=== PATIENT | female | born 1935 | race Caucasian/White ===

== ENCOUNTER 2016-12-10 06:57 | Day surgery (SDC) | payer MEDICARE ==
[2016-12-08 13:23] VITALS: BMI 39.3
[~2016-12-10 06:57] MED LIST: LACTATED RINGERS 1,000 ML IV SCH
[2016-12-10 07:12] VITALS: TEMP 97.1
[2016-12-10] MEDS ORDERED: LACTATED RINGERS 1,000 ML IV ONE (07:17)
[2016-12-10 07:21] LABS: Glucose,Whole Blood 67 mg/dL (75-99)
[2016-12-10] MEDS ORDERED: DEXTROSE 50%-WATER 50 ML SYRINGE IVP ONE (07:28)
[2016-12-10] MEDS ORDERED: PROPOFOL 10 MG/ML 20 ML VIAL IV ONE (07:32)
[2016-12-10 08:08] VITALS: RESP 16
--- NOTE | 2016-12-10 08:10 | P.PCN ---
Date of Procedure: 12/10/16 Procedure(s) Performed: BRIEF HISTORY: Patient is a 81-year-old pleasant white female, scheduled for an elective colonoscopy as a part of evaluation of prior history of colon polyps. Her last colonoscopy was in 5 years ago. PROCEDURE PERFORMED: Colonoscopy. PREOPERATIVE DIAGNOSIS: History of colon polyps. IV sedation per Anesthesia. PROCEDURE: After informed consent was obtained, the patient, was brought into the endoscopy unit. IV conscious sedation was administered by Anesthesia under continuous monitoring. Initially the Olympus CF-160 flexible video colonoscope was then inserted in the rectum, gradually advanced into the cecum without any difficulty. Careful examination was performed as the scope was gradually being withdrawn. Ileocecal valve and the appendiceal orifice were visualized and appeared normal. Prep was excellent. Mucosa of the cecum, ascending colon, transverse colon, descending colon, sigmoid colon, and rectum appeared normal. Scattered sigmoid diverticulosis seen. Retroflexion was performed in the rectum and small internal hemorrhoids were seen. The patient tolerated the procedure well. IMPRESSION: Normal-appearing colon from rectum to cecum with no evidence of colorectal neoplasia. Scattered sigmoid diverticulosis and small internal hemorrhoids RECOMMENDATIONS: Findings of this examination were discussed with the patient as well as a family. She was advised to be a high-fiber diet and take fiber supplements a regular basis. At her age I would not recommend any further surveillance colonoscopy..
[2016-12-10 08:15] LABS: Glucose,Whole Blood 168 mg/dL (75-99)
[2016-12-10 08:24] VITALS: BP 128/48; PULSE 66
== END 2016-12-10 08:51 | disposition home or self-care (01) ==
LOC: ORWHC2ENDO 06:57
PROVIDERS: ATTEND Internal Medicine Gastroenterology
DX: Z12.11 Encounter for screening for malignant neoplasm of colon (principal); K57.30 Diverticulosis of large intestine without perforation or abscess without bleeding; K64.8 Other hemorrhoids; I25.10 Atherosclerotic heart disease of native coronary artery without angina pectoris; I10 Essential (primary) hypertension; E78.5 Hyperlipidemia, unspecified; G47.33 Obstructive sleep apnea (adult) (pediatric); E11.9 Type 2 diabetes mellitus without complications; K21.9 Gastro-esophageal reflux disease without esophagitis; Z86.010 Personal history of colon polyps; Z79.84 Long term (current) use of oral hypoglycemic drugs; Z79.02 Long term (current) use of antithrombotics/antiplatelets; Z79.899 Other long term (current) drug therapy
CPT/HCPCS: J2704; G0105

== ENCOUNTER → 2017-04-20 | Outpatient (CLI) | payer MEDICARE | END | disposition home or self-care (01) | LOC: LABWHC1 14:38 | PROVIDERS: ATTEND Nurse Practitioner Family | DX: N18.3 Chronic kidney disease, stage 3 (moderate) (principal) | CPT/HCPCS: 36415; 84132 ==

== ENCOUNTER → 2017-05-18 | Outpatient (CLI) | payer MEDICARE ==
--- NOTE | 2017-05-19 09:49 | MM ---
Reason for exam: screening (asymptomatic). Last mammogram was performed 1 year ago. History: Patient is postmenopausal. Physical Findings: A clinical breast exam by your physician is recommended on an annual basis and results should be correlated with mammographic findings. MG Screening Mammo w CAD Bilateral CC and MLO view(s) were taken. Prior study comparison: May 14, 2016, bilateral MG screening mammo w CAD. May 09, 2015, bilateral MG screening mammo w CAD. May 08, 2014, bilateral MG screening mammo w CAD. There are scattered fibroglandular densities. There is chronic nodularity bilaterally. No significant changes when compared with prior studies. ASSESSMENT: Benign, BI-RAD 2 RECOMMENDATION: Routine screening mammogram of both breasts in 1 year.
== END | disposition home or self-care (01) ==
LOC: RADMAMWWP 13:04
PROVIDERS: ATTEND Internal Medicine
DX: Z12.31 Encounter for screening mammogram for malignant neoplasm of breast (principal)

== ENCOUNTER → 2017-07-01 | Outpatient (CLI) | payer MEDICARE ==
[2017-07-01 10:42] LABS: Calcium 9.1 mg/dL (8.4-10.2); Potassium 3.3 mmol/L (3.5-5.1); Total Bilirubin 0.5 mg/dL (0.2-1.3); Total Protein 6.6 g/dL (6.3-8.2)
== END | disposition home or self-care (01) ==
LOC: LABWHC1 09:16
PROVIDERS: ATTEND Internal Medicine Interventional Cardiology
DX: E87.6 Hypokalemia (principal); E78.2 Mixed hyperlipidemia
CPT/HCPCS: 36415; 80053; 80061

== ENCOUNTER → 2017-07-11 | Outpatient (CLI) | payer MEDICARE ==
[2017-07-11 14:54] LABS: Calcium 8.9 mg/dL (8.4-10.2); Magnesium 1.9 mg/dL (1.6-2.3); Phosphorus 3.7 mg/dL (2.5-4.5); Potassium 3.8 mmol/L (3.5-5.1); Total Bilirubin 0.4 mg/dL (0.2-1.3); Total Protein 6.4 g/dL (6.3-8.2); Uric Acid 10.7 mg/dL (3.7-7.4)
[2017-07-11 16:15] LABS: CH 30.2; CHCM 32.1; HCT 31.1 % (34.0-46.0); HDW 2.55; HGB 10.2 gm/dL (11.4-16.0); MCH 31.1 pg (25.0-35.0); MCHC 32.9 g/dL (31.0-37.0); MCV 94.6 fL (80.0-100.0); Mean Platelet Volume 8.4; RBC 3.29 m/uL (3.80-5.40); RDW 14.7 % (11.5-15.5); WBC 11.3 k/uL (3.8-10.6)
[2017-07-11 17:34] LABS: Appearance,Urine Clear (Clear); Bacteria,Urine Rare /hpf; Bilirubin,Urine Negative (Negative); Glucose,Urine (UA) Negative (Negative); Ketones,Urine Negative (Negative); Leukocyte Esterase,Urine Small (Negative); Mucus,Urine Rare /hpf; Nitrite,Urine Negative (Negative); PH, Urine 7.5 (5.0-8.0); Particle Count 1205; Protein,Urine Trace (Negative); RBC,Urine 2 /hpf (0-5); Squamous Epithelial Cell,Urine 2 /hpf (0-4); UA Billing (MACRO vs. MICRO) MICRO; Urobilinogen,Urine <2.0 mg/dL (<2.0); WBC,Urine 11 /hpf (0-5)
[2017-07-11 20:15] LABS: Iron Saturation 11.95 (12.00-45.00)
[2017-07-12 03:06] LABS: Urine Creatinine 74.4 mg/dL
== END | disposition home or self-care (01) ==
LOC: LABWHC1 12:09
PROVIDERS: ATTEND Nurse Practitioner Family
DX: N18.3 Chronic kidney disease, stage 3 (moderate) (principal); D63.1 Anemia in chronic kidney disease; N39.0 Urinary tract infection, site not specified; R80.9 Proteinuria, unspecified; E21.3 Hyperparathyroidism, unspecified; E55.9 Vitamin D deficiency, unspecified; M10.9 Gout, unspecified
CPT/HCPCS: 36415; 80053; 81001; 82043; 82306; 82570; 82728; 83540; 83550; 83735; 83970; 84100; 84550; 85027

== ENCOUNTER → 2017-08-30 | Outpatient (CLI) | payer MEDICARE ==
[2017-08-30 10:21] LABS: Calcium 9.4 mg/dL (8.4-10.2); Potassium 4.2 mmol/L (3.5-5.1); Total Bilirubin 0.4 mg/dL (0.2-1.3); Total Protein 6.4 g/dL (6.3-8.2)
== END | disposition home or self-care (01) ==
LOC: LABWHC1 08:40
PROVIDERS: ATTEND Internal Medicine Interventional Cardiology
DX: E78.2 Mixed hyperlipidemia (principal); E11.9 Type 2 diabetes mellitus without complications
CPT/HCPCS: 36415; 80053; 80061; 83036

== ENCOUNTER 2017-11-16 06:03 | Day surgery (SDC) | payer MEDICARE ==
[2017-11-07 11:56] VITALS: BMI 34.5
[~2017-11-16 06:03] MED LIST changes: +ALPRAZolam 0.25 MG TAB PO PRN; +ALPRAZolam 0.5 MG TAB PO PRN; +ASPIRIN 325 MG TAB PO STA; +ATORVASTATIN 80 MG TAB PO STA; -LACTATED RINGERS 1,000 ML IV SCH; +NITROGLYCERIN SL TABS 0.4 MG TAB SUBLINGUAL PRN; +SODIUM CHLORIDE 0.9% 1,000 ML in EMPTY BAG 1 BAG IV ONE
[2017-11-16 06:27] LABS: Glucose,Whole Blood 177 mg/dL (75-99)
[2017-11-16 06:37] VITALS: TEMP 99.1
[2017-11-16] MEDS ORDERED: fentaNYL (PF) 50 MCG/ML 2 ML AMP ONE ×2 (06:48→10:00)
[2017-11-16] MEDS ORDERED: MIDAZOLAM 2 MG/2 ML VIAL ONE (06:49)
[2017-11-16 06:51] LABS: Anion Gap 11 mmol/L; Blood Urea Nitrogen 22 mg/dL (7-17); Calcium 8.6 mg/dL (8.4-10.2); Carbon Dioxide 22 mmol/L (22-30); Chloride 104 mmol/L (98-107); Glucose 172 mg/dL (74-99); Potassium 4.2 mmol/L (3.5-5.1); Sodium 137 mmol/L (137-145)
[2017-11-16] MEDS: BENZOCAINE SPRAY 1 SPRAY CAN MUCOUS MEM ONE ×5 (07:00→07:44)
[2017-11-16] MEDS ORDERED: SODIUM CHLORIDE 0.9% 1,000 ML IV ONE (07:14)
[2017-11-16] MEDS ORDERED: fentaNYL (PF) 50 MCG/ML 2 ML AMP IVP ONE ×2 (07:20→10:02)
[2017-11-16] MEDS: MIDAZOLAM 2 MG/2 ML VIAL IVP ONE ×2 (07:20→07:21)
--- NOTE | 2017-11-16 08:10 | ECHOT ---
TRANSESOPHAGEAL ECHOCARDIOGRAM INDICATION: Evaluation of aortic valve. PROCEDURE: After explaining the procedure to the patient as well as the risks and complications, blood pressure, heart rate, with sedation was monitored. The throat was sprayed with Cetacaine. She received 2 mg intravenous Versed, 25 mcg intravenous fentanyl. After achieving moderate conscious sedated state, the probe was introduced in the esophagus without difficulty. Images were obtained. Following that, the probe was removed. There was no immediate complication. FINDINGS: Left atrial size is mildly dilated. Left atrial appendage is normal. Left ventricular size and systolic function normal. Concentric left ventricular hypertrophy was noted. The aortic valve is a tricuspid valve calcified with reduced opening. By planimetry, the valve areas ranging between 0.7 and 1.0 centimeter square. The mitral valve revealed annulus calcification. Tricuspid valve appears normal. Descending thoracic aorta revealed moderate atherosclerotic changes. No pericardial effusion was noted. Contrast bubble study revealed no evidence of shunting across the interatrial septum. Doppler, pulse wave and color Doppler obtained and revealed a mild mitral, aortic, and tricuspid regurgitation. The peak gradient across the aortic valve was 71 mmHg with a mean of 50 mmHg. A [id number] shunting through a patent foramen ovale was noted. CONCLUSION: 1. Mildly dilated left atrium with normal appearance of left atrial appendage. 2. Normal left ventricular size and systolic function with concentric left ventricular hypertrophy. 3. Severe aortic stenosis with a mean gradient of 50 mmHg with mild aortic regurgitation. 4. Mitral annulus calcification with mild mitral regurgitation. 5. Mild tricuspid regurgitation. 6. Moderate atherosclerotic changes of the descending thoracic aorta. 7. Patent foramen ovale with [id number] shunting. 8. No pericardial effusion was noted. MMODL / IJN: [id number] /
[2017-11-16 08:47] VITALS: PULSE 98
[2017-11-16 08:54] LABS: Basophils % (A) 0 %; Eosinophils # (A) 0.2 k/uL (0-0.7); Eosinophils % (A) 2 %; HCT 30.5 % (34.0-46.0); HGB 10.2 gm/dL (11.4-16.0); Lymphocytes # (A) 1.5 k/uL (1.0-4.8); Lymphocytes % (A) 15 %; MCH 31.7 pg (25.0-35.0); MCHC 33.4 g/dL (31.0-37.0); MCV 95.1 fL (80.0-100.0); Mean Platelet Volume 8.1; Monocytes # (A) 0.7 k/uL (0-1.0); Monocytes % (A) 7 %; Neutrophils # (A) 7.4 k/uL (1.3-7.7); Neutrophils % (A) 75 %; Platelet Count 227 k/uL (150-450); RBC 3.21 m/uL (3.80-5.40); RDW 14.1 % (11.5-15.5)
[2017-11-16] MEDS ORDERED: IV FLUID CONTINUATION 300 ML IV ONE (09:47)
[2017-11-16 09:59] LABS: Glucose,Whole Blood 184 mg/dL (75-99)
[2017-11-16] MEDS ORDERED: LIDOCAINE 2% INJ 20 MG/ML SQ ONE (10:04)
[2017-11-16 10:26] LABS: O2 Sat Blood Gas 59.4 %
[2017-11-16 10:28] LABS: O2 Sat Blood Gas 85.6 %
[2017-11-16 10:30] LABS: O2 Sat Blood Gas 57.6 %
[2017-11-16] MEDS ORDERED: IODIXANOL 320 MG/ML 100 ML INTRAARTER ONE (10:35)
[2017-11-16] MEDS ORDERED: RX INFO: IV CONTRAST WAS GIVEN 1 EACH MISC MISCELLANE PRN (10:39)
[2017-11-16] MEDS ORDERED: NITROGLYCERIN SL TABS 0.4 MG TAB SUBLINGUAL PRN (10:40)
[2017-11-16] MEDS ORDERED: PROCRIT INJ SCH (10:45)
[2017-11-16] MEDS ORDERED: SODIUM CHLORIDE 0.9% 1,000 ML IV SCH (10:45)
[2017-11-16] MEDS ORDERED: amLODIPine 5 MG TAB PO STA (10:53)
[2017-11-16] MEDS ORDERED: FUROSEMIDE 10 MG/ML 4 ML VIAL ONE (10:53)
[2017-11-16] MEDS ORDERED: FUROSEMIDE 10 MG/ML 2 ML VIAL IV ONE (10:53)
[2017-11-16] MEDS ORDERED: hydrALAZINE HCL 50 MG TAB PO STA (11:27)
--- NOTE | 2017-11-16 11:43 | CC ---
CARDIAC CATHETERIZATION REPORT Mrs. Fajardo is an 82-year-old female known history of hypertension, hyperlipidemia, diabetes mellitus, as well, history of aortic stenosis, who has been complaining of progressive dyspnea and fatigue and she had evidence of progressive aortic stenosis. In view of that, recommendation made regarding cardiac catheterization. The procedures, risks and complications were discussed with the patient who is in full understanding and agreement. PROCEDURE: Patient was brought to [facility] in fasting semi-sedated state after receiving fentanyl and Benadryl and achieving moderate conscious sedated state. Using Xylocaine anesthesia and Seldinger technique, a 6-Turkmen sheath was introduced in the right femoral artery and an 8-Turkmen sheath in the right femoral vein. Right heart catheterization was performed using Harford-Garry catheter, multiple pressure and samples were obtained. Cardiac output by thermodilution was calculated. Following that, selective right and left coronary angiography were performed using 6-Turkmen 4 bend right and left Sharon catheter and multiple views of the coronary artery including hemiaxial views were obtained. Following that, the right Sharon catheter was used to cross the aortic valve and simultaneous pressure was performed. Following that, catheter and sheaths were removed. Hemostasis was obtained with compression of the right groin. There were no immediate complications. Patient was returned to her room in stable condition. FINDINGS: HEMODYNAMICS: Pulmonary saturation 60%, right atrial saturation 8%, femoral artery saturation of 86%. Cardiac output by thermodilution 9.5 L/minute and by KATHRYN 5.6 mL/minute. Pulmonary artery systolic pressure of 60 with a diastolic of 10 and mean of 30 mmHg. Pulmonary capillary wedge pressure: A-wave of 30, V-wave of 25 with a mean of 22 mmHg. Right ventricular systolic pressure of 60 with an end-diastolic pressure of 8 mmHg. Right atrium pressure of A-wave of 12 with a V-wave of 12 and a mean of 12 mmHg. Left ventricular end-diastolic pressure 24 mm Hg. The peak gradient across the aortic valve was close to 60 mmHg. Aortic valve area by HAKKI formula 0.7 cm2. CORONARIES: 1. FLUOROSCOPY: There is calcification involving the coronary arteries as well as the aortic valve. 2. LEFT MAIN: This is a large-sized vessel bifurcating into left circumflex, left anterior descending artery, left main coronary artery has no evidence of high-grade stenosis. 3. LEFT ANTERIOR DESCENDING ARTERY: This is a large-sized vessel reaching toward the apex with a wraparound apex segment giving rise to a large diagonal branch proximally. The mid LAD has a 40% plaque. The rest of the vessel has no high- grade stenosis. 4. RIGHT CORONARY ARTERY: This is a large nondominant vessel giving rise to a large obtuse marginal branch. The left circumflex has a 40% plaque in the proximal segment with intimal disease into the OM branch. 5. RIGHT CORONARY ARTERY: This is a dominant vessel giving rise to a PDA distally. The right coronary artery at the ostium has a plaque of 40%. The rest of the vessel has no high-grade stenosis. CONCLUSION: 1. Calcified coronary arteries. 2. Mild triple-vessel coronary artery disease. 3. Severe aortic stenosis with evidence of pulmonary hypertension. RECOMMENDATION: In view of the findings, I recommend proceeding with evaluation for aortic valve replacement. Those findings and recommendation were discussed with the patient and her family who are in full understanding and agreement. DURATION OF THE PROCEDURE: 30 minutes. MMODL / IJN: [id number] /
[2017-11-16] MEDS ORDERED: ASCORBIC ACID 500 MG TAB PO SCH (12:00)
[2017-11-16] MEDS ORDERED: DOCUSATE 100 MG CAP PO SCH (13:00)
[2017-11-16] MEDS ORDERED: HYDROmorphone 4 MG/ML 1 ML SYRINGE IVP STA (13:01)
[2017-11-16] MEDS ORDERED: hydrALAZINE HCL 50 MG TAB PO SCH (16:00)
[2017-11-16] MEDS ORDERED: glipiZIDE 10 MG TAB PO SCH (17:30)
[2017-11-16 18:24] VITALS: RESP 22
[2017-11-16 18:25] VITALS: BP 140/91
[2017-11-16] MEDS ORDERED: ALLOPURINOL 100 MG TAB PO SCH (21:00)
[2017-11-16] MEDS ORDERED: NON-FORMULARY DRUG (Lovastatin 40 MG) PO SCH (21:00)
[2017-11-17] MEDS ORDERED: CLOPIDOGREL 75 MG TAB PO SCH (09:00)
[2017-11-17] MEDS ORDERED: METOPROLOL SUCCINATE (ER) 50 MG TAB.ER.24H PO SCH (09:00)
[2017-11-17] MEDS ORDERED: MAGNESIUM OXIDE 400 MG TAB PO SCH (09:00)
[2017-11-17] MEDS ORDERED: VITAMIN E ACETATE 200 UNIT PO SCH (09:00)
[2017-11-17] MEDS ORDERED: MULTIVITAMINS, THERA 1 EACH TAB PO SCH (09:00)
== END 2017-11-16 18:20 | disposition home or self-care (01) ==
LOC: CATHCVL 06:03
PROVIDERS: ATTEND Internal Medicine Interventional Cardiology
DX: I08.3 Combined rheumatic disorders of mitral, aortic and tricuspid valves (principal); I70.0 Atherosclerosis of aorta; Q21.1 Atrial septal defect; I25.10 Atherosclerotic heart disease of native coronary artery without angina pectoris; I12.9 Hypertensive chronic kidney disease with stage 1 through stage 4 chronic kidney disease, or unspecified chronic kidney disease; N18.9 Chronic kidney disease, unspecified; E11.22 Type 2 diabetes mellitus with diabetic chronic kidney disease; E78.00 Pure hypercholesterolemia, unspecified; Z82.49 Family history of ischemic heart disease and other diseases of the circulatory system; Z79.84 Long term (current) use of oral hypoglycemic drugs; Z79.02 Long term (current) use of antithrombotics/antiplatelets; Z79.899 Other long term (current) drug therapy; Z88.1 Allergy status to other antibiotic agents
CPT/HCPCS: 93312; 93320; 93325; 93460; 80048; 85018; 82810; 85025; C1769 ×3; C1894 ×2; J2001; J2250; J1940 ×2; Q9967; J3010; J1170

== ENCOUNTER 2017-11-17 14:09 | Inpatient (IN) | payer MEDICARE ==
[2017-11-17] MEDS ORDERED: ACETAMINOPHEN TAB 500 MG TAB PO STA (14:22)
[2017-11-17] MEDS ORDERED: cefTRIAXone IN SWFI 1,000 MG/10 ML SYRINGE IVP STA (14:22)
[2017-11-17] MEDS ORDERED: IPRATROPIUM-ALBUTEROL 3 ML NEB INHALATION STA (14:23)
[2017-11-17] MEDS ORDERED: IBUPROFEN IV 600 MG in SODIUM CHLORIDE 0.9% 250 ML IV STA (14:25)
[2017-11-17 14:45] LABS: Basophils % (A) 0 %; Eosinophils # (A) 0.2 k/uL (0-0.7); Eosinophils % (A) 1 %; HCT 31.6 % (34.0-46.0); HGB 10.3 gm/dL (11.4-16.0); Lymphocytes # (A) 0.8 k/uL (1.0-4.8); Lymphocytes % (A) 7 %; MCH 30.4 pg (25.0-35.0); MCHC 32.6 g/dL (31.0-37.0); MCV 93.4 fL (80.0-100.0); Mean Platelet Volume 7.5; Monocytes # (A) 0.5 k/uL (0-1.0); Monocytes % (A) 4 %; Neutrophils # (A) 10.6 k/uL (1.3-7.7); Neutrophils % (A) 87 %; Platelet Count 281 k/uL (150-450); RBC 3.39 m/uL (3.80-5.40); WBC 12.2 k/uL (3.8-10.6)
--- NOTE | 2017-11-17 14:45 | ED ---
General Adult HPI - General Chief complaint: Shortness of Breath Stated complaint: heart problems Time Seen by Provider: 11/17/17 14:10 Source: patient, family, RN notes reviewed Mode of arrival: wheelchair Limitations: no limitations - History of Present Illness Initial comments: This is an 82-year-old female presents emergency Department complaining that she short of breath and coughing and coughing up quite a bit of sputum. Patient states he symptoms began yesterday and continued to worsen today. Patient states she is not expressing any chest pain or palpitations. But or shortness of breath is getting worse with exertion. Patient denies any lightheadedness or dizziness patient denies any numbness weakness. Patient denies any headache. Patient denies abdominal pain patient denies nausea vomiting or diarrhea. Patient denies any increased leg swelling. Patient denies any calf pain. Patient states she did get a flu shot. - Related Data Home Medications Medication Instructions Recorded Confirmed Lovastatin [Mevacor] 40 mg PO HS 06/23/14 11/17/17 Potassium Chloride [K-Tab ER] 40 meq PO DAILY 06/23/14 11/17/17 Clopidogrel [Plavix] 75 mg PO DAILY 03/18/16 11/17/17 Furosemide [Lasix] 60 mg PO BID 03/18/16 11/17/17 hydrALAZINE HCL [Apresoline] 50 mg PO TID 12/08/16 11/17/17 Docusate [Colace] 100 mg PO DAILY PRN 02/17/17 11/17/17 Magnesium Oxide 400 mg PO DAILY 02/17/17 11/17/17 Allopurinol [Zyloprim] 100 mg PO BID 04/28/17 11/17/17 Metoprolol Succinate [Toprol Xl] 50 mg PO DAILY 11/07/17 11/17/17 Procrit (Unknown Dose) 1 dose INJ DIRECTED 11/07/17 11/17/17 Vitamin E Acetate [Vitamin E] 200 unit PO DAILY 11/07/17 11/17/17 Ferrous Sulfate [Feosol] 325 mg PO DAILY 11/17/17 11/17/17 Fluticasone Nasal Dixon [Flonase 1 spr EA NOSTRIL DAILY 11/17/17 11/17/17 Nasal Dixon] Hydrocortisone Cream 1 applic TOPICAL BID 11/17/17 11/17/17 [Hydrocortisone 2.5% Cream] Sodium Bicarbonate Tab 325 mg PO TID 11/17/17 11/17/17 Triamcinolone 0.025% Cream 1 applic TOPICAL BID PRN 11/17/17 11/17/17 [Kenalog 0.025% Cream] glipiZIDE XL [Glucotrol XL] 10 mg PO AC-BID 11/17/17 11/17/17 Previous Rx's Medication Instructions Recorded Nitroglycerin Sl Tabs [Nitrostat] 0.4 mg SUBLINGUAL Q5M PRN #25 tab 02/12/16 Allergies Allergy/AdvReac Type Severity Reaction Status Date / Time cephalexin monohydrate Allergy Rash/Hives Verified 11/17/17 14:27 [From [facility]] Review of Systems ROS Statement: Those systems with pertinent positive or pertinent negative responses have been documented in the HPI. ROS Other: All systems not noted in ROS Statement are negative. Past Medical History Past Medical History: Coronary Artery Disease (CAD), Diabetes Mellitus, GERD/ Reflux, Hyperlipidemia, Hypertension, Osteoarthritis (OA), Renal Disease Additional Past Medical History / Comment(s): USES A WALKER, LEG SWELLING, MURMUR, SINUS PROBLEMS, BENIGN POLYPS, INCONT OF URINE, PAST HX ANEMIA, "kidney function-3.5" History of Any Multi-Drug Resistant Organisms: None Reported Past Surgical History: Heart Catheterization Additional Past Surgical History / Comment(s): CATARACT SURGERY, COLONOSCOPY Past Anesthesia/Blood Transfusion Reactions: No Reported Reaction Past Psychological History: No Psychological Hx Reported Smoking Status: Former smoker Past Alcohol Use History: None Reported Past Drug Use History: None Reported - Past Family History Mother Family Medical History: CVA/TIA, Diabetes Mellitus Father Family Medical History: Cancer, Coronary Artery Disease (CAD) Brother(s) Family Medical History: CVA/TIA, Diabetes Mellitus Sister(s) Family Medical History: Dementia Son(s) Family Medical History: No Reported History Daughter(s) Family Medical History: No Reported History General Exam - General Exam Comments Initial Comments: GENERAL: Patient is well-developed and well-nourished. Patient is nontoxic and well- hydrated and is in mild distress. ENT: Neck is soft and supple. No significant lymphadenopathy is noted. Oropharynx is clear. Moist mucous membranes. Neck has full range of motion without eliciting any pain. EYES: The sclera were anicteric and conjunctiva were pink and moist. Extraocular movements were intact and pupils were equal round and reactive to light. Eyelids were unremarkable. PULMONARY: Patient has crackles in the left base along with some expiratory wheezing. CARDIOVASCULAR: There is a regular rate and rhythm without any murmurs gallops or rubs. ABDOMEN: Soft and nontender with normal bowel sounds. No palpable organomegaly was noted. There is no palpable pulsatile mass. SKIN: Skin is clear with no lesions or rashes and otherwise unremarkable. NEUROLOGIC: Patient is alert and oriented x3. Cranial nerves II through XII are grossly intact. Motor and sensory are also intact. Normal speech, volume and content. Symmetrical smile. MUSCULOSKELETAL: Normal extremities with adequate strength and full range of motion. No lower extremity swelling or edema. No calf tenderness. LYMPHATICS: No significant lymphadenopathy is noted PSYCHIATRIC: Normal psychiatric evaluation. Normal interpersonal interactions appears functionally intact in deals appropriately with others. No signs of depression. No signs of anxiety. Limitations: no limitations Course Vital Signs 11/17/17 11/17/17 11/17/17 14:10 14:14 14:38 Temperature 100.7 F H Pulse Rate 98 104 H Respiratory 24 20 Rate Blood Pressure 136/83 O2 Sat by Pulse 93 L Oximetry 11/17/17 11/17/17 14:44 15:43 Temperature Pulse Rate 108 H 90 Respiratory 18 Rate Blood Pressure 95/69 O2 Sat by Pulse 98 Oximetry Medical Decision Making - Medical Decision Making EKG shows sinus rhythm at 99 bpm with occasional PACs as well as PVCs. Patient' s MO interval is 170 QRS is 92 QT interval 384 QTC is 492. Patient's EKG shows no significant ST segment elevation or depression Chest x-ray shows a left lower lobe pneumonia consistent with her clinical exam. I spoke with Dr. May he agreed to admit the patient admitted the patient I wrote admitting orders Patient got Rocephin because she believes she was nauseous with Keflex. - Lab Data Result diagrams: 11/17/17 14:30 11/17/17 14:30 Lab Results 11/17/17 11/17/17 11/17/17 Range/Units 14:30 14:30 14:30 WBC 12.2 H (3.8-10.6) k/uL RBC 3.39 L (3.80-5.40) m/uL Hgb 10.3 L (11.4-16.0) gm/dL Hct 31.6 L (34.0-46.0) % MCV 93.4 (80.0-100.0) fL MCH 30.4 (25.0-35.0) pg MCHC 32.6 (31.0-37.0) g/dL RDW 14.0 (11.5-15.5) % Plt Count 281 (150-450) k/uL Neutrophils % 87 % Lymphocytes % 7 % Monocytes % 4 % Eosinophils % 1 % Basophils % 0 % Neutrophils # 10.6 H (1.3-7.7) k/uL Lymphocytes # 0.8 L (1.0-4.8) k/uL Monocytes # 0.5 (0-1.0) k/uL Eosinophils # 0.2 (0-0.7) k/uL Basophils # 0.0 (0-0.2) k/uL PT 11.1 (9.0-12.0) sec INR 1.2 H (<1.2) APTT 24.8 (22.0-30.0) sec Sodium 133 L (137-145) mmol/L Potassium 4.5 (3.5-5.1) mmol/L Chloride 101 (98-107) mmol/L Carbon Dioxide 20 L (22-30) mmol/L Anion Gap 12 mmol/L BUN 23 H (7-17) mg/dL Creatinine 1.20 H (0.52-1.04) mg/dL Est GFR (MDRD) Af Amer 52 (>60 ml/min/1.73 sqM) Est GFR (MDRD) Non-Af 43 (>60 ml/min/1.73 sqM) Glucose 206 H (74-99) mg/dL Plasma Lactic Acid Evgeny (0.7-2.0) mmol/L Calcium 8.6 (8.4-10.2) mg/dL Total Bilirubin 0.9 (0.2-1.3) mg/dL AST 26 (14-36) U/L ALT 11 (9-52) U/L Alkaline Phosphatase 56 (38-126) U/L Total Protein 6.5 (6.3-8.2) g/dL Albumin 3.4 L (3.5-5.0) g/dL Influenza Type A RNA (Not Detectd) Influenza Type B (PCR) (Not Detectd) 11/17/17 11/17/17 Range/Units 14:44 15:20 WBC (3.8-10.6) k/uL RBC (3.80-5.40) m/uL Hgb (11.4-16.0) gm/dL Hct (34.0-46.0) % MCV (80.0-100.0) fL MCH (25.0-35.0) pg MCHC (31.0-37.0) g/dL RDW (11.5-15.5) % Plt Count (150-450) k/uL Neutrophils % % Lymphocytes % % Monocytes % % Eosinophils % % Basophils % % Neutrophils # (1.3-7.7) k/uL Lymphocytes # (1.0-4.8) k/uL Monocytes # (0-1.0) k/uL Eosinophils # (0-0.7) k/uL Basophils # (0-0.2) k/uL PT (9.0-12.0) sec INR (<1.2) APTT (22.0-30.0) sec Sodium (137-145) mmol/L Potassium (3.5-5.1) mmol/L Chloride (98-107) mmol/L Carbon Dioxide (22-30) mmol/L Anion Gap mmol/L BUN (7-17) mg/dL Creatinine (0.52-1.04) mg/dL Est GFR (MDRD) Af Amer (>60 ml/min/1.73 sqM) Est GFR (MDRD) Non-Af (>60 ml/min/1.73 sqM) Glucose (74-99) mg/dL Plasma Lactic Acid Evgeny 1.4 (0.7-2.0) mmol/L Calcium (8.4-10.2) mg/dL Total Bilirubin (0.2-1.3) mg/dL AST (14-36) U/L ALT (9-52) U/L Alkaline Phosphatase (38-126) U/L Total Protein (6.3-8.2) g/dL Albumin (3.5-5.0) g/dL Influenza Type A RNA Not Detected (Not Detectd) Influenza Type B (PCR) Not Detected (Not Detectd) Disposition Clinical Impression: Pneumonia Disposition: ADMITTED IP TO THIS HOSP Referrals: Doug Chambers MD [Primary Care Provider] - 1-2 days Time of Disposition: 15:59
[2017-11-17 14:56] LABS: Albumin 3.4 g/dL (3.5-5.0); Calcium 8.6 mg/dL (8.4-10.2); Potassium 4.5 mmol/L (3.5-5.1); Total Bilirubin 0.9 mg/dL (0.2-1.3); Total Protein 6.5 g/dL (6.3-8.2)
[2017-11-17 14:59] LABS: INR 1.2 (<1.2); Partial Thromboplastin Time 24.8 sec (22.0-30.0); Prothrombin Time 11.1 sec (9.0-12.0)
--- NOTE | 2017-11-17 16:01 | XR ---
EXAMINATION TYPE: XR chest 2V DATE OF EXAM: 11/17/2017 COMPARISON: 02/09/2016 TECHNIQUE: PA and lateral views submitted. HISTORY: Fever FINDINGS: Heart is enlarged and is atherosclerotic changes. Underlying COPD and chronic interstitial lung disea se suspected and there is small bilateral pleural effusions. Diffuse interstitial pattern noted and t here is basilar consolidation. IMPRESSION: 1. COPD with bilateral infiltrate and small effusion. There also is a diffuse interstitial pattern. D ifferential diagnosis would include CHF versus pneumonia. 2. Prominent right hilum may be related to positioning as the patient is slightly rotated and a promi nent pulmonary artery, pulmonary arterial hypertension. Follow-up exam could be obtained for further evaluation.
[2017-11-17] MEDS ORDERED: AZITHROMYCIN 500 MG in SODIUM CHLORIDE 0.9% 250 ML IVPB STA (16:02)
[2017-11-17] MEDS ORDERED: PNEUMONIA PROTOCOL UTILIZED 1 EACH MISC PO PRN (16:02)
[2017-11-17 16:17] LABS: Amorphous Sediment,Urine Occasional /hpf; Appearance,Urine Clear (Clear); Bacteria,Urine Many /hpf; Bilirubin,Urine Negative (Negative); Blood,Urine Negative (Negative); Color,Urine Yellow; Glucose,Urine (UA) Negative (Negative); Hyaline Casts,Urine 1 /lpf (0-2); Ketones,Urine Negative (Negative); Leukocyte Esterase,Urine Trace (Negative); Nitrite,Urine Negative (Negative); PH, Urine 6.5 (5.0-8.0); Protein,Urine 2+ (Negative); RBC,Urine 4 /hpf (0-5); Squamous Epithelial Cell,Urine 3 /hpf (0-4); Urobilinogen,Urine <2.0 mg/dL (<2.0); WBC,Urine 14 /hpf (0-5)
[2017-11-17] MEDS: FUROSEMIDE 20 MG TAB PO SCH (18:16)
[2017-11-17] MEDS ORDERED: DOCUSATE 100 MG CAP PO PRN (18:27)
[2017-11-17] MEDS: SODIUM BICARBONATE TAB 650 MG TAB PO SCH (20:26)
[2017-11-17] MEDS: ALLOPURINOL 100 MG TAB PO SCH (20:26)
[2017-11-17] MEDS: hydrALAZINE HCL 50 MG TAB PO SCH (20:26)
[2017-11-17] MEDS: ATORVASTATIN 10 MG TAB PO SCH (20:26)
[2017-11-17 21:31] LABS: Glucose,Whole Blood 199 mg/dL (75-99)
[2017-11-17] MEDS: INSULIN ASPART 100 UNIT/ML 1 ML 10 ML VIAL SQ SCH (22:45)
[2017-11-18 00:27] LABS: Creatine Kinase MB 1.5 ng/mL (0.0-2.4)
[2017-11-18 00:29] LABS: Troponin I 0.04 ng/mL (0.000-0.034)
[2017-11-18 01:50] LABS: Hemoglobin A1C 7.6 % (4.0-6.0)
[2017-11-18] MEDS ORDERED: DILTIAZEM 5 MG/ML 5 ML VIAL IVP STA (04:44)
[2017-11-18] MEDS: DILTIAZEM 125 MG in SODIUM CHLORIDE 0.9% 100 ML IV SCH (05:06)
[2017-11-18 05:59] LABS: Glucose,Whole Blood 145 mg/dL (75-99)
[2017-11-18] MEDS: INSULIN ASPART 100 UNIT/ML 1 ML 10 ML VIAL SQ SCH ×4 (06:08→20:47)
[2017-11-18] MEDS: glipiZIDE 5 MG TAB PO SCH ×2 (06:08→17:20)
--- NOTE | 2017-11-18 07:37 | XR ---
EXAMINATION TYPE: XR chest 2V DATE OF EXAM: 11/18/2017 COMPARISON: 11/17/2017 INDICATION: Pneumonia TECHNIQUE: Frontal and lateral views of the chest are obtained. FINDINGS: The heart size is mildly enlarged. The pulmonary vasculature is prominent. There is hyperinflation flattening the diaphragms compatible COPD. Right main pulmonary artery is pro minent at 2.5 cm. Minimal effusion at the left costophrenic angle is present.. IMPRESSION: 1. Minimal effusion left costophrenic angle. 2. Cardiomegaly with mild pulmonary vascular prominence. 3. Probable pulmonary hypertension
[2017-11-18] MEDS: POTASSIUM CHLORIDE ER 20 MEQ TAB.ER PO SCH (08:41)
[2017-11-18] MEDS: ALLOPURINOL 100 MG TAB PO SCH ×2 (08:41→20:44)
[2017-11-18] MEDS: MAGNESIUM OXIDE 400 MG TAB PO SCH (08:41)
[2017-11-18] MEDS: SODIUM BICARBONATE TAB 650 MG TAB PO SCH ×3 (08:41→20:44)
[2017-11-18] MEDS: METOPROLOL SUCCINATE (ER) 50 MG TAB.ER.24H PO SCH (08:41)
[2017-11-18] MEDS: FERROUS SULFATE 325 MG TAB PO SCH (08:41)
[2017-11-18] MEDS: hydrALAZINE HCL 50 MG TAB PO SCH ×3 (08:41→20:44)
[2017-11-18] MEDS: VITAMIN E (DL,TOCOPHERYL ACET) 400 UNIT CAP PO SCH (08:41)
[2017-11-18] MEDS: FUROSEMIDE 20 MG TAB PO SCH ×2 (08:41→15:38)
[2017-11-18] MEDS ORDERED: CLOPIDOGREL 75 MG TAB PO SCH (09:00)
[2017-11-18] MEDS ORDERED: HEPARIN SODIUM,PORCINE 5,000 UNIT/ML 1 ML VIAL IV ONE (11:15)
--- NOTE | 2017-11-18 11:24 | P.CRDCN ---
History of Present Illness Consult date: 11/18/17 Requesting physician: Zach May Reason for Consult (text): new onset A. Fib Chief complaint: productive cough with yellow/green sputum History of present illness: This is a pleasant 82-year-old female patient of Dr. Steh. She has history of diabetes, hypertension, dyslipidemia, severe aortic stenosis, recent cardiac catheterization that showed mild triple-vessel CAD and recent BISI that confirmed severe AF for which she was recommended further evaluation for replacement. Presented to the emergency department with complaints of worsening cough with yellow and green sputum as well as worsening shortness of breath. She was also found to have episodes of paroxysmal atrial fibrillation with rapid ventricular response which is new for her. Chest x-ray on admission showed COPD with bilateral infiltrate and small effusion, diffuse interstitial pattern, differential diagnosis would include CHF versus pneumonia. Laboratory values showed hemoglobin of 10.3 which is stable, white count 12.2, BUN of 23 and creatinine of 1.2 and troponin of 0.036 and 0.040. Upon examination, patient is sitting up on the edge of the bed. She denies complaints of chest discomfort or palpitations. She feels her breathing has improved and her cough is improved. She does have stable lower extremity edema and dyspnea on exertion which is also stable. Past Medical History Past Medical History: Coronary Artery Disease (CAD), Diabetes Mellitus, GERD/ Reflux, Hyperlipidemia, Hypertension, Osteoarthritis (OA), Renal Disease Additional Past Medical History / Comment(s): USES A WALKER, LEG SWELLING, MURMUR, SINUS PROBLEMS, BENIGN POLYPS, INCONT OF URINE, PAST HX ANEMIA, "kidney function-3.5", aortic stenosis History of Any Multi-Drug Resistant Organisms: None Reported Past Surgical History: Heart Catheterization Additional Past Surgical History / Comment(s): CATARACT SURGERY, COLONOSCOPY, bisi Past Anesthesia/Blood Transfusion Reactions: No Reported Reaction Smoking Status: Former smoker - Past Family History Mother Family Medical History: CVA/TIA, Diabetes Mellitus Father Family Medical History: Cancer, Coronary Artery Disease (CAD) Brother(s) Family Medical History: CVA/TIA, Diabetes Mellitus Sister(s) Family Medical History: Dementia Son(s) Family Medical History: No Reported History Daughter(s) Family Medical History: No Reported History Medications and Allergies Home Medications Medication Instructions Recorded Confirmed Type Lovastatin [Mevacor] 40 mg PO HS 06/23/14 11/17/17 History Potassium Chloride [K-Tab ER] 40 meq PO DAILY 06/23/14 11/17/17 History Nitroglycerin Sl Tabs [Nitrostat] 0.4 mg SUBLINGUAL Q5M PRN #25 tab 02/12/1605/27 Rx Clopidogrel [Plavix] 75 mg PO DAILY 03/18/16 11/17/17 History Furosemide [Lasix] 60 mg PO BID 03/18/16 11/17/17 History hydrALAZINE HCL [Apresoline] 50 mg PO TID 12/08/16 11/17/17 History Docusate [Colace] 100 mg PO DAILY PRN 02/17/17 11/17/17 History Magnesium Oxide 400 mg PO DAILY 02/17/17 11/17/17 History Allopurinol [Zyloprim] 100 mg PO BID 04/28/17 11/17/17 History Metoprolol Succinate [Toprol Xl] 50 mg PO DAILY 11/07/17 11/17/17 History Procrit (Unknown Dose) 1 dose INJ DIRECTED 11/07/17 11/17/17 History Vitamin E Acetate [Vitamin E] 200 unit PO DAILY 11/07/17 11/17/17 History Ferrous Sulfate [Feosol] 325 mg PO DAILY 11/17/17 11/17/17 History Fluticasone Nasal [place] [Flonase 1 spr EA NOSTRIL DAILY 11/17/17 11/17/17 History Nasal [place]] Hydrocortisone Cream 1 applic TOPICAL BID 11/17/17 11/17/17 History [Hydrocortisone 2.5% Cream] Sodium Bicarbonate Tab 325 mg PO TID 11/17/17 11/17/17 History Triamcinolone 0.025% Cream 1 applic TOPICAL BID PRN 11/17/17 11/17/17 History [Kenalog 0.025% Cream] glipiZIDE XL [Glucotrol XL] 10 mg PO AC-BID 11/17/17 11/17/17 History Allergies Allergy/AdvReac Type Severity Reaction Status Date / Time cephalexin monohydrate Allergy Rash/Hives Verified 11/17/17 14:27 [From Keflex] Physical Exam Vitals: Vital Signs Temp Pulse Pulse Resp BP BP Pulse Ox 11/18/17 07:53 97.6 F 144 H 18 110/56 93 L 11/18/17 04:00 96.8 F L 124 H 19 146/73 95 11/18/17 00:00 97.8 F 83 21 159/70 92 L 11/17/17 20:00 97.0 F L 67 19 134/58 96 11/17/17 17:56 96.8 F L 75 18 150/67 93 L 11/17/17 17:11 98.1 F 84 18 111/82 96 11/17/17 16:19 98.1 F 11/17/17 16:07 91 20 111/68 99 11/17/17 15:43 90 18 95/69 98 11/17/17 14:44 108 H 11/17/17 14:38 104 H 11/17/17 14:14 20 11/17/17 14:10 100.7 F H 98 24 136/83 93 L Intake and Output 11/17/17 11/18/17 11/18/17 22:59 06:59 14:59 Output Total 0 Balance 0 Output: Urine 0 Other: Voiding Method Incontinent Incontinent Incontinent # Voids 1 1 Weight 89.5 kg PHYSICAL EXAMINATION: HEENT: Head is atraumatic, normocephalic. Pupils equal, round. Neck is supple. There is no elevated jugular venous pressure. HEART EXAMINATION: Heart sounds irregularly irregular, S1 and S2 with a systolic ejection murmur. CHEST EXAMINATION: Lungs reveal left lower lobe crackles. No chest wall tenderness is noted on palpation or with deep breathing. ABDOMEN: Soft, nontender. Bowel sounds are heard. No organomegaly noted. EXTREMITIES: 2+ peripheral pulses with evidence of mild peripheral edema and no calf tenderness noted. NEUROLOGIC patient is awake, alert and oriented x3. . Results 11/17/17 14:30 11/17/17 14:30 Cardiac Enzymes 11/17/17 11/17/17 11/17/17 Range/Units 14:30 14:30 23:39 AST 26 (14-36) U/L CK-MB (CK-2) 1.5 (0.0-2.4) ng/mL Troponin I 0.036 H* 0.040 H* (0.000-0.034) ng/mL Coagulation 11/17/17 Range/Units 14:30 PT 11.1 (9.0-12.0) sec APTT 24.8 (22.0-30.0) sec CBC 11/17/17 Range/Units 14:30 WBC 12.2 H (3.8-10.6) k/uL RBC 3.39 L (3.80-5.40) m/uL Hgb 10.3 L (11.4-16.0) gm/dL Hct 31.6 L (34.0-46.0) % Plt Count 281 (150-450) k/uL Comprehensive Metabolic Panel 11/17/17 Range/Units 14:30 Sodium 133 L (137-145) mmol/L Potassium 4.5 (3.5-5.1) mmol/L Chloride 101 (98-107) mmol/L Carbon Dioxide 20 L (22-30) mmol/L BUN 23 H (7-17) mg/dL Creatinine 1.20 H (0.52-1.04) mg/dL Glucose 206 H (74-99) mg/dL Calcium 8.6 (8.4-10.2) mg/dL AST 26 (14-36) U/L ALT 11 (9-52) U/L Alkaline Phosphatase 56 (38-126) U/L Total Protein 6.5 (6.3-8.2) g/dL Albumin 3.4 L (3.5-5.0) g/dL Current Medications Generic Name Dose Route Start Last Admin Trade Name Freq PRN Reason Stop Dose Admin Allopurinol 100 mg 11/17/17 21:00 11/18/17 08:41 Zyloprim PO 100 mg BID OLIVIA Administration Atorvastatin Calcium 10 mg 11/17/17 21:00 11/17/17 20:26 Lipitor PO 10 mg HS OLIVIA Administration Azithromycin 500 mg 11/18/17 16:00 Zithromax PO DAILY@1600 [facility] Ceftriaxone Sodium 1,000 mg 11/18/17 12:00 Rocephin IVP 11/21/17 12:01 Q24H [facility] Docusate Sodium 100 mg 11/17/17 18:27 Colace PO DAILY PRN Constipation Ferrous Sulfate 325 mg 11/18/17 09:00 11/18/17 08:41 Feosol PO 325 mg DAILY OLIVIA Administration Furosemide 60 mg 11/17/17 17:15 11/18/17 08:41 Lasix PO 60 mg BID@0900,1600 [facility] Administration Glipizide 5 mg 11/18/17 07:30 11/18/17 06:08 Glucotrol PO 5 mg AC-BID OLIVIA Administration Heparin Sodium (Porcine) 4,000 unit 11/18/17 11:03 Heparin IV 11/18/17 11:04 ONCE ONE Heparin Sodium (Porcine) 0 unit 11/18/17 11:03 Heparin IV PER PROTOCOL PRN Low PTT Protocol Hydralazine HCl 50 mg 11/17/17 22:00 11/18/17 08:41 Apresoline PO 50 mg TID OLIVIA Administration Diltiazem HCl 125 mg/ Sodium 125 mls @ 5 mls/hr 11/18/17 04:45 11/18/17 05:06 Chloride IV 5 mg/hr .Q24H OLIVIA 5 mls/hr Protocol Administration 5 MG/HR Heparin Sodium/Sodium Chloride 500 mls @ 21.48 mls/hr 11/18/17 11:15 25,000 unit/ Sodium Chloride IV .[id number] [facility] Protocol 12 UNITS/KG/HR Insulin Aspart 0 unit 11/17/17 21:00 11/18/17 06:08 Novolog SQ Not Given ACHS [facility] Protocol Magnesium Oxide 400 mg 11/18/17 09:00 11/18/17 08:41 Mag-Ox PO 400 mg DAILY OLIVIA Administration Metoprolol Succinate 50 mg 11/18/17 09:00 11/18/17 08:41 Toprol Xl PO 50 mg DAILY OLIVIA Administration Miscellaneous Information 1 each 11/17/17 16:02 Pneumonia Protocol Utilized PO ONCE PRN Per Protocol Potassium Chloride 40 meq 11/18/17 09:00 11/18/17 08:41 K-Dur 20 PO 40 meq DAILY OLIVIA Administration Sodium Bicarbonate 325 mg 11/17/17 22:00 11/18/17 08:41 Sodium Bicarbonate Tab PO 325 mg TID OLIVIA Administration Vitamin E 400 unit 11/18/17 09:00 11/18/17 08:41 Vitamin E PO 400 unit DAILY [facility] Administration Warfarin Sodium 5 mg 11/18/17 18:00 Coumadin PO 11/18/17 18:01 ONCE@1800 ONE Intake and Output 11/17/17 11/18/17 11/18/17 22:59 06:59 14:59 Output Total 0 Balance 0 Output: Urine 0 Other: Voiding Method Incontinent Incontinent Incontinent # Voids 1 1 Weight 89.5 kg 11/17/17 14:30 11/17/17 14:30 Assessment and Plan Assessment: #1 possible pneumonia with symptoms of shortness of breath and productive cough with yellow-green sputum. #2 severe aortic stenosis #3 pulmonary hypertension #4 mild triple-vessel CAD #5 new-onset paroxysmal atrial fibrillation Plan: From cardiology's perspective, we will initiate the patient on a heparin drip. We will start Coumadin tonight 5 mg. We will discontinue Plavix as patient has no significant CAD. Further recommendations to follow. FLEXIBLE MACHINING SYSTEM MACHINIST note has been reviewed, I agree with a documented findings and plan of care. Patient was seen and examined.
[2017-11-18] MEDS: HEPARIN SOD,PORK IN 0.45% NACL 25,000 UNIT in 0.45% NACL 1 500ML.BAG IV SCH (11:27)
[2017-11-18] MEDS: cefTRIAXone IN SWFI 1,000 MG/10 ML SYRINGE IVP SCH (11:27)
[2017-11-18 11:41] LABS: Glucose,Whole Blood 290 mg/dL (75-99)
[2017-11-18 11:42] LABS: Basophils % (A) 0 %; Eosinophils # (A) 0.1 k/uL (0-0.7); Eosinophils % (A) 1 %; HCT 33.3 % (34.0-46.0); HGB 10.5 gm/dL (11.4-16.0); Lymphocytes # (A) 1.4 k/uL (1.0-4.8); Lymphocytes % (A) 12 %; MCH 29.9 pg (25.0-35.0); MCHC 31.5 g/dL (31.0-37.0); MCV 94.7 fL (80.0-100.0); Mean Platelet Volume 7.6; Monocytes # (A) 0.5 k/uL (0-1.0); Monocytes % (A) 4 %; Neutrophils # (A) 9.9 k/uL (1.3-7.7); Neutrophils % (A) 82 %; Platelet Count 350 k/uL (150-450); RBC 3.51 m/uL (3.80-5.40); RDW 13.9 % (11.5-15.5)
[2017-11-18 12:48] LABS: INR 1.1 (<1.2); Partial Thromboplastin Time 27.4 sec (22.0-30.0); Prothrombin Time 10.7 sec (9.0-12.0)
--- NOTE | 2017-11-18 14:01 | P.HPIM ---
History of Present Illness H&P Date: 11/18/17 This is an 82-year-old female patient of Dr. Chambers with a previous medical history significant for hypertension and hypertensive cardio vascular disease, diabetes mellitus type 2, hyperlipidemia, bilateral lower extremity edema with stasis dermatitis, obesity with possible obstructive sleep apnea, acute kidney injury, severe aortic valve stenosis. Patient underwent heart catheterization on November [address] Seth showing mild triple-vessel coronary artery disease with severe aortic stenosis and pulmonary hypertension and calcified coronary arteries. There is recommendations for evaluation of aortic valve replacement. BISI revealed mildly dilated left atrium with normal appearance of left atrial appendage, concentric left ventricular hypertrophy, severe aortic stenosis and mild aortic regurgitation, mild annulus calcification with mild mitral regurgitation, mild tricuspid regurgitation, patent foramen ovale with [id number] shunting, no pericardial effusion. Patient developed shortness of breath along with cough that was initially yellow and then yesterday it started coming green as well as wheezing at night. She denies any chest pain, syncope or lightheadedness. No abdominal pain, nausea vomiting or diarrhea. She denies any dysuria. Patient is noted to have an ecchymotic area to the left jewish which she does not know how this happened. came into [facility] emergency center for evaluation. WBC 12.2, hemoglobin 10.3, sodium 133, BUN 23 and creatinine 1.2, blood sugar 206, liver enzymes within normal limits, lactic acid 1.4 and influenza testing negative. Chest x-ray revealed COPD with bilateral infiltrate and small effusion and diffuse interstitial pattern. Differential includes CHF versus pneumonia. Repeat chest x-ray this morning shows minimal effusion on the left costophrenic angle. Cardiomegaly with mild pulmonary vascular prominence, probable pulmonary hypertension and COPD. Patient was started on Rocephin, azithromycin and admitted to the selective care unit. Patient subsequently developed atrial fibrillation with rapid ventricular response and started on heparin drip, Cardizem drip and Coumadin ordered by cardiology. Troponins are 0.036 and 0.040. Blood cultures were obtained in the emergency center and sputum culture is uncollected. Review of Systems All systems: negative Constitutional: Denies chills, Denies fever Eyes: denies blurred vision, denies pain Ears, nose, mouth and throat: Denies headache, Denies sore throat, Denies vertigo Cardiovascular: Reports shortness of breath, Denies chest pain, Denies leg edema , Denies lightheadedness, Denies syncope Respiratory: Reports cough, Reports cough with sputum, Reports dyspnea, Reports wheezing, Denies excessive sputum, Denies hemoptysis, Denies home oxygen Gastrointestinal: Denies abdominal pain, Denies diarrhea, Denies nausea, Denies vomiting Genitourinary: Denies dysuria, Denies hematuria Musculoskeletal: Denies myalgias Integumentary: Denies pruritus, Denies rash Neurological: Denies numbness, Denies weakness Psychiatric: Denies anxiety, Denies depression Endocrine: Denies fatigue, Denies weight change Past Medical History Past Medical History: Coronary Artery Disease (CAD), Diabetes Mellitus, GERD/ Reflux, Hyperlipidemia, Hypertension, Osteoarthritis (OA), Renal Disease Additional Past Medical History / Comment(s): USES A WALKER, LEG SWELLING, MURMUR, SINUS PROBLEMS, BENIGN POLYPS, INCONT OF URINE, PAST HX ANEMIA, "kidney function-3.5", severe aortic stenosis, patent foramen ovale History of Any Multi-Drug Resistant Organisms: None Reported Past Surgical History: Heart Catheterization Additional Past Surgical History / Comment(s): CATARACT SURGERY, COLONOSCOPY, bisi Past Anesthesia/Blood Transfusion Reactions: No Reported Reaction Smoking Status: Former smoker Additional Past Alcohol Use History / Comment(s): Patient smoked one to 2 packs per day for 40 years and quit in 1989. - Past Family History Mother Family Medical History: CVA/TIA, Diabetes Mellitus Father Family Medical History: Cancer, Coronary Artery Disease (CAD) Brother(s) Family Medical History: CVA/TIA, Diabetes Mellitus Sister(s) Family Medical History: Dementia Son(s) Family Medical History: No Reported History Daughter(s) Family Medical History: No Reported History Medications and Allergies Home Medications Medication Instructions Recorded Confirmed Type Lovastatin [Mevacor] 40 mg PO HS 06/23/14 11/17/17 History Potassium Chloride [K-Tab ER] 40 meq PO DAILY 06/23/14 11/17/17 History Nitroglycerin Sl Tabs [Nitrostat] 0.4 mg SUBLINGUAL Q5M PRN #25 tab 02/12/1605/27 Rx Clopidogrel [Plavix] 75 mg PO DAILY 03/18/16 11/17/17 History Furosemide [Lasix] 60 mg PO BID 03/18/16 11/17/17 History hydrALAZINE HCL [Apresoline] 50 mg PO TID 12/08/16 11/17/17 History Docusate [Colace] 100 mg PO DAILY PRN 02/17/17 11/17/17 History Magnesium Oxide 400 mg PO DAILY 02/17/17 11/17/17 History Allopurinol [Zyloprim] 100 mg PO BID 04/28/17 11/17/17 History Metoprolol Succinate [Toprol Xl] 50 mg PO DAILY 11/07/17 11/17/17 History Procrit (Unknown Dose) 1 dose INJ DIRECTED 11/07/17 11/17/17 History Vitamin E Acetate [Vitamin E] 200 unit PO DAILY 11/07/17 11/17/17 History Ferrous Sulfate [Feosol] 325 mg PO DAILY 11/17/17 11/17/17 History Fluticasone Nasal [place] [Flonase 1 spr EA NOSTRIL DAILY 11/17/17 11/17/17 History Nasal [place]] Hydrocortisone Cream 1 applic TOPICAL BID 11/17/17 11/17/17 History [Hydrocortisone 2.5% Cream] Sodium Bicarbonate Tab 325 mg PO TID 11/17/17 11/17/17 History Triamcinolone 0.025% Cream 1 applic TOPICAL BID PRN 11/17/17 11/17/17 History [Kenalog 0.025% Cream] glipiZIDE XL [Glucotrol XL] 10 mg PO AC-BID 11/17/17 11/17/17 History Allergies Allergy/AdvReac Type Severity Reaction Status Date / Time cephalexin monohydrate Allergy Rash/Hives Verified 11/17/17 14:27 [From Keflex] Physical Exam Vitals: Vital Signs Temp Pulse Pulse Resp BP BP Pulse Ox 11/18/17 07:53 97.6 F 144 H 18 110/56 93 L 11/18/17 04:00 96.8 F L 124 H 19 146/73 95 11/18/17 00:00 97.8 F 83 21 159/70 92 L 11/17/17 20:00 97.0 F L 67 19 134/58 96 11/17/17 17:56 96.8 F L 75 18 150/67 93 L 11/17/17 17:11 98.1 F 84 18 111/82 96 11/17/17 16:19 98.1 F 11/17/17 16:07 91 20 111/68 99 11/17/17 15:43 90 18 95/69 98 11/17/17 14:44 108 H 11/17/17 14:38 104 H 11/17/17 14:14 20 11/17/17 14:10 100.7 F H 98 24 136/83 93 L Intake and Output 11/17/17 11/18/17 11/18/17 22:59 06:59 14:59 Output Total 0 Balance 0 Output: Urine 0 Other: Voiding Method Incontinent Incontinent Incontinent # Voids 1 1 Weight 89.5 kg General appearance: mild distress, morbidly obese - EENT Eyes: Reports anicteric sclerae, Reports disc margins sharp, Reports PERRLA, Reports fundus normal, Reports normal apperance, Denies ptosis, Denies scleral icterus ENT: Reports hearing grossly normal, Reports NA/AT, Reports normal oropharynx, Denies thrush, Denies tonsillar exudates, Denies tonsillar swelling Ears: bilateral: normal - Neck Neck: Reports normal ROM, Denies lymphadenopathy, Denies rigidity, Denies stridor, Denies thyromegaly Carotids: bilateral: upstroke delayed Thyroid: bilateral: normal size - Respiratory Respiratory: bilateral: diminished, rales, rhonchi, wheezing, negative: prolonged expiration, prolonged inspiration - Cardiovascular Rhythm: regularly irregular Heart sounds: normal: S1, S2 Abnormal Heart Sounds: Reports systolic murmur (3/60 located in the right upper sternal border radiating to the base of the neck), Reports S3 Gallop, Denies rub , Denies click - Gastrointestinal General gastrointestinal: Reports normal bowel sounds, Reports soft, Denies scaphoid, Denies splenomegaly, Denies tenderness, Denies umbilical hernia, Denies ventral hernia - Integumentary Integumentary: Reports normal, Reports normal turgor, Reports rash (Left forearm macular papular rash almost reticular rash, bilateral lower extremity stasis dermatitis) - Neurologic Neurologic: CNII-XII intact - Musculoskeletal Musculoskeletal: Reports gait normal, Reports generalized weakness, Reports strength equal bilaterally - Psychiatric Psychiatric: Reports A&O x's 3, Reports appropriate affect, Reports intact judgment & insight Results CBC & Chem 7: 11/21/17 05:57 11/21/17 05:57 Labs: Abnormal Lab Results - Last 24 Hours (Table) 11/17/17 11/17/17 11/17/17 Range/Units 14:30 14:30 14:30 WBC 12.2 H (3.8-10.6) k/uL RBC 3.39 L (3.80-5.40) m/uL Hgb 10.3 L (11.4-16.0) gm/dL Hct 31.6 L (34.0-46.0) % Neutrophils # 10.6 H (1.3-7.7) k/uL Lymphocytes # 0.8 L (1.0-4.8) k/uL INR 1.2 H (<1.2) Sodium 133 L (137-145) mmol/L Carbon Dioxide 20 L (22-30) mmol/L BUN 23 H (7-17) mg/dL Creatinine 1.20 H (0.52-1.04) mg/dL Glucose 206 H (74-99) mg/dL POC Glucose (mg/dL) (75-99) mg/dL Hemoglobin A1c (4.0-6.0) % Troponin I (0.000-0.034) ng/mL Albumin 3.4 L (3.5-5.0) g/dL Urine Protein (Negative) Ur Leukocyte Esterase (Negative) Urine WBC (0-5) /hpf Amorphous Sediment (None) /hpf Urine Bacteria (None) /hpf 11/17/17 11/17/17 11/17/17 Range/Units 14:30 14:30 15:06 WBC (3.8-10.6) k/uL RBC (3.80-5.40) m/uL Hgb (11.4-16.0) gm/dL Hct (34.0-46.0) % Neutrophils # (1.3-7.7) k/uL Lymphocytes # (1.0-4.8) k/uL INR (<1.2) Sodium (137-145) mmol/L Carbon Dioxide (22-30) mmol/L BUN (7-17) mg/dL Creatinine (0.52-1.04) mg/dL Glucose (74-99) mg/dL POC Glucose (mg/dL) (75-99) mg/dL Hemoglobin A1c 7.6 H (4.0-6.0) % Troponin I 0.036 H* (0.000-0.034) ng/mL Albumin (3.5-5.0) g/dL Urine Protein 2+ H (Negative) Ur Leukocyte Esterase Trace H (Negative) Urine WBC 14 H (0-5) /hpf Amorphous Sediment Occasional H (None) /hpf Urine Bacteria Many H (None) /hpf 11/17/17 11/17/17 11/18/17 Range/Units 21:30 23:39 05:57 WBC (3.8-10.6) k/uL RBC (3.80-5.40) m/uL Hgb (11.4-16.0) gm/dL Hct (34.0-46.0) % Neutrophils # (1.3-7.7) k/uL Lymphocytes # (1.0-4.8) k/uL INR (<1.2) Sodium (137-145) mmol/L Carbon Dioxide (22-30) mmol/L BUN (7-17) mg/dL Creatinine (0.52-1.04) mg/dL Glucose (74-99) mg/dL POC Glucose (mg/dL) 199 H 145 H (75-99) mg/dL Hemoglobin A1c (4.0-6.0) % Troponin I 0.040 H* (0.000-0.034) ng/mL Albumin (3.5-5.0) g/dL Urine Protein (Negative) Ur Leukocyte Esterase (Negative) Urine WBC (0-5) /hpf Amorphous Sediment (None) /hpf Urine Bacteria (None) /hpf Microbiology - Last 24 Hours (Table) 11/17/17 15:06 Urine Culture - Preliminary Urine,Voided Thrombosis Risk Factor Assmnt - DVT/VTE Prophylaxis DVT/VTE Prophylaxis: Pharmacologic Prophylaxis ordered - Choose All That Apply Any of the Below Risk Factors Present?: Yes Each Factor Represents 1 point: Obesity (BMI >25), Serious lung disease incl. pneumonia (< 1month), Swollen legs (current) Other Risk Factors: Yes Each Risk Factor Represents 3 Points: Age 75 years or older Other congenital or acquired thrombophilia - If yes, enter type in comment: No Thrombosis Risk Factor Assessment Total Risk Factor Score: 6 Thrombosis Risk Factor Assessment Level: High Risk Assessment and Plan Plan: 1. Shortness of breath and cough with green sputum production secondary to possible pneumonia. Patient started on ceftriaxone and azithromycin. 2. New onset paroxysmal atrial fibrillation with episodes of rapid ventricular response. Cardiology consult is appreciated. Patient was started on heparin drip, Cardizem drip and Coumadin. Plavix was discontinued. Monitor PT and INR. 3. Severe aortic stenosis and patent foramen ovale evaluated on November 16 as an outpatient with Dr. Seth. Patient have evaluation for valve replacement. 4. Chronic diastolic heart failure. Continue metoprolol 50 mg daily, Lasix 60 mg twice daily and potassium. Previous echocardiogram showed ejection fraction 50-55% with severe aortic valve stenosis. Repeat echocardiogram has been ordered. 5. Chronic kidney disease stage III. Avoid nephrotoxic agents and hypotension. Continue sodium bicarbonate 325 mg 3 times daily. Patient is continued on Lasix 60 mg twice daily. 6. Mild coronary artery disease status post left heart catheterization on November 16. Continue aspirin, Plavix was discontinued, continue metoprolol and statin. 7. Hyperlipidemia. Continue lovastatin 40 mg orally once every day. 8. Hypertension and hypertensive cardiovascular disease. Continue metoprolol, hydralazine 50 mg 3 times daily the. 9. Chronic stasis dermatitis, stable. 10. Obesity with possible obstructive sleep apnea. Patient will need to go for polysomnogram as an outpatient. 11. DVT prophylaxis. Patient was on heparin drip. 12. GI prophylaxis. Continue pepcid. Patient will be admitted to the hospital for a minimum of 2 night stay. Discharge plan: Most likely return home. PT will be added. Impression and plan of care have been directed as dictated by the signing physician. Rosemarie Suarez nurse practitioner acting as scribe for signing physician.
[2017-11-18] MEDS: AZITHROMYCIN 500 MG TAB PO SCH (15:37)
[2017-11-18] MEDS: ACETAMINOPHEN TAB 500 MG TAB PO PRN (15:38)
[2017-11-18 17:11] LABS: Glucose,Whole Blood 176 mg/dL (75-99)
[2017-11-18] MEDS: HEPARIN SODIUM,PORCINE 5,000 UNIT/ML 1 ML VIAL IV PRN ×2 (17:27→22:25)
[2017-11-18] MEDS ORDERED: WARFARIN 5 MG TAB PO ONE (18:00)
[2017-11-18 20:42] LABS: Glucose,Whole Blood 208 mg/dL (75-99)
[2017-11-18] MEDS: ATORVASTATIN 10 MG TAB PO SCH (20:44)
[2017-11-19] MEDS: DILTIAZEM 125 MG in SODIUM CHLORIDE 0.9% 100 ML IV SCH (00:39)
[2017-11-19 03:33] LABS: Basophils % (A) 1 %; Eosinophils # (A) 0.4 k/uL (0-0.7); Eosinophils % (A) 4 %; HCT 30.7 % (34.0-46.0); HGB 9.8 gm/dL (11.4-16.0); Lymphocytes # (A) 1.8 k/uL (1.0-4.8); Lymphocytes % (A) 21 %; MCH 30.3 pg (25.0-35.0); MCHC 31.9 g/dL (31.0-37.0); Mean Platelet Volume 7.5; Monocytes # (A) 0.4 k/uL (0-1.0); Monocytes % (A) 4 %; Neutrophils # (A) 5.9 k/uL (1.3-7.7); Neutrophils % (A) 68 %; Platelet Count 366 k/uL (150-450); RBC 3.23 m/uL (3.80-5.40); RDW 14.1 % (11.5-15.5); WBC 8.6 k/uL (3.8-10.6)
[2017-11-19 03:52] LABS: Calcium 8.7 mg/dL (8.4-10.2); Potassium 4.2 mmol/L (3.5-5.1)
[2017-11-19 03:56] LABS: INR 1.1 (<1.2); Partial Thromboplastin Time 42.1 sec (22.0-30.0); Prothrombin Time 10.6 sec (9.0-12.0)
[2017-11-19 05:56] LABS: Glucose,Whole Blood 226 mg/dL (75-99)
[2017-11-19] MEDS: INSULIN ASPART 100 UNIT/ML 1 ML 10 ML VIAL SQ SCH ×4 (06:43→21:24)
[2017-11-19] MEDS: glipiZIDE 5 MG TAB PO SCH ×2 (06:43→17:17)
[2017-11-19] MEDS: FERROUS SULFATE 325 MG TAB PO SCH ×2 (08:10→08:16)
[2017-11-19] MEDS: FAMOTIDINE 20 MG TAB PO SCH (08:10)
[2017-11-19] MEDS: ALLOPURINOL 100 MG TAB PO SCH ×2 (08:10→20:23)
[2017-11-19] MEDS: MAGNESIUM OXIDE 400 MG TAB PO SCH (08:11)
[2017-11-19] MEDS: FUROSEMIDE 20 MG TAB PO SCH ×2 (08:11→15:29)
[2017-11-19] MEDS: hydrALAZINE HCL 50 MG TAB PO SCH ×3 (08:11→21:23)
[2017-11-19] MEDS: METOPROLOL SUCCINATE (ER) 50 MG TAB.ER.24H PO SCH (08:12)
[2017-11-19] MEDS: SODIUM BICARBONATE TAB 650 MG TAB PO SCH ×3 (08:12→21:23)
[2017-11-19] MEDS: POTASSIUM CHLORIDE ER 20 MEQ TAB.ER PO SCH (08:12)
[2017-11-19] MEDS: VITAMIN E (DL,TOCOPHERYL ACET) 400 UNIT CAP PO SCH (08:13)
[2017-11-19] MEDS: HEPARIN SOD,PORK IN 0.45% NACL 25,000 UNIT in 0.45% NACL 1 500ML.BAG IV SCH (08:29)
[2017-11-19 11:31] LABS: Glucose,Whole Blood 186 mg/dL (75-99)
[2017-11-19] MEDS: cefTRIAXone IN SWFI 1,000 MG/10 ML SYRINGE IVP SCH (12:02)
--- NOTE | 2017-11-19 14:03 | P.PN ---
Subjective Progress Note Date: 11/19/17 This is a pleasant 82-year-old female patient of Dr. Seth. She has history of diabetes, hypertension, dyslipidemia, severe aortic stenosis, recent cardiac catheterization that showed mild triple-vessel CAD and recent MIKEY that confirmed severe AF for which she was recommended further evaluation for replacement. Presented to the emergency department with complaints of worsening cough with yellow and green sputum as well as worsening shortness of breath. She was also found to have episodes of paroxysmal atrial fibrillation with rapid ventricular response which is new for her. Chest x-ray on admission showed COPD with bilateral infiltrate and small effusion, diffuse interstitial pattern, differential diagnosis would include CHF versus pneumonia. Laboratory values showed hemoglobin of 10.3 which is stable, white count 12.2, BUN of 23 and creatinine of 1.2 and troponin of 0.036 and 0.040. She remains on IV heparin and was started on Coumadin yesterday. INR today is 1.1. Upon examination, patient is sitting up in a chair. She denies complaints of chest discomfort or palpitations. She feels quite a bit better today.. She does have stable lower extremity edema and dyspnea on exertion which is also stable. Objective - Vital Signs Vital signs: Vital Signs Temp 98 F 11/19/17 11:22 Pulse 140 H 11/19/17 11:22 Resp 18 11/19/17 11:22 BP 126/72 11/19/17 11:22 Pulse Ox 95 11/19/17 11:22 Intake & Output 11/18/17 11/19/17 11/19/17 18:59 06:59 18:59 Intake Total 418.468 593.578 434.357 Output Total 300 Balance 418.468 293.578 434.357 Weight 90.9 kg Intake: Intake, IV Titration 118.468 393.578 194.357 Amount Diltiazem 125 mg In 97.75 44.75 Sodium Chloride 0.9% 100 ml @ 5 MG/HR 5 mls/hr IV .Q24H [facility] Rx#:[id number] Heparin Sod,Pork in 0.45% 118.468 295.828 149.607 NaCl 25,000 unit In 0.45 % NaCl 1 500ml.bag @ 11 UNITS/KG/HR 19.69 mls/hr IV .Q24H [facility] Rx#: [id number] Oral 300 200 240 Output: Urine 300 Other: Voiding Method Toilet Toilet Toilet Incontinent Incontinent Incontinent # Voids 1 1 1 # Bowel Movements 1 - Exam PHYSICAL EXAMINATION: HEENT: Head is atraumatic, normocephalic. Pupils equal, round. Neck is supple. There is no elevated jugular venous pressure. HEART EXAMINATION: Heart sounds irregularly irregular, S1 and S2 with a systolic ejection murmur. CHEST EXAMINATION: Lungs revealed improved air exchange. No chest wall tenderness is noted on palpation or with deep breathing. ABDOMEN: Soft, nontender. Bowel sounds are heard. No organomegaly noted. EXTREMITIES: 2+ peripheral pulses with evidence of mild peripheral edema and no calf tenderness noted. NEUROLOGIC patient is awake, alert and oriented x3. - Labs CBC & Chem 7: 11/19/17 03:15 11/19/17 03:15 Labs: Abnormal Lab Results - Last 24 Hours (Table) 11/18/17 11/18/17 11/18/17 Range/Units 16:37 17:09 20:40 RBC (3.80-5.40) m/uL Hgb (11.4-16.0) gm/dL Hct (34.0-46.0) % APTT 37.1 H (22.0-30.0) sec Sodium (137-145) mmol/L Carbon Dioxide (22-30) mmol/L BUN (7-17) mg/dL Creatinine (0.52-1.04) mg/dL Glucose (74-99) mg/dL POC Glucose (mg/dL) 176 H 208 H (75-99) mg/dL 11/18/17 11/19/17 11/19/17 Range/Units 21:07 03:15 03:15 RBC 3.23 L (3.80-5.40) m/uL Hgb 9.8 L (11.4-16.0) gm/dL Hct 30.7 L (34.0-46.0) % APTT 42.9 H (22.0-30.0) sec Sodium 134 L (137-145) mmol/L Carbon Dioxide 20 L (22-30) mmol/L BUN 37 H (7-17) mg/dL Creatinine 1.50 H (0.52-1.04) mg/dL Glucose 267 H (74-99) mg/dL POC Glucose (mg/dL) (75-99) mg/dL 11/19/17 11/19/17 11/19/17 Range/Units 03:15 05:55 09:56 RBC (3.80-5.40) m/uL Hgb (11.4-16.0) gm/dL Hct (34.0-46.0) % APTT 42.1 H 32.2 H (22.0-30.0) sec Sodium (137-145) mmol/L Carbon Dioxide (22-30) mmol/L BUN (7-17) mg/dL Creatinine (0.52-1.04) mg/dL Glucose (74-99) mg/dL POC Glucose (mg/dL) 226 H (75-99) mg/dL 11/19/17 Range/Units 11:29 RBC (3.80-5.40) m/uL Hgb (11.4-16.0) gm/dL Hct (34.0-46.0) % APTT (22.0-30.0) sec Sodium (137-145) mmol/L Carbon Dioxide (22-30) mmol/L BUN (7-17) mg/dL Creatinine (0.52-1.04) mg/dL Glucose (74-99) mg/dL POC Glucose (mg/dL) 186 H (75-99) mg/dL Microbiology - Last 24 Hours (Table) 11/18/17 19:41 Gram Stain - Preliminary Sputum Sputum Culture - Preliminary 11/17/17 15:06 Urine Culture - Preliminary Urine,Voided Group D Enterococcus 11/17/17 15:20 Blood Culture - Preliminary Blood No Growth after 24 hours 11/17/17 14:30 Blood Culture - Preliminary Blood No Growth after 24 hours Assessment and Plan Assessment: #1 possible pneumonia with symptoms of shortness of breath and productive cough with yellow-green sputum. #2 severe aortic stenosis #3 pulmonary hypertension #4 mild triple-vessel CAD #5 new-onset paroxysmal atrial fibrillation Plan: From cardiology's perspective, we will continue IV heparin at this time. We will give Coumadin 5 mg today. Will monitor INR and dose Coumadin accordingly. Further recommendations to follow. CORPORATE LEGAL SECRETARY note has been reviewed, I agree with a documented findings and plan of care. Patient was seen and examined.
[2017-11-19] MEDS ORDERED: METOPROLOL SUCCINATE (ER) 50 MG TAB.ER.24H PO STA (14:15)
[2017-11-19] MEDS: TRIAMCINOLONE 0.1% CREAM 80 GM TUBE TOPICAL PRN (14:50)
--- NOTE | 2017-11-19 14:56 | P.PN ---
Subjective Progress Note Date: 11/19/17 This is an 82-year-old female patient of Dr. Chambers with a previous medical history significant for hypertension and hypertensive cardio vascular disease, diabetes mellitus type 2, hyperlipidemia, bilateral lower extremity edema with stasis dermatitis, obesity with possible obstructive sleep apnea, acute kidney injury, severe aortic valve stenosis. Patient underwent heart catheterization on November [address] Seth showing mild triple-vessel coronary artery disease with severe aortic stenosis and pulmonary hypertension and calcified coronary arteries. There is recommendations for evaluation of aortic valve replacement. MIKEY revealed mildly dilated left atrium with normal appearance of left atrial appendage, concentric left ventricular hypertrophy, severe aortic stenosis and mild aortic regurgitation, mild annulus calcification with mild mitral regurgitation, mild tricuspid regurgitation, patent foramen ovale with [id number]-ciaor shunting, no pericardial effusion. Patient developed shortness of breath along with cough that was initially yellow and then yesterday it started coming green as well as wheezing at night. She denies any chest pain, syncope or lightheadedness. No abdominal pain, nausea vomiting or diarrhea. She denies any dysuria. Patient is noted to have an ecchymotic area to the left samaritan which she does not know how this happened. came into [facility] emergency center for evaluation. WBC 12.2, hemoglobin 10.3, sodium 133, BUN 23 and creatinine 1.2, blood sugar 206, liver enzymes within normal limits, lactic acid 1.4 and influenza testing negative. Chest x-ray revealed COPD with bilateral infiltrate and small effusion and diffuse interstitial pattern. Differential includes CHF versus pneumonia. Repeat chest x-ray this morning shows minimal effusion on the left costophrenic angle. Cardiomegaly with mild pulmonary vascular prominence, probable pulmonary hypertension and COPD. Patient was started on Rocephin, azithromycin and admitted to the selective care unit. Patient subsequently developed atrial fibrillation with rapid ventricular response and started on heparin drip, Cardizem drip and Coumadin ordered by cardiology. Troponins are 0.036 and 0.040. Blood cultures were obtained in the emergency center and sputum culture is uncollected. 11/19: patient is sitting up in chair continues to be dyspneic with telemetry showing Afib with RVR and I asked the nurse to increase cardizem drip to 10 mg/h , will continue with current heparn drip and will follow. Objective - Vital Signs Vital signs: Vital Signs Temp 98.4 F 11/19/17 04:00 Pulse 140 H 11/19/17 04:00 Resp 17 11/19/17 04:00 BP 130/58 11/19/17 04:00 Pulse Ox 91 L 11/19/17 04:00 Intake & Output 11/18/17 11/19/17 11/19/17 18:59 06:59 18:59 Intake Total 418.468 593.578 Output Total 300 Balance 418.468 293.578 Weight 90.9 kg Intake: Intake, IV Titration 118.468 393.578 Amount Diltiazem 125 mg In 97.75 Sodium Chloride 0.9% 100 ml @ 5 MG/HR 5 mls/hr IV .Q24H [facility] Rx#:[id number] Heparin Sod,Pork in 0.45% 118.468 295.828 NaCl 25,000 unit In 0.45 % NaCl 1 500ml.bag @ 11 UNITS/KG/HR 19.69 mls/hr IV .Q24H [facility] Rx#: [id number] Oral 300 200 Output: Urine 300 Other: Voiding Method Toilet Toilet Incontinent Incontinent # Voids 1 1 1 # Bowel Movements 1 - Exam General appearance: mild distress, morbidly obese - EENT Eyes: Reports anicteric sclerae, Reports disc margins sharp, Reports PERRLA, Reports fundus normal, Reports normal apperance, Denies ptosis, Denies scleral icterus ENT: Reports hearing grossly normal, Reports NA/AT, Reports normal oropharynx, Denies thrush, Denies tonsillar exudates, Denies tonsillar swelling Ears: bilateral: normal - Neck Neck: Reports normal ROM, Denies lymphadenopathy, Denies rigidity, Denies stridor, Denies thyromegaly Carotids: bilateral: upstroke delayed Thyroid: bilateral: normal size - Respiratory Respiratory: bilateral: diminished, rales, rhonchi, wheezing, negative: prolonged expiration, prolonged inspiration - Cardiovascular Rhythm: regularly irregular Heart sounds: normal: S1, S2 Abnormal Heart Sounds: Reports systolic murmur (3/60 located in the right upper sternal border radiating to the base of the neck), Reports S3 Gallop, Denies rub , Denies click - Gastrointestinal General gastrointestinal: Reports normal bowel sounds, Reports soft, Denies scaphoid, Denies splenomegaly, Denies tenderness, Denies umbilical hernia, Denies ventral hernia - Integumentary Integumentary: Reports normal, Reports normal turgor, Reports rash (Left forearm macular papular rash almost reticular rash, bilateral lower extremity stasis dermatitis) - Neurologic Neurologic: CNII-XII intact - Musculoskeletal Musculoskeletal: Reports gait normal, Reports generalized weakness, Reports strength equal bilaterally - Psychiatric Psychiatric: Reports A&O x's 3, Reports appropriate affect, Reports intact judgment & insight - Labs CBC & Chem 7: 11/19/17 03:15 11/19/17 03:15 Labs: Abnormal Lab Results - Last 24 Hours (Table) 11/18/17 11/18/17 11/18/17 Range/Units 11:23 11:39 16:37 WBC 12.0 H (3.8-10.6) k/uL RBC 3.51 L (3.80-5.40) m/uL Hgb 10.5 L (11.4-16.0) gm/dL Hct 33.3 L (34.0-46.0) % Neutrophils # 9.9 H (1.3-7.7) k/uL APTT 37.1 H (22.0-30.0) sec Sodium (137-145) mmol/L Carbon Dioxide (22-30) mmol/L BUN (7-17) mg/dL Creatinine (0.52-1.04) mg/dL Glucose (74-99) mg/dL POC Glucose (mg/dL) 290 H (75-99) mg/dL 11/18/17 11/18/17 11/18/17 Range/Units 17:09 20:40 21:07 WBC (3.8-10.6) k/uL RBC (3.80-5.40) m/uL Hgb (11.4-16.0) gm/dL Hct (34.0-46.0) % Neutrophils # (1.3-7.7) k/uL APTT 42.9 H (22.0-30.0) sec Sodium (137-145) mmol/L Carbon Dioxide (22-30) mmol/L BUN (7-17) mg/dL Creatinine (0.52-1.04) mg/dL Glucose (74-99) mg/dL POC Glucose (mg/dL) 176 H 208 H (75-99) mg/dL 11/19/17 11/19/17 11/19/17 Range/Units 03:15 03:15 03:15 WBC (3.8-10.6) k/uL RBC 3.23 L (3.80-5.40) m/uL Hgb 9.8 L (11.4-16.0) gm/dL Hct 30.7 L (34.0-46.0) % Neutrophils # (1.3-7.7) k/uL APTT 42.1 H (22.0-30.0) sec Sodium 134 L (137-145) mmol/L Carbon Dioxide 20 L (22-30) mmol/L BUN 37 H (7-17) mg/dL Creatinine 1.50 H (0.52-1.04) mg/dL Glucose 267 H (74-99) mg/dL POC Glucose (mg/dL) (75-99) mg/dL 11/19/17 Range/Units 05:55 WBC (3.8-10.6) k/uL RBC (3.80-5.40) m/uL Hgb (11.4-16.0) gm/dL Hct (34.0-46.0) % Neutrophils # (1.3-7.7) k/uL APTT (22.0-30.0) sec Sodium (137-145) mmol/L Carbon Dioxide (22-30) mmol/L BUN (7-17) mg/dL Creatinine (0.52-1.04) mg/dL Glucose (74-99) mg/dL POC Glucose (mg/dL) 226 H (75-99) mg/dL Microbiology - Last 24 Hours (Table) 11/18/17 19:41 Gram Stain - Preliminary Sputum Sputum Culture - Preliminary 11/17/17 15:06 Urine Culture - Preliminary Urine,Voided Group D Enterococcus 11/17/17 15:20 Blood Culture - Preliminary Blood No Growth after 24 hours 11/17/17 14:30 Blood Culture - Preliminary Blood No Growth after 24 hours Assessment and Plan Plan: Assessment and Plan Plan: 1. Possible community acquired pneumonia. will continue with O2 support , Rocephin and Zithromax. 2. New onset atrial fibrillation with episodes of rapid ventricular response. Cardiology consult is appreciated. Patient was started on heparin drip, Cardizem drip and Coumadin. Plavix was discontinued. 3. Severe aortic stenosis and patent foramen ovale evaluated on November 16 as an outpatient with Dr. Seth. Patient have evaluation for valve replacement. 4. Chronic diastolic heart failure. Continue metoprolol 50 mg daily, Lasix 60 mg twice daily and potassium. Previous echocardiogram showed ejection fraction 50-55% with severe aortic valve stenosis. Repeat echocardiogram has been ordered. 5. Chronic kidney disease stage III. Avoid nephrotoxic agents and hypotension. Continue sodium bicarbonate 325 mg 3 times daily. Patient is continued on Lasix 60 mg twice daily. 6. Mild coronary artery disease status post left heart catheterization on November 16. Continue aspirin, Plavix was discontinued, continue metoprolol and statin. 7. Hyperlipidemia. Continue lovastatin 40 mg orally once every day. 8. Hypertension and hypertensive cardiovascular disease. Continue metoprolol, hydralazine 50 mg 3 times daily the. 9. Chronic stasis dermatitis, stable. 10. Obesity with possible obstructive sleep apnea. Patient will need to go for polysomnogram as an outpatient. 11. DVT prophylaxis. Patient was on heparin drip. 12. GI prophylaxis. Continue pepcid. 13. Plan for PT/OT and hopefully home with PT.
[2017-11-19] MEDS: AZITHROMYCIN 500 MG TAB PO SCH (15:28)
[2017-11-19 17:03] LABS: Glucose,Whole Blood 249 mg/dL (75-99)
[2017-11-19] MEDS ORDERED: WARFARIN 5 MG TAB PO ONE (18:00)
[2017-11-19] MEDS: ATORVASTATIN 10 MG TAB PO SCH (20:22)
[2017-11-19 20:50] LABS: Glucose,Whole Blood 145 mg/dL (75-99)
[2017-11-20] MEDS: DILTIAZEM 125 MG in SODIUM CHLORIDE 0.9% 100 ML IV SCH ×2 (05:37→13:09)
[2017-11-20 06:05] LABS: Glucose,Whole Blood 193 mg/dL (75-99)
[2017-11-20 06:19] LABS: Basophils # (A) 0.1 k/uL (0-0.2); Basophils % (A) 1 %; Eosinophils # (A) 0.4 k/uL (0-0.7); Eosinophils % (A) 5 %; HCT 30.6 % (34.0-46.0); HGB 9.4 gm/dL (11.4-16.0); Hypochromasia Slight; Lymphocytes # (A) 1.7 k/uL (1.0-4.8); Lymphocytes % (A) 21 %; MCH 29.7 pg (25.0-35.0); MCHC 30.7 g/dL (31.0-37.0); MCV 96.6 fL (80.0-100.0); Mean Platelet Volume 7.6; Monocytes # (A) 0.5 k/uL (0-1.0); Monocytes % (A) 5 %; Neutrophils # (A) 5.6 k/uL (1.3-7.7); Neutrophils % (A) 67 %; Platelet Count 368 k/uL (150-450); RBC 3.17 m/uL (3.80-5.40); RDW 13.9 % (11.5-15.5); WBC 8.3 k/uL (3.8-10.6)
[2017-11-20 06:43] LABS: INR 1.1 (<1.2); Prothrombin Time 10.9 sec (9.0-12.0)
[2017-11-20] MEDS: glipiZIDE 5 MG TAB PO SCH ×2 (06:54→17:00)
[2017-11-20] MEDS: INSULIN ASPART 100 UNIT/ML 1 ML 10 ML VIAL SQ SCH ×4 (06:54→21:19)
[2017-11-20] MEDS: SODIUM BICARBONATE TAB 650 MG TAB PO SCH ×3 (07:34→21:19)
[2017-11-20] MEDS: FERROUS SULFATE 325 MG TAB PO SCH (07:34)
[2017-11-20] MEDS: ALLOPURINOL 100 MG TAB PO SCH ×2 (07:36→20:28)
[2017-11-20] MEDS: hydrALAZINE HCL 50 MG TAB PO SCH ×3 (07:36→21:18)
[2017-11-20] MEDS: FAMOTIDINE 20 MG TAB PO SCH (07:36)
[2017-11-20] MEDS: FUROSEMIDE 20 MG TAB PO SCH ×2 (07:36→15:56)
[2017-11-20] MEDS: MAGNESIUM OXIDE 400 MG TAB PO SCH (07:36)
[2017-11-20] MEDS: POTASSIUM CHLORIDE ER 20 MEQ TAB.ER PO SCH (07:37)
[2017-11-20] MEDS: VITAMIN E (DL,TOCOPHERYL ACET) 400 UNIT CAP PO SCH (07:37)
[2017-11-20] MEDS: METOPROLOL SUCCINATE (ER) 100 MG TAB.ER.24H PO SCH (07:37)
[2017-11-20] MEDS: TRIAMCINOLONE 0.1% CREAM 80 GM TUBE TOPICAL PRN (09:44)
[2017-11-20 10:05] LABS: INR 1.1 (<1.2)
[2017-11-20 10:18] LABS: Partial Thromboplastin Time 57.4 sec (22.0-30.0)
[2017-11-20] MEDS: HEPARIN SOD,PORK IN 0.45% NACL 25,000 UNIT in 0.45% NACL 1 500ML.BAG IV SCH ×2 (11:47→17:15)
[2017-11-20 12:06] LABS: Glucose,Whole Blood 211 mg/dL (75-99)
[2017-11-20] MEDS: cefTRIAXone IN SWFI 1,000 MG/10 ML SYRINGE IVP SCH (12:11)
--- NOTE | 2017-11-20 12:28 | P.PN ---
Subjective Progress Note Date: 11/20/17 This is an 82-year-old female patient of Dr. Chambers with a previous medical history significant for hypertension and hypertensive cardio vascular disease, diabetes mellitus type 2, hyperlipidemia, bilateral lower extremity edema with stasis dermatitis, obesity with possible obstructive sleep apnea, acute kidney injury, severe aortic valve stenosis. Patient underwent heart catheterization on November [address] Seth showing mild triple-vessel coronary artery disease with severe aortic stenosis and pulmonary hypertension and calcified coronary arteries. There is recommendations for evaluation of aortic valve replacement. MIKEY revealed mildly dilated left atrium with normal appearance of left atrial appendage, concentric left ventricular hypertrophy, severe aortic stenosis and mild aortic regurgitation, mild annulus calcification with mild mitral regurgitation, mild tricuspid regurgitation, patent foramen ovale with [id number] shunting, no pericardial effusion. Patient developed shortness of breath along with cough that was initially yellow and then yesterday it started coming green as well as wheezing at night. She denies any chest pain, syncope or lightheadedness. No abdominal pain, nausea vomiting or diarrhea. She denies any dysuria. Patient is noted to have an ecchymotic area to the left spiritism which she does not know how this happened. came into [facility] emergency center for evaluation. WBC 12.2, hemoglobin 10.3, sodium 133, BUN 23 and creatinine 1.2, blood sugar 206, liver enzymes within normal limits, lactic acid 1.4 and influenza testing negative. Chest x-ray revealed COPD with bilateral infiltrate and small effusion and diffuse interstitial pattern. Differential includes CHF versus pneumonia. Repeat chest x-ray this morning shows minimal effusion on the left costophrenic angle. Cardiomegaly with mild pulmonary vascular prominence, probable pulmonary hypertension and COPD. Patient was started on Rocephin, azithromycin and admitted to the selective care unit. Patient subsequently developed atrial fibrillation with rapid ventricular response and started on heparin drip, Cardizem drip and Coumadin ordered by cardiology. Troponins are 0.036 and 0.040. Blood cultures were obtained in the emergency center and sputum culture is uncollected. 11/19: patient is sitting up in chair continues to be dyspneic with telemetry showing Afib with RVR and I asked the nurse to increase cardizem drip to 10 mg/h , will continue with current heparn drip and will follow. 2/11: Patient's pain a lot better today, her heart rate is down to 94, she continues to be on Cardizem, she continues to be on metoprolol 100 mg orally once every day, she is feeling a bit better less coughing less short of breath she continues to have significant edema both lower extremities. Objective - Vital Signs Vital signs: Vital Signs Temp 97.7 F 11/20/17 07:32 Pulse 131 H 11/20/17 07:32 Resp 18 11/20/17 07:32 BP 135/64 11/20/17 07:32 Pulse Ox 94 L 11/20/17 07:32 Intake & Output 11/19/17 11/20/17 11/20/17 18:59 06:59 18:59 Intake Total 1169.592 581.112 Output Total 400 Balance 769.592 581.112 Weight 91.7 kg Intake: Intake, IV Titration 529.592 181.112 Amount Diltiazem 125 mg In 125.00 Sodium Chloride 0.9% 100 ml @ 5 MG/HR 5 mls/hr IV .Q24H [facility] Rx#:[id number] Heparin Sod,Pork in 0.45% 404.592 181.112 NaCl 25,000 unit In 0.45 % NaCl 1 500ml.bag @ 11 UNITS/KG/HR 19.69 mls/hr IV .Q24H [facility] Rx#: [id number] Oral 640 400 Output: Urine 400 Other: Voiding Method Toilet Toilet Incontinent # Voids 2 2 - Exam General appearance: mild distress, morbidly obese - EENT Eyes: Reports anicteric sclerae, Reports disc margins sharp, Reports PERRLA, Reports fundus normal, Reports normal apperance, Denies ptosis, Denies scleral icterus ENT: Reports hearing grossly normal, Reports NA/AT, Reports normal oropharynx, Denies thrush, Denies tonsillar exudates, Denies tonsillar swelling Ears: bilateral: normal - Neck Neck: Reports normal ROM, Denies lymphadenopathy, Denies rigidity, Denies stridor, Denies thyromegaly Carotids: bilateral: upstroke delayed Thyroid: bilateral: normal size - Respiratory Respiratory: bilateral: diminished, rales, rhonchi, wheezing, negative: prolonged expiration, prolonged inspiration - Cardiovascular Rhythm: regularly irregular Heart sounds: normal: S1, S2 Abnormal Heart Sounds: Reports systolic murmur (3/60 located in the right upper sternal border radiating to the base of the neck), Reports S3 Gallop, Denies rub , Denies click - Gastrointestinal General gastrointestinal: Reports normal bowel sounds, Reports soft, Denies scaphoid, Denies splenomegaly, Denies tenderness, Denies umbilical hernia, Denies ventral hernia - Integumentary Integumentary: Reports normal, Reports normal turgor, Reports rash (Left forearm macular papular rash almost reticular rash, bilateral lower extremity stasis dermatitis) - Neurologic Neurologic: CNII-XII intact - Musculoskeletal Musculoskeletal: Reports gait normal, Reports generalized weakness, Reports strength equal bilaterally - Psychiatric Psychiatric: Reports A&O x's 3, Reports appropriate affect, Reports intact judgment & insight - Labs CBC & Chem 7: 11/20/17 05:57 11/19/17 03:15 Labs: Abnormal Lab Results - Last 24 Hours (Table) 11/19/17 11/19/17 11/19/17 Range/Units 09:56 11:29 16:08 RBC (3.80-5.40) m/uL Hgb (11.4-16.0) gm/dL Hct (34.0-46.0) % MCHC (31.0-37.0) g/dL APTT 32.2 H 33.7 H (22.0-30.0) sec POC Glucose (mg/dL) 186 H (75-99) mg/dL 11/19/17 11/19/17 11/19/17 Range/Units 16:59 20:48 22:14 RBC (3.80-5.40) m/uL Hgb (11.4-16.0) gm/dL Hct (34.0-46.0) % MCHC (31.0-37.0) g/dL APTT 64.5 H (22.0-30.0) sec POC Glucose (mg/dL) 249 H 145 H (75-99) mg/dL 11/20/17 11/20/17 Range/Units 05:57 06:02 RBC 3.17 L (3.80-5.40) m/uL Hgb 9.4 L (11.4-16.0) gm/dL Hct 30.6 L (34.0-46.0) % MCHC 30.7 L (31.0-37.0) g/dL APTT (22.0-30.0) sec POC Glucose (mg/dL) 193 H (75-99) mg/dL Microbiology - Last 24 Hours (Table) 11/17/17 15:06 Urine Culture - Final Urine,Voided Enterococcus faecalis 11/17/17 15:20 Blood Culture - Preliminary Blood No Growth after 48 hours 11/17/17 14:30 Blood Culture - Preliminary Blood No Growth after 48 hours Assessment and Plan Plan: Assessment and Plan Plan: 1. Possible community acquired pneumonia. will continue with O2 support , Rocephin and Zithromax. 2. New onset atrial fibrillation with episodes of rapid ventricular response. Cardiology consult is appreciated. Patient was started on heparin drip, Cardizem drip and Coumadin. Continue patient on metoprolol 100 mg orally once every day. Continue Coumadin and monitor INR. 3. Severe aortic stenosis and patent foramen ovale evaluated on November 16 as an outpatient with Dr. Seth. Patient have evaluation for valve replacement. 4. Chronic diastolic heart failure. Continue metoprolol 50 mg daily, Lasix 60 mg twice daily and potassium. Previous echocardiogram showed ejection fraction 50-55% with severe aortic valve stenosis. Repeat echocardiogram has been ordered. 5. Chronic kidney disease stage III. Avoid nephrotoxic agents and hypotension. Continue sodium bicarbonate 325 mg 3 times daily. Patient is continued on Lasix 60 mg twice daily. 6. Mild coronary artery disease status post left heart catheterization on November 16. Continue aspirin, Plavix was discontinued, continue metoprolol and statin. 7. Hyperlipidemia. Continue lovastatin 40 mg orally once every day. 8. Hypertension and hypertensive cardiovascular disease. Continue metoprolol, hydralazine 50 mg 3 times daily the. 9. Chronic stasis dermatitis, stable. 10. Obesity with possible obstructive sleep apnea. Patient will need to go for polysomnogram as an outpatient. 11. DVT prophylaxis. Patient was on heparin drip. 12. GI prophylaxis. Continue pepcid. 13. Plan for PT/OT and hopefully home with PT.
--- NOTE | 2017-11-20 13:01 | P.PN ---
Subjective Progress Note Date: 11/20/17 Mrs. Fajardo is seen and examined today sitting up in the chair. She continues to be in atrial fibrillation with rapid ventricular response. Cardizem drip was increased this morning to 10 mcg. Heart rate has come down from 130s to low 100' s. She is also getting toprol 100 mg daily. Heparin is ongoing with INR today 1.1. She received coumadin 5 mg last night for her first dose. Hemoglobin 9.4 and platelets 368. She continues to complain of mild shortness of breath. Denies chest pain, palpitations, dizziness, nausea or vomiting. Has been working with physical therapy. Objective - Vital Signs Vital signs: Vital Signs Temp 97.2 F L 11/20/17 10:56 Pulse 92 11/20/17 11:37 Resp 18 11/20/17 11:37 BP 124/71 11/20/17 10:56 Pulse Ox 95 11/20/17 10:56 Intake & Output 11/19/17 11/20/17 11/20/17 18:59 06:59 18:59 Intake Total 1169.592 581.112 160 Output Total 400 Balance 769.592 581.112 160 Weight 91.7 kg Intake: Intake, IV Titration 529.592 181.112 Amount Diltiazem 125 mg In 125.00 Sodium Chloride 0.9% 100 ml @ 5 MG/HR 5 mls/hr IV .Q24H [facility] Rx#:[id number] Heparin Sod,Pork in 0.45% 404.592 181.112 NaCl 25,000 unit In 0.45 % NaCl 1 500ml.bag @ 11 UNITS/KG/HR 19.69 mls/hr IV .Q24H [facility] Rx#: [id number] Oral 640 400 160 Output: Urine 400 Other: Voiding Method Toilet Toilet Toilet # Voids 2 2 - Exam Blood pressure 124/71 heart rate 92 afebrile GENERAL: Well-appearing, well-nourished and in no acute distress. NECK: Supple without JVD or thyromegaly. LUNGS: Breath sounds clear to auscultation bilaterally. Respiration equal and unlabored. No wheezes, rales or rhonchi. HEART: Irregular rate and rhythm with systolic ejection murmur, no rubs or gallops. S1 and S2 heard. EXTREMITIES: Normal range of motion, chronic peripheral edema, non-pitting. No clubbing or cyanosis. Peripheral pulses intact. - Labs CBC & Chem 7: 11/20/17 05:57 11/19/17 03:15 Labs: Abnormal Lab Results - Last 24 Hours (Table) 11/19/17 11/19/17 11/19/17 Range/Units 16:08 16:59 20:48 RBC (3.80-5.40) m/uL Hgb (11.4-16.0) gm/dL Hct (34.0-46.0) % MCHC (31.0-37.0) g/dL APTT 33.7 H (22.0-30.0) sec POC Glucose (mg/dL) 249 H 145 H (75-99) mg/dL 11/19/17 11/20/17 11/20/17 Range/Units 22:14 05:57 06:02 RBC 3.17 L (3.80-5.40) m/uL Hgb 9.4 L (11.4-16.0) gm/dL Hct 30.6 L (34.0-46.0) % MCHC 30.7 L (31.0-37.0) g/dL APTT 64.5 H (22.0-30.0) sec POC Glucose (mg/dL) 193 H (75-99) mg/dL 11/20/17 11/20/17 Range/Units 09:35 11:54 RBC (3.80-5.40) m/uL Hgb (11.4-16.0) gm/dL Hct (34.0-46.0) % MCHC (31.0-37.0) g/dL APTT 57.4 H (22.0-30.0) sec POC Glucose (mg/dL) 211 H (75-99) mg/dL Microbiology - Last 24 Hours (Table) 11/17/17 15:06 Urine Culture - Final Urine,Voided Enterococcus faecalis 11/17/17 15:20 Blood Culture - Preliminary Blood No Growth after 48 hours 11/17/17 14:30 Blood Culture - Preliminary Blood No Growth after 48 hours Assessment and Plan Assessment: ASSESSMENT 1. Pneumonia, receiving IV antibiotics per primary medical team. 2. New onset atrial fibrillation with rapid ventricular response 3. Severe aortic stenosis 4. Pulmonary hypertension 5. Mild triple vessel disease PLAN Start oral cardizem 90 mg TID; continue with cardizem infusion until she has received 2 doses of oral cardizem. Should be at 2100 tonight. Continue heparin infusion, give coumadin 2.5 mg tonight and check coagulation panel tomorrow am. Further recommendations to follow. Nurse Practitioner note has been reviewed, I agree with a documented findings and plan of care. Patient was seen and examined.
[2017-11-20] MEDS: DILTIAZEM ORAL 30 MG TAB PO SCH ×2 (15:55→21:18)
[2017-11-20] MEDS: AZITHROMYCIN 500 MG TAB PO SCH (15:56)
[2017-11-20 17:17] LABS: Glucose,Whole Blood 136 mg/dL (75-99)
[2017-11-20] MEDS ORDERED: WARFARIN 2.5 MG TAB PO ONE (18:00)
[2017-11-20] MEDS: ATORVASTATIN 10 MG TAB PO SCH (20:28)
[2017-11-20 20:56] LABS: Glucose,Whole Blood 222 mg/dL (75-99)
[2017-11-21 05:49] LABS: Glucose,Whole Blood 228 mg/dL (75-99)
[2017-11-21 06:37] LABS: Basophils # (A) 0.1 k/uL (0-0.2); Basophils % (A) 1 %; Eosinophils # (A) 0.4 k/uL (0-0.7); Eosinophils % (A) 4 %; HCT 29.4 % (34.0-46.0); Hypochromasia Slight; Lymphocytes # (A) 2.1 k/uL (1.0-4.8); Lymphocytes % (A) 23 %; MCH 29.8 pg (25.0-35.0); MCHC 30.7 g/dL (31.0-37.0); MCV 97.1 fL (80.0-100.0); Mean Platelet Volume 7.6; Monocytes # (A) 0.5 k/uL (0-1.0); Monocytes % (A) 5 %; Neutrophils # (A) 5.9 k/uL (1.3-7.7); Neutrophils % (A) 65 %; Platelet Count 414 k/uL (150-450); RBC 3.03 m/uL (3.80-5.40); RDW 14.1 % (11.5-15.5)
[2017-11-21 06:42] LABS: INR 1.3 (<1.2); Partial Thromboplastin Time 91.6 sec (22.0-30.0); Prothrombin Time 12.2 sec (9.0-12.0)
[2017-11-21] MEDS: HEPARIN SOD,PORK IN 0.45% NACL 25,000 UNIT in 0.45% NACL 1 500ML.BAG IV SCH (07:00)
[2017-11-21] MEDS: INSULIN ASPART 100 UNIT/ML 1 ML 10 ML VIAL SQ SCH ×4 (07:01→21:21)
[2017-11-21] MEDS: glipiZIDE 5 MG TAB PO SCH ×2 (07:01→17:22)
[2017-11-21 07:23] LABS: Albumin 3.1 g/dL (3.5-5.0); Calcium 9.1 mg/dL (8.4-10.2); Magnesium 1.8 mg/dL (1.6-2.3); Potassium 4.4 mmol/L (3.5-5.1); Total Bilirubin 0.3 mg/dL (0.2-1.3); Total Protein 6.1 g/dL (6.3-8.2)
[2017-11-21] MEDS: ALLOPURINOL 100 MG TAB PO SCH ×2 (08:04→21:18)
[2017-11-21] MEDS: DILTIAZEM ORAL 30 MG TAB PO SCH ×3 (08:04→21:19)
[2017-11-21] MEDS: MAGNESIUM OXIDE 400 MG TAB PO SCH (08:04)
[2017-11-21] MEDS: FUROSEMIDE 20 MG TAB PO SCH (08:04)
[2017-11-21] MEDS: hydrALAZINE HCL 50 MG TAB PO SCH ×3 (08:04→21:18)
[2017-11-21] MEDS: VITAMIN E (DL,TOCOPHERYL ACET) 400 UNIT CAP PO SCH (08:04)
[2017-11-21] MEDS: FAMOTIDINE 20 MG TAB PO SCH (08:04)
[2017-11-21] MEDS: POTASSIUM CHLORIDE ER 20 MEQ TAB.ER PO SCH (08:04)
[2017-11-21] MEDS: FERROUS SULFATE 325 MG TAB PO SCH (08:05)
[2017-11-21] MEDS: METOPROLOL SUCCINATE (ER) 100 MG TAB.ER.24H PO SCH (08:05)
[2017-11-21] MEDS: SODIUM BICARBONATE TAB 650 MG TAB PO SCH ×3 (09:49→21:18)
[2017-11-21 11:45] LABS: Glucose,Whole Blood 207 mg/dL (75-99)
--- NOTE | 2017-11-21 12:14 | P.PN ---
Subjective Progress Note Date: 11/21/17 This is an 82-year-old female patient of Dr. Chambers with a previous medical history significant for hypertension and hypertensive cardio vascular disease, diabetes mellitus type 2, hyperlipidemia, bilateral lower extremity edema with stasis dermatitis, obesity with possible obstructive sleep apnea, acute kidney injury, severe aortic valve stenosis. Patient underwent heart catheterization on November [address] Seth showing mild triple-vessel coronary artery disease with severe aortic stenosis and pulmonary hypertension and calcified coronary arteries. There is recommendations for evaluation of aortic valve replacement. MIKEY revealed mildly dilated left atrium with normal appearance of left atrial appendage, concentric left ventricular hypertrophy, severe aortic stenosis and mild aortic regurgitation, mild annulus calcification with mild mitral regurgitation, mild tricuspid regurgitation, patent foramen ovale with [id number] shunting, no pericardial effusion. Patient developed shortness of breath along with cough that was initially yellow and then yesterday it started coming green as well as wheezing at night. She denies any chest pain, syncope or lightheadedness. No abdominal pain, nausea vomiting or diarrhea. She denies any dysuria. Patient is noted to have an ecchymotic area to the left synagogue which she does not know how this happened. came into [facility] emergency center for evaluation. WBC 12.2, hemoglobin 10.3, sodium 133, BUN 23 and creatinine 1.2, blood sugar 206, liver enzymes within normal limits, lactic acid 1.4 and influenza testing negative. Chest x-ray revealed COPD with bilateral infiltrate and small effusion and diffuse interstitial pattern. Differential includes CHF versus pneumonia. Repeat chest x-ray this morning shows minimal effusion on the left costophrenic angle. Cardiomegaly with mild pulmonary vascular prominence, probable pulmonary hypertension and COPD. Patient was started on Rocephin, azithromycin and admitted to the selective care unit. Patient subsequently developed atrial fibrillation with rapid ventricular response and started on heparin drip, Cardizem drip and Coumadin ordered by cardiology. Troponins are 0.036 and 0.040. Blood cultures were obtained in the emergency center and sputum culture is uncollected. 11/19: patient is sitting up in chair continues to be dyspneic with telemetry showing Afib with RVR and I asked the nurse to increase cardizem drip to 10 mg/h , will continue with current heparn drip and will follow. 2/11: Patient's pain a lot better today, her heart rate is down to 94, she continues to be on Cardizem, she continues to be on metoprolol 100 mg orally once every day, she is feeling a bit better less coughing less short of breath she continues to have significant edema both lower extremities. 11/21: INR is 1.3. She is currently on Cardizem 90 mg 3 times daily, metoprolol succinate 100 mg daily heparin drip, Coumadin 2.5 mg was given last evening and 7.5 mg will be ordered for tonight. 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 BUN is 45 and creatinine 1.64. Lasix decreased to 40 mg twice daily. Objective - Vital Signs Vital signs: Vital Signs Temp 97.1 F L 11/21/17 08:00 Pulse 113 H 11/21/17 08:00 Resp 18 11/21/17 08:00 BP 108/80 11/21/17 08:00 Pulse Ox 92 L 11/21/17 08:00 Intake & Output 11/20/17 11/21/17 11/21/17 18:59 06:59 18:59 Intake Total 1014.492 660 Output Total 350 1 Balance 664.492 659 Weight 91 kg Intake: IV 160 Heparin Sod,Pork in 0.45% 160 NaCl 25,000 unit In 0.45 % NaCl 1 500ml.bag @ 11 UNITS/KG/HR 19.69 mls/hr IV .Q24H [facility] Rx#: [id number] Intake, IV Titration 334.492 500 Amount Diltiazem 125 mg In 129.000 Sodium Chloride 0.9% 100 ml @ 5 MG/HR 5 mls/hr IV .Q24H [facility] Rx#:[id number] Heparin Sod,Pork in 0.45% 205.492 500 NaCl 25,000 unit In 0.45 % NaCl 1 500ml.bag @ 11 UNITS/KG/HR 19.69 mls/hr IV .Q24H [facility] Rx#: [id number] Oral 680 Output: Urine 350 Stool 1 Other: Voiding Method Toilet Toilet # Voids 1 2 - Exam General appearance: mild distress, morbidly obese - EENT Eyes: Reports anicteric sclerae, Reports disc margins sharp, Reports PERRLA, Reports fundus normal, Reports normal apperance, Denies ptosis, Denies scleral icterus ENT: Reports hearing grossly normal, Reports NA/AT, Reports normal oropharynx, Denies thrush, Denies tonsillar exudates, Denies tonsillar swelling Ears: bilateral: normal - Neck Neck: Reports normal ROM, Denies lymphadenopathy, Denies rigidity, Denies stridor, Denies thyromegaly Carotids: bilateral: upstroke delayed Thyroid: bilateral: normal size - Respiratory Respiratory: bilateral: diminished, rales, rhonchi, wheezing, negative: prolonged expiration, prolonged inspiration - Cardiovascular Rhythm: regularly irregular Heart sounds: normal: S1, S2 Abnormal Heart Sounds: Reports systolic murmur (3/60 located in the right upper sternal border radiating to the base of the neck), Reports S3 Gallop, Denies rub , Denies click - Gastrointestinal General gastrointestinal: Reports normal bowel sounds, Reports soft, Denies scaphoid, Denies splenomegaly, Denies tenderness, Denies umbilical hernia, Denies ventral hernia - Integumentary Integumentary: Reports normal, Reports normal turgor, Reports rash (Left forearm macular papular rash almost reticular rash, bilateral lower extremity stasis dermatitis) - Neurologic Neurologic: CNII-XII intact - Musculoskeletal Musculoskeletal: Reports gait normal, Reports generalized weakness, Reports strength equal bilaterally - Psychiatric Psychiatric: Reports A&O x's 3, Reports appropriate affect, Reports intact judgment & insight - Labs CBC & Chem 7: 11/21/17 05:57 11/21/17 05:57 Labs: Abnormal Lab Results - Last 24 Hours (Table) 11/20/17 11/20/17 11/20/17 Range/Units 09:35 11:54 16:38 RBC (3.80-5.40) m/uL Hgb (11.4-16.0) gm/dL Hct (34.0-46.0) % MCHC (31.0-37.0) g/dL PT (9.0-12.0) sec INR (<1.2) APTT 57.4 H (22.0-30.0) sec Sodium (137-145) mmol/L Carbon Dioxide (22-30) mmol/L BUN (7-17) mg/dL Creatinine (0.52-1.04) mg/dL Glucose (74-99) mg/dL POC Glucose (mg/dL) 211 H 136 H (75-99) mg/dL Total Protein (6.3-8.2) g/dL Albumin (3.5-5.0) g/dL 11/20/17 11/21/17 11/21/17 Range/Units 20:54 05:48 05:57 RBC 3.03 L (3.80-5.40) m/uL Hgb 9.0 L (11.4-16.0) gm/dL Hct 29.4 L (34.0-46.0) % MCHC 30.7 L (31.0-37.0) g/dL PT (9.0-12.0) sec INR (<1.2) APTT (22.0-30.0) sec Sodium (137-145) mmol/L Carbon Dioxide (22-30) mmol/L BUN (7-17) mg/dL Creatinine (0.52-1.04) mg/dL Glucose (74-99) mg/dL POC Glucose (mg/dL) 222 H 228 H (75-99) mg/dL Total Protein (6.3-8.2) g/dL Albumin (3.5-5.0) g/dL 11/21/17 11/21/17 Range/Units 05:57 05:57 RBC (3.80-5.40) m/uL Hgb (11.4-16.0) gm/dL Hct (34.0-46.0) % MCHC (31.0-37.0) g/dL PT 12.2 H (9.0-12.0) sec INR 1.3 H (<1.2) APTT 91.6 H (22.0-30.0) sec Sodium 135 L (137-145) mmol/L Carbon Dioxide 19 L (22-30) mmol/L BUN 45 H (7-17) mg/dL Creatinine 1.69 H (0.52-1.04) mg/dL Glucose 188 H (74-99) mg/dL POC Glucose (mg/dL) (75-99) mg/dL Total Protein 6.1 L (6.3-8.2) g/dL Albumin 3.1 L (3.5-5.0) g/dL Microbiology - Last 24 Hours (Table) 11/18/17 19:41 Gram Stain - Preliminary Sputum Sputum Culture - Preliminary 11/17/17 15:20 Blood Culture - Preliminary Blood No Growth after 72 hours 11/17/17 14:30 Blood Culture - Preliminary Blood No Growth after 72 hours Assessment and Plan Plan: 1. Shortness of breath and cough with green sputum production secondary to possible pneumonia. Patient started on ceftriaxone and azithromycin. 2. New onset paroxysmal atrial fibrillation with episodes of rapid ventricular response. Cardiology consult is appreciated. Patient was started on heparin drip, Cardizem drip and Coumadin. Plavix was discontinued. Monitor PT and INR. 3. Severe aortic stenosis and patent foramen ovale evaluated on November 16 as an outpatient with Dr. Seth. Patient to have evaluation for valve replacement. 4. Chronic diastolic heart failure. Continue metoprolol 50 mg daily, Lasix 60 mg twice daily and potassium. Previous echocardiogram showed ejection fraction 50-55% with severe aortic valve stenosis. Repeat echocardiogram has been ordered. 5. Acute kidney injury with chronic kidney disease stage III. Avoid nephrotoxic agents and hypotension. Continue sodium bicarbonate 325 mg 3 times daily. Patient is continued on Lasix decreased to 40 mg twice daily. 6. Mild coronary artery disease status post left heart catheterization on November 16. Continue aspirin, Plavix was discontinued, continue metoprolol and statin. 7. Hyperlipidemia. Continue lovastatin 40 mg orally once every day. 8. Hypertension and hypertensive cardiovascular disease. Continue metoprolol, hydralazine 50 mg 3 times daily the. 9. Chronic stasis dermatitis, stable. 10. Obesity with possible obstructive sleep apnea. Patient will need to go for polysomnogram as an outpatient. 11. DVT prophylaxis. Patient was on heparin drip. 12. GI prophylaxis. Continue pepcid. Patient will be admitted to the hospital for a minimum of 2 night stay. Discharge plan: home with [facility] Impression and plan of care have been directed as dictated by the signing physician. Rosemarie Suarez nurse practitioner acting as scribe for signing physician.
[2017-11-21] MEDS: cefTRIAXone IN SWFI 1,000 MG/10 ML SYRINGE IVP SCH (12:34)
--- NOTE | 2017-11-21 15:48 | P.PN ---
Subjective Progress Note Date: 11/21/17 Principal diagnosis: Shortness of breath This is a pleasant 82-year-old female patient of Dr. Seth. She has history of diabetes, hypertension, dyslipidemia, severe aortic stenosis, recent cardiac catheterization that showed mild triple-vessel CAD and recent MIKEY that confirmed severe for which she was recommended further evaluation for replacement. Presented to the emergency department with complaints of worsening cough with yellow and green sputum as well as worsening shortness of breath. She was also found to have episodes of paroxysmal atrial fibrillation with rapid ventricular response which is new for her. Chest x-ray on admission showed COPD with bilateral infiltrate and small effusion, diffuse interstitial pattern, differential diagnosis would include CHF versus pneumonia. Patient was seen and examined this morning, overall she states her breathing is significantly improved. Planning of possible discharge home in the morning. Dr. Bryan did discuss the patient with Dr. Seth, and also explained to the patient that we will make her a follow-up appointment with Dr. Seth in the office post discharge. Objective - Vital Signs Vital signs: Vital Signs Temp 96.7 F L 11/21/17 11:32 Pulse 110 H 11/21/17 11:32 Resp 18 11/21/17 11:32 BP 99/59 11/21/17 11:32 Pulse Ox 94 L 11/21/17 11:32 Intake & Output 11/20/17 11/21/17 11/21/17 18:59 06:59 18:59 Intake Total 1014.492 660 Output Total 350 1 Balance 664.492 659 Weight 91 kg Intake: IV 160 Heparin Sod,Pork in 0.45% 160 NaCl 25,000 unit In 0.45 % NaCl 1 500ml.bag @ 11 UNITS/KG/HR 19.69 mls/hr IV .Q24H [facility] Rx#: [id number] Intake, IV Titration 334.492 500 Amount Diltiazem 125 mg In 129.000 Sodium Chloride 0.9% 100 ml @ 5 MG/HR 5 mls/hr IV .Q24H [facility] Rx#:[id number] Heparin Sod,Pork in 0.45% 205.492 500 NaCl 25,000 unit In 0.45 % NaCl 1 500ml.bag @ 11 UNITS/KG/HR 19.69 mls/hr IV .Q24H [facility] Rx#: [id number] Oral 680 Output: Urine 350 Stool 1 Other: Voiding Method Toilet Toilet # Voids 1 2 2 - Exam PHYSICAL EXAMINATION: HEENT: Head is atraumatic, normocephalic. Pupils equal, round. Neck is supple. There is no elevated jugular venous pressure. HEART EXAMINATION: Heart sounds irregularly irregular, S1 and S2 with a systolic ejection murmur. CHEST EXAMINATION: Lungs revealed improved air exchange. No chest wall tenderness is noted on palpation or with deep breathing. ABDOMEN: Soft, nontender. Bowel sounds are heard. No organomegaly noted. EXTREMITIES: 2+ peripheral pulses with evidence of mild peripheral edema and no calf tenderness noted. NEUROLOGIC patient is awake, alert and oriented x3. - Labs CBC & Chem 7: 11/21/17 05:57 11/21/17 05:57 Labs: Abnormal Lab Results - Last 24 Hours (Table) 11/20/17 11/20/17 11/21/17 Range/Units 16:38 20:54 05:48 RBC (3.80-5.40) m/uL Hgb (11.4-16.0) gm/dL Hct (34.0-46.0) % MCHC (31.0-37.0) g/dL PT (9.0-12.0) sec INR (<1.2) APTT (22.0-30.0) sec Sodium (137-145) mmol/L Carbon Dioxide (22-30) mmol/L BUN (7-17) mg/dL Creatinine (0.52-1.04) mg/dL Glucose (74-99) mg/dL POC Glucose (mg/dL) 136 H 222 H 228 H (75-99) mg/dL Total Protein (6.3-8.2) g/dL Albumin (3.5-5.0) g/dL 11/21/17 11/21/17 11/21/17 Range/Units 05:57 05:57 05:57 RBC 3.03 L (3.80-5.40) m/uL Hgb 9.0 L (11.4-16.0) gm/dL Hct 29.4 L (34.0-46.0) % MCHC 30.7 L (31.0-37.0) g/dL PT 12.2 H (9.0-12.0) sec INR 1.3 H (<1.2) APTT 91.6 H (22.0-30.0) sec Sodium 135 L (137-145) mmol/L Carbon Dioxide 19 L (22-30) mmol/L BUN 45 H (7-17) mg/dL Creatinine 1.69 H (0.52-1.04) mg/dL Glucose 188 H (74-99) mg/dL POC Glucose (mg/dL) (75-99) mg/dL Total Protein 6.1 L (6.3-8.2) g/dL Albumin 3.1 L (3.5-5.0) g/dL 11/21/17 11/21/17 Range/Units 11:33 12:11 RBC (3.80-5.40) m/uL Hgb (11.4-16.0) gm/dL Hct (34.0-46.0) % MCHC (31.0-37.0) g/dL PT (9.0-12.0) sec INR (<1.2) APTT 69.1 H (22.0-30.0) sec Sodium (137-145) mmol/L Carbon Dioxide (22-30) mmol/L BUN (7-17) mg/dL Creatinine (0.52-1.04) mg/dL Glucose (74-99) mg/dL POC Glucose (mg/dL) 207 H (75-99) mg/dL Total Protein (6.3-8.2) g/dL Albumin (3.5-5.0) g/dL Microbiology - Last 24 Hours (Table) 11/18/17 19:41 Gram Stain - Preliminary Sputum Sputum Culture - Preliminary 11/17/17 15:20 Blood Culture - Preliminary Blood No Growth after 72 hours 11/17/17 14:30 Blood Culture - Preliminary Blood No Growth after 72 hours Assessment and Plan Plan: Assessment: #1 possible pneumonia with symptoms of shortness of breath and productive cough with yellow-green sputum. #2 severe aortic stenosis #3 pulmonary hypertension #4 mild triple-vessel CAD #5 new-onset paroxysmal atrial fibrillation From cardiology's perspective, INR today is 1.3. Coumadin has been ordered. We will continue other medications. DNP note has been reviewed, I agree with a documented findings and plan of care. Patient was seen and examined.
[2017-11-21] MEDS: AZITHROMYCIN 500 MG TAB PO SCH (16:01)
[2017-11-21] MEDS: FUROSEMIDE 40 MG TAB PO SCH (16:04)
[2017-11-21 17:05] LABS: Glucose,Whole Blood 213 mg/dL (75-99)
[2017-11-21] MEDS ORDERED: WARFARIN 7.5 MG TAB PO ONE (18:00)
[2017-11-21] MEDS ORDERED: WARFARIN 5 MG TAB PO SCH (18:00)
[2017-11-21 20:52] LABS: Glucose,Whole Blood 195 mg/dL (75-99)
[2017-11-21] MEDS: ATORVASTATIN 10 MG TAB PO SCH (21:19)
[2017-11-22] MEDS: ACETAMINOPHEN TAB 500 MG TAB PO PRN (01:14)
[2017-11-22] MEDS: HEPARIN SOD,PORK IN 0.45% NACL 25,000 UNIT in 0.45% NACL 1 500ML.BAG IV SCH (04:02)
[2017-11-22 06:36] LABS: Glucose,Whole Blood 176 mg/dL (75-99)
[2017-11-22] MEDS: INSULIN ASPART 100 UNIT/ML 1 ML 10 ML VIAL SQ SCH ×4 (06:38→21:15)
[2017-11-22] MEDS: glipiZIDE 5 MG TAB PO SCH ×2 (06:39→16:42)
[2017-11-22 06:52] LABS: INR 1.5 (<1.2); Partial Thromboplastin Time 76.9 sec (22.0-30.0); Prothrombin Time 13.7 sec (9.0-12.0)
[2017-11-22 06:55] LABS: Calcium 9.3 mg/dL (8.4-10.2); Potassium 4.3 mmol/L (3.5-5.1)
[2017-11-22 07:24] LABS: Basophils # (A) 0.1 k/uL (0-0.2); Basophils % (A) 1 %; Eosinophils # (A) 0.3 k/uL (0-0.7); Eosinophils % (A) 4 %; HCT 29.3 % (34.0-46.0); HGB 9.1 gm/dL (11.4-16.0); Lymphocytes # (A) 2.4 k/uL (1.0-4.8); Lymphocytes % (A) 28 %; MCH 29.5 pg (25.0-35.0); MCHC 31.1 g/dL (31.0-37.0); MCV 94.9 fL (80.0-100.0); Mean Platelet Volume 7.5; Monocytes # (A) 0.4 k/uL (0-1.0); Monocytes % (A) 5 %; Neutrophils # (A) 5.3 k/uL (1.3-7.7); Neutrophils % (A) 61 %; Platelet Count 443 k/uL (150-450); RBC 3.09 m/uL (3.80-5.40); RDW 14.4 % (11.5-15.5); WBC 8.7 k/uL (3.8-10.6)
[2017-11-22] MEDS: POTASSIUM CHLORIDE ER 20 MEQ TAB.ER PO SCH (09:38)
[2017-11-22] MEDS: DILTIAZEM ORAL 30 MG TAB PO SCH ×3 (09:38→21:16)
[2017-11-22] MEDS: FUROSEMIDE 40 MG TAB PO SCH (09:38)
[2017-11-22] MEDS: hydrALAZINE HCL 50 MG TAB PO SCH ×3 (09:38→21:16)
[2017-11-22] MEDS: ALLOPURINOL 100 MG TAB PO SCH ×2 (09:38→20:30)
[2017-11-22] MEDS: METOPROLOL SUCCINATE (ER) 100 MG TAB.ER.24H PO SCH (09:39)
[2017-11-22] MEDS: VITAMIN E (DL,TOCOPHERYL ACET) 400 UNIT CAP PO SCH (09:39)
[2017-11-22] MEDS: FAMOTIDINE 20 MG TAB PO SCH (09:39)
[2017-11-22] MEDS: FERROUS SULFATE 325 MG TAB PO SCH (09:39)
[2017-11-22] MEDS: MAGNESIUM OXIDE 400 MG TAB PO SCH (09:39)
[2017-11-22] MEDS: SODIUM BICARBONATE TAB 650 MG TAB PO SCH ×3 (09:39→21:16)
[2017-11-22 11:50] LABS: Glucose,Whole Blood 189 mg/dL (75-99)
--- NOTE | 2017-11-22 12:56 | P.PN ---
Subjective Progress Note Date: 11/22/17 This is an 82-year-old female patient of Dr. Chambers with a previous medical history significant for hypertension and hypertensive cardio vascular disease, diabetes mellitus type 2, hyperlipidemia, bilateral lower extremity edema with stasis dermatitis, obesity with possible obstructive sleep apnea, acute kidney injury, severe aortic valve stenosis. Patient underwent heart catheterization on November [address] Seth showing mild triple-vessel coronary artery disease with severe aortic stenosis and pulmonary hypertension and calcified coronary arteries. There is recommendations for evaluation of aortic valve replacement. MIKEY revealed mildly dilated left atrium with normal appearance of left atrial appendage, concentric left ventricular hypertrophy, severe aortic stenosis and mild aortic regurgitation, mild annulus calcification with mild mitral regurgitation, mild tricuspid regurgitation, patent foramen ovale with [id number] shunting, no pericardial effusion. Patient developed shortness of breath along with cough that was initially yellow and then yesterday it started coming green as well as wheezing at night. She denies any chest pain, syncope or lightheadedness. No abdominal pain, nausea vomiting or diarrhea. She denies any dysuria. Patient is noted to have an ecchymotic area to the left orthodoxy which she does not know how this happened. came into [facility] emergency center for evaluation. WBC 12.2, hemoglobin 10.3, sodium 133, BUN 23 and creatinine 1.2, blood sugar 206, liver enzymes within normal limits, lactic acid 1.4 and influenza testing negative. Chest x-ray revealed COPD with bilateral infiltrate and small effusion and diffuse interstitial pattern. Differential includes CHF versus pneumonia. Repeat chest x-ray this morning shows minimal effusion on the left costophrenic angle. Cardiomegaly with mild pulmonary vascular prominence, probable pulmonary hypertension and COPD. Patient was started on Rocephin, azithromycin and admitted to the selective care unit. Patient subsequently developed atrial fibrillation with rapid ventricular response and started on heparin drip, Cardizem drip and Coumadin ordered by cardiology. Troponins are 0.036 and 0.040. Blood cultures were obtained in the emergency center and sputum culture is uncollected. 11/19: patient is sitting up in chair continues to be dyspneic with telemetry showing Afib with RVR and I asked the nurse to increase cardizem drip to 10 mg/h , will continue with current heparn drip and will follow. 2/11: Patient's pain a lot better today, her heart rate is down to 94, she continues to be on Cardizem, she continues to be on metoprolol 100 mg orally once every day, she is feeling a bit better less coughing less short of breath she continues to have significant edema both lower extremities. 11/21: INR is 1.3. She is currently on Cardizem 90 mg 3 times daily, metoprolol succinate 100 mg daily heparin drip, Coumadin 2.5 mg was given last evening and 7.5 mg will be ordered for tonight. radiation monitor is atrial fibrillation with controlled rate. BUN is 45 and creatinine 1.64. Lasix decreased to 40 mg twice daily. 11/22: INR is 1.5 with the 146 and creatinine 1.75. Lasix will be decreased to once day frequency. Urine culture is finalized with 50-100,000 colonies of Enterococcus faecalis thought to be colonization. Patient is scheduled to receive Coumadin 5 mg tonight. Anticipate possible discharge by tomorrow. Objective - Vital Signs Vital signs: Vital Signs Temp 96.4 F L 11/22/17 08:00 Pulse 118 H 11/22/17 08:00 Resp 16 11/22/17 08:00 BP 98/41 11/22/17 08:00 Pulse Ox 95 11/22/17 08:00 Intake & Output 11/21/17 11/22/17 11/22/17 18:59 06:59 18:59 Intake Total 240 500 101.463 Output Total 400 1 Balance 240 100 100.463 Weight 92.9 kg Intake: Intake, IV Titration 500 101.463 Amount Heparin Sod,Pork in 0.45% 500 101.463 NaCl 25,000 unit In 0.45 % NaCl 1 500ml.bag @ 11 UNITS/KG/HR 19.69 mls/hr IV .Q24H [facility] Rx#: [id number] Oral 240 Output: Urine 400 Stool 1 Other: Voiding Method Toilet Toilet # Voids 2 1 - Exam General appearance: mild distress, morbidly obese - EENT Eyes: Reports anicteric sclerae, Reports disc margins sharp, Reports PERRLA, Reports fundus normal, Reports normal apperance, Denies ptosis, Denies scleral icterus ENT: Reports hearing grossly normal, Reports NA/AT, Reports normal oropharynx, Denies thrush, Denies tonsillar exudates, Denies tonsillar swelling Ears: bilateral: normal - Neck Neck: Reports normal ROM, Denies lymphadenopathy, Denies rigidity, Denies stridor, Denies thyromegaly Carotids: bilateral: upstroke delayed Thyroid: bilateral: normal size - Respiratory Respiratory: bilateral: diminished, rales, rhonchi, wheezing, negative: prolonged expiration, prolonged inspiration - Cardiovascular Rhythm: regularly irregular Heart sounds: normal: S1, S2 Abnormal Heart Sounds: Reports systolic murmur (3/60 located in the right upper sternal border radiating to the base of the neck), Reports S3 Gallop, Denies rub , Denies click - Gastrointestinal General gastrointestinal: Reports normal bowel sounds, Reports soft, Denies scaphoid, Denies splenomegaly, Denies tenderness, Denies umbilical hernia, Denies ventral hernia - Integumentary Integumentary: Reports normal, Reports normal turgor, Reports rash (Left forearm macular papular rash almost reticular rash, bilateral lower extremity stasis dermatitis) - Neurologic Neurologic: CNII-XII intact - Musculoskeletal Musculoskeletal: Reports gait normal, Reports generalized weakness, Reports strength equal bilaterally - Psychiatric Psychiatric: Reports A&O x's 3, Reports appropriate affect, Reports intact judgment & insight - Labs CBC & Chem 7: 11/22/17 05:46 11/22/17 05:46 Labs: Abnormal Lab Results - Last 24 Hours (Table) 11/21/17 11/21/17 11/21/17 Range/Units 11:33 12:11 17:00 RBC (3.80-5.40) m/uL Hgb (11.4-16.0) gm/dL Hct (34.0-46.0) % PT (9.0-12.0) sec INR (<1.2) APTT 69.1 H (22.0-30.0) sec Sodium (137-145) mmol/L Carbon Dioxide (22-30) mmol/L BUN (7-17) mg/dL Creatinine (0.52-1.04) mg/dL Glucose (74-99) mg/dL POC Glucose (mg/dL) 207 H 213 H (75-99) mg/dL 11/21/17 11/22/17 11/22/17 Range/Units 20:50 05:46 05:46 RBC 3.09 L (3.80-5.40) m/uL Hgb 9.1 L (11.4-16.0) gm/dL Hct 29.3 L (34.0-46.0) % PT 13.7 H (9.0-12.0) sec INR 1.5 H (<1.2) APTT 76.9 H (22.0-30.0) sec Sodium (137-145) mmol/L Carbon Dioxide (22-30) mmol/L BUN (7-17) mg/dL Creatinine (0.52-1.04) mg/dL Glucose (74-99) mg/dL POC Glucose (mg/dL) 195 H (75-99) mg/dL 11/22/17 11/22/17 Range/Units 05:46 06:33 RBC (3.80-5.40) m/uL Hgb (11.4-16.0) gm/dL Hct (34.0-46.0) % PT (9.0-12.0) sec INR (<1.2) APTT (22.0-30.0) sec Sodium 135 L (137-145) mmol/L Carbon Dioxide 20 L (22-30) mmol/L BUN 46 H (7-17) mg/dL Creatinine 1.75 H (0.52-1.04) mg/dL Glucose 160 H (74-99) mg/dL POC Glucose (mg/dL) 176 H (75-99) mg/dL Microbiology - Last 24 Hours (Table) 11/17/17 15:20 Blood Culture - Preliminary Blood No Growth after 96 hours 11/17/17 14:30 Blood Culture - Preliminary Blood No Growth after 96 hours 11/18/17 19:41 Gram Stain - Preliminary Sputum Sputum Culture - Preliminary Assessment and Plan Plan: 1. Shortness of breath and cough with green sputum production secondary to possible pneumonia. Patient started on ceftriaxone and azithromycin. 2. New onset paroxysmal atrial fibrillation with episodes of rapid ventricular response. Cardiology consult is appreciated. Patient was started on heparin drip, Cardizem drip and Coumadin. Plavix was discontinued. Monitor PT and INR. 3. Severe aortic stenosis and patent foramen ovale evaluated on November 16 as an outpatient with Dr. Seth. Patient to have evaluation for valve replacement. 4. Chronic diastolic heart failure. Continue metoprolol 50 mg daily, Lasix 60 mg twice daily and potassium. Previous echocardiogram showed ejection fraction 50-55% with severe aortic valve stenosis. Repeat echocardiogram has been ordered. 5. Acute kidney injury with chronic kidney disease stage III. Avoid nephrotoxic agents and hypotension. Continue sodium bicarbonate 325 mg 3 times daily. Patient is continued on Lasix decreased to 40 mg twice daily. 6. Mild coronary artery disease status post left heart catheterization on November 16. Continue aspirin, Plavix was discontinued, continue metoprolol and statin. 7. Hyperlipidemia. Continue lovastatin 40 mg orally once every day. 8. Hypertension and hypertensive cardiovascular disease. Continue metoprolol, hydralazine 50 mg 3 times daily the. 9. Chronic stasis dermatitis, stable. 10. Obesity with possible obstructive sleep apnea. Patient will need to go for polysomnogram as an outpatient. 11. DVT prophylaxis. Patient was on heparin drip. 12. GI prophylaxis. Continue pepcid. Discharge plan: home with [facility] Impression and plan of care have been directed as dictated by the signing physician. Rosemarie Suarez nurse practitioner acting as scribe for signing physician.
[2017-11-22 14:41] VITALS: BMI 36.3
--- NOTE | 2017-11-22 15:07 | P.PN ---
Subjective Progress Note Date: 11/22/17 Principal diagnosis: Shortness of breath This is a pleasant 82-year-old female patient of Dr. Seth. She has history of diabetes, hypertension, dyslipidemia, severe aortic stenosis, recent cardiac catheterization that showed mild triple-vessel CAD and recent MIKEY that confirmed severe for which she was recommended further evaluation for replacement. Presented to the emergency department with complaints of worsening cough with yellow and green sputum as well as worsening shortness of breath. She was also found to have episodes of paroxysmal atrial fibrillation with rapid ventricular response which is new for her. Chest x-ray on admission showed COPD with bilateral infiltrate and small effusion, diffuse interstitial pattern, differential diagnosis would include CHF versus pneumonia. Patient was seen and examined this morning, overall she states her breathing is significantly improved. Planning of possible discharge home in the morning. Dr. Bryan did discuss the patient with Dr. Seth, and also explained to the patient that we will make her a follow-up appointment with Dr. Seth in the office post discharge. 11/22/2017 Patient seen and examined today, denies any shortness of breath, no chest discomfort. INR 1.5 today, creatinine 1.7. Once the patient's INR is therapeutic she will be discharged home. We'll make her a follow-up appointment in the office with Dr. Seth Objective - Vital Signs Vital signs: Vital Signs Temp 98.9 F 11/22/17 11:23 Pulse 122 H 11/22/17 11:23 Resp 19 11/22/17 11:23 BP 111/61 11/22/17 11:23 Pulse Ox 96 11/22/17 11:23 Intake & Output 11/21/17 11/22/17 11/22/17 18:59 06:59 18:59 Intake Total 240 500 221.463 Output Total 400 1 Balance 240 100 220.463 Weight 92.9 kg 92.9 kg Intake: Intake, IV Titration 500 101.463 Amount Heparin Sod,Pork in 0.45% 500 101.463 NaCl 25,000 unit In 0.45 % NaCl 1 500ml.bag @ 11 UNITS/KG/HR 19.69 mls/hr IV .Q24H [facility] Rx#: [id number] Oral 240 120 Output: Urine 400 Stool 1 Other: Voiding Method Toilet Toilet # Voids 2 1 1 - Exam PHYSICAL EXAMINATION: HEENT: Head is atraumatic, normocephalic. Pupils equal, round. Neck is supple. There is no elevated jugular venous pressure. HEART EXAMINATION: Heart sounds irregularly irregular, S1 and S2 with a systolic ejection murmur. CHEST EXAMINATION: Lungs revealed improved air exchange. No chest wall tenderness is noted on palpation or with deep breathing. ABDOMEN: Soft, nontender. Bowel sounds are heard. No organomegaly noted. EXTREMITIES: 2+ peripheral pulses with evidence of mild peripheral edema and no calf tenderness noted. NEUROLOGIC patient is awake, alert and oriented x3. - Labs CBC & Chem 7: 11/22/17 05:46 11/22/17 05:46 Labs: Abnormal Lab Results - Last 24 Hours (Table) 11/21/17 11/21/17 11/22/17 Range/Units 17:00 20:50 05:46 RBC 3.09 L (3.80-5.40) m/uL Hgb 9.1 L (11.4-16.0) gm/dL Hct 29.3 L (34.0-46.0) % PT (9.0-12.0) sec INR (<1.2) APTT (22.0-30.0) sec Sodium (137-145) mmol/L Carbon Dioxide (22-30) mmol/L BUN (7-17) mg/dL Creatinine (0.52-1.04) mg/dL Glucose (74-99) mg/dL POC Glucose (mg/dL) 213 H 195 H (75-99) mg/dL 11/22/17 11/22/17 11/22/17 Range/Units 05:46 05:46 06:33 RBC (3.80-5.40) m/uL Hgb (11.4-16.0) gm/dL Hct (34.0-46.0) % PT 13.7 H (9.0-12.0) sec INR 1.5 H (<1.2) APTT 76.9 H (22.0-30.0) sec Sodium 135 L (137-145) mmol/L Carbon Dioxide 20 L (22-30) mmol/L BUN 46 H (7-17) mg/dL Creatinine 1.75 H (0.52-1.04) mg/dL Glucose 160 H (74-99) mg/dL POC Glucose (mg/dL) 176 H (75-99) mg/dL 11/22/17 11/22/17 Range/Units 11:40 13:00 RBC (3.80-5.40) m/uL Hgb (11.4-16.0) gm/dL Hct (34.0-46.0) % PT (9.0-12.0) sec INR (<1.2) APTT 63.7 H (22.0-30.0) sec Sodium (137-145) mmol/L Carbon Dioxide (22-30) mmol/L BUN (7-17) mg/dL Creatinine (0.52-1.04) mg/dL Glucose (74-99) mg/dL POC Glucose (mg/dL) 189 H (75-99) mg/dL Microbiology - Last 24 Hours (Table) 11/18/17 19:41 Gram Stain - Final Sputum Sputum Culture - Final 11/17/17 15:20 Blood Culture - Preliminary Blood No Growth after 96 hours 11/17/17 14:30 Blood Culture - Preliminary Blood No Growth after 96 hours Assessment and Plan Plan: Assessment: #1 possible pneumonia with symptoms of shortness of breath and productive cough with yellow-green sputum. #2 severe aortic stenosis #3 pulmonary hypertension #4 mild triple-vessel CAD #5 new-onset paroxysmal atrial fibrillation From cardiology's perspective, INR today is 1.5. Coumadin has been ordered. We will continue other medications. Follow-up with Dr. Seth on discharge DNP note has been reviewed, I agree with a documented findings and plan of care. Patient was seen and examined.
[2017-11-22] MEDS: AZITHROMYCIN 500 MG TAB PO SCH (16:39)
[2017-11-22 16:52] LABS: Glucose,Whole Blood 184 mg/dL (75-99)
[2017-11-22] MEDS ORDERED: WARFARIN 5 MG TAB PO SCH (18:00)
[2017-11-22] MEDS: ATORVASTATIN 10 MG TAB PO SCH (20:30)
[2017-11-22 20:40] LABS: Glucose,Whole Blood 193 mg/dL (75-99)
[2017-11-23 05:54] LABS: Glucose,Whole Blood 161 mg/dL (75-99)
[2017-11-23] MEDS: HEPARIN SOD,PORK IN 0.45% NACL 25,000 UNIT in 0.45% NACL 1 500ML.BAG IV SCH (06:22)
[2017-11-23 06:35] LABS: Basophils # (A) 0.1 k/uL (0-0.2); Basophils % (A) 1 %; Eosinophils # (A) 0.4 k/uL (0-0.7); Eosinophils % (A) 5 %; HCT 26.3 % (34.0-46.0); HGB 8.3 gm/dL (11.4-16.0); INR 2.2 (<1.2); Lymphocytes # (A) 1.8 k/uL (1.0-4.8); Lymphocytes % (A) 22 %; MCH 29.5 pg (25.0-35.0); MCHC 31.6 g/dL (31.0-37.0); MCV 93.3 fL (80.0-100.0); Monocytes # (A) 0.4 k/uL (0-1.0); Monocytes % (A) 4 %; Neutrophils # (A) 5.5 k/uL (1.3-7.7); Neutrophils % (A) 67 %; Platelet Count 431 k/uL (150-450); Prothrombin Time 19.8 sec (9.0-12.0); RBC 2.82 m/uL (3.80-5.40); RDW 14.7 % (11.5-15.5); WBC 8.2 k/uL (3.8-10.6)
[2017-11-23] MEDS: INSULIN ASPART 100 UNIT/ML 1 ML 10 ML VIAL SQ SCH ×2 (06:54→11:56)
[2017-11-23] MEDS: glipiZIDE 5 MG TAB PO SCH (07:03)
[2017-11-23 07:08] LABS: Calcium 9.2 mg/dL (8.4-10.2); Potassium 4.1 mmol/L (3.5-5.1)
[2017-11-23] MEDS: POTASSIUM CHLORIDE ER 20 MEQ TAB.ER PO SCH (08:05)
[2017-11-23] MEDS: VITAMIN E (DL,TOCOPHERYL ACET) 400 UNIT CAP PO SCH (08:06)
[2017-11-23] MEDS: FAMOTIDINE 20 MG TAB PO SCH (08:06)
[2017-11-23] MEDS: METOPROLOL SUCCINATE (ER) 100 MG TAB.ER.24H PO SCH (08:06)
[2017-11-23] MEDS: MAGNESIUM OXIDE 400 MG TAB PO SCH (08:06)
[2017-11-23] MEDS: hydrALAZINE HCL 50 MG TAB PO SCH (08:06)
[2017-11-23] MEDS: SODIUM BICARBONATE TAB 650 MG TAB PO SCH (08:06)
[2017-11-23] MEDS: ALLOPURINOL 100 MG TAB PO SCH (08:06)
[2017-11-23] MEDS: FERROUS SULFATE 325 MG TAB PO SCH (08:06)
[2017-11-23] MEDS: DILTIAZEM ORAL 30 MG TAB PO SCH (08:06)
[2017-11-23] MEDS ORDERED: FUROSEMIDE 40 MG TAB PO SCH (09:00)
[2017-11-23 11:31] VITALS: BP 129/61; PULSE 61; RESP 15; TEMP 96.8
[2017-11-23 11:49] LABS: Glucose,Whole Blood 206 mg/dL (75-99)
--- NOTE | 2017-11-23 13:09 | P.DS ---
Providers Date of admission: 11/17/17 16:02 Expected date of discharge: 11/23/17 Attending physician: Zach May Consults: 11/18/17 04:48 Consult Physician Routine Consulting Provider: Marielle Mckinnon Consult Reason/Comments: new onset afib rvr Do you want consulting provider notified?: Yes, Notify in am Primary care physician: Doug Chambers [facility] Course: This is an 82-year-old female patient of Dr. Chambers with a previous medical history significant for hypertension and hypertensive cardio vascular disease, diabetes mellitus type 2, hyperlipidemia, bilateral lower extremity edema with stasis dermatitis, obesity with possible obstructive sleep apnea, acute kidney injury, severe aortic valve stenosis. Patient underwent heart catheterization on November [address] Seth showing mild triple-vessel coronary artery disease with severe aortic stenosis and pulmonary hypertension and calcified coronary arteries. There is recommendations for evaluation of aortic valve replacement. MIKEY revealed mildly dilated left atrium with normal appearance of left atrial appendage, concentric left ventricular hypertrophy, severe aortic stenosis and mild aortic regurgitation, mild annulus calcification with mild mitral regurgitation, mild tricuspid regurgitation, patent foramen ovale with mvsy-[id number]-iveus shunting, no pericardial effusion. Patient developed shortness of breath along with cough that was initially yellow and then yesterday it started coming green as well as wheezing at night. She denies any chest pain, syncope or lightheadedness. No abdominal pain, nausea vomiting or diarrhea. She denies any dysuria. Patient is noted to have an ecchymotic area to the left roman catholic which she does not know how this happened. came into [facility] emergency center for evaluation. WBC 12.2, hemoglobin 10.3, sodium 133, BUN 23 and creatinine 1.2, blood sugar 206, liver enzymes within normal limits, lactic acid 1.4 and influenza testing negative. Chest x-ray revealed COPD with bilateral infiltrate and small effusion and diffuse interstitial pattern. Differential includes CHF versus pneumonia. Repeat chest x-ray this morning shows minimal effusion on the left costophrenic angle. Cardiomegaly with mild pulmonary vascular prominence, probable pulmonary hypertension and COPD. Patient was started on Rocephin, azithromycin and admitted to the selective care unit. Patient subsequently developed atrial fibrillation with rapid ventricular response and started on heparin drip, Cardizem drip and Coumadin ordered by cardiology. Troponins are 0.036 and 0.040. Blood cultures were obtained in the emergency center and sputum culture is uncollected. 11/19: patient is sitting up in chair continues to be dyspneic with telemetry showing Afib with RVR and I asked the nurse to increase cardizem drip to 10 mg/h , will continue with current heparn drip and will follow. 11/20: Patient's pain a lot better today, her heart rate is down to 94, she continues to be on Cardizem, she continues to be on metoprolol 100 mg orally once every day, she is feeling a bit better less coughing less short of breath she continues to have significant edema both lower extremities. 11/21: INR is 1.3. She is currently on Cardizem 90 mg 3 times daily, metoprolol succinate 100 mg daily heparin drip, Coumadin 2.5 mg was given last evening and 7.5 mg will be ordered for tonight. gambling monitor is atrial fibrillation with controlled rate. BUN is 45 and creatinine 1.64. Lasix decreased to 40 mg twice daily. 11/22: INR is 1.5 with the 146 and creatinine 1.75. Lasix will be decreased to once day frequency. Urine culture is finalized with 50-100,000 colonies of Enterococcus faecalis thought to be colonization. Patient is scheduled to receive Coumadin 5 mg tonight. Anticipate possible discharge by tomorrow. 11/23: INR is 2.2, BUN 41 creatinine 1.65. Heparin drip will be discontinued. Lasix will be continued at home at 60mg daily. Patient denies any chest pain, shortness of breath. Patient will be discharged home today in stable condition. Discharge diagnoses: 1. Possible pneumonia. 2. New onset paroxysmal atrial fibrillation with episodes of rapid ventricular response. 3. Severe aortic stenosis and patent foramen ovale evaluated on November 16 as an outpatient with Dr. Seth. 4. Chronic diastolic heart failure. 5. Acute kidney injury with chronic kidney disease stage III. 6. Mild coronary artery disease status post left heart catheterization on November 16. 7. Hyperlipidemia. 8. Hypertension and hypertensive cardiovascular disease. 9. Chronic stasis dermatitis, stable. 10. Obesity with possible obstructive sleep apnea. Patient will need to go for polysomnogram as an outpatient. Discharge plan: home with [facility] Impression and plan of care have been directed as dictated by the signing physician. Rosemarie Suarez nurse practitioner acting as scribe for signing physician. Patient Condition at Discharge: Good Plan - Discharge Summary Discharge Rx Participant: No New Discharge Prescriptions: New Diltiazem HCl [Cardizem] 90 mg PO TID #90 tablet Famotidine [Pepcid] 20 mg PO DAILY #30 tab Metoprolol Succinate (ER) [Toprol XL] 100 mg PO DAILY #30 tab.er.24h Warfarin [Coumadin] 5 mg PO DAILY@1800 #30 tab Continue Lovastatin [Mevacor] 40 mg PO HS Potassium Chloride [K-Tab ER] 40 meq PO DAILY Nitroglycerin Sl Tabs [Nitrostat] 0.4 mg SUBLINGUAL Q5M PRN #25 tab PRN Reason: Chest Pain Clopidogrel [Plavix] 75 mg PO DAILY hydrALAZINE HCL [Apresoline] 50 mg PO TID Magnesium Oxide 400 mg PO DAILY Docusate [Colace] 100 mg PO DAILY PRN PRN Reason: Constipation Allopurinol [Zyloprim] 100 mg PO BID Vitamin E Acetate [Vitamin E] 200 unit PO DAILY Procrit (Unknown Dose) 1 dose INJ DIRECTED Ferrous Sulfate [Iron (65 MG Elemental)] 325 mg PO DAILY glipiZIDE XL [Glucotrol XL] 10 mg PO AC-BID Triamcinolone 0.025% Cream [Kenalog 0.025% Cream] 1 applic TOPICAL BID PRN PRN Reason: Rash Fluticasone Nasal [place] [Flonase Nasal [place]] 1 spr EA NOSTRIL DAILY Sodium Bicarbonate Tab 325 mg PO TID Hydrocortisone Cream [Hydrocortisone 2.5% Cream] 1 applic TOPICAL BID Changed Furosemide [Lasix] 60 mg PO DAILY #0 Discontinued Metoprolol Succinate [Toprol Xl] 50 mg PO DAILY Discharge Medication List Lovastatin [Mevacor] 40 mg PO HS 06/23/14 [History] Potassium Chloride [K-Tab ER] 40 meq PO DAILY 06/23/14 [History] Nitroglycerin Sl Tabs [Nitrostat] 0.4 mg SUBLINGUAL Q5M PRN #25 tab 02/12/16 [Rx ] Clopidogrel [Plavix] 75 mg PO DAILY 03/18/16 [History] hydrALAZINE HCL [Apresoline] 50 mg PO TID 12/08/16 [History] Docusate [Colace] 100 mg PO DAILY PRN 02/17/17 [History] Magnesium Oxide 400 mg PO DAILY 02/17/17 [History] Allopurinol [Zyloprim] 100 mg PO BID 04/28/17 [History] Procrit (Unknown Dose) 1 dose INJ DIRECTED 11/07/17 [History] Vitamin E Acetate [Vitamin E] 200 unit PO DAILY 11/07/17 [History] Ferrous Sulfate [Iron (65 MG Elemental)] 325 mg PO DAILY 11/17/17 [History] Fluticasone Nasal [place] [Flonase Nasal [place]] 1 spr EA NOSTRIL DAILY 11/17/17 [ History] Hydrocortisone Cream [Hydrocortisone 2.5% Cream] 1 applic TOPICAL BID 11/17/17 [ History] Sodium Bicarbonate Tab 325 mg PO TID 11/17/17 [History] Triamcinolone 0.025% Cream [Kenalog 0.025% Cream] 1 applic TOPICAL BID PRN 11/17 [History] glipiZIDE XL [Glucotrol XL] 10 mg PO AC-BID 11/17/17 [History] Diltiazem HCl [Cardizem] 90 mg PO TID #90 tablet 11/23/17 [Rx] Famotidine [Pepcid] 20 mg PO DAILY #30 tab 11/23/17 [Rx] Furosemide [Lasix] 60 mg PO DAILY #0 11/23/17 [Rx] Metoprolol Succinate (ER) [Toprol XL] 100 mg PO DAILY #30 tab.er.24h 11/23/17 [ Rx] Warfarin [Coumadin] 5 mg PO DAILY@1800 #30 tab 11/23/17 [Rx] Follow up Appointment(s)/Referral(s): Alecia Seth MD [STAFF PHYSICIAN] - 1 Week (spoke to hospital receptionist, office will call with appointment time. ) [facility], [NON-STAFF] - Doug Chambers MD [Primary Care Provider] - 11/24/17 2:00 pm Patient Instructions/Handouts: *Surgery [facility] - After Heart Catheterization - Photo Mask Pattern Generator Instructions, A-fib (Atrial Fibrillation) (DC), Left Heart Catheterization (DC), Aortic Stenosis (DC), Pneumonia (DC), Safe Use of Anticoagulants (DC) Discharge Disposition: HOME WITH HOME HEALTH SERVICES
--- NOTE | 2017-11-23 16:09 | P.PN ---
Subjective Progress Note Date: 11/23/17 Principal diagnosis: Shortness of breath This is a pleasant 82-year-old female patient of Dr. Seth. She has history of diabetes, hypertension, dyslipidemia, severe aortic stenosis, recent cardiac catheterization that showed mild triple-vessel CAD and recent MIKEY that confirmed severe for which she was recommended further evaluation for replacement. Presented to the emergency department with complaints of worsening cough with yellow and green sputum as well as worsening shortness of breath. She was also found to have episodes of paroxysmal atrial fibrillation with rapid ventricular response which is new for her. Chest x-ray on admission showed COPD with bilateral infiltrate and small effusion, diffuse interstitial pattern, differential diagnosis would include CHF versus pneumonia. Patient was seen and examined this morning, overall she states her breathing is significantly improved. Planning of possible discharge home in the morning. Dr. Bryan did discuss the patient with Dr. Seth, and also explained to the patient that we will make her a follow-up appointment with Dr. Seth in the office post discharge. 11/22/2017 Patient seen and examined today, denies any shortness of breath, no chest discomfort. INR 1.5 today, creatinine 1.7. Once the patient's INR is therapeutic she will be discharged home. We'll make her a follow-up appointment in the office with Dr. Seth. 11/23/2017 Patient seen and examined, doing well overall. Discharged home today. INR 2.2 , hemoglobin 8.3, creatinine 1.6. Objective - Vital Signs Vital signs: Vital Signs Temp 96.8 F L 11/23/17 11:30 Pulse 61 11/23/17 11:30 Resp 15 11/23/17 11:30 BP 129/61 11/23/17 11:30 Pulse Ox 93 L 11/23/17 11:30 Intake & Output 11/22/17 11/23/17 11/23/17 18:59 06:59 18:59 Intake Total 117.880 5075.537 980 Output Total 1 1 Balance 196.936 5898.537 979 Weight 92.9 kg 92.1 kg Intake: Intake, IV Titration 101.463 398.537 Amount Heparin Sod,Pork in 0.45% 101.463 398.537 NaCl 25,000 unit In 0.45 % NaCl 1 500ml.bag @ 11 UNITS/KG/HR 19.69 mls/hr IV .Q24H [facility] Rx#: [id number] Oral 360 700 980 Output: Stool 1 1 Other: Voiding Method Toilet Toilet Toilet # Voids 2 1 # Bowel Movements 1 1 - Exam PHYSICAL EXAMINATION: HEENT: Head is atraumatic, normocephalic. Pupils equal, round. Neck is supple. There is no elevated jugular venous pressure. HEART EXAMINATION: Heart sounds irregularly irregular, S1 and S2 with a systolic ejection murmur. CHEST EXAMINATION: Lungs revealed improved air exchange. No chest wall tenderness is noted on palpation or with deep breathing. ABDOMEN: Soft, nontender. Bowel sounds are heard. No organomegaly noted. EXTREMITIES: 2+ peripheral pulses with evidence of mild peripheral edema and no calf tenderness noted. NEUROLOGIC patient is awake, alert and oriented x3. - Labs CBC & Chem 7: 11/23/17 06:16 11/23/17 06:16 Labs: Abnormal Lab Results - Last 24 Hours (Table) 11/22/17 11/22/17 11/23/17 Range/Units 16:41 20:39 05:50 RBC (3.80-5.40) m/uL Hgb (11.4-16.0) gm/dL Hct (34.0-46.0) % PT (9.0-12.0) sec INR (<1.2) APTT (22.0-30.0) sec Sodium (137-145) mmol/L BUN (7-17) mg/dL Creatinine (0.52-1.04) mg/dL Glucose (74-99) mg/dL POC Glucose (mg/dL) 184 H 193 H 161 H (75-99) mg/dL 11/23/17 11/23/17 11/23/17 Range/Units 06:16 06:16 06:16 RBC 2.82 L (3.80-5.40) m/uL Hgb 8.3 L (11.4-16.0) gm/dL Hct 26.3 L (34.0-46.0) % PT 19.8 H (9.0-12.0) sec INR 2.2 H (<1.2) APTT (22.0-30.0) sec Sodium 135 L (137-145) mmol/L BUN 41 H (7-17) mg/dL Creatinine 1.65 H (0.52-1.04) mg/dL Glucose 153 H (74-99) mg/dL POC Glucose (mg/dL) (75-99) mg/dL 11/23/17 11/23/17 Range/Units 06:16 11:48 RBC (3.80-5.40) m/uL Hgb (11.4-16.0) gm/dL Hct (34.0-46.0) % PT (9.0-12.0) sec INR (<1.2) APTT 57.1 H (22.0-30.0) sec Sodium (137-145) mmol/L BUN (7-17) mg/dL Creatinine (0.52-1.04) mg/dL Glucose (74-99) mg/dL POC Glucose (mg/dL) 206 H (75-99) mg/dL Microbiology - Last 24 Hours (Table) 11/17/17 15:20 Blood Culture - Preliminary Blood No Growth after 120 hours 11/17/17 14:30 Blood Culture - Preliminary Blood No Growth after 120 hours Assessment and Plan Plan: Assessment: #1 possible pneumonia with symptoms of shortness of breath and productive cough with yellow-green sputum. #2 severe aortic stenosis #3 pulmonary hypertension #4 mild triple-vessel CAD #5 new-onset paroxysmal atrial fibrillation From cardiology's perspective, INR today is 2.2. Coumadin has been ordered. We will continue other medications. Follow-up with Dr. Seth on discharge DNP note has been reviewed, I agree with a documented findings and plan of care. Patient was seen and examined.
== END 2017-11-23 13:55 | disposition home health service (06) | DRG 194 ==
LOC: EC 14:09 → 6SEL 16:02
PROVIDERS: ADMIT Internal Medicine Geriatric Medicine; ATTEND Internal Medicine Geriatric Medicine
DX: J18.9 Pneumonia, unspecified organism (principal); Q21.1 Atrial septal defect; N17.9 Acute kidney failure, unspecified; E11.22 Type 2 diabetes mellitus with diabetic chronic kidney disease; I08.3 Combined rheumatic disorders of mitral, aortic and tricuspid valves; I27.20 Pulmonary hypertension, unspecified; I50.32 Chronic diastolic (congestive) heart failure; I13.0 Hypertensive heart and chronic kidney disease with heart failure and stage 1 through stage 4 chronic kidney disease, or unspecified chronic kidney disease; E66.01 Morbid (severe) obesity due to excess calories; J44.0 Chronic obstructive pulmonary disease with (acute) lower respiratory infection; I48.0 Paroxysmal atrial fibrillation; K21.9 Gastro-esophageal reflux disease without esophagitis; I49.3 Ventricular premature depolarization; N18.3 Chronic kidney disease, stage 3 (moderate); D64.9 Anemia, unspecified; I25.10 Atherosclerotic heart disease of native coronary artery without angina pectoris; E78.5 Hyperlipidemia, unspecified; I87.2 Venous insufficiency (chronic) (peripheral); G47.33 Obstructive sleep apnea (adult) (pediatric); M19.91 Primary osteoarthritis, unspecified site; Z68.36 Body mass index [BMI] 36.0-36.9, adult; Z79.02 Long term (current) use of antithrombotics/antiplatelets; Z79.84 Long term (current) use of oral hypoglycemic drugs; Z79.51 Long term (current) use of inhaled steroids; Z79.899 Other long term (current) drug therapy; Z87.891 Personal history of nicotine dependence; Z98.49 Cataract extraction status, unspecified eye; Z88.1 Allergy status to other antibiotic agents
CPT/HCPCS: 36415; 71046; 80048; 80053; 81001; 82550; 82553; 82810; 83036; 83605; 83735; 84484; 85018; 85025; 85610; 85730; 87040; 87070; 87077; 87086; 87186; 87205; 87502; 93005; 93312; 93320; 93325; 93460; 94640; 96365; 96367; 96375; 99285

== ENCOUNTER → 2017-11-28 | Outpatient (CLI) | payer MEDICARE ==
[2017-11-28 08:32] LABS: HCT 28.4 % (34.0-46.0); HGB 8.9 gm/dL (11.4-16.0); Hypochromasia Slight; MCHC 31.4 g/dL (31.0-37.0); MCV 95.7 fL (80.0-100.0); Mean Platelet Volume 7.1; Platelet Count 377 k/uL (150-450); RBC 2.96 m/uL (3.80-5.40); RDW 15.8 % (11.5-15.5); WBC 7.5 k/uL (3.8-10.6)
--- NOTE | 2017-11-28 08:37 | XR ---
EXAMINATION TYPE: XR chest 2V DATE OF EXAM: 11/28/2017 COMPARISON: Prior chest x-ray November 18, 2017 and older chest x-rays. HISTORY: Left lower lobe pneumonia progress study. TECHNIQUE: Frontal and lateral views of the chest are obtained. FINDINGS: There is chronic parenchymal change bilaterally with persistent patchy left basilar opacity . There is persistent small left pleural effusion. There is no new focal air space opacity, pleural e ffusion, or pneumothorax seen. The cardiac silhouette size remains enlarged. The osseous structure s are intact. IMPRESSION: Chronic parenchymal change and cardiomegaly with persistent patchy left basilar atelecta sis and/or infiltrate and small left pleural effusion. No new infiltrate is seen.
[2017-11-28 08:43] LABS: Albumin 3.3 g/dL (3.5-5.0); Calcium 9.2 mg/dL (8.4-10.2); Potassium 4.4 mmol/L (3.5-5.1); Total Bilirubin 0.3 mg/dL (0.2-1.3); Total Protein 6.2 g/dL (6.3-8.2)
[2017-11-28 19:48] LABS: Iron Saturation 14.18 (12.00-45.00)
== END | disposition home or self-care (01) ==
LOC: LABWHC1 07:46
PROVIDERS: ATTEND Internal Medicine
DX: J90 Pleural effusion, not elsewhere classified (principal); J98.11 Atelectasis; I51.7 Cardiomegaly; R91.8 Other nonspecific abnormal finding of lung field; D64.9 Anemia, unspecified
CPT/HCPCS: 36415; 71046; 80053; 82607; 82728; 83540; 83550; 85027

== ENCOUNTER → 2017-12-26 | Outpatient (CLI) | payer MEDICARE ==
[2017-12-26 12:00] LABS: HCT 29.2 % (34.0-46.0); HGB 9.6 gm/dL (11.4-16.0); MCH 30.5 pg (25.0-35.0); MCHC 32.8 g/dL (31.0-37.0); MCV 93.2 fL (80.0-100.0); Mean Platelet Volume 8.1; Platelet Count 258 k/uL (150-450); RBC 3.14 m/uL (3.80-5.40); WBC 6.1 k/uL (3.8-10.6)
[2017-12-26 12:13] LABS: Albumin 3.7 g/dL (3.5-5.0); Calcium 9.2 mg/dL (8.4-10.2); Potassium 4.2 mmol/L (3.5-5.1); Total Bilirubin 0.3 mg/dL (0.2-1.3); Total Protein 6.6 g/dL (6.3-8.2)
== END | disposition home or self-care (01) ==
LOC: LABWHC1 11:28
PROVIDERS: ATTEND Nurse Practitioner Family
DX: N18.3 Chronic kidney disease, stage 3 (moderate) (principal); D63.1 Anemia in chronic kidney disease
CPT/HCPCS: 36415; 80053; 85027

== ENCOUNTER → 2018-01-18 | Outpatient (CLI) | payer MEDICARE ==
[2018-01-18 10:44] LABS: Albumin 3.4 g/dL (3.5-5.0); Calcium 9.1 mg/dL (8.4-10.2); Potassium 3.9 mmol/L (3.5-5.1); Total Bilirubin 0.3 mg/dL (0.2-1.3); Total Protein 6.1 g/dL (6.3-8.2)
== END | disposition home or self-care (01) ==
LOC: LABWHC1 09:14
PROVIDERS: ATTEND Internal Medicine Interventional Cardiology
DX: E78.2 Mixed hyperlipidemia (principal)
CPT/HCPCS: 36415; 80053; 80061

== ENCOUNTER 2018-01-29 13:24 | Inpatient (IN) | payer MEDICARE ==
--- NOTE | 2018-01-29 13:48 | ED ---
General Adult HPI - General Chief complaint: Recheck/Abnormal Lab/Rx Stated complaint: Infected incision Time Seen by Provider: 01/29/18 13:47 Source: patient Mode of arrival: wheelchair Limitations: no limitations - History of Present Illness Initial comments: Jeanna is an 82-year-old female who presents to the emergency department for an evaluation of a nonhealing wound. Patient reports she underwent a procedure on January 02 at an outside hospital, patient is uncertain of the name of the procedure but based on her description I believe that she had a tavern. She reports that she had a heart procedure to repair her aorta and that the procedure was done through access in her right femoral artery. Patient reports that since the procedure she has had difficulty with healing of the wound. She reports that the wound has had dry white skin over it and clear drainage. She reports that she saw her vascular surgeon last week and was advised to follow-up again next week. She reports that she is not on any antibiotics at this time. She reports that over the past couple of days she has noticed increase drainage from her wound, today she noticed that the drainage appeared green and have a very foul odor which prompted her to come to the emergency department for further evaluation. Patient denies any fevers, chills, night sweats, chest pain, shortness of breath or any change in bowel or bladder habits. Patient does report that the smell makes her feel somewhat nauseated but aside from that she's been eating and drinking well, taking her usual home medications and tending to her activities of daily living. - Related Data Home Medications Medication Instructions Recorded Confirmed Lovastatin [Mevacor] 40 mg PO HS 06/23/14 01/29/18 Potassium Chloride [K-Tab ER] 10 meq PO 5XD 06/23/14 01/29/18 hydrALAZINE HCL [Apresoline] 50 mg PO TID 12/08/16 01/29/18 Magnesium Oxide 400 mg PO DAILY 02/17/17 01/29/18 Allopurinol [Zyloprim] 200 mg PO DAILY 04/28/17 01/29/18 Vitamin E Acetate [Vitamin E] 200 unit PO DAILY 11/07/17 01/29/18 Sodium Bicarbonate Tab 325 mg PO DAILY 11/17/17 01/29/18 Triamcinolone 0.025% Cream 1 applic TOPICAL TID 11/17/17 01/29/18 [Kenalog 0.025% Cream] glipiZIDE XL [Glucotrol XL] 10 mg PO AC-BID 11/17/17 01/29/18 Apixaban [Eliquis] 2.5 mg PO BID 01/29/18 01/29/18 Ascorbic Acid [Vitamin C] 500 mg PO DAILY 01/29/18 01/29/18 Aspirin EC [Ecotrin Low Dose] 81 mg PO DAILY 01/29/18 01/29/18 Docusate Sodium 250mg 250 mg PO DAILY 01/29/18 01/29/18 Furosemide [Lasix] 60 mg PO BID 01/29/18 01/29/18 Multivitamins, Thera [Multivitamin 1 tab PO DAILY 01/29/18 01/29/18 (formulary)] Previous Rx's Medication Instructions Recorded Diltiazem HCl [Cardizem] 90 mg PO TID #90 tablet 11/23/17 Famotidine [Pepcid] 20 mg PO DAILY #30 tab 11/23/17 Metoprolol Succinate (ER) [Toprol 100 mg PO DAILY #30 tab.er.24h 11/23/17 XL] Allergies Allergy/AdvReac Type Severity Reaction Status Date / Time cephalexin monohydrate Allergy Rash/Hives Verified 01/29/18 18:34 [From Keflex] rofecoxib [From Vioxx] Allergy Unknown Verified 01/29/18 18:34 Review of Systems ROS Statement: Those systems with pertinent positive or pertinent negative responses have been documented in the HPI. ROS Other: All systems not noted in ROS Statement are negative. Constitutional: Denies: fever, chills Respiratory: Denies: cough, dyspnea Cardiovascular: Denies: chest pain, palpitations Endocrine: Denies: fatigue Gastrointestinal: Reports: nausea. Denies: abdominal pain, vomiting Genitourinary: Denies: dysuria Musculoskeletal: Denies: back pain Skin: Reports: other (Nonhealing wound in right groin) Neurological: Denies: weakness Psychiatric: Denies: anxiety, depression Hematological/Lymphatic: Denies: easy bleeding, easy bruising Past Medical History Past Medical History: Coronary Artery Disease (CAD), Diabetes Mellitus, GERD/ Reflux, Hyperlipidemia, Hypertension, Osteoarthritis (OA), Renal Disease Additional Past Medical History / Comment(s): USES A WALKER, LEG SWELLING, MURMUR, SINUS PROBLEMS, BENIGN POLYPS, INCONT OF URINE, PAST HX ANEMIA, "kidney function-3.5", severe aortic stenosis, patent foramen ovale History of Any Multi-Drug Resistant Organisms: None Reported Past Surgical History: Heart Catheterization, Heart Catheterization With Stent Additional Past Surgical History / Comment(s): CATARACT SURGERY, COLONOSCOPY, bisi Past Anesthesia/Blood Transfusion Reactions: No Reported Reaction Past Psychological History: No Psychological Hx Reported Smoking Status: Former smoker Past Alcohol Use History: None Reported Past Drug Use History: None Reported - Past Family History Mother Family Medical History: CVA/TIA, Diabetes Mellitus Father Family Medical History: Cancer, Coronary Artery Disease (CAD) Brother(s) Family Medical History: CVA/TIA, Diabetes Mellitus Sister(s) Family Medical History: Dementia Son(s) Family Medical History: No Reported History Daughter(s) Family Medical History: No Reported History General Exam Limitations: no limitations General appearance: alert, in no apparent distress Head exam: Present: atraumatic, normocephalic Eye exam: Present: PERRL ENT exam: Present: normal exam Neck exam: Present: normal inspection Respiratory exam: Present: normal lung sounds bilaterally. Absent: respiratory distress Cardiovascular Exam: Present: regular rate, normal rhythm, systolic murmur GI/Abdominal exam: Present: soft. Absent: distended Rectal exam: Present: deferred External exam: Present: other (Diapered, incontinent of urine) Extremities exam: Present: pedal edema, other (Skin changes consistent with chronic venous stasis,) Neurological exam: Present: alert, oriented X3 Psychiatric exam: Present: normal affect, normal mood Skin exam: Present: other (Nonhealing wound in the right groin measuring approximately 10 cm in length, maximum width is approximately 4 cm, there is minimal surrounding erythema, purulent malodorous discharge from the wound) Course Vital Signs 01/29/18 01/29/18 01/29/18 13:31 14:33 15:06 Temperature 97.7 F 99.0 F 99.3 F Pulse Rate 62 69 69 Respiratory 18 18 18 Rate Blood Pressure 178/92 174/73 O2 Sat by Pulse 98 93 L 98 Oximetry 01/29/18 17:41 Temperature 98.8 F Pulse Rate 71 Respiratory 16 Rate Blood Pressure 157/74 O2 Sat by Pulse 98 Oximetry EKG Findings - EKG Comments: EKG Findings:: EKG at 2:57 PM - Rate 69, rhythm sinus, normal axis, prolonged HI interval, no acute ST elevations or depressions. Medical Decision Making - Medical Decision Making The patient was seen and evaluated, history was obtained from the patient and her at bedside Patient underwent a transvascular artifact procedure on January 02 or at an outside facility, patient has had subsequent nonhealing of the vascular access site in her right groin and presents today with malodorous purulent discharge No SIRS criteria Sepsis workup ordered Labs with worsening anemia, chronic kidney disease CT changed to without contrast due to kidney function CT with wound and possible fluid collection seroma vs hematoma vs abscess US with no pseudoaneurysm Labs and imaging were discussed with the patient and , expressed understanding and agreement with plan for admission here for wound care. Patient care was discussed with admitting physician Dr. Carolina, who accepts the admission and agrees with plan for IV antibiotics, wound care consult. He will evaluate the patient tomorrow and make a determination if the patient needs to be transferred to surgical facility or if her wound can be managed here. Orders were placed - Lab Data Result diagrams: 01/29/18 14:13 01/29/18 14:13 Lab Results 01/29/18 01/29/18 01/29/18 Range/Units 14:13 14:13 14:13 WBC 9.4 (3.8-10.6) k/uL RBC 2.66 L (3.80-5.40) m/uL Hgb 7.8 L D (11.4-16.0) gm/dL Hct 24.0 L (34.0-46.0) % MCV 90.5 (80.0-100.0) fL MCH 29.2 (25.0-35.0) pg MCHC 32.3 (31.0-37.0) g/dL RDW 15.5 (11.5-15.5) % Plt Count 282 (150-450) k/uL Neutrophils % 78 % Lymphocytes % 11 % Monocytes % 5 % Eosinophils % 4 % Basophils % 0 % Neutrophils # 7.3 (1.3-7.7) k/uL Lymphocytes # 1.0 (1.0-4.8) k/uL Monocytes # 0.5 (0-1.0) k/uL Eosinophils # 0.4 (0-0.7) k/uL Basophils # 0.0 (0-0.2) k/uL PT (9.0-12.0) sec INR (<1.2) APTT (22.0-30.0) sec Sodium 138 (137-145) mmol/L Potassium 4.1 (3.5-5.1) mmol/L Chloride 99 (98-107) mmol/L Carbon Dioxide 24 (22-30) mmol/L Anion Gap 15 mmol/L BUN 40 H (7-17) mg/dL Creatinine 1.30 H (0.52-1.04) mg/dL Est GFR (CKD-EPI)AfAm 44 (>60 ml/min/1.73 sqM) Est GFR (CKD-EPI)NonAf 38 (>60 ml/min/1.73 sqM) Glucose 152 H (74-99) mg/dL POC Glucose (mg/dL) (75-99) mg/dL POC Glu Pharmacovigilance Safety Expert ID Plasma Lactic Acid Evgeny 0.9 (0.7-2.0) mmol/L Calcium 8.7 (8.4-10.2) mg/dL Total Bilirubin 0.3 (0.2-1.3) mg/dL AST 13 L (14-36) U/L ALT 13 (9-52) U/L Alkaline Phosphatase 50 (38-126) U/L Total Protein 5.8 L (6.3-8.2) g/dL Albumin 3.3 L (3.5-5.0) g/dL Urine Color Urine Appearance (Clear) Urine pH (5.0-8.0) Ur Specific [place] (1.001-1.035) Urine Protein (Negative) Urine Glucose (UA) (Negative) Urine Ketones (Negative) Urine Blood (Negative) Urine Nitrite (Negative) Urine Bilirubin (Negative) Urine Urobilinogen (<2.0) mg/dL Ur Leukocyte Esterase (Negative) 01/29/18 01/29/18 01/29/18 Range/Units 14:13 16:00 18:10 WBC (3.8-10.6) k/uL RBC (3.80-5.40) m/uL Hgb (11.4-16.0) gm/dL Hct (34.0-46.0) % MCV (80.0-100.0) fL MCH (25.0-35.0) pg MCHC (31.0-37.0) g/dL RDW (11.5-15.5) % Plt Count (150-450) k/uL Neutrophils % % Lymphocytes % % Monocytes % % Eosinophils % % Basophils % % Neutrophils # (1.3-7.7) k/uL Lymphocytes # (1.0-4.8) k/uL Monocytes # (0-1.0) k/uL Eosinophils # (0-0.7) k/uL Basophils # (0-0.2) k/uL PT 10.5 (9.0-12.0) sec INR 1.1 (<1.2) APTT 25.3 (22.0-30.0) sec Sodium (137-145) mmol/L Potassium (3.5-5.1) mmol/L Chloride (98-107) mmol/L Carbon Dioxide (22-30) mmol/L Anion Gap mmol/L BUN (7-17) mg/dL Creatinine (0.52-1.04) mg/dL Est GFR (CKD-EPI)AfAm (>60 ml/min/1.73 sqM) Est GFR (CKD-EPI)NonAf (>60 ml/min/1.73 sqM) Glucose (74-99) mg/dL POC Glucose (mg/dL) 122 H (75-99) mg/dL POC Glu Pharmacovigilance Safety Expert ID Yasir Morton Plasma Lactic Acid Evgeny (0.7-2.0) mmol/L Calcium (8.4-10.2) mg/dL Total Bilirubin (0.2-1.3) mg/dL AST (14-36) U/L ALT (9-52) U/L Alkaline Phosphatase (38-126) U/L Total Protein (6.3-8.2) g/dL Albumin (3.5-5.0) g/dL Urine Color Yellow Urine Appearance Clear (Clear) Urine pH 6.0 (5.0-8.0) Ur Specific [place] 1.013 (1.001-1.035) Urine Protein Trace H (Negative) Urine Glucose (UA) Negative (Negative) Urine Ketones Negative (Negative) Urine Blood Negative (Negative) Urine Nitrite Negative (Negative) Urine Bilirubin Negative (Negative) Urine Urobilinogen <2.0 (<2.0) mg/dL Ur Leukocyte Esterase Negative (Negative) Disposition Clinical Impression: Wound infection after surgery Disposition: ADMITTED IP TO THIS HOSP Condition: Good Is patient prescribed a controlled substance at d/c from ED?: No Referrals: Doug Chambers MD [Primary Care Provider] - 1-2 days Decision Time: 18:35
[2018-01-29] MEDS ORDERED: VANCOMYCIN IV PER PHARMACY 1 EACH MISC MISCELLANE PRN (14:00)
[2018-01-29] MEDS ORDERED: LEVOFLOXACIN 750MG-D5W PMX 750 MG in DEXTROSE/WATER 1 150ML.BAG IVPB STA (14:00)
[2018-01-29] MEDS ORDERED: RX INFO: IV CONTRAST WAS GIVEN 1 EACH MISC MISCELLANE PRN (14:03)
[2018-01-29] MEDS ORDERED: VANCOMYCIN 1,750 MG in SODIUM CHLORIDE 0.9% 250 ML IVPB STA (14:23)
[2018-01-29 14:25] LABS: Basophils % (A) 0 %; Eosinophils # (A) 0.4 k/uL (0-0.7); Eosinophils % (A) 4 %; Lymphocytes % (A) 11 %; MCH 29.2 pg (25.0-35.0); MCHC 32.3 g/dL (31.0-37.0); MCV 90.5 fL (80.0-100.0); Mean Platelet Volume 8.4; Monocytes # (A) 0.5 k/uL (0-1.0); Monocytes % (A) 5 %; Neutrophils # (A) 7.3 k/uL (1.3-7.7); Neutrophils % (A) 78 %; Platelet Count 282 k/uL (150-450); RBC 2.66 m/uL (3.80-5.40); RDW 15.5 % (11.5-15.5); WBC 9.4 k/uL (3.8-10.6)
[2018-01-29 14:34] LABS: INR 1.1 (<1.2); Partial Thromboplastin Time 25.3 sec (22.0-30.0); Prothrombin Time 10.5 sec (9.0-12.0)
[2018-01-29 14:35] LABS: HGB 7.8 gm/dL (11.4-16.0)
[2018-01-29 14:44] LABS: Albumin 3.3 g/dL (3.5-5.0); Calcium 8.7 mg/dL (8.4-10.2); Potassium 4.1 mmol/L (3.5-5.1); Total Bilirubin 0.3 mg/dL (0.2-1.3); Total Protein 5.8 g/dL (6.3-8.2)
[2018-01-29 16:34] LABS: Appearance,Urine Clear (Clear); Bilirubin,Urine Negative (Negative); Blood,Urine Negative (Negative); Color,Urine Yellow; Glucose,Urine (UA) Negative (Negative); Ketones,Urine Negative (Negative); Leukocyte Esterase,Urine Negative (Negative); Nitrite,Urine Negative (Negative); Protein,Urine Trace (Negative); Specific Gravity,Urine 1.013 (1.001-1.035); Urobilinogen,Urine <2.0 mg/dL (<2.0)
--- NOTE | 2018-01-29 17:11 | CT ---
EXAMINATION TYPE: CT pelvis wo con DATE OF EXAM: 01/29/2018 COMPARISON: 01/21/2010 HISTORY: Pain to right lower side incision site is some cardiac catheter. CT DLP: 716 mGycm Examination of the solid and hollow viscera is limited given the lack of contrast. FINDINGS: At right inguinal cardiac catheter site there is a hypoattenuating collection measuring 6.2 x 5.0 cm may reflect hematoma or seroma. Infected collection is not excluded. KIDNEYS: Lines portions of the kidneys are unremarkable. BOWEL: Appendix has a normal appearance. No evidence of bowel obstruction. No inflammatory process. Lymph nodes: No evidence for adenopathy greater than 1 cm. Abdominal aorta: Atheromatous changes seen. No evidence for aneurysm. Genital organs: Atrophic changes of the uterus. Other: Fat-containing umbilical hernia. IMPRESSION: At right inguinal cardiac catheter site there is a hypoattenuating collection measuring 6.2 x 5.0 cm may reflect hematoma or seroma. Infected collection is not excluded.
--- NOTE | 2018-01-29 17:27 | US ---
EXAMINATION TYPE: US lower ext pseudo artery RT DATE OF EXAM: 01/29/2018 COMPARISON: CT CLINICAL HISTORY: Right groin, eval for pseudoaneurysm. Right groin open wound, heart cath approx 4 w eeks ago, right groin approach EXAM PERFORMED: Grayscale and color Doppler duplex imaging performed of the groin, post cardiac tereso ter to assess for pseudoaneurysm. SIDE PERFORMED: Right Color and Waveform Doppler performed to assess for the presence of pseudoaneurysm; Is there evidence of AV shunting: No Within right groin there is a cystic area= 3.5 x 1.7 x 3.1 cm just adjacent to right [employer]IRS[employer]ING [employer] INSPECTOR, possibly same area as seen on CT, unable to determine if truly pseudoaneurysm due to pt moving leg during exam , possible artifact/motion color Extremely limited/difficult exam due to heavily calcified HAIRS[employer]ING II INSPECTOR, pt moving leg, unable to straighten right leg, and open, oozing wound to right groin IMPRESSION: Limited examination as noted above. Pseudoaneurysm is felt to be unlikely however follow-up study is advised. Hypoechoic collection adjacent to the common femoral artery may reflect hematoma or seroma.
[2018-01-29 18:12] LABS: Glucose,Whole Blood 122 mg/dL (75-99)
[2018-01-29] MEDS ORDERED: NALOXONE 0.4 MG/ML 1 ML VIAL IV PRN (18:49)
[2018-01-29] MEDS: LACTATED RINGERS 1,000 ML IV SCH (19:19)
[2018-01-29 21:20] LABS: Glucose,Whole Blood 150 mg/dL (75-99)
[2018-01-29] MEDS: hydrALAZINE HCL 50 MG TAB PO SCH (21:36)
[2018-01-29] MEDS: FUROSEMIDE 20 MG TAB PO SCH (21:36)
[2018-01-29] MEDS: ATORVASTATIN 10 MG TAB PO SCH (21:36)
[2018-01-29] MEDS: APIXABAN 2.5 MG TABLET PO SCH (21:36)
[2018-01-29] MEDS: DILTIAZEM ORAL 30 MG TAB PO SCH (21:37)
[2018-01-30 07:12] LABS: Glucose,Whole Blood 103 mg/dL (75-99)
[2018-01-30] MEDS ORDERED: MEROPENEM 1 GM in SODIUM CHLORIDE 0.9% 100 ML IVPB SCH (08:00)
[2018-01-30] MEDS: FAMOTIDINE 20 MG TAB PO SCH (08:15)
[2018-01-30] MEDS: hydrALAZINE HCL 50 MG TAB PO SCH ×3 (08:15→21:06)
[2018-01-30] MEDS: APIXABAN 2.5 MG TABLET PO SCH ×2 (08:16→21:05)
[2018-01-30] MEDS: ASPIRIN 81 MG PO SCH (08:16)
[2018-01-30] MEDS: glipiZIDE 10 MG TAB PO SCH ×2 (08:16→15:49)
[2018-01-30] MEDS: FUROSEMIDE 20 MG TAB PO SCH ×2 (08:16→21:06)
[2018-01-30] MEDS: ALLOPURINOL 100 MG TAB PO SCH (08:16)
[2018-01-30] MEDS: DOCUSATE 100 MG CAP PO SCH (08:16)
[2018-01-30] MEDS: MAGNESIUM OXIDE 400 MG TAB PO SCH (08:17)
[2018-01-30] MEDS: METOPROLOL SUCCINATE (ER) 100 MG TAB.ER.24H PO SCH (08:17)
[2018-01-30] MEDS: DILTIAZEM ORAL 30 MG TAB PO SCH ×3 (08:17→21:06)
[2018-01-30 11:27] LABS: Glucose,Whole Blood 89 mg/dL (75-99)
[2018-01-30] MEDS ORDERED: CEFEPIME 2 GM in SODIUM CHLORIDE 0.9% 50 ML IVPB SCH (11:30)
--- NOTE | 2018-01-30 13:04 | US ---
EXAMINATION TYPE: US venous doppler duplex LE RT DATE OF EXAM: 01/30/2018 12:42 PM COMPARISON: US CLINICAL HISTORY: r/o DVT . SIDE PERFORMED: Right TECHNIQUE: The lower extremity deep venous system is examined utilizing real time linear array sonog jeyson with graded compression, doppler sonography and color-flow sonography. VESSELS IMAGED: External Iliac Vein (EIV) Common Femoral Vein Deep Femoral Vein Greater Saphenous Vein * Femoral Vein Popliteal Vein Small Saphenous Vein * Proximal Calf Veins (* superficial vessels) Patient of large body habitus with very large legs. Right Leg: Appears negative for DVT proximally Limited evaluation. Patient has large bandage in groin. Unable to view distal femoral vein through px calf veins in compression view due to patients body habitus. Only able to view popliteal v with curv ed probe. IMPRESSION: Limited exam due to patient body habitus. No proximal deep venous thrombosis is seen.
[2018-01-30] MEDS ORDERED: VANCOMYCIN 1,500 MG in SODIUM CHLORIDE 0.9% 250 ML IVPB SCH (15:00)
--- NOTE | 2018-01-30 16:21 | P.HPIM ---
History of Present Illness H&P Date: 01/30/18 82 years old female with past medical history of hypertension and hypertensive cardiovascular disease, type 2 diabetes, hyperlipidemia, history of stasis dermatitis with bilateral lower extremity edema history of obesity with obstructive sleep apnea, history of coronary artery disease with recent heart catheterization showing mild triple-vessel coronary artery disease but severe aortic stenosis, pulmonary hypertension and calcified coronary arteries for which patient underwent TAVR on January 03 at [facility]. Patient had a follow- up in 2 weeks but has not seen his physician there yet. Patient comes in with increased greenish drainage from the cardiac catheter site for the past 1 week. Patient has visiting nurses who were concerned about the healing of the wound therefore patient came to the hospital to get admitted. Vitals are stable with afebrile temp, pulse rate 71, blood pressure 146/57. CBC suggest a hemoglobin of 7.8, WBC 9.4, creatinine 1.3, BUNs 40, patient undent Doppler lower extremity arterial which suggested a fluid collection which is followed by a pelvic CT was suggested as 6.2 into 5 cm collection of fluid which could represent a seroma or hematoma at the site of right inguinal cardiac catheter. Patient was initiated on IV antibiotics including vancomycin and Levaquin which was switched to meropenem and vancomycin. Wound culture and blood cultures sent. ESR and CRP sent Review of Systems Constitutional: Denies anorexia, Denies chills, Denies chronic pain, Denies fatigue, Denies fever, Denies lethargy, Denies night sweats, Denies poor appetite Eyes: denies blurred vision, denies diplopia, denies discharge, denies irritation, denies pain Ears, nose, mouth and throat: Denies headache, Denies nasal congestion, Denies odynophagia, Denies post-nasal drip Cardiovascular: Denies chest pain, Denies decreased exercise tolerance, Denies dyspnea on exertion, Denies high blood pressure, Denies irregular heart beat, Denies leg edema, Denies lightheadedness, Denies orthopnea, Denies palpitations , Denies shortness of breath Respiratory: Denies congestion, Denies cough, Denies cough with sputum, Denies dyspnea, Denies hemoptysis, Denies wheezing Gastrointestinal: Denies abdominal pain, Denies belching, Denies bloating, Denies change in bowel habits, Denies jaundice, Denies nausea, Denies vomiting Genitourinary: Denies dysuria, Denies nocturia, Denies urgency, Denies urinary frequency Musculoskeletal: Denies limitation of motion, Denies low back pain, Denies muscle weakness Past Medical History Past Medical History: Coronary Artery Disease (CAD), Diabetes Mellitus, GERD/ Reflux, Hyperlipidemia, Hypertension, Osteoarthritis (OA), Renal Disease Additional Past Medical History / Comment(s): USES A WALKER, LEG SWELLING, MURMUR, SINUS PROBLEMS, BENIGN POLYPS, INCONT OF URINE, PAST HX ANEMIA, "kidney function-3.5", severe aortic stenosis, patent foramen ovale History of Any Multi-Drug Resistant Organisms: None Reported Past Surgical History: Heart Catheterization, Heart Catheterization With Stent Additional Past Surgical History / Comment(s): CATARACT SURGERY, COLONOSCOPY, bisi Past Anesthesia/Blood Transfusion Reactions: No Reported Reaction Date of Last Stent Placement:: January 03, 2018 Past Psychological History: No Psychological Hx Reported Smoking Status: Former smoker Past Alcohol Use History: None Reported Additional Past Alcohol Use History / Comment(s): Patient smoked one to 2 packs per day for 40 years and quit in 1989. Past Drug Use History: None Reported - Past Family History Mother Family Medical History: CVA/TIA, Diabetes Mellitus Father Family Medical History: Cancer, Coronary Artery Disease (CAD) Brother(s) Family Medical History: CVA/TIA, Diabetes Mellitus Sister(s) Family Medical History: Dementia Son(s) Family Medical History: No Reported History Daughter(s) Family Medical History: No Reported History Medications and Allergies Home Medications Medication Instructions Recorded Confirmed Type Lovastatin [Mevacor] 40 mg PO HS 06/23/14 01/29/18 History Potassium Chloride [K-Tab ER] 10 meq PO 5XD 06/23/14 01/29/18 History hydrALAZINE HCL [Apresoline] 50 mg PO TID 12/08/16 01/29/18 History Magnesium Oxide 400 mg PO DAILY 02/17/17 01/29/18 History Allopurinol [Zyloprim] 200 mg PO DAILY 04/28/17 01/29/18 History Vitamin E Acetate [Vitamin E] 200 unit PO DAILY 11/07/17 01/29/18 History Sodium Bicarbonate Tab 325 mg PO DAILY 11/17/17 01/29/18 History Triamcinolone 0.025% Cream 1 applic TOPICAL TID 11/17/17 01/29/18 History [Kenalog 0.025% Cream] glipiZIDE XL [Glucotrol XL] 10 mg PO AC-BID 11/17/17 01/29/18 History Diltiazem HCl [Cardizem] 90 mg PO TID #90 tablet 11/23/17 01/29/18 Rx Famotidine [Pepcid] 20 mg PO DAILY #30 tab 11/23/17 01/29/18 Rx Metoprolol Succinate (ER) [Toprol 100 mg PO DAILY #30 tab.er.24h 11/23/17 Rx XL] Apixaban [Eliquis] 2.5 mg PO BID 01/29/18 01/29/18 History Ascorbic Acid [Vitamin C] 500 mg PO DAILY 01/29/18 01/29/18 History Aspirin EC [Ecotrin Low Dose] 81 mg PO DAILY 01/29/18 01/29/18 History Docusate Sodium 250mg 250 mg PO DAILY 01/29/18 01/29/18 History Furosemide [Lasix] 60 mg PO BID 01/29/18 01/29/18 History Multivitamins, Thera [Multivitamin 1 tab PO DAILY 01/29/18 01/29/18 History (formulary)] Allergies Allergy/AdvReac Type Severity Reaction Status Date / Time cephalexin monohydrate Allergy Rash/Hives Verified 01/29/18 18:34 [From Keflex] rofecoxib [From Vioxx] Allergy Unknown Verified 01/29/18 18:34 Physical Exam Vitals: Vital Signs Temp Pulse Pulse Resp BP BP Pulse Ox 01/30/18 07:06 98.9 F 77 16 133/71 95 01/30/18 01:36 98.8 F 85 17 160/67 93 L 01/29/18 23:05 20 01/29/18 20:29 98.3 F 72 18 181/67 95 01/29/18 20:10 98.7 F 80 18 148/87 98 01/29/18 19:31 98.4 F 01/29/18 19:00 54 L 18 01/29/18 17:41 98.8 F 71 16 157/74 98 01/29/18 15:06 99.3 F 69 18 98 01/29/18 14:33 99.0 F 69 18 174/73 93 L 01/29/18 13:31 97.7 F 62 18 178/92 98 Intake and Output 01/29/18 01/30/18 01/30/18 22:59 06:59 14:59 Intake Total 1200 250 Balance 1200 250 Intake: Amount of Fluid Infused ( 1200 ml) Oral 250 Other: Voiding Method Toilet Toilet Diaper # Voids 1 2 - Constitutional General appearance: average body habitus, no acute distress - EENT Eyes: EOMI, PERRLA, dentition normal - Neck Carotids: bilateral: upstroke normal Thyroid: bilateral: normal size - Respiratory Respiratory: bilateral: CTA, negative: diminished, dullness, rales - Cardiovascular Rhythm: regular Heart sounds: normal: S1, S2 Abnormal Heart Sounds: no systolic murmur, no diastolic murmur leg Peripheral Edema: right: 3+ - Gastrointestinal General gastrointestinal: no distended, soft, no tenderness - Musculoskeletal The right cardiac catheter site has serous to purulent discharge with gaping of the wound. Granulation tissue seen at the base. Patient has active discharge coming out of the wound. No redness or Not warm to touch. Musculoskeletal: strength equal bilaterally - Psychiatric Psychiatric: A&O x's 3, appropriate affect Results CBC & Chem 7: 01/29/18 14:13 01/29/18 14:13 Labs: Abnormal Lab Results - Last 24 Hours (Table) 01/29/18 01/29/18 01/29/18 Range/Units 14:13 14:13 16:00 RBC 2.66 L (3.80-5.40) m/uL Hgb 7.8 L D (11.4-16.0) gm/dL Hct 24.0 L (34.0-46.0) % BUN 40 H (7-17) mg/dL Creatinine 1.30 H (0.52-1.04) mg/dL Glucose 152 H (74-99) mg/dL POC Glucose (mg/dL) (75-99) mg/dL AST 13 L (14-36) U/L Total Protein 5.8 L (6.3-8.2) g/dL Albumin 3.3 L (3.5-5.0) g/dL Urine Protein Trace H (Negative) 04/01/29/18 01/30/18 Range/Units 18:10 21:17 06:59 RBC (3.80-5.40) m/uL Hgb (11.4-16.0) gm/dL Hct (34.0-46.0) % BUN (7-17) mg/dL Creatinine (0.52-1.04) mg/dL Glucose (74-99) mg/dL POC Glucose (mg/dL) 122 H 150 H 103 H (75-99) mg/dL AST (14-36) U/L Total Protein (6.3-8.2) g/dL Albumin (3.5-5.0) g/dL Urine Protein (Negative) Microbiology - Last 24 Hours (Table) 01/29/18 14:14 Gram Stain - Preliminary Groin Wound Culture - Preliminary 01/29/18 16:00 Urine Culture - Preliminary Urine,Catheterized Thrombosis Risk Factor Assmnt - Choose All That Apply Any of the Below Risk Factors Present?: Yes Each Factor Represents 1 point: Swollen legs (current) Other Risk Factors: Yes Each Risk Factor Represents 3 Points: Age 75 years or older Thrombosis Risk Factor Assessment Total Risk Factor Score: 4 Thrombosis Risk Factor Assessment Level: Moderate Risk Assessment and Plan Plan: 1. Active right cath site drainage with underlying 6.25 cm seroma/Hematoma though concerning for abscess. Infectious disease consulted. Continue vancomycin and meropenem. Wound culture and blood cultures sent. Patient had cardiac catheter for TAVR at [facility]. Continue wound care with wet-to-dry dressing. Surgery consult for drainage. 2. Paroxysmal atrial fibrillation with episodes of rapid ventricular response. Restart patient's home medication including metoprolol, Cardizem and Eliquis 2.5 mg twice a day 3. Severe aortic stenosis and patent foramen ovale status post TAVR on January 03. Follows Dr. Nick as outpatient 4. Chronic diastolic heart failure. Continue metoprolol 50 mg daily, Lasix 60 mg twice daily and potassium. Previous echocardiogram showed ejection fraction 50-55% with severe aortic valve stenosis. 5. Chronic kidney disease stage III. Avoid nephrotoxic agents and hypotension. Continue sodium bicarbonate 325 mg 3 times daily. Patient is continued on Lasix 60 mg twice daily. 6. Mild coronary artery disease status post left heart catheterization on November 16. Continue aspirin, continue metoprolol and statin. 7. Hyperlipidemia. Continue lovastatin 40 mg orally once every day. 8. Hypertension and hypertensive cardiovascular disease. Continue metoprolol, hydralazine 50 mg 3 times daily the. 9. Chronic stasis dermatitis, stable. 10. Obesity with possible obstructive sleep apnea. Patient will need to go for polysomnogram as an outpatient. 11. DVT prophylaxis. Eliquis 2.5 mg twice a day 12. GI prophylaxis. Continue pepcid. Patient will be admitted to the hospital for a minimum of 2 night stay. Discharge plan: Most likely return home. PT consult
[2018-01-30 17:25] LABS: Glucose,Whole Blood 91 mg/dL (75-99)
[2018-01-30] MEDS: MEROPENEM 1 GM in SODIUM CHLORIDE 0.9% 100 ML IVPB SCH (19:47)
[2018-01-30 20:39] LABS: Glucose,Whole Blood 96 mg/dL (75-99)
[2018-01-30] MEDS: ATORVASTATIN 10 MG TAB PO SCH (21:05)
[2018-01-30] MEDS: LACTATED RINGERS 1,000 ML IV SCH (21:31)
--- NOTE | 2018-01-31 00:08 | P.CONS ---
History of Present Illness - Reason for Consult Consult date: 01/30/18 - Chief Complaint Pain and drainage right groin - History of Present Illness 82-year-old female who has a history of multiple medical troubles that includes obesity, coronary artery disease, diabetes mellitus type 2, peripheral vascular disease was having difficulties with aortic valve disease. She underwent evaluation and at [facility] underwent a TAVR procedure. The procedure has been successful she's been a relatively well over the last 4 weeks. However she is now developed evidence in her right groin access site of a significant infection with purulent drainage and some necrotic fat. Because of the infection at that site the patient was brought in the hospital is without evidence of fever and she is also feeling relatively weak. Positive blood cultures have now been called in the infectious diseases consultation was requested. This pleasant woman feels quite poorly was able to sit up in the chair. She had fevers and chills and this seems to be improving. Appetite is poor. She however just relates that she feels very weak. Review of Systems 82-year-old woman who has obesity seems to be comfortable at this time with current medications. HEENT:Denies headache or acute visual change. Denies sinus or mouth discomforts. Denies neck stiffness or pain. Denies significant oral cavity pain. Denies difficulty on swallowing. Lungs: Denies significant shortness of breath, cough, sputum production, or hemoptysis. Cardiovascular: Denies significant shortness of breath, chest pain, chest wall pain, orthopnea, dyspnea on exertion, syncope Gastrointestinal:Denies nausea, vomiting, diarrhea, constipation, hematemesis, melena, hematochezia. No no significant change of bowel habit noticed. Musculoskeletal: denies significant new myalgias or arthralgias. No new joint swelling. Denies new back pain. Skin: As per the HPI ulceration to the right groin Neuro: Denies headache or visual change. Denies any new onset weakness or difficulty with ambulation. Denies falls or seizures. Psychiatric:Denies anxiety or depression. Endocrine: Significant fatigue chronic weight gain Past Medical History Past Medical History: Coronary Artery Disease (CAD), Diabetes Mellitus, GERD/ Reflux, Hyperlipidemia, Hypertension, Osteoarthritis (OA), Renal Disease Additional Past Medical History / Comment(s): USES A WALKER, LEG SWELLING, MURMUR, SINUS PROBLEMS, BENIGN POLYPS, INCONT OF URINE, PAST HX ANEMIA, "kidney function-3.5", severe aortic stenosis, patent foramen ovale History of Any Multi-Drug Resistant Organisms: None Reported Past Surgical History: Heart Catheterization, Heart Catheterization With Stent Additional Past Surgical History / Comment(s): CATARACT SURGERY, COLONOSCOPY, bisi Past Anesthesia/Blood Transfusion Reactions: No Reported Reaction Date of Last Stent Placement:: January 03, 2018 Past Psychological History: No Psychological Hx Reported Additional Psychological History / Comment(s): lives with her and the family home. Stopped smoking 20 years ago. No international travel. The experience. No animal exposures Smoking Status: Former smoker Past Alcohol Use History: None Reported Additional Past Alcohol Use History / Comment(s): Patient smoked one to 2 packs per day for 40 years and quit in 1989. Past Drug Use History: None Reported - Past Family History Mother Family Medical History: CVA/TIA, Diabetes Mellitus Father Family Medical History: Cancer, Coronary Artery Disease (CAD) Brother(s) Family Medical History: CVA/TIA, Diabetes Mellitus Sister(s) Family Medical History: Dementia Son(s) Family Medical History: No Reported History Daughter(s) Family Medical History: No Reported History Medications and Allergies Home Medications and Allergies Comment(s): Current Medications Allopurinol (Zyloprim) 200 mg PO DAILY [facility] Last Admin: 01/30/18 08:16 Dose: 200 mg Apixaban (Eliquis) 2.5 mg PO BID [facility] Last Admin: 01/30/18 21:05 Dose: 2.5 mg Aspirin (Aspirin) 81 mg PO DAILY [facility] Last Admin: 01/30/18 08:16 Dose: 81 mg Atorvastatin Calcium (Lipitor) 10 mg PO HS [facility] Last Admin: 01/30/18 21:05 Dose: 10 mg Diltiazem HCl (Cardizem Oral) 90 mg PO TID [facility] Last Admin: 01/30/18 21:06 Dose: 90 mg Docusate Sodium (Colace) 200 mg PO DAILY [facility] Last Admin: 01/30/18 08:16 Dose: 200 mg Famotidine (Pepcid) 20 mg PO DAILY [facility] Last Admin: 01/30/18 08:15 Dose: 20 mg Furosemide (Lasix) 60 mg PO BID [facility] Last Admin: 01/30/18 21:06 Dose: Not Given Glipizide (Glucotrol) 10 mg PO AC-BID [facility] Last Admin: 01/30/18 15:49 Dose: 10 mg Hydralazine HCl (Apresoline) 50 mg PO TID [facility] Last Admin: 01/30/18 21:06 Dose: 50 mg Vancomycin HCl 1,500 mg/ (Sodium Chloride) 250 mls @ 125 mls/hr IVPB Q36H [facility] Last Admin: 01/30/18 16:43 Dose: 125 mls/hr Lactated Ringer's (Lactated Ringers) 1,000 mls @ 20 mls/hr IV .Q24H [facility] Last Admin: 01/30/18 21:31 Dose: Not Given Meropenem 1 gm/ Sodium (Chloride) 100 mls @ 100 mls/hr IVPB Q12H [facility] Last Admin: 01/30/18 19:47 Dose: 100 mls/hr Magnesium Oxide (Mag-Ox) 400 mg PO DAILY@1200 [facility] Last Admin: 01/30/18 08:17 Dose: 400 mg Metoprolol Succinate (Toprol Xl) 100 mg PO DAILY [facility] Last Admin: 01/30/18 08:17 Dose: 100 mg Miscellaneous Information (Rx Info: Iv Contrast Was Given) 1 each MISCELLANE DAILY PRN PRN Reason: Per Protocol Stop: 01/31/18 14:03 Naloxone HCl (Narcan) 0.2 mg IV Q2M PRN PRN Reason: Opioid Reversal Home Medications Medication Instructions Recorded Confirmed Type Lovastatin [Mevacor] 40 mg PO HS 06/23/14 01/29/18 History Potassium Chloride [K-Tab ER] 10 meq PO 5XD 06/23/14 01/29/18 History hydrALAZINE HCL [Apresoline] 50 mg PO TID 12/08/16 01/29/18 History Magnesium Oxide 400 mg PO DAILY 02/17/17 01/29/18 History Allopurinol [Zyloprim] 200 mg PO DAILY 04/28/17 01/29/18 History Vitamin E Acetate [Vitamin E] 200 unit PO DAILY 11/07/17 01/29/18 History Sodium Bicarbonate Tab 325 mg PO DAILY 11/17/17 01/29/18 History Triamcinolone 0.025% Cream 1 applic TOPICAL TID 11/17/17 01/29/18 History [Kenalog 0.025% Cream] glipiZIDE XL [Glucotrol XL] 10 mg PO AC-BID 11/17/17 01/29/18 History Diltiazem HCl [Cardizem] 90 mg PO TID #90 tablet 11/23/17 01/29/18 Rx Famotidine [Pepcid] 20 mg PO DAILY #30 tab 11/23/17 01/29/18 Rx Metoprolol Succinate (ER) [Toprol 100 mg PO DAILY #30 tab.er.24h 11/23/17 Rx XL] Apixaban [Eliquis] 2.5 mg PO BID 01/29/18 01/29/18 History Ascorbic Acid [Vitamin C] 500 mg PO DAILY 01/29/18 01/29/18 History Aspirin EC [Ecotrin Low Dose] 81 mg PO DAILY 01/29/18 01/29/18 History Docusate Sodium 250mg 250 mg PO DAILY 01/29/18 01/29/18 History Furosemide [Lasix] 60 mg PO BID 01/29/18 01/29/18 History Multivitamins, Thera [Multivitamin 1 tab PO DAILY 01/29/18 01/29/18 History (formulary)] Allergies Allergy/AdvReac Type Severity Reaction Status Date / Time cephalexin monohydrate Allergy Rash/Hives Verified 01/29/18 18:34 [From Keflex] rofecoxib [From Vioxx] Allergy Unknown Verified 01/29/18 18:34 Physical Exam Vitals: Vital Signs Temp Pulse Resp BP Pulse Ox 01/30/18 20:00 98.2 F 68 18 137/81 95 01/30/18 14:26 98.9 F 71 16 146/55 95 01/30/18 07:06 98.9 F 77 16 133/71 95 01/30/18 01:36 98.8 F 85 17 160/67 93 L Intake and Output 01/30/18 01/30/18 01/31/18 14:59 22:59 06:59 Intake Total 660 170 Balance 660 170 Intake: IV 160 70 Lactated Ringers 1,000 ml 160 70 @ 20 mls/hr IV .Q24H [facility] Rx#:[id number] Intake, IV Titration 100 Amount Meropenem 1 gm In Sodium 100 Chloride 0.9% 100 ml @ 100 mls/hr IVPB Q12H [facility] Rx#:[id number] Oral 500 Other: Voiding Method Toilet Toilet Diaper # Voids 1 82-year-old female who has significant obesity, sitting up in the chair and seems to be modestly comfortable HEENT: Anicteric conjunctiva are pink and moist nasal mucosa grossly intact without significant lesions, there is no thrush. Neck: The neck is supple without significant lymphadenopathy or thyromegaly. Lungs: Symmetrical air entry with evidence of expiratory wheezes but no anna bronchial sounds no dullness or egophony Heart: Irregular with an audible S1 and S2 soft S4 no distinct murmur is noted no significant click or rub Abdomen: Obese Positive bowel sounds soft and nontender without palpable masses or organomegaly. There was no guarding or rebound. Extremities: The upper extremities have excellent pulses they are symmetric, no significant petechiae or telangiectasia. No splinter hemorrhages were noted. The left lower extremity has no acute abnormalities except for the chronic venous stasis. The right lower extremity also has the evidence of the chronic venous stasis with a right groin there is evidence of the extensive ulceration from the access site for the TAVR. There is fat necrosis and slough, there is evidence of some review drainage that is malodorous. There is surrounding erythema that is slightly tender Neuro: Awake alert oriented to person place and time. There are no acute new gross focal sensory motor deficits. Results CBC & Chem 7: 01/29/18 14:13 01/29/18 14:13 Labs: Abnormal Lab Results - Last 24 Hours (Table) 01/30/18 01/30/18 01/30/18 Range/Units 06:59 11:31 11:31 ESR 106 H (0-20) mm/hr POC Glucose (mg/dL) 103 H (75-99) mg/dL C-Reactive Protein 81.3 H (<10.0) mg/L Microbiology - Last 24 Hours (Table) 01/29/18 14:13 Blood Culture Gram Stain - Preliminary Blood 01/29/18 16:00 Urine Culture - Final Urine,Catheterized 01/29/18 14:14 Gram Stain - Preliminary Groin Wound Culture - Preliminary Gram Neg Bacilli 01/29/18 14:13 Blood Culture - Final Blood Laboratory Results WBC 9.4 k/uL (3.8-10.6) 01/29/18 14:13 RBC 2.66 m/uL (3.80-5.40) L 01/29/18 14:13 Hgb 7.8 gm/dL (11.4-16.0) L D 01/29/18 14:13 Hct 24.0 % (34.0-46.0) L 01/29/18 14:13 MCV 90.5 fL (80.0-100.0) 01/29/18 14:13 MCH 29.2 pg (25.0-35.0) 01/29/18 14:13 MCHC 32.3 g/dL (31.0-37.0) 01/29/18 14:13 RDW 15.5 % (11.5-15.5) 01/29/18 14:13 Plt Count 282 k/uL (150-450) 01/29/18 14:13 Neutrophils % 78 % 01/29/18 14:13 Lymphocytes % 11 % 01/29/18 14:13 Monocytes % 5 % 01/29/18 14:13 Eosinophils % 4 % 01/29/18 14:13 Basophils % 0 % 01/29/18 14:13 Neutrophils # 7.3 k/uL (1.3-7.7) 01/29/18 14:13 Lymphocytes # 1.0 k/uL (1.0-4.8) 01/29/18 14:13 Monocytes # 0.5 k/uL (0-1.0) 01/29/18 14:13 Eosinophils # 0.4 k/uL (0-0.7) 01/29/18 14:13 Basophils # 0.0 k/uL (0-0.2) 01/29/18 14:13 ESR 106 mm/hr (0-20) H 01/30/18 11:31 PT 10.5 sec (9.0-12.0) 01/29/18 14:13 INR 1.1 (<1.2) 01/29/18 14:13 APTT 25.3 sec (22.0-30.0) 01/29/18 14:13 Sodium 138 mmol/L (137-145) 01/29/18 14:13 Potassium 4.1 mmol/L (3.5-5.1) 01/29/18 14:13 Chloride 99 mmol/L (98-107) 01/29/18 14:13 Carbon Dioxide 24 mmol/L (22-30) 01/29/18 14:13 Anion Gap 15 mmol/L 01/29/18 14:13 BUN 40 mg/dL (7-17) H 01/29/18 14:13 Creatinine 1.30 mg/dL (0.52-1.04) H 01/29/18 14:13 Est GFR (CKD-EPI)AfAm 44 (>60 ml/min/1.73 sqM) 01/29/18 14:13 Est GFR (CKD-EPI)NonAf 38 (>60 ml/min/1.73 sqM) 01/29/18 14:13 Glucose 152 mg/dL (74-99) H 01/29/18 14:13 POC Glucose (mg/dL) 96 mg/dL (75-99) 01/30/18 20:33 POC Glu Rn Cardiovascular Icu Adonis Katenie 01/30/18 20:33 Plasma Lactic Acid Evgeny 0.9 mmol/L (0.7-2.0) 01/29/18 14:13 Calcium 8.7 mg/dL (8.4-10.2) 01/29/18 14:13 Total Bilirubin 0.3 mg/dL (0.2-1.3) 01/29/18 14:13 AST 13 U/L (14-36) L 01/29/18 14:13 ALT 13 U/L (9-52) 01/29/18 14:13 Alkaline Phosphatase 50 U/L (38-126) 01/29/18 14:13 C-Reactive Protein 81.3 mg/L (<10.0) H 01/30/18 11:31 Total Protein 5.8 g/dL (6.3-8.2) L 01/29/18 14:13 Albumin 3.3 g/dL (3.5-5.0) L 01/29/18 14:13 Urine Color Yellow 01/29/18 16:00 Urine Appearance Clear (Clear) 01/29/18 16:00 Urine pH 6.0 (5.0-8.0) 01/29/18 16:00 Ur Specific [place] 1.013 (1.001-1.035) 01/29/18 16:00 Urine Protein Trace (Negative) H 01/29/18 16:00 Urine Glucose (UA) Negative (Negative) 01/29/18 16:00 Urine Ketones Negative (Negative) 01/29/18 16:00 Urine Blood Negative (Negative) 01/29/18 16:00 Urine Nitrite Negative (Negative) 01/29/18 16:00 Urine Bilirubin Negative (Negative) 01/29/18 16:00 Urine Urobilinogen <2.0 mg/dL (<2.0) 01/29/18 16:00 Ur Leukocyte Esterase Negative (Negative) 01/29/18 16:00 Microbiology 01/29/18 14:13 Blood Blood Culture Gram Stain - Preliminary 01/29/18 16:00 Urine,Catheterized Urine Culture - Final 01/29/18 14:14 Groin Gram Stain - Preliminary 01/29/18 14:14 Groin Wound Culture - Preliminary Gram Neg Bacilli 01/29/18 14:13 Blood Blood Culture - Final Comments: Computed tomography scan reveals evidence of fluid collection of the right groin but no pseudoaneurysm was seen Assessment and Plan (1) Wound infection after surgery Narrative/Plan: 82-year-old female presents to the emergency center not feeling well with fever and the significant drainage that has developed to the right groin area from the site of the TAVR access. It is not a computed tomography scan has been performed without evidence of pseudoaneurysm but evidence of some abscess. Does appear to have some spontaneous drainage. Site appears to need surgical direction and the patient has been evaluated by Dr. Harmon in the past and have asked for his team to come back for another evaluation and hopefully debridement of the site. At the time of the consult antibiotic therapy was altered given that she had been at a tertiary center to meropenem and Vanco pending further culture results. There is concerned to a gram-negative at the site for which meropenem should provide coverage. Medical he dressing will be applied for now until she' s been seen by surgery. The patient's is present and asks multiple excellent questions and they are answered however cannot state absolutely that she will receive her care at our facility. If interventions are required beyond our scope may need to go back to [facility], for which the would like to avoid if possible. Follow up blood cultures have been requested Current Visit: Yes Status: Acute Code(s): T81.4XXA - INFECTION FOLLOWING A PROCEDURE, INITIAL ENCOUNTER SNOMED Code(s): 73877894 (2) S/P TAVR (transcatheter aortic valve replacement) Current Visit: Yes Status: Acute Code(s): Z95.2 - PRESENCE OF PROSTHETIC HEART VALVE SNOMED Code(s): 9277677570437 (3) Gram-negative bacteremia Current Visit: Yes Status: Acute Code(s): R78.81 - BACTEREMIA SNOMED Code( s): 159339014554
[2018-01-31 07:04] LABS: Glucose,Whole Blood 125 mg/dL (75-99)
[2018-01-31 07:34] LABS: Basophils % (A) 0 %; Eosinophils # (A) 0.4 k/uL (0-0.7); Eosinophils % (A) 6 %; HCT 22.7 % (34.0-46.0); HGB 7.1 gm/dL (11.4-16.0); Hypochromasia Slight; Lymphocytes % (A) 13 %; MCH 28.5 pg (25.0-35.0); MCHC 31.3 g/dL (31.0-37.0); MCV 91.2 fL (80.0-100.0); Mean Platelet Volume 7.8; Monocytes # (A) 0.4 k/uL (0-1.0); Monocytes % (A) 5 %; Neutrophils % (A) 75 %; Platelet Count 260 k/uL (150-450); RBC 2.48 m/uL (3.80-5.40); RDW 15.4 % (11.5-15.5); WBC 8.1 k/uL (3.8-10.6)
[2018-01-31 08:18] LABS: Calcium 8.4 mg/dL (8.4-10.2); Potassium 3.6 mmol/L (3.5-5.1)
[2018-01-31] MEDS: DILTIAZEM ORAL 30 MG TAB PO SCH ×2 (09:51→15:13)
[2018-01-31] MEDS: MEROPENEM 1 GM in SODIUM CHLORIDE 0.9% 100 ML IVPB SCH (09:51)
[2018-01-31] MEDS: ASPIRIN 81 MG PO SCH (09:52)
[2018-01-31] MEDS: FAMOTIDINE 20 MG TAB PO SCH (09:52)
[2018-01-31] MEDS: ALLOPURINOL 100 MG TAB PO SCH (09:52)
[2018-01-31] MEDS: hydrALAZINE HCL 50 MG TAB PO SCH ×2 (09:52→15:14)
[2018-01-31] MEDS: FUROSEMIDE 20 MG TAB PO SCH (09:52)
[2018-01-31] MEDS: glipiZIDE 10 MG TAB PO SCH ×2 (09:52→15:14)
[2018-01-31] MEDS: MAGNESIUM OXIDE 400 MG TAB PO SCH (09:52)
[2018-01-31] MEDS: APIXABAN 2.5 MG TABLET PO SCH (09:52)
[2018-01-31] MEDS: METOPROLOL SUCCINATE (ER) 100 MG TAB.ER.24H PO SCH (09:53)
--- NOTE | 2018-01-31 11:02 | P.GSCN ---
History of Present Illness Consult date: 01/31/18 Reason for Consult: Recent TAVR by Dr. Otero at [facility] on 02/03/2018, postoperative right groin wound infection Requesting physician: Zach Acevedo History of present illness: This is an 82-year-old female patient well known to our service as Dr. Otero performed a transcatheter aortic valve replacement on January 03, 2018 at [facility]. Apparently at the end of surgery she was had a lot of bleeding from her right femoral artery, and she was diagnosed with a femoral artery dissection. Dr. Rodriguez from vascular surgery performed a right iliofemoral bypass graft using an 8 mm [place]-Tomer graft as well as extensive femoral artery endarterectomy. Over the several weeks that she's been home she has developed an abscess at the right groin site with purulent drainage. She denies any fever and does state that she had followed up with her surgeon already. She presented to the emergency room and was admitted for evaluation and workup. She has been seen by infectious disease who placed her on meropenem and vancomycin for coverage. Wound cultures from the right groin are pending, preliminary results demonstrate gram-negative bacilli. Blood culture results are pending, preliminary results demonstrate coag-negative staph. This lady does have a history of obesity, coronary artery disease, fibrillation, chronic kidney disease, chronic anemia, type 2 diabetes mellitus, severe aortic stenosis , kidney disease, and previous tobacco dependence. Cardiothoracic surgery was consulted for treatment recommendations as this patient is known to us. Review of Systems 14 point review systems was completed and was negative except as noted. - Constitutional Reports fatigue, Reports weakness - Integumentary Reports as per HPI, Reports wounds Past Medical History Past Medical History: Coronary Artery Disease (CAD), Diabetes Mellitus, GERD/ Reflux, Hyperlipidemia, Hypertension, Osteoarthritis (OA), Renal Disease Additional Past Medical History / Comment(s): USES A WALKER, LEG SWELLING, MURMUR, SINUS PROBLEMS, BENIGN POLYPS, INCONT OF URINE, PAST HX ANEMIA, "kidney function-3.5", severe aortic stenosis, patent foramen ovale History of Any Multi-Drug Resistant Organisms: None Reported Past Surgical History: Heart Catheterization, Heart Catheterization With Stent Additional Past Surgical History / Comment(s): CATARACT SURGERY, COLONOSCOPY, bisi, TAVR 01/03/2018 Past Anesthesia/Blood Transfusion Reactions: No Reported Reaction Date of Last Stent Placement:: January 03, 2018 Past Psychological History: No Psychological Hx Reported Smoking Status: Former smoker Past Alcohol Use History: None Reported Additional Past Alcohol Use History / Comment(s): Patient smoked one to 2 packs per day for 40 years and quit in 1989. Past Drug Use History: None Reported - Past Family History Mother Family Medical History: CVA/TIA, Diabetes Mellitus Father Family Medical History: Cancer, Coronary Artery Disease (CAD) Brother(s) Family Medical History: CVA/TIA, Diabetes Mellitus Sister(s) Family Medical History: Dementia Son(s) Family Medical History: No Reported History Daughter(s) Family Medical History: No Reported History Medications and Allergies Home Medications Medication Instructions Recorded Confirmed Type Lovastatin [Mevacor] 40 mg PO HS 06/23/14 01/29/18 History Potassium Chloride [K-Tab ER] 10 meq PO 5XD 06/23/14 01/29/18 History hydrALAZINE HCL [Apresoline] 50 mg PO TID 12/08/16 01/29/18 History Magnesium Oxide 400 mg PO DAILY 02/17/17 01/29/18 History Allopurinol [Zyloprim] 200 mg PO DAILY 04/28/17 01/29/18 History Vitamin E Acetate [Vitamin E] 200 unit PO DAILY 11/07/17 01/29/18 History Sodium Bicarbonate Tab 325 mg PO DAILY 11/17/17 01/29/18 History Triamcinolone 0.025% Cream 1 applic TOPICAL TID 11/17/17 01/29/18 History [Kenalog 0.025% Cream] glipiZIDE XL [Glucotrol XL] 10 mg PO AC-BID 11/17/17 01/29/18 History Diltiazem HCl [Cardizem] 90 mg PO TID #90 tablet 11/23/17 01/29/18 Rx Famotidine [Pepcid] 20 mg PO DAILY #30 tab 11/23/17 01/29/18 Rx Metoprolol Succinate (ER) [Toprol 100 mg PO DAILY #30 tab.er.24h 11/23/17 Rx XL] Apixaban [Eliquis] 2.5 mg PO BID 01/29/18 01/29/18 History Ascorbic Acid [Vitamin C] 500 mg PO DAILY 01/29/18 01/29/18 History Aspirin EC [Ecotrin Low Dose] 81 mg PO DAILY 01/29/18 01/29/18 History Docusate Sodium 250mg 250 mg PO DAILY 01/29/18 01/29/18 History Furosemide [Lasix] 60 mg PO BID 01/29/18 01/29/18 History Multivitamins, Thera [Multivitamin 1 tab PO DAILY 01/29/18 01/29/18 History (formulary)] Allergies Allergy/AdvReac Type Severity Reaction Status Date / Time cephalexin monohydrate Allergy Rash/Hives Verified 01/29/18 18:34 [From Keflex] rofecoxib [From Vioxx] Allergy Unknown Verified 01/29/18 18:34 Surgical - Exam Vital Signs Temp Pulse Resp BP Pulse Ox 97.7 F 62 18 178/92 98 01/29/18 13:31 01/29/18 13:31 01/29/18 13:31 01/29/18 13:31 01/29/18 13:31 - General well developed, well nourished, no distress, chronically ill, obese - Eyes PERRL, normal ocular movement - ENT no hearing loss - Neck no masses, no bruits, trachea midline - Respiratory Lungs sounds diminished bilaterally. Respirations even, nonlabored. Currently on room air with oxygen saturation 93%. - Cardiovascular S1, S2 present. Irregular rate and rhythm. Palpable peripheral pulses bilaterally. Bilateral lower extremity edema present. No calf pain or tenderness noted. SCDs present. - Abdomen Abdomen: soft, non tender, bowel sounds - Genitourinary Deferred - Rectum Deferred - Integumentary Skin is warm and dry. Right groin site with open incision, there is slough present with a foul odor, covered with ABD dressing with local wound care. - Neurologic normal coordination, normal sensation - Musculoskeletal Walks with a walker. - Psychiatric oriented to time, oriented to person, oriented to place, speech is normal Results - Labs 01/31/18 06:45 01/31/18 06:45 Abnormal Lab Results - Last 24 Hours (Table) 01/30/18 01/30/18 01/31/18 Range/Units 11:31 11:31 06:45 RBC (3.80-5.40) m/uL Hgb (11.4-16.0) gm/dL Hct (34.0-46.0) % ESR 106 H (0-20) mm/hr Sodium 135 L (137-145) mmol/L BUN 41 H (7-17) mg/dL Creatinine 1.36 H (0.52-1.04) mg/dL Glucose 101 H (74-99) mg/dL POC Glucose (mg/dL) (75-99) mg/dL C-Reactive Protein 81.3 H (<10.0) mg/L 01/31/18 01/31/18 Range/Units 06:45 06:57 RBC 2.48 L (3.80-5.40) m/uL Hgb 7.1 L (11.4-16.0) gm/dL Hct 22.7 L (34.0-46.0) % ESR (0-20) mm/hr Sodium (137-145) mmol/L BUN (7-17) mg/dL Creatinine (0.52-1.04) mg/dL Glucose (74-99) mg/dL POC Glucose (mg/dL) 125 H (75-99) mg/dL C-Reactive Protein (<10.0) mg/L Microbiology - Last 24 Hours (Table) 01/29/18 14:13 Blood Culture Gram Stain - Preliminary Blood Blood Culture - Preliminary Coagulase Negative Staph 01/29/18 16:00 Urine Culture - Final Urine,Catheterized 01/29/18 14:14 Gram Stain - Preliminary Groin Wound Culture - Preliminary Gram Neg Bacilli 01/29/18 14:13 Blood Culture - Final Blood Diabetes panel 01/31/18 Range/Units 06:45 Sodium 135 L (137-145) mmol/L Potassium 3.6 (3.5-5.1) mmol/L Chloride 99 (98-107) mmol/L Carbon Dioxide 25 (22-30) mmol/L BUN 41 H (7-17) mg/dL Creatinine 1.36 H (0.52-1.04) mg/dL Glucose 101 H (74-99) mg/dL Calcium 8.4 (8.4-10.2) mg/dL Calcium panel 01/31/18 Range/Units 06:45 Calcium 8.4 (8.4-10.2) mg/dL Pituitary panel 01/31/18 Range/Units 06:45 Sodium 135 L (137-145) mmol/L Potassium 3.6 (3.5-5.1) mmol/L Chloride 99 (98-107) mmol/L Carbon Dioxide 25 (22-30) mmol/L BUN 41 H (7-17) mg/dL Creatinine 1.36 H (0.52-1.04) mg/dL Glucose 101 H (74-99) mg/dL Calcium 8.4 (8.4-10.2) mg/dL Adrenal panel 01/31/18 Range/Units 06:45 Sodium 135 L (137-145) mmol/L Potassium 3.6 (3.5-5.1) mmol/L Chloride 99 (98-107) mmol/L Carbon Dioxide 25 (22-30) mmol/L BUN 41 H (7-17) mg/dL Creatinine 1.36 H (0.52-1.04) mg/dL Glucose 101 H (74-99) mg/dL Calcium 8.4 (8.4-10.2) mg/dL - Imaging Additional studies: Lower extremity Dopplers, pelvic CT results reviewed. Assessment and Plan (1) History of hypertension Current Visit: Yes Status: Chronic Code(s): Z86.79 - PERSONAL HISTORY OF OTHER DISEASES OF THE CIRCULATORY SYSTEM SNOMED Code(s): 295120584 (2) History of hyperlipidemia Current Visit: Yes Status: Chronic Code(s): Z86.39 - PERSONAL HISTORY OF ENDO, NUTRITIONAL AND METABOLIC DISEASE SNOMED Code(s): 659877510 (3) Obesity (BMI 30.0-34.9) Current Visit: Yes Status: Chronic Code(s): E66.9 - OBESITY, UNSPECIFIED SNOMED Code(s): 054651125 (4) Tobacco dependence in remission Current Visit: No Status: Resolved Code(s): F17.201 - NICOTINE DEPENDENCE, UNSPECIFIED, IN REMISSION SNOMED Code(s): 685890720 (5) Gram-negative bacteremia Current Visit: Yes Status: Acute Code(s): R78.81 - BACTEREMIA SNOMED Code( s): 254949416271 (6) S/P TAVR (transcatheter aortic valve replacement) Current Visit: Yes Status: Acute Code(s): Z95.2 - PRESENCE OF PROSTHETIC HEART VALVE SNOMED Code(s): 3812647632398 (7) Wound infection after surgery Current Visit: Yes Status: Acute Code(s): T81.4XXA - INFECTION FOLLOWING A PROCEDURE, INITIAL ENCOUNTER SNOMED Code(s): 96127802 (8) Acute renal injury Current Visit: Yes Status: Acute Code(s): N17.9 - ACUTE KIDNEY FAILURE, UNSPECIFIED SNOMED Code(s): 10854625 (9) Anemia Current Visit: Yes Status: Acute Code(s): D64.9 - ANEMIA, UNSPECIFIED SNOMED Code(s): 477981559 (10) Diabetes Current Visit: Yes Status: Chronic Code(s): E11.9 - TYPE 2 DIABETES MELLITUS WITHOUT COMPLICATIONS SNOMED Code(s): 92998504 (11) History of atrial fibrillation Current Visit: Yes Status: Chronic Code(s): Z86.79 - PERSONAL HISTORY OF OTHER DISEASES OF THE CIRCULATORY SYSTEM SNOMED Code(s): 042723165 Plan: The patient was seen and examined at the bedside with Dr. Sears. Chart/ diagnostics were reviewed. Continue IV antibiotics per Dr. Acevedo recommendation. Medical management per primary care service. Dr. Sanchez was consulted for vascular recommendations regarding right groin. He felt she is a complex case and that she would be better served with a transfer back to [place] where Dr. Rodriguez, who knows her, can continue working with her. The patient and family would prefer she stay here in [place]. More recommendations to follow regarding wound treatment. Thank you Dr. Acevedo for this consult. We will follow with you. Time with Patient: Greater than 30
[2018-01-31 11:26] LABS: Glucose,Whole Blood 161 mg/dL (75-99)
--- NOTE | 2018-01-31 14:13 | P.GSCN ---
History of Present Illness Consult date: 01/31/18 History of present illness: This 82-year-old female with extensive past medical and surgical history who presents with a history of a TAVR followed by iliofemoral bypass performed at outside hospital in December. The patient now presented with a chief complaint of wound infection in her right groin. She states that there is a large amount of slough and drainage. She denies any fevers. There was a large fluid collection seen on CT in the right groin. Past Medical History Past Medical History: Coronary Artery Disease (CAD), Diabetes Mellitus, GERD/ Reflux, Hyperlipidemia, Hypertension, Osteoarthritis (OA), Renal Disease Additional Past Medical History / Comment(s): USES A WALKER, LEG SWELLING, MURMUR, SINUS PROBLEMS, BENIGN POLYPS, INCONT OF URINE, PAST HX ANEMIA, "kidney function-3.5", severe aortic stenosis, patent foramen ovale History of Any Multi-Drug Resistant Organisms: None Reported Past Surgical History: Heart Catheterization, Heart Catheterization With Stent Additional Past Surgical History / Comment(s): CATARACT SURGERY, COLONOSCOPY, bisi, TAVR 01/03/2018 Past Anesthesia/Blood Transfusion Reactions: No Reported Reaction Date of Last Stent Placement:: January 03, 2018 Past Psychological History: No Psychological Hx Reported Smoking Status: Former smoker Past Alcohol Use History: None Reported Additional Past Alcohol Use History / Comment(s): Patient smoked one to 2 packs per day for 40 years and quit in 1989. Past Drug Use History: None Reported - Past Family History Mother Family Medical History: CVA/TIA, Diabetes Mellitus Father Family Medical History: Cancer, Coronary Artery Disease (CAD) Brother(s) Family Medical History: CVA/TIA, Diabetes Mellitus Sister(s) Family Medical History: Dementia Son(s) Family Medical History: No Reported History Daughter(s) Family Medical History: No Reported History Medications and Allergies Home Medications Medication Instructions Recorded Confirmed Type Lovastatin [Mevacor] 40 mg PO HS 06/23/14 01/29/18 History Potassium Chloride [K-Tab ER] 10 meq PO 5XD 06/23/14 01/29/18 History hydrALAZINE HCL [Apresoline] 50 mg PO TID 12/08/16 01/29/18 History Magnesium Oxide 400 mg PO DAILY 02/17/17 01/29/18 History Allopurinol [Zyloprim] 200 mg PO DAILY 04/28/17 01/29/18 History Vitamin E Acetate [Vitamin E] 200 unit PO DAILY 11/07/17 01/29/18 History Sodium Bicarbonate Tab 325 mg PO DAILY 11/17/17 01/29/18 History Triamcinolone 0.025% Cream 1 applic TOPICAL TID 11/17/17 01/29/18 History [Kenalog 0.025% Cream] glipiZIDE XL [Glucotrol XL] 10 mg PO AC-BID 11/17/17 01/29/18 History Diltiazem HCl [Cardizem] 90 mg PO TID #90 tablet 11/23/17 01/29/18 Rx Famotidine [Pepcid] 20 mg PO DAILY #30 tab 11/23/17 01/29/18 Rx Metoprolol Succinate (ER) [Toprol 100 mg PO DAILY #30 tab.er.24h 11/23/17 Rx XL] Apixaban [Eliquis] 2.5 mg PO BID 01/29/18 01/29/18 History Ascorbic Acid [Vitamin C] 500 mg PO DAILY 01/29/18 01/29/18 History Aspirin EC [Ecotrin Low Dose] 81 mg PO DAILY 01/29/18 01/29/18 History Docusate Sodium 250mg 250 mg PO DAILY 01/29/18 01/29/18 History Furosemide [Lasix] 60 mg PO BID 01/29/18 01/29/18 History Multivitamins, Thera [Multivitamin 1 tab PO DAILY 01/29/18 01/29/18 History (formulary)] Allergies Allergy/AdvReac Type Severity Reaction Status Date / Time cephalexin monohydrate Allergy Rash/Hives Verified 01/29/18 18:34 [From Keflex] rofecoxib [From Vioxx] Allergy Unknown Verified 01/29/18 18:34 Surgical - Exam Osteopathic Statement: *. No significant issues noted on an osteopathic structural exam other than those noted in the History and Physical/Consult. Vital Signs Temp Pulse Resp BP Pulse Ox 97.7 F 62 18 178/92 98 01/29/18 13:31 01/29/18 13:31 01/29/18 13:31 01/29/18 13:31 01/29/18 13:31 - General well developed, well nourished - Eyes PERRL - Respiratory normal expansion - Abdomen Right groin wound with purulent drainage and slough. No palpable pulsatile mass appreciated Abdomen: soft, non tender - Psychiatric oriented to time, oriented to person, oriented to place Results - Labs 01/31/18 06:45 01/31/18 06:45 Abnormal Lab Results - Last 24 Hours (Table) 01/31/18 01/31/18 01/31/18 Range/Units 06:45 06:45 06:57 RBC 2.48 L (3.80-5.40) m/uL Hgb 7.1 L (11.4-16.0) gm/dL Hct 22.7 L (34.0-46.0) % Sodium 135 L (137-145) mmol/L BUN 41 H (7-17) mg/dL Creatinine 1.36 H (0.52-1.04) mg/dL Glucose 101 H (74-99) mg/dL POC Glucose (mg/dL) 125 H (75-99) mg/dL 01/31/18 Range/Units 11:24 RBC (3.80-5.40) m/uL Hgb (11.4-16.0) gm/dL Hct (34.0-46.0) % Sodium (137-145) mmol/L BUN (7-17) mg/dL Creatinine (0.52-1.04) mg/dL Glucose (74-99) mg/dL POC Glucose (mg/dL) 161 H (75-99) mg/dL Microbiology - Last 24 Hours (Table) 01/29/18 14:13 Blood Culture Gram Stain - Preliminary Blood Blood Culture - Preliminary Coagulase Negative Staph 01/29/18 16:00 Urine Culture - Final Urine,Catheterized 01/29/18 14:14 Gram Stain - Preliminary Groin Wound Culture - Preliminary Gram Neg Bacilli 01/29/18 14:13 Blood Culture - Final Blood Diabetes panel 01/31/18 Range/Units 06:45 Sodium 135 L (137-145) mmol/L Potassium 3.6 (3.5-5.1) mmol/L Chloride 99 (98-107) mmol/L Carbon Dioxide 25 (22-30) mmol/L BUN 41 H (7-17) mg/dL Creatinine 1.36 H (0.52-1.04) mg/dL Glucose 101 H (74-99) mg/dL Calcium 8.4 (8.4-10.2) mg/dL Calcium panel 01/31/18 Range/Units 06:45 Calcium 8.4 (8.4-10.2) mg/dL Pituitary panel 01/31/18 Range/Units 06:45 Sodium 135 L (137-145) mmol/L Potassium 3.6 (3.5-5.1) mmol/L Chloride 99 (98-107) mmol/L Carbon Dioxide 25 (22-30) mmol/L BUN 41 H (7-17) mg/dL Creatinine 1.36 H (0.52-1.04) mg/dL Glucose 101 H (74-99) mg/dL Calcium 8.4 (8.4-10.2) mg/dL Adrenal panel 01/31/18 Range/Units 06:45 Sodium 135 L (137-145) mmol/L Potassium 3.6 (3.5-5.1) mmol/L Chloride 99 (98-107) mmol/L Carbon Dioxide 25 (22-30) mmol/L BUN 41 H (7-17) mg/dL Creatinine 1.36 H (0.52-1.04) mg/dL Glucose 101 H (74-99) mg/dL Calcium 8.4 (8.4-10.2) mg/dL Assessment and Plan Assessment: Right groin wound infection and fluid collection near iliofemoral bypass Plan: Given the complex nature the patient's medical and surgical history I will defer to vascular and cardiothoracic surgery recommendations. Per their recommendations patient may be best served with transfer back to vascular surgeon who performed the bypass, I am agreeable to this plan. Patient is already on antibiotics per ID.
[2018-01-31 14:36] VITALS: BP 120/44; PULSE 69; RESP 16; TEMP 98.7
[2018-01-31] MEDS: DOCUSATE 100 MG CAP PO SCH (15:13)
--- NOTE | 2018-01-31 16:04 | P.DS ---
Providers Date of admission: 01/29/18 18:35 Expected date of discharge: 01/31/18 Attending physician: Erin Carolina Consults: 01/29/18 18:49 Consult Physician Stat Consulting Provider: Zach Acevedo Consult Reason/Comments: wound Do you want consulting provider notified?: Yes, Notify in am 01/30/18 21:39 Consult Physician Routine Consulting Provider: Ignacio Roach Consult Reason/Comments: Wound dehiscence, underlying fluid concerning for abscess Do you want consulting provider notified?: Yes 01/30/18 23:46 Consult Physician Routine Consulting Provider: Nicko Harmon Consult Reason/Comments: infection of right groin TAVR Do you want consulting provider notified?: Yes, Notify in am 01/31/18 08:53 Consult Physician Urgent Consulting Provider: Perez Leggett Consult Reason/Comments: right femoral artery infection, recent TAVR, ? wound vac need Do you want consulting provider notified?: Yes Primary care physician: [facility] Course: 82 years old female with past medical history of hypertension and hypertensive cardiovascular disease, type 2 diabetes, hyperlipidemia, history of stasis dermatitis with bilateral lower extremity edema history of obesity with obstructive sleep apnea, history of coronary artery disease with recent heart catheterization showing mild triple-vessel coronary artery disease but severe aortic stenosis, pulmonary hypertension and calcified coronary arteries for which patient underwent TAVR on January [address] [facility]. Patient had a follow- up in 2 weeks but has not seen his physician there yet. Patient comes in with increased greenish drainage from the cardiac catheter site for the past 1 week. Patient has visiting nurses who were concerned about the healing of the wound therefore patient came to the hospital to get admitted. Vitals are stable with afebrile temp, pulse rate 71, blood pressure 146/57. CBC suggest a hemoglobin of 7.8, WBC 9.4, creatinine 1.3, BUNs 40, patient undent Doppler lower extremity arterial which suggested a fluid collection which is followed by a pelvic CT was suggested as 6.2 into 5 cm collection of fluid which could represent a seroma or hematoma at the site of right inguinal cardiac catheter. Patient was initiated on IV antibiotics including vancomycin and Levaquin which was switched to meropenem and vancomycin. Wound culture and blood cultures sent. ESR and CRP sent 01/31: Patient underwent transcatheter aortic valve replacement on January 03, 2018 at [facility] and had a femoral artery dissection that was treated by Dr. Rodriguez from vascular surgery status post right iliofemoral bypass graft using an 8 mm [place]-Tomer graft as well as extensive femoral artery endarterectomy. Patient has been evaluated by Dr. Acevedo from infectious disease and Dr. Sears from cardiothoracic surgery and Dr. Roach from general surgery with consensus the patient should be transferred. Dr. Rodriguez was contacted and would except the patient but not as a direct admit. Subsequently Dr. Veras was contacted [facility] and he will except the patient as a direct admission to the [facility] Patient will be transferred to [facility] once all arrangements are completed. Noted hemoglobin is 7.1 from 7.8. We will not plan for any transfusion at this point but may be required at the other facility. Her BUN is 41 and creatinine 1.36 which appears to be stable for her. Discharge diagnoses: 1. Right groin wound infection and possible abscess near iliofemoral bypass. 2. Paroxysmal atrial fibrillation with episodes of rapid ventricular response. 3. Severe aortic stenosis and patent foramen ovale status post TAVR on January 03. 4. Chronic diastolic heart failure. 5. Chronic kidney disease stage III. 6. Mild coronary artery disease status post left heart catheterization on November 16. 7. Hyperlipidemia. 8. Hypertension and hypertensive cardiovascular disease. 9. Chronic stasis dermatitis, stable. 10. Obesity with possible obstructive sleep apnea. Patient will need to go for polysomnogram as an outpatient. 11. Anemia of chronic renal disease with possible component of acute blood loss anemia. Discharge plan: Patient transferred to [facility] under the care of Dr. Veras Impression and plan of care have been directed as dictated by the signing physician. Rosemarie Suarez nurse practitioner acting as scribe for signing physician. Patient Condition at Discharge: Good Plan - Discharge Summary Discharge Rx Participant: Yes New Discharge Prescriptions: No Action Lovastatin [Mevacor] 40 mg PO HS Potassium Chloride [K-Tab ER] 10 meq PO 5XD hydrALAZINE HCL [Apresoline] 50 mg PO TID Magnesium Oxide 400 mg PO DAILY Allopurinol [Zyloprim] 200 mg PO DAILY Vitamin E Acetate [Vitamin E] 200 unit PO DAILY glipiZIDE XL [Glucotrol XL] 10 mg PO AC-BID Triamcinolone 0.025% Cream [Kenalog 0.025% Cream] 1 applic TOPICAL TID Sodium Bicarbonate Tab 325 mg PO DAILY Diltiazem HCl [Cardizem] 90 mg PO TID #90 tablet Famotidine [Pepcid] 20 mg PO DAILY #30 tab Metoprolol Succinate (ER) [Toprol XL] 100 mg PO DAILY #30 tab.er.24h Apixaban [Eliquis] 2.5 mg PO BID Ascorbic Acid [Vitamin C] 500 mg PO DAILY Aspirin EC [Ecotrin Low Dose] 81 mg PO DAILY Docusate Sodium 250mg 250 mg PO DAILY Multivitamins, Thera [Multivitamin (formulary)] 1 tab PO DAILY Furosemide [Lasix] 60 mg PO BID Discharge Medication List Lovastatin [Mevacor] 40 mg PO HS 06/23/14 [History] Potassium Chloride [K-Tab ER] 10 meq PO 5XD 06/23/14 [History] hydrALAZINE HCL [Apresoline] 50 mg PO TID 12/08/16 [History] Magnesium Oxide 400 mg PO DAILY 02/17/17 [History] Allopurinol [Zyloprim] 200 mg PO DAILY 04/28/17 [History] Vitamin E Acetate [Vitamin E] 200 unit PO DAILY 11/07/17 [History] Sodium Bicarbonate Tab 325 mg PO DAILY 11/17/17 [History] Triamcinolone 0.025% Cream [Kenalog 0.025% Cream] 1 applic TOPICAL TID 11/17/17 [History] glipiZIDE XL [Glucotrol XL] 10 mg PO AC-BID 11/17/17 [History] Diltiazem HCl [Cardizem] 90 mg PO TID #90 tablet 11/23/17 [Rx] Famotidine [Pepcid] 20 mg PO DAILY #30 tab 11/23/17 [Rx] Metoprolol Succinate (ER) [Toprol XL] 100 mg PO DAILY #30 tab.er.24h 11/23/17 [ Rx] Apixaban [Eliquis] 2.5 mg PO BID 01/29/18 [History] Ascorbic Acid [Vitamin C] 500 mg PO DAILY 01/29/18 [History] Aspirin EC [Ecotrin Low Dose] 81 mg PO DAILY 01/29/18 [History] Docusate Sodium 250mg 250 mg PO DAILY 01/29/18 [History] Furosemide [Lasix] 60 mg PO BID 01/29/18 [History] Multivitamins, Thera [Multivitamin (formulary)] 1 tab PO DAILY 01/29/18 [History ] Follow up Appointment(s)/Referral(s): [facility], [NON-STAFF] - Doug Chambers MD [Primary Care Provider] - 1-2 days
[2018-01-31 16:48] LABS: Glucose,Whole Blood 177 mg/dL (75-99)
--- NOTE | 2018-01-31 22:59 | P.PN ---
Subjective Progress Note Date: 01/31/18 Principal diagnosis: Right groin abscess 82-year-old female who has a history of multiple medical troubles that includes obesity, coronary artery disease, diabetes mellitus type 2, peripheral vascular disease was having difficulties with aortic valve disease. She underwent evaluation and at [facility] underwent a TAVR procedure. The procedure has been successful she's been a relatively well over the last 4 weeks. However she is now developed evidence in her right groin access site of a significant infection with purulent drainage and some necrotic fat. Because of the infection at that site the patient was brought in the hospital is without evidence of fever and she is also feeling relatively weak. Positive blood cultures have now been called in the infectious diseases consultation was requested. This pleasant woman feels quite poorly was able to sit up in the chair. She had fevers and chills and this seems to be improving. Appetite is poor. She however just relates that she feels very weak. 01/31/2018 the patient continues to feel somewhat poorly. Continues to have drainage from the right groin area. The patient's current illnesses been discussed with cardiovascular surgery. The patient had a complex closure that was required at the time of her TVAR which did require vascular intervention and patch grafting. Objective - Vital Signs Vital signs: Vital Signs Temp 98.7 F 01/31/18 14:35 Pulse 69 01/31/18 14:35 Resp 16 01/31/18 14:35 BP 120/44 01/31/18 14:35 Pulse Ox 95 01/31/18 14:35 Intake & Output 01/31/18 01/31/18 02/01/18 06:59 18:59 06:59 Intake Total 170 620 Balance 170 620 Weight 89.7 kg Intake: IV 70 160 Lactated Ringers 1,000 ml 70 160 @ 20 mls/hr IV .Q24H OLIVIA Rx#:[id number] Intake, IV Titration 100 Amount Meropenem 1 gm In Sodium 100 Chloride 0.9% 100 ml @ 100 mls/hr IVPB Q12H OLIVIA Rx#:[id number] Oral 460 Other: Voiding Method Toilet Toilet Diaper Diaper # Voids 1 2 - Exam 82-year-old female who has significant obesity, sitting up in the chair and seems to be modestly comfortable HEENT: Anicteric conjunctiva are pink and moist nasal mucosa grossly intact without significant lesions, there is no thrush. Neck: The neck is supple without significant lymphadenopathy or thyromegaly. Lungs: Symmetrical air entry with evidence of expiratory wheezes but no anna bronchial sounds no dullness or egophony Heart: Irregular with an audible S1 and S2 soft S4 no distinct murmur is noted no significant click or rub Abdomen: Obese Positive bowel sounds soft and nontender without palpable masses or organomegaly. There was no guarding or rebound. Extremities: The upper extremities have excellent pulses they are symmetric, no significant petechiae or telangiectasia. No splinter hemorrhages were noted. The left lower extremity has no acute abnormalities except for the chronic venous stasis. The right lower extremity also has the evidence of the chronic venous stasis with a right groin there is evidence of the extensive ulceration from the access site for the TAVR. There is significant fat necrosis and slough, there is evidence of some murky drainage that is malodorous. There is surrounding erythema that is slightly tender Neuro: Awake alert oriented to person place and time. There are no acute new gross focal sensory motor deficits. - Labs CBC & Chem 7: 01/31/18 06:45 01/31/18 06:45 Labs: Abnormal Lab Results - Last 24 Hours (Table) 01/31/18 01/31/18 01/31/18 Range/Units 06:45 06:45 06:57 RBC 2.48 L (3.80-5.40) m/uL Hgb 7.1 L (11.4-16.0) gm/dL Hct 22.7 L (34.0-46.0) % Sodium 135 L (137-145) mmol/L BUN 41 H (7-17) mg/dL Creatinine 1.36 H (0.52-1.04) mg/dL Glucose 101 H (74-99) mg/dL POC Glucose (mg/dL) 125 H (75-99) mg/dL 01/31/18 01/31/18 Range/Units 11:24 16:46 RBC (3.80-5.40) m/uL Hgb (11.4-16.0) gm/dL Hct (34.0-46.0) % Sodium (137-145) mmol/L BUN (7-17) mg/dL Creatinine (0.52-1.04) mg/dL Glucose (74-99) mg/dL POC Glucose (mg/dL) 161 H 177 H (75-99) mg/dL Microbiology - Last 24 Hours (Table) 01/29/18 14:13 Blood Culture Gram Stain - Final Blood Blood Culture - Final Coagulase Negative Staph 01/29/18 14:14 Gram Stain - Preliminary Groin Wound Culture - Preliminary Proteus mirabilis 01/29/18 16:00 Urine Culture - Final Urine,Catheterized Microbiology 01/29/18 14:13 Blood Blood Culture Gram Stain - Final 01/29/18 14:13 Blood Blood Culture - Final Coagulase Negative Staph 01/29/18 14:14 Groin Gram Stain - Preliminary 01/29/18 14:14 Groin Wound Culture - Preliminary Proteus mirabilis 01/29/18 16:00 Urine,Catheterized Urine Culture - Final Laboratory Results WBC 8.1 k/uL (3.8-10.6) 01/31/18 06:45 RBC 2.48 m/uL (3.80-5.40) L 01/31/18 06:45 Hgb 7.1 gm/dL (11.4-16.0) L 01/31/18 06:45 Hct 22.7 % (34.0-46.0) L 01/31/18 06:45 MCV 91.2 fL (80.0-100.0) 01/31/18 06:45 MCH 28.5 pg (25.0-35.0) 01/31/18 06:45 MCHC 31.3 g/dL (31.0-37.0) 01/31/18 06:45 RDW 15.4 % (11.5-15.5) 01/31/18 06:45 Plt Count 260 k/uL (150-450) 01/31/18 06:45 Neutrophils % 75 % 01/31/18 06:45 Lymphocytes % 13 % 01/31/18 06:45 Monocytes % 5 % 01/31/18 06:45 Eosinophils % 6 % 01/31/18 06:45 Basophils % 0 % 01/31/18 06:45 Neutrophils # 6.0 k/uL (1.3-7.7) 01/31/18 06:45 Lymphocytes # 1.0 k/uL (1.0-4.8) 01/31/18 06:45 Monocytes # 0.4 k/uL (0-1.0) 01/31/18 06:45 Eosinophils # 0.4 k/uL (0-0.7) 01/31/18 06:45 Basophils # 0.0 k/uL (0-0.2) 01/31/18 06:45 Hypochromasia Slight 01/31/18 06:45 ESR 106 mm/hr (0-20) H 01/30/18 11:31 PT 10.5 sec (9.0-12.0) 01/29/18 14:13 INR 1.1 (<1.2) 01/29/18 14:13 APTT 25.3 sec (22.0-30.0) 01/29/18 14:13 Sodium 135 mmol/L (137-145) L 01/31/18 06:45 Potassium 3.6 mmol/L (3.5-5.1) 01/31/18 06:45 Chloride 99 mmol/L (98-107) 01/31/18 06:45 Carbon Dioxide 25 mmol/L (22-30) 01/31/18 06:45 Anion Gap 11 mmol/L 01/31/18 06:45 BUN 41 mg/dL (7-17) H 01/31/18 06:45 Creatinine 1.36 mg/dL (0.52-1.04) H 01/31/18 06:45 Est GFR (CKD-EPI)AfAm 42 (>60 ml/min/1.73 sqM) 01/31/18 06:45 Est GFR (CKD-EPI)NonAf 36 (>60 ml/min/1.73 sqM) 01/31/18 06:45 Glucose 101 mg/dL (74-99) H 01/31/18 06:45 POC Glucose (mg/dL) 177 mg/dL (75-99) H 01/31/18 16:46 POC Glu Manager Country ID 01/31/18 16:46 Plasma Lactic Acid Evgeny 0.9 mmol/L (0.7-2.0) 01/29/18 14:13 Calcium 8.4 mg/dL (8.4-10.2) 01/31/18 06:45 Total Bilirubin 0.3 mg/dL (0.2-1.3) 01/29/18 14:13 AST 13 U/L (14-36) L 01/29/18 14:13 ALT 13 U/L (9-52) 01/29/18 14:13 Alkaline Phosphatase 50 U/L (38-126) 01/29/18 14:13 C-Reactive Protein 81.3 mg/L (<10.0) H 01/30/18 11:31 Total Protein 5.8 g/dL (6.3-8.2) L 01/29/18 14:13 Albumin 3.3 g/dL (3.5-5.0) L 01/29/18 14:13 Urine Color Yellow 01/29/18 16:00 Urine Appearance Clear (Clear) 01/29/18 16:00 Urine pH 6.0 (5.0-8.0) 01/29/18 16:00 Ur Specific [place] 1.013 (1.001-1.035) 01/29/18 16:00 Urine Protein Trace (Negative) H 01/29/18 16:00 Urine Glucose (UA) Negative (Negative) 01/29/18 16:00 Urine Ketones Negative (Negative) 01/29/18 16:00 Urine Blood Negative (Negative) 01/29/18 16:00 Urine Nitrite Negative (Negative) 01/29/18 16:00 Urine Bilirubin Negative (Negative) 01/29/18 16:00 Urine Urobilinogen <2.0 mg/dL (<2.0) 01/29/18 16:00 Ur Leukocyte Esterase Negative (Negative) 01/29/18 16:00 Assessment and Plan (1) Wound infection after surgery Narrative/Plan: 82-year-old female presents to the emergency center not feeling well with fever and the significant drainage that has developed to the right groin area from the site of the TAVR access. It is not a computed tomography scan has been performed without evidence of pseudoaneurysm but evidence of some abscess. Does appear to have some spontaneous drainage. Site appears to need surgical direction and the patient has been evaluated by Dr. Harmon in the past and have asked for his team to come back for another evaluation and hopefully debridement of the site. At the time of the consult antibiotic therapy was altered given that she had been at a tertiary center to meropenem and Vanco pending further culture results. There is concerned to a gram-negative at the site for which meropenem should provide coverage. Medical he dressing will be applied for now until she' s been seen by surgery. The patient's is present and asks multiple excellent questions and they are answered however cannot state absolutely that she will receive her care at our facility. If interventions are required beyond our scope may need to go back to [facility], for which the would like to avoid if possible. Follow up blood cultures have been requested 01/31/2018 patient is stable however has a very complex wound and infection related to her right groin. Given the very complex closure in difficulties that occurred at the time of the TVAR, both cardiothoracic and vascular surgery have stated that the patient should be cared for by her surgeon at [facility]. The case was also discussed with the patient's . We have clarified that the femoral artery is right where the current infection is asked, and there is a patch on the artery. Without appropriate care the artery could erode and she could have a significant bleeding event. The cardiothoracic surgeon at [facility] 's help with the arrangements for the patient to be transferred to [facility] for evaluation and debridement by the vascular surgeon who performed the procedure. Fortunately this time the blood culture does appear to be a coagulase-negative staph which is very important first because she does have a aortic valve repair and secondly there could be endovascular infection at the right femoral site. The presence of the coag negative staph will most likely indicating contamination and follow cultures are in process and negative so far. She does have gram-negative bacilli at the right groin wound site for which meropenem is being utilized until further culture data is available. We'll continue vancomycin for now until all cultures are finalized. She would likely transfer in the next short period of time to [place]. Status: Acute Code(s): T81.4XXA - INFECTION FOLLOWING A PROCEDURE, INITIAL ENCOUNTER SNOMED Code(s): 88263053 (2) S/P TAVR (transcatheter aortic valve replacement) Status: Acute Code(s): Z95.2 - PRESENCE OF PROSTHETIC HEART VALVE SNOMED Code(s): 2401201796297 (3) Gram-negative bacteremia Status: Acute Code(s): R78.81 - BACTEREMIA SNOMED Code(s): 252289636997
== END 2018-01-31 18:30 | disposition other institution (70) | DRG 863 ==
LOC: EC 13:24 → 3SUR 18:35
PROVIDERS: ADMIT Internal Medicine; ATTEND Internal Medicine
DX: T81.4XXA Infection following a procedure, initial encounter (principal); I13.0 Hypertensive heart and chronic kidney disease with heart failure and stage 1 through stage 4 chronic kidney disease, or unspecified chronic kidney disease; I50.32 Chronic diastolic (congestive) heart failure; N17.9 Acute kidney failure, unspecified; R78.81 Bacteremia; L02.214 Cutaneous abscess of groin; I25.10 Atherosclerotic heart disease of native coronary artery without angina pectoris; K21.9 Gastro-esophageal reflux disease without esophagitis; E78.5 Hyperlipidemia, unspecified; M19.90 Unspecified osteoarthritis, unspecified site; E11.22 Type 2 diabetes mellitus with diabetic chronic kidney disease; N18.3 Chronic kidney disease, stage 3 (moderate); G47.33 Obstructive sleep apnea (adult) (pediatric); Y84.0 Cardiac catheterization as the cause of abnormal reaction of the patient, or of later complication, without mention of misadventure at the time of the procedure; Y71.3 Surgical instruments, materials and cardiovascular devices (including sutures) associated with adverse incidents; Y92.234 Operating room of hospital as the place of occurrence of the external cause; I48.0 Paroxysmal atrial fibrillation; D63.1 Anemia in chronic kidney disease; I87.2 Venous insufficiency (chronic) (peripheral); E66.9 Obesity, unspecified; B96.89 Other specified bacterial agents as the cause of diseases classified elsewhere; I27.20 Pulmonary hypertension, unspecified; F17.201 Nicotine dependence, unspecified, in remission; Z95.5 Presence of coronary angioplasty implant and graft; Z82.49 Family history of ischemic heart disease and other diseases of the circulatory system; Z83.3 Family history of diabetes mellitus; Z79.84 Long term (current) use of oral hypoglycemic drugs; Z79.82 Long term (current) use of aspirin; Z79.01 Long term (current) use of anticoagulants; Z79.899 Other long term (current) drug therapy; Z98.890 Other specified postprocedural states; Z88.1 Allergy status to other antibiotic agents; Z88.8 Allergy status to other drugs, medicaments and biological substances; Z68.34 Body mass index [BMI] 34.0-34.9, adult; Z95.828 Presence of other vascular implants and grafts
CPT/HCPCS: 36415; 72192; 80048; 80053; 81003; 83605; 85025; 85610; 85652; 85730; 86140; 87040; 87070; 87077; 87086; 87186; 87205; 93005; 93975; 96365; 96366; 96368; 99285

== ENCOUNTER → 2018-05-01 | Outpatient (CLI) | payer MEDICARE ==
[2018-05-01 13:29] LABS: Anisocytosis Slight; HCT 30.7 % (34.0-46.0); HGB 9.9 gm/dL (11.4-16.0); MCH 28.8 pg (25.0-35.0); MCHC 32.2 g/dL (31.0-37.0); MCV 89.3 fL (80.0-100.0); Mean Platelet Volume 7.5; Platelet Count 252 k/uL (150-450); RBC 3.43 m/uL (3.80-5.40); RDW 16.4 % (11.5-15.5)
[2018-05-01 13:35] LABS: Appearance,Urine Cloudy (Clear); Bilirubin,Urine Negative (Negative); Blood,Urine Negative (Negative); Color,Urine Yellow; Glucose,Urine (UA) Negative (Negative); Ketones,Urine Negative (Negative); Leukocyte Esterase,Urine Trace (Negative); Mucus,Urine Rare /hpf; Nitrite,Urine Negative (Negative); Protein,Urine 1+ (Negative); Specific Gravity,Urine 1.012 (1.001-1.035); Squamous Epithelial Cell,Urine 3 /hpf (0-4); Urobilinogen,Urine <2.0 mg/dL (<2.0); WBC,Urine 2 /hpf (0-5)
[2018-05-01 13:52] LABS: Albumin 3.9 g/dL (3.5-5.0); Calcium 9.1 mg/dL (8.4-10.2); Phosphorus 4.4 mg/dL (2.5-4.5); Potassium 4.2 mmol/L (3.5-5.1); Total Bilirubin 0.3 mg/dL (0.2-1.3); Total Protein 6.6 g/dL (6.3-8.2); Uric Acid 5.5 mg/dL (3.7-7.4)
[2018-05-01 19:48] LABS: Iron Saturation 23.7 (12.00-45.00)
[2018-05-01 19:56] LABS: Parathyroid Hormone Intact 49.8 pg/mL (14.0-72.0)
[2018-05-01 19:57] LABS: Vitamin D 25 Hydroxy 24.5 ng/mL (30.0-100.0)
== END | disposition home or self-care (01) ==
LOC: LABWHC1 12:24
PROVIDERS: ATTEND Nurse Practitioner Family
DX: N18.3 Chronic kidney disease, stage 3 (moderate) (principal); D63.1 Anemia in chronic kidney disease; N39.0 Urinary tract infection, site not specified; D50.9 Iron deficiency anemia, unspecified; N25.81 Secondary hyperparathyroidism of renal origin; E55.9 Vitamin D deficiency, unspecified; M10.9 Gout, unspecified
CPT/HCPCS: 36415; 80053; 81001; 82043; 82306; 82570; 82728; 83540; 83550; 83735; 83970; 84100; 84550; 85027

== ENCOUNTER → 2018-05-29 | Outpatient (CLI) | payer MEDICARE ==
--- NOTE | 2018-05-30 13:58 | MM ---
Reason for exam: screening (asymptomatic). Last mammogram was performed 1 year ago. History: Patient is postmenopausal. Physical Findings: A clinical breast exam by your physician is recommended on an annual basis and results should be correlated with mammographic findings. MG Screening Mammo w CAD Bilateral CC and MLO view(s) were taken. XCCL view(s) were taken of the right breast. Prior study comparison: May 18, 2017, bilateral MG screening mammo w CAD. May 14, 2016, bilateral MG screening mammo w CAD. There are scattered fibroglandular densities. No significant changes when compared with prior studies. ASSESSMENT: Benign, BI-RAD 2 RECOMMENDATION: Routine screening mammogram of both breasts in 1 year.
== END | disposition home or self-care (01) ==
LOC: RADMAMWWP 11:04
PROVIDERS: ATTEND Internal Medicine
DX: Z12.31 Encounter for screening mammogram for malignant neoplasm of breast (principal)
CPT/HCPCS: 77067

== ENCOUNTER → 2018-07-27 | Outpatient (CLI) | payer MEDICARE ==
[2018-07-27 11:35] LABS: Albumin 3.7 g/dL (3.5-5.0); Calcium 9.2 mg/dL (8.4-10.2); Potassium 4.5 mmol/L (3.5-5.1); Total Bilirubin 0.4 mg/dL (0.2-1.3); Total Protein 6.8 g/dL (6.3-8.2)
== END | disposition home or self-care (01) ==
LOC: LABWHC1 10:31
PROVIDERS: ATTEND Internal Medicine Interventional Cardiology
DX: E78.2 Mixed hyperlipidemia (principal)
CPT/HCPCS: 36415; 80053; 80061

== ENCOUNTER → 2019-05-08 | Outpatient (CLI) | payer MEDICARE ==
[2019-05-08 17:34] LABS: African American GFR (CKD) 33.9 (60.0-200.0); Albumin 3.9 g/dL (3.80-4.90); Albumin/Globulin Ratio 1.95 (1.60-3.17); BUN/Creat Ratio 23.13 Ratio (12.00-20.00); Calcium 8.9 mg/dL (8.7-10.3); LDL Cholesterol,Calculated 72.4 mg/dL (0.0-131.0); Total Bilirubin 0.2 mg/dL (0.2-1.2); Total Protein 5.9 g/dL (6.2-8.2); VLDL Calculation 33.6 mg/dL (5.00-40.00)
== END | disposition home or self-care (01) ==
LOC: LABWHC1 10:05
PROVIDERS: ATTEND Internal Medicine Interventional Cardiology
DX: E78.2 Mixed hyperlipidemia (principal)
CPT/HCPCS: 36415; 80053; 80061

== ENCOUNTER → 2019-11-23 | Outpatient (CLI) | payer MEDICARE ==
[2019-11-23 17:23] LABS: African American GFR (CKD) 43.3 (60.0-200.0); Albumin 3.9 g/dL (3.80-4.90); Albumin/Globulin Ratio 1.95 (1.60-3.17); Anion Gap 8.1 mmol/L (4.00-12.00); BUN/Creat Ratio 20.77 Ratio (12.00-20.00); Calcium 8.9 mg/dL (8.7-10.3); Carbon Dioxide 25.9 mmol/L (21.6-31.8); Chol/HDL Ratio 3.24; LDL Cholesterol,Calculated 65.4 mg/dL (0.0-131.0); Non-African American GFR(CKD) 37.4 (60.0-200.0); Potassium 4.6 mmol/L (3.5-5.5); Total Bilirubin 0.3 mg/dL (0.2-1.2); Total Protein 5.9 g/dL (6.2-8.2); VLDL Calculation 26.6 mg/dL (5.00-40.00)
== END | disposition home or self-care (01) ==
LOC: LABWHC1 10:08
PROVIDERS: ATTEND Internal Medicine Interventional Cardiology
DX: E78.2 Mixed hyperlipidemia (principal)
CPT/HCPCS: 36415; 80053; 80061

== ENCOUNTER → 2020-03-06 | Outpatient (CLI) | payer MEDICARE ==
[2020-03-06 13:16] LABS: HGB 10.3 gm/dL (11.4-16.0); MCHC 32.1 g/dL (31.0-37.0); MCV 99.6 fL (80.0-100.0); Platelet Count 246 k/uL (150-450); RBC 3.21 m/uL (3.80-5.40); RDW 13.4 % (11.5-15.5); WBC 7.2 k/uL (3.8-10.6)
[2020-03-06 13:36] LABS: Appearance,Urine Turbid (Clear); Bacteria,Urine Many /hpf; Bilirubin,Urine Negative (Negative); Blood,Urine Negative (Negative); Color,Urine Yellow; Glucose,Urine (UA) Negative (Negative); Ketones,Urine Negative (Negative); Leukocyte Esterase,Urine Large (Negative); Nitrite,Urine Negative (Negative); Protein,Urine 1+ (Negative); RBC,Urine 2 /hpf (0-5); Specific Gravity,Urine 1.015 (1.001-1.035); Squamous Epithelial Cell,Urine 4 /hpf (0-4); Urobilinogen,Urine <2.0 mg/dL (<2.0); WBC,Urine >182 /hpf (0-5)
[2020-03-06 20:12] LABS: % Iron Saturation 28.88 (12.00-45.00); African American GFR (CKD) 25.7 (60.0-200.0); Albumin 3.9 g/dL (3.80-4.90); Albumin/Globulin Ratio 1.63 (1.60-3.17); Anion Gap 6.2 mmol/L (4.00-12.00); BUN/Creat Ratio 21.5 Ratio (12.00-20.00); Carbon Dioxide 28.8 mmol/L (21.6-31.8); Globulin 2.4 g/dL (1.6-3.3); Magnesium 2.3 mg/dL (1.5-2.4); Non-African American GFR(CKD) 22.2 (60.0-200.0); Phosphorus 4.9 mg/dL (2.4-5.1); Potassium 4.2 mmol/L (3.5-5.5); Total Bilirubin 0.3 mg/dL (0.3-1.2); Total Protein 6.3 g/dL (6.2-8.2)
[2020-03-06 21:47] LABS: Urine Creatinine 69.8 mg/dL
== END | disposition home or self-care (01) ==
LOC: LABWHC1 11:42
PROVIDERS: ATTEND Nurse Practitioner Family
DX: N18.3 Chronic kidney disease, stage 3 (moderate) (principal); D64.9 Anemia, unspecified; N39.0 Urinary tract infection, site not specified; E55.9 Vitamin D deficiency, unspecified; E21.3 Hyperparathyroidism, unspecified
CPT/HCPCS: 36415; 80053; 81001; 82043; 82306; 82570; 82728; 83540; 83550; 83735; 83970; 84100; 85027

== ENCOUNTER → 2020-05-26 | Outpatient (CLI) | payer MEDICARE ==
[2020-05-26 16:19] LABS: African American GFR (CKD) 39.6 (60.0-200.0); Albumin 3.9 g/dL (3.80-4.90); Albumin/Globulin Ratio 1.77 (1.60-3.17); Anion Gap 9.3 mmol/L (4.00-12.00); BUN/Creat Ratio 17.14 Ratio (12.00-20.00); Carbon Dioxide 25.7 mmol/L (21.6-31.8); Chol/HDL Ratio 2.41; Globulin 2.2 g/dL (1.6-3.3); LDL Cholesterol,Calculated 72.6 mg/dL (0.0-131.0); Non-African American GFR(CKD) 34.2 (60.0-200.0); Potassium 4.1 mmol/L (3.5-5.5); Total Bilirubin 0.5 mg/dL (0.2-1.2); Total Protein 6.1 g/dL (6.2-8.2); VLDL Calculation 13.4 mg/dL (5.00-40.00)
== END | disposition home or self-care (01) ==
LOC: LABWHC1 09:31
PROVIDERS: ATTEND Internal Medicine Interventional Cardiology
DX: E78.2 Mixed hyperlipidemia (principal)
CPT/HCPCS: 36415; 80053; 80061

== ENCOUNTER → 2020-06-05 | Outpatient (CLI) | payer MEDICARE ==
[2020-06-05 15:46] LABS: HCT 32.2 % (34.0-46.0); HGB 10.4 gm/dL (11.4-16.0); MCHC 32.2 g/dL (31.0-37.0); MCV 96.3 fL (80.0-100.0); Mean Platelet Volume 8.1; Platelet Count 287 k/uL (150-450); RBC 3.34 m/uL (3.80-5.40); RDW 13.9 % (11.5-15.5); WBC 8.9 k/uL (3.8-10.6)
[2020-06-05 15:48] LABS: Appearance,Urine Clear (Clear); Bilirubin,Urine Negative (Negative); Blood,Urine Negative (Negative); Color,Urine Yellow; Glucose,Urine (UA) Negative (Negative); Ketones,Urine Negative (Negative); Leukocyte Esterase,Urine Negative (Negative); Nitrite,Urine Negative (Negative); PH, Urine 7.5 (5.0-8.0); Protein,Urine Negative (Negative); Specific Gravity,Urine 1.008 (1.001-1.035); Urobilinogen,Urine <2.0 mg/dL (<2.0)
[2020-06-05 23:26] LABS: Urine Creatinine 36.4 mg/dL
[2020-06-06 01:26] LABS: % Iron Saturation 21.4 (12.00-45.00); African American GFR (CKD) 33.7 (60.0-200.0); Albumin 3.9 g/dL (3.80-4.90); Albumin/Globulin Ratio 1.63 (1.60-3.17); Anion Gap 11.1 mmol/L (4.00-12.00); BUN/Creat Ratio 21.88 Ratio (12.00-20.00); Calcium 8.9 mg/dL (8.7-10.3); Carbon Dioxide 21.9 mmol/L (21.6-31.8); Globulin 2.4 g/dL (1.6-3.3); Magnesium 2.1 mg/dL (1.5-2.4); Non-African American GFR(CKD) 29.1 (60.0-200.0); Phosphorus 4.6 mg/dL (2.4-5.1); Potassium 4.9 mmol/L (3.5-5.5); Total Bilirubin 0.3 mg/dL (0.2-1.2); Total Protein 6.3 g/dL (6.2-8.2); Uric Acid 6.5 mg/dL (2.9-7.7)
[2020-06-06 01:33] LABS: Ferritin 124.7 ng/mL (10.0-291.0)
[2020-06-06 03:29] LABS: Hepatitis A Antibody IgM Non-Reactive (Non-Reactive); Hepatitis B Core IgM Non-Reactive (Non-Reactive); Hepatitis B Surface Antigen Non-Reactive (Non-Reactive); Hepatitis C IgG Antibody Non-Reactive (Non-Reactive)
[2020-06-06 07:28] LABS: DNA Double-Stranded NEGATIVE (NEGATIVE)
[2020-06-06 08:01] LABS: Free Kappa Lt Chain Qnt, Serum 6.01 mg/dL (0.33-1.94)
[2020-06-06 08:53] LABS: Complement C3 99.7 mg/dL (80.0-207.0)
[2020-06-06 11:00] LABS: ANA Pattern Nucleolar
[2020-06-06 14:35] LABS: C-ANCA <1:20 Titer (<1:20)
== END | disposition home or self-care (01) ==
LOC: LABWHC1 14:43
PROVIDERS: ATTEND Internal Medicine
DX: M10.9 Gout, unspecified (principal); E55.9 Vitamin D deficiency, unspecified; N18.3 Chronic kidney disease, stage 3 (moderate)
CPT/HCPCS: 36415; 80053; 80074; 81003; 82043; 82306; 82570; 82728; 83516; 83540; 83550; 83735; 83883; 83970; 84100; 84166; 84550; 85027; 86038; 86039; 86160; 86162; 86225; 86255; 86334

== ENCOUNTER 2020-07-21 19:55 | Inpatient (IN) | payer MEDICARE ==
[2020-07-21] MEDS ORDERED: MORPHINE SULFATE 4 MG/ML SYRINGE IV STA (20:33)
[2020-07-21] MEDS ORDERED: SODIUM CHLORIDE 0.9% 1,000 ML IV STA (20:34)
--- NOTE | 2020-07-21 20:37 | ED ---
General Adult HPI - General Chief complaint: Extremity Injury, Lower Stated complaint: Fall Time Seen by Provider: 07/21/20 19:59 Source: patient, family, EMS Mode of arrival: EMS Limitations: no limitations - History of Present Illness Initial comments: Dictation was produced using [employer] dictation software. please excuse any grammatical, word or spelling errors. This patient was cared for during a federal and state declared state of emergency secondary to Covid 19 Chief Complaint: 84-year-old feel presents with right hip pain History of Present Illness: An 84-year-old female she presents with right hip pain. At dinner patient fell out of her chair. She landed on her right hip. After the fall she noticed intense pain to her right hip. She denies any numbness 22 her right lower extremity. Lites at this time. She reports she did not strike her head or lose any consciousness. She takes apixaban. The ROS documented in this emergency department record has been reviewed and confirmed by me. Those systems with pertinent positive or negative responses have been documented in the HPI. All other systems are other negative and/or noncontributory. PHYSICAL EXAM: General Impression: Alert and oriented x3, not in acute distress HEENT: Normocephalic atraumatic, extra-ocular movements intact, pupils equal and reactive to light bilaterally, mucous membranes moist. Cardiovascular: Heart regular rate and rhythm Chest: Able to complete full sentences, no retractions, no tachypnea Abdomen: abdomen soft, non-tender, non-distended, no organomegaly Musculoskeletal: Pulses present and equal in all extremities, no peripheral edema Right lower leg: Shortened and externally rotated right lower extremity Motor: no focal deficits noted Neurological: CN II-XII grossly intact, no focal motor or sensory deficits noted Skin: Intact with no visualized rashes Psych: Normal affect and mood ED course: 84-year-old female presents with right hip pain after fall. Vital signs upon arrival are within acceptable limits. Laboratory evaluation obtained. Hemoglobin 9.7. This appears to be patient's baseline. Coag panel on metabolic panel is unremarkable. Brain CT is unremarkable hip x-ray shows acute intertrochanteric fracture of the right femur. Chest x-ray is nonacute. Case discussed with the branch was taking phone calls for on-call orthopedic surgeon Dr. Betts. The branch is excepting a patient to be admitted to their orthopedic surgery service with consultations to medicine and cardiology. - Related Data Home Medications Medication Instructions Recorded Confirmed Lovastatin [Mevacor] 20 mg PO HS 06/23/14 05/12/20 Potassium Chloride [K-Tab ER] 10 meq PO BID 06/23/14 05/12/20 hydrALAZINE HCL [Apresoline] 75 mg PO TID 12/08/16 05/12/20 Magnesium Oxide 400 mg PO DAILY 02/17/17 05/12/20 allopurinoL [Zyloprim] 200 mg PO DAILY 04/28/17 05/12/20 Vitamin E Acetate [Vitamin E] 200 unit PO DAILY 11/07/17 05/12/20 Sodium Bicarbonate Tab 325 mg PO DAILY 11/17/17 05/12/20 glipiZIDE XL [Glucotrol XL] 10 mg PO AC-BID 11/17/17 05/12/20 Apixaban [Eliquis] 2.5 mg PO BID 01/29/18 05/12/20 Ascorbic Acid [Vitamin C] 500 mg PO DAILY 01/29/18 05/12/20 Furosemide [Lasix] 120 mg PO DIRECTED PRN 01/29/18 05/12/20 Multivitamins, Thera [Multivitamin 1 tab PO DAILY 01/29/18 05/12/20 (formulary)] Cholecalciferol (Vitamin D3) 50,000 unit PO Q30D 09/12/18 05/12/20 [Vitamin D3] Ergocalciferol (Vitamin D2) 50,000 unit PO WEEKLY 10/12/18 05/12/20 [Vitamin D2] Diltiazem HCl [Cardizem] 90 mg PO BID 02/07/19 05/12/20 Clindamycin [Cleocin] 150 mg PO Q6HR 08/01/19 05/12/20 Previous Rx's Medication Instructions Recorded Famotidine [Pepcid] 20 mg PO DAILY #30 tab 11/23/17 Metoprolol Succinate (ER) [Toprol 100 mg PO DAILY #30 tab.er.24h 11/23/17 XL] Allergies Allergy/AdvReac Type Severity Reaction Status Date / Time cephalexin monohydrate Allergy Rash/Hives Verified 07/21/20 20:06 [From Keflex] rofecoxib [From Vioxx] Allergy Unknown Verified 07/21/20 20:06 doxycycline [From Vibramycin] AdvReac Nausea & Verified 07/21/20 20:06 Vomiting Review of Systems ROS Statement: Those systems with pertinent positive or pertinent negative responses have been documented in the HPI. ROS Other: All systems not noted in ROS Statement are negative. Past Medical History Past Medical History: Coronary Artery Disease (CAD), Cancer, Diabetes Mellitus, GERD/Reflux, Hyperlipidemia, Hypertension, Osteoarthritis (OA), Renal Disease Additional Past Medical History / Comment(s): USES A WALKER, LEG SWELLING, MURMUR, SINUS PROBLEMS, BENIGN POLYPS, INCONT OF URINE, PAST HX ANEMIA, "kidney function-3.5", severe aortic stenosis, patent foramen ovale. SKIN CANCER History of Any Multi-Drug Resistant Organisms: None Reported Past Surgical History: Heart Catheterization, Heart Catheterization With Stent Additional Past Surgical History / Comment(s): CATARACT SURGERY, COLONOSCOPY, bisi, TAVR 01/03/2018. "STENT IN [facility]". Past Anesthesia/Blood Transfusion Reactions: No Reported Reaction Date of Last Stent Placement:: January 03, 2018 Past Psychological History: No Psychological Hx Reported Smoking Status: Former smoker Past Alcohol Use History: None Reported Past Drug Use History: None Reported - Past Family History Mother Family Medical History: CVA/TIA, Diabetes Mellitus Father Family Medical History: Cancer, Coronary Artery Disease (CAD) Brother(s) Family Medical History: CVA/TIA, Diabetes Mellitus Sister(s) Family Medical History: Dementia Son(s) Family Medical History: No Reported History Daughter(s) Family Medical History: No Reported History General Exam Limitations: no limitations Course Vital Signs 07/21/20 07/21/20 19:59 21:06 Temperature 98 F Pulse Rate 72 70 Respiratory 20 20 Rate Blood Pressure 183/60 164/53 O2 Sat by Pulse 97 97 Oximetry Medical Decision Making - Lab Data Result diagrams: 07/21/20 20:38 07/21/20 20:38 Lab Results 07/21/20 07/21/20 07/21/20 Range/Units 20:38 20:38 20:38 WBC 8.5 (3.8-10.6) k/uL RBC 3.06 L (3.80-5.40) m/uL Hgb 9.7 L (11.4-16.0) gm/dL Hct 29.5 L (34.0-46.0) % MCV 96.5 (80.0-100.0) fL MCH 31.6 (25.0-35.0) pg MCHC 32.7 (31.0-37.0) g/dL RDW 14.0 (11.5-15.5) % Plt Count 211 (150-450) k/uL Neutrophils % 78 % Lymphocytes % 11 % Monocytes % 6 % Eosinophils % 3 % Basophils % 1 % Neutrophils # 6.6 (1.3-7.7) k/uL Lymphocytes # 0.9 L (1.0-4.8) k/uL Monocytes # 0.5 (0-1.0) k/uL Eosinophils # 0.3 (0-0.7) k/uL Basophils # 0.0 (0-0.2) k/uL PT 9.7 (9.0-12.0) sec INR 0.9 (<1.2) APTT 23.8 (22.0-30.0) sec Sodium 136 L (137-145) mmol/L Potassium 4.5 (3.5-5.1) mmol/L Chloride 108 H (98-107) mmol/L Carbon Dioxide 22 (22-30) mmol/L Anion Gap 6 mmol/L BUN 37 H (7-17) mg/dL Creatinine 1.29 H (0.52-1.04) mg/dL Est GFR (CKD-EPI)AfAm 44 (>60 ml/min/1.73 sqM) Est GFR (CKD-EPI)NonAf 38 (>60 ml/min/1.73 sqM) Glucose 93 (74-99) mg/dL Calcium 8.5 (8.4-10.2) mg/dL Disposition Clinical Impression: Hip fracture Disposition: ADMITTED IP TO THIS [facility] Condition: Fair Referrals: Orion Bose MD [Primary Care Provider] - 1-2 days Decision Time: 21:56
[2020-07-21 20:49] LABS: Basophils % (A) 1 %; Eosinophils # (A) 0.3 k/uL (0-0.7); Eosinophils % (A) 3 %; HCT 29.5 % (34.0-46.0); HGB 9.7 gm/dL (11.4-16.0); Lymphocytes # (A) 0.9 k/uL (1.0-4.8); Lymphocytes % (A) 11 %; MCH 31.6 pg (25.0-35.0); MCHC 32.7 g/dL (31.0-37.0); MCV 96.5 fL (80.0-100.0); Mean Platelet Volume 7.7; Monocytes # (A) 0.5 k/uL (0-1.0); Monocytes % (A) 6 %; Neutrophils # (A) 6.6 k/uL (1.3-7.7); Neutrophils % (A) 78 %; Platelet Count 211 k/uL (150-450); RBC 3.06 m/uL (3.80-5.40); WBC 8.5 k/uL (3.8-10.6)
[2020-07-21 20:59] LABS: INR 0.9 (<1.2); Partial Thromboplastin Time 23.8 sec (22.0-30.0); Prothrombin Time 9.7 sec (9.0-12.0)
--- NOTE | 2020-07-21 21:09 | XR ---
EXAMINATION TYPE: XR Hip RT and AP Pelvis DATE OF EXAM: 07/21/2020 COMPARISON: NONE HISTORY: Right hip pain TECHNIQUE: 3 views FINDINGS: The pelvic ring is intact. There is moderate osteoarthritis in both hip joints. There is an acute intertrochanteric fracture right femur. There is no significant displacement. Sacroiliac joint s are intact. There is vascular calcification. IMPRESSION: Acute intertrochanteric fracture of the right femur. Moderate osteoarthritis in the hip j oints.
--- NOTE | 2020-07-21 21:12 | XR ---
EXAMINATION TYPE: XR chest 1V DATE OF EXAM: 07/21/2020 COMPARISON: 12/26/2017 HISTORY: Preop TECHNIQUE: Single view FINDINGS: Heart is enlarged. There is coarse pulmonary interstitial density throughout the lungs. The re is slight blunting of the costophrenic angles. IMPRESSION: Pulmonary interstitial density consistent with pulmonary fibrosis. Cardiomegaly. Mild hea rt failure not entirely excluded. Lung markings increased compared to old exam.
[2020-07-21 21:20] LABS: Calcium 8.5 mg/dL (8.4-10.2); Potassium 4.5 mmol/L (3.5-5.1)
--- NOTE | 2020-07-21 21:53 | CT ---
EXAMINATION TYPE: CT brain wo con DATE OF EXAM: 07/21/2020 COMPARISON: None HISTORY: pt fall CT DLP: 1095.4 mGycm Automated exposure control for dose reduction was used. There is cerebral cortical atrophy. There is no mass effect nor midline shift. There is no sign of in tracranial hemorrhage. Calvarium is intact. There is mild hypodensity around the frontal and occipita l horns of the lateral ventricles. IMPRESSION: Mild cerebral atrophy. Minimal chronic small vessel ischemia. No acute intracranial abnormality.
[2020-07-21] MEDS ORDERED: MORPHINE SULFATE 4 MG/ML SYRINGE IV PRN (21:56)
[2020-07-21] MEDS ORDERED: ONDANSETRON 4 MG/2 ML VIAL IVP PRN (21:56)
[2020-07-21] MEDS ORDERED: NALOXONE 0.4 MG/ML 1 ML VIAL IV PRN (21:56)
[2020-07-21] MEDS: HYDROcodone/APAP 5-325MG 1 EACH TAB PO PRN (22:01)
[2020-07-22] MEDS: ACETAMINOPHEN TAB 325 MG TAB PO PRN (00:14)
[2020-07-22] MEDS: SODIUM CHLORIDE 0.9% 1,000 ML IV SCH ×3 (04:56→23:09)
[2020-07-22 07:03] LABS: Glucose,Whole Blood 168 mg/dL (75-99)
--- NOTE | 2020-07-22 08:03 | P.CONS ---
History of Present Illness - Chief Complaint Right hip fracture - History of Present Illness This is an 84-year-old white female essentially fell out of her chair and landed on her right hip with significant fracture. The patient is now admitted for arthroplasty. Consultation for medical management. Review of Systems Eyes: denies blurred vision, denies pain Ears, nose, mouth and throat: Denies headache, Denies sore throat Cardiovascular: Denies chest pain, Denies shortness of breath Respiratory: Denies cough Gastrointestinal: Denies abdominal pain, Denies diarrhea, Denies nausea, Denies vomiting Musculoskeletal: Reports as per HPI Musculoskeletal: right: hip pain, hip stiffness, hip swelling Integumentary: Denies pruritus, Denies rash Neurological: Denies numbness, Denies weakness Endocrine: Denies fatigue, Denies weight change Past Medical History Past Medical History: Coronary Artery Disease (CAD), Cancer, Diabetes Mellitus, GERD/Reflux, Hyperlipidemia, Hypertension, Osteoarthritis (OA), Renal Disease Additional Past Medical History / Comment(s): USES A WALKER, LEG SWELLING, MURMUR, SINUS PROBLEMS, BENIGN POLYPS, INCONT OF URINE, PAST HX ANEMIA, "kidney function-3.5", severe aortic stenosis, patent foramen ovale. SKIN CANCER History of Any Multi-Drug Resistant Organisms: None Reported Past Surgical History: Heart Catheterization, Heart Catheterization With Stent Additional Past Surgical History / Comment(s): CATARACT SURGERY, COLONOSCOPY, bisi, TAVR 01/03/2018. "STENT IN [facility]". Past Anesthesia/Blood Transfusion Reactions: No Reported Reaction Date of Last Stent Placement:: January 03, 2018 Past Psychological History: No Psychological Hx Reported Additional Psychological History / Comment(s): lives with her and the family home. Stopped smoking 20 years ago. No international travel. The experience. No animal exposures Smoking Status: Former smoker Past Alcohol Use History: None Reported Additional Past Alcohol Use History / Comment(s): Patient smoked one to 2 packs per day for 40 years and quit in 1989. Past Drug Use History: None Reported - Past Family History Mother Family Medical History: CVA/TIA, Diabetes Mellitus Father Family Medical History: Cancer, Coronary Artery Disease (CAD) Brother(s) Family Medical History: CVA/TIA, Diabetes Mellitus Sister(s) Family Medical History: Dementia Son(s) Family Medical History: No Reported History Daughter(s) Family Medical History: No Reported History Medications and Allergies Home Medications Medication Instructions Recorded Confirmed Type Lovastatin [Mevacor] 20 mg PO DAILY 06/23/14 07/21/20 History Potassium Chloride [K-Tab ER] 10 meq PO DAILY 06/23/14 07/21/20 History hydrALAZINE HCL [Apresoline] 75 mg PO TID 12/08/16 07/21/20 History Magnesium Oxide 400 mg PO DAILY 02/17/17 07/21/20 History allopurinoL [Zyloprim] 150 mg PO DAILY 04/28/17 07/21/20 History Vitamin E Acetate [Vitamin E] 200 unit PO DAILY 11/07/17 07/21/20 History glipiZIDE XL [Glucotrol XL] 10 mg PO AC-BID 11/17/17 07/21/20 History Famotidine [Pepcid] 20 mg PO DAILY #30 tab 11/23/17 07/21/20 Rx Metoprolol Succinate (ER) [Toprol 100 mg PO DAILY #30 tab.er.24h 11/23/17 07/21/20 Rx XL] Apixaban [Eliquis] 2.5 mg PO BID 01/29/18 07/21/20 History Ascorbic Acid [Vitamin C] 500 mg PO DAILY 01/29/18 07/21/20 History Furosemide [Lasix] 80 - 120 mg PO DIRECTED PRN 01/29/18 07/21/20 History Multivitamins, Thera [Multivitamin 1 tab PO DAILY 01/29/18 07/21/20 History (formulary)] Diltiazem HCl [Cardizem] 90 mg PO BID 02/07/19 07/21/20 History Cholecalciferol [Vitamin D3] 800 unit PO DAILY 07/21/20 07/21/20 History Docusate [Colace] 200 mg PO DAILY 07/21/20 07/21/20 History lisinopriL [Zestril] 2.5 mg PO HS 07/21/20 07/21/20 History Allergies Allergy/AdvReac Type Severity Reaction Status Date / Time cephalexin monohydrate Allergy Rash/Hives Verified 07/21/20 22:54 [From Keflex] rofecoxib [From Vioxx] Allergy Unknown Verified 07/21/20 22:54 doxycycline [From Vibramycin] AdvReac Nausea & Verified 07/21/20 22:54 Vomiting Physical Exam Vitals: Vital Signs Temp Pulse Pulse Resp BP BP Pulse Ox 07/22/20 04:48 98 F 77 20 166/59 93 L 07/22/20 01:00 98.6 F 78 18 173/50 97 07/22/20 00:00 74 18 172/78 97 07/21/20 23:00 81 20 166/54 97 07/21/20 22:00 74 18 164/53 97 07/21/20 21:06 70 20 164/53 97 07/21/20 19:59 98 F 72 20 183/60 97 Intake and Output 07/21/20 07/22/20 07/22/20 22:59 06:59 14:59 Intake Total 0 Balance 0 Intake: Oral 0 Other: # Voids 1 # Bowel Movements 1 Weight 87.453 kg 87.453 kg - Constitutional General appearance: no acute distress - EENT Eyes: EOMI - Neck Neck: lymphadenopathy - Respiratory Respiratory: bilateral: CTA - Cardiovascular Rhythm: regular Heart sounds: normal: S1, S2 Abnormal Heart Sounds: no S3 Gallop - Gastrointestinal General gastrointestinal: soft, no tenderness - Integumentary Integumentary: no cellulitis - Neurologic Neurologic: CNII-XII intact Results CBC & Chem 7: 07/21/20 20:38 07/21/20 20:38 Labs: Abnormal Lab Results - Last 24 Hours (Table) 07/21/20 07/21/20 07/22/20 Range/Units 20:38 20:38 07:01 RBC 3.06 L (3.80-5.40) m/uL Hgb 9.7 L (11.4-16.0) gm/dL Hct 29.5 L (34.0-46.0) % Lymphocytes # 0.9 L (1.0-4.8) k/uL Sodium 136 L (137-145) mmol/L Chloride 108 H (98-107) mmol/L BUN 37 H (7-17) mg/dL Creatinine 1.29 H (0.52-1.04) mg/dL POC Glucose (mg/dL) 168 H (75-99) mg/dL Assessment and Plan (1) Hip fracture Current Visit: Yes Status: Acute Code(s): S72.009A - FRACTURE OF UNSP PART OF NECK OF UNSP FEMUR, INIT SNOMED Code(s): 017448733 (2) Atrial fibrillation with RVR Current Visit: No Status: Acute Code(s): I48.91 - UNSPECIFIED ATRIAL FIBRILLATION SNOMED Code(s): 076870387654430 (3) History of atrial fibrillation Current Visit: No Status: Chronic Code(s): Z86.79 - PERSONAL HISTORY OF OTHER DISEASES OF THE CIRCULATORY SYSTEM SNOMED Code(s): 251416159 (4) History of hyperlipidemia Current Visit: No Status: Chronic Code(s): Z86.39 - PERSONAL HISTORY OF ENDO, NUTRITIONAL AND METABOLIC DISEASE SNOMED Code(s): 903944288 (5) History of hypertension Current Visit: No Status: Chronic Code(s): Z86.79 - PERSONAL HISTORY OF OTHER DISEASES OF THE CIRCULATORY SYSTEM SNOMED Code(s): 967624800 Plan: Await surgical repair. Check CBC and CMP in a.m. Anticoagulation postoperatively per protocol. Reconcile home medications. See orders otherwise. Time with Patient: Greater than 30
[2020-07-22] MEDS: allopurinoL 100 MG TAB PO SCH (08:50)
[2020-07-22] MEDS: ATORVASTATIN 10 MG TAB PO SCH (08:50)
[2020-07-22] MEDS: CHOLECALCIFEROL 400 UNIT TAB PO SCH (08:50)
[2020-07-22] MEDS: MULTIVITAMINS, THERA 1 EACH TAB PO SCH (08:50)
[2020-07-22] MEDS: POTASSIUM CHLORIDE ER 10 MEQ TAB.ER.PRT PO SCH (08:50)
[2020-07-22] MEDS: VITAMIN E (DL,TOCOPHERYL ACET) 400 UNIT CAP PO SCH (08:51)
[2020-07-22] MEDS: ASCORBIC ACID 500 MG TAB PO SCH (08:51)
[2020-07-22] MEDS: hydrALAZINE HCL 25 MG TAB PO SCH ×3 (08:51→20:34)
[2020-07-22] MEDS: METOPROLOL SUCCINATE (ER) 100 MG TAB.ER.24H PO SCH (08:51)
[2020-07-22] MEDS: FAMOTIDINE 20 MG TAB PO SCH (08:51)
[2020-07-22] MEDS: MAGNESIUM OXIDE 400 MG TAB PO SCH (08:51)
[2020-07-22] MEDS: DILTIAZEM ORAL 30 MG TAB PO SCH ×2 (08:52→20:34)
--- NOTE | 2020-07-22 08:54 | CT ---
EXAMINATION TYPE: CT pelvis wo con DATE OF EXAM: 07/22/2020 COMPARISON: 01/29/2018 HISTORY: Fx CT DLP: 1121.5 mGycm Automated exposure control for dose reduction was used. FINDINGS: There is a comminuted fracture within the distal intertrochanteric region of the right hip. Reconstru cted images in the coronal and sagittal plane are reviewed. The major fracture line appears to extend from the superior portion of the lesser trochanter into the lateral diaphysis of the proximal femora l shaft. There is loss of the right hip joint space. Multiple acetabular and femoral head subchondral cysts ar e evident. Note is made of slightly less degenerative change within the left hip. No additional fract ures are identified. Degenerative changes are in the lower lumbar spine. IMPRESSION: COMMINUTED FRACTURE INTERTROCHANTERIC REGION RIGHT HIP. PLEASE SEE ABOVE DISCUSSION FOR FRACTURE DESC RIPTION
[2020-07-22] MEDS: DOCUSATE 100 MG CAP PO SCH (08:55)
[2020-07-22] MEDS: HYDROcodone/APAP 5-325MG 1 EACH TAB PO PRN ×3 (08:56→20:34)
--- NOTE | 2020-07-22 09:01 | XR ---
EXAMINATION TYPE: XR femur RT DATE OF EXAM: 07/22/2020 CLINICAL HISTORY: pain TECHNIQUE: Two views of the right femur are obtained. COMPARISON: None. FINDINGS: Subtrochanteric fracture is identified. Displacement of approximately 1.5 cm. The hip and knee joints appear within normal limits. The overlying soft tissue appears unremarkable. IMPRESSION: Subtrochanteric fracture
--- NOTE | 2020-07-22 09:39 | P.HPOR ---
History of Present Illness H&P Date: 07/22/20 Chief Complaint: R hip pain This is an 84-year-old female who presented to the emergency department with acute right hip pain. The patient sustained a fall out of her chair at home during dinner. She noticed intense pain after she fell directly onto her right hip on the hard floor. She is unable to ambulate after this. The patient does have a significant history of stents as well as COPD. She is currently on eliquis. She states no numbness or tingling in her legs. She states she did not hit her head when she fell and did not lose consciousness. She states she i s able to wiggle her toes but her hip is intensely painful at this time. She denies fevers chills shortness of breath or chest pain at this time. Review of Systems 14 points review of systems completed and as stated in HPI or otherwise negative. Past Medical History Past Medical History: Coronary Artery Disease (CAD), Cancer, Diabetes Mellitus, GERD/Reflux, Hyperlipidemia, Hypertension, Osteoarthritis (OA), Renal Disease Additional Past Medical History / Comment(s): USES A WALKER, LEG SWELLING, MURMUR, SINUS PROBLEMS, BENIGN POLYPS, INCONT OF URINE, PAST HX ANEMIA, "kidney function-3.5", severe aortic stenosis, patent foramen ovale. SKIN CANCER History of Any Multi-Drug Resistant Organisms: None Reported Past Surgical History: Heart Catheterization, Heart Catheterization With Stent Additional Past Surgical History / Comment(s): CATARACT SURGERY, COLONOSCOPY, bisi, TAVR 01/03/2018. "STENT IN [facility]". Past Anesthesia/Blood Transfusion Reactions: No Reported Reaction Date of Last Stent Placement:: January 03, 2018 Past Psychological History: No Psychological Hx Reported Additional Psychological History / Comment(s): lives with her and the family home. Stopped smoking 20 years ago. No international travel. The experience. No animal exposures Smoking Status: Former smoker Past Alcohol Use History: None Reported Additional Past Alcohol Use History / Comment(s): Patient smoked one to 2 packs per day for 40 years and quit in 1989. Past Drug Use History: None Reported - Past Family History Mother Family Medical History: CVA/TIA, Diabetes Mellitus Father Family Medical History: Cancer, Coronary Artery Disease (CAD) Brother(s) Family Medical History: CVA/TIA, Diabetes Mellitus Sister(s) Family Medical History: Dementia Son(s) Family Medical History: No Reported History Daughter(s) Family Medical History: No Reported History Medications and Allergies Home Medications Medication Instructions Recorded Confirmed Type Lovastatin [Mevacor] 20 mg PO DAILY 06/23/14 07/21/20 History Potassium Chloride [K-Tab ER] 10 meq PO DAILY 06/23/14 07/21/20 History hydrALAZINE HCL [Apresoline] 75 mg PO TID 12/08/16 07/21/20 History Magnesium Oxide 400 mg PO DAILY 02/17/17 07/21/20 History allopurinoL [Zyloprim] 150 mg PO DAILY 04/28/17 07/21/20 History Vitamin E Acetate [Vitamin E] 200 unit PO DAILY 11/07/17 07/21/20 History glipiZIDE XL [Glucotrol XL] 10 mg PO AC-BID 11/17/17 07/21/20 History Famotidine [Pepcid] 20 mg PO DAILY #30 tab 11/23/17 07/21/20 Rx Metoprolol Succinate (ER) [Toprol 100 mg PO DAILY #30 tab.er.24h 11/23/17 07/21/20 Rx XL] Apixaban [Eliquis] 2.5 mg PO BID 01/29/18 07/21/20 History Ascorbic Acid [Vitamin C] 500 mg PO DAILY 01/29/18 07/21/20 History Furosemide [Lasix] 80 - 120 mg PO DIRECTED PRN 01/29/18 07/21/20 History Multivitamins, Thera [Multivitamin 1 tab PO DAILY 01/29/18 07/21/20 History (formulary)] Diltiazem HCl [Cardizem] 90 mg PO BID 02/07/19 07/21/20 History Cholecalciferol [Vitamin D3] 800 unit PO DAILY 07/21/20 07/21/20 History Docusate [Colace] 200 mg PO DAILY 07/21/20 07/21/20 History lisinopriL [Zestril] 2.5 mg PO HS 07/21/20 07/21/20 History Allergies Allergy/AdvReac Type Severity Reaction Status Date / Time cephalexin monohydrate Allergy Rash/Hives Verified 07/21/20 22:54 [From Keflex] rofecoxib [From Vioxx] Allergy Unknown Verified 07/21/20 22:54 doxycycline [From Vibramycin] AdvReac Nausea & Verified 07/21/20 22:54 Vomiting Physical Examination Osteopathic Statement: *. No significant issues noted on an osteopathic structural exam other than those noted in the History and Physical/Consult. Gen.: The patient alert and oriented 3 appears well-nourished well-hydrated and is in no acute distress. She does require oxygen at the bedside at this time. Obese body habitus Vital signs are as stated in chart and reviewed Right lower extremity exam: Extremities examination examination patient is holding her leg in an extra rotated and flexed position which is a position of comfort for her. There is intense pain with any log roll or palpation. There are no open wounds over the right hip. Her pelvis is stable on palpatory exam. She has intact light touch and pinprick sensation in L2 S1 nerve distribution of bilateral lower extremity's. She is 5 of 5 strength in dorsiflexion and plantarflexion EHL and FHL bilateral lower extremities. She is limited knee range of motion on the right secondary to pain in her hip. She has full range of motion on the left 5 x 5 strength. She has good strength in her upper extremities with full range of motion of all major joints of her upper extremities. She is palpable dorsalis pedis was posterior tibial pulses bilaterally Her compartments are soft and compressible at this time. Results AP pelvis as well as AP and lateral right hip are obtained and reviewed and demonstrate a acute intertrochanteric fracture of the right hip. This is a reverse oblique type fracture with proximal displacement as well as translation. CT of the pelvis demonstrates this fracture as well which is displaced along with subchondral cysts in the femoral head but no femoral neck fracture can be noted. There are no other pelvic fractures noted. Pelvis is congruent. Femoral acetabular joints are congruent. - Labs Labs: Abnormal Lab Results - Last 24 Hours (Table) 07/21/20 07/21/20 07/22/20 Range/Units 20:38 20:38 07:01 RBC 3.06 L (3.80-5.40) m/uL Hgb 9.7 L (11.4-16.0) gm/dL Hct 29.5 L (34.0-46.0) % Lymphocytes # 0.9 L (1.0-4.8) k/uL Sodium 136 L (137-145) mmol/L Chloride 108 H (98-107) mmol/L BUN 37 H (7-17) mg/dL Creatinine 1.29 H (0.52-1.04) mg/dL POC Glucose (mg/dL) 168 H (75-99) mg/dL H & H 07/21/20 Range/Units 20:38 Hgb 9.7 L (11.4-16.0) gm/dL Hct 29.5 L (34.0-46.0) % Coagulation 07/21/20 Range/Units 20:38 INR 0.9 (<1.2) Result Diagrams: 07/21/20 20:38 07/21/20 20:38 Assessment and Plan Assessment: 1. Acute closed right hip intertrochanteric fracture, reverse oblique, comminuted 2. Complex medical patient Plan: 1. Appreciate medical consultation and management 2. Stop anticoagulation 3. SCDs, JEROME hose 4. Trend labs 5. Add Flexeril 10 mg 3 times a day when necessary spasm 6. Will have a Discussion with family about surgical options. I discussed with the patient about her surgical options in that in order for her to walk again and she will need to have his hip fixed. We will plan on surgical fixation with intramedullary alexandra of the right hip tomorrow 07/23/2020. This would give us time off eliquis as well as time for medical optimization. 7. SOFIYA @ [place]
[2020-07-22 11:08] LABS: Hemoglobin A1C 5.9 % (4.0-6.0)
[2020-07-22 11:30] LABS: Glucose,Whole Blood 172 mg/dL (75-99)
--- NOTE | 2020-07-22 12:05 | P.CRDCN ---
History of Present Illness Consult date: 07/22/20 Chief complaint: Fall, right hip fracture History of present illness: This is a pleasant 84-year-old female who follows regularly with Dr. Seth in the office. She has a known history of paroxysmal atrial fibrillation and is on Eliquis at home for anticoagulation, history of hyperlipidemia, peripheral vascular disease, PAD with prior iliofemoral bypass in December 2017, severe aortic stenosis for which the patient underwent T aVR in December 2017, she also underwent a recent cardiac catheterization which showed mild coronary artery disease, in 2017 and her most recent echo was performed in the office in October 2019 which revealed an ejection fraction of 55%, moderate TR, mild MR and prosthetic aortic valve. Patient presents to the hospital on this occasion after experiencing a fall at home. According to the patient she was sitting on a kitchen chair and slid off the cushion on the chair onto the floor. She presented to the emergency room with moderate to severe pain in her right hip. Her hip and pelvic x-ray on presentation here showed acute inter trochanteric fracture of the right femur, brain CT showed mild cerebral atrophy, CT of the pelvis showed a right hip fracture femur x-ray showed some trochanteric fracture on the right chest x-ray showed pulmonary fibrosis with questionable mild congestive heart failure. Blood pressure 186/66 with a heart rate in the 70s, 95% on room air. White blood cell count 8.5, hemoglobin 9.7, platelet count 211. Sodium 136, potassium 4.5, BUN 37 and creatinine 1.2. At the time of my examination the patient was resting comfortably in bed, complaining of mild pain in the right hip area. Currently the plan is to proceed with surgery tomorrow after the orthopedic surgeon speak with the patient's son. Past Medical History Past Medical History: Coronary Artery Disease (CAD), Cancer, Diabetes Mellitus, GERD/Reflux, Hyperlipidemia, Hypertension, Osteoarthritis (OA), Renal Disease Additional Past Medical History / Comment(s): USES A WALKER, LEG SWELLING, MURMUR, SINUS PROBLEMS, BENIGN POLYPS, INCONT OF URINE, PAST HX ANEMIA, "kidney function-3.5", severe aortic stenosis, patent foramen ovale. SKIN CANCER History of Any Multi-Drug Resistant Organisms: None Reported Past Surgical History: Heart Catheterization, Heart Catheterization With Stent Additional Past Surgical History / Comment(s): CATARACT SURGERY, COLONOSCOPY, bisi, TAVR 01/03/2018. "STENT IN [facility]". Past Anesthesia/Blood Transfusion Reactions: No Reported Reaction Date of Last Stent Placement:: January 03, 2018 Past Psychological History: No Psychological Hx Reported Additional Psychological History / Comment(s): lives with her and the family home. Stopped smoking 20 years ago. No international travel. The experience. No animal exposures Smoking Status: Former smoker Past Alcohol Use History: None Reported Additional Past Alcohol Use History / Comment(s): Patient smoked one to 2 packs per day for 40 years and quit in 1989. Past Drug Use History: None Reported - Past Family History Mother Family Medical History: CVA/TIA, Diabetes Mellitus Father Family Medical History: Cancer, Coronary Artery Disease (CAD) Brother(s) Family Medical History: CVA/TIA, Diabetes Mellitus Sister(s) Family Medical History: Dementia Son(s) Family Medical History: No Reported History Daughter(s) Family Medical History: No Reported History Medications and Allergies Home Medications Medication Instructions Recorded Confirmed Type Lovastatin [Mevacor] 20 mg PO DAILY 06/23/14 07/21/20 History Potassium Chloride [K-Tab ER] 10 meq PO DAILY 06/23/14 07/21/20 History hydrALAZINE HCL [Apresoline] 75 mg PO TID 12/08/16 07/21/20 History Magnesium Oxide 400 mg PO DAILY 02/17/17 07/21/20 History allopurinoL [Zyloprim] 150 mg PO DAILY 04/28/17 07/21/20 History Vitamin E Acetate [Vitamin E] 200 unit PO DAILY 11/07/17 07/21/20 History glipiZIDE XL [Glucotrol XL] 10 mg PO AC-BID 11/17/17 07/21/20 History Famotidine [Pepcid] 20 mg PO DAILY #30 tab 11/23/17 07/21/20 Rx Metoprolol Succinate (ER) [Toprol 100 mg PO DAILY #30 tab.er.24h 11/23/17 07/21/20 Rx XL] Apixaban [Eliquis] 2.5 mg PO BID 01/29/18 07/21/20 History Ascorbic Acid [Vitamin C] 500 mg PO DAILY 01/29/18 07/21/20 History Furosemide [Lasix] 80 - 120 mg PO DIRECTED PRN 01/29/18 07/21/20 History Multivitamins, Thera [Multivitamin 1 tab PO DAILY 01/29/18 07/21/20 History (formulary)] Diltiazem HCl [Cardizem] 90 mg PO BID 02/07/19 07/21/20 History Cholecalciferol [Vitamin D3] 800 unit PO DAILY 07/21/20 07/21/20 History Docusate [Colace] 200 mg PO DAILY 07/21/20 07/21/20 History lisinopriL [Zestril] 2.5 mg PO HS 07/21/20 07/21/20 History Allergies Allergy/AdvReac Type Severity Reaction Status Date / Time cephalexin monohydrate Allergy Rash/Hives Verified 07/22/20 10:35 [From Keflex] rofecoxib [From Vioxx] Allergy Unknown Verified 07/22/20 10:35 doxycycline [From Vibramycin] AdvReac Nausea & Verified 07/22/20 10:35 Vomiting Physical Exam Vitals: Vital Signs Temp Pulse Pulse Resp BP BP Pulse Ox 07/22/20 07:00 98.1 F 77 187/61 95 07/22/20 04:48 98 F 77 20 166/59 93 L 07/22/20 01:00 98.6 F 78 18 173/50 97 07/22/20 00:00 74 18 172/78 97 07/21/20 23:00 81 20 166/54 97 07/21/20 22:00 74 18 164/53 97 07/21/20 21:06 70 20 164/53 97 07/21/20 19:59 98 F 72 20 183/60 97 Intake and Output 07/21/20 07/22/20 07/22/20 22:59 06:59 14:59 Intake Total 0 Balance 0 Intake: Oral 0 Other: # Voids 1 # Bowel Movements 1 Weight 87.453 kg 87.453 kg PHYSICAL EXAMINATION: GENERAL: She 4-year-old female in no acute distress at the time of my examination HEENT: Head is atraumatic, normocephalic. Pupils equal, round. Sclera anicteric. Conjunctiva are clear. Mucous membranes of the mouth are moist. Neck is supple. There is no elevated jugular venous pressure. No carotid bruit is heard. HEART EXAMINATION: S1 and S2 1 systolic murmur is heard CHEST EXAMINATION: Lungs are clear to auscultation and precussion. No chest wall tenderness is noted on palpation or with deep breathing. ABDOMEN: Soft, nontender. Bowel sounds are heard. No organomegaly noted. EXTREMITIES: 2+ peripheral pulses with no evidence of peripheral edema and no calf tenderness noted. NEUROLOGIC patient is awake, alert and oriented 3 . Results 07/21/20 20:38 07/21/20 20:38 Coagulation 07/21/20 Range/Units 20:38 PT 9.7 (9.0-12.0) sec APTT 23.8 (22.0-30.0) sec CBC 07/21/20 Range/Units 20:38 WBC 8.5 (3.8-10.6) k/uL RBC 3.06 L (3.80-5.40) m/uL Hgb 9.7 L (11.4-16.0) gm/dL Hct 29.5 L (34.0-46.0) % Plt Count 211 (150-450) k/uL Comprehensive Metabolic Panel 07/21/20 Range/Units 20:38 Sodium 136 L (137-145) mmol/L Potassium 4.5 (3.5-5.1) mmol/L Chloride 108 H (98-107) mmol/L Carbon Dioxide 22 (22-30) mmol/L BUN 37 H (7-17) mg/dL Creatinine 1.29 H (0.52-1.04) mg/dL Glucose 93 (74-99) mg/dL Calcium 8.5 (8.4-10.2) mg/dL Current Medications Generic Name Dose Route Start Last Admin Trade Name Freq PRN Reason Stop Dose Admin Acetaminophen 650 mg 07/21/20 21:56 07/22/20 00:14 Acetaminophen Tab 325 Mg Tab PO 650 mg Q6HR PRN Administration Mild Pain or Fever > 100.5 Hydrocodone Bitart/Acetaminophen 1 each 07/21/20 21:56 07/22/20 08:56 Hydrocodone/Apap 5-325mg 1 Each Tab PO 1 each Q4HR PRN Administration Moderate Pain Allopurinol 150 mg 07/22/20 09:00 07/22/20 08:50 Allopurinol 100 Mg Tab PO 150 mg DAILY OLIVIA Administration Ascorbic Acid 500 mg 07/22/20 09:00 07/22/20 08:51 Ascorbic Acid 500 Mg Tab PO 500 mg DAILY OLIVIA Administration Atorvastatin Calcium 10 mg 07/22/20 09:00 07/22/20 08:50 Atorvastatin 10 Mg Tab PO 10 mg DAILY OLIVIA Administration Cholecalciferol 800 unit 07/22/20 09:00 07/22/20 08:50 Cholecalciferol 400 Unit Tab PO 800 unit DAILY OLIVIA Administration Diltiazem HCl 90 mg 07/22/20 09:00 07/22/20 08:52 Diltiazem Oral 30 Mg Tab PO 90 mg BID OLIVIA Administration Docusate Sodium 200 mg 07/22/20 09:00 07/22/20 08:55 Docusate 100 Mg Cap PO 200 mg DAILY OLIVIA Administration Famotidine 20 mg 07/22/20 09:00 07/22/20 08:51 Famotidine 20 Mg Tab PO 20 mg DAILY OLIVIA Administration Hydralazine HCl 75 mg 07/22/20 09:00 07/22/20 08:51 Hydralazine Hcl 25 Mg Tab PO 75 mg TID OLIVIA Administration Sodium Chloride 1,000 mls @ 20 mls/hr 07/21/20 20:34 07/21/20 20:46 Saline 0.9% IV 07/22/20 20:33 20 mls/hr .Q24H STA Administration Sodium Chloride 1,000 mls @ 80 mls/hr 07/21/20 22:00 07/22/20 04:56 Saline 0.9% IV Not Given .[id number] OLIVIA Lisinopril 2.5 mg 07/22/20 21:00 Lisinopril 2.5 Mg Tab PO HS OLIVIA Magnesium Oxide 400 mg 07/22/20 09:00 07/22/20 08:51 Magnesium Oxide 400 Mg Tab PO 400 mg DAILY OLIVIA Administration Metoprolol Succinate 100 mg 07/22/20 09:00 07/22/20 08:51 Metoprolol Succinate (Er) 100 Mg Tab.Er.24h PO 100 mg DAILY OLIVIA Administration Morphine Sulfate 4 mg 07/21/20 21:56 Morphine Sulfate 4 Mg/Ml Syringe IV Q4HR PRN Severe Pain Multivitamins 1 each 07/22/20 09:00 07/22/20 08:50 Multivitamins, Thera 1 Each Tab PO 1 each DAILY OLIVIA Administration Naloxone HCl 0.2 mg 10/12/20 21:56 Naloxone 0.4 Mg/Ml 1 Ml Vial IV Q2M PRN Opioid Reversal Ondansetron HCl 4 mg 07/21/20 21:56 Ondansetron 4 Mg/2 Ml Vial IVP Q8HR PRN Nausea And Vomiting Potassium Chloride 10 meq 07/22/20 09:00 07/22/20 08:50 Potassium Chloride Er 10 Meq Tab.Er.Prt PO 10 meq DAILY OLIVIA Administration Vitamin E 400 unit 07/22/20 09:00 07/22/20 08:51 Vitamin E (Dl,Tocopheryl Acet) 400 Unit Cap PO 400 unit DAILY OLIVIA Administration Intake and Output 07/21/20 07/22/20 07/22/20 22:59 06:59 14:59 Intake Total 0 Balance 0 Intake: Oral 0 Other: # Voids 1 # Bowel Movements 1 Weight 87.453 kg 87.453 kg 07/21/20 20:38 07/21/20 20:38 EKG Interpretations (text) No EKG performed Assessment and Plan Plan: Assessment and plan #1 fall with evidence of acute right femur fracture #2 severe aortic stenosis, status post T aVR in December 2017 #3 mild coronary artery disease by cardiac catheterization performed in 2018 which did not reveal any significantly obstructive coronary artery disease #4 paroxysmal atrial fibrillation, currently in normal sinus rhythm #5 PAD with prior iliofemoral bypass #6 prior history of smoking #7 hyperlipidemia #8 hypertension #9 diabetes Plan We will obtain an echocardiogram with Doppler study. Patient has had no recent symptoms of chest discomfort or shortness of breath. She is considered at moderate risk for surgery, but she is cleared from our perspective to proceed. Eliquis is currently on hold, we will need to resume postoperatively. We will obtain an EKG. We will continue to follow along with you. DNP note has been reviewed, I agree with a documented findings and plan of care. Patient was seen and examined.
[2020-07-22 16:43] LABS: Glucose,Whole Blood 141 mg/dL (75-99)
[2020-07-22] MEDS: INSULIN ASPART (NovoLOG) 100 UNIT/ML VIAL SQ SCH ×2 (17:44→21:28)
[2020-07-22 21:04] LABS: Glucose,Whole Blood 188 mg/dL (75-99)
[2020-07-23] MEDS: HYDROcodone/APAP 5-325MG 1 EACH TAB PO PRN (02:39)
[2020-07-23 06:35] LABS: HCT 26.4 % (34.0-46.0); HGB 8.6 gm/dL (11.4-16.0); Hypochromasia Slight; MCH 32.2 pg (25.0-35.0); MCHC 32.4 g/dL (31.0-37.0); MCV 99.3 fL (80.0-100.0); Mean Platelet Volume 8.1; Platelet Count 187 k/uL (150-450); RBC 2.66 m/uL (3.80-5.40); RDW 13.8 % (11.5-15.5); WBC 9.8 k/uL (3.8-10.6)
[2020-07-23] MEDS: ATORVASTATIN 10 MG TAB PO SCH (07:07)
[2020-07-23] MEDS: MAGNESIUM OXIDE 400 MG TAB PO SCH (07:07)
[2020-07-23] MEDS: CHOLECALCIFEROL 400 UNIT TAB PO SCH (07:07)
[2020-07-23] MEDS: FAMOTIDINE 20 MG TAB PO SCH (07:07)
[2020-07-23] MEDS: DOCUSATE 100 MG CAP PO SCH (07:07)
[2020-07-23] MEDS: DILTIAZEM ORAL 30 MG TAB PO SCH ×2 (07:07→20:28)
[2020-07-23] MEDS: ASCORBIC ACID 500 MG TAB PO SCH (07:07)
[2020-07-23] MEDS: VITAMIN E (DL,TOCOPHERYL ACET) 400 UNIT CAP PO SCH (07:08)
[2020-07-23] MEDS: POTASSIUM CHLORIDE ER 10 MEQ TAB.ER.PRT PO SCH (07:08)
[2020-07-23] MEDS: MULTIVITAMINS, THERA 1 EACH TAB PO SCH (07:08)
[2020-07-23 07:13] LABS: Glucose,Whole Blood 185 mg/dL (75-99)
--- NOTE | 2020-07-23 08:01 | P.PN ---
Subjective Progress Note Date: 07/23/20 Principal diagnosis: postop day #1 for hip fracture. The patient is postop day #1 for hip fracture. The patient is doing well and states minimal pain. However, ambulatory element will be instituted today. Objective - Vital Signs Vital signs: Vital Signs Temp 98.1 F 07/23/20 07:00 Pulse 68 07/23/20 07:00 Resp 20 07/23/20 01:00 BP 139/79 07/23/20 07:00 Pulse Ox 92 L 07/23/20 07:00 Intake & Output 07/22/20 07/23/20 07/23/20 18:59 06:59 18:59 Intake Total 840 200 Balance 840 200 Intake: Intake, IV Titration 640 Amount Sodium Chloride 0.9% 1, 640 000 ml @ 80 mls/hr IV . [id number] OLIVIA Rx#:[id number] Oral 200 200 Other: # Voids 2 2 - Constitutional General appearance: Present: average body habitus - EENT Eyes: Absent: abnormal pupil - Respiratory Respiratory: bilateral: CTA - Cardiovascular Rhythm: regular Heart sounds: normal: S1, S2 Abnormal Heart Sounds: Absent: S3 Gallop - Gastrointestinal General gastrointestinal: Present: soft. Absent: tenderness - Integumentary Integumentary: Absent: cellulitis - Labs CBC & Chem 7: 07/23/20 05:48 07/21/20 20:38 Labs: Abnormal Lab Results - Last 24 Hours (Table) 07/22/20 07/22/20 07/22/20 Range/Units 11:28 16:42 20:54 RBC (3.80-5.40) m/uL Hgb (11.4-16.0) gm/dL Hct (34.0-46.0) % POC Glucose (mg/dL) 172 H 141 H 188 H (75-99) mg/dL 07/23/20 07/23/20 Range/Units 05:48 07:11 RBC 2.66 L (3.80-5.40) m/uL Hgb 8.6 L (11.4-16.0) gm/dL Hct 26.4 L (34.0-46.0) % POC Glucose (mg/dL) 185 H (75-99) mg/dL Assessment and Plan (1) Hip fracture Current Visit: Yes Status: Acute Code(s): S72.009A - FRACTURE OF UNSP PART OF NECK OF UNSP FEMUR, INIT SNOMED Code(s): 300086521 (2) Atrial fibrillation with RVR Current Visit: No Status: Acute Code(s): I48.91 - UNSPECIFIED ATRIAL FIBRILLATION SNOMED Code(s): 098834768567856 (3) History of atrial fibrillation Current Visit: No Status: Chronic Code(s): Z86.79 - PERSONAL HISTORY OF OTHER DISEASES OF THE CIRCULATORY SYSTEM SNOMED Code(s): 689585247 (4) History of hyperlipidemia Current Visit: No Status: Chronic Code(s): Z86.39 - PERSONAL HISTORY OF ENDO, NUTRITIONAL AND METABOLIC DISEASE SNOMED Code(s): 084555114 (5) History of hypertension Current Visit: No Status: Chronic Code(s): Z86.79 - PERSONAL HISTORY OF OTHER DISEASES OF THE CIRCULATORY SYSTEM SNOMED Code(s): 650407726 Plan: Await surgical repair. Check CBC and CMP in a.m. Anticoagulation postoperatively per protocol. Reconcile home medications. See orders otherwise.
[2020-07-23] MEDS: METOPROLOL SUCCINATE (ER) 100 MG TAB.ER.24H PO SCH (08:12)
[2020-07-23] MEDS: hydrALAZINE HCL 25 MG TAB PO SCH ×3 (08:12→19:37)
[2020-07-23] MEDS: INSULIN ASPART (NovoLOG) 100 UNIT/ML VIAL SQ SCH ×4 (08:12→23:58)
[2020-07-23] MEDS: allopurinoL 100 MG TAB PO SCH (08:12)
--- NOTE | 2020-07-23 08:34 | P.PN ---
Subjective Progress Note Date: 07/23/20 Principal diagnosis: R hip closed, subtrochanteric fracture Pt s/e this AM. She is awake and alert, slightly confused as to where she is at but easily reorients. States her sons were in yesterday. Denies any change in pain. Denies numbness/tingling/sob/cp/v/n at this time. Objective - Vital Signs Vital signs: Vital Signs Temp 98.1 F 07/23/20 07:00 Pulse 68 07/23/20 07:00 Resp 20 07/23/20 01:00 BP 139/79 07/23/20 07:00 Pulse Ox 92 L 07/23/20 07:00 Intake & Output 07/22/20 07/23/20 07/23/20 18:59 06:59 18:59 Intake Total 840 200 Balance 840 200 Intake: Intake, IV Titration 640 Amount Sodium Chloride 0.9% 1, 640 000 ml @ 80 mls/hr IV . [id number] OLIVIA Rx#:[id number] Oral 200 200 Other: # Voids 2 2 - Exam Exam is stable at this time. - Neurologic Neurologic: Present: CNII-XII intact - Psychiatric Psychiatric: Present: appropriate affect, intact judgment & insight - Labs CBC & Chem 7: 07/23/20 05:48 07/21/20 20:38 Labs: Abnormal Lab Results - Last 24 Hours (Table) 07/22/20 07/22/20 07/22/20 Range/Units 11:28 16:42 20:54 RBC (3.80-5.40) m/uL Hgb (11.4-16.0) gm/dL Hct (34.0-46.0) % POC Glucose (mg/dL) 172 H 141 H 188 H (75-99) mg/dL 07/23/20 07/23/20 Range/Units 05:48 07:11 RBC 2.66 L (3.80-5.40) m/uL Hgb 8.6 L (11.4-16.0) gm/dL Hct 26.4 L (34.0-46.0) % POC Glucose (mg/dL) 185 H (75-99) mg/dL Assessment and Plan Assessment: 1. Acute closed right hip intertrochanteric fracture, reverse oblique, comminu bridgette 2. Complex medical patient Plan: 1. Appreciate medical consultation and management 2. NPO confirmed 3. Spoke with son this AM, he will be in pre op with pt to talk more 4. Plan on IMN today around 1 pm. Erika Fajardo is a 84 yo female presenting for evaluation of sudden onset RLE pain, inability to ambulate after glf. It was my pleasure to have seen and examined Erika Fajardo i. In our visit today we have had a chance to go over subjective complaints, physical examination findings and treatments including the natural course histo ry without intervention and various interventional options. Her imaging demonstrates Closed, communited IT fracture of the R hip On physical exam, Erika Fajardo demonstrates pain with motion of R hip, NV intact LE . I explained to the patient that this fracture needs stabilization. Based on the patients imaging, physical exam, and the rapid progression and disabling nature of her symptoms, at this time I recommend surgery in the form or a: ORIF of R hip with IM nail fixation. I discussed the risk and benefits of this procedure at length with Erika Fajardo and her son Tray Fajardo. Questions were invited and answered, and the patient wishes to proceed as outlined below. Currently, I am recommendin. Right open reduction and intramedullary nail fixation of comminuted subtrochanteric fracture 2. Review of surgical risks and benefits as well as an educational packet on the proposed surgical procedure. Risks: All surgical procedures come with inherent risks, including those related to positioning, anesthesia, intraoperative findings, and postoperative complications. It is important to understand that surgery does not come with any guarantee of a successful outcome as complications and adverse events are always possible. The patient was given a handout in office today discussing the surgical procedure and risks associated with the intervention, both of which were discussed with the patient. These risks include but are not limited to the following: - Experiencing same, different or even worse symptoms compared to before surgery. - Requiring further surgery or other forms of treatment presently or at some time in the future . - On an extreme but fortunately relatively rare basis severe complication such as blindness, stroke, heart attack, temporary and/or permanent nerve injury, paralysis, coma, or may occur, sometimes without known e xplanation. - Surgical complications may include but are not limited to risk of infection, fluid accumulation in the surgical dissection site, including a seroma or hematoma, that requires additional surgery, wound drainage, bleeding, new numbness or weakness, vision changes/loss, spinal fluid leakage, non-healing and/or infected incision, headaches, difficulty or inability to swallow, hoars eness, hemopneumothorax, pneumothorax, injury to nerves, spinal cord, blood vessels, lymphatics or other vital organs (i.e., bowel injury, injury to the great vessels); heterotopic bone formation; complications related to the hardware such as screws, rods, including misplaced hardware, device failure, hardware fracture/breakage, or hardware loosening; retained surgical instrumentations or devices and the need for further surgery. - Medical risks of the planned surgery include but are not limited to generalized Infections to the whole body or local areas outside of the surgical site (sepsis), heart attack, bleeding, anaphylaxis, meningitis, seizure, epilepsy, hearing loss, burn eaton, laceration of the head or other areas of the body, bruising, hypersensitivity of the skin, bladder over distension; allergic reaction; shoulder injury related to positioning; fat, blood and air clots to other areas of the body like heart, lungs, brain; failure of internal organs such as lungs, kidneys, liver and excessive bleeding. If blood transfusions are necessary, note that transfusions may cause intolerance reactions such as anaphylaxis or other complex reactions. Despite best efforts, the results of surgery might not heal in terms of bone, soft tissues such as skin, fascia, ligaments, and joints. [facility] is an educational center that serves as a training facility for neurosurgical and orthopedic spine residents and fellows. Residents are physicians who are completing their surgical intensive training following medical school. They assist in the operating room with direct supervision of the attending surgeons. [place] are surgeons who have completed their training and eligible for board certification. They have opted for an elective year of more specialized training in their field. They assist in the operating room under the supervision of the attending surgeons. Physician assistants are medically trained surgical providers who function in the outpatient, inpatient, and operating room setting under the direct supervision of the attending kristie long [facility] has multiple operating rooms with single and overlapping rooms running daily. They currently function under the required guidelines as produced by the Senate Finance Committee with regards to the overlapping rooms and will continue to comply with changes to this policy as they occur. The requirements include and are complied with as follows: (1) the critical portions of the overlapping rooms will not occur at the same time, (2) the attending physician will be physically present during the critical portions of the procedure and immediately available during the entire case, and (3) a back-up attending is designated should the primary attending not be immediately dahlia ilable. The patient has had a chance to review all the listed information, has been given print outs detailing this information, and has had all his/her questions answered to their satisfaction. It was my pleasure to have seen and examined Jeanna Fajardo. In our visit today we have had a chance to go over my understanding of our patient's current condition, the natural course history without intervention and various interventional options. Questions were invited and answered, and the patient and her son wish to proceed as outlined above. I have seen and examined the patient for 25 minutes and we have spent more than 50% of the time in repeat and detailed counseling about the patient's condition, its natural course history with out and as much as can be predicted with surgery and re-review of various surgical treatment options. In conclusion, Erika Fajardo and her son Tray Fajardo requested we proceed with the above suggested surgery and are willing to accept risks and limitations of the suggested surgery as nature of the disease process and our best attempts at treatment for the condition. Thank you again for allowing us to be part of your patient's care. Please don't hesitate to contact me if you have any further questions. Signed and authenticated by: Gilberto Amezcua [facility] [address] [facility], [place] [address] [place] [id number]
--- NOTE | 2020-07-23 09:19 | P.PN ---
Subjective Progress Note Date: 07/23/20 This is a pleasant 84-year-old female who follows regularly with Dr. Seth in the office. She has a known history of paroxysmal atrial fibrillation and is on Eliquis at home for anticoagulation, history of hyperlipidemia, peripheral vascular disease, PAD with prior iliofemoral bypass in December 2017, severe aortic stenosis for which the patient underwent T aVR in December 2017, she also underwent a recent cardiac catheterization which showed mild coronary artery disease, in 2017 and her most recent echo was performed in the office in October 2019 which revealed an ejection fraction of 55%, moderate TR, mild MR and prosthetic aortic valve. Patient presents to the hospital on this occasion after experiencing a fall at home. According to the patient she was sitting on a kitchen chair and slid off the cushion on the chair onto the floor. She presented to the emergency room with moderate to severe pain in her right hip. Her hip and pelvic x-ray on presentation here showed acute inter trochanteric fracture of the right femur, brain CT showed mild cerebral atrophy, CT of the pelvis showed a right hip fracture femur x-ray showed some trochanteric fracture on the right chest x-ray showed pulmonary fibrosis with questionable mild congestive heart failure. Blood pressure 186/66 with a heart rate in the 70s, 95% on room air. White blood cell count 8.5, hemoglobin 9.7, platelet count 211. Sodium 136, potassium 4.5, BUN 37 and creatinine 1.2. At the time of my examination the patient was resting comfortably in bed, complaining of mild pain in the right hip area. Currently the plan is to proceed with surgery tomorrow after the orthopedic surgeon speak with the patient's son. 07/23/2020 Patient seen and examined this morning, resting comfortably in bed. Scheduled for surgery this afternoon. Blood pressure 140/78 with a heart rate in the 60s, 92% on 2 L of oxygen. White blood cell count 9.8, hemoglobin 8.6, platelet count 187. Echocardiogram with Doppler study remains pending. Objective - Vital Signs Vital signs: Vital Signs Temp 98.1 F 07/23/20 07:00 Pulse 68 07/23/20 07:00 Resp 20 07/23/20 01:00 BP 139/79 07/23/20 07:00 Pulse Ox 92 L 07/23/20 07:00 Intake & Output 1007/23/20 07/23/20 18:59 06:59 18:59 Intake Total 840 200 Balance 840 200 Intake: Intake, IV Titration 640 Amount Sodium Chloride 0.9% 1, 640 000 ml @ 80 mls/hr IV . [id number] OLIVIA Rx#:[id number] Oral 200 200 Other: # Voids 2 2 - Exam PHYSICAL EXAMINATION: GENERAL: 84-year-old female in no acute distress at the time of my examination HEENT: Head is atraumatic, normocephalic. Pupils equal, round. Sclera anicteric. Conjunctiva are clear. Mucous membranes of the mouth are moist. Neck is supple. There is no elevated jugular venous pressure. No carotid bruit is heard. HEART EXAMINATION: S1 and S2 1 systolic murmur is heard CHEST EXAMINATION: Lungs are clear to auscultation and precussion. No chest wall tenderness is noted on palpation or with deep breathing. ABDOMEN: Soft, nontender. Bowel sounds are heard. No organomegaly noted. EXTREMITIES: 2+ peripheral pulses with no evidence of peripheral edema and no calf tenderness noted. NEUROLOGIC patient is awake, alert and oriented 3 - Labs CBC & Chem 7: 07/23/20 05:48 07/21/20 20:38 Labs: Abnormal Lab Results - Last 24 Hours (Table) 07/22/20 07/22/20 07/22/20 Range/Units 11:28 16:42 20:54 RBC (3.80-5.40) m/uL Hgb (11.4-16.0) gm/dL Hct (34.0-46.0) % POC Glucose (mg/dL) 172 H 141 H 188 H (75-99) mg/dL 07/23/20 07/23/20 Range/Units 05:48 07:11 RBC 2.66 L (3.80-5.40) m/uL Hgb 8.6 L (11.4-16.0) gm/dL Hct 26.4 L (34.0-46.0) % POC Glucose (mg/dL) 185 H (75-99) mg/dL Assessment and Plan Plan: Assessment and plan #1 fall with evidence of acute right femur fracture #2 severe aortic stenosis, status post T aVR in December 2017 #3 mild coronary artery disease by cardiac catheterization performed in 2018 which did not reveal any significantly obstructive coronary artery disease #4 paroxysmal atrial fibrillation, currently in normal sinus rhythm #5 PAD with prior iliofemoral bypass #6 prior history of smoking #7 hyperlipidemia #8 hypertension #9 diabetes Plan We will review the echocardiogram with Doppler study. Patient scheduled for surgery today. We will continue to follow. DNP note has been reviewed, I agree with a documented findings and plan of care. Patient was seen and examined.
[2020-07-23 09:53] LABS: African American GFR (CKD) 47.7 (60.0-200.0); Albumin 3.3 g/dL (3.80-4.90); Albumin/Globulin Ratio 1.5 (1.60-3.17); Anion Gap 9.1 mmol/L (4.00-12.00); BUN/Creat Ratio 28.33 Ratio (12.00-20.00); Calcium 8.3 mg/dL (8.7-10.3); Carbon Dioxide 19.9 mmol/L (21.6-31.8); Globulin 2.2 g/dL (1.6-3.3); Magnesium 2.1 mg/dL (1.5-2.4); Non-African American GFR(CKD) 41.2 (60.0-200.0); Total Bilirubin 0.5 mg/dL (0.2-1.2); Total Protein 5.5 g/dL (6.2-8.2)
[2020-07-23] MEDS ORDERED: CYCLOBENZAPRINE 5 MG TAB PO STA (11:06)
[2020-07-23 11:27] LABS: Glucose,Whole Blood 142 mg/dL (75-99)
[2020-07-23] MEDS ORDERED: IV FLUID CONTINUATION 1,000 ML IV ONE (12:09)
[2020-07-23] MEDS ORDERED: LACTATED RINGERS 1,000 ML IV ONE ×2 (12:30→17:45)
--- NOTE | 2020-07-23 12:36 | P.PN ---
Progress Note - Text Progress Note Date: 07/23/20 Pt seen and evaluated again in pre op with Radha her daughter. Here sons are not available at this time. We discussed in detail the risks of the procedure as well as anesthesia and the very real risk in her mother of having heart or lung problems with surgery due to her complex medical and cardiac history. They state that they would rather attempt at getting her back to be able to transfer than just be bed bound as she was moderately ambulatory before this fall. We discussed the patients code status and how she needs to be a full code in order to proceed with surgery and that after surgery we can change her back to whatever code status they would like. They are OK with this and agree to make her full code for procedure and would like to change her back to no code after the procedure. They understand the risks involved with this and what it entails. We will transfuse the patient due to her low Hgb currently pre op. She will get abx. The site was marked and consent was signed. She is ready to proceed. Anesthesia is evaluating the patient at this time as well.
[2020-07-23] MEDS ORDERED: CLINDAMYCIN 900 MG in DEXTROSE 5% IN WATER 50 ML IVPB STA ×2 (13:01)
[2020-07-23] MEDS ORDERED: NEOSTIGMINE 1 MG/ML 10 ML VIAL ONE (13:09)
[2020-07-23] MEDS ORDERED: ROCURONIUM 10 MG/ML (10 ML VIAL) IV ONE (13:09)
[2020-07-23] MEDS ORDERED: PROPOFOL 10 MG/ML 20 ML VIAL IV ONE (13:09)
[2020-07-23] MEDS ORDERED: GLYCOPYRROLATE 0.2 MG/ML 2 ML VIAL ONE (13:09)
[2020-07-23] MEDS ORDERED: fentaNYL (PF) 50 MCG/ML 2 ML AMP ONE (13:09)
[2020-07-23] MEDS ORDERED: SUCCINYLCHOLINE CHLORIDE 100 MG/5 ML SYR IV ONE (13:09)
[2020-07-23] MEDS ORDERED: ePHEDrine SULFATE/0.9% NACL/PF 50 MG/5 ML SYRINGE IV ONE (13:09)
[2020-07-23] MEDS ORDERED: LIDOCAINE 1% INJ 10MG/ML (20 ML MDV) ONE (13:09)
--- NOTE | 2020-07-23 15:45 | P.OP ---
Date of Procedure: 07/23/20 Preoperative Diagnosis: R hip subtrochanteric fracture, closed, displaced, comminuted Postoperative Diagnosis: Same Procedure(s) Performed: Closed reduction and IMN of Right hip Implants: Jamil Gamma nail [id number] 105 mm lag screw Two distal locking screws Anesthesia: GETA Surgeon: Gilberto Betts Estimated Blood Loss (ml): 100 IV fluids (ml): 400 Urine output (ml): 200 Pathology: none sent Condition: stable Disposition: PACU Indications for Procedure: This is an 84-year-old female who presented to the emergency department with acute right hip pain. The patient sustained a fall out of her chair at home during dinner. She noticed intense pain after she fell directly onto her right hip on the hard floor. She is unable to ambulate after this. The patient does have a significant history of stents as well as COPD. She is currently on eliquis. She states no numbness or tingling in her legs. She states she did not hit her head when she fell and did not lose consciousness. She states she i s able to wiggle her toes but her hip is intensely painful at this time. She denies fevers chills shortness of breath or chest pain at this time. Operative Findings: Comminuted displaced subtrochanteric fracture of the R proxmial femur Osteoporosis with poor bone quality. Description of Procedure: ewa was seen and examined in the preoperative area. All preoperative protocols were followed. The patient was accompanied by her daughter Radha. I discussed the procedure at length with them and they are both in agreement and willing to undergo the procedure. The patient was given a weight-based dose of Clindamycin 900 IVPB 30 minutes prior to incision. Informed consent was reviewed and obtained and signed. The site was marked. The patient was transfer the operative suite by department of anesthesia. She was drifted off to sleep by department of anesthesia and GETA was performed. Once adequate anesthesia been obtain the patient was atraumatically and carefully transferred to the [place] table. The post was placed. She was secured in place with a safety strap. Her Right lower extremity placed in a ski boot and placed in the [place] well leg mittal. Her right Left was placed in a well- leg mittal. Her Right arm was crossed across her chest and well-padded. Her left arm was laid out flat and well-padded. SCD was placed on nonoperative lower extremity. Once in good position and when adequate anesthesia been obtained the patient was reduced under fluoroscopic guidance. The right hip was visualized and a good reduced position. The right leg was then prepped and draped in normal sterile fashion. Fluoroscopic guidance was used to make an incision approximately 2 cm proximal to the tip of the greater trochanter. This incision was taken down to the tip the greater trochanter and palpated. Guidewire was then placed using AP and lateral fluoroscopy to ensure that starting point. Once this was in good position opening reamer was placed over guidewire. Guidewire was then removed and the ball tip guidewire was placed. AP lateral fluoroscopy confirmed good placement of the ball-tipped guidewire at the superior portion of the patient's patellar region. Once this is in good position and sequential reaming of the femur started with a 9 reamer sequentially reaming by 0.5 mm each time until 12.5 mm reamer was passed. Good shatter was heard with 112.5 reamer and so a 11 mm nail was selected. This nail was measured to be 340 mm long. The nail was then passed over the guidewire atraumatically. And using fluoroscopic guidance was impacted into good position. Once in good position for leg screw placement guidewire for the lag screw was used to julieth out incision. Incision was made on the lateral aspect patient's thigh for the jig to place the leg screw. This was secured in place. Guidewire was then placed into the inferior portion of the femoral neck to ensure tip to apex distance of less than 10. Once this was in good position it was measured and 105 mm lag screw was selected. This like screw was then placed over the guidewire and using fluoroscopic guidance. Once in good position the locking nut was tightened on the proximal portion of the nail to ensure the leg screw was locked into position the guidewire was then removed and jig was removed for placement. This was confirmed to be in good position under AP and lateral fluoroscopy. Attention was then drawn to the distal portion of the nail with a distal static hole was selected perfect circles were obtained incision was made carried down to bone and a drill was placed in this area. Once drilled and confirmed to be in the nail on AP and lateral fluoroscopy the locking screw was placed. A second locking screw was placed in similar fashion within the proximal portion of the dynamic hole to ensure static locking. aP and lateral fluoroscopy confirmed good placement of lag screws and locking screws. Reduction of the fracture. All wounds were then irrigated with copious amounts of normal sterile saline. Proximal incision fascia was closed with 0 Vicryl in a simple fashion. Subcu was then closed of all areas with 0 Vicryl 2- 0 Vicryl and skin kezia. Then dressed sterilely with that Xeroform 4 x 4's and Tegaderms. Patient tolerated the procedure very well. She was awakened by department incision transient postoperative care unit in stable condition.
[2020-07-23 16:41] LABS: Glucose,Whole Blood 257 mg/dL (75-99)
--- NOTE | 2020-07-23 16:44 | XR ---
EXAMINATION TYPE: XR Hip Complete RT, FL guidance operating room DATE OF EXAM: 07/23/2020 CLINICAL HISTORY: Intramedullary alexandra insertion of right femur TECHNIQUE: Fluoroscopy. COMPARISON: Right femur radiograph 07/22/2020 FINDINGS: Fluoroscopic guidance was provided during procedure for performing physician. A total of 4.21 minutes of fluoroscopic time was utilized during the procedure and 4 spot images was acquired. P edmond see operative report for additional details. IMPRESSION: As Above.
[2020-07-23] MEDS ORDERED: propofoL 100 ML IV ONE (17:19)
[2020-07-23 17:30] LABS: ABG Base Excess -9.1 mmol/L; ABG HCO3 19 mmol/L (21-25); ABG Oxygen Saturation 93.9 % (94-97); ABG PCO2 51 mmHg (35-45); ABG PO2 78 mmHg (83-108); ABG TCO2 21 mmol/L (19-24)
[2020-07-23 17:31] LABS: ABG PH 7.18 (7.35-7.45); Allen Test Performed? no
[2020-07-23] MEDS ORDERED: FUROSEMIDE 10 MG/ML 4 ML VIAL IV STA (17:35)
[2020-07-23] MEDS ORDERED: SODIUM BICARB 8.4% 50 ML SYR (1 MEQ/ML) IV STA (17:36)
[2020-07-23] MEDS: SODIUM CHLORIDE 0.9% 1,000 ML IV SCH ×2 (17:46→23:33)
--- NOTE | 2020-07-23 17:48 | XR ---
EXAMINATION TYPE: XR chest 1V confirm line [facility] DATE OF EXAM: 07/23/2020 COMPARISON: 07/21/2020 HISTORY: Check line placement TECHNIQUE: FINDINGS: Heart is enlarged. There is pulmonary vascular congestion. There is pulmonary patchy edema. Nasogastric tube is in the stomach. The endotracheal tube is 2 cm from the tiffanie. There is right ju gular catheter with the tip in the right atrium. There is aortic valve stent. Thoracic aorta is ather omatous. There are chest leads. IMPRESSION: There is pulmonary edema that is the same or worse than recent exam. Findings consistent with congestive heart failure.
--- NOTE | 2020-07-23 17:58 | P.CNPUL ---
History of Present Illness Consult date: 07/23/20 Reason for consult: other Chief complaint: Acute hypercapnic respiratory failure History of present illness: 84-year-old white female patient that came into the hospital on 07/21/2020 following a fall out of her chair landing on her right hip and sustaining a right hip fracture. X-ray of the right hip and AP pelvis showed acute intertrochanteric fracture of the right femur. Moderate osteoarthritis in the hip joints. Brain CT showed mild cerebral atrophy, with minimal chronic small vessel ischemia no acute intracranial abnormality. Chest x-ray on admission showed pulmonary interstitial density consistent with pulmonary fibrosis, mild heart failure could not be excluded. Past medical history is significant for coronary artery disease, diabetes type II, hypertension, hyperlipidemia, osteoarthritis, history of Her on 01/03/2018, previous cardiac stent placements, patient is a former smoker. In preop. Patient was seen by cardiology and cleared for surgery. She has had no recent history of chest discomfort or shortness of breath. On 07/23/2020 patient underwent closed reduction and IMN of the right hip by Dr. Betts. Following surgery patient was extubated in the recovery, however she remains very obtunded, she was placed on BiPAP support, and we were urgently consulted for ICU placement. In view of her ongoing decreased level of consciousness, we recommended the reintubation and placement in the intensive care unit. Patient is seen in intensive care unit, she is on assist-control mode of ventilation with a rate of 16, tidal volume 450, FiO2 is 80% and PEEP of 5, blood gas was obtained showing pO2 of 78, pCO2 51, and pH of 7.18. Amp bicarb was given. Patient had a right IJ triple lumen catheter placed, and right radial art line placed. She was given a liter bolus. She is in sinus mechanism, she did have an episode of transient hypotension for which fluid bolus was given, however as she started to wake up she is actually becoming hypertensive and she will be placed on sedation. Chest x-ray was obtained showing interstitial prominence and possibility of mild heart failure. We'll give the patient a dose of Lasix as well. No fever. Review of Systems All systems: negative Constitutional: Denies chills, Denies fever Eyes: denies blurred vision, denies pain Ears, nose, mouth and throat: Denies headache, Denies sore throat Cardiovascular: Denies chest pain, Denies shortness of breath Respiratory: Denies cough Gastrointestinal: Denies abdominal pain, Denies diarrhea, Denies nausea, Denies vomiting Genitourinary: Denies dysuria, Denies hematuria Musculoskeletal: Reports frequent falls, Denies myalgias Integumentary: Denies pruritus, Denies rash Neurological: Reports change in mentation, Denies numbness, Denies weakness Psychiatric: Denies anxiety, Denies depression Endocrine: Denies fatigue, Denies weight change Past Medical History Past Medical History: Coronary Artery Disease (CAD), Cancer, Diabetes Mellitus, GERD/Reflux, Hyperlipidemia, Hypertension, Osteoarthritis (OA), Renal Disease Additional Past Medical History / Comment(s): USES A WALKER, LEG SWELLING, MURMUR, SINUS PROBLEMS, BENIGN POLYPS, INCONT OF URINE, PAST HX ANEMIA, "kidney function-3.5", severe aortic stenosis, patent foramen ovale. SKIN CANCER History of Any Multi-Drug Resistant Organisms: None Reported Past Surgical History: Heart Catheterization, Heart Catheterization With Stent Additional Past Surgical History / Comment(s): CATARACT SURGERY, COLONOSCOPY, bisi, TAVR 01/03/2018. "STENT IN [facility]". Past Anesthesia/Blood Transfusion Reactions: No Reported Reaction Date of Last Stent Placement:: January 03, 2018 Past Psychological History: No Psychological Hx Reported Additional Psychological History / Comment(s): lives with her and the family home. Stopped smoking 20 years ago. No international travel. The experience. No animal exposures Smoking Status: Former smoker Past Alcohol Use History: None Reported Additional Past Alcohol Use History / Comment(s): Patient smoked one to 2 packs per day for 40 years and quit in 1989. Past Drug Use History: None Reported - Past Family History Mother Family Medical History: CVA/TIA, Diabetes Mellitus Father Family Medical History: Cancer, Coronary Artery Disease (CAD) Brother(s) Family Medical History: CVA/TIA, Diabetes Mellitus Sister(s) Family Medical History: Dementia Son(s) Family Medical History: No Reported History Daughter(s) Family Medical History: No Reported History Medications and Allergies Home Medications Medication Instructions Recorded Confirmed Type Lovastatin [Mevacor] 20 mg PO DAILY 06/23/14 07/21/20 History Potassium Chloride [K-Tab ER] 10 meq PO DAILY 06/23/14 07/21/20 History hydrALAZINE HCL [Apresoline] 75 mg PO TID 12/08/16 07/21/20 History Magnesium Oxide 400 mg PO DAILY 02/17/17 07/21/20 History allopurinoL [Zyloprim] 150 mg PO DAILY 04/28/17 07/21/20 History Vitamin E Acetate [Vitamin E] 200 unit PO DAILY 11/07/17 07/21/20 History glipiZIDE XL [Glucotrol XL] 10 mg PO AC-BID 11/17/17 07/21/20 History Famotidine [Pepcid] 20 mg PO DAILY #30 tab 11/23/17 07/21/20 Rx Metoprolol Succinate (ER) [Toprol 100 mg PO DAILY #30 tab.er.24h 11/23/17 07/21/20 Rx XL] Apixaban [Eliquis] 2.5 mg PO BID 01/29/18 07/21/20 History Ascorbic Acid [Vitamin C] 500 mg PO DAILY 01/29/18 07/21/20 History Furosemide [Lasix] 80 - 120 mg PO DIRECTED PRN 01/29/18 07/21/20 History Multivitamins, Thera [Multivitamin 1 tab PO DAILY 01/29/18 07/21/20 History (formulary)] Diltiazem HCl [Cardizem] 90 mg PO BID 02/07/19 07/21/20 History Cholecalciferol [Vitamin D3] 800 unit PO DAILY 07/21/20 07/21/20 History Docusate [Colace] 200 mg PO DAILY 07/21/20 07/21/20 History lisinopriL [Zestril] 2.5 mg PO HS 07/21/20 07/21/20 History Allergies Allergy/AdvReac Type Severity Reaction Status Date / Time cephalexin monohydrate Allergy Rash/Hives Verified 07/22/20 10:35 [From Keflex] rofecoxib [From Vioxx] Allergy Unknown Verified 07/22/20 10:35 doxycycline [From Vibramycin] AdvReac Nausea & Verified 07/22/20 10:35 Vomiting Physical Exam Vitals: Vital Signs Temp Pulse Pulse Pulse Resp BP BP 07/23/20 13:03 99.3 F 71 16 168/72 07/23/20 12:33 99.3 F 71 16 165/62 07/23/20 12:23 99.1 F 73 73 16 117/53 117/53 07/23/20 07:00 98.1 F 68 139/79 07/23/20 01:00 98.2 F 66 20 141/49 07/22/20 19:50 98.5 F 68 20 143/46 Pulse Ox 07/23/20 13:03 93 L 07/23/20 12:33 93 L 07/23/20 12:23 93 L 07/23/20 07:00 92 L 07/23/20 01:00 95 07/22/20 19:50 92 L Intake and Output 07/23/20 07/23/20 07/23/20 06:59 14:59 22:59 Intake Total 0 1410 Output Total 200 300 Balance 0 1210 -300 Intake: IV 1100 Oral 0 Blood Product 310 Rc As-1 Unit 310 [id number] Output: Urine 300 Estimated Blood Loss 200 Other: Voiding Method Diaper Incontinent # Voids 2 GENERAL EXAM: Sedated, intubated, 84-year-old elderly female on assist-control mode of ventilation, comfortable in no apparent distress. HEAD: Normocephalic/atraumatic. EYES: Normal reaction of pupils, equal size. Conjunctiva pink, sclera white. NOSE: Clear with pink turbinates. THROAT: No erythema or exudates. NECK: No masses, no JVD, no thyroid enlargement, no adenopathy. CHEST: No chest wall deformity. Symmetrical expansion. LUNGS: Equal air entry with no crackles, wheeze, rhonchi or dullness. CVS: Regular rate and rhythm, normal S1 and S2, no gallops, no murmurs, no rubs ABDOMEN: Soft, nontender. No hepatosplenomegaly, normal bowel sounds, no guarding or rigidity. EXTREMITIES: No clubbing, no edema, no cyanosis, 2+ pulses and upper and lower extremities. MUSCULOSKELETAL: Muscle strength and tone normal. Right hip lateral incision and incision on right leg closer to the right patella covered with surgical dressings, clean dry and intact SPINE: No scoliosis or deformity SKIN: No rashes CENTRAL NERVOUS SYSTEM: Sedated, intubated. No focal deficits, tone is normal in all 4 extremities. Results - Laboratory Findings CBC and BMP: 07/23/20 05:48 07/23/20 05:48 ABG ABG pH 7.18 (7.35-7.45) L* 07/23/20 17:25 ABG pCO2 51 mmHg (35-45) H 07/23/20 17:25 ABG pO2 78 mmHg (83-108) L 07/23/20 17:25 ABG O2 Saturation 93.9 % (94-97) L 07/23/20 17:25 PT/INR, D-dimer PT 9.7 sec (9.0-12.0) 07/21/20 20:38 INR 0.9 (<1.2) 07/21/20 20:38 Abnormal lab findings: Abnormal Labs 07/21/20 07/21/20 07/22/20 20:38 20:38 07:01 RBC 3.06 L Hgb 9.7 L Hct 29.5 L Lymphocytes # 0.9 L ABG pH ABG pCO2 ABG pO2 ABG HCO3 ABG O2 Saturation Sodium 136 L Chloride 108 H Carbon Dioxide BUN 37 H Creatinine 1.29 H Est GFR (CKD-EPI)AfAm Est GFR (CKD-EPI)NonAf BUN/Creatinine Ratio Glucose POC Glucose (mg/dL) 168 H Calcium Total Protein Albumin Albumin/Globulin Ratio Crossmatch 07/22/20 07/22/20 07/22/20 11:28 16:42 20:54 RBC Hgb Hct Lymphocytes # ABG pH ABG pCO2 ABG pO2 ABG HCO3 ABG O2 Saturation Sodium Chloride Carbon Dioxide BUN Creatinine Est GFR (CKD-EPI)AfAm Est GFR (CKD-EPI)NonAf BUN/Creatinine Ratio Glucose POC Glucose (mg/dL) 172 H 141 H 188 H Calcium Total Protein Albumin Albumin/Globulin Ratio Crossmatch 07/23/20 07/23/20 07/23/20 05:48 05:48 07:11 RBC 2.66 L Hgb 8.6 L Hct 26.4 L Lymphocytes # ABG pH ABG pCO2 ABG pO2 ABG HCO3 ABG O2 Saturation Sodium Chloride Carbon Dioxide 19.9 L BUN 34.0 H Creatinine Est GFR (CKD-EPI)AfAm 47.7 L Est GFR (CKD-EPI)NonAf 41.2 L BUN/Creatinine Ratio 28.33 H Glucose 173 H POC Glucose (mg/dL) 185 H Calcium 8.3 L Total Protein 5.5 L Albumin 3.30 L Albumin/Globulin Ratio 1.50 L Crossmatch 07/23/20 07/23/20 07/23/20 07:41 11:25 16:40 RBC Hgb Hct Lymphocytes # ABG pH ABG pCO2 ABG pO2 ABG HCO3 ABG O2 Saturation Sodium Chloride Carbon Dioxide BUN Creatinine Est GFR (CKD-EPI)AfAm Est GFR (CKD-EPI)NonAf BUN/Creatinine Ratio Glucose POC Glucose (mg/dL) 142 H 257 H Calcium Total Protein Albumin Albumin/Globulin Ratio Crossmatch See Detail 07/23/20 17:25 RBC Hgb Hct Lymphocytes # ABG pH 7.18 L* ABG pCO2 51 H ABG pO2 78 L ABG HCO3 19 L ABG O2 Saturation 93.9 L Sodium Chloride Carbon Dioxide BUN Creatinine Est GFR (CKD-EPI)AfAm Est GFR (CKD-EPI)NonAf BUN/Creatinine Ratio Glucose POC Glucose (mg/dL) Calcium Total Protein Albumin Albumin/Globulin Ratio Crossmatch - Diagnostic Findings Chest x-ray: report reviewed, image reviewed Assessment and Plan Plan: Assessment: #1. Acute hypercapnic respiratory failure related to acute exacerbation of CHF, chest x-ray showing findings consistent with pulmonary edema, and hypoventilation related to operative sedation. Patient was reintubated in the PACU and transferred to the ICU #2. Acute metabolic acidosis, don't have a current set of labs, not determined anion gap or non-anion gap #3. Right hip subtrochanteric fracture, closed, displaced, comminuted, status post closed reduction and IM and of the right hip, postoperative day 0 #4. History of TAVR in 2017 her history of severe aortic stenosis #5. History of coronary artery disease with previous stenting #6. History of hypertension #7. Paroxysmal atrial fibrillation currently in sinus mechanism #8. Diabetes mellitus type 2 #9. Osteoarthritis #10. Macular degeneration #11. History of chronic kidney disease, specifically #12. 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 Patient was fluid resuscitated, blood pressure was stabilized, patient will be started on Diprivan, she will be continued on assist control mode of ventilation, blood gas was reviewed and will give amp of sodium bicarbonate and 40 mg of Lasix. We will send her proBNP level, we will send a current set of labs. Cardiology is following, ech ocardiogram is pending. Daily chest x-ray, daily labs, GI and DVT prophylaxis. We'll continue to follow I performed a history & physical examination of the patient and discussed their management with my nurse practitioner, Emiliana Coelho. I reviewed the nurse practitioner's note and agree with the documented findings and plan of care. Lung sounds are positive for diminished breath sounds. The findings and the impression was discussed with the patient. I attest to the documentation by the nurse practitioner. Time with Patient: Greater than 30
[2020-07-23] MEDS ORDERED: LACTATED RINGERS 1,000 ML IV SCH (18:13)
[2020-07-23] MEDS ORDERED: HYDROmorphone 0.5 MG/0.5 ML SYRINGE IVP PRN (18:13)
[2020-07-23] MEDS ORDERED: LIDOCAINE 1% (10MG/ML) FOR IV START INTRADERMA PRN (18:13)
[2020-07-23] MEDS ORDERED: ONDANSETRON 4 MG/2 ML VIAL IVP ONE (18:13)
[2020-07-23] MEDS ORDERED: DEXAMETHASONE SOD PHOSPHATE 10 MG/ML 1 ML VIAL IV ONE (18:13)
[2020-07-23 18:45] LABS: Basophils % (A) 0 %; Eosinophils % (A) 0 %; HCT 24.9 % (34.0-46.0); HGB 8.3 gm/dL (11.4-16.0); Hypochromasia Slight; Lymphocytes # (A) 0.3 k/uL (1.0-4.8); Lymphocytes % (A) 2 %; MCH 32.4 pg (25.0-35.0); MCHC 33.2 g/dL (31.0-37.0); MCV 97.5 fL (80.0-100.0); Monocytes # (A) 0.5 k/uL (0-1.0); Monocytes % (A) 4 %; Neutrophils # (A) 11.8 k/uL (1.3-7.7); Neutrophils % (A) 93 %; Platelet Count 160 k/uL (150-450); RBC 2.56 m/uL (3.80-5.40); RDW 14.3 % (11.5-15.5); WBC 12.6 k/uL (3.8-10.6)
[2020-07-23 18:49] LABS: Calcium 7.7 mg/dL (8.4-10.2); Potassium 5.3 mmol/L (3.5-5.1)
[2020-07-23 19:37] LABS: ABG Base Excess -4.7 mmol/L; ABG HCO3 21 mmol/L (21-25); ABG Oxygen Saturation 99.5 % (94-97); ABG PCO2 37 mmHg (35-45); ABG PH 7.36 (7.35-7.45); ABG PO2 124 mmHg (83-108); ABG TCO2 22 mmol/L (19-24)
[2020-07-23] MEDS ORDERED: DOBUTamine DRIP 500 MG in DEXTROSE/WATER 1 250ML.BAG IV SCH (19:45)
[2020-07-23] MEDS: CHLORHEXIDINE GLUCONATE 15 ML CUP MUCOUS MEM SCH (19:55)
[2020-07-23] MEDS ORDERED: SODIUM CHLORIDE 0.9% 500 ML 500 ML IV ONE (20:35)
[2020-07-23 23:42] LABS: Glucose,Whole Blood 117 mg/dL (75-99)
[2020-07-23 23:50] LABS: Glucose,Whole Blood 118 mg/dL (75-99)
[2020-07-24 04:48] LABS: Albumin 2.1 g/dL (3.5-5.0); Calcium 7.4 mg/dL (8.4-10.2); Potassium 4.5 mmol/L (3.5-5.1); Total Bilirubin 0.3 mg/dL (0.2-1.3); Total Protein 4.2 g/dL (6.3-8.2)
--- NOTE | 2020-07-24 04:54 | PCN ---
PROCEDURE NOTE OPERATIVE REPORT: Placement of the right radial arterial line. PREOPERATIVE DIAGNOSIS: Hypoxic respiratory failure and hypotension. POSTOPERATIVE DIAGNOSIS: Hypoxic respiratory failure and hypotension. ANESTHESIA USED: None deployed. PROCEDURE: The patient was placed in the supine position, the right wrist was prepared in a sterile fashion and drapes were applied. The right radial artery was palpated, cannulated easily and a guidewire was placed. A Cook catheter was inserted over the guidewire, and the guidewire was removed. Good blood flow and good waveform noted, no evidence of any immediate complications. The line was secured using 3.0 silk sutures. MMODL / IJN: [id number] /
--- NOTE | 2020-07-24 04:54 | PCN ---
PROCEDURE NOTE OPERATIVE REPORT: Placement of a right IJ triple-lumen catheter. PREOPERATIVE DIAGNOSIS: Postoperative hypoxic respiratory failure, unable to wean post surgery. Patient needed IV access for hemodynamic monitoring and for fluids. POSTOPERATIVE DIAGNOSIS: Postoperative hypoxic respiratory failure, unable to wean post surgery. Patient needed IV access for hemodynamic monitoring and for fluids. ANESTHESIA USED: 2 mL of 1% lidocaine. PROCEDURE: The patient was placed in a Trendelenburg position, the area of the right cervical region was prepared in a sterile fashion and drapes were applied. At the site of the posterior belly of the sternocleidomastoid, 2 cm behind it, the area was locally anesthetized. Then, the right IJ vein was easily cannulated using the posterior approach, and a guidewire was placed. The area was dilated around the guidewire with the dilator. Then a triple-lumen catheter was inserted over the guidewire and the guidewire was removed. Good blood flow in the 3 different ports noted. The line was secured using 3.0 silk sutures. Chest x-ray showed no evidence of any complications, and adequate placement of the triple-lumen catheter. MMODL / IJN: [id number] /
[2020-07-24 04:57] LABS: Basophils % (A) 0 %; Eosinophils # (A) 0.1 k/uL (0-0.7); Eosinophils % (A) 2 %; HCT 21.4 % (34.0-46.0); Lymphocytes # (A) 0.8 k/uL (1.0-4.8); Lymphocytes % (A) 13 %; MCH 31.3 pg (25.0-35.0); MCHC 32.6 g/dL (31.0-37.0); Mean Platelet Volume 8.6; Monocytes # (A) 0.4 k/uL (0-1.0); Monocytes % (A) 7 %; Neutrophils # (A) 4.7 k/uL (1.3-7.7); Neutrophils % (A) 76 %; Platelet Count 126 k/uL (150-450); RBC 2.23 m/uL (3.80-5.40); RDW 14.5 % (11.5-15.5); WBC 6.1 k/uL (3.8-10.6)
[2020-07-24 05:51] LABS: Glucose,Whole Blood 95 mg/dL (75-99)
[2020-07-24] MEDS: INSULIN ASPART (NovoLOG) 100 UNIT/ML VIAL SQ SCH ×4 (05:52→21:21)
[2020-07-24] MEDS ORDERED: FUROSEMIDE 10 MG/ML 4 ML VIAL IV STA (06:22)
[2020-07-24] MEDS: NOREPINEPHRINE 4 MG in SODIUM CHLORIDE 0.9% 250 ML IV SCH (06:48)
[2020-07-24 07:13] LABS: ABG Base Excess -3.8 mmol/L; ABG HCO3 21 mmol/L (21-25); ABG Oxygen Saturation 99.9 % (94-97); ABG PCO2 36 mmHg (35-45); ABG PH 7.38 (7.35-7.45); ABG PO2 159 mmHg (83-108); ABG TCO2 23 mmol/L (19-24)
[2020-07-24 07:15] LABS: Allen Test Performed? no
[2020-07-24] MEDS: POTASSIUM CHLORIDE ER 10 MEQ TAB.ER.PRT PO SCH (08:25)
[2020-07-24] MEDS: CHLORHEXIDINE GLUCONATE 15 ML CUP MUCOUS MEM SCH (08:25)
[2020-07-24] MEDS: ATORVASTATIN 10 MG TAB PO SCH (08:25)
[2020-07-24] MEDS: MULTIVITAMINS, THERA 1 EACH TAB PO SCH (08:25)
[2020-07-24] MEDS: MAGNESIUM OXIDE 400 MG TAB PO SCH (08:25)
[2020-07-24] MEDS: FAMOTIDINE 20 MG TAB PO SCH (08:25)
[2020-07-24] MEDS: ASCORBIC ACID 500 MG TAB PO SCH (08:26)
[2020-07-24] MEDS: DOCUSATE 100 MG CAP PO SCH (08:26)
[2020-07-24] MEDS: allopurinoL 100 MG TAB PO SCH (08:26)
[2020-07-24] MEDS: CHOLECALCIFEROL 400 UNIT TAB PO SCH (08:29)
[2020-07-24] MEDS: VITAMIN E (DL,TOCOPHERYL ACET) 400 UNIT CAP PO SCH (08:29)
--- NOTE | 2020-07-24 08:29 | P.PN ---
Subjective Principal diagnosis: Patient with change in status The patient is postop day #2 for hip fracture. Transferred due to post op changes. Now on pressors but seems stable. We will hold antihypertensives Objective - Vital Signs Vital signs: Vital Signs Temp 97.6 F 07/24/20 08:00 Pulse 64 07/24/20 08:00 Resp 20 07/24/20 08:00 BP 139/48 07/24/20 08:00 Pulse Ox 100 07/24/20 08:00 Intake & Output 07/23/20 07/24/20 07/24/20 18:59 06:59 18:59 Intake Total 2698.657 1565.968 95.155 Output Total 630 342 30 Balance 2068.657 1223.968 65.155 Weight 92.5 kg Intake: IV 2380 1400 80 LR 280 100 Lactated Ringers 1,000 ml 1000 @ 999 mls/hr IV .Q1H1M [facility] Rx#:[id number] Sodium Chloride 0.9% 1, 800 80 000 ml @ 80 mls/hr IV . [id number] [facility] Rx#:[id number] Sodium Chloride 0.9% 500 500 ml 500 ml @ 999 mls/hr IV .Q31M [facility] Rx#:[id number] Intake, IV Titration 8.657 165.968 15.155 Amount Norepinephrine 4 mg In 15.155 Sodium Chloride 0.9% 250 ml @ 0.05 MCG/KG/MIN 17. 621 mls/hr IV .[id number] [facility] Rx#:[id number] propofoL 1,000 mg In 8.657 165.968 Empty Bag 1 bag @ Titrate IV .Q0M [facility] Rx#: [id number] Blood Product 310 Rc As-1 Unit 310 [id number] Output: Urine 430 342 30 Estimated Blood Loss 200 Other: Voiding Method Indwelling Catheter Indwelling Catheter ABP, PAP, CO, CI - Last Documented Arterial Blood Pressure 141/32 - Constitutional General appearance: Present: thin - EENT Eyes: Absent: abnormal pupil - Neck Neck: Absent: lymphadenopathy - Respiratory Respiratory: bilateral: CTA - Cardiovascular Rhythm: regular Heart sounds: normal: S1, S2 Abnormal Heart Sounds: Absent: S3 Gallop - Gastrointestinal General gastrointestinal: Present: soft. Absent: tenderness - Neurologic Neurologic: Absent: CNII-XII intact - Psychiatric Psychiatric: Absent: A&O x's 3 - Labs CBC & Chem 7: 07/24/20 04:05 07/24/20 04:05 Labs: Abnormal Lab Results - Last 24 Hours (Table) 07/23/20 07/23/20 07/23/20 Range/Units 05:48 07:41 11:25 WBC (3.8-10.6) k/uL RBC (3.80-5.40) m/uL Hgb (11.4-16.0) gm/dL Hct (34.0-46.0) % Plt Count (150-450) k/uL Neutrophils # (1.3-7.7) k/uL Lymphocytes # (1.0-4.8) k/uL ABG pH (7.35-7.45) ABG pCO2 (35-45) mmHg ABG pO2 (83-108) mmHg ABG HCO3 (21-25) mmol/L ABG O2 Saturation (94-97) % Sodium (137-145) mmol/L Potassium (3.5-5.1) mmol/L Chloride (98-107) mmol/L Carbon Dioxide 19.9 L (21.6-31.8) mmol/L BUN 34.0 H (9.0-27.0) mg/dL Creatinine (0.52-1.04) mg/dL Est GFR (CKD-EPI)AfAm 47.7 L (60.0-200.0) Est GFR (CKD-EPI)NonAf 41.2 L (60.0-200.0) BUN/Creatinine Ratio 28.33 H (12.00-20.00) Ratio Glucose 173 H (70-110) mg/dL POC Glucose (mg/dL) 142 H (75-99) mg/dL Calcium 8.3 L (8.7-10.3) mg/dL Alkaline Phosphatase (38-126) U/L Total Protein 5.5 L (6.2-8.2) g/dL Albumin 3.30 L (3.80-4.90) g/dL Albumin/Globulin Ratio 1.50 L (1.60-3.17) g/dL Crossmatch See Detail 07/23/20 07/23/20 07/23/20 Range/Units 11:30 11:30 16:40 WBC 12.6 H (3.8-10.6) k/uL RBC 2.56 L (3.80-5.40) m/uL Hgb 8.3 L (11.4-16.0) gm/dL Hct 24.9 L (34.0-46.0) % Plt Count (150-450) k/uL Neutrophils # 11.8 H (1.3-7.7) k/uL Lymphocytes # 0.3 L (1.0-4.8) k/uL ABG pH (7.35-7.45) ABG pCO2 (35-45) mmHg ABG pO2 (83-108) mmHg ABG HCO3 (21-25) mmol/L ABG O2 Saturation (94-97) % Sodium 134 L (137-145) mmol/L Potassium 5.3 H (3.5-5.1) mmol/L Chloride 110 H (98-107) mmol/L Carbon Dioxide 19 L (21.6-31.8) mmol/L BUN 34 H (9.0-27.0) mg/dL Creatinine 1.28 H (0.52-1.04) mg/dL Est GFR (CKD-EPI)AfAm (60.0-200.0) Est GFR (CKD-EPI)NonAf (60.0-200.0) BUN/Creatinine Ratio (12.00-20.00) Ratio Glucose 198 H (70-110) mg/dL POC Glucose (mg/dL) 257 H (75-99) mg/dL Calcium 7.7 L (8.7-10.3) mg/dL Alkaline Phosphatase (38-126) U/L Total Protein (6.2-8.2) g/dL Albumin (3.80-4.90) g/dL Albumin/Globulin Ratio (1.60-3.17) g/dL Crossmatch 07/23/20 07/23/20 07/23/20 Range/Units 17:25 19:32 23:41 WBC (3.8-10.6) k/uL RBC (3.80-5.40) m/uL Hgb (11.4-16.0) gm/dL Hct (34.0-46.0) % Plt Count (150-450) k/uL Neutrophils # (1.3-7.7) k/uL Lymphocytes # (1.0-4.8) k/uL ABG pH 7.18 L* (7.35-7.45) ABG pCO2 51 H (35-45) mmHg ABG pO2 78 L 124 H (83-108) mmHg ABG HCO3 19 L (21-25) mmol/L ABG O2 Saturation 93.9 L 99.5 H (94-97) % Sodium (137-145) mmol/L Potassium (3.5-5.1) mmol/L Chloride (98-107) mmol/L Carbon Dioxide (21.6-31.8) mmol/L BUN (9.0-27.0) mg/dL Creatinine (0.52-1.04) mg/dL Est GFR (CKD-EPI)AfAm (60.0-200.0) Est GFR (CKD-EPI)NonAf (60.0-200.0) BUN/Creatinine Ratio (12.00-20.00) Ratio Glucose (70-110) mg/dL POC Glucose (mg/dL) 117 H (75-99) mg/dL Calcium (8.7-10.3) mg/dL Alkaline Phosphatase (38-126) U/L Total Protein (6.2-8.2) g/dL Albumin (3.80-4.90) g/dL Albumin/Globulin Ratio (1.60-3.17) g/dL Crossmatch 07/23/20 07/24/20 07/24/20 Range/Units 23:49 04:05 04:05 WBC (3.8-10.6) k/uL RBC 2.23 L (3.80-5.40) m/uL Hgb 7.0 L (11.4-16.0) gm/dL Hct 21.4 L (34.0-46.0) % Plt Count 126 L (150-450) k/uL Neutrophils # (1.3-7.7) k/uL Lymphocytes # 0.8 L (1.0-4.8) k/uL ABG pH (7.35-7.45) ABG pCO2 (35-45) mmHg ABG pO2 (83-108) mmHg ABG HCO3 (21-25) mmol/L ABG O2 Saturation (94-97) % Sodium 135 L (137-145) mmol/L Potassium (3.5-5.1) mmol/L Chloride 110 H (98-107) mmol/L Carbon Dioxide 21 L (21.6-31.8) mmol/L BUN 36 H (9.0-27.0) mg/dL Creatinine 1.39 H (0.52-1.04) mg/dL Est GFR (CKD-EPI)AfAm (60.0-200.0) Est GFR (CKD-EPI)NonAf (60.0-200.0) BUN/Creatinine Ratio (12.00-20.00) Ratio Glucose (70-110) mg/dL POC Glucose (mg/dL) 118 H (75-99) mg/dL Calcium 7.4 L (8.7-10.3) mg/dL Alkaline Phosphatase 34 L (38-126) U/L Total Protein 4.2 L (6.2-8.2) g/dL Albumin 2.1 L (3.80-4.90) g/dL Albumin/Globulin Ratio (1.60-3.17) g/dL Crossmatch 07/24/20 Range/Units 07:08 WBC (3.8-10.6) k/uL RBC (3.80-5.40) m/uL Hgb (11.4-16.0) gm/dL Hct (34.0-46.0) % Plt Count (150-450) k/uL Neutrophils # (1.3-7.7) k/uL Lymphocytes # (1.0-4.8) k/uL ABG pH (7.35-7.45) ABG pCO2 (35-45) mmHg ABG pO2 159 H (83-108) mmHg ABG HCO3 (21-25) mmol/L ABG O2 Saturation 99.9 H (94-97) % Sodium (137-145) mmol/L Potassium (3.5-5.1) mmol/L Chloride (98-107) mmol/L Carbon Dioxide (21.6-31.8) mmol/L BUN (9.0-27.0) mg/dL Creatinine (0.52-1.04) mg/dL Est GFR (CKD-EPI)AfAm (60.0-200.0) Est GFR (CKD-EPI)NonAf (60.0-200.0) BUN/Creatinine Ratio (12.00-20.00) Ratio Glucose (70-110) mg/dL POC Glucose (mg/dL) (75-99) mg/dL Calcium (8.7-10.3) mg/dL Alkaline Phosphatase (38-126) U/L Total Protein (6.2-8.2) g/dL Albumin (3.80-4.90) g/dL Albumin/Globulin Ratio (1.60-3.17) g/dL Crossmatch Assessment and Plan (1) Hip fracture Current Visit: Yes Status: Acute Code(s): S72.009A - FRACTURE OF UNSP PART OF NECK OF UNSP FEMUR, INIT SNOMED Code(s): 289308159 (2) Atrial fibrillation with RVR Current Visit: No Status: Acute Code(s): I48.91 - UNSPECIFIED ATRIAL FIBRILLATION SNOMED Code(s): 385770378585447 (3) History of atrial fibrillation Current Visit: No Status: Chronic Code(s): Z86.79 - PERSONAL HISTORY OF OTHER DISEASES OF THE CIRCULATORY SYSTEM SNOMED Code(s): 572634733 (4) History of hyperlipidemia Current Visit: No Status: Chronic Code(s): Z86.39 - PERSONAL HISTORY OF ENDO, NUTRITIONAL AND METABOLIC DISEASE SNOMED Code(s): 100995933 (5) History of hypertension Current Visit: No Status: Chronic Code(s): Z86.79 - PERSONAL HISTORY OF OT HER DISEASES OF THE CIRCULATORY SYSTEM SNOMED Code(s): 988347498 Plan: Continue support. Check CBC and cMP in aM See orders. Appreciate critical care team Hold antihypertensives.
--- NOTE | 2020-07-24 08:48 | P.PN ---
Subjective Progress Note Date: 07/24/20 Principal diagnosis: status post IM nail right subtrochanteric femur fracture patient was examined at bedside in the ICU. Patient was reintubated in the PACU yesterday after failing BiPAP treatment. she is being followed by internal medicine, cardiology, pulmonology and orthopedics. After discussion with the nurse today in the ICU, we will likely try to wean off. She was reactive tubercle stimulus today at bedside. It was noted her hemoglobin did drop 7 on today's CBC drawing. Objective - Vital Signs Vital signs: Vital Signs Temp 97.6 F 07/24/20 08:00 Pulse 64 07/24/20 08:00 Resp 20 07/24/20 08:00 BP 139/48 07/24/20 08:00 Pulse Ox 100 07/24/20 08:00 Intake & Output 07/23/20 07/24/20 07/24/20 18:59 06:59 18:59 Intake Total 2698.657 1565.968 175.449 Output Total 630 342 340 Balance 2068.657 1223.968 -164.551 Weight 92.5 kg Intake: IV 2380 1400 160 LR 280 100 Lactated Ringers 1,000 ml 1000 @ 999 mls/hr IV .Q1H1M [facility] Rx#:[id number] Sodium Chloride 0.9% 1, 800 160 000 ml @ 80 mls/hr IV . [id number] [facility] Rx#:[id number] Sodium Chloride 0.9% 500 500 ml 500 ml @ 999 mls/hr IV .Q31M [facility] Rx#:[id number] Intake, IV Titration 8.657 165.968 15.449 Amount Norepinephrine 4 mg In 15.449 Sodium Chloride 0.9% 250 ml @ 0.05 MCG/KG/MIN 17. 621 mls/hr IV .[id number] [facility] Rx#:[id number] propofoL 1,000 mg In 8.657 165.968 Empty Bag 1 bag @ Titrate IV .Q0M [facility] Rx#: [id number] Blood Product 310 Rc As-1 Unit 310 [id number] Output: Urine 430 342 340 Estimated Blood Loss 200 Other: Voiding Method Indwelling Catheter Indwelling Catheter ABP, PAP, CO, CI - Last Documented Arterial Blood Pressure 141/32 - Exam right lower extremity: Postop bandages are in good position and condition, no obvious drainage. Soft tissue swelling present throughout the lower extremity, compartments are soft and compressible. Calf is soft with palpation. Patient is able to wiggle the toes. Dorsalis pedis pulses 2+. - Labs CBC & Chem 7: 07/24/20 04:05 07/24/20 04:05 Labs: Abnormal Lab Results - Last 24 Hours (Table) 07/23/20 07/23/20 07/23/20 Range/Units 05:48 07:41 11:25 WBC (3.8-10.6) k/uL RBC (3.80-5.40) m/uL Hgb (11.4-16.0) gm/dL Hct (34.0-46.0) % Plt Count (150-450) k/uL Neutrophils # (1.3-7.7) k/uL Lymphocytes # (1.0-4.8) k/uL ABG pH (7.35-7.45) ABG pCO2 (35-45) mmHg ABG pO2 (83-108) mmHg ABG HCO3 (21-25) mmol/L ABG O2 Saturation (94-97) % Sodium (137-145) mmol/L Potassium (3.5-5.1) mmol/L Chloride (98-107) mmol/L Carbon Dioxide 19.9 L (21.6-31.8) mmol/L BUN 34.0 H (9.0-27.0) mg/dL Creatinine (0.52-1.04) mg/dL Est GFR (CKD-EPI)AfAm 47.7 L (60.0-200.0) Est GFR (CKD-EPI)NonAf 41.2 L (60.0-200.0) BUN/Creatinine Ratio 28.33 H (12.00-20.00) Ratio Glucose 173 H (70-110) mg/dL POC Glucose (mg/dL) 142 H (75-99) mg/dL Calcium 8.3 L (8.7-10.3) mg/dL Alkaline Phosphatase (38-126) U/L Total Protein 5.5 L (6.2-8.2) g/dL Albumin 3.30 L (3.80-4.90) g/dL Albumin/Globulin Ratio 1.50 L (1.60-3.17) g/dL Crossmatch See Detail 07/23/20 07/23/20 07/23/20 Range/Units 11:30 11:30 16:40 WBC 12.6 H (3.8-10.6) k/uL RBC 2.56 L (3.80-5.40) m/uL Hgb 8.3 L (11.4-16.0) gm/dL Hct 24.9 L (34.0-46.0) % Plt Count (150-450) k/uL Neutrophils # 11.8 H (1.3-7.7) k/uL Lymphocytes # 0.3 L (1.0-4.8) k/uL ABG pH (7.35-7.45) ABG pCO2 (35-45) mmHg ABG pO2 (83-108) mmHg ABG HCO3 (21-25) mmol/L ABG O2 Saturation (94-97) % Sodium 134 L (137-145) mmol/L Potassium 5.3 H (3.5-5.1) mmol/L Chloride 110 H (98-107) mmol/L Carbon Dioxide 19 L (21.6-31.8) mmol/L BUN 34 H (9.0-27.0) mg/dL Creatinine 1.28 H (0.52-1.04) mg/dL Est GFR (CKD-EPI)AfAm (60.0-200.0) Est GFR (CKD-EPI)NonAf (60.0-200.0) BUN/Creatinine Ratio (12.00-20.00) Ratio Glucose 198 H (70-110) mg/dL POC Glucose (mg/dL) 257 H (75-99) mg/dL Calcium 7.7 L (8.7-10.3) mg/dL Alkaline Phosphatase (38-126) U/L Total Protein (6.2-8.2) g/dL Albumin (3.80-4.90) g/dL Albumin/Globulin Ratio (1.60-3.17) g/dL Crossmatch 07/23/20 07/23/20 07/23/20 Range/Units 17:25 19:32 23:41 WBC (3.8-10.6) k/uL RBC (3.80-5.40) m/uL Hgb (11.4-16.0) gm/dL Hct (34.0-46.0) % Plt Count (150-450) k/uL Neutrophils # (1.3-7.7) k/uL Lymphocytes # (1.0-4.8) k/uL ABG pH 7.18 L* (7.35-7.45) ABG pCO2 51 H (35-45) mmHg ABG pO2 78 L 124 H (83-108) mmHg ABG HCO3 19 L (21-25) mmol/L ABG O2 Saturation 93.9 L 99.5 H (94-97) % Sodium (137-145) mmol/L Potassium (3.5-5.1) mmol/L Chloride (98-107) mmol/L Carbon Dioxide (21.6-31.8) mmol/L BUN (9.0-27.0) mg/dL Creatinine (0.52-1.04) mg/dL Est GFR (CKD-EPI)AfAm (60.0-200.0) Est GFR (CKD-EPI)NonAf (60.0-200.0) BUN/Creatinine Ratio (12.00-20.00) Ratio Glucose (70-110) mg/dL POC Glucose (mg/dL) 117 H (75-99) mg/dL Calcium (8.7-10.3) mg/dL Alkaline Phosphatase (38-126) U/L Total Protein (6.2-8.2) g/dL Albumin (3.80-4.90) g/dL Albumin/Globulin Ratio (1.60-3.17) g/dL Crossmatch 07/23/20 07/24/20 07/24/20 Range/Units 23:49 04:05 04:05 WBC (3.8-10.6) k/uL RBC 2.23 L (3.80-5.40) m/uL Hgb 7.0 L (11.4-16.0) gm/dL Hct 21.4 L (34.0-46.0) % Plt Count 126 L (150-450) k/uL Neutrophils # (1.3-7.7) k/uL Lymphocytes # 0.8 L (1.0-4.8) k/uL ABG pH (7.35-7.45) ABG pCO2 (35-45) mmHg ABG pO2 (83-108) mmHg ABG HCO3 (21-25) mmol/L ABG O2 Saturation (94-97) % Sodium 135 L (137-145) mmol/L Potassium (3.5-5.1) mmol/L Chloride 110 H (98-107) mmol/L Carbon Dioxide 21 L (21.6-31.8) mmol/L BUN 36 H (9.0-27.0) mg/dL Creatinine 1.39 H (0.52-1.04) mg/dL Est GFR (CKD-EPI)AfAm (60.0-200.0) Est GFR (CKD-EPI)NonAf (60.0-200.0) BUN/Creatinine Ratio (12.00-20.00) Ratio Glucose (70-110) mg/dL POC Glucose (mg/dL) 118 H (75-99) mg/dL Calcium 7.4 L (8.7-10.3) mg/dL Alkaline Phosphatase 34 L (38-126) U/L Total Protein 4.2 L (6.2-8.2) g/dL Albumin 2.1 L (3.80-4.90) g/dL Albumin/Globulin Ratio (1.60-3.17) g/dL Crossmatch 07/24/20 Range/Units 07:08 WBC (3.8-10.6) k/uL RBC (3.80-5.40) m/uL Hgb (11.4-16.0) gm/dL Hct (34.0-46.0) % Plt Count (150-450) k/uL Neutrophils # (1.3-7.7) k/uL Lymphocytes # (1.0-4.8) k/uL ABG pH (7.35-7.45) ABG pCO2 (35-45) mmHg ABG pO2 159 H (83-108) mmHg ABG HCO3 (21-25) mmol/L ABG O2 Saturation 99.9 H (94-97) % Sodium (137-145) mmol/L Potassium (3.5-5.1) mmol/L Chloride (98-107) mmol/L Carbon Dioxide (21.6-31.8) mmol/L BUN (9.0-27.0) mg/dL Creatinine (0.52-1.04) mg/dL Est GFR (CKD-EPI)AfAm (60.0-200.0) Est GFR (CKD-EPI)NonAf (60.0-200.0) BUN/Creatinine Ratio (12.00-20.00) Ratio Glucose (70-110) mg/dL POC Glucose (mg/dL) (75-99) mg/dL Calcium (8.7-10.3) mg/dL Alkaline Phosphatase (38-126) U/L Total Protein (6.2-8.2) g/dL Albumin (3.80-4.90) g/dL Albumin/Globulin Ratio (1.60-3.17) g/dL Crossmatch Assessment and Plan Assessment: status post IM nail right subtrochanteric fracture Plan: pain control, continue with current medication DVT prophylaxis, appreciate other medical specialties of when to restart Eliquis One unit of packed RBCs has been ordered Dressing change tomorrow weightbearing status: Toe-touch with walker We'll continue to follow patient during inpatient stay Time with Patient: Less than 30
[2020-07-24] MEDS ORDERED: DEXMEDETOMIDINE/0.9% NACL(PMX) 400 MCG in EMPTY BAG 1 BAG IV SCH (09:15)
--- NOTE | 2020-07-24 09:40 | P.PN ---
Progress Note - Text Progress Note Date: 07/24/20 I reviewed the notes of Lamar godfrey and I agree with them. Patient was seen and examined this morning at bedside in the ICU with nursing available. Patient is responsive however is highly sedated at this time and requiring minimal pressor support. She is intubated as well. She failed BiPAP after surgery and for airway protection and she was reintubated. This was discussed with the family preoperatively and they were okay with this as a prolonged recovery. She is moving all 4 extremities very well. Her incision and dressing are clean dry and intact. She has 5 out of 5 strength in dorsi flexion and plantar flexion and EHL FHL when prompted to move these. Her exam is however difficult due to the sedation at this time. She has palpable distal pulses DP and PT bilaterally her compartments are soft and compressible. Vital signs are stable at this time. I spoke with her son Tray this morning and explained the situation to him and he was very appreciative of the care at the hospital. He states that he will be by later to visit his mom. I discussed with him that the ICU team will attempt to wean her to extubate today. We will also wean her off of pressors as well as sedation to help with this. She will need blood today and so we will transfuse 1 unit of packed red cells today to help with her pressure as well as her low hemoglobin. He was comfortable with this and appreciated over the care. We will continue to follow her during her stay very closely.
--- NOTE | 2020-07-24 10:24 | CDI ---
Documentation Clarification Form Date: 07/24/2020 10:11:06 AM From: Marla Sandoval RN, CCDS Admit Date: 07/21/2020 09:57:00 PM Patient Name: Jeanna Fajardo Visit Number: [id number] ATTENTION: The Clinical Documentation Specialists (CDI) and [facility] Coding Staff appreciate your assistance in clarifying documentation. Please respond to the clarification below the line at the bottom and electronically sign. The CDI & [facility] Coding staff will review the response and follow-up if needed. Please note: Queries are made part of the Legal Health Record. If you have any questions, please contact the author of this message via ITS. Dr. Orion Bose Please render your opinion on the clinical significance of the patients declining hemoglobin/hematocrit levels. History/Risk Factors: Anemia, "kidney function 3.5", renal disease, aortic stenosis, HTN, CAD, DM Clinical indicators: 07/24 OA Progress Note: "It was noted her hemoglobin did drop 7 on today's CBC drawing. She will need blood today and so we will transfuse 1 unit of packed cells today to help with her pressure as well as her low hemoglobin" 07/21-07/24 Hgb: 9.7/8.6/8.3/7 Hct: 29.5/26.4/24.9/21.4 Treatment: 07/24 1 U PRBC's 07/23 LR 1 L IVF Bolus In order to capture the severity of condition, please clarify if the labs/clinical indicators signify: Acute on chronic blood loss anemia Chronic blood loss anemia Iron deficiency anemia Drug induced anemia Nutritional anemia Anemia of chronic kidney disease Unable to determine Other, please specify anemia is most likely related to chronic disease and acute blood loss related to orthopedic surgery (Last Form Revision: December 2019) MTDD
--- NOTE | 2020-07-24 10:29 | ECHOF ---
Referral Reason:afib MEASUREMENTS -------- HEIGHT: 160.0 cm WEIGHT: 92.1 kg BP: 154/38 RVIDd: 3.3 cm (< 3.3) IVSd: 1.4 cm (0.6 - 1.1) LVIDd: 3.8 cm (3.9 - 5.3) LVPWd: 1.5 cm (0.6 - 1.1) IVSs: 2.4 cm LVIDs: 1.9 cm LVPWs: 2.2 cm Ao Diam: 2.9 cm (2.0 - 3.7) AV Cusp: 1.4 cm (1.5 - 2.6) LA Diam: 2.8 cm (2.7 - 3.8) MV EXCURSION: 12.842 mm (> 18.000) MV EF SLOPE: 22 mm/s (70 - 150) EPSS: 1.1 cm MV E Elan: 1.10 m/s MV DecT: 442 ms MV A Elan: 1.46 m/s MV E/A Ratio: 0.76 RAP: 5.00 mmHg RVSP: 62.39 mmHg FINDINGS -------- Sinus rhythm. This was a technically difficult study with suboptimal views. The left ventricular size is normal. There is moderate concentric left ventricular hypertrophy. O verall left ventricular systolic function is normal with, an EF between 55 - 60 %. The right ventricle is mildly enlarged. The left atrial size is normal. The right atrial size is normal. Lumason used There is no evidence of aortic regurgitation. TAVR Moderate mitral annular calcification present. Mild mitral regurgitation is present. The peak an d mean MV gradients are 15.10mmHg 4.40mmHg as measured by doppler. Moderate mitral stenosis. The tricuspid valve appears structurally normal. Moderate tricuspid regurgitation present. There is moderate pulmonary hypertension. The right ventricular systolic pressure, as measured by Doppler , is 62.39mmHg. There is no pulmonic regurgitation present. The aortic root size is normal. IVC Not well visulized. There is no pericardial effusion. CONCLUSIONS -------- 1. This was a technically difficult study with suboptimal views. 2. The left ventricular size is normal. 3. There is moderate concentric left ventricular hypertrophy. 4. Overall left ventricular systolic function is normal with, an EF between 55 - 60 %. 5. The right ventricle is mildly enlarged. 6. TAVR 7. Moderate mitral annular calcification present. 8. Mild mitral regurgitation is present. 9. The peak and mean MV gradients are 15.10mmHg 4.40mmHg as measured by doppler. 10. Moderate mitral stenosis. 11. Moderate tricuspid regurgitation present. 12. There is moderate pulmonary hypertension. 13. There is no pericardial effusion. YARD ATTENDANT: Ashley Camilo RDCS
--- NOTE | 2020-07-24 10:54 | CDI ---
Documentation Clarification Form Date: 07/24/2020 10:33:06 AM From: Marla Sandoval RN, CCDS Admit Date: 07/21/2020 09:57:00 PM Patient Name: Jeanna Fajardo Visit Number: [id number] ATTENTION: The Clinical Documentation Specialists (CDI) and [facility] Coding Staff appreciate your assistance in clarifying documentation. Please respond to the clarification below the line at the bottom and electronically sign. The CDI & [facility] Coding staff will review the response and follow-up if needed. Please note: Queries are made part of the Legal Health Record. If you have any questions, please contact the author of this message via ITS. Dr. Seth CHF is documented in the Cardiology and Pulmonary Consults and progress notes and requires further specificity. History/Risk Factors: Paroxysmal atrial fib, DM2, CAD, HTN, CKD, Stents, TAVR, acute hypercapnic respiratory failure Clinical Indicators: 07/22 Cardiology Consult and 07/23 Progress note:"chest x-ray showed pulmonary fibrosis with questionable mild congestive heart failure." 07/23 Pulmonary Consult: "History of present illness: Chest x-ray on admission showed pulmonary interstitial density consistent with pulmonary fibrosis, mild heart failure could not be excluded. Chest x-ray was obtained showing interstitial prominence and possibility of mild heart failure. Acute hypercapnic respiratory failure related to acute exacerbation of CHF, chest x-ray showing findings consistent with pulmonary edema, and hypoventilation related to operative sedation." 07/23 1645 VS/Pulse OX: Temp 97.9, HR 71, RR 16, B/P 83/43, Spo2 94% on 80% MV 07/23 BNP: 12,400 07/24 Echocardiogram Results: 55-60% Moderate concentric LVH. Moderate mitral stenosis, Moderate tricuspid Regurg, TAVR 07/23 Chest X Ray:" There is pulmonary edema that is the same or worse than recent exam. Findings consistent with congestive heart failure." Treatment: Lasix 40 mg IVP Q 12 hrs 07/23-07/24 Dobutamine Gtt @ 2.5 mcg/kg/hr 07/22-07/23 Toprol 100 mg PO QD 07/23 0.9%NS 500 IVF bolus In your professional opinion, can you please clarify the acuity and type of CHF if known? Diastolic Heart Failure: Acute Acute on Chronic Systolic & Diastolic Heart Failure: Acute Acute on Chronic Heart Failure Unable to Determine XXX Other, please specify (Last Revision: January 2018) MTDD
--- NOTE | 2020-07-24 11:06 | CDI ---
Documentation Clarification Form Date: 07/24/2020 10:55:18 AM From: Marla Sandoval RN, CCDS Admit Date: 07/21/2020 09:57:00 PM Patient Name: Jeanna Fajardo Visit Number: [id number] ATTENTION: The Clinical Documentation Specialists (CDI) and [facility] Coding Staff appreciate your assistance in clarifying documentation. Please respond to the clarification below the line at the bottom and electronically sign. The CDI & [facility] Coding staff will review the response and follow-up if needed. Please note: Queries are made part of the Legal Health Record. If you have any questions, please contact the author of this message via ITS. Dr. Orion Bose CKD is documented in the H&P and Consults and requires further specificity. History/Risk Factors: 07/07 Patients Historical BUN/CR/GFR 38/1.4/34 HX: Anemia, HTN, TAVR, DM2, CAD, Renal Disease Clinical Indicators: 07/22 H&P and Consults: PMH: ""kidney function-3.5" 07/23 Pulmonary Consult: "History of chronic kidney disease, specifically " 07/21-07/24 Labs: BUN: 37/34/36 Creatinine: 1.29/1.28/1.39 GFR: 38/35 BUN/CR. ratio 28.33 Treatment: 07/23-07/24 Dobutamine Gtt @ 2.5 mcg/kg/min 07/23 & 07/24 Lasix 40 mg IVP x 1 dose 07/24 Lasix 40 mg IVP q 12 hrs Apresoline 75 mg PO TID 07/22-07/23 Toprol XL 100 mg PO Daily Levophed GTT titrate for B/P 07/23 0.9%NS IVF bolus 500 cc In order to capture the severity of condition, please clarify the stage of the CKD, if known: CKD Stage 1 (GFR > 90) CKD Stage 2 (GFR 60-89) CKD Stage 3 (GFR 30-59), this is the correct diagnosis CKD Stage 4 (GFR 15-29) Other, please specify Unable to determine (Last Revision: November 2019) MTDD
--- NOTE | 2020-07-24 11:14 | P.PN ---
Subjective this is a pleasant 84-year-old female past medical history significant for paroxysmal atrial fibrillation on Eliquis, dyslipidemia, peripheral vascular disease with prior iliofemoral bypass December 2017, aortic stenosis status post TAVR December 2017, mild nonobstructive coronary artery disease and chronic kidney disease. She follows in the office with Dr. Seth. Echocardiogram reviewed, LV function preserved with ejection fraction 55-60%, no evidence of aortic regurgitation, history of TAVR, mild mitral regurgitation, moderate mitral stenosis with a mean gradient of 4 mmHg, moderate tricuspid regurgitation and moderate pulmonary hypertension with an RVSP of 62 mmHg. Yesterday she underwent close reduction and IM nailing of the right hip. Initially post-operatively she was extubated however was re-intubated secondary to agonal breathing in PACU. Prior to going into the OR she received 1 unit of PRBC's. Intra-operatively she had 400 cc of fluids. Chest xray post-op revealed pulmonary edema and congestion worse than previous exam on admission. She was given IV lasix last night and again this morning. She also was hypotensive prompting orders for dobutamine and levophed infusions. Currently she is seen and examined sitting up in bed maintained on mechanical ventilation. Her eyes are closed but she is frequently leaning forward and lifting her arms despite being on sedation. Blood pressures 120/40 now. There was an attempted levophed wean this morning but she did not tolerate. Dobutamine was discontinued per face painter this morning. Pulmonary plans to attempt extubation this afternoon if she tolerates per the nurse. GENERAL: Maintained on mechanical ventilation. NECK: Supple without JVD or thyromegaly. LUNGS: Bibasilar rales, no wheezes or rhonchi. HEART: Regular rate and rhythm with systolic ejection murmur at the base, no rubs or gallops. S1 and S2 heard. EXTREMITIES: Normal range of motion, no edema. No clubbing or cyanosis. Peripheral pulses intact. ASSESSMENT Fall Right femur fracture status post surgical repair, postoperative day #1 Acute hypercapnic respiratory failure Acute diastolic heart failure Paroxysmal atrial fibrillation on eliquis, currently maintaining sinus mechanism Valvular heart disease status post TAVR Peripheral vascular disease status post iliofemoral bypass Hypertension Dyslipidemia Diabetes mellitus Nonobstructive coronary artery disease PLAN Initiate IV Lasix 40 mg twice a day. Obtain EKG now. Check troponin levels. Follow renal function and electrolytes in the morning. Document accurate intake and output along with daily weights. Further recommendations to follow based on clinical course. Nurse Practitioner note has been reviewed, I agree with a documented findings and plan of care. Patient was seen and examined. Objective - Vital Signs Vital signs: Vital Signs Temp 97.6 F 07/24/20 08:00 Pulse 60 07/24/20 10:30 Resp 20 07/24/20 10:30 BP 107/60 07/24/20 10:30 Pulse Ox 99 07/24/20 10:30 Intake & Output 07/23/20 07/24/20 07/24/20 18:59 06:59 18:59 Intake Total 2698.657 1565.968 396.443 Output Total 630 342 530 Balance 2068.657 1223.968 -133.557 Weight 92.5 kg Intake: IV 2380 1400 200 LR 280 100 Lactated Ringers 1,000 ml 1000 @ 999 mls/hr IV .Q1H1M [facility] Rx#:[id number] Sodium Chloride 0.9% 1, 800 200 000 ml @ 20 mls/hr IV . Q24H [facility] Rx#:[id number] Sodium Chloride 0.9% 500 500 ml 500 ml @ 999 mls/hr IV .Q31M [facility] Rx#:[id number] Intake, IV Titration 8.657 165.968 196.443 Amount DOBUTamine DRIP 500 mg In 83.518 Dextrose/Water 1 250ml. bag @ 2.5 MCG/KG/MIN 6. 559 mls/hr IV .Q24H [facility] Rx#:[id number] Norepinephrine 4 mg In 25.552 Sodium Chloride 0.9% 250 ml @ 0.05 MCG/KG/MIN 17. 621 mls/hr IV .[id number] [facility] Rx#:[id number] propofoL 1,000 mg In 8.657 165.968 87.373 Empty Bag 1 bag @ Titrate IV .Q0M [facility] Rx#: [id number] Blood Product 310 Rc As-1 Unit 310 [id number] Output: Urine 430 342 530 Estimated Blood Loss 200 Other: Voiding Method Indwelling Catheter Indwelling Catheter ABP, PAP, CO, CI - Last Documented Arterial Blood Pressure 116/35 - Labs CBC & Chem 7: 07/24/20 04:05 07/24/20 04:05 Labs: Abnormal Lab Results - Last 24 Hours (Table) 07/23/20 07/23/20 07/23/20 Range/Units 07:41 11:25 11:30 WBC 12.6 H (3.8-10.6) k/uL RBC 2.56 L (3.80-5.40) m/uL Hgb 8.3 L (11.4-16.0) gm/dL Hct 24.9 L (34.0-46.0) % Plt Count (150-450) k/uL Neutrophils # 11.8 H (1.3-7.7) k/uL Lymphocytes # 0.3 L (1.0-4.8) k/uL ABG pH (7.35-7.45) ABG pCO2 (35-45) mmHg ABG pO2 (83-108) mmHg ABG HCO3 (21-25) mmol/L ABG O2 Saturation (94-97) % Sodium (137-145) mmol/L Potassium (3.5-5.1) mmol/L Chloride (98-107) mmol/L Carbon Dioxide (22-30) mmol/L BUN (7-17) mg/dL Creatinine (0.52-1.04) mg/dL Glucose (74-99) mg/dL POC Glucose (mg/dL) 142 H (75-99) mg/dL Calcium (8.4-10.2) mg/dL Alkaline Phosphatase (38-126) U/L Total Protein (6.3-8.2) g/dL Albumin (3.5-5.0) g/dL Crossmatch See Detail 07/23/20 07/23/20 07/23/20 Range/Units 11:30 16:40 17:25 WBC (3.8-10.6) k/uL RBC (3.80-5.40) m/uL Hgb (11.4-16.0) gm/dL Hct (34.0-46.0) % Plt Count (150-450) k/uL Neutrophils # (1.3-7.7) k/uL Lymphocytes # (1.0-4.8) k/uL ABG pH 7.18 L* (7.35-7.45) ABG pCO2 51 H (35-45) mmHg ABG pO2 78 L (83-108) mmHg ABG HCO3 19 L (21-25) mmol/L ABG O2 Saturation 93.9 L (94-97) % Sodium 134 L (137-145) mmol/L Potassium 5.3 H (3.5-5.1) mmol/L Chloride 110 H (98-107) mmol/L Carbon Dioxide 19 L (22-30) mmol/L BUN 34 H (7-17) mg/dL Creatinine 1.28 H (0.52-1.04) mg/dL Glucose 198 H (74-99) mg/dL POC Glucose (mg/dL) 257 H (75-99) mg/dL Calcium 7.7 L (8.4-10.2) mg/dL Alkaline Phosphatase (38-126) U/L Total Protein (6.3-8.2) g/dL Albumin (3.5-5.0) g/dL Crossmatch 07/23/20 07/23/20 07/23/20 Range/Units 19:32 23:41 23:49 WBC (3.8-10.6) k/uL RBC (3.80-5.40) m/uL Hgb (11.4-16.0) gm/dL Hct (34.0-46.0) % Plt Count (150-450) k/uL Neutrophils # (1.3-7.7) k/uL Lymphocytes # (1.0-4.8) k/uL ABG pH (7.35-7.45) ABG pCO2 (35-45) mmHg ABG pO2 124 H (83-108) mmHg ABG HCO3 (21-25) mmol/L ABG O2 Saturation 99.5 H (94-97) % Sodium (137-145) mmol/L Potassium (3.5-5.1) mmol/L Chloride (98-107) mmol/L Carbon Dioxide (22-30) mmol/L BUN (7-17) mg/dL Creatinine (0.52-1.04) mg/dL Glucose (74-99) mg/dL POC Glucose (mg/dL) 117 H 118 H (75-99) mg/dL Calcium (8.4-10.2) mg/dL Alkaline Phosphatase (38-126) U/L Total Protein (6.3-8.2) g/dL Albumin (3.5-5.0) g/dL Crossmatch 07/24/20 07/24/20 07/24/20 Range/Units 04:05 04:05 07:08 WBC (3.8-10.6) k/uL RBC 2.23 L (3.80-5.40) m/uL Hgb 7.0 L (11.4-16.0) gm/dL Hct 21.4 L (34.0-46.0) % Plt Count 126 L (150-450) k/uL Neutrophils # (1.3-7.7) k/uL Lymphocytes # 0.8 L (1.0-4.8) k/uL ABG pH (7.35-7.45) ABG pCO2 (35-45) mmHg ABG pO2 159 H (83-108) mmHg ABG HCO3 (21-25) mmol/L ABG O2 Saturation 99.9 H (94-97) % Sodium 135 L (137-145) mmol/L Potassium (3.5-5.1) mmol/L Chloride 110 H (98-107) mmol/L Carbon Dioxide 21 L (22-30) mmol/L BUN 36 H (7-17) mg/dL Creatinine 1.39 H (0.52-1.04) mg/dL Glucose (74-99) mg/dL POC Glucose (mg/dL) (75-99) mg/dL Calcium 7.4 L (8.4-10.2) mg/dL Alkaline Phosphatase 34 L (38-126) U/L Total Protein 4.2 L (6.3-8.2) g/dL Albumin 2.1 L (3.5-5.0) g/dL Crossmatch
[2020-07-24 12:11] LABS: Glucose,Whole Blood 114 mg/dL (75-99)
--- NOTE | 2020-07-24 12:18 | XR ---
EXAMINATION TYPE: XR chest 1V portable DATE OF EXAM: 07/24/2020 COMPARISON: 07/23/2020 INDICATION: Tube placement TECHNIQUE: Single frontal view of the chest is obtained. FINDINGS: The heart size is mildly prominent. The pulmonary vasculature is mildly prominent, improved from comparison. Mild infiltrate is at the lung bases. There is silhouetting left diaphragm. Right costophrenic angle is obscured. Endotracheal tube tip is above the tiffanie. Nasogastric tube transverses the thorax. Right central elfego ous catheter tip is deep within the right atrium. IMPRESSION: 1. Small bilateral effusions with bibasilar infiltrates. Correlate for atelectasis or atypical pulmon ren edema. Findings are improving from comparison.
[2020-07-24 13:43] LABS: ABG Base Excess -4.2 mmol/L; ABG HCO3 21 mmol/L (21-25); ABG Oxygen Saturation 99.5 % (94-97); ABG PCO2 37 mmHg (35-45); ABG PH 7.36 (7.35-7.45); ABG PO2 124 mmHg (83-108); ABG TCO2 22 mmol/L (19-24)
[2020-07-24 13:46] LABS: Allen Test Performed? no
--- NOTE | 2020-07-24 14:07 | P.PN ---
Subjective Progress Note Date: 07/24/20 Principal diagnosis: Postoperative hypercapnic respiratory failure, unexpected. Requiring reintubation post hip surgery. 84-year-old white female patient that came into the hospital on 07/21/2020 following a fall out of her chair landing on her right hip and sustaining a right hip fracture. X-ray of the right hip and AP pelvis showed acute intertrochanteric fracture of the right femur. Moderate osteoarthritis in the hip joints. Brain CT showed mild cerebral atrophy, with minimal chronic small vessel ischemia no acute intracranial abnormality. Chest x-ray on admission s howed pulmonary interstitial density consistent with pulmonary fibrosis, mild heart failure could not be excluded. Past medical history is significant for coronary artery disease, diabetes type II, hypertension, hyperlipidemia, osteoarthritis, history of Her on 01/03/2018, previous cardiac stent placements, patient is a former smoker. In preop. Patient was seen by cardiology and cleared for surgery. She has had no recent history of chest discomfort or shortness of breath. On 07/23/2020 patient underwent closed reduction and IMN of the right hip by Dr. Betts. Following surgery patient was extubated in the recovery, however she remains very obtunded, she was placed on BiPAP support, and we were urgently consulted for ICU placement. In view of her ongoing decreased level of consciousness, we recommended the reintubation and placement in the intensive care unit. Patient is seen in intensive care unit, she is on assist-control mode of ventilation with a rate of 16, tidal volume 450, FiO2 is 80% and PEEP of 5, blood gas was obtained showing pO2 of 78, pCO2 51, and pH of 7.18. Amp bicarb was given. Patient had a right IJ triple lumen catheter placed, and right radial art line placed. She was given a liter bolus. She is in sinus mechanism, she did have an episode of transient hypotension for which fluid bolus was given, however as she started to wake up she is actually becoming hypertensive and she will be placed on sedation. Chest x-ray was obtained showing interstitial prominence and possibility of mild heart failure. We'll give the patient a dose of Lasix as well. No fever. Patient was reevaluated today on 07/24/20, patient remains on mechanical ventilation, her ventilator settings are assist control rate of 2010 volume is 450 FiO2 50% PEEP of 5. ABG showed a pO2 of 159 pCO2 of 36 pH of 7.3. Hemoglobin is 7.0, and she is to receive 1 unit of packed RBCs today. Urine output remains marginal. Blood pressure is marginal. Patient was on Dobutrex o vernight, today I have recommended stopping the the V. tach, and I recommended norepinephrine. Patient was given Lasix last night, and this morning she received 40 mg IV push times one. Considering that ABG I cut down her FiO2 down to 40%, and I discontinued Dobutrex and kept her on norepinephrine for low blood pressure titrating to a mean of 60. Patient is also on propofol at 35 mcg/kg/m, however I plan to gradually transition the patient to Precedex, hoping to extubate the patient sometime today. Once the patient is awake and appropriate, she will be given a trial of pressure support of 8 and CPAP, and if tolerated will proceed to extubating the patient. Patient is to also be seen by cardiology for her multiple cardiac issues including severe aortic stenosis. And chronic atrial fibrillation presently she is in sinus rhythm Objective - Vital Signs Vital signs: Vital Signs Temp 97.5 F L 07/24/20 12:30 Pulse 63 07/24/20 13:30 Resp 10 L 07/24/20 13:30 BP 116/45 07/24/20 13:30 Pulse Ox 98 07/24/20 13:30 Intake & Output 07/23/20 07/24/20 07/24/20 18:59 06:59 18:59 Intake Total 2698.657 1565.968 523.095 Output Total 630 342 895 Balance 2068.657 1223.968 -371.905 Weight 92.5 kg Intake: IV 2380 1400 260 LR 280 100 Lactated Ringers 1,000 ml 1000 @ 999 mls/hr IV .Q1H1M [facility] Rx#:[id number] Sodium Chloride 0.9% 1, 800 260 000 ml @ 20 mls/hr IV . Q24H [facility] Rx#:[id number] Sodium Chloride 0.9% 500 500 ml 500 ml @ 999 mls/hr IV .Q31M [facility] Rx#:[id number] Intake, IV Titration 8.657 165.968 263.095 Amount DOBUTamine DRIP 500 mg In 83.518 Dextrose/Water 1 250ml. bag @ 2.5 MCG/KG/MIN 6. 559 mls/hr IV .Q24H [facility] Rx#:[id number] Dexmedetomidine/0.9% NaCl 12.372 (Pmx) 400 mcg In Empty Bag 1 bag @ Titrate IV . Q0M [facility] Rx#:[id number] Norepinephrine 4 mg In 53.747 Sodium Chloride 0.9% 250 ml @ 0.05 MCG/KG/MIN 17. 621 mls/hr IV .[id number] [facility] Rx#:[id number] propofoL 1,000 mg In 8.657 165.968 113.458 Empty Bag 1 bag @ Titrate IV .Q0M [facility] Rx#: [id number] Blood Product 310 0 Rc As-1 Unit 310 [id number] Rc As-1 Unit 0 [id number] Output: Urine 430 342 895 Estimated Blood Loss 200 Other: Voiding Method Indwelling Catheter Indwelling Catheter Indwelling Catheter ABP, PAP, CO, CI - Last Documented Arterial Blood Pressure 107/32 - Exam GENERAL EXAM: Sedated, intubated, 84-year-old elderly female on assist-control mode of ventilation, comfortable in no apparent distress. HEENT: Head is atraumatic, normocephalic, PERRLA, EOMI, no icterus, no neck masses, endotracheal tube and orogastric tube are intact. Right IJ central line is noted. CHEST: No chest wall deformity. Symmetrical expansion. LUNGS: Equal air entry with no crackles, wheeze, rhonchi or dullness. CVS: Regular rate and rhythm, normal S1 and S2, no gallops, 2/6 systolic murmur thought the precordium. ABDOMEN: Soft, nontender. No hepatosplenomegaly, normal bowel sounds, no guarding or rigidity. EXTREMITIES: No clubbing, trace of bipedal edema, no cyanosis, 2+ pulses and upper and lower extremities. MUSCULOSKELETAL: No deformities noted SKIN: No rashes CENTRAL NERVOUS SYSTEM: Sedated, intubated. Patient was noted to be extremely restless and agitated on lower dose of propofol, hence she would be switched to Precedex, and possibly weaning today. - Labs CBC & Chem 7: 07/24/20 04:05 07/24/20 04:05 Labs: Abnormal Lab Results - Last 24 Hours (Table) 07/23/20 07/23/20 07/23/20 Range/Units 07:41 11:30 11:30 WBC 12.6 H (3.8-10.6) k/uL RBC 2.56 L (3.80-5.40) m/uL Hgb 8.3 L (11.4-16.0) gm/dL Hct 24.9 L (34.0-46.0) % Plt Count (150-450) k/uL Neutrophils # 11.8 H (1.3-7.7) k/uL Lymphocytes # 0.3 L (1.0-4.8) k/uL ABG pH (7.35-7.45) ABG pCO2 (35-45) mmHg ABG pO2 (83-108) mmHg ABG HCO3 (21-25) mmol/L ABG O2 Saturation (94-97) % Sodium 134 L (137-145) mmol/L Potassium 5.3 H (3.5-5.1) mmol/L Chloride 110 H (98-107) mmol/L Carbon Dioxide 19 L (22-30) mmol/L BUN 34 H (7-17) mg/dL Creatinine 1.28 H (0.52-1.04) mg/dL Glucose 198 H (74-99) mg/dL POC Glucose (mg/dL) (75-99) mg/dL Calcium 7.7 L (8.4-10.2) mg/dL Alkaline Phosphatase (38-126) U/L Total Protein (6.3-8.2) g/dL Albumin (3.5-5.0) g/dL Crossmatch See Detail 07/23/20 07/23/20 07/23/20 Range/Units 16:40 17:25 19:32 WBC (3.8-10.6) k/uL RBC (3.80-5.40) m/uL Hgb (11.4-16.0) gm/dL Hct (34.0-46.0) % Plt Count (150-450) k/uL Neutrophils # (1.3-7.7) k/uL Lymphocytes # (1.0-4.8) k/uL ABG pH 7.18 L* (7.35-7.45) ABG pCO2 51 H (35-45) mmHg ABG pO2 78 L 124 H (83-108) mmHg ABG HCO3 19 L (21-25) mmol/L ABG O2 Saturation 93.9 L 99.5 H (94-97) % Sodium (137-145) mmol/L Potassium (3.5-5.1) mmol/L Chloride (98-107) mmol/L Carbon Dioxide (22-30) mmol/L BUN (7-17) mg/dL Creatinine (0.52-1.04) mg/dL Glucose (74-99) mg/dL POC Glucose (mg/dL) 257 H (75-99) mg/dL Calcium (8.4-10.2) mg/dL Alkaline Phosphatase (38-126) U/L Total Protein (6.3-8.2) g/dL Albumin (3.5-5.0) g/dL Crossmatch 07/23/20 07/23/20 07/24/20 Range/Units 23:41 23:49 04:05 WBC (3.8-10.6) k/uL RBC (3.80-5.40) m/uL Hgb (11.4-16.0) gm/dL Hct (34.0-46.0) % Plt Count (150-450) k/uL Neutrophils # (1.3-7.7) k/uL Lymphocytes # (1.0-4.8) k/uL ABG pH (7.35-7.45) ABG pCO2 (35-45) mmHg ABG pO2 (83-108) mmHg ABG HCO3 (21-25) mmol/L ABG O2 Saturation (94-97) % Sodium 135 L (137-145) mmol/L Potassium (3.5-5.1) mmol/L Chloride 110 H (98-107) mmol/L Carbon Dioxide 21 L (22-30) mmol/L BUN 36 H (7-17) mg/dL Creatinine 1.39 H (0.52-1.04) mg/dL Glucose (74-99) mg/dL POC Glucose (mg/dL) 117 H 118 H (75-99) mg/dL Calcium 7.4 L (8.4-10.2) mg/dL Alkaline Phosphatase 34 L (38-126) U/L Total Protein 4.2 L (6.3-8.2) g/dL Albumin 2.1 L (3.5-5.0) g/dL Crossmatch 07/24/20 07/24/20 07/24/20 Range/Units 04:05 07:08 12:09 WBC (3.8-10.6) k/uL RBC 2.23 L (3.80-5.40) m/uL Hgb 7.0 L (11.4-16.0) gm/dL Hct 21.4 L (34.0-46.0) % Plt Count 126 L (150-450) k/uL Neutrophils # (1.3-7.7) k/uL Lymphocytes # 0.8 L (1.0-4.8) k/uL ABG pH (7.35-7.45) ABG pCO2 (35-45) mmHg ABG pO2 159 H (83-108) mmHg ABG HCO3 (21-25) mmol/L ABG O2 Saturation 99.9 H (94-97) % Sodium (137-145) mmol/L Potassium (3.5-5.1) mmol/L Chloride (98-107) mmol/L Carbon Dioxide (22-30) mmol/L BUN (7-17) mg/dL Creatinine (0.52-1.04) mg/dL Glucose (74-99) mg/dL POC Glucose (mg/dL) 114 H (75-99) mg/dL Calcium (8.4-10.2) mg/dL Alkaline Phosphatase (38-126) U/L Total Protein (6.3-8.2) g/dL Albumin (3.5-5.0) g/dL Crossmatch 07/24/20 Range/Units 13:38 WBC (3.8-10.6) k/uL RBC (3.80-5.40) m/uL Hgb (11.4-16.0) gm/dL Hct (34.0-46.0) % Plt Count (150-450) k/uL Neutrophils # (1.3-7.7) k/uL Lymphocytes # (1.0-4.8) k/uL ABG pH (7.35-7.45) ABG pCO2 (35-45) mmHg ABG pO2 124 H (83-108) mmHg ABG HCO3 (21-25) mmol/L ABG O2 Saturation 99.5 H (94-97) % Sodium (137-145) mmol/L Potassium (3.5-5.1) mmol/L Chloride (98-107) mmol/L Carbon Dioxide (22-30) mmol/L BUN (7-17) mg/dL Creatinine (0.52-1.04) mg/dL Glucose (74-99) mg/dL POC Glucose (mg/dL) (75-99) mg/dL Calcium (8.4-10.2) mg/dL Alkaline Phosphatase (38-126) U/L Total Protein (6.3-8.2) g/dL Albumin (3.5-5.0) g/dL Crossmatch Assessment and Plan Assessment: Unexpected Postoperative hypercapnic respiratory failure related to acute exacerbation of systolic CHF, chest x-ray showing findings consistent with pulmonary edema, acute systolic congestive heart failure. and hypoventilation related to operative sedation. Patient was reintubated in the PACU and transferred to the ICU. Patient was extubated in the recovery room, but had to be reintubated for the above specific issues. Status post. 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 Continue hemodynamic support. Titrate the norepinephrine to a mean of above 65. Transition propofol to Precedex, possibly consider weaning trials and extubation today. Continue pain control Resume home meds and cardiac meds. Cardiology to see her on consultation. We'll continue to follow. Critical care time is 35 Time with Patient: Greater than 30
--- NOTE | 2020-07-24 15:27 | P.PN ---
Progress Note - Text Progress Note Date: 07/24/20 Pt was s/e at bedside again. She was recently extubated and doing well with NC O2. Sats in the 90s to 95. She is still sleepy but follows all commands, speaks appropriately and is in minimal pain. Son was able to come in and was at bedside with her and I was able to speak with him about his mothers progress. She is looking better, but we will continue to illicit the help of the resident assistant cna as well as medicine doctors for her care. As far has her hip is concerned, it is stable at this time. Dressing CDI and compartments are soft and compressible. He was happy to see her and appreciated the update. We will follow closely. Appreciate ICU and medical management. Notes reviewed.
[2020-07-24 17:25] LABS: Glucose,Whole Blood 120 mg/dL (75-99)
[2020-07-24] MEDS: ACETAMINOPHEN TAB 325 MG TAB PO PRN (17:50)
[2020-07-24 18:10] LABS: HCT 26.1 % (34.0-46.0); HGB 8.2 gm/dL (11.4-16.0); MCH 30.1 pg (25.0-35.0); MCHC 31.5 g/dL (31.0-37.0); MCV 95.7 fL (80.0-100.0); Mean Platelet Volume 9.5; Platelet Count 130 k/uL (150-450); RBC 2.73 m/uL (3.80-5.40)
[2020-07-24] MEDS: DILTIAZEM ORAL 30 MG TAB PO SCH (18:53)
[2020-07-24] MEDS: SODIUM CHLORIDE 0.9% 1,000 ML IV SCH (19:57)
[2020-07-24 20:08] LABS: Glucose,Whole Blood 124 mg/dL (75-99)
[2020-07-24] MEDS: METOPROLOL SUCCINATE (ER) 100 MG TAB.ER.24H PO SCH (20:19)
[2020-07-24] MEDS: FUROSEMIDE 10 MG/ML 4 ML VIAL IV SCH (21:23)
[2020-07-25 05:03] LABS: Basophils % (A) 0 %; Eosinophils # (A) 0.3 k/uL (0-0.7); Eosinophils % (A) 4 %; HCT 25.1 % (34.0-46.0); Lymphocytes % (A) 11 %; MCH 30.3 pg (25.0-35.0); MCHC 31.7 g/dL (31.0-37.0); MCV 95.7 fL (80.0-100.0); Mean Platelet Volume 10.2; Monocytes # (A) 0.5 k/uL (0-1.0); Monocytes % (A) 6 %; Neutrophils # (A) 6.6 k/uL (1.3-7.7); Neutrophils % (A) 78 %; Platelet Count 148 k/uL (150-450); RBC 2.63 m/uL (3.80-5.40); RDW 15.2 % (11.5-15.5); WBC 8.5 k/uL (3.8-10.6)
[2020-07-25 05:11] LABS: Albumin 2.5 g/dL (3.5-5.0); Calcium 7.8 mg/dL (8.4-10.2); Potassium 4.7 mmol/L (3.5-5.1); Total Bilirubin 0.7 mg/dL (0.2-1.3); Total Protein 4.9 g/dL (6.3-8.2)
[2020-07-25 06:47] LABS: Glucose,Whole Blood 147 mg/dL (75-99)
--- NOTE | 2020-07-25 07:42 | XR ---
EXAMINATION TYPE: XR chest 1V portable DATE OF EXAM: 07/25/2020 COMPARISON: 07/24/2020 INDICATION: Tube placement TECHNIQUE: Single frontal view of the chest is obtained. FINDINGS: The heart size is enlarged. The pulmonary vasculature is normal. Minimal infiltrate is at the right base. This is improved from prior study. Mild left lower lobe infi ltrate with small left pleural effusion appears stable. Right central venous catheter remains present with tip in the deep right atrium. Endotracheal tube and nasogastric tube is been removed. IMPRESSION: 1. Improving bilateral lung base infiltrates. A small left pleural effusion remains present
[2020-07-25] MEDS: ATORVASTATIN 10 MG TAB PO SCH (08:21)
[2020-07-25] MEDS: FUROSEMIDE 10 MG/ML 4 ML VIAL IV SCH (08:21)
[2020-07-25] MEDS: allopurinoL 100 MG TAB PO SCH (08:21)
[2020-07-25] MEDS: METOPROLOL SUCCINATE (ER) 100 MG TAB.ER.24H PO SCH (08:22)
[2020-07-25] MEDS: ASCORBIC ACID 500 MG TAB PO SCH (08:22)
[2020-07-25] MEDS: MULTIVITAMINS, THERA 1 EACH TAB PO SCH (08:22)
[2020-07-25] MEDS: DOCUSATE 100 MG CAP PO SCH (08:22)
[2020-07-25] MEDS: FAMOTIDINE 20 MG TAB PO SCH (08:22)
[2020-07-25] MEDS: MAGNESIUM OXIDE 400 MG TAB PO SCH (08:22)
[2020-07-25] MEDS: CHOLECALCIFEROL 400 UNIT TAB PO SCH (08:22)
[2020-07-25] MEDS: POTASSIUM CHLORIDE ER 10 MEQ TAB.ER.PRT PO SCH (08:22)
[2020-07-25] MEDS: VITAMIN E (DL,TOCOPHERYL ACET) 400 UNIT CAP PO SCH (08:23)
[2020-07-25] MEDS: DILTIAZEM ORAL 30 MG TAB PO SCH ×2 (08:23→21:30)
[2020-07-25] MEDS: INSULIN ASPART (NovoLOG) 100 UNIT/ML VIAL SQ SCH ×4 (08:23→21:30)
[2020-07-25] MEDS: NOREPINEPHRINE 4 MG in SODIUM CHLORIDE 0.9% 250 ML IV SCH ×2 (08:23→11:57)
--- NOTE | 2020-07-25 09:09 | P.PN ---
Subjective Progress Note Date: 07/25/20 Principal diagnosis: R hip closed, subtrochanteric fracture Pt s/e this AM. Nursing at bedside. Stated she sundown last night was pulling at lines. Pt is pleasently demented this AM, eating a Popsicle able to answer all questions. Minimal pain. Vitals are holding. Denies any f/s/sob/cp at this time. Objective - Vital Signs Vital signs: Vital Signs Temp 98.2 F 07/25/20 08:00 Pulse 115 H 07/25/20 08:00 Resp 18 07/25/20 08:00 BP 96/55 07/25/20 08:00 Pulse Ox 96 07/25/20 08:00 Intake & Output 07/24/20 07/25/20 07/25/20 18:59 06:59 18:59 Intake Total 1103.095 827.572 141.262 Output Total 1560 845 160 Balance -456.905 -17.428 -18.738 Intake: IV 380 286 78 Pressure bags (0.9 NaCl-) 66 18 Sodium Chloride 0.9% 1, 380 220 60 000 ml @ 20 mls/hr IV . Q24H [facility] Rx#:[id number] Intake, IV Titration 263.095 91.572 63.262 Amount DOBUTamine DRIP 500 mg In 83.518 Dextrose/Water 1 250ml. bag @ 2.5 MCG/KG/MIN 6. 559 mls/hr IV .Q24H [facility] Rx#:[id number] Dexmedetomidine/0.9% NaCl 12.372 (Pmx) 400 mcg In Empty Bag 1 bag @ Titrate IV . Q0M [facility] Rx#:[id number] Norepinephrine 4 mg In 53.747 91.572 63.262 Sodium Chloride 0.9% 250 ml @ 0.05 MCG/KG/MIN 17. 621 mls/hr IV .[id number] [facility] Rx#:[id number] propofoL 1,000 mg In 113.458 Empty Bag 1 bag @ Titrate IV .Q0M [facility] Rx#: [id number] Oral 150 450 Blood Product 310 Rc As-1 Unit 310 [id number] Output: Urine 1560 845 160 Other: Voiding Method Indwelling Catheter Indwelling Catheter Indwelling Catheter ABP, PAP, CO, CI - Last Documented Arterial Blood Pressure 103/41 - Exam Dressings CDI Swelling about the thigh Compartments soft and compressive Mild to moderate pain with palpation 2/4 dp/pt pulses 5/5/ df/pf/ehl/fhl b/l SILT L2-S1 - Neurologic Neurologic: Present: CNII-XII intact - Psychiatric Psychiatric: Present: appropriate affect - Labs CBC & Chem 7: 07/25/20 04:52 07/25/20 04:52 Labs: Abnormal Lab Results - Last 24 Hours (Table) 07/23/20 07/24/20 07/24/20 Range/Units 07:41 12:09 13:38 RBC (3.80-5.40) m/uL Hgb (11.4-16.0) gm/dL Hct (34.0-46.0) % Plt Count (150-450) k/uL ABG pO2 124 H (83-108) mmHg ABG O2 Saturation 99.5 H (94-97) % Sodium (137-145) mmol/L Chloride (98-107) mmol/L Carbon Dioxide (22-30) mmol/L BUN (7-17) mg/dL Creatinine (0.52-1.04) mg/dL Glucose (74-99) mg/dL POC Glucose (mg/dL) 114 H (75-99) mg/dL Calcium (8.4-10.2) mg/dL AST (14-36) U/L Troponin I (0.000-0.034) ng/mL Total Protein (6.3-8.2) g/dL Albumin (3.5-5.0) g/dL Crossmatch See Detail 07/24/20 07/24/20 07/24/20 Range/Units 17:24 17:50 20:07 RBC 2.73 L (3.80-5.40) m/uL Hgb 8.2 L (11.4-16.0) gm/dL Hct 26.1 L (34.0-46.0) % Plt Count 130 L (150-450) k/uL ABG pO2 (83-108) mmHg ABG O2 Saturation (94-97) % Sodium (137-145) mmol/L Chloride (98-107) mmol/L Carbon Dioxide (22-30) mmol/L BUN (7-17) mg/dL Creatinine (0.52-1.04) mg/dL Glucose (74-99) mg/dL POC Glucose (mg/dL) 120 H 124 H (75-99) mg/dL Calcium (8.4-10.2) mg/dL AST (14-36) U/L Troponin I (0.000-0.034) ng/mL Total Protein (6.3-8.2) g/dL Albumin (3.5-5.0) g/dL Crossmatch 07/24/20 07/25/20 07/25/20 Range/Units 21:22 00:20 04:52 RBC 2.63 L (3.80-5.40) m/uL Hgb 8.0 L (11.4-16.0) gm/dL Hct 25.1 L (34.0-46.0) % Plt Count 148 L (150-450) k/uL ABG pO2 (83-108) mmHg ABG O2 Saturation (94-97) % Sodium (137-145) mmol/L Chloride (98-107) mmol/L Carbon Dioxide (22-30) mmol/L BUN (7-17) mg/dL Creatinine (0.52-1.04) mg/dL Glucose (74-99) mg/dL POC Glucose (mg/dL) (75-99) mg/dL Calcium (8.4-10.2) mg/dL AST (14-36) U/L Troponin I 0.193 H* 0.237 H* (0.000-0.034) ng/mL Total Protein (6.3-8.2) g/dL Albumin (3.5-5.0) g/dL Crossmatch 07/25/20 07/25/20 07/25/20 Range/Units 04:52 04:52 06:45 RBC (3.80-5.40) m/uL Hgb (11.4-16.0) gm/dL Hct (34.0-46.0) % Plt Count (150-450) k/uL ABG pO2 (83-108) mmHg ABG O2 Saturation (94-97) % Sodium 134 L (137-145) mmol/L Chloride 109 H (98-107) mmol/L Carbon Dioxide 19 L (22-30) mmol/L BUN 39 H (7-17) mg/dL Creatinine 1.52 H (0.52-1.04) mg/dL Glucose 133 H (74-99) mg/dL POC Glucose (mg/dL) 147 H (75-99) mg/dL Calcium 7.8 L (8.4-10.2) mg/dL AST 44 H (14-36) U/L Troponin I 0.329 H* (0.000-0.034) ng/mL Total Protein 4.9 L (6.3-8.2) g/dL Albumin 2.5 L (3.5-5.0) g/dL Crossmatch Assessment and Plan Assessment: POD 2 Closed reduction with IMN of L subtrochanteric fracture, prolonged recovery with ARF, improved. 1. Acute closed right hip intertrochanteric fracture, reverse oblique, comminuted 2. Complex medical patient Plan: 1. Appreciate ICU and medical management 2. Trend labs Transfuse PRN to maintain pressures 3. OK to restart Eliquis when cardio and med deem appropriate 4. Pain control adequate at this time 5. GI ppx 6. TEDs, SCDs 7. Protected weight bearing to LLE with assistance 8. Will likely need rehab vs ECF 9. Will follow closely
[2020-07-25] MEDS: ENOXAPARIN 30 MG/0.3 ML SYRINGE SQ SCH (09:44)
--- NOTE | 2020-07-25 10:04 | P.PN ---
Subjective this is a pleasant 84-year-old female past medical history significant for paroxysmal atrial fibrillation on Eliquis, dyslipidemia, peripheral vascular disease with prior iliofemoral bypass December 2017, aortic stenosis status post TAVR December 2017, mild nonobstructive coronary artery disease and chronic kidney disease. She follows in the office with Dr. Seth. Echocardiogram reviewed, LV function preserved with ejection fraction 55-60%, no evidence of aortic regurgitation, history of TAVR, mild mitral regurgitation, moderate mitral stenosis with a mean gradient of 4 mmHg, moderate tricuspid regurgitation and moderate pulmonary hypertension with an RVSP of 62 mmHg. she is postoperative day #2 closed reduction with IM nailing. She was successfully extubated and is maintaining oxygen saturation on nasal cannula. The nurse is concerned about some confusion this morning the patient is alert and communicating appropriately at this time. Heart rates continue to be elevated around 122. EKG and telemetry tracings reviewed. She appears to be in multifocal atrial tachycardia at times with intermittent sinus mechanism. Blood pressure per the arterial line 127/44. Currently maintained on atorvastatin 10 mg daily, diltiazem 90 mg by mouth twice a day, Lasix 40 mg IV daily and Toprol 100 mg daily. Oral medications were resumed last night. Chest x-ray this morning reveals improving bilateral lung infiltrates. She had 2400 mL of urine output in the previous 24 hours and is maintaining a negative fluid balance. Laboratory data reviewed, WBC 8.5, hemoglobin 8, platelets 148, sodium 134, potassium 4.7, creatinine 1.52, troponin 0.193, 0.237 and 0.329. GENERAL: Maintained on mechanical ventilation. NECK: Supple without JVD or thyromegaly. LUNGS: Bibasilar rales, no wheezes or rhonchi. HEART: Regular rate and rhythm with systolic ejection murmur at the base, no rubs or gallops. S1 and S2 heard. EXTREMITIES: Normal range of motion, no edema. No clubbing or cyanosis. Peripheral pulses intact. ASSESSMENT Fall Right femur fracture status post surgical repair, postoperative day #2 Acute hypercapnic respiratory failure Acute diastolic heart failure Troponin elevation secondary to oxygen supply demand mismatch, type II myocardial infarction Paroxysmal atrial fibrillation on eliquis, currently maintaining sinus mechanism Valvular heart disease status post TAVR Peripheral vascular disease status post iliofemoral bypass Hypertension Dyslipidemia Diabetes mellitus Nonobstructive coronary artery disease, per catheterization December 2017 PLAN Recommend changing Lasix to oral. Continue Cardizem and Toprol for rate control. We will continue to follow and make recommendations accordingly. Nurse Practitioner note has been reviewed, I agree with a documented findings and plan of care. Patient was seen and examined. Objective - Vital Signs Vital signs: Vital Signs Temp 98.2 F 07/25/20 08:00 Pulse 122 H 07/25/20 09:00 Resp 10 L 07/25/20 09:00 BP 95/70 07/25/20 09:00 Pulse Ox 93 L 07/25/20 09:00 Intake & Output 07/24/20 07/25/20 07/25/20 18:59 06:59 18:59 Intake Total 1103.095 827.572 141.262 Output Total 1560 845 160 Balance -456.905 -17.428 -18.738 Intake: IV 380 286 78 Pressure bags (0.9 NaCl-) 66 18 Sodium Chloride 0.9% 1, 380 220 60 000 ml @ 20 mls/hr IV . Q24H [facility] Rx#:[id number] Intake, IV Titration 263.095 91.572 63.262 Amount DOBUTamine DRIP 500 mg In 83.518 Dextrose/Water 1 250ml. bag @ 2.5 MCG/KG/MIN 6. 559 mls/hr IV .Q24H [facility] Rx#:[id number] Dexmedetomidine/0.9% NaCl 12.372 (Pmx) 400 mcg In Empty Bag 1 bag @ Titrate IV . Q0M [facility] Rx#:[id number] Norepinephrine 4 mg In 53.747 91.572 63.262 Sodium Chloride 0.9% 250 ml @ 0.05 MCG/KG/MIN 17. 621 mls/hr IV .[id number] [facility] Rx#:[id number] propofoL 1,000 mg In 113.458 Empty Bag 1 bag @ Titrate IV .Q0M [facility] Rx#: [id number] Oral 150 450 Blood Product 310 Rc As-1 Unit 310 [id number] Output: Urine 1560 845 160 Other: Voiding Method Indwelling Catheter Indwelling Catheter Indwelling Catheter ABP, PAP, CO, CI - Last Documented Arterial Blood Pressure 127/44 - Labs CBC & Chem 7: 07/25/20 04:52 07/25/20 04:52 Labs: Abnormal Lab Results - Last 24 Hours (Table) 07/23/20 07/24/20 07/24/20 Range/Units 07:41 12:09 13:38 RBC (3.80-5.40) m/uL Hgb (11.4-16.0) gm/dL Hct (34.0-46.0) % Plt Count (150-450) k/uL ABG pO2 124 H (83-108) mmHg ABG O2 Saturation 99.5 H (94-97) % Sodium (137-145) mmol/L Chloride (98-107) mmol/L Carbon Dioxide (22-30) mmol/L BUN (7-17) mg/dL Creatinine (0.52-1.04) mg/dL Glucose (74-99) mg/dL POC Glucose (mg/dL) 114 H (75-99) mg/dL Calcium (8.4-10.2) mg/dL AST (14-36) U/L Troponin I (0.000-0.034) ng/mL Total Protein (6.3-8.2) g/dL Albumin (3.5-5.0) g/dL Crossmatch See Detail 07/24/20 07/24/20 07/24/20 Range/Units 17:24 17:50 20:07 RBC 2.73 L (3.80-5.40) m/uL Hgb 8.2 L (11.4-16.0) gm/dL Hct 26.1 L (34.0-46.0) % Plt Count 130 L (150-450) k/uL ABG pO2 (83-108) mmHg ABG O2 Saturation (94-97) % Sodium (137-145) mmol/L Chloride (98-107) mmol/L Carbon Dioxide (22-30) mmol/L BUN (7-17) mg/dL Creatinine (0.52-1.04) mg/dL Glucose (74-99) mg/dL POC Glucose (mg/dL) 120 H 124 H (75-99) mg/dL Calcium (8.4-10.2) mg/dL AST (14-36) U/L Troponin I (0.000-0.034) ng/mL Total Protein (6.3-8.2) g/dL Albumin (3.5-5.0) g/dL Crossmatch 07/24/20 07/25/20 07/25/20 Range/Units 21:22 00:20 04:52 RBC 2.63 L (3.80-5.40) m/uL Hgb 8.0 L (11.4-16.0) gm/dL Hct 25.1 L (34.0-46.0) % Plt Count 148 L (150-450) k/uL ABG pO2 (83-108) mmHg ABG O2 Saturation (94-97) % Sodium (137-145) mmol/L Chloride (98-107) mmol/L Carbon Dioxide (22-30) mmol/L BUN (7-17) mg/dL Creatinine (0.52-1.04) mg/dL Glucose (74-99) mg/dL POC Glucose (mg/dL) (75-99) mg/dL Calcium (8.4-10.2) mg/dL AST (14-36) U/L Troponin I 0.193 H* 0.237 H* (0.000-0.034) ng/mL Total Protein (6.3-8.2) g/dL Albumin (3.5-5.0) g/dL Crossmatch 07/25/20 07/25/20 07/25/20 Range/Units 04:52 04:52 06:45 RBC (3.80-5.40) m/uL Hgb (11.4-16.0) gm/dL Hct (34.0-46.0) % Plt Count (150-450) k/uL ABG pO2 (83-108) mmHg ABG O2 Saturation (94-97) % Sodium 134 L (137-145) mmol/L Chloride 109 H (98-107) mmol/L Carbon Dioxide 19 L (22-30) mmol/L BUN 39 H (7-17) mg/dL Creatinine 1.52 H (0.52-1.04) mg/dL Glucose 133 H (74-99) mg/dL POC Glucose (mg/dL) 147 H (75-99) mg/dL Calcium 7.8 L (8.4-10.2) mg/dL AST 44 H (14-36) U/L Troponin I 0.329 H* (0.000-0.034) ng/mL Total Protein 4.9 L (6.3-8.2) g/dL Albumin 2.5 L (3.5-5.0) g/dL Crossmatch
[2020-07-25 11:52] LABS: Glucose,Whole Blood 201 mg/dL (75-99)
--- NOTE | 2020-07-25 12:57 | P.PN ---
Subjective Progress Note Date: 07/25/20 Principal diagnosis: Postoperative hypercapnic respiratory failure, unexpected. Requiring reintubation post hip surgery. 84-year-old white female patient that came into the hospital on 07/21/2020 following a fall out of her chair landing on her right hip and sustaining a right hip fracture. X-ray of the right hip and AP pelvis showed acute intertrochanteric fracture of the right femur. Moderate osteoarthritis in the hip joints. Brain CT showed mild cerebral atrophy, with minimal chronic small vessel ischemia no acute intracranial abnormality. Chest x-ray on admission s howed pulmonary interstitial density consistent with pulmonary fibrosis, mild heart failure could not be excluded. Past medical history is significant for coronary artery disease, diabetes type II, hypertension, hyperlipidemia, osteoarthritis, history of Her on 01/03/2018, previous cardiac stent placements, patient is a former smoker. In preop. Patient was seen by cardiology and cleared for surgery. She has had no recent history of chest discomfort or shortness of breath. On 07/23/2020 patient underwent closed reduction and IMN of the right hip by Dr. Betts. Following surgery patient was extubated in the recovery, however she remains very obtunded, she was placed on BiPAP support, and we were urgently consulted for ICU placement. In view of her ongoing decreased level of consciousness, we recommended the reintubation and placement in the intensive care unit. Patient is seen in intensive care unit, she is on assist-control mode of ventilation with a rate of 16, tidal volume 450, FiO2 is 80% and PEEP of 5, blood gas was obtained showing pO2 of 78, pCO2 51, and pH of 7.18. Amp bicarb was given. Patient had a right IJ triple lumen catheter placed, and right radial art line placed. She was given a liter bolus. She is in sinus mechanism, she did have an episode of transient hypotension for which fluid bolus was given, however as she started to wake up she is actually becoming hypertensive and she will be placed on sedation. Chest x-ray was obtained showing interstitial prominence and possibility of mild heart failure. We'll give the patient a dose of Lasix as well. No fever. Patient was reevaluated today on 07/24/20, patient remains on mechanical ventilation, her ventilator settings are assist control rate of 2010 volume is 450 FiO2 50% PEEP of 5. ABG showed a pO2 of 159 pCO2 of 36 pH of 7.3. Hemoglobin is 7.0, and she is to receive 1 unit of packed RBCs today. Urine output remains marginal. Blood pressure is marginal. Patient was on Dobutrex o vernight, today I have recommended stopping the the V. tach, and I recommended norepinephrine. Patient was given Lasix last night, and this morning she received 40 mg IV push times one. Considering that ABG I cut down her FiO2 down to 40%, and I discontinued Dobutrex and kept her on norepinephrine for low blood pressure titrating to a mean of 60. Patient is also on propofol at 35 mcg/kg/m, however I plan to gradually transition the patient to Precedex, hoping to extubate the patient sometime today. Once the patient is awake and appropriate, she will be given a trial of pressure support of 8 and CPAP, and if tolerated will proceed to extubating the patient. Patient is to also be seen by cardiology for her multiple cardiac issues including severe aortic stenosis. And chronic atrial fibrillation presently she is in sinus rhythm Reevaluated today on 07/25/20, patient was extubated yesterday, and she tolerated the extubation quite well over the last 24 hours. Remains in the ICU. Blood pressure seems to be stable, off levo fed since 7 AM this morning. She is in atrial fibrillation with a rate of 112. She is on 3 L nasal cannula with O2 saturation of 96%. She had intermittent episodes of confusion last night. And she was placed on Lasix 40 mg twice a day, she had a -474 that fluid balance in the last 24 hours. Chest x-ray continues to show mild interstitial edema, creatinine is up to 1.5. And on physical examination has crackles at the bases, and mild bipedal edema. Considering her renal functioning is slightly worse, we'll keep the diuretics and will cut down the Lasix to once daily instead of twice a day. And the patient will be given Lovenox 30 mg subcu daily for DVT prophylaxis. Not to mention the patient is in atrial fibrillation, however cardiology is a bit reluctant to restart Eliquis at this point. Objective - Vital Signs Vital signs: Vital Signs Temp 98.2 F 07/25/20 12:00 Pulse 101 H 07/25/20 12:00 Resp 22 07/25/20 12:00 BP 117/64 07/25/20 11:30 Pulse Ox 95 07/25/20 12:00 Intake & Output 07/24/20 07/25/20 07/25/20 18:59 06:59 18:59 Intake Total 1103.095 827.572 219.262 Output Total 1560 845 580 Balance -456.905 -17.428 -360.738 Intake: IV 380 286 156 Pressure bags (0.9 NaCl-) 66 36 Sodium Chloride 0.9% 1, 380 220 120 000 ml @ 20 mls/hr IV . Q24H [facility] Rx#:[id number] Intake, IV Titration 263.095 91.572 63.262 Amount DOBUTamine DRIP 500 mg In 83.518 Dextrose/Water 1 250ml. bag @ 2.5 MCG/KG/MIN 6. 559 mls/hr IV .Q24H [facility] Rx#:[id number] Dexmedetomidine/0.9% NaCl 12.372 (Pmx) 400 mcg In Empty Bag 1 bag @ Titrate IV . Q0M [facility] Rx#:[id number] Norepinephrine 4 mg In 53.747 91.572 63.262 Sodium Chloride 0.9% 250 ml @ 0.05 MCG/KG/MIN 17. 621 mls/hr IV .[id number] [facility] Rx#:[id number] propofoL 1,000 mg In 113.458 Empty Bag 1 bag @ Titrate IV .Q0M [facility] Rx#: [id number] Oral 150 450 Blood Product 310 Rc As-1 Unit 310 [id number] Output: Urine 1560 845 580 Other: Voiding Method Indwelling Catheter Indwelling Catheter Indwelling Catheter ABP, PAP, CO, CI - Last Documented Arterial Blood Pressure 143/39 - Exam GENERAL EXAM: Sedated, intubated, 84-year-old elderly female on 3 liters nasal cannula, in no distress. HEENT: Head is atraumatic, normocephalic, PERRLA, EOMI, no icterus, no neck ma sses, CHEST: No chest wall deformity. Symmetrical expansion. LUNGS: Equal air entry very minimal fine crackles at the bases. CVS: Irregular irregular rhythm, normal S1 and S2, no gallops, 2/6 systolic murmur thought the precordium. ABDOMEN: Soft, nontender. No hepatosplenomegaly, normal bowel sounds, no guarding or rigidity. EXTREMITIES: No clubbing, 1+ bipedal edema, no cyanosis, 2+ pulses and upper and lower extremities. MUSCULOSKELETAL: No deformities noted SKIN: No rashes CENTRAL NERVOUS SYSTEM: Awake, follows instructions, intermittently confused. - Labs CBC & Chem 7: 07/25/20 04:52 07/25/20 04:52 Labs: Abnormal Lab Results - Last 24 Hours (Table) 07/23/20 07/24/20 07/24/20 Range/Units 07:41 13:38 17:24 RBC (3.80-5.40) m/uL Hgb (11.4-16.0) gm/dL Hct (34.0-46.0) % Plt Count (150-450) k/uL ABG pO2 124 H (83-108) mmHg ABG O2 Saturation 99.5 H (94-97) % Sodium (137-145) mmol/L Chloride (98-107) mmol/L Carbon Dioxide (22-30) mmol/L BUN (7-17) mg/dL Creatinine (0.52-1.04) mg/dL Glucose (74-99) mg/dL POC Glucose (mg/dL) 120 H (75-99) mg/dL Calcium (8.4-10.2) mg/dL AST (14-36) U/L Troponin I (0.000-0.034) ng/mL Total Protein (6.3-8.2) g/dL Albumin (3.5-5.0) g/dL Crossmatch See Detail 07/24/20 07/24/20 07/24/20 Range/Units 17:50 20:07 21:22 RBC 2.73 L (3.80-5.40) m/uL Hgb 8.2 L (11.4-16.0) gm/dL Hct 26.1 L (34.0-46.0) % Plt Count 130 L (150-450) k/uL ABG pO2 (83-108) mmHg ABG O2 Saturation (94-97) % Sodium (137-145) mmol/L Chloride (98-107) mmol/L Carbon Dioxide (22-30) mmol/L BUN (7-17) mg/dL Creatinine (0.52-1.04) mg/dL Glucose (74-99) mg/dL POC Glucose (mg/dL) 124 H (75-99) mg/dL Calcium (8.4-10.2) mg/dL AST (14-36) U/L Troponin I 0.193 H* (0.000-0.034) ng/mL Total Protein (6.3-8.2) g/dL Albumin (3.5-5.0) g/dL Crossmatch 07/25/20 07/25/20 07/25/20 Range/Units 00:20 04:52 04:52 RBC 2.63 L (3.80-5.40) m/uL Hgb 8.0 L (11.4-16.0) gm/dL Hct 25.1 L (34.0-46.0) % Plt Count 148 L (150-450) k/uL ABG pO2 (83-108) mmHg ABG O2 Saturation (94-97) % Sodium 134 L (137-145) mmol/L Chloride 109 H (98-107) mmol/L Carbon Dioxide 19 L (22-30) mmol/L BUN 39 H (7-17) mg/dL Creatinine 1.52 H (0.52-1.04) mg/dL Glucose 133 H (74-99) mg/dL POC Glucose (mg/dL) (75-99) mg/dL Calcium 7.8 L (8.4-10.2) mg/dL AST 44 H (14-36) U/L Troponin I 0.237 H* (0.000-0.034) ng/mL Total Protein 4.9 L (6.3-8.2) g/dL Albumin 2.5 L (3.5-5.0) g/dL Crossmatch 07/25/20 07/25/20 07/25/20 Range/Units 04:52 06:45 11:51 RBC (3.80-5.40) m/uL Hgb (11.4-16.0) gm/dL Hct (34.0-46.0) % Plt Count (150-450) k/uL ABG pO2 (83-108) mmHg ABG O2 Saturation (94-97) % Sodium (137-145) mmol/L Chloride (98-107) mmol/L Carbon Dioxide (22-30) mmol/L BUN (7-17) mg/dL Creatinine (0.52-1.04) mg/dL Glucose (74-99) mg/dL POC Glucose (mg/dL) 147 H 201 H (75-99) mg/dL Calcium (8.4-10.2) mg/dL AST (14-36) U/L Troponin I 0.329 H* (0.000-0.034) ng/mL Total Protein (6.3-8.2) g/dL Albumin (3.5-5.0) g/dL Crossmatch Assessment and Plan Assessment: Unexpected Postoperative hypercapnic respiratory failure related to acute exacerbation of systolic CHF, chest x-ray showing findings consistent with pulmonary edema, acute systolic congestive heart failure. and hypoventilation related to operative sedation. Patient was reintubated in the PACU and transferred to the ICU. Patient was extubated in the recovery room, but had to be reintubated for the above specific issues. Status post. Right hip subtrochanteric fracture, closed, displaced, comminuted, status post closed reduction and IM and of the right hip, postoperative day #2. Successful extubation on 07/24/20. 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 Titrate oxygen as accordingly. Keep SaO2 above 90%. Continue to monitor hemodynamically, presently off norepinephrine. Pain control. Incentive spirometry. Lovenox was started at 30 mg subcu daily. Continue gentle diuresis. We'll continue to follow and monitor the patient in the ICU for the next 24 hours. Time with Patient: Less than 30
[2020-07-25 17:35] LABS: Glucose,Whole Blood 165 mg/dL (75-99)
[2020-07-25] MEDS: SODIUM CHLORIDE 0.9% 1,000 ML IV SCH (17:38)
[2020-07-25] MEDS: FUROSEMIDE 40 MG TAB PO SCH (17:39)
--- NOTE | 2020-07-25 20:18 | P.PN ---
Subjective Principal diagnosis: Patient with change in status The patient is postop day #3 for hip fracture. Transferred due to post op changes. The patient is now off pressors and extubated. She is lucid but still now starting to be tachycardic. Objective - Vital Signs Vital signs: Vital Signs Temp 98.2 F 07/25/20 16:00 Pulse 104 H 07/25/20 19:00 Resp 23 07/25/20 19:00 BP 130/113 07/25/20 18:00 Pulse Ox 92 L 07/25/20 19:00 Intake & Output 07/25/20 07/25/20 07/26/20 06:59 18:59 06:59 Intake Total 827.572 375.262 26 Output Total 845 1030 120 Balance -17.428 -654.738 -94 Intake: IV 286 312 26 Pressure bags (0.9 NaCl-) 66 72 6 Sodium Chloride 0.9% 1, 220 240 20 000 ml @ 20 mls/hr IV . Q24H [facility] Rx#:[id number] Intake, IV Titration 91.572 63.262 Amount Norepinephrine 4 mg In 91.572 63.262 Sodium Chloride 0.9% 250 ml @ 0.05 MCG/KG/MIN 17. 621 mls/hr IV .[id number] [facility] Rx#:[id number] Oral 450 Output: Urine 845 1030 120 Other: Voiding Method Indwelling Catheter Indwelling Catheter ABP, PAP, CO, CI - Last Documented Arterial Blood Pressure 110/46 - Constitutional General appearance: Present: thin - EENT Eyes: Absent: abnormal pupil - Respiratory Respiratory: bilateral: CTA - Cardiovascular Heart rate: 110 Rhythm: regular Heart sounds: normal: S1, S2 Abnormal Heart Sounds: Absent: systolic murmur - Gastrointestinal General gastrointestinal: Present: soft. Absent: tenderness - Neurologic Neurologic: Present: CNII-XII intact - Psychiatric Psychiatric: Present: appropriate affect - Labs CBC & Chem 7: 07/25/20 04:52 07/25/20 04:52 Labs: Abnormal Lab Results - Last 24 Hours (Table) 07/24/20 07/25/20 07/25/20 Range/Units 21:22 00:20 04:52 RBC 2.63 L (3.80-5.40) m/uL Hgb 8.0 L (11.4-16.0) gm/dL Hct 25.1 L (34.0-46.0) % Plt Count 148 L (150-450) k/uL Sodium (137-145) mmol/L Chloride (98-107) mmol/L Carbon Dioxide (22-30) mmol/L BUN (7-17) mg/dL Creatinine (0.52-1.04) mg/dL Glucose (74-99) mg/dL POC Glucose (mg/dL) (75-99) mg/dL Calcium (8.4-10.2) mg/dL AST (14-36) U/L Troponin I 0.193 H* 0.237 H* (0.000-0.034) ng/mL Total Protein (6.3-8.2) g/dL Albumin (3.5-5.0) g/dL 07/25/20 07/25/20 07/25/20 Range/Units 04:52 04:52 06:45 RBC (3.80-5.40) m/uL Hgb (11.4-16.0) gm/dL Hct (34.0-46.0) % Plt Count (150-450) k/uL Sodium 134 L (137-145) mmol/L Chloride 109 H (98-107) mmol/L Carbon Dioxide 19 L (22-30) mmol/L BUN 39 H (7-17) mg/dL Creatinine 1.52 H (0.52-1.04) mg/dL Glucose 133 H (74-99) mg/dL POC Glucose (mg/dL) 147 H (75-99) mg/dL Calcium 7.8 L (8.4-10.2) mg/dL AST 44 H (14-36) U/L Troponin I 0.329 H* (0.000-0.034) ng/mL Total Protein 4.9 L (6.3-8.2) g/dL Albumin 2.5 L (3.5-5.0) g/dL 07/25/20 07/25/20 Range/Units 11:51 17:34 RBC (3.80-5.40) m/uL Hgb (11.4-16.0) gm/dL Hct (34.0-46.0) % Plt Count (150-450) k/uL Sodium (137-145) mmol/L Chloride (98-107) mmol/L Carbon Dioxide (22-30) mmol/L BUN (7-17) mg/dL Creatinine (0.52-1.04) mg/dL Glucose (74-99) mg/dL POC Glucose (mg/dL) 201 H 165 H (75-99) mg/dL Calcium (8.4-10.2) mg/dL AST (14-36) U/L Troponin I (0.000-0.034) ng/mL Total Protein (6.3-8.2) g/dL Albumin (3.5-5.0) g/dL Assessment and Plan (1) Hip fracture Current Visit: Yes Status: Acute Code(s): S72.009A - FRACTURE OF UNSP PART OF NECK OF UNSP FEMUR, INIT SNOMED Code(s): 320605425 (2) Atrial fibrillation with RVR Current Visit: No Status: Acute Code(s): I48.91 - UNSPECIFIED ATRIAL FIBRILLATION SNOMED Code(s): 568644413738081 (3) History of atrial fibrillation Current Visit: No Status: Chronic Code(s): Z86.79 - PERSONAL HISTORY OF OTHER DISEASES OF THE CIRCULATORY SYSTEM SNOMED Code(s): 291164770 (4) History of hyperlipidemia Current Visit: No Status: Chronic Code(s): Z86.39 - PERSONAL HISTORY OF ENDO, NUTRITIONAL AND METABOLIC DISEASE SNOMED Code(s): 614674802 (5) History of hypertension Current Visit: No Status: Chronic Code(s): Z86.79 - PERSONAL HISTORY OF OTHER DISEASES OF THE CIRCULATORY SYSTEM SNOMED Code(s): 923232583 Plan: Improvement from a respiratory perspective. 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 Check CBC and CMP in AM Dr. Hager's group will be covering for the weekend.
[2020-07-25 20:22] LABS: Glucose,Whole Blood 192 mg/dL (75-99)
[2020-07-25 21:28] LABS: Glucose,Whole Blood 233 mg/dL (75-99)
[2020-07-26] MEDS: NOREPINEPHRINE 4 MG in SODIUM CHLORIDE 0.9% 250 ML IV SCH (03:25)
[2020-07-26 06:20] LABS: Basophils % (A) 0 %; Eosinophils # (A) 0.2 k/uL (0-0.7); Eosinophils % (A) 3 %; HCT 23.4 % (34.0-46.0); HGB 7.4 gm/dL (11.4-16.0); Lymphocytes # (A) 1.2 k/uL (1.0-4.8); Lymphocytes % (A) 16 %; MCH 30.6 pg (25.0-35.0); MCHC 31.7 g/dL (31.0-37.0); MCV 96.7 fL (80.0-100.0); Mean Platelet Volume 8.2; Monocytes # (A) 0.4 k/uL (0-1.0); Monocytes % (A) 6 %; Neutrophils # (A) 5.7 k/uL (1.3-7.7); Neutrophils % (A) 74 %; Platelet Count 173 k/uL (150-450); RBC 2.42 m/uL (3.80-5.40); RDW 15.3 % (11.5-15.5); WBC 7.7 k/uL (3.8-10.6)
[2020-07-26 06:28] LABS: Calcium 7.8 mg/dL (8.4-10.2); Potassium 4.4 mmol/L (3.5-5.1)
--- NOTE | 2020-07-26 07:06 | XR ---
EXAMINATION TYPE: XR chest 1V portable DATE OF EXAM: 07/26/2020 COMPARISON: 07/25/2020 HISTORY: Shortness of breath FINDINGS: There are bilateral pleural effusions with cardiomegaly and bibasilar infiltrate. There is a diffuse interstitial pattern. Right-sided central line noted. Atherosclerotic change aorta. Postsurgical clovis nge involving the aortic valve. Hypertrophic and degenerative change of the spine. IMPRESSION: 1. Stable diffuse pleural-parenchymal changes most typical of CHF. Underlying interstitial pneumonia not excluded.
[2020-07-26 07:13] LABS: Glucose,Whole Blood 162 mg/dL (75-99)
[2020-07-26] MEDS: INSULIN ASPART (NovoLOG) 100 UNIT/ML VIAL SQ SCH ×4 (07:17→20:26)
[2020-07-26] MEDS ORDERED: FUROSEMIDE 10 MG/ML 4 ML VIAL IV SCH (09:00)
[2020-07-26] MEDS: METOPROLOL SUCCINATE (ER) 100 MG TAB.ER.24H PO SCH (09:10)
[2020-07-26] MEDS: ENOXAPARIN 30 MG/0.3 ML SYRINGE SQ SCH (09:10)
[2020-07-26] MEDS: POTASSIUM CHLORIDE ER 10 MEQ TAB.ER.PRT PO SCH (09:10)
[2020-07-26] MEDS: allopurinoL 100 MG TAB PO SCH (09:10)
[2020-07-26] MEDS: MAGNESIUM OXIDE 400 MG TAB PO SCH (09:10)
[2020-07-26] MEDS: ATORVASTATIN 10 MG TAB PO SCH (09:10)
[2020-07-26] MEDS: DOCUSATE 100 MG CAP PO SCH (09:10)
[2020-07-26] MEDS: CHOLECALCIFEROL 400 UNIT TAB PO SCH (09:10)
[2020-07-26] MEDS: DILTIAZEM ORAL 30 MG TAB PO SCH ×2 (09:11→20:25)
[2020-07-26] MEDS: FUROSEMIDE 40 MG TAB PO SCH ×2 (09:11→17:09)
[2020-07-26] MEDS: MULTIVITAMINS, THERA 1 EACH TAB PO SCH (09:11)
[2020-07-26] MEDS: VITAMIN E (DL,TOCOPHERYL ACET) 400 UNIT CAP PO SCH (09:11)
[2020-07-26] MEDS: FAMOTIDINE 20 MG TAB PO SCH (09:11)
[2020-07-26] MEDS: ASCORBIC ACID 500 MG TAB PO SCH (09:11)
--- NOTE | 2020-07-26 10:49 | P.PN ---
Subjective Progress Note Date: 07/26/20 Principal diagnosis: R hip closed, subtrochanteric fracture Pt s/e this AM. Nursing at bedside. Pt is pleasent this AM, eating breakfast able to answer all questions. Minimal pain. Vitals are holding. Denies any f/s/sob/cp at this time. Objective - Vital Signs Vital signs: Vital Signs Temp 97.7 F 07/26/20 08:00 Pulse 129 H 07/26/20 10:00 Resp 16 07/26/20 10:00 BP 102/68 07/26/20 07:00 Pulse Ox 92 L 07/26/20 10:00 Intake & Output 07/25/20 07/26/20 07/26/20 18:59 06:59 18:59 Intake Total 375.262 338 78 Output Total 1030 574 100 Balance -654.738 -236 -22 Weight 91.8 kg Intake: IV 312 338 78 Pressure bags (0.9 NaCl-) 72 78 18 Sodium Chloride 0.9% 1, 240 260 60 000 ml @ 20 mls/hr IV . Q24H OLIVIA Rx#:[id number] Intake, IV Titration 63.262 Amount Norepinephrine 4 mg In 63.262 Sodium Chloride 0.9% 250 ml @ 0.05 MCG/KG/MIN 17. 621 mls/hr IV .[id number] OLIVIA Rx#:[id number] Output: Urine 1030 574 100 Other: Voiding Method Indwelling Catheter Indwelling Catheter ABP, PAP, CO, CI - Last Documented Arterial Blood Pressure 139/55 - Exam Dressings CDI Swelling about the thigh and calf Compartments soft and compressive Mild to moderate pain with palpation 2/4 dp/pt pulses 5/5/ df/pf/ehl/fhl b/l SILT L2-S1 - Labs CBC & Chem 7: 07/26/20 05:37 07/26/20 05:37 Labs: Abnormal Lab Results - Last 24 Hours (Table) 07/25/20 07/25/20 07/25/20 Range/Units 11:51 17:34 20:20 RBC (3.80-5.40) m/uL Hgb (11.4-16.0) gm/dL Hct (34.0-46.0) % Sodium (137-145) mmol/L Carbon Dioxide (22-30) mmol/L BUN (7-17) mg/dL Creatinine (0.52-1.04) mg/dL Glucose (74-99) mg/dL POC Glucose (mg/dL) 201 H 165 H 192 H (75-99) mg/dL Calcium (8.4-10.2) mg/dL 07/25/20 07/26/20 07/26/20 Range/Units 21:27 05:37 05:37 RBC 2.42 L (3.80-5.40) m/uL Hgb 7.4 L (11.4-16.0) gm/dL Hct 23.4 L (34.0-46.0) % Sodium 134 L (137-145) mmol/L Carbon Dioxide 21 L (22-30) mmol/L BUN 47 H (7-17) mg/dL Creatinine 1.60 H (0.52-1.04) mg/dL Glucose 148 H (74-99) mg/dL POC Glucose (mg/dL) 233 H (75-99) mg/dL Calcium 7.8 L (8.4-10.2) mg/dL 07/26/20 Range/Units 07:11 RBC (3.80-5.40) m/uL Hgb (11.4-16.0) gm/dL Hct (34.0-46.0) % Sodium (137-145) mmol/L Carbon Dioxide (22-30) mmol/L BUN (7-17) mg/dL Creatinine (0.52-1.04) mg/dL Glucose (74-99) mg/dL POC Glucose (mg/dL) 162 H (75-99) mg/dL Calcium (8.4-10.2) mg/dL Assessment and Plan Assessment: POD 3 Closed reduction with IMN of L subtrochanteric fracture, prolonged recovery with ARF, improved. 1. Acute closed right hip intertrochanteric fracture, reverse oblique, comminuted 2. Complex medical patient Plan: 1. Appreciate ICU and medical management, notes reviewed. 2. Trend labs Transfuse PRN to maintain pressures 3. agree with Lovenox 4. Pain control adequate at this time 5. GI ppx 6. TEDs, SCDs 7. Protected weight bearing to LLE with assistance 8. Will likely need rehab vs ECF 9. Will follow closely
[2020-07-26 11:51] LABS: Glucose,Whole Blood 169 mg/dL (75-99)
[2020-07-26] MEDS: SODIUM CHLORIDE 0.9% 1,000 ML IV SCH (12:07)
--- NOTE | 2020-07-26 13:13 | P.PN ---
Subjective Progress Note Date: 07/26/20 Principal diagnosis: Postoperative hypercapnic respiratory failure, unexpected. Requiring reintubation post hip surgery. 84-year-old white female patient that came into the hospital on 07/21/2020 following a fall out of her chair landing on her right hip and sustaining a right hip fracture. X-ray of the right hip and AP pelvis showed acute intertrochanteric fracture of the right femur. Moderate osteoarthritis in the hip joints. Brain CT showed mild cerebral atrophy, with minimal chronic small vessel ischemia no acute intracranial abnormality. Chest x-ray on admission s howed pulmonary interstitial density consistent with pulmonary fibrosis, mild heart failure could not be excluded. Past medical history is significant for coronary artery disease, diabetes type II, hypertension, hyperlipidemia, osteoarthritis, history of Her on 01/03/2018, previous cardiac stent placements, patient is a former smoker. In preop. Patient was seen by cardiology and cleared for surgery. She has had no recent history of chest discomfort or shortness of breath. On 07/23/2020 patient underwent closed reduction and IMN of the right hip by Dr. Betts. Following surgery patient was extubated in the recovery, however she remains very obtunded, she was placed on BiPAP support, and we were urgently consulted for ICU placement. In view of her ongoing decreased level of consciousness, we recommended the reintubation and placement in the intensive care unit. Patient is seen in intensive care unit, she is on assist-control mode of ventilation with a rate of 16, tidal volume 450, FiO2 is 80% and PEEP of 5, blood gas was obtained showing pO2 of 78, pCO2 51, and pH of 7.18. Amp bicarb was given. Patient had a right IJ triple lumen catheter placed, and right radial art line placed. She was given a liter bolus. She is in sinus mechanism, she did have an episode of transient hypotension for which fluid bolus was given, however as she started to wake up she is actually becoming hypertensive and she will be placed on sedation. Chest x-ray was obtained showing interstitial prominence and possibility of mild heart failure. We'll give the patient a dose of Lasix as well. No fever. Patient was reevaluated today on 07/24/20, patient remains on mechanical ventilation, her ventilator settings are assist control rate of 2010 volume is 450 FiO2 50% PEEP of 5. ABG showed a pO2 of 159 pCO2 of 36 pH of 7.3. Hemoglobin is 7.0, and she is to receive 1 unit of packed RBCs today. Urine output remains marginal. Blood pressure is marginal. Patient was on Dobutrex o vernight, today I have recommended stopping the the V. tach, and I recommended norepinephrine. Patient was given Lasix last night, and this morning she received 40 mg IV push times one. Considering that ABG I cut down her FiO2 down to 40%, and I discontinued Dobutrex and kept her on norepinephrine for low blood pressure titrating to a mean of 60. Patient is also on propofol at 35 mcg/kg/m, however I plan to gradually transition the patient to Precedex, hoping to extubate the patient sometime today. Once the patient is awake and appropriate, she will be given a trial of pressure support of 8 and CPAP, and if tolerated will proceed to extubating the patient. Patient is to also be seen by cardiology for her multiple cardiac issues including severe aortic stenosis. And chronic atrial fibrillation presently she is in sinus rhythm Reevaluated today on 07/25/20, patient was extubated yesterday, and she tolerated the extubation quite well over the last 24 hours. Remains in the ICU. Blood pressure seems to be stable, off levo fed since 7 AM this morning. She is in atrial fibrillation with a rate of 112. She is on 3 L nasal cannula with O2 saturation of 96%. She had intermittent episodes of confusion last night. And she was placed on Lasix 40 mg twice a day, she had a -474 that fluid balance in the last 24 hours. Chest x-ray continues to show mild interstitial edema, creatinine is up to 1.5. And on physical examination has crackles at the bases, and mild bipedal edema. Considering her renal functioning is slightly worse, we'll keep the diuretics and will cut down the Lasix to once daily instead of twice a day. And the patient will be given Lovenox 30 mg subcu daily for DVT prophylaxis. Not to mention the patient is in atrial fibrillation, however cardiology is a bit reluctant to restart Eliquis at this point. Patient was reevaluated today on 07/26/20, tolerated extubation for the last 48 hours, however she remains in the ICU, presently on 2 L nasal cannula, relatively asymptomatic. She is in atrial fibrillation with controlled rate. She has been off norepinephrine for the last 24 hours. She did receive 2 units of packed RBCs for low hemoglobin, hemoglobin today is 7.4, and this is mostly secondary to surgical blood loss unless proven otherwise. Chest x-ray today continues to show mild interstitial edema, and suspect some underlying interstitial lung disease/pulmonary fibrosis. Again the patient is hemodynamically stable, and I plan to consider transferring the patient out of the ICU in the next 24 hours. Objective - Vital Signs Vital signs: Vital Signs Temp 98.4 F 07/26/20 12:00 Pulse 85 07/26/20 12:00 Resp 19 07/26/20 12:00 BP 133/72 07/26/20 12:00 Pulse Ox 94 L 07/26/20 12:00 Intake & Output 07/25/20 07/26/20 07/26/20 18:59 06:59 18:59 Intake Total 375.262 338 130 Output Total 1030 574 260 Balance -654.738 -236 -130 Weight 91.8 kg Intake: IV 312 338 130 Pressure bags (0.9 NaCl-) 72 78 30 Sodium Chloride 0.9% 1, 240 260 100 000 ml @ 20 mls/hr IV . Q24H [facility] Rx#:[id number] Intake, IV Titration 63.262 Amount Norepinephrine 4 mg In 63.262 Sodium Chloride 0.9% 250 ml @ 0.05 MCG/KG/MIN 17. 621 mls/hr IV .[id number] [facility] Rx#:[id number] Output: Urine 1030 574 260 Other: Voiding Method Indwelling Catheter Indwelling Catheter ABP, PAP, CO, CI - Last Documented Arterial Blood Pressure 139/55 - Exam GENERAL EXAM: Sedated, intubated, 84-year-old elderly female on 2 liters nasal cannula, in no distress. HEENT: Head is atraumatic, normocephalic, PERRLA, EOMI, no icterus, no neck masses, CHEST: No chest wall deformity. Symmetrical expansion. LUNGS: Equal air entry , continues to have minimal crackles at the bases. CVS: Irregular irregular rhythm, normal S1 and S2, no gallops, 2/6 systolic murmur thought the precordium. ABDOMEN: Soft, nontender. No hepatosplenomegaly, normal bowel sounds, no guard ing or rigidity. EXTREMITIES: No clubbing, 1+ bipedal edema, no cyanosis, 2+ pulses and upper and lower extremities. MUSCULOSKELETAL: No deformities noted SKIN: No rashes CENTRAL NERVOUS SYSTEM: Awake, follows instructions, intermittently confused. - Labs CBC & Chem 7: 07/26/20 05:37 07/26/20 05:37 Labs: Abnormal Lab Results - Last 24 Hours (Table) 07/25/20 07/25/20 07/25/20 Range/Units 17:34 20:20 21:27 RBC (3.80-5.40) m/uL Hgb (11.4-16.0) gm/dL Hct (34.0-46.0) % Sodium (137-145) mmol/L Carbon Dioxide (22-30) mmol/L BUN (7-17) mg/dL Creatinine (0.52-1.04) mg/dL Glucose (74-99) mg/dL POC Glucose (mg/dL) 165 H 192 H 233 H (75-99) mg/dL Calcium (8.4-10.2) mg/dL Crossmatch 07/26/20 07/26/20 07/26/20 Range/Units 05:37 05:37 07:11 RBC 2.42 L (3.80-5.40) m/uL Hgb 7.4 L (11.4-16.0) gm/dL Hct 23.4 L (34.0-46.0) % Sodium 134 L (137-145) mmol/L Carbon Dioxide 21 L (22-30) mmol/L BUN 47 H (7-17) mg/dL Creatinine 1.60 H (0.52-1.04) mg/dL Glucose 148 H (74-99) mg/dL POC Glucose (mg/dL) 162 H (75-99) mg/dL Calcium 7.8 L (8.4-10.2) mg/dL Crossmatch 07/26/20 07/26/20 Range/Units 11:33 11:50 RBC (3.80-5.40) m/uL Hgb (11.4-16.0) gm/dL Hct (34.0-46.0) % Sodium (137-145) mmol/L Carbon Dioxide (22-30) mmol/L BUN (7-17) mg/dL Creatinine (0.52-1.04) mg/dL Glucose (74-99) mg/dL POC Glucose (mg/dL) 169 H (75-99) mg/dL Calcium (8.4-10.2) mg/dL Crossmatch See Detail Assessment and Plan Assessment: Unexpected Postoperative hypercapnic respiratory failure related to acute exacerbation of systolic CHF, chest x-ray showing findings consistent with pulmonary edema, acute systolic congestive heart failure. and hypoventilation related to operative sedation. Patient was reintubated in the PACU and transferred to the ICU. Patient was extubated in the recovery room, but had to be reintubated for the above specific issues. Status post. Right hip subtrochanteric fracture, closed, displaced, comminuted, status post closed reduction and IM and of the right hip, postoperative day #3 Successful extubation on 07/24/20. 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 Recommendation: Continue to monitor the patient in the ICU. Continue oxygen at 2 L/m. Patient is now off norepinephrine for the last 24 hours. Continue Pain control. Continue Incentive spirometry. Continue Lovenox was started at 30 mg subcu daily. Continue gentle diuresis. We'll try to establish a peripheral IV access, discontinue central access, and patient will eventually require transfer to ECF or rehab facility. Time with Patient: Less than 30
--- NOTE | 2020-07-26 15:15 | P.PN ---
Subjective Progress Note Date: 07/26/20 This 84-year-old female is status post hip surgery Patient was extubated yesterday. Patient seemed to be doing well. Denies any chest pain or shortness of breath. Patient is in atrial fibrillation with controlled and corresponds. She is off Levophed. Patient received blood transfusion for low hemoglob inrelated to surgical loss. Chest x-ray showed mild interstitial edema. Patient is being constricted for transfer to select care unit. Overall patient seemed to be clinically stable Objective - Vital Signs Vital signs: Vital Signs Temp 98.0 F 07/26/20 13:30 Pulse 72 07/26/20 13:30 Resp 16 07/26/20 13:30 BP 120/66 07/26/20 13:30 Pulse Ox 92 L 07/26/20 13:30 Intake & Output 07/25/20 07/26/20 07/26/20 18:59 06:59 18:59 Intake Total 375.262 338 130 Output Total 1030 574 260 Balance -654.738 -236 -130 Weight 91.8 kg Intake: IV 312 338 130 Pressure bags (0.9 NaCl-) 72 78 30 Sodium Chloride 0.9% 1, 240 260 100 000 ml @ 20 mls/hr IV . Q24H [facility] Rx#:[id number] Intake, IV Titration 63.262 Amount Norepinephrine 4 mg In 63.262 Sodium Chloride 0.9% 250 ml @ 0.05 MCG/KG/MIN 17. 621 mls/hr IV .[id number] [facility] Rx#:[id number] Blood Product 0 Rc As-1 Unit 0 [id number] Output: Urine 1030 574 260 Other: Voiding Method Indwelling Catheter Indwelling Catheter Indwelling Catheter ABP, PAP, CO, CI - Last Documented Arterial Blood Pressure 139/55 - Exam GENERAL EXAM: Patient is alert and oriented and doesn't appear to be in any acute distress HEENT: Normocephalic. Normal reaction of pupils, equal size, normal range of extraocular motion. No erythema or exudates in the throat. NECK: No masses, no nuchal rigidity. CHEST: No chest wall deformity. LUNGS: [Equal air entry with no crackles or wheeze.] HEART: [S1 and S2 normal with no audible mumurs or gallops. Irregular rhythm ABDOMEN: No hepatosplenomegaly, normal bowel sounds, no guarding or rigidity. SKIN: No rashes CENTRAL NERVOUS SYSTEM: No focal deficits. EXTREMITIES: [No cyanosis, clubbing or edema. - Labs CBC & Chem 7: 07/26/20 05:37 07/26/20 05:37 Labs: Abnormal Lab Results - Last 24 Hours (Table) 07/23/20 07/25/20 07/25/20 Range/Units 07:41 17:34 20:20 RBC (3.80-5.40) m/uL Hgb (11.4-16.0) gm/dL Hct (34.0-46.0) % Sodium (137-145) mmol/L Carbon Dioxide (22-30) mmol/L BUN (7-17) mg/dL Creatinine (0.52-1.04) mg/dL Glucose (74-99) mg/dL POC Glucose (mg/dL) 165 H 192 H (75-99) mg/dL Calcium (8.4-10.2) mg/dL Crossmatch See Detail 07/25/20 07/26/20 07/26/20 Range/Units 21:27 05:37 05:37 RBC 2.42 L (3.80-5.40) m/uL Hgb 7.4 L (11.4-16.0) gm/dL Hct 23.4 L (34.0-46.0) % Sodium 134 L (137-145) mmol/L Carbon Dioxide 21 L (22-30) mmol/L BUN 47 H (7-17) mg/dL Creatinine 1.60 H (0.52-1.04) mg/dL Glucose 148 H (74-99) mg/dL POC Glucose (mg/dL) 233 H (75-99) mg/dL Calcium 7.8 L (8.4-10.2) mg/dL Crossmatch 07/26/20 07/26/20 07/26/20 Range/Units 07:11 11:33 11:50 RBC (3.80-5.40) m/uL Hgb (11.4-16.0) gm/dL Hct (34.0-46.0) % Sodium (137-145) mmol/L Carbon Dioxide (22-30) mmol/L BUN (7-17) mg/dL Creatinine (0.52-1.04) mg/dL Glucose (74-99) mg/dL POC Glucose (mg/dL) 162 H 169 H (75-99) mg/dL Calcium (8.4-10.2) mg/dL Crossmatch See Detail Assessment and Plan (1) Hip fracture Current Visit: Yes Status: Acute Code(s): S72.009A - FRACTURE OF UNSP PART OF NECK OF UNSP FEMUR, INIT SNOMED Code(s): 505345860 (2) Anemia Current Visit: No Status: Acute Code(s): D64.9 - ANEMIA, UNSPECIFIED SNOMED Code(s): 272767511 (3) Atrial fibrillation with RVR Current Visit: No Status: Acute Code(s): I48.91 - UNSPECIFIED ATRIAL FIBRILLATION SNOMED Code(s): 679970794980009 (4) S/P TAVR (transcatheter aortic valve replacement) Current Visit: No Status: Acute Code(s): Z95.2 - PRESENCE OF PROSTHETIC HEART VALVE SNOMED Code(s): 4932892042977 Plan: Continue metoprolol and diltiazem along with diuretics. Increase activity. Transferred to telemetry unit
[2020-07-26 16:47] LABS: Glucose,Whole Blood 165 mg/dL (75-99)
[2020-07-26 18:15] LABS: Basophils % (A) 0 %; Eosinophils # (A) 0.2 k/uL (0-0.7); Eosinophils % (A) 3 %; HCT 28.9 % (34.0-46.0); Lymphocytes % (A) 13 %; MCH 30.1 pg (25.0-35.0); MCHC 31.1 g/dL (31.0-37.0); MCV 96.7 fL (80.0-100.0); Mean Platelet Volume 8.5; Monocytes # (A) 0.4 k/uL (0-1.0); Monocytes % (A) 5 %; Neutrophils # (A) 6.2 k/uL (1.3-7.7); Neutrophils % (A) 78 %; Platelet Count 171 k/uL (150-450); RBC 2.98 m/uL (3.80-5.40); WBC 7.9 k/uL (3.8-10.6)
[2020-07-26 19:02] LABS: Appearance,Urine Clear (Clear); Bilirubin,Urine Negative (Negative); Blood,Urine Negative (Negative); Calcium Oxalate Crystals,Urine Rare /hpf; Color,Urine Yellow; Glucose,Urine (UA) Negative (Negative); Hyaline Casts,Urine 8 /lpf (0-2); Ketones,Urine Negative (Negative); Leukocyte Esterase,Urine Large (Negative); Mucus,Urine Rare /hpf; Nitrite,Urine Positive (Negative); Protein,Urine Negative (Negative); RBC,Urine 3 /hpf (0-5); Specific Gravity,Urine 1.011 (1.001-1.035); Squamous Epithelial Cell,Urine 1 /hpf (0-4); Urobilinogen,Urine <2.0 mg/dL (<2.0); WBC,Urine 20 /hpf (0-5)
[2020-07-26 20:22] LABS: Glucose,Whole Blood 221 mg/dL (75-99)
[2020-07-26] MEDS: LEVOFLOXACIN 250MG-D5W PMX 250 MG in DEXTROSE/WATER 1 50ML.BAG IVPB SCH (21:05)
[2020-07-26] MEDS: ACETAMINOPHEN TAB 325 MG TAB PO PRN (22:25)
--- NOTE | 2020-07-26 22:34 | P.PN ---
Subjective On-call hospitalist covering for Dr. Bose over the weekend. Dr. Bose will resume the care of the patient on 07/28 This is a pleasant 84 years old female who was admitted with a fall and right hip fracture, she underwent surgical reduction of her hip fracture, post operatively she had to be intubated and [facility], eventually patient got extubated however her hospital course was complicated with A. fib and RVR, cardiology consult obtained and patient started on Cardizem, currently oral and rate is controlled currently. She is currently off levophed for more than 24 hours She remains little bit confused, although she is lying comfortable in bed. Also patient had anemia and received 2 units of blood transfusion. Another unit of blood transfusion is given yesterday Urine analysis today is suspicious for infection and she was started on Levaquin. Patient currently remain in the ICU for 24 hours and possible transfer to select unit in the next 24 hours Review of systems CONSTITUTIONAL: No fever, no malaise, no fatigue. HEENT: No recent visual problems or hearing problems. Denied any sore throat. CARDIOVASCULAR: No orthopnea, PND, no palpitations, no syncope. PULMONARY: No shortness of breath, no cough, no hemoptysis. GASTROINTESTINAL: No diarrhea, no nausea, no vomiting, no abdominal pain. Normoactive bowel sounds. NEUROLOGICAL: No headaches, no weakness, no numbness. HEMATOLOGICAL: Denies any bleeding or petechiae. Active Medications Generic Name Dose Route Start Last Admin Trade Name Freq PRN Reason Stop Dose Admin Acetaminophen 650 mg 07/21/20 21:56 07/26/20 22:25 Acetaminophen Tab 325 Mg Tab PO 650 mg Q6HR PRN Administration Mild Pain or Fever > 100.5 Allopurinol 150 mg 07/22/20 09:00 07/26/20 09:10 Allopurinol 100 Mg Tab PO 150 mg DAILY OLIVIA Administration Ascorbic Acid 500 mg 07/22/20 09:00 07/26/20 09:11 Ascorbic Acid 500 Mg Tab PO 500 mg DAILY OLIVIA Administration Atorvastatin Calcium 10 mg 07/22/20 09:00 07/26/20 09:10 Atorvastatin 10 Mg Tab PO 10 mg DAILY OLIVIA Administration Cholecalciferol 800 unit 07/22/20 09:00 07/26/20 09:10 Cholecalciferol 400 Unit Tab PO 800 unit DAILY OLIVIA Administration Diltiazem HCl 90 mg 10/15/20 19:00 07/26/20 20:25 Diltiazem Oral 30 Mg Tab PO 90 mg BID OLIVIA Administration Docusate Sodium 200 mg 07/22/20 09:00 07/26/20 09:10 Docusate 100 Mg Cap PO 200 mg DAILY OLIVIA Administration Enoxaparin Sodium 30 mg 07/25/20 09:15 07/26/20 09:10 Enoxaparin 30 Mg/0.3 Ml Syringe SQ 30 mg DAILY OLIVIA Administration Famotidine 20 mg 07/22/20 09:00 07/26/20 09:11 Famotidine 20 Mg Tab PO 20 mg DAILY OLIVIA Administration Furosemide 40 mg 07/25/20 16:00 07/26/20 17:09 Furosemide 40 Mg Tab PO 40 mg BID@0900,1600 OLIVIA Administration Sodium Chloride 1,000 mls @ 20 mls/hr 07/21/20 22:00 07/26/20 12:07 Saline 0.9% IV 20 mls/hr .Q24H OLIVIA Administration Levofloxacin/Dextrose 250 mg/ 50 mls @ 50 mls/hr 07/26/20 21:00 07/26/20 21:05 IV Solution IVPB 50 mls/hr Q24H OLIVIA Administration Insulin Aspart 0 unit 07/24/20 21:00 07/26/20 20:26 Insulin Aspart (Novolog) 100 Unit/Ml Vial SQ 4 unit ACHS OLIVIA Administration Protocol Lidocaine HCl 0.1 ml 07/23/20 18:13 Lidocaine 1% (10mg/Ml) For Iv Start INTRADERMA PER PROTOCOL PRN IV Start Magnesium Oxide 400 mg 07/22/20 09:00 07/26/20 09:10 Magnesium Oxide 400 Mg Tab PO 400 mg DAILY OLIVIA Administration Metoprolol Succinate 100 mg 07/24/20 18:45 07/26/20 09:10 Metoprolol Succinate (Er) 100 Mg Tab.Er.24h PO 100 mg DAILY OLIVIA Administration Multivitamins 1 each 07/22/20 09:00 07/26/20 09:11 Multivitamins, Thera 1 Each Tab PO 1 each DAILY OLIVIA Administration Naloxone HCl 0.2 mg 07/21/20 21:56 Naloxone 0.4 Mg/Ml 1 Ml Vial IV Q2M PRN Opioid Reversal Ondansetron HCl 4 mg 07/21/20 21:56 Ondansetron 4 Mg/2 Ml Vial IVP Q8HR PRN Nausea And Vomiting Potassium Chloride 10 meq 07/22/20 09:00 07/26/20 09:10 Potassium Chloride Er 10 Meq Tab.Er.Prt PO 10 meq DAILY OLIVIA Administration Vitamin E 400 unit 07/22/20 09:00 07/26/20 09:11 Vitamin E (Dl,Tocopheryl Acet) 400 Unit Cap PO 400 unit DAILY OLIVIA Administration Objective - Vital Signs Vital signs: Vital Signs Temp 97.7 F 07/26/20 16:00 Pulse 100 07/26/20 16:00 Resp 17 07/26/20 16:00 BP 138/75 07/26/20 16:00 Pulse Ox 94 L 07/26/20 16:00 Intake & Output 07/25/20 07/26/20 07/26/20 18:59 06:59 18:59 Intake Total 375.262 338 130 Output Total 1030 574 260 Balance -654.738 -236 -130 Weight 91.8 kg Intake: IV 312 338 130 Pressure bags (0.9 NaCl-) 72 78 30 Sodium Chloride 0.9% 1, 240 260 100 000 ml @ 20 mls/hr IV . Q24H OLIVIA Rx#:[id number] Intake, IV Titration 63.262 Amount Norepinephrine 4 mg In 63.262 Sodium Chloride 0.9% 250 ml @ 0.05 MCG/KG/MIN 17. 621 mls/hr IV .[id number] OLIVIA Rx#:[id number] Blood Product 0 Rc As-1 Unit 0 [id number] Output: Urine 1030 574 260 Other: Voiding Method Indwelling Catheter Indwelling Catheter Indwelling Catheter ABP, PAP, CO, CI - Last Documented Arterial Blood Pressure 139/55 - Exam -GENERAL: The patient is alert and oriented x1-2, not in any acute distress. Obese HEENT: Pupils are round and equally reacting to light. EOMI. No scleral icterus. No conjunctival pallor. Normocephalic, atraumatic. No pharyngeal erythema. No thyromegaly. CARDIOVASCULAR: S1 and S2 present. No murmurs, rubs, or gallops. PULMONARY: Chest is clear to auscultation, no wheezing or crackles. ABDOMEN: Soft, nontender, nondistended, normoactive bowel sounds. No palpable organomegaly. MUSCULOSKELETAL: No joint swelling or deformity. EXTREMITIES: No cyanosis, clubbing, or pedal edema. NEUROLOGICAL: Gross neurological examination did not reveal any focal deficits. SKIN: No rashes. no petechiae. - Labs CBC & Chem 7: 07/26/20 17:49 07/26/20 05:37 Labs: Abnormal Lab Results - Last 24 Hours (Table) 07/23/20 07/25/20 07/25/20 Range/Units 07:41 17:34 20:20 RBC (3.80-5.40) m/uL Hgb (11.4-16.0) gm/dL Hct (34.0-46.0) % Sodium (137-145) mmol/L Carbon Dioxide (22-30) mmol/L BUN (7-17) mg/dL Creatinine (0.52-1.04) mg/dL Glucose (74-99) mg/dL POC Glucose (mg/dL) 165 H 192 H (75-99) mg/dL Calcium (8.4-10.2) mg/dL Crossmatch See Detail 07/25/20 07/26/20 07/26/20 Range/Units 21:27 05:37 05:37 RBC 2.42 L (3.80-5.40) m/uL Hgb 7.4 L (11.4-16.0) gm/dL Hct 23.4 L (34.0-46.0) % Sodium 134 L (137-145) mmol/L Carbon Dioxide 21 L (22-30) mmol/L BUN 47 H (7-17) mg/dL Creatinine 1.60 H (0.52-1.04) mg/dL Glucose 148 H (74-99) mg/dL POC Glucose (mg/dL) 233 H (75-99) mg/dL Calcium 7.8 L (8.4-10.2) mg/dL Crossmatch 07/26/20 07/26/20 07/26/20 Range/Units 07:11 11:33 11:50 RBC (3.80-5.40) m/uL Hgb (11.4-16.0) gm/dL Hct (34.0-46.0) % Sodium (137-145) mmol/L Carbon Dioxide (22-30) mmol/L BUN (7-17) mg/dL Creatinine (0.52-1.04) mg/dL Glucose (74-99) mg/dL POC Glucose (mg/dL) 162 H 169 H (75-99) mg/dL Calcium (8.4-10.2) mg/dL Crossmatch See Detail Assessment and Plan Assessment: Acute urinary tract infection Metabolic encephalopathy secondary to above Status post fall and right hip fracture status post surgical reproduction A. fib with RVR, currently rate controlled severe aortic stenosis Hypertension Hyperlipidemia Osteoarthritis 2 diabetes mellitus History of coronary artery disease, status post stent placement Plan: This is a pleasant 84 years old female who presents with fall, hip fracture status post for surgical reduction, A. fib and RVR, respiratory failure and UTI. Continue with oral Lasix,: Start patient on Levaquin and follow-up urine culture. Continue with Cardizem. Cardiology are reluctant to start the patient on anticoagulation currently. Patient is followed closely by pulmonary/critical care team, publisher assistant and orthopedic surgeon Labs and medication were reviewed.. Continue same treatment. Continue with symptomatic treatment. Resume home medication. Monitor lytes and vitals. DVT and GI prophylaxis. Further recommendationsas per clinical course of the patient DVT prophylaxis: Subcutaneous Lovenox GI Prophylaxis: Pepcid PT/OT: Recommended subacute rehab, we are going to consult psychiatric social worker Prognosis is guarded
[2020-07-27 04:37] LABS: HCT 27.1 % (34.0-46.0); HGB 8.8 gm/dL (11.4-16.0); MCH 31.1 pg (25.0-35.0); MCHC 32.3 g/dL (31.0-37.0); MCV 96.3 fL (80.0-100.0); Mean Platelet Volume 8.1; Platelet Count 171 k/uL (150-450); RBC 2.82 m/uL (3.80-5.40); RDW 14.6 % (11.5-15.5); WBC 7.3 k/uL (3.8-10.6)
[2020-07-27 04:44] LABS: Calcium 7.8 mg/dL (8.4-10.2); Potassium 4.3 mmol/L (3.5-5.1)
[2020-07-27] MEDS: ACETAMINOPHEN TAB 325 MG TAB PO PRN ×2 (06:27→19:50)
[2020-07-27] MEDS: DILTIAZEM ORAL 30 MG TAB PO SCH ×2 (06:28→19:50)
[2020-07-27 07:20] LABS: Glucose,Whole Blood 167 mg/dL (75-99)
--- NOTE | 2020-07-27 07:27 | XR ---
EXAMINATION TYPE: XR chest 1V portable DATE OF EXAM: 07/27/2020 Comparison: 07/26/2020 Clinical History: 84-year-old female Tube placement Findings: Right IJ CVC tip in the lower right atrium. Endovascular aortic valve replacement. Heart mildly enlar ged. Diffuse interstitial opacity shows slight improvement from prior. Basilar opacities are also imp roving though blunted costophrenic angles remain. Impression: 1. Right IJ CVC tip remains in the low right atrium. 2. Improving CHF now with pulmonary vascular congestion remaining. 3. Trace effusions with adjacent atelectasis and/or consolidation remain, also improving.
[2020-07-27] MEDS: INSULIN ASPART (NovoLOG) 100 UNIT/ML VIAL SQ SCH ×4 (07:28→20:40)
--- NOTE | 2020-07-27 08:20 | P.PN ---
Subjective Progress Note Date: 07/27/20 Principal diagnosis: status post IM nail right subtrochanteric femur fracture patient was examined at bedside in the ICU. She typically is overflow due to no beds being available in the stepdown unit. She is being followed by internal medicine, cardiology, pulmonology and orthopedics. Her hemoglobin has stabilized since latest blood transfusion. They're attempting to get patient out of bed today. She currently denies any headaches, lightheadedness, chest pain, shortness of breath, nausea vomiting, fever or chills. Objective - Vital Signs Vital signs: Vital Signs Temp 98.4 F 07/27/20 04:00 Pulse 120 H 07/27/20 05:00 Resp 21 07/27/20 05:00 BP 107/90 07/27/20 05:00 Pulse Ox 93 L 07/27/20 05:00 Intake & Output 07/26/20 07/27/20 07/27/20 18:59 06:59 18:59 Intake Total 520 640 Output Total 610 970 Balance -90 -330 Intake: IV 210 290 Levofloxacin 250Mg-D5w 50 Pmx 250 mg In Dextrose/ Water 1 50ml.bag @ 50 mls /hr IVPB Q24H OLIVIA Rx#: [id number] Pressure bags (0.9 NaCl-) 30 Sodium Chloride 0.9% 1, 180 240 000 ml @ 20 mls/hr IV . Q24H OLIVIA Rx#:[id number] Oral 350 Blood Product 310 Rc As-1 Unit 310 [id number] Output: Urine 610 970 Other: Voiding Method Indwelling Catheter Indwelling Catheter ABP, PAP, CO, CI - Last Documented Arterial Blood Pressure 139/55 - Exam right lower extremity: Postop bandages are in good position and condition, no obvious drainage. Soft tissue swelling present throughout the lower extremity, compartments are soft and compressible. Calf is soft with palpation. Patient is able to wiggle the toes. Dorsalis pedis pulses 2+. - Labs CBC & Chem 7: 07/27/20 04:21 07/27/20 04:21 Labs: Abnormal Lab Results - Last 24 Hours (Table) 07/23/20 07/26/20 07/26/20 Range/Units 07:41 11:33 11:50 RBC (3.80-5.40) m/uL Hgb (11.4-16.0) gm/dL Hct (34.0-46.0) % Sodium (137-145) mmol/L Carbon Dioxide (22-30) mmol/L BUN (7-17) mg/dL Creatinine (0.52-1.04) mg/dL Glucose (74-99) mg/dL POC Glucose (mg/dL) 169 H (75-99) mg/dL Calcium (8.4-10.2) mg/dL Urine Nitrite (Negative) Ur Leukocyte Esterase (Negative) Urine WBC (0-5) /hpf Calcium Oxalate Crystal (None) /hpf Hyaline Casts (0-2) /lpf Urine Mucus (None) /hpf Crossmatch See Detail See Detail 07/26/20 07/26/20 07/26/20 Range/Units 16:46 17:49 18:46 RBC 2.98 L (3.80-5.40) m/uL Hgb 9.0 L D (11.4-16.0) gm/dL Hct 28.9 L (34.0-46.0) % Sodium (137-145) mmol/L Carbon Dioxide (22-30) mmol/L BUN (7-17) mg/dL Creatinine (0.52-1.04) mg/dL Glucose (74-99) mg/dL POC Glucose (mg/dL) 165 H (75-99) mg/dL Calcium (8.4-10.2) mg/dL Urine Nitrite Positive H (Negative) Ur Leukocyte Esterase Large H (Negative) Urine WBC 20 H (0-5) /hpf Calcium Oxalate Crystal Rare H (None) /hpf Hyaline Casts 8 H (0-2) /lpf Urine Mucus Rare H (None) /hpf Crossmatch 07/26/20 07/27/20 07/27/20 Range/Units 20:21 04:21 04:21 RBC 2.82 L (3.80-5.40) m/uL Hgb 8.8 L (11.4-16.0) gm/dL Hct 27.1 L (34.0-46.0) % Sodium 135 L (137-145) mmol/L Carbon Dioxide 21 L (22-30) mmol/L BUN 48 H (7-17) mg/dL Creatinine 1.50 H (0.52-1.04) mg/dL Glucose 153 H (74-99) mg/dL POC Glucose (mg/dL) 221 H (75-99) mg/dL Calcium 7.8 L (8.4-10.2) mg/dL Urine Nitrite (Negative) Ur Leukocyte Esterase (Negative) Urine WBC (0-5) /hpf Calcium Oxalate Crystal (None) /hpf Hyaline Casts (0-2) /lpf Urine Mucus (None) /hpf Crossmatch 07/27/20 Range/Units 07:19 RBC (3.80-5.40) m/uL Hgb (11.4-16.0) gm/dL Hct (34.0-46.0) % Sodium (137-145) mmol/L Carbon Dioxide (22-30) mmol/L BUN (7-17) mg/dL Creatinine (0.52-1.04) mg/dL Glucose (74-99) mg/dL POC Glucose (mg/dL) 167 H (75-99) mg/dL Calcium (8.4-10.2) mg/dL Urine Nitrite (Negative) Ur Leukocyte Esterase (Negative) Urine WBC (0-5) /hpf Calcium Oxalate Crystal (None) /hpf Hyaline Casts (0-2) /lpf Urine Mucus (None) /hpf Crossmatch Microbiology - Last 24 Hours (Table) 07/26/20 18:46 Urine Culture - Preliminary Urine,Catheterized Assessment and Plan Assessment: status post IM nail right subtrochanteric fracture Plan: Pain control, continue with current medication DVT prophylaxis, appreciate medical recommendations Daily dressing changes Continue to work with physical therapy weightbearing status: Toe-touch with walker An orthopedic standpoint, patient is stable for discharge to rehab. Primary admission will be switched to internal medicine. We'll be available on consult, please don't hesitate to contact us with any questions. Time with Patient: Less than 30
[2020-07-27] MEDS: allopurinoL 100 MG TAB PO SCH (10:35)
[2020-07-27] MEDS: ENOXAPARIN 30 MG/0.3 ML SYRINGE SQ SCH (10:35)
[2020-07-27] MEDS: MULTIVITAMINS, THERA 1 EACH TAB PO SCH (10:36)
[2020-07-27] MEDS: DOCUSATE 100 MG CAP PO SCH (10:36)
[2020-07-27] MEDS: METOPROLOL SUCCINATE (ER) 100 MG TAB.ER.24H PO SCH (10:36)
[2020-07-27] MEDS: VITAMIN E (DL,TOCOPHERYL ACET) 400 UNIT CAP PO SCH (10:36)
[2020-07-27] MEDS: POTASSIUM CHLORIDE ER 10 MEQ TAB.ER.PRT PO SCH (10:36)
[2020-07-27] MEDS: MAGNESIUM OXIDE 400 MG TAB PO SCH (10:37)
[2020-07-27] MEDS: CHOLECALCIFEROL 400 UNIT TAB PO SCH (10:37)
[2020-07-27] MEDS: ATORVASTATIN 10 MG TAB PO SCH (10:37)
[2020-07-27] MEDS: ASCORBIC ACID 500 MG TAB PO SCH (10:38)
[2020-07-27] MEDS: FUROSEMIDE 40 MG TAB PO SCH ×2 (10:38→17:02)
[2020-07-27] MEDS: FAMOTIDINE 20 MG TAB PO SCH (10:38)
--- NOTE | 2020-07-27 11:27 | P.PN ---
Subjective Progress Note Date: 07/27/20 Principal diagnosis: Postoperative hypercapnic respiratory failure, unexpected. Requiring reintubation post hip surgery. 84-year-old white female patient that came into the hospital on 07/21/2020 following a fall out of her chair landing on her right hip and sustaining a right hip fracture. X-ray of the right hip and AP pelvis showed acute intertrochanteric fracture of the right femur. Moderate osteoarthritis in the hip joints. Brain CT showed mild cerebral atrophy, with minimal chronic small vessel ischemia no acute intracranial abnormality. Chest x-ray on admission s howed pulmonary interstitial density consistent with pulmonary fibrosis, mild heart failure could not be excluded. Past medical history is significant for coronary artery disease, diabetes type II, hypertension, hyperlipidemia, osteoarthritis, history of Her on 01/03/2018, previous cardiac stent placements, patient is a former smoker. In preop. Patient was seen by cardiology and cleared for surgery. She has had no recent history of chest discomfort or shortness of breath. On 07/23/2020 patient underwent closed reduction and IMN of the right hip by Dr. Betts. Following surgery patient was extubated in the recovery, however she remains very obtunded, she was placed on BiPAP support, and we were urgently consulted for ICU placement. In view of her ongoing decreased level of consciousness, we recommended the reintubation and placement in the intensive care unit. Patient is seen in intensive care unit, she is on assist-control mode of ventilation with a rate of 16, tidal volume 450, FiO2 is 80% and PEEP of 5, blood gas was obtained showing pO2 of 78, pCO2 51, and pH of 7.18. Amp bicarb was given. Patient had a right IJ triple lumen catheter placed, and right radial art line placed. She was given a liter bolus. She is in sinus mechanism, she did have an episode of transient hypotension for which fluid bolus was given, however as she started to wake up she is actually becoming hypertensive and she will be placed on sedation. Chest x-ray was obtained showing interstitial prominence and possibility of mild heart failure. We'll give the patient a dose of Lasix as well. No fever. Patient was reevaluated today on 07/24/20, patient remains on mechanical ventilation, her ventilator settings are assist control rate of 2010 volume is 450 FiO2 50% PEEP of 5. ABG showed a pO2 of 159 pCO2 of 36 pH of 7.3. Hemoglobin is 7.0, and she is to receive 1 unit of packed RBCs today. Urine output remains marginal. Blood pressure is marginal. Patient was on Dobutrex o vernight, today I have recommended stopping the the V. tach, and I recommended norepinephrine. Patient was given Lasix last night, and this morning she received 40 mg IV push times one. Considering that ABG I cut down her FiO2 down to 40%, and I discontinued Dobutrex and kept her on norepinephrine for low blood pressure titrating to a mean of 60. Patient is also on propofol at 35 mcg/kg/m, however I plan to gradually transition the patient to Precedex, hoping to extubate the patient sometime today. Once the patient is awake and appropriate, she will be given a trial of pressure support of 8 and CPAP, and if tolerated will proceed to extubating the patient. Patient is to also be seen by cardiology for her multiple cardiac issues including severe aortic stenosis. And chronic atrial fibrillation presently she is in sinus rhythm Reevaluated today on 07/25/20, patient was extubated yesterday, and she tolerated the extubation quite well over the last 24 hours. Remains in the ICU. Blood pressure seems to be stable, off levo fed since 7 AM this morning. She is in atrial fibrillation with a rate of 112. She is on 3 L nasal cannula with O2 saturation of 96%. She had intermittent episodes of confusion last night. And she was placed on Lasix 40 mg twice a day, she had a -474 that fluid balance in the last 24 hours. Chest x-ray continues to show mild interstitial edema, creatinine is up to 1.5. And on physical examination has crackles at the bases, and mild bipedal edema. Considering her renal functioning is slightly worse, we'll keep the diuretics and will cut down the Lasix to once daily instead of twice a day. And the patient will be given Lovenox 30 mg subcu daily for DVT prophylaxis. Not to mention the patient is in atrial fibrillation, however cardiology is a bit reluctant to restart Eliquis at this point. Patient was reevaluated today on 07/26/20, tolerated extubation for the last 48 hours, however she remains in the ICU, presently on 2 L nasal cannula, relatively asymptomatic. She is in atrial fibrillation with controlled rate. She has been off norepinephrine for the last 24 hours. She did receive 2 units of packed RBCs for low hemoglobin, hemoglobin today is 7.4, and this is mostly secondary to surgical blood loss unless proven otherwise. Chest x-ray today continues to show mild interstitial edema, and suspect some underlying interstitial lung disease/pulmonary fibrosis. Again the patient is hemodynamically stable, and I plan to consider transferring the patient out of the ICU in the next 24 hours. Reevaluated today on 07/27/20, patient remains in the ICU, off pressors, off inotropes, chest x-ray continues to show mild interstitial edema, patient remains on Lasix at 40 mg by mouth twice a day, she seems to be in no distress, she is comfortable, on few liters nasal cannula. Remains in atrial fibrillation, however her rate controlled. CBC is relatively normal, hemoglobin is 8.8. Electrolytes are normal BUN is 48 creatinine is 1.50. Patient is more oriented and mentation has significantly improved over the last couple of days. Objective - Vital Signs Vital signs: Vital Signs Temp 98.4 F 07/27/20 04:00 Pulse 120 H 07/27/20 05:00 Resp 21 07/27/20 05:00 BP 107/90 07/27/20 05:00 Pulse Ox 93 L 07/27/20 05:00 Intake & Output 07/26/20 07/27/20 07/27/20 18:59 06:59 18:59 Intake Total 520 640 Output Total 610 970 Balance -90 -330 Intake: IV 210 290 Levofloxacin 250Mg-D5w 50 Pmx 250 mg In Dextrose/ Water 1 50ml.bag @ 50 mls /hr IVPB Q24H [facility] Rx#: [id number] Pressure bags (0.9 NaCl-) 30 Sodium Chloride 0.9% 1, 180 240 000 ml @ 20 mls/hr IV . Q24H OLIVIA Rx#:[id number] Oral 350 Blood Product 310 Rc As-1 Unit 310 [id number] Output: Urine 610 970 Other: Voiding Method Indwelling Catheter Indwelling Catheter ABP, PAP, CO, CI - Last Documented Arterial Blood Pressure 139/55 - Exam GENERAL EXAM: Sedated, intubated, 84-year-old elderly female on 2 liters nasal cannula, in no distress. HEENT: Head is atraumatic, normocephalic, PERRLA, EOMI, no icterus, no neck masses, right IJ central line is noted, however we plan to remove it today. CHEST: No chest wall deformity. Symmetrical expansion. LUNGS: Equal air entry , minimal crackles at the bases. No rhonchi no wheezes. CVS: Irregular irregular rhythm, normal S1 and S2, no gallops, 2/6 systolic murmur thought the precordium. ABDOMEN: Soft, nontender. No hepatosplenomegaly, normal bowel sounds, no guarding or rigidity. EXTREMITIES: No clubbing, 1+ bipedal edema, no cyanosis, 2+ pulses and upper and lower extremities. MUSCULOSKELETAL: No deformities noted SKIN: No rashes CENTRAL NERVOUS SYSTEM: Awake, follows instructions, mental status significantly improved - Labs CBC & Chem 7: 07/27/20 04:21 07/27/20 04:21 Labs: Abnormal Lab Results - Last 24 Hours (Table) 07/23/20 07/26/20 07/26/20 Range/Units 07:41 11:33 11:50 RBC (3.80-5.40) m/uL Hgb (11.4-16.0) gm/dL Hct (34.0-46.0) % Sodium (137-145) mmol/L Carbon Dioxide (22-30) mmol/L BUN (7-17) mg/dL Creatinine (0.52-1.04) mg/dL Glucose (74-99) mg/dL POC Glucose (mg/dL) 169 H (75-99) mg/dL Calcium (8.4-10.2) mg/dL Urine Nitrite (Negative) Ur Leukocyte Esterase (Negative) Urine WBC (0-5) /hpf Calcium Oxalate Crystal (None) /hpf Hyaline Casts (0-2) /lpf Urine Mucus (None) /hpf Crossmatch See Detail See Detail 07/26/20 07/26/20 07/26/20 Range/Units 16:46 17:49 18:46 RBC 2.98 L (3.80-5.40) m/uL Hgb 9.0 L D (11.4-16.0) gm/dL Hct 28.9 L (34.0-46.0) % Sodium (137-145) mmol/L Carbon Dioxide (22-30) mmol/L BUN (7-17) mg/dL Creatinine (0.52-1.04) mg/dL Glucose (74-99) mg/dL POC Glucose (mg/dL) 165 H (75-99) mg/dL Calcium (8.4-10.2) mg/dL Urine Nitrite Positive H (Negative) Ur Leukocyte Esterase Large H (Negative) Urine WBC 20 H (0-5) /hpf Calcium Oxalate Crystal Rare H (None) /hpf Hyaline Casts 8 H (0-2) /lpf Urine Mucus Rare H (None) /hpf Crossmatch 07/26/20 07/27/20 07/27/20 Range/Units 20:21 04:21 04:21 RBC 2.82 L (3.80-5.40) m/uL Hgb 8.8 L (11.4-16.0) gm/dL Hct 27.1 L (34.0-46.0) % Sodium 135 L (137-145) mmol/L Carbon Dioxide 21 L (22-30) mmol/L BUN 48 H (7-17) mg/dL Creatinine 1.50 H (0.52-1.04) mg/dL Glucose 153 H (74-99) mg/dL POC Glucose (mg/dL) 221 H (75-99) mg/dL Calcium 7.8 L (8.4-10.2) mg/dL Urine Nitrite (Negative) Ur Leukocyte Esterase (Negative) Urine WBC (0-5) /hpf Calcium Oxalate Crystal (None) /hpf Hyaline Casts (0-2) /lpf Urine Mucus (None) /hpf Crossmatch 07/27/20 Range/Units 07:19 RBC (3.80-5.40) m/uL Hgb (11.4-16.0) gm/dL Hct (34.0-46.0) % Sodium (137-145) mmol/L Carbon Dioxide (22-30) mmol/L BUN (7-17) mg/dL Creatinine (0.52-1.04) mg/dL Glucose (74-99) mg/dL POC Glucose (mg/dL) 167 H (75-99) mg/dL Calcium (8.4-10.2) mg/dL Urine Nitrite (Negative) Ur Leukocyte Esterase (Negative) Urine WBC (0-5) /hpf Calcium Oxalate Crystal (None) /hpf Hyaline Casts (0-2) /lpf Urine Mucus (None) /hpf Crossmatch Microbiology - Last 24 Hours (Table) 07/26/20 18:46 Urine Culture - Preliminary Urine,Catheterized Assessment and Plan Assessment: Unexpected Postoperative hypercapnic respiratory failure related to acute exacerbation of systolic CHF, chest x-ray showing findings consistent with pulmonary edema, acute systolic congestive heart failure. and hypoventilation related to operative sedation. Patient was reintubated in the PACU and transferred to the ICU. Patient was extubated in the recovery room, but had to be reintubated for the above specific issues. Status post. Right hip subtrochanteric fracture, closed, displaced, comminuted, status post closed reduction and IM and of the right hip, postoperative day #4 Successful extubation on 07/24/20. 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 Recommendation: Discontinue right IJ central line. Transfer patient to a monitor bed on selective today. Continue oxygen at 2 L/m. Continue Lasix. Consider transitioning the patient to Eliquis and discontinue Lovenox. Continue Pain control. Continue Incentive spirometry. Continue gentle diuresis. We'll continue to follow Time with Patient: Less than 30
[2020-07-27 11:58] LABS: Glucose,Whole Blood 202 mg/dL (75-99)
[2020-07-27] MEDS: SODIUM CHLORIDE 0.9% 1,000 ML IV SCH (12:09)
--- NOTE | 2020-07-27 12:40 | P.PN ---
Subjective Progress Note Date: 07/27/20 This 84-year-old female is status post hip surgery Patient was extubated yesterday. Patient seemed to be doing well. Denies any chest pain or shortness of breath. Patient is in atrial fibrillation with controlled and corresponds. She is off Levophed. Patient received blood transfusion for low hemoglob inrelated to surgical loss. Chest x-ray showed mild interstitial edema. Patient is being constricted for transfer to select care unit. Overall patient seemed to be clinically stable 07/27/2020: This patient remains extubated. Sitting up in the chair and seemed to be reasonably comfortable. Denies any chest pain or shortness of breath, chest x-ray showed mild congestion. Patient is on diuretics. Patient's heart rate is controlled. She is in atrial fibrillation. Overall patient seemed to be progressing. Continue current medical therapy. Possible transfer to telemetry unit. Increase activity as tolerated Objective - Vital Signs Vital signs: Vital Signs Temp 97.6 F 07/27/20 12:00 Pulse 97 07/27/20 12:00 Resp 21 07/27/20 12:00 BP 136/71 07/27/20 12:00 Pulse Ox 92 L 07/27/20 12:00 Intake & Output 07/26/20 07/27/20 07/27/20 18:59 06:59 18:59 Intake Total 520 640 160 Output Total 610 970 210 Balance -90 -330 -50 Intake: IV 210 290 160 Levofloxacin 250Mg-D5w 50 Pmx 250 mg In Dextrose/ Water 1 50ml.bag @ 50 mls /hr IVPB Q24H [facility] Rx#: [id number] Pressure bags (0.9 NaCl-) 30 Sodium Chloride 0.9% 1, 180 240 160 000 ml @ 20 mls/hr IV . Q24H [facility] Rx#:[id number] Oral 350 Blood Product 310 Rc As-1 Unit 310 [id number] Output: Urine 610 970 210 Other: Voiding Method Indwelling Catheter Indwelling Catheter ABP, PAP, CO, CI - Last Documented Arterial Blood Pressure 139/55 - Exam GENERAL EXAM: Patient is alert and oriented and doesn't appear to be in any acute distress HEENT: Normocephalic. Normal reaction of pupils, equal size, normal range of extraocular motion. No erythema or exudates in the throat. NECK: No masses, no nuchal rigidity. CHEST: No chest wall deformity. LUNGS: [Equal air entry with no crackles or wheeze.] HEART: [S1 and S2 normal with no audible mumurs or gallops. Irregular rhythm ABDOMEN: No hepatosplenomegaly, normal bowel sounds, no guarding or rigidity. SKIN: No rashes CENTRAL NERVOUS SYSTEM: No focal deficits. EXTREMITIES: [No cyanosis, clubbing or edema. - Labs CBC & Chem 7: 07/27/20 04:21 07/27/20 04:21 Labs: Abnormal Lab Results - Last 24 Hours (Table) 07/23/20 07/26/20 07/26/20 Range/Units 07:41 11:33 16:46 RBC (3.80-5.40) m/uL Hgb (11.4-16.0) gm/dL Hct (34.0-46.0) % Sodium (137-145) mmol/L Carbon Dioxide (22-30) mmol/L BUN (7-17) mg/dL Creatinine (0.52-1.04) mg/dL Glucose (74-99) mg/dL POC Glucose (mg/dL) 165 H (75-99) mg/dL Calcium (8.4-10.2) mg/dL Urine Nitrite (Negative) Ur Leukocyte Esterase (Negative) Urine WBC (0-5) /hpf Calcium Oxalate Crystal (None) /hpf Hyaline Casts (0-2) /lpf Urine Mucus (None) /hpf Crossmatch See Detail See Detail 07/26/20 07/26/20 07/26/20 Range/Units 17:49 18:46 20:21 RBC 2.98 L (3.80-5.40) m/uL Hgb 9.0 L D (11.4-16.0) gm/dL Hct 28.9 L (34.0-46.0) % Sodium (137-145) mmol/L Carbon Dioxide (22-30) mmol/L BUN (7-17) mg/dL Creatinine (0.52-1.04) mg/dL Glucose (74-99) mg/dL POC Glucose (mg/dL) 221 H (75-99) mg/dL Calcium (8.4-10.2) mg/dL Urine Nitrite Positive H (Negative) Ur Leukocyte Esterase Large H (Negative) Urine WBC 20 H (0-5) /hpf Calcium Oxalate Crystal Rare H (None) /hpf Hyaline Casts 8 H (0-2) /lpf Urine Mucus Rare H (None) /hpf Crossmatch 07/27/20 07/27/20 07/27/20 Range/Units 04:21 04:21 07:19 RBC 2.82 L (3.80-5.40) m/uL Hgb 8.8 L (11.4-16.0) gm/dL Hct 27.1 L (34.0-46.0) % Sodium 135 L (137-145) mmol/L Carbon Dioxide 21 L (22-30) mmol/L BUN 48 H (7-17) mg/dL Creatinine 1.50 H (0.52-1.04) mg/dL Glucose 153 H (74-99) mg/dL POC Glucose (mg/dL) 167 H (75-99) mg/dL Calcium 7.8 L (8.4-10.2) mg/dL Urine Nitrite (Negative) Ur Leukocyte Esterase (Negative) Urine WBC (0-5) /hpf Calcium Oxalate Crystal (None) /hpf Hyaline Casts (0-2) /lpf Urine Mucus (None) /hpf Crossmatch 07/27/20 Range/Units 11:56 RBC (3.80-5.40) m/uL Hgb (11.4-16.0) gm/dL Hct (34.0-46.0) % Sodium (137-145) mmol/L Carbon Dioxide (22-30) mmol/L BUN (7-17) mg/dL Creatinine (0.52-1.04) mg/dL Glucose (74-99) mg/dL POC Glucose (mg/dL) 202 H (75-99) mg/dL Calcium (8.4-10.2) mg/dL Urine Nitrite (Negative) Ur Leukocyte Esterase (Negative) Urine WBC (0-5) /hpf Calcium Oxalate Crystal (None) /hpf Hyaline Casts (0-2) /lpf Urine Mucus (None) /hpf Crossmatch Microbiology - Last 24 Hours (Table) 07/26/20 18:46 Urine Culture - Preliminary Urine,Catheterized Assessment and Plan (1) Hip fracture Current Visit: Yes Status: Acute Code(s): S72.009A - FRACTURE OF UNSP PART OF NECK OF UNSP FEMUR, INIT SNOMED Code(s): 311124225 (2) Anemia Current Visit: No Status: Acute Code(s): D64.9 - ANEMIA, UNSPECIFIED SNOMED Code(s): 162367772 (3) Atrial fibrillation with RVR Current Visit: No Status: Acute Code(s): I48.91 - UNSPECIFIED ATRIAL FIBRILLATION SNOMED Code(s): 760264800829859 (4) S/P TAVR (transcatheter aortic valve replacement) Current Visit: No Status: Acute Code(s): Z95.2 - PRESENCE OF PROSTHETIC HEART VALVE SNOMED Code(s): 0797455919490 Plan: Remained stable. Still on diuretics for CHF. Heart rate is reasonably controlled. Increase activity. Transferred to telemetry
[2020-07-27 17:31] LABS: Glucose,Whole Blood 165 mg/dL (75-99)
--- NOTE | 2020-07-27 17:45 | P.PN ---
Subjective On-call hospitalist covering for Dr. Bose over the weekend. Dr. Bose will resume the care of the patient on 07/28 This is a pleasant 84 years old female who was admitted with a fall and right hip fracture, she underwent surgical reduction of her hip fracture, post operatively she had to be intubated and [facility], eventually patient got extubated however her hospital course was complicated with A. fib and RVR, cardiology consult obtained and patient started on Cardizem, currently oral and rate is controlled currently. She is currently off levophed for more than 24 hours She remains little bit confused, although she is lying comfortable in bed. Also patient had anemia and received 2 units of blood transfusion. Another unit of blood transfusion is given yesterday Urine analysis today is suspicious for infection and she was started on Levaquin. Patient currently remain in the ICU for 24 hours and possible transfer to select unit in the next 24 hours 07/27/2020 Patient is seen and examined today in the ICU, she is fully awake and oriented to time place but not to person. She is oriented to the surrounding scar. She denies specific complaints with no chest pain or dyspnea or GI symptoms. Braun catheter is in place with clear urine. I think her mentation is improved slightly today. Patient found to have UTI and started on Levaquin renal dose. Urine culture is requested and result is pending. EKG to monitor QTC show no QTC prolongation with rate and rhythm as A. fib at 112 and QTC 477. Patient in the morning also noticed to have A. fib and RVR on 120 she cut her metoprolol dose the morning and now her heart rate is 91. labs look stable and creatinine is stable at 1.5. Sugar is controlled Patient is to move out of the ICU today Discussed with the staff. Also cardiology team were at bedside and they're aware of her A. fib and RVR this morning Review of systems CONSTITUTIONAL: No fever, no malaise, no fatigue. HEENT: No recent visual problems or hearing problems. Denied any sore throat. CARDIOVASCULAR: No orthopnea, PND, no palpitations, no syncope. PULMONARY: No shortness of breath, no cough, no hemoptysis. GASTROINTESTINAL: No diarrhea, no nausea, no vomiting, no abdominal pain. Normoactive bowel sounds. NEUROLOGICAL: No headaches, no weakness, no numbness. HEMATOLOGICAL: Denies any bleeding or petechiae. Active Medications Generic Name Dose Route Start Last Admin Trade Name Freq PRN Reason Stop Dose Admin Acetaminophen 650 mg 07/21/20 21:56 07/27/20 06:27 Acetaminophen Tab 325 Mg Tab PO 650 mg Q6HR PRN Administration Mild Pain or Fever > 100.5 Allopurinol 150 mg 07/22/20 09:00 07/27/20 10:35 Allopurinol 100 Mg Tab PO 150 mg DAILY [facility] Administration Ascorbic Acid 500 mg 07/22/20 09:00 07/27/20 10:38 Ascorbic Acid 500 Mg Tab PO 500 mg DAILY [facility] Administration Atorvastatin Calcium 10 mg 07/22/20 09:00 07/27/20 10:37 Atorvastatin 10 Mg Tab PO 10 mg DAILY [facility] Administration Cholecalciferol 800 unit 07/22/20 09:00 07/27/20 10:37 Cholecalciferol 400 Unit Tab PO 800 unit DAILY [facility] Administration Diltiazem HCl 90 mg 07/24/20 19:00 07/27/20 06:28 Diltiazem Oral 30 Mg Tab PO 90 mg BID [facility] Administration Docusate Sodium 200 mg 07/22/20 09:00 07/27/20 10:36 Docusate 100 Mg Cap PO 200 mg DAILY [facility] Administration Enoxaparin Sodium 30 mg 07/25/20 09:15 07/27/20 10:35 Enoxaparin 30 Mg/0.3 Ml Syringe SQ 30 mg DAILY [facility] Administration Famotidine 20 mg 07/22/20 09:00 07/27/20 10:38 Famotidine 20 Mg Tab PO 20 mg DAILY [facility] Administration Furosemide 40 mg 07/25/20 16:00 07/27/20 17:02 Furosemide 40 Mg Tab PO 40 mg BID@0900,1600 [facility] Administration Sodium Chloride 1,000 mls @ 20 mls/hr 07/21/20 22:00 07/27/20 12:09 Saline 0.9% IV 20 mls/hr .Q24H [facility] Administration Levofloxacin/Dextrose 250 mg/ 50 mls @ 50 mls/hr 07/26/20 21:00 07/26/20 21:05 IV Solution IVPB 50 mls/hr Q24H [facility] Administration Insulin Aspart 0 unit 07/24/20 21:00 07/27/20 17:19 Insulin Aspart (Novolog) 100 Unit/Ml Vial SQ 2 unit ACHS [facility] Administration Protocol Lidocaine HCl 0.1 ml 07/23/20 18:13 Lidocaine 1% (10mg/Ml) For Iv Start INTRADERMA PER PROTOCOL PRN IV Start Magnesium Oxide 400 mg 07/22/20 09:00 07/27/20 10:37 Magnesium Oxide 400 Mg Tab PO 400 mg DAILY [facility] Administration Metoprolol Succinate 100 mg 07/24/20 18:45 07/27/20 10:36 Metoprolol Succinate (Er) 100 Mg Tab.Er.24h PO 100 mg DAILY [facility] Administration Multivitamins 1 each 07/22/20 09:00 07/27/20 10:36 Multivitamins, Thera 1 Each Tab PO 1 each DAILY [facility] Administration Naloxone HCl 0.2 mg 07/21/20 21:56 Naloxone 0.4 Mg/Ml 1 Ml Vial IV Q2M PRN Opioid Reversal Ondansetron HCl 4 mg 07/21/20 21:56 Ondansetron 4 Mg/2 Ml Vial IVP Q8HR PRN Nausea And Vomiting Potassium Chloride 10 meq 07/22/20 09:00 07/27/20 10:36 Potassium Chloride Er 10 Meq Tab.Er.Prt PO 10 meq DAILY [facility] Administration Vitamin E 400 unit 07/22/20 09:00 07/27/20 10:36 Vitamin E (Dl,Tocopheryl Acet) 400 Unit Cap PO 400 unit DAILY [facility] Administration Objective - Vital Signs Vital signs: Vital Signs Temp 97.6 F 07/27/20 12:00 Pulse 79 07/27/20 16:22 Resp 16 07/27/20 16:22 BP 111/85 07/27/20 16:22 Pulse Ox 95 07/27/20 16:22 Intake & Output 07/26/20 07/27/20 07/27/20 18:59 06:59 18:59 Intake Total 520 640 160 Output Total 610 970 210 Balance -90 -330 -50 Intake: IV 210 290 160 Levofloxacin 250Mg-D5w 50 Pmx 250 mg In Dextrose/ Water 1 50ml.bag @ 50 mls /hr IVPB Q24H [facility] Rx#: [id number] Pressure bags (0.9 NaCl-) 30 Sodium Chloride 0.9% 1, 180 240 160 000 ml @ 20 mls/hr IV . Q24H [facility] Rx#:[id number] Oral 350 Blood Product 310 Rc As-1 Unit 310 [id number] Output: Urine 610 970 210 Other: Voiding Method Indwelling Catheter Indwelling Catheter Indwelling Catheter ABP, PAP, CO, CI - Last Documented Arterial Blood Pressure 139/55 - Exam -GENERAL: The patient is alert and oriented x2, not in any acute distress. Obese HEENT: Pupils are round and equally reacting to light. EOMI. No scleral icterus. No conjunctival pallor. Normocephalic, atraumatic. No pharyngeal erythema. No thyromegaly. CARDIOVASCULAR: S1 and S2 present. No murmurs, rubs, or gallops. PULMONARY: Chest is clear to auscultation, no wheezing or crackles. -ABDOMEN: Soft, nontender, nondistended, normoactive bowel sounds. No palpable organomegaly. Braun catheter is in place MUSCULOSKELETAL: No joint swelling or deformity. EXTREMITIES: No cyanosis, clubbing, or pedal edema. NEUROLOGICAL: Gross neurological examination did not reveal any focal deficits. SKIN: No rashes. no petechiae. - Labs CBC & Chem 7: 07/27/20 04:21 07/27/20 04:21 Labs: Abnormal Lab Results - Last 24 Hours (Table) 07/26/20 07/26/20 07/26/20 Range/Units 11:33 17:49 18:46 RBC 2.98 L (3.80-5.40) m/uL Hgb 9.0 L D (11.4-16.0) gm/dL Hct 28.9 L (34.0-46.0) % Sodium (137-145) mmol/L Carbon Dioxide (22-30) mmol/L BUN (7-17) mg/dL Creatinine (0.52-1.04) mg/dL Glucose (74-99) mg/dL POC Glucose (mg/dL) (75-99) mg/dL Calcium (8.4-10.2) mg/dL Urine Nitrite Positive H (Negative) Ur Leukocyte Esterase Large H (Negative) Urine WBC 20 H (0-5) /hpf Calcium Oxalate Crystal Rare H (None) /hpf Hyaline Casts 8 H (0-2) /lpf Urine Mucus Rare H (None) /hpf Crossmatch See Detail 07/26/20 07/27/20 07/27/20 Range/Units 20:21 04:21 04:21 RBC 2.82 L (3.80-5.40) m/uL Hgb 8.8 L (11.4-16.0) gm/dL Hct 27.1 L (34.0-46.0) % Sodium 135 L (137-145) mmol/L Carbon Dioxide 21 L (22-30) mmol/L BUN 48 H (7-17) mg/dL Creatinine 1.50 H (0.52-1.04) mg/dL Glucose 153 H (74-99) mg/dL POC Glucose (mg/dL) 221 H (75-99) mg/dL Calcium 7.8 L (8.4-10.2) mg/dL Urine Nitrite (Negative) Ur Leukocyte Esterase (Negative) Urine WBC (0-5) /hpf Calcium Oxalate Crystal (None) /hpf Hyaline Casts (0-2) /lpf Urine Mucus (None) /hpf Crossmatch 07/27/20 07/27/20 Range/Units 07:19 11:56 RBC (3.80-5.40) m/uL Hgb (11.4-16.0) gm/dL Hct (34.0-46.0) % Sodium (137-145) mmol/L Carbon Dioxide (22-30) mmol/L BUN (7-17) mg/dL Creatinine (0.52-1.04) mg/dL Glucose (74-99) mg/dL POC Glucose (mg/dL) 167 H 202 H (75-99) mg/dL Calcium (8.4-10.2) mg/dL Urine Nitrite (Negative) Ur Leukocyte Esterase (Negative) Urine WBC (0-5) /hpf Calcium Oxalate Crystal (None) /hpf Hyaline Casts (0-2) /lpf Urine Mucus (None) /hpf Crossmatch Microbiology - Last 24 Hours (Table) 07/26/20 18:46 Urine Culture - Preliminary Urine,Catheterized Assessment and Plan Assessment: Acute urinary tract infection Metabolic encephalopathy secondary to above Status post fall and right hip fracture status post surgical reproduction A. fib with RVR, currently rate controlled severe aortic stenosis Hypertension Hyperlipidemia Osteoarthritis 2 diabetes mellitus History of coronary artery disease, status post stent placement Plan: This is a pleasant 84 years old female who presents with fall, hip fracture status post for surgical reduction, A. fib and RVR, respiratory failure and UTI. Continue with oral Lasix,: Start patient on Levaquin and follow-up urine culture. Continue with Cardizem. Cardiology are reluctant to start the patient on anticoagulation currently. Patient is followed closely by pulmonary/critical care team, bioinformatician and orthopedic surgeon Labs and medication were reviewed.. Continue same treatment. Continue with symptomatic treatment. Resume home medication. Monitor lytes and vitals. DVT and GI prophylaxis. Further recommendationsas per clinical course of the patien t DVT prophylaxis: Subcutaneous Lovenox GI Prophylaxis: Pepcid PT/OT: Recommended subacute rehab, we are going to consult social media assistant Prognosis is guarded
[2020-07-27] MEDS: LEVOFLOXACIN 250MG-D5W PMX 250 MG in DEXTROSE/WATER 1 50ML.BAG IVPB SCH (20:40)
[2020-07-27 20:49] LABS: Glucose,Whole Blood 281 mg/dL (75-99)
[2020-07-28 06:21] LABS: Glucose,Whole Blood 148 mg/dL (75-99)
[2020-07-28] MEDS: INSULIN ASPART (NovoLOG) 100 UNIT/ML VIAL SQ SCH ×4 (06:23→22:39)
--- NOTE | 2020-07-28 08:25 | P.PN ---
Subjective Principal diagnosis: Patient with change in status The patient is postop day #6 for hip fracture. The patient is now on a general medical floor still tachycardic. Appropriate rate control medications have been restarted. No sniffing chest pain or shortness of breath. The patient is asking to be sent home. Feeding difficulties. Objective - Vital Signs Vital signs: Vital Signs Temp 97.6 F 07/28/20 02:40 Pulse 108 H 07/28/20 02:40 Resp 19 07/28/20 02:40 BP 130/72 07/28/20 02:40 Pulse Ox 96 07/28/20 02:40 Intake & Output 07/27/20 07/28/20 07/28/20 18:59 06:59 18:59 Intake Total 160 100 Output Total 1110 1300 Balance -950 -1200 Weight 92.5 kg Intake: IV 160 Sodium Chloride 0.9% 1, 160 000 ml @ 20 mls/hr IV . Q24H [facility] Rx#:[id number] Intake, IV Titration 100 Amount Levofloxacin 250Mg-D5w 100 Pmx 250 mg In Dextrose/ Water 1 50ml.bag @ 50 mls /hr IVPB Q24H [facility] Rx#: [id number] Output: Urine 1110 1300 Other: Voiding Method Indwelling Catheter Indwelling Catheter # Voids 1 # Bowel Movements 1 ABP, PAP, CO, CI - Last Documented Arterial Blood Pressure 139/55 - Constitutional General appearance: Present: thin - EENT Eyes: Absent: abnormal pupil - Respiratory Respiratory: bilateral: CTA - Cardiovascular Rhythm: regular Heart sounds: normal: S1, S2 Abnormal Heart Sounds: Absent: S3 Gallop - Gastrointestinal General gastrointestinal: Present: soft. Absent: tenderness - Integumentary Integumentary: Absent: cellulitis - Musculoskeletal Musculoskeletal: Present: gait normal - Labs CBC & Chem 7: 07/27/20 04:21 07/27/20 04:21 Labs: Abnormal Lab Results - Last 24 Hours (Table) 07/27/20 07/27/20 07/27/20 Range/Units 11:56 17:19 20:20 POC Glucose (mg/dL) 202 H 165 H 281 H (75-99) mg/dL 07/28/20 Range/Units 06:03 POC Glucose (mg/dL) 148 H (75-99) mg/dL Microbiology - Last 24 Hours (Table) 07/26/20 18:46 Urine Culture - Preliminary Urine,Catheterized Gram Neg Bacilli Assessment and Plan (1) Hip fracture Current Visit: Yes Status: Acute Code(s): S72.009A - FRACTURE OF UNSP PART OF NECK OF UNSP FEMUR, INIT SNOMED Code(s): 612806639 (2) Atrial fibrillation with RVR Current Visit: No Status: Acute Code(s): I48.91 - UNSPECIFIED ATRIAL FIBRILLATION SNOMED Code(s): 323306236702408 (3) History of atrial fibrillation Current Visit: No Status: Chronic Code(s): Z86.79 - PERSONAL HISTORY OF OTHER DISEASES OF THE CIRCULATORY SYSTEM SNOMED Code(s): 637866803 (4) History of hyperlipidemia Current Visit: No Status: Chronic Code(s): Z86.39 - PERSONAL HISTORY OF END O, NUTRITIONAL AND METABOLIC DISEASE SNOMED Code(s): 530602695 (5) History of hypertension Current Visit: No Status: Chronic Code(s): Z86.79 - PERSONAL HISTORY OF OTHER DISEASES OF THE CIRCULATORY SYSTEM SNOMED Code(s): 805341513 Plan: Improvement from a respiratory perspective. Still tachycardic. Appreciate cardiology input. Hopefully can discharge in next 24-48 hours. Increase ambulation per orthopedics.
[2020-07-28] MEDS: DILTIAZEM ORAL 30 MG TAB PO SCH (08:47)
[2020-07-28] MEDS: FAMOTIDINE 20 MG TAB PO SCH (08:47)
[2020-07-28] MEDS: ASCORBIC ACID 500 MG TAB PO SCH (08:47)
[2020-07-28] MEDS: DOCUSATE 100 MG CAP PO SCH (08:48)
[2020-07-28] MEDS: allopurinoL 100 MG TAB PO SCH (08:48)
[2020-07-28] MEDS: ATORVASTATIN 10 MG TAB PO SCH (08:48)
[2020-07-28] MEDS: FUROSEMIDE 40 MG TAB PO SCH ×2 (08:48→18:00)
[2020-07-28] MEDS: POTASSIUM CHLORIDE ER 10 MEQ TAB.ER.PRT PO SCH (08:48)
[2020-07-28] MEDS: METOPROLOL SUCCINATE (ER) 100 MG TAB.ER.24H PO SCH (08:48)
[2020-07-28] MEDS: CHOLECALCIFEROL 400 UNIT TAB PO SCH (08:49)
[2020-07-28] MEDS: VITAMIN E (DL,TOCOPHERYL ACET) 400 UNIT CAP PO SCH (08:49)
[2020-07-28] MEDS: MAGNESIUM OXIDE 400 MG TAB PO SCH (08:49)
[2020-07-28] MEDS: MULTIVITAMINS, THERA 1 EACH TAB PO SCH (08:49)
[2020-07-28] MEDS: ENOXAPARIN 30 MG/0.3 ML SYRINGE SQ SCH (08:49)
[2020-07-28] MEDS ORDERED: DILTIAZEM ORAL 30 MG TAB PO STA (09:05)
[2020-07-28 09:42] LABS: Potassium 4.1 mmol/L (3.5-5.1)
[2020-07-28] MEDS: APIXABAN 2.5 MG TABLET PO SCH ×2 (11:43→20:01)
[2020-07-28] MEDS: ACETAMINOPHEN TAB 325 MG TAB PO PRN (11:43)
[2020-07-28] MEDS ORDERED: DEXTROSE 5% IN WATER 100 ML with AMIODARONE 150 MG IV ONE (11:45)
[2020-07-28 11:56] LABS: Glucose,Whole Blood 194 mg/dL (75-99)
--- NOTE | 2020-07-28 13:13 | P.PN ---
Subjective Progress Note Date: 07/28/20 Principal diagnosis: status post IM nail right subtrochanteric femur fracture Patient was evaluated today in the selective care unit. She is resting comfortably in bed, she has family present at bedside. She she did have increasing pain today of the right leg after getting up with therapy. currently denies any headaches, lightheadedness, chest pain, shortness of breath, nausea vomiting, fever or chills. Objective - Vital Signs Vital signs: Vital Signs Temp 97.6 F 07/28/20 02:40 Pulse 120 H 07/28/20 12:00 Resp 16 07/28/20 12:00 BP 116/72 07/28/20 12:00 Pulse Ox 95 07/28/20 12:00 Intake & Output 07/27/20 07/28/20 07/28/20 18:59 06:59 18:59 Intake Total 160 100 240 Output Total 1110 1300 350 Balance -950 -1200 -110 Weight 92.5 kg Intake: IV 160 Sodium Chloride 0.9% 1, 160 000 ml @ 20 mls/hr IV . Q24H [facility] Rx#:[id number] Intake, IV Titration 100 Amount Levofloxacin 250Mg-D5w 100 Pmx 250 mg In Dextrose/ Water 1 50ml.bag @ 50 mls /hr IVPB Q24H [facility] Rx#: [id number] Oral 240 Output: Urine 1110 1300 350 Other: Voiding Method Indwelling Catheter Indwelling Catheter Indwelling Catheter # Voids 1 # Bowel Movements 1 ABP, PAP, CO, CI - Last Documented Arterial Blood Pressure 139/55 - Exam right lower extremity: Postop bandages are in good position and condition, no obvious drainage. Soft tissue swelling present throughout the lower extremity, compartments are soft and compressible. Calf is soft with palpation. Patient is able to wiggle the toes. Dorsalis pedis pulses 2+. - Labs CBC & Chem 7: 07/27/20 04:21 07/28/20 09:10 Labs: Abnormal Lab Results - Last 24 Hours (Table) 07/27/20 07/27/20 07/28/20 Range/Units 17:19 20:20 06:03 Sodium (137-145) mmol/L Carbon Dioxide (22-30) mmol/L BUN (7-17) mg/dL Creatinine (0.52-1.04) mg/dL Glucose (74-99) mg/dL POC Glucose (mg/dL) 165 H 281 H 148 H (75-99) mg/dL Calcium (8.4-10.2) mg/dL 07/28/20 07/28/20 Range/Units 09:10 11:49 Sodium 135 L (137-145) mmol/L Carbon Dioxide 20 L (22-30) mmol/L BUN 54 H (7-17) mg/dL Creatinine 1.51 H (0.52-1.04) mg/dL Glucose 180 H (74-99) mg/dL POC Glucose (mg/dL) 194 H (75-99) mg/dL Calcium 8.0 L (8.4-10.2) mg/dL Microbiology - Last 24 Hours (Table) 07/26/20 18:46 Urine Culture - Preliminary Urine,Catheterized Gram Neg Bacilli Assessment and Plan Assessment: status post IM nail right subtrochanteric fracture Plan: Pain control, will add tramadol 50 mg DVT prophylaxis, has resumed Eliquis Daily dressing changes Continue to work with physical therapy weightbearing status: Toe-touch with walker An orthopedic standpoint, patient is stable for discharge to rehab. Primary admission will be switched to internal medicine. We'll be available on consult, please don't hesitate to contact us with any questions. Time with Patient: Less than 30
[2020-07-28 13:39] VITALS: BMI 36.1
--- NOTE | 2020-07-28 13:44 | P.PN ---
Subjective this is a pleasant 84-year-old female past medical history significant for paroxysmal atrial fibrillation on Eliquis, dyslipidemia, peripheral vascular disease with prior iliofemoral bypass December 2017, aortic stenosis status post TAVR December 2017, mild nonobstructive coronary artery disease and chronic kidney disease. She follows in the office with Dr. Seth. She is seen and examined sitting up in bed in no acute distress. She is in atrial fibrillation with variable rates currently between 120-130. Blood pressure 114/67. She denies shortness of breath, chest pain, dizziness or palpitations. Currently maintained on atorvastatin 10 mg daily, diltiazem 90 mg twice a day, Lasix 40 mg by mouth twice a day, Toprol 100 mg daily. Laboratory data reviewed, sodium 135, potassium 4.1, creatinine 1.51. Hemoglobin yesterday was 8.8. Eliquis has still not been resumed. GENERAL: Maintained on mechanical ventilation. NECK: Supple without JVD or thyromegaly. LUNGS: Clear to auscultation. No wheezes, rales or rhonchi. HEART: Irregular rate and rhythm with systolic ejection murmur at the base, no rubs or gallops. S1 and S2 heard. EXTREMITIES: Normal range of motion, no edema. No clubbing or cyanosis. Peripheral pulses intact. ASSESSMENT Fall Right femur fracture status post surgical repair, postoperative day #2 Acute hypercapnic respiratory failure Acute diastolic heart failure Troponin elevation secondary to oxygen supply demand mismatch, type II myocardial infarction Paroxysmal atrial fibrillation on eliquis, currently maintaining sinus mechanism Valvular heart disease status post TAVR Peripheral vascular disease status post iliofemoral bypass Hypertension Dyslipidemia Diabetes mellitus Nonobstructive coronary artery disease, per catheterization December 2017 PLAN Resume Eliquis. Discussed with PA for orthopedics. Increase Cardizem to 120 mg twice a day. Initiate amiodarone bolus and infusion. Further recommendations to follow based upon clinical course. Nurse Practitioner note has been reviewed, I agree with a documented findings and plan of care. Patient was seen and examined. Objective - Vital Signs Vital signs: Vital Signs Temp 97.6 F 07/28/20 02:40 Pulse 127 H 07/28/20 08:00 Resp 16 07/28/20 08:00 BP 114/67 07/28/20 08:00 Pulse Ox 94 L 07/28/20 08:00 Intake & Output 10/07/28/20 07/28/20 18:59 06:59 18:59 Intake Total 160 100 240 Output Total 1110 1300 Balance -950 -1200 240 Weight 92.5 kg Intake: IV 160 Sodium Chloride 0.9% 1, 160 000 ml @ 20 mls/hr IV . Q24H [facility] Rx#:[id number] Intake, IV Titration 100 Amount Levofloxacin 250Mg-D5w 100 Pmx 250 mg In Dextrose/ Water 1 50ml.bag @ 50 mls /hr IVPB Q24H [facility] Rx#: [id number] Oral 240 Output: Urine 1110 1300 Other: Voiding Method Indwelling Catheter Indwelling Catheter # Voids 1 # Bowel Movements 1 ABP, PAP, CO, CI - Last Documented Arterial Blood Pressure 139/55 - Labs CBC & Chem 7: 07/27/20 04:21 07/28/20 09:10 Labs: Abnormal Lab Results - Last 24 Hours (Table) 07/27/20 07/27/20 07/27/20 Range/Units 11:56 17:19 20:20 Sodium (137-145) mmol/L Carbon Dioxide (22-30) mmol/L BUN (7-17) mg/dL Creatinine (0.52-1.04) mg/dL Glucose (74-99) mg/dL POC Glucose (mg/dL) 202 H 165 H 281 H (75-99) mg/dL Calcium (8.4-10.2) mg/dL 07/28/20 07/28/20 Range/Units 06:03 09:10 Sodium 135 L (137-145) mmol/L Carbon Dioxide 20 L (22-30) mmol/L BUN 54 H (7-17) mg/dL Creatinine 1.51 H (0.52-1.04) mg/dL Glucose 180 H (74-99) mg/dL POC Glucose (mg/dL) 148 H (75-99) mg/dL Calcium 8.0 L (8.4-10.2) mg/dL Microbiology - Last 24 Hours (Table) 07/26/20 18:46 Urine Culture - Preliminary Urine,Catheterized Gram Neg Bacilli
--- NOTE | 2020-07-28 15:55 | P.PN ---
Subjective Progress Note Date: 07/28/20 Principal diagnosis: Postoperative hypercapnic respiratory failure, unexpected, requiring reintubation post hip surgery 84-year-old white female patient that came into the hospital on 07/21/2020 following a fall out of her chair landing on her right hip and sustaining a right hip fracture. X-ray of the right hip and AP pelvis showed acute intertrochanteric fracture of the right femur. Moderate osteoarthritis in the hip joints. Brain CT showed mild cerebral atrophy, with minimal chronic small vessel ischemia no acute intracranial abnormality. Chest x-ray on admission sh owed pulmonary interstitial density consistent with pulmonary fibrosis, mild heart failure could not be excluded. Past medical history is significant for coronary artery disease, diabetes type II, hypertension, hyperlipidemia, osteoarthritis, history of Her on 01/03/2018, previous cardiac stent placements, patient is a former smoker. In preop. Patient was seen by cardiology and cleared for surgery. She has had no recent history of chest discomfort or shortness of breath. On 07/23/2020 patient underwent closed reduction and IMN of the right hip by Dr. Betts. Following surgery patient was extubated in the recovery, however she remains very obtunded, she was placed on BiPAP support, and we were urgently consulted for ICU placement. In view of her ongoing decreased level of consciousness, we recommended the reintubation and placement in the intensive care unit. Patient is seen in intensive care unit, she is on assist-control mode of ventilation with a rate of 16, tidal volume 450, FiO2 is 80% and PEEP of 5, blood gas was obtained showing pO2 of 78, pCO2 51, and pH of 7.18. Amp bicarb was given. Patient had a right IJ triple lumen catheter placed, and right radial art line placed. She was given a liter bolus. She is in sinus mechanism, she did have an episode of transient hypotension for which fluid bolus was given, however as she started to wake up she is actually becoming hypertensive and she will be placed on sedation. Chest x-ray was obtained showing interstitial prominence and possibility of mild heart failure. We'll give the patient a dose of Lasix as well. No fever. Patient was reevaluated today on 07/24/20, patient remains on mechanical ventilation, her ventilator settings are assist control rate of 2010 volume is 450 FiO2 50% PEEP of 5. ABG showed a pO2 of 159 pCO2 of 36 pH of 7.3. Hemoglobin is 7.0, and she is to receive 1 unit of packed RBCs today. Urine output remains marginal. Blood pressure is marginal. Patient was on Dobutrex overnight, today I have recommended stopping the the V. tach, and I recommended norepinephrine. Patient was given Lasix last night, and this morning she received 40 mg IV push times one. Considering that ABG I cut down her FiO2 down to 40%, and I discontinued Dobutrex and kept her on norepinephrine for low blood pressure titrating to a mean of 60. Patient is also on propofol at 35 mcg/kg/m, however I plan to gradually transition the patient to Precedex, hoping to extubate the patient sometime today. Once the patient is awake and appropriate, she will be given a trial of pressure support of 8 and CPAP, and if tolerated will proceed to extubating the patient. Patient is to also be seen by c ardiology for her multiple cardiac issues including severe aortic stenosis. And chronic atrial fibrillation presently she is in sinus rhythm Reevaluated today on 07/25/20, patient was extubated yesterday, and she tolerated the extubation quite well over the last 24 hours. Remains in the ICU. Blood pressure seems to be stable, off levo fed since 7 AM this morning. She is in atrial fibrillation with a rate of 112. She is on 3 L nasal cannula with O2 saturation of 96%. She had intermittent episodes of confusion last night. And she was placed on Lasix 40 mg twice a day, she had a -474 that fluid balance in the last 24 hours. Chest x-ray continues to show mild interstitial edema, creatinine is up to 1.5. And on physical examination has crackles at the bases, and mild bipedal edema. Considering her renal functioning is slightly worse, we'll keep the diuretics and will cut down the Lasix to once daily instead of twice a day. And the patient will be given Lovenox 30 mg subcu daily for DVT prophylaxis. Not to mention the patient is in atrial fibrillation, however cardiology is a bit reluctant to restart Eliquis at this point. Patient was reevaluated today on 07/26/20, tolerated extubation for the last 48 hours, however she remains in the ICU, presently on 2 L nasal cannula, relatively asymptomatic. She is in atrial fibrillation with controlled rate. She has been off norepinephrine for the last 24 hours. She did receive 2 units of packed RBCs for low hemoglobin, hemoglobin today is 7.4, and this is mostly secondary to surgical blood loss unless proven otherwise. Chest x-ray today continues to show mild interstitial edema, and suspect some underlying interstitial lung disease/pulmonary fibrosis. Again the patient is hemodynamically stable, and I plan to consider transferring the patient out of the ICU in the next 24 hours. Reevaluated today on 07/27/20, patient remains in the ICU, off pressors, off inotropes, chest x-ray continues to show mild interstitial edema, patient remains on Lasix at 40 mg by mouth twice a day, she seems to be in no distress, she is comfortable, on few liters nasal cannula. Remains in atrial fibrillation, however her rate controlled. CBC is relatively normal, hemoglobin is 8.8. Electrolytes are normal BUN is 48 creatinine is 1.50. Patient is more oriented and mentation has significantly improved over the last couple of days. On 07/28/2020 patient seen in follow-up on selective care unit, she is awake and alert, resting comfortably in bed, she is on 2 L of oxygen a pulse ox of 95%, denies any worsening dyspnea, denies any chest pain, her last chest x-ray from yesterday shows improving CHF with pulmonary vascular congestion remaining, trace pleural effusion with adjacent atelectasis, improving. Patient is on oral Lasix, she is on empiric antibiotics, she is in atrial fibrillation, she is on oral anticoagulation, and oral Cardizem for rate control, cardiology is following. This had no acute events overnight. Today's lab 7 reviewed showing no leukocytosis, electrolytes are relatively unremarkable, BUN is 54 and creatinine is 1.51. Urine culture showed gram-negative bacilli, fungal cultures pending, patient is on Levaquin for empiric antibiotic coverage. Objective - Vital Signs Vital signs: Vital Signs Temp 97.6 F 07/28/20 02:40 Pulse 120 H 07/28/20 12:00 Resp 16 07/28/20 12:00 BP 116/72 07/28/20 12:00 Pulse Ox 95 07/28/20 12:00 Intake & Output 07/27/20 07/28/20 07/28/20 18:59 06:59 18:59 Intake Total 160 100 480 Output Total 1110 1300 350 Balance -950 -1200 130 Weight 92.5 kg 92.5 kg Intake: IV 160 Sodium Chloride 0.9% 1, 160 000 ml @ 20 mls/hr IV . Q24H [facility] Rx#:[id number] Intake, IV Titration 100 Amount Levofloxacin 250Mg-D5w 100 Pmx 250 mg In Dextrose/ Water 1 50ml.bag @ 50 mls /hr IVPB Q24H [facility] Rx#: [id number] Oral 480 Output: Urine 1110 1300 350 Other: Voiding Method Indwelling Catheter Indwelling Catheter Indwelling Catheter # Voids 1 # Bowel Movements 1 ABP, PAP, CO, CI - Last Documented Arterial Blood Pressure 139/55 - Exam GENERAL EXAM: Alert, very pleasant, 84-year-old white female, on 2 L of oxygen 95% comfortable in no apparent distress. HEAD: Normocephalic/atraumatic. EYES: Normal reaction of pupils, equal size. Conjunctiva pink, sclera white. NOSE: Clear with pink turbinates. THROAT: No erythema or exudates. NECK: No masses, no JVD, no thyroid enlargement, no adenopathy. CHEST: No chest wall deformity. Symmetrical expansion. LUNGS: Equal air entry with no crackles, wheeze, rhonchi or dullness. CVS: Irregular rate and rhythm, normal S1 and S2, no gallops, no murmurs, no rubs ABDOMEN: Soft, nontender. No hepatosplenomegaly, normal bowel sounds, no guarding or rigidity. EXTREMITIES: No clubbing, 1+ pitting edema, no cyanosis, 2+ pulses and upper and lower extremities. MUSCULOSKELETAL: Muscle strength and tone normal. SPINE: No scoliosis or deformity SKIN: No rashes CENTRAL NERVOUS SYSTEM: Alert and oriented -3. No focal deficits, tone is normal in all 4 extremities. PSYCHIATRIC: Alert and oriented -3. Appropriate affect. Intact judgment and insight. - Labs CBC & Chem 7: 07/27/20 04:21 07/28/20 09:10 Labs: Abnormal Lab Results - Last 24 Hours (Table) 07/27/20 07/27/20 07/28/20 Range/Units 17:19 20:20 06:03 Sodium (137-145) mmol/L Carbon Dioxide (22-30) mmol/L BUN (7-17) mg/dL Creatinine (0.52-1.04) mg/dL Glucose (74-99) mg/dL POC Glucose (mg/dL) 165 H 281 H 148 H (75-99) mg/dL Calcium (8.4-10.2) mg/dL 07/28/20 07/28/20 Range/Units 09:10 11:49 Sodium 135 L (137-145) mmol/L Carbon Dioxide 20 L (22-30) mmol/L BUN 54 H (7-17) mg/dL Creatinine 1.51 H (0.52-1.04) mg/dL Glucose 180 H (74-99) mg/dL POC Glucose (mg/dL) 194 H (75-99) mg/dL Calcium 8.0 L (8.4-10.2) mg/dL Microbiology - Last 24 Hours (Table) 07/26/20 18:46 Urine Culture - Preliminary Urine,Catheterized Gram Neg Bacilli Assessment and Plan Plan: Assessment: #1. Acute hypercapnic respiratory failure related to acute exacerbation of CHF, chest x-ray showing findings consistent with pulmonary edema, and hypoventilation related to operative sedation. Patient was reintubated in the PACU and transferred to the ICU. Patient was successfully weaned and extubated from the mechanical ventilator, tolerating extubation quite well so far, remains on diuretics, chest x-ray shows improving CHF #2. Acute metabolic acidosis, non-anion gap #3. Right hip subtrochanteric fracture, closed, displaced, comminuted, status post closed reduction and IM and of the right hip, postoperative day 5 #4. History of TAVR in 2017 her history of severe aortic stenosis #5. History of coronary artery disease with previous stenting #6. History of hypertension #7. Paroxysmal atrial fibrillation currently in sinus mechanism #8. Diabetes mellitus type 2 #9. Osteoarthritis #10. Macular degeneration #11. History of chronic kidney disease, specifically #12. 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 I reviewed the nurse practitioner's note and agree with the documented findings and plan of care. Lung sounds are positive for diminished breath sounds. The findings and the impression was discussed with the patient. I attest to the documentation by the nurse practitioner. Time with Patient: Less than 30
[2020-07-28 17:06] LABS: Glucose,Whole Blood 229 mg/dL (75-99)
[2020-07-28] MEDS: AMIODARONE 300 MG in DEXTROSE 5% IN WATER 250 ML IV SCH ×4 (17:52→22:39)
[2020-07-28] MEDS: traMADol 50 MG TAB PO SCH ×2 (18:00→20:02)
[2020-07-28] MEDS: DILTIAZEM ORAL 60 MG TAB PO SCH (20:00)
[2020-07-28] MEDS: LEVOFLOXACIN 250 MG TAB PO SCH (20:01)
[2020-07-28] MEDS: SODIUM CHLORIDE 0.9% 1,000 ML IV SCH ×2 (20:01→22:40)
[2020-07-28 20:58] LABS: Glucose,Whole Blood >600 mg/dL (75-99)
[2020-07-28 20:59] LABS: Glucose,Whole Blood 596 mg/dL (75-99)
[2020-07-28 21:03] LABS: Glucose,Whole Blood 184 mg/dL (75-99)
[2020-07-29 06:24] LABS: Glucose,Whole Blood 191 mg/dL (75-99)
[2020-07-29] MEDS: INSULIN ASPART (NovoLOG) 100 UNIT/ML VIAL SQ SCH ×4 (06:35→20:23)
--- NOTE | 2020-07-29 08:04 | P.PN ---
Subjective Principal diagnosis: Still with tachycardia This is a continuing progress note an 84-year-old white female who is postop day #7 for hip fracture/arthroplasty but has had somewhat of a kvng course postoperatively. She continues to have tachycardia which developed postoperatively. The patient is lucid and feels much better. Heart rate was sleeping seems to be nominal but when she wakes up hovers around 110 BPM. Objective - Vital Signs Vital signs: Vital Signs Temp 97.6 F 07/29/20 03:08 Pulse 65 07/29/20 03:08 Resp 16 07/29/20 03:08 BP 113/60 07/29/20 03:08 Pulse Ox 94 L 07/29/20 03:08 Intake & Output 07/28/20 07/29/20 07/29/20 18:59 06:59 18:59 Intake Total 720 150 Output Total 700 800 Balance 20 -650 Weight 92.5 kg 81.5 kg Intake: Intake, IV Titration 150 Amount Amiodarone 300 mg In 150 Dextrose 5% in Water 250 ml @ 0.5 MG/MIN 25 mls/hr IV .Q10H [facility] Rx#: [id number] Oral 720 Output: Urine 700 800 Other: Voiding Method Indwelling Catheter Indwelling Catheter ABP, PAP, CO, CI - Last Documented Arterial Blood Pressure 139/55 - Constitutional General appearance: Present: average body habitus - EENT Eyes: Absent: abnormal pupil - Cardiovascular Heart rate: 110 Rhythm: irregularly irregular Heart sounds: normal: S1, S2 Abnormal Heart Sounds: Absent: S3 Gallop - Gastrointestinal General gastrointestinal: Present: soft. Absent: tenderness - Neurologic Neurologic: Absent: CNII-XII intact - Psychiatric Psychiatric: Present: appropriate affect - Labs CBC & Chem 7: 07/27/20 04:21 07/28/20 09:10 Labs: Abnormal Lab Results - Last 24 Hours (Table) 07/28/20 07/28/20 07/28/20 Range/Units 09:10 11:49 16:44 Sodium 135 L (137-145) mmol/L Carbon Dioxide 20 L (22-30) mmol/L BUN 54 H (7-17) mg/dL Creatinine 1.51 H (0.52-1.04) mg/dL Glucose 180 H (74-99) mg/dL POC Glucose (mg/dL) 194 H 229 H (75-99) mg/dL Calcium 8.0 L (8.4-10.2) mg/dL 07/28/20 07/28/20 07/28/20 Range/Units 20:56 20:57 21:01 Sodium (137-145) mmol/L Carbon Dioxide (22-30) mmol/L BUN (7-17) mg/dL Creatinine (0.52-1.04) mg/dL Glucose (74-99) mg/dL POC Glucose (mg/dL) >600 H 596 H 184 H (75-99) mg/dL Calcium (8.4-10.2) mg/dL 07/29/20 Range/Units 06:22 Sodium (137-145) mmol/L Carbon Dioxide (22-30) mmol/L BUN (7-17) mg/dL Creatinine (0.52-1.04) mg/dL Glucose (74-99) mg/dL POC Glucose (mg/dL) 191 H (75-99) mg/dL Calcium (8.4-10.2) mg/dL Microbiology - Last 24 Hours (Table) 07/26/20 18:46 Urine Culture - Final Urine,Catheterized Proteus mirabilis Assessment and Plan (1) Hip fracture Current Visit: Yes Status: Acute Code(s): S72.009A - FRACTURE OF UNSP PART OF NECK OF UNSP FEMUR, INIT SNOMED Code(s): 464670508 (2) Atrial fibrillation with RVR Current Visit: No Status: Acute Code(s): I48.91 - UNSPECIFIED ATRIAL FIBRILLATION SNOMED Code(s): 739020344900601 (3) History of atrial fibrillation Current Visit: No Status: Chronic Code(s): Z86.79 - PERSONAL HISTORY OF OTHER DISEASES OF THE CIRCULATORY SYSTEM SNOMED Code(s): 258690865 (4) History of hyperlipidemia Current Visit: No Status: Chronic Code(s): Z86.39 - PERSONAL HISTORY OF ENDO, NUTRITIONAL AND METABOLIC DISEASE SNOMED Code(s): 745973864 (5) History of hypertension Current Visit: No Status: Chronic Code(s): Z86.79 - PERSONAL HISTORY OF OTHER DISEASES OF THE CIRCULATORY SYSTEM SNOMED Code(s): 077431507 Plan: Improvement from a respiratory perspective. Still tachycardic. Appreciate cardiology input. Continue amiodarone and Cardizem. Increase ambulation per orthopedics. She seems more stable from a hemodynamic standpoint Check CBC and CMP in a.m.
[2020-07-29] MEDS: APIXABAN 2.5 MG TABLET PO SCH ×2 (08:45→20:22)
[2020-07-29] MEDS: MAGNESIUM OXIDE 400 MG TAB PO SCH (08:45)
[2020-07-29] MEDS: traMADol 50 MG TAB PO SCH ×4 (08:45→22:46)
[2020-07-29] MEDS: METOPROLOL SUCCINATE (ER) 100 MG TAB.ER.24H PO SCH (08:46)
[2020-07-29] MEDS: MULTIVITAMINS, THERA 1 EACH TAB PO SCH (08:46)
[2020-07-29] MEDS: POTASSIUM CHLORIDE ER 10 MEQ TAB.ER.PRT PO SCH (08:46)
[2020-07-29] MEDS: ATORVASTATIN 10 MG TAB PO SCH (08:46)
[2020-07-29] MEDS: DOCUSATE 100 MG CAP PO SCH (08:47)
[2020-07-29] MEDS: ASCORBIC ACID 500 MG TAB PO SCH (08:47)
[2020-07-29] MEDS: allopurinoL 100 MG TAB PO SCH (08:47)
[2020-07-29] MEDS: FUROSEMIDE 40 MG TAB PO SCH ×2 (08:47→17:11)
[2020-07-29] MEDS: FAMOTIDINE 20 MG TAB PO SCH (08:47)
[2020-07-29] MEDS: DILTIAZEM ORAL 60 MG TAB PO SCH ×3 (08:47→22:45)
[2020-07-29] MEDS: METOPROLOL TARTRATE 25 MG TAB PO SCH ×2 (11:02→20:22)
[2020-07-29 12:07] LABS: Glucose,Whole Blood 178 mg/dL (75-99)
--- NOTE | 2020-07-29 12:28 | P.PN ---
Subjective this is a pleasant 84-year-old female past medical history significant for paroxysmal atrial fibrillation on Eliquis, dyslipidemia, peripheral vascular disease with prior iliofemoral bypass December 2017, aortic stenosis status post TAVR December 2017, mild nonobstructive coronary artery disease and chronic kidney disease. She follows in the office with Dr. Seth. She is seen and examined sitting up in bed in no acute distress. She is in atrial fibrillation with variable rates despite amiodarone bolus given yesterday. She denies feeling palpitations. Breathing is stable and she has no chest pain. Blood pressure 125/65 heart rate 116. GENERAL: Maintained on mechanical ventilation. NECK: Supple without JVD or thyromegaly. LUNGS: Clear to auscultation. No wheezes, rales or rhonchi. HEART: Irregular rate and rhythm with systolic ejection murmur at the base, no rubs or gallops. S1 and S2 heard. EXTREMITIES: Normal range of motion, no edema. No clubbing or cyanosis. Peripheral pulses intact. ASSESSMENT Fall Right femur fracture status post surgical repair, postoperative day #2 Acute hypercapnic respiratory failure Acute diastolic heart failure Troponin elevation secondary to oxygen supply demand mismatch, type II myocardi al infarction Paroxysmal atrial fibrillation on eliquis, currently maintaining sinus mechanism Valvular heart disease status post TAVR Peripheral vascular disease status post iliofemoral bypass Hypertension Dyslipidemia Diabetes mellitus Nonobstructive coronary artery disease, per catheterization December 2017 PLAN Increase cardizem to 120 mg TID and change lopressor to 75 mg TID for better rate control. Further recommendations to follow based on clinical course. Nurse Practitioner note has been reviewed, I agree with a documented findings and plan of care. Patient was seen and examined. Objective - Vital Signs Vital signs: Vital Signs Temp 96.9 F L 07/29/20 11:55 Pulse 103 H 07/29/20 11:55 Resp 20 07/29/20 11:55 BP 125/65 07/29/20 11:55 Pulse Ox 95 07/29/20 11:55 Intake & Output 07/28/20 07/29/20 07/29/20 18:59 06:59 18:59 Intake Total 720 150 236 Output Total 700 800 Balance 20 -650 236 Weight 92.5 kg 81.5 kg Intake: Intake, IV Titration 150 Amount Amiodarone 300 mg In 150 Dextrose 5% in Water 250 ml @ 0.5 MG/MIN 25 mls/hr IV .Q10H [facility] Rx#: [id number] Oral 720 236 Output: Urine 700 800 Other: Voiding Method Indwelling Catheter Indwelling Catheter Indwelling Catheter ABP, PAP, CO, CI - Last Documented Arterial Blood Pressure 139/55 - Labs CBC & Chem 7: 07/27/20 04:21 07/28/20 09:10 Labs: Abnormal Lab Results - Last 24 Hours (Table) 07/28/20 07/28/20 07/28/20 Range/Units 16:44 20:56 20:57 POC Glucose (mg/dL) 229 H >600 H 596 H (75-99) mg/dL 07/28/20 07/29/20 07/29/20 Range/Units 21:01 06:22 12:03 POC Glucose (mg/dL) 184 H 191 H 178 H (75-99) mg/dL Microbiology - Last 24 Hours (Table) 07/26/20 18:46 Urine Culture - Final Urine,Catheterized Proteus mirabilis
[2020-07-29] MEDS: VITAMIN E (DL,TOCOPHERYL ACET) 400 UNIT CAP PO SCH (12:35)
[2020-07-29] MEDS: CHOLECALCIFEROL 400 UNIT TAB PO SCH (12:35)
--- NOTE | 2020-07-29 15:51 | PN ---
PROGRESS NOTE PULMONARY/CRITICAL CARE PROGRESS NOTE: DATE OF SERVICE: 07/29/2020 This is a patient who was again seen. The patient was seen in her room, which was room 374. She seems to be doing relatively well. She is on oxygen at 2 L. Saturations are in the mid to high 90s. She denies any chest pain or shortness of breath. Overall, chest x-ray seems to be showing improvement of underlying pulmonary edema/CHF. Anyway, the patient is doing much better. Currently she is in atrial fibrillation. She is on oral anticoagulation and oral Cardizem for rate and rhythm control. She has no major complaints today. All in all, doing very well. PHYSICAL EXAMINATION: VITAL SIGNS: Current vital signs include temperature 96.9, heart rate 100, respiratory rate 20, blood pressure 125/65, mean 85, two-liter saturation 95%. GENERAL APPEARANCE: Appears in no acute distress. HEENT: Examination is grossly unremarkable. NECK: Supple. Full range of motion. No adenopathy. Neck veins are flat. CARDIOVASCULAR: Examination reveals regular rhythm and rate. Heart rate about 100 beats per minute. S1, S2 normal. LUNGS: Lungs reveal some mild bibasilar crackles. No wheezes. A few scattered rhonchi. ABDOMEN: Soft. Bowel sounds are heard. EXTREMITIES: Intact. No cyanosis, clubbing or edema. SKIN: Without rash. NEUROLOGIC: Neurologic examination is brief but nonfocal. LABS: Reviewed. Glucose 178. Microbiology showing Proteus mirabilis in the urine from 07/26/2020. No recent chest x-ray to report. The last chest x-ray was done on 07/27/2020. MEDICATIONS: Medications are reviewed. Currently she is on Levaquin for her Proteus UTI. ASSESSMENT: 1. Acute hypercapnic respiratory failure secondary to congestive heart failure exacerbation, requiring reintubation and subsequent successful extubation from mechanical ventilator. 2. Acute metabolic acidosis, non-anion gap, resolved. 3. Right hip fracture, postoperative day number 6, status post closed reduction. 4. History of transcatheter aortic valve replacement in 2017 secondary to severe aortic stenosis. 5. Coronary artery disease with previous stenting. 6. History of hypertension. 7. Paroxysmal atrial fibrillation. 8. Diabetes mellitus. 9. Osteoarthritis. 10.Macular degeneration. 11.History of chronic kidney disease. 12.History of previous heavy tobacco use. PLAN: Currently the patient is doing well. She is in sinus rhythm. Rate is about 100 beats per minute. Her respiratory status is stable. On 2 liters she is 95% to 96%. She has no major complaints. Chest x-ray is improved. Will continue to follow. Prognosis is guarded. MMODL / IJN: [id number] /
[2020-07-29 17:20] LABS: Glucose,Whole Blood 186 mg/dL (75-99)
[2020-07-29 20:14] LABS: Glucose,Whole Blood 139 mg/dL (75-99)
[2020-07-29] MEDS: LEVOFLOXACIN 250 MG TAB PO SCH (20:22)
[2020-07-30 06:13] LABS: Glucose,Whole Blood 137 mg/dL (75-99)
[2020-07-30] MEDS: INSULIN ASPART (NovoLOG) 100 UNIT/ML VIAL SQ SCH ×2 (06:20→12:40)
[2020-07-30 07:41] LABS: HCT 28.4 % (34.0-46.0); HGB 9.1 gm/dL (11.4-16.0); Hypochromasia Slight; MCH 31.7 pg (25.0-35.0); MCV 99.2 fL (80.0-100.0); Macrocytosis Slight; Mean Platelet Volume 8.4; Platelet Count 232 k/uL (150-450); RBC 2.86 m/uL (3.80-5.40); RDW 15.9 % (11.5-15.5); WBC 7.5 k/uL (3.8-10.6)
[2020-07-30 08:07] LABS: Albumin 2.7 g/dL (3.5-5.0); Calcium 8.2 mg/dL (8.4-10.2); Total Protein 5.2 g/dL (6.3-8.2)
--- NOTE | 2020-07-30 08:22 | P.PN ---
Progress Note - Text Progress Note Date: 07/30/20 Patient seen and examined this morning with nursing on medicine at bedside. The patient seems to be doing very well her pain is controlled she was up to chair yesterday with likely max assist however she did well with this. She states pain with movement of her hip however it is tolerable. She denies fevers chills shortness breath or chest pain. Vital signs stable Alert and oriented 3 appears well-nourished well-hydrated and is no acute distress 5/5 dorsiflexion plantar flexion EHL and FHL bilateral lower extremities 5/5 strength in all major muscle groups of upper extremities bilaterally. Incisions are clean dry and intact Compartments are soft and compressible Distal pulses are palpable Sensation is intact to light touch in the L2 to S1 nerve distribution Assessment 84-year-old female status post right hip fracture with intramedullary nail fixation Plan Medical management Follow-up in office in 2 weeks
[2020-07-30] MEDS: CHOLECALCIFEROL 400 UNIT TAB PO SCH (08:57)
[2020-07-30] MEDS: VITAMIN E (DL,TOCOPHERYL ACET) 400 UNIT CAP PO SCH (08:57)
[2020-07-30] MEDS: allopurinoL 100 MG TAB PO SCH (08:58)
[2020-07-30] MEDS: ATORVASTATIN 10 MG TAB PO SCH (08:59)
[2020-07-30] MEDS: traMADol 50 MG TAB PO SCH ×2 (08:59→12:40)
[2020-07-30] MEDS: APIXABAN 2.5 MG TABLET PO SCH (08:59)
[2020-07-30] MEDS: MULTIVITAMINS, THERA 1 EACH TAB PO SCH (08:59)
[2020-07-30] MEDS: ASCORBIC ACID 500 MG TAB PO SCH (08:59)
[2020-07-30] MEDS: FAMOTIDINE 20 MG TAB PO SCH (08:59)
[2020-07-30] MEDS ORDERED: DILTIAZEM ORAL 30 MG TAB PO SCH (09:00)
[2020-07-30] MEDS: MAGNESIUM OXIDE 400 MG TAB PO SCH (09:00)
[2020-07-30] MEDS: POTASSIUM CHLORIDE ER 10 MEQ TAB.ER.PRT PO SCH (09:00)
[2020-07-30] MEDS: DOCUSATE 100 MG CAP PO SCH (09:00)
[2020-07-30] MEDS: METOPROLOL TARTRATE 25 MG TAB PO SCH (09:00)
[2020-07-30] MEDS: FUROSEMIDE 40 MG TAB PO SCH (09:00)
[2020-07-30 09:56] VITALS: RESP 20
--- NOTE | 2020-07-30 11:11 | P.PN ---
Subjective this is a pleasant 84-year-old female past medical history significant for paroxysmal atrial fibrillation on Eliquis, dyslipidemia, peripheral vascular disease with prior iliofemoral bypass December 2017, aortic stenosis status post TAVR December 2017, mild nonobstructive coronary artery disease and chronic kidney disease. She follows in the office with Dr. Seth. She is seen and examined sitting up in bed in no acute distress. She is in atrial fibrillation with controlled ventricular rates. Blood pressure 124/79. She denies symptoms of chest pain, shortness of breath, dizziness or palpitations. GENERAL: Maintained on mechanical ventilation. NECK: Supple without JVD or thyromegaly. LUNGS: Clear to auscultation. No wheezes, rales or rhonchi. HEART: Irregular rate and rhythm with systolic ejection murmur at the base, no rubs or gallops. S1 and S2 heard. EXTREMITIES: Normal range of motion, no edema. No clubbing or cyanosis. Peripheral pulses intact. ASSESSMENT Fall Right femur fracture status post surgical repair, postoperative day #2 Acute hypercapnic respiratory failure Acute diastolic heart failure Troponin elevation secondary to oxygen supply demand mismatch, type II myocardial infarction Paroxysmal atrial fibrillation on eliquis, currently maintaining sinus mechanism Valvular heart disease status post TAVR Peripheral vascular disease status post iliofemoral bypass Hypertension Dyslipidemia Diabetes mellitus Nonobstructive coronary artery disease, per catheterization December 2017 PLAN Decrease Cardizem to 90 mg 3 times a day continue Lopressor 75 mg twice a day. She is stable for discharge to [facility] from a cardiac perspective. Close follow-up with Dr. Seth in the outpatient setting. Nurse Practitioner note has been reviewed, I agree with a documented findings and plan of care. Patient was seen and examined. Objective - Vital Signs Vital signs: Vital Signs Temp 97.9 F 07/30/20 08:00 Pulse 104 H 07/30/20 08:00 Resp 20 07/30/20 08:00 BP 124/79 07/30/20 08:00 Pulse Ox 96 07/30/20 08:00 Intake & Output 07/29/20 07/30/20 07/30/20 18:59 06:59 18:59 Intake Total 416 Output Total 1000 400 Balance -584 -400 Weight 81 kg Intake: Oral 416 Output: Urine 1000 400 Other: Voiding Method Indwelling Catheter Indwelling Catheter Indwelling Catheter # Voids 0 ABP, PAP, CO, CI - Last Documented Arterial Blood Pressure 139/55 - Labs CBC & Chem 7: 07/30/20 07:16 07/30/20 07:16 Labs: Abnormal Lab Results - Last 24 Hours (Table) 07/29/20 07/29/20 07/29/20 Range/Units 12:03 16:59 20:13 RBC (3.80-5.40) m/uL Hgb (11.4-16.0) gm/dL Hct (34.0-46.0) % RDW (11.5-15.5) % Sodium (137-145) mmol/L BUN (7-17) mg/dL Creatinine (0.52-1.04) mg/dL Glucose (74-99) mg/dL POC Glucose (mg/dL) 178 H 186 H 139 H (75-99) mg/dL Calcium (8.4-10.2) mg/dL Total Protein (6.3-8.2) g/dL Albumin (3.5-5.0) g/dL 07/30/20 07/30/20 07/30/20 Range/Units 06:12 07:16 07:16 RBC 2.86 L (3.80-5.40) m/uL Hgb 9.1 L (11.4-16.0) gm/dL Hct 28.4 L (34.0-46.0) % RDW 15.9 H (11.5-15.5) % Sodium 132 L (137-145) mmol/L BUN 60 H (7-17) mg/dL Creatinine 1.73 H (0.52-1.04) mg/dL Glucose 106 H (74-99) mg/dL POC Glucose (mg/dL) 137 H (75-99) mg/dL Calcium 8.2 L (8.4-10.2) mg/dL Total Protein 5.2 L (6.3-8.2) g/dL Albumin 2.7 L (3.5-5.0) g/dL
[2020-07-30 11:48] VITALS: BP 124/70; PULSE 107; TEMP 97.8
[2020-07-30 12:00] LABS: Glucose,Whole Blood 171 mg/dL (75-99)
[2020-07-30] MEDS: SODIUM CHLORIDE 0.9% 1,000 ML IV SCH (13:17)
--- NOTE | 2020-07-30 14:18 | P.PN ---
Subjective Progress Note Date: 07/30/20 Principal diagnosis: Postoperative hypercapnic respiratory failure, unexpected, requiring reintubation post hip surgery 84-year-old white female patient that came into the hospital on 07/21/2020 following a fall out of her chair landing on her right hip and sustaining a right hip fracture. X-ray of the right hip and AP pelvis showed acute intertrochanteric fracture of the right femur. Moderate osteoarthritis in the hip joints. Brain CT showed mild cerebral atrophy, with minimal chronic small vessel ischemia no acute intracranial abnormality. Chest x-ray on admission sh owed pulmonary interstitial density consistent with pulmonary fibrosis, mild heart failure could not be excluded. Past medical history is significant for coronary artery disease, diabetes type II, hypertension, hyperlipidemia, osteoarthritis, history of Her on 01/03/2018, previous cardiac stent placements, patient is a former smoker. In preop. Patient was seen by cardiology and cleared for surgery. She has had no recent history of chest discomfort or shortness of breath. On 07/23/2020 patient underwent closed reduction and IMN of the right hip by Dr. Betts. Following surgery patient was extubated in the recovery, however she remains very obtunded, she was placed on BiPAP support, and we were urgently consulted for ICU placement. In view of her ongoing decreased level of consciousness, we recommended the reintubation and placement in the intensive care unit. Patient is seen in intensive care unit, she is on assist-control mode of ventilation with a rate of 16, tidal volume 450, FiO2 is 80% and PEEP of 5, blood gas was obtained showing pO2 of 78, pCO2 51, and pH of 7.18. Amp bicarb was given. Patient had a right IJ triple lumen catheter placed, and right radial art line placed. She was given a liter bolus. She is in sinus mechanism, she did have an episode of transient hypotension for which fluid bolus was given, however as she started to wake up she is actually becoming hypertensive and she will be placed on sedation. Chest x-ray was obtained showing interstitial prominence and possibility of mild heart failure. We'll give the patient a dose of Lasix as well. No fever. Patient was reevaluated today on 07/24/20, patient remains on mechanical ventilation, her ventilator settings are assist control rate of 2010 volume is 450 FiO2 50% PEEP of 5. ABG showed a pO2 of 159 pCO2 of 36 pH of 7.3. Hemoglobin is 7.0, and she is to receive 1 unit of packed RBCs today. Urine output remains marginal. Blood pressure is marginal. Patient was on Dobutrex overnight, today I have recommended stopping the the V. tach, and I recommended norepinephrine. Patient was given Lasix last night, and this morning she received 40 mg IV push times one. Considering that ABG I cut down her FiO2 down to 40%, and I discontinued Dobutrex and kept her on norepinephrine for low blood pressure titrating to a mean of 60. Patient is also on propofol at 35 mcg/kg/m, however I plan to gradually transition the patient to Precedex, hoping to extubate the patient sometime today. Once the patient is awake and appropriate, she will be given a trial of pressure support of 8 and CPAP, and if tolerated will proceed to extubating the patient. Patient is to also be seen by c ardiology for her multiple cardiac issues including severe aortic stenosis. And chronic atrial fibrillation presently she is in sinus rhythm Reevaluated today on 07/25/20, patient was extubated yesterday, and she tolerated the extubation quite well over the last 24 hours. Remains in the ICU. Blood pressure seems to be stable, off levo fed since 7 AM this morning. She is in atrial fibrillation with a rate of 112. She is on 3 L nasal cannula with O2 saturation of 96%. She had intermittent episodes of confusion last night. And she was placed on Lasix 40 mg twice a day, she had a -474 that fluid balance in the last 24 hours. Chest x-ray continues to show mild interstitial edema, creatinine is up to 1.5. And on physical examination has crackles at the bases, and mild bipedal edema. Considering her renal functioning is slightly worse, we'll keep the diuretics and will cut down the Lasix to once daily instead of twice a day. And the patient will be given Lovenox 30 mg subcu daily for DVT prophylaxis. Not to mention the patient is in atrial fibrillation, however cardiology is a bit reluctant to restart Eliquis at this point. Patient was reevaluated today on 07/26/20, tolerated extubation for the last 48 hours, however she remains in the ICU, presently on 2 L nasal cannula, relatively asymptomatic. She is in atrial fibrillation with controlled rate. She has been off norepinephrine for the last 24 hours. She did receive 2 units of packed RBCs for low hemoglobin, hemoglobin today is 7.4, and this is mostly secondary to surgical blood loss unless proven otherwise. Chest x-ray today continues to show mild interstitial edema, and suspect some underlying interstitial lung disease/pulmonary fibrosis. Again the patient is hemodynamically stable, and I plan to consider transferring the patient out of the ICU in the next 24 hours. Reevaluated today on 07/27/20, patient remains in the ICU, off pressors, off inotropes, chest x-ray continues to show mild interstitial edema, patient remains on Lasix at 40 mg by mouth twice a day, she seems to be in no distress, she is comfortable, on few liters nasal cannula. Remains in atrial fibrillation, however her rate controlled. CBC is relatively normal, hemoglobin is 8.8. Electrolytes are normal BUN is 48 creatinine is 1.50. Patient is more oriented and mentation has significantly improved over the last couple of days. On 07/28/2020 patient seen in follow-up on selective care unit, she is awake and alert, resting comfortably in bed, she is on 2 L of oxygen a pulse ox of 95%, denies any worsening dyspnea, denies any chest pain, her last chest x-ray from yesterday shows improving CHF with pulmonary vascular congestion remaining, trace pleural effusion with adjacent atelectasis, improving. Patient is on oral Lasix, she is on empiric antibiotics, she is in atrial fibrillation, she is on oral anticoagulation, and oral Cardizem for rate control, cardiology is following. This had no acute events overnight. Today's lab 7 reviewed showing no leukocytosis, electrolytes are relatively unremarkable, BUN is 54 and creatinine is 1.51. Urine culture showed gram-negative bacilli, fungal cultures pending, patient is on Levaquin for empiric antibiotic coverage. On 07/30/2020 patient seen in follow-up on selective care unit, she is sitting up in the chair, in no acute distress, she had 2 L of oxygen per pulse ox 96%, she is afebrile, hemodynamically stable, breathing comfortably. She remains on oral diuretics, she is on Eliquis for anticoagulation, oral Cardizem for rate control, she continues on Levaquin for evidence of Proteus mirabilis in her urine. Her vitals have been stable. She has had no acute issues overnight, she's been afebrile. Patient is working with therapy. Denies any pain or disco mfort. Objective - Vital Signs Vital signs: Vital Signs Temp 97.8 F 07/30/20 11:47 Pulse 107 H 07/30/20 11:47 Resp 20 07/30/20 11:47 BP 124/70 07/30/20 11:47 Pulse Ox 96 07/30/20 11:47 Intake & Output 07/29/20 07/30/20 07/30/20 18:59 06:59 18:59 Intake Total 416 Output Total 1000 400 Balance -584 -400 Weight 81 kg Intake: Oral 416 Output: Urine 1000 400 Other: Voiding Method Indwelling Catheter Indwelling Catheter Indwelling Catheter # Voids 0 ABP, PAP, CO, CI - Last Documented Arterial Blood Pressure 139/55 - Exam GENERAL EXAM: Alert, very pleasant, 84-year-old white female, on 2 L of oxygen 95% comfortable in no apparent distress. HEAD: Normocephalic/atraumatic. EYES: Normal reaction of pupils, equal size. Conjunctiva pink, sclera white. NOSE: Clear with pink turbinates. THROAT: No erythema or exudates. NECK: No masses, no JVD, no thyroid enlargement, no adenopathy. CHEST: No chest wall deformity. Symmetrical expansion. LUNGS: Equal air entry with no crackles, wheeze, rhonchi or dullness. CVS: Irregular rate and rhythm, normal S1 and S2, no gallops, no murmurs, no rubs ABDOMEN: Soft, nontender. No hepatosplenomegaly, normal bowel sounds, no guarding or rigidity. EXTREMITIES: No clubbing, 1+ pitting edema, no cyanosis, 2+ pulses and upper and lower extremities. MUSCULOSKELETAL: Muscle strength and tone normal. SPINE: No scoliosis or deformity SKIN: No rashes CENTRAL NERVOUS SYSTEM: Alert and oriented -3. No focal deficits, tone is normal in all 4 extremities. PSYCHIATRIC: Alert and oriented -3. Appropriate affect. Intact judgment and insight. - Labs CBC & Chem 7: 07/30/20 07:16 07/30/20 07:16 Labs: Abnormal Lab Results - Last 24 Hours (Table) 07/29/20 07/29/20 07/30/20 Range/Units 16:59 20:13 06:12 RBC (3.80-5.40) m/uL Hgb (11.4-16.0) gm/dL Hct (34.0-46.0) % RDW (11.5-15.5) % Sodium (137-145) mmol/L BUN (7-17) mg/dL Creatinine (0.52-1.04) mg/dL Glucose (74-99) mg/dL POC Glucose (mg/dL) 186 H 139 H 137 H (75-99) mg/dL Calcium (8.4-10.2) mg/dL Total Protein (6.3-8.2) g/dL Albumin (3.5-5.0) g/dL 07/30/20 07/30/20 07/30/20 Range/Units 07:16 07:16 11:59 RBC 2.86 L (3.80-5.40) m/uL Hgb 9.1 L (11.4-16.0) gm/dL Hct 28.4 L (34.0-46.0) % RDW 15.9 H (11.5-15.5) % Sodium 132 L (137-145) mmol/L BUN 60 H (7-17) mg/dL Creatinine 1.73 H (0.52-1.04) mg/dL Glucose 106 H (74-99) mg/dL POC Glucose (mg/dL) 171 H (75-99) mg/dL Calcium 8.2 L (8.4-10.2) mg/dL Total Protein 5.2 L (6.3-8.2) g/dL Albumin 2.7 L (3.5-5.0) g/dL Assessment and Plan Plan: Assessment: #1. Acute hypercapnic respiratory failure related to acute exacerbation of CHF, chest x-ray showing findings consistent with pulmonary edema, and hypoventilation related to operative sedation. Patient was reintubated in the PACU and transferred to the ICU. Patient was successfully weaned and extubated from the mechanical ventilator, tolerating extubation quite well so far, remains on diuretics, chest x-ray shows improving CHF #2. Acute metabolic acidosis, non-anion gap, improved #3. Right hip subtrochanteric fracture, closed, displaced, comminuted, status post closed reduction and IM and of the right hip, postoperative day 6 #4. History of TAVR in 2017 her history of severe aortic stenosis #5. History of coronary artery disease with previous stenting #6. History of hypertension #7. Paroxysmal atrial fibrillation currently in sinus mechanism #8. Diabetes mellitus type 2 #9. Osteoarthritis #10. Macular degeneration #11. History of chronic kidney disease, specifically #12. 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 She is on anticoagulation, her atrial fibrillation is controlled, values following, no acute events overnight, she is tolerating therapy sessions, she denies any pain, discharge is pending for discharge to [facility] today I performed a history & physical examination of the patient and discussed their management with my nurse practitioner, Emiliana Coelho. I reviewed the nurse practitioner's note and agree with the documented findings and plan of care. Lung sounds are positive for diminished breath sounds. The findings and the impression was discussed with the patient. I attest to the documentation by the nurse practitioner. Time with Patient: Less than 30
--- NOTE | 2020-07-30 15:55 | P.DS ---
Providers Date of admission: 07/21/20 21:57 Attending physician: Orion Bose Consults: 07/21/20 21:42 Consult Physician Routine Consulting Provider: Orion Bose Consult Reason/Comments: medicine consult Do you want consulting provider notified?: Yes Consult Physician Routine Consulting Provider: Alecia Seth Consult Reason/Comments: preoperative planning Do you want consulting provider notified?: Yes 07/23/20 17:06 Consult Physician Stat Consulting Provider: Caitlin Radford Consult Reason/Comments: intubated from OR Do you want consulting provider notified?: Already Contacted Primary care physician: Orion Bose - Discharge Diagnosis(es) (1) Hip fracture Current Visit: Yes Status: Acute (2) Atrial fibrillation with RVR Current Visit: No Status: Acute (3) History of atrial fibrillation Current Visit: No Status: Chronic (4) History of hyperlipidemia Current Visit: No Status: Chronic (5) History of hypertension Current Visit: No Status: Chronic Hospital Course: This is discharge summary an 84-year-old white female essentially had a traumatic fall resulting in hip fracture. She was essentially admitted for hip arthroplasty. The patient had a kvng postop course. Was at dinner when she became hypotensive due to side effects from anesthesia and ended up being intubated for 24-36 hrs. The patient did well after recovering. Her home medications were restarted but she had developed atrial fibrillation. The patient was then placed on appropriate amiodarone. The patient was then transitioned to beta and calcium channel patrica and was stabilized for heart rate. She is tolerating diet. Orthopedic has signed off and she will be transferred to [facility] for appropriate rehabilitation. Patient Condition at Discharge: Fair Plan - Discharge Summary Discharge Rx Participant: Yes New Discharge Prescriptions: New RX: Diltiazem Oral [Cardizem*] 90 mg PO TID #90 tab RX: Furosemide [Lasix] 40 mg PO BID@0900,1600 tab RX: Levofloxacin [Levaquin] 250 mg PO HS tab RX: Metoprolol Tartrate [Lopressor] 75 mg PO BID #60 tab RX: INSULIN ASPART (NovoLOG) [NovoLOG (formulary)] 0 unit SQ ACHS vial RX: traMADol HCl [Ultram] 50 mg PO QID #120 tab Continue RX: Lovastatin [Mevacor] 20 mg PO DAILY RX: Potassium Chloride [K-Tab ER] 10 meq PO DAILY RX: hydrALAZINE HCL [Apresoline] 75 mg PO TID RX: Magnesium Oxide 400 mg PO DAILY RX: allopurinoL [Zyloprim] 150 mg PO DAILY RX: Vitamin E Acetate [Vitamin E] 200 unit PO DAILY RX: glipiZIDE XL [Glucotrol XL] 10 mg PO AC-BID RX: Famotidine [Pepcid] 20 mg PO DAILY #30 tab RX: Apixaban [Eliquis] 2.5 mg PO BID RX: Ascorbic Acid [Vitamin C] 500 mg PO DAILY RX: Multivitamins, Thera [Multivitamin (formulary)] 1 tab PO DAILY RX: Cholecalciferol [Vitamin D3] 800 unit PO DAILY RX: lisinopriL [Zestril] 2.5 mg PO HS RX: Docusate [Colace] 200 mg PO DAILY Discontinued RX: Metoprolol Succinate (ER) [Toprol XL] 100 mg PO DAILY #30 tab.er.24h RX: Furosemide [Lasix] 80 - 120 mg PO DIRECTED PRN PRN Reason: WATER RETENTION. Diltiazem HCl [Cardizem] 90 mg PO BID Discharge Medication List RX: Lovastatin [Mevacor] 20 mg PO DAILY 06/23/14 [History] RX: Potassium Chloride [K-Tab ER] 10 meq PO DAILY 06/23/14 [History] RX: hydrALAZINE HCL [Apresoline] 75 mg PO TID 12/08/16 [History] RX: Magnesium Oxide 400 mg PO DAILY 02/17/17 [History] RX: allopurinoL [Zyloprim] 150 mg PO DAILY 04/28/17 [History] RX: Vitamin E Acetate [Vitamin E] 200 unit PO DAILY 11/07/17 [History] RX: glipiZIDE XL [Glucotrol XL] 10 mg PO AC-BID 11/17/17 [History] RX: Famotidine [Pepcid] 20 mg PO DAILY #30 tab 11/23/17 [Rx] RX: Apixaban [Eliquis] 2.5 mg PO BID 01/29/18 [History] RX: Ascorbic Acid [Vitamin C] 500 mg PO DAILY 01/29/18 [History] RX: Multivitamins, Thera [Multivitamin (formulary)] 1 tab PO DAILY 01/29/18 [History] RX: Cholecalciferol [Vitamin D3] 800 unit PO DAILY 07/21/20 [History] RX: Docusate [Colace] 200 mg PO DAILY 07/21/20 [History] RX: lisinopriL [Zestril] 2.5 mg PO HS 07/21/20 [History] RX: Diltiazem Oral [Cardizem*] 90 mg PO TID #90 tab 07/30/20 [Rx] RX: Furosemide [Lasix] 40 mg PO BID@0900,1600 tab 07/30/20 [Rx] RX: INSULIN ASPART (NovoLOG) [NovoLOG (formulary)] 0 unit SQ ACHS vial 07/30/20 [Rx] RX: Levofloxacin [Levaquin] 250 mg PO HS tab 07/30/20 [Rx] RX: Metoprolol Tartrate [Lopressor] 75 mg PO BID #60 tab 07/30/20 [Rx] RX: traMADol HCl [Ultram] 50 mg PO QID #120 tab 07/30/20 [Rx] Follow up Appointment(s)/Referral(s): Alecia Seth MD [STAFF PHYSICIAN] - 2 Weeks Gilberto Betts DO [Doctor of Osteopathic Medicine] - 2 Weeks Orion Bose MD [Primary Care Provider] - 1 Week Activity/Diet/Wound Care/Special Instructions: Orthopedic discharge instructions: 1. Daily dressing changes, keep kezia clean and dry while showering. Okay to remove kezia on 08/08/2020 2. Toe-touch weightbearing with walker 3. Elevate the legs often 4. Plan for follow-up at [facility] in 2-[address] Betts Discharge Disposition: TRANSFER TO SNF/ECF
--- NOTE | 2020-07-31 12:07 | CDI ---
Documentation Clarification Form Date: 07/31/20 From: Yolanda Miller Phone: If you have a question about this query, please contact Mary Juárez, Manager Supply Chain Planning at [phone] between 8am and 5pm. Admit Date: 07/21/20 Discharge Date:07/30/20 Patient Name: Jeanna Fajardo Visit Number: [id number] ATTENTION: The Clinical Documentation Specialists (CDI) and [facility] Coding Staff appreciate your assistance in clarifying documentation. Please respond to the clarification below the line at the bottom and electronically sign. The CDI & [facility] Coding staff will review the response and follow-up if needed. Please note: Queries are made part of the Legal Health Record. If you have any questions, please contact the author of this message via ITS. Dear Dr. Bose Patient has been diagnosed with a fracture of the right hip subtrochanteric. History/Risk Factors: Fall from chair, osteoporosis with poor bone quality documented in the OP note, OA hips Clinical Indications: Pain of right hip, poor bone quality X-Ray Results: Right hip 07/21 - Acute intertrochanteric fracture of the right femur. Moderate osteoarthritis in the hip joints. Treatment: Closed reduction and intramedullary nailing of the right hip fracture In your professional opinion, please specify the following: Etiology of fracture: Traumatic-yes Pathological (specify cause): Osteoporosis-this is correct dx Other(please specify): Other (please specify): Unable to determine MTDD
--- NOTE | 2020-07-31 12:31 | CDI ---
Documentation Clarification Form Date: 07/31/20 From: Yolanda Miller Phone: If you have a question about this query, please contact Mary Juárez, Technical Marketing Consultant at [phone] between 8am and 5pm. Admit Date: 07/21/20 Discharge Date:07/30/20 Patient Name: Jeanna Fajardo Visit Number: [id number] ATTENTION: The Clinical Documentation Specialists (CDI) and [facility] Coding Staff appreciate your assistance in clarifying documentation. Please respond to the clarification below the line at the bottom and electronically sign. The CDI & [facility] Coding staff will review the response and follow-up if needed. Please note: Queries are made part of the Legal Health Record. If you have any questions, please contact the author of this message via ITS. Dear Dr. Bose An episode of transient hypotension is documented in the Pulmonology consult note and progress notes. History/Risk Factors: Right hip fracture with closed reduction and IM nailing, acute diastolic CHF after surgery, acute hypercapnic respiratory failure postoperatively, BOBBY, UTI, IA type 2. Clinical Indicators: Decreased blood pressure Patients B/P: 07/21/20 - systolic 164 - 183, diastolic 50 - 78; 07/22/20 - systolic 117 - 173, diastolic 46 - 61; 07/23/20 - 83/43 once, systolic 110 - 168, diastolic 43 - 79; 07/29/20 - 93/61 once then systolic 107 - 159, diastolic 61 - 79 Labs: Hgb/Hct 07/23/20 - 8.6/26.4, 8.3/24.9; 07/24/20 - 7.0/21.4, 8.2/26.1 07/23/20 - creatinine 1.28, BUN 24 Treatment: Transfusion PRBC 07/23, NS Bolus 1/2 liter, IV Norepinephrine 254 mls @ 17.621 mls/hr In your professional opinion, can you please specify the etiology of the hypotension if known? Iatrogenic Hypotension Neurogenic Orthostatic Hypotension Idiopathic Hypotension Drug Induced Hypotension Postoperative Hypotension-this is the correct dx Other Condition, please specify Unable to determine MTDD
--- NOTE | 2020-08-04 12:15 | CDI ---
Documentation Clarification Form Date: 08/04/20 From: Yloanda Miller Phone: If you have a question about this query, please contact Mary Juárez, Kettle Hand at [phone] between 8am and 5pm. Admit Date: 07/21/20 Discharge Date:07/30/20 Patient Name: Jeanna Fajardo Visit Number: [id number] ATTENTION: The Clinical Documentation Specialists (CDI) and [facility] Coding Staff appreciate your assistance in clarifying documentation. Please respond to the clarification below the line at the bottom and electronically sign. The CDI & [facility] Coding staff will review the response and follow-up if needed. Please note: Queries are made part of the Legal Health Record. If you have any questions, please contact the author of this message via ITS. Dear Dr. Bose Thank you for signing the previous query. Please document a response before signing this query. Patient has been diagnosed with a fracture of the right hip subtrochanteric. History/Risk Factors: Fall from chair, osteoporosis with poor bone quality documented in the OP note, OA hips Clinical Indications: Pain of right hip, poor bone quality X-Ray Results: Right hip 07/21 - Acute intertrochanteric fracture of the right femur. Moderate osteoarthritis in the hip joints. Treatment: Closed reduction and intramedullary nailing of the right hip fracture In your professional opinion, please specify the following: Etiology of fracture: Traumatic Pathological (specify cause): Osteoporosis-This is the correct dx Other (please specify): Other (please specify): Unable to determine MTDD
--- NOTE | 2020-08-04 12:17 | CDI ---
Documentation Clarification Form Date: 08/04/20 From: Yolanda Miller Phone: If you have a question about this query, please contact Mary Juárez, Water Restoration Technician at [phone] between 8am and 5pm. Admit Date: 07/21/20 Discharge Date:07/30/20 Patient Name: Jeanna Fajardo Visit Number: [id number] ATTENTION: The Clinical Documentation Specialists (CDI) and [facility] Coding Staff appreciate your assistance in clarifying documentation. Please respond to the clarification below the line at the bottom and electronically sign. The CDI & [facility] Coding staff will review the response and follow-up if needed. Please note: Queries are made part of the Legal Health Record. If you have any questions, please contact the author of this message via ITS. Dear Dr. Bose Thank you for signing the previous query. Please document a response before signing this query. An episode of transient hypotension is documented in the Pulmonology consult note and progress notes. History/Risk Factors: Right hip fracture with closed reduction and IM nailing, acute diastolic CHF after surgery, acute hypercapnic respiratory failure postoperatively, BOBBY, UTI, DC type 2. Clinical Indicators: Decreased blood pressure Patients B/P: 07/21/20 - systolic 164 - 183, diastolic 50 - 78; 07/22/20 - systolic 117 - 173, diastolic 46 - 61; 07/23/20 - 83/43 once, systolic 110 - 168, diastolic 43 - 79; 07/29/20 - 93/61 once then systolic 107 - 159, diastolic 61 - 79 Labs: Hgb/Hct 07/23/20 - 8.6/26.4, 8.3/24.9; 07/24/20 - 7.0/21.4, 8.2/26.1 07/23/20 - creatinine 1.28, BUN 24 Treatment: Transfusion PRBC 07/23, NS Bolus 1/2 liter, IV Norepinephrine 254 mls @ 17.621 mls/hr In your professional opinion, can you please specify the etiology of the hypotension if known? Iatrogenic Hypotension Neurogenic Orthostatic Hypotension Idiopathic Hypotension Drug Induced Hypotension Postoperative Hypotension-This is the correct diagnosis Other Condition, please specify Unable to determine MTDD
== END 2020-07-30 16:33 | DRG 480 ==
LOC: SUPCPDRO 19:55 → EC 19:55 → 4SSUR 21:57 → 2SICU 07-23 16:38 → 3SCARD 07-27 13:27
PROVIDERS: ADMIT Family Medicine; ATTEND Family Medicine
PROC: 5A1935Z Respiratory Ventilation, Less than 24 Consecutive Hours (ICD-10-PCS; 2020-07-23)
PROC: 0BH17EZ Insertion of Endotracheal Airway into Trachea, Via Natural or Artificial Opening (ICD-10-PCS; 2020-07-23)
PROC: 5A09357 Assistance with Respiratory Ventilation, Less than 24 Consecutive Hours, Continuous Positive Airway Pressure (ICD-10-PCS; 2020-07-23)
PROC: 03HY32Z Insertion of Monitoring Device into Upper Artery, Percutaneous Approach (ICD-10-PCS; 2020-07-23)
PROC: 02H633Z Insertion of Infusion Device into Right Atrium, Percutaneous Approach (ICD-10-PCS; 2020-07-23)
PROC: 30233N1 Transfusion of Nonautologous Red Blood Cells into Peripheral Vein, Percutaneous Approach (ICD-10-PCS; 2020-07-23)
PROC: 0QS636Z Reposition Right Upper Femur with Intramedullary Internal Fixation Device, Percutaneous Approach (ICD-10-PCS; principal; 2020-07-23 12:45)
PROC: 3E033XZ Introduction of Vasopressor into Peripheral Vein, Percutaneous Approach (ICD-10-PCS; 2020-07-24)
DX: M80.851A Other osteoporosis with current pathological fracture, right femur, initial encounter for fracture (principal); G93.41 Metabolic encephalopathy; I21.A1 Myocardial infarction type 2; I50.31 Acute diastolic (congestive) heart failure; D62 Acute posthemorrhagic anemia; E87.2 Acidosis; I13.0 Hypertensive heart and chronic kidney disease with heart failure and stage 1 through stage 4 chronic kidney disease, or unspecified chronic kidney disease; N17.9 Acute kidney failure, unspecified; N39.0 Urinary tract infection, site not specified; Q21.1 Atrial septal defect; I95.81 Postprocedural hypotension; E11.22 Type 2 diabetes mellitus with diabetic chronic kidney disease; D63.1 Anemia in chronic kidney disease; E11.51 Type 2 diabetes mellitus with diabetic peripheral angiopathy without gangrene; F03.90 Unspecified dementia, unspecified severity, without behavioral disturbance, psychotic disturbance, mood disturbance, and anxiety; J84.10 Pulmonary fibrosis, unspecified; N18.30 Chronic kidney disease, stage 3 unspecified; E78.5 Hyperlipidemia, unspecified; H35.30 Unspecified macular degeneration; I25.10 Atherosclerotic heart disease of native coronary artery without angina pectoris; I48.0 Paroxysmal atrial fibrillation; J44.9 Chronic obstructive pulmonary disease, unspecified; R63.3 Feeding difficulties; K21.9 Gastro-esophageal reflux disease without esophagitis; M16.0 Bilateral primary osteoarthritis of hip; I08.3 Combined rheumatic disorders of mitral, aortic and tricuspid valves; R32 Unspecified urinary incontinence; E66.9 Obesity, unspecified; Z68.31 Body mass index [BMI] 31.0-31.9, adult; Z79.01 Long term (current) use of anticoagulants; Z79.84 Long term (current) use of oral hypoglycemic drugs; Z79.899 Other long term (current) drug therapy; Z85.828 Personal history of other malignant neoplasm of skin; Z95.2 Presence of prosthetic heart valve; Z95.5 Presence of coronary angioplasty implant and graft; Z87.891 Personal history of nicotine dependence; Z88.1 Allergy status to other antibiotic agents; Z88.8 Allergy status to other drugs, medicaments and biological substances; Z98.49 Cataract extraction status, unspecified eye; Z98.890 Other specified postprocedural states; Z87.19 Personal history of other diseases of the digestive system; Z82.49 Family history of ischemic heart disease and other diseases of the circulatory system; Z83.3 Family history of diabetes mellitus; Z80.9 Family history of malignant neoplasm, unspecified; Z82.0 Family history of epilepsy and other diseases of the nervous system; Z82.3 Family history of stroke; W07.XXXA Fall from chair, initial encounter; Y92.009 Unspecified place in unspecified non-institutional (private) residence as the place of occurrence of the external cause
CPT/HCPCS: 36415; 70450; 71045; 72192; 73502; 80048; 80053; 81001; 82805; 83036; 83735; 83880; 84484; 85025; 85027; 85610; 85730; 86850; 86900; 86901; 86920; 87077; 87086; 87186; 93005; 93306; 94002; 94003; 94660; 96374; 99285

== ENCOUNTER 2020-09-06 00:37 | Inpatient (IN) | payer MEDICARE ==
[2020-09-06] MEDS ORDERED: SODIUM CHLORIDE 0.9% 500 ML 500 ML IV ONE ×2 (01:18→02:34)
[2020-09-06 01:30] LABS: Appearance,Urine Turbid (Clear); Bacteria,Urine Moderate /hpf; Bilirubin,Urine Negative (Negative); Blood,Urine Negative (Negative); Color,Urine Yellow; Glucose,Urine (UA) Negative (Negative); Ketones,Urine Negative (Negative); Leukocyte Esterase,Urine Large (Negative); Nitrite,Urine Negative (Negative); Protein,Urine 2+ (Negative); RBC,Urine 72 /hpf (0-5); Squamous Epithelial Cell,Urine 3 /hpf (0-4); Urobilinogen,Urine <2.0 mg/dL (<2.0); WBC,Urine >182 /hpf (0-5)
[2020-09-06 01:33] LABS: Specific Gravity,Urine 1.015 (1.001-1.035)
--- NOTE | 2020-09-06 01:47 | ED ---
General Adult HPI - General Chief complaint: Urogenital Stated complaint: Painful urination Time Seen by Provider: 09/06/20 00:51 Source: patient, EMS Mode of arrival: EMS Limitations: physical limitation - History of Present Illness Initial comments: 84-year-old female patient presents to the emergency department today for evaluation of increased confusion and decreased appetite. Upon arrival the patient is reporting painful urination. Patient had hip fracture about 6 weeks ago, completed therapy at [facility], and recently moved back to her apartment. Patient states that she has had increasing confusion throughout the day and pushed her alert button when it got to be too much. Daughter states that she has not been eating and drinking as much. Patient denies any urinary urgency or frequency. She does wear a brief and is incontinent. Does report rash over her torri-area. Denies any recent fall or head injury. Patient denies any recent rash, fever, chills, cough, shortness of breath, chest pain, abdominal pain, nausea, vomiting, diarrhea, constipation, back pain, numbness, tingling, headache, visual changes, or any other complaints. - Related Data Home Medications Medication Instructions Recorded Confirmed Lovastatin [Mevacor] 20 mg PO DAILY 06/23/14 07/21/20 Potassium Chloride [K-Tab ER] 10 meq PO DAILY 06/23/14 07/21/20 hydrALAZINE HCL [Apresoline] 75 mg PO TID 12/08/16 07/21/20 Magnesium Oxide 400 mg PO DAILY 02/17/17 07/21/20 allopurinoL [Zyloprim] 150 mg PO DAILY 04/28/17 07/21/20 Vitamin E Acetate [Vitamin E] 200 unit PO DAILY 11/07/17 07/21/20 glipiZIDE XL [Glucotrol XL] 10 mg PO AC-BID 11/17/17 07/21/20 Apixaban [Eliquis] 2.5 mg PO BID 01/29/18 07/21/20 Ascorbic Acid [Vitamin C] 500 mg PO DAILY 01/29/18 07/21/20 Multivitamins, Thera [Multivitamin 1 tab PO DAILY 01/29/18 07/21/20 (formulary)] Cholecalciferol [Vitamin D3] 800 unit PO DAILY 07/21/20 07/21/20 Docusate [Colace] 200 mg PO DAILY 07/21/20 07/21/20 lisinopriL [Zestril] 2.5 mg PO HS 07/21/20 07/21/20 Previous Rx's Medication Instructions Recorded Famotidine [Pepcid] 20 mg PO DAILY #30 tab 11/23/17 Diltiazem Oral [Cardizem*] 90 mg PO TID #90 tab 07/30/20 Furosemide [Lasix] 40 mg PO BID@0900,1600 tab 07/30/20 INSULIN ASPART (NovoLOG) [NovoLOG 0 unit SQ ACHS vial 07/30/20 (formulary)] Levofloxacin [Levaquin] 250 mg PO HS tab 07/30/20 Metoprolol Tartrate [Lopressor] 75 mg PO BID #60 tab 07/30/20 traMADol HCl [Ultram] 50 mg PO QID #120 tab 07/30/20 Allergies Allergy/AdvReac Type Severity Reaction Status Date / Time cephalexin monohydrate Allergy Rash/Hives Verified 09/06/20 00:54 [From Keflex] rofecoxib [From Vioxx] Allergy Unknown Verified 09/06/20 00:54 doxycycline [From Vibramycin] AdvReac Nausea & Verified 09/06/20 00:54 Vomiting Review of Systems ROS Statement: Those systems with pertinent positive or pertinent negative responses have been documented in the HPI. ROS Other: All systems not noted in ROS Statement are negative. Past Medical History Past Medical History: Coronary Artery Disease (CAD), Cancer, Diabetes Mellitus, GERD/Reflux, Hyperlipidemia, Hypertension, Osteoarthritis (OA), Renal Disease Additional Past Medical History / Comment(s): USES A WALKER, LEG SWELLING, MURMUR, SINUS PROBLEMS, BENIGN POLYPS, INCONT OF URINE, PAST HX ANEMIA, "kidney function-3.5", severe aortic stenosis, patent foramen ovale. SKIN CANCER History of Any Multi-Drug Resistant Organisms: None Reported Past Surgical History: Heart Catheterization, Heart Catheterization With Stent Additional Past Surgical History / Comment(s): CATARACT SURGERY, COLONOSCOPY, bisi, TAVR 01/03/2018. "STENT IN [facility]". Past Anesthesia/Blood Transfusion Reactions: No Reported Reaction Date of Last Stent Placement:: January 03, 2018 Past Psychological History: No Psychological Hx Reported Smoking Status: Former smoker Past Alcohol Use History: None Reported Past Drug Use History: None Reported - Past Family History Mother Family Medical History: CVA/TIA, Diabetes Mellitus Father Family Medical History: Cancer, Coronary Artery Disease (CAD) Brother(s) Family Medical History: CVA/TIA, Diabetes Mellitus Sister(s) Family Medical History: Dementia Son(s) Family Medical History: No Reported History Daughter(s) Family Medical History: No Reported History General Exam Limitations: physical limitation General appearance: alert, in no apparent distress, other (Physical well- developed, well-nourished elderly female patient in no acute distress. Vital signs upon presentation are temperature 97.0F, pulse 82, respiration 16, blood pressure 135/58, pulse ox 96% on room air.) Eye exam: Present: normal appearance, PERRL, EOMI. Absent: scleral icterus, conjunctival injection, periorbital swelling ENT exam: Present: normal exam, normal oropharynx Respiratory exam: Present: normal lung sounds bilaterally. Absent: respiratory distress, wheezes, rales, rhonchi, stridor Cardiovascular Exam: Present: regular rate, normal rhythm, normal heart sounds. Absent: systolic murmur, diastolic murmur, rubs, gallop, clicks GI/Abdominal exam: Present: soft, normal bowel sounds. Absent: distended, tenderness, guarding, rebound, rigid Neurological exam: Present: alert, oriented X3, CN II-XII intact Psychiatric exam: Present: normal affect, normal mood Skin exam: Present: warm, dry, intact, normal color. Absent: rash Course Vital Signs 09/06/20 09/06/20 00:39 03:00 Temperature 97.0 F L Pulse Rate 82 70 Respiratory 16 16 Rate Blood Pressure 135/58 131/48 O2 Sat by Pulse 96 99 Oximetry EKG Findings - EKG Comments: EKG Findings:: EKG obtained at 02 49 shows first-degree AV block with a ventricular rate of 60, QRS duration 132, QT 478, QTC 478. No evidence of ST elevation or depression. Read is somewhat limited by artifact. Medical Decision Making - Medical Decision Making 84-year-old female patient presented to the emergency department today for evaluation of increased confusion. She is also reporting urinary symptoms upon arrival. Labs reviewed and did reveal hemoglobin 9.7 which is chronic for her. Sodium is 124 with a correction to 125 for hyperglycemia. Potassium 6.4, chloride 90, BUN 108, creatinine 2.93, glucose is 192, urinalysis shows turbid appearance with 2+ protein, large leukocyte esterase, 72 red blood cells, greater than 182 white blood cells, many white blood cell clumps, and moderate bacteria. We did give IV fluids. We gave her hyperkalemia cocktail including insulin, calcium chloride, and 50% dextrose. Patient was started on 75 per hour normal saline. We also started Zosyn for urinary tract infection as she is ALLERGIC to cephalosporins and had a history of Proteus mirabillus in her urine in July. I did discuss findings, results, plan with the patient and her family, they are agreeable. - Lab Data Result diagrams: 09/06/20 01:41 09/06/20 01:41 Lab Results 09/06/20 09/06/20 09/06/20 Range/Units 01:08 01:41 01:41 WBC 10.6 (3.8-10.6) k/uL RBC 3.24 L (3.80-5.40) m/uL Hgb 9.7 L (11.4-16.0) gm/dL Hct 30.1 L (34.0-46.0) % MCV 92.9 D (80.0-100.0) fL MCH 29.8 (25.0-35.0) pg MCHC 32.1 (31.0-37.0) g/dL RDW 16.4 H (11.5-15.5) % Plt Count 487 H D (150-450) k/uL MPV 7.6 Neutrophils % 81 % Lymphocytes % 10 % Monocytes % 4 % Eosinophils % 4 % Basophils % 1 % Neutrophils # 8.6 H (1.3-7.7) k/uL Lymphocytes # 1.0 (1.0-4.8) k/uL Monocytes # 0.4 (0-1.0) k/uL Eosinophils # 0.4 (0-0.7) k/uL Basophils # 0.1 (0-0.2) k/uL Anisocytosis Slight Sodium 124 L (137-145) mmol/L Potassium 6.4 H* (3.5-5.1) mmol/L Chloride 90 L (98-107) mmol/L Carbon Dioxide 27 (22-30) mmol/L Anion Gap 7 mmol/L BUN 108 H* (7-17) mg/dL Creatinine 2.93 H (0.52-1.04) mg/dL Est GFR (CKD-EPI)AfAm 16 (>60 ml/min/1.73 sqM) Est GFR (CKD-EPI)NonAf 14 (>60 ml/min/1.73 sqM) Glucose 192 H (74-99) mg/dL Plasma Lactic Acid Evgeny (0.7-2.0) mmol/L Calcium 9.3 (8.4-10.2) mg/dL Total Bilirubin 0.4 (0.2-1.3) mg/dL AST 28 (14-36) U/L ALT 11 (4-34) U/L Alkaline Phosphatase 78 (38-126) U/L Total Protein 6.6 (6.3-8.2) g/dL Albumin 3.5 (3.5-5.0) g/dL Urine Color Yellow Urine Appearance Turbid H (Clear) Urine pH 6.0 (5.0-8.0) Ur Specific [place] 1.015 (1.001-1.035) Urine Protein 2+ H (Negative) Urine Glucose (UA) Negative (Negative) Urine Ketones Negative (Negative) Urine Blood Negative (Negative) Urine Nitrite Negative (Negative) Urine Bilirubin Negative (Negative) Urine Urobilinogen <2.0 (<2.0) mg/dL Ur Leukocyte Esterase Large H (Negative) Urine RBC 72 H (0-5) /hpf Urine WBC >182 H (0-5) /hpf Urine WBC Clumps Many H (None) /hpf Ur Squamous Epith Cells 3 (0-4) /hpf Urine Bacteria Moderate H (None) /hpf 09/06/20 Range/Units 01:41 WBC (3.8-10.6) k/uL RBC (3.80-5.40) m/uL Hgb (11.4-16.0) gm/dL Hct (34.0-46.0) % MCV (80.0-100.0) fL MCH (25.0-35.0) pg MCHC (31.0-37.0) g/dL RDW (11.5-15.5) % Plt Count (150-450) k/uL MPV Neutrophils % % Lymphocytes % % Monocytes % % Eosinophils % % Basophils % % Neutrophils # (1.3-7.7) k/uL Lymphocytes # (1.0-4.8) k/uL Monocytes # (0-1.0) k/uL Eosinophils # (0-0.7) k/uL Basophils # (0-0.2) k/uL Anisocytosis Sodium (137-145) mmol/L Potassium (3.5-5.1) mmol/L Chloride (98-107) mmol/L Carbon Dioxide (22-30) mmol/L Anion Gap mmol/L BUN (7-17) mg/dL Creatinine (0.52-1.04) mg/dL Est GFR (CKD-EPI)AfAm (>60 ml/min/1.73 sqM) Est GFR (CKD-EPI)NonAf (>60 ml/min/1.73 sqM) Glucose (74-99) mg/dL Plasma Lactic Acid Evgeny 1.0 (0.7-2.0) mmol/L Calcium (8.4-10.2) mg/dL Total Bilirubin (0.2-1.3) mg/dL AST (14-36) U/L ALT (4-34) U/L Alkaline Phosphatase (38-126) U/L Total Protein (6.3-8.2) g/dL Albumin (3.5-5.0) g/dL Urine Color Urine Appearance (Clear) Urine pH (5.0-8.0) Ur Specific [place] (1.001-1.035) Urine Protein (Negative) Urine Glucose (UA) (Negative) Urine Ketones (Negative) Urine Blood (Negative) Urine Nitrite (Negative) Urine Bilirubin (Negative) Urine Urobilinogen (<2.0) mg/dL Ur Leukocyte Esterase (Negative) Urine RBC (0-5) /hpf Urine WBC (0-5) /hpf Urine WBC Clumps (None) /hpf Ur Squamous Epith Cells (0-4) /hpf Urine Bacteria (None) /hpf Disposition Clinical Impression: Urinary tract infection, Acute on chronic renal failure, Hyperkalemia Disposition: ADMITTED IP TO THIS [facility] Condition: Serious Referrals: Orion Bose MD [Primary Care Provider] - 1-2 days Decision to Admit Reason: Admit from EC Decision Date: 09/06/20 Decision Time: 03:03
[2020-09-06 01:55] LABS: Anisocytosis Slight; Basophils # (A) 0.1 k/uL (0-0.2); Basophils % (A) 1 %; Eosinophils # (A) 0.4 k/uL (0-0.7); Eosinophils % (A) 4 %; HCT 30.1 % (34.0-46.0); HGB 9.7 gm/dL (11.4-16.0); Lymphocytes % (A) 10 %; MCH 29.8 pg (25.0-35.0); MCHC 32.1 g/dL (31.0-37.0); Mean Platelet Volume 7.6; Monocytes # (A) 0.4 k/uL (0-1.0); Monocytes % (A) 4 %; Neutrophils # (A) 8.6 k/uL (1.3-7.7); Neutrophils % (A) 81 %; RBC 3.24 m/uL (3.80-5.40); RDW 16.4 % (11.5-15.5); WBC 10.6 k/uL (3.8-10.6)
[2020-09-06 02:10] LABS: Albumin 3.5 g/dL (3.5-5.0); Calcium 9.3 mg/dL (8.4-10.2); Total Bilirubin 0.4 mg/dL (0.2-1.3); Total Protein 6.6 g/dL (6.3-8.2)
[2020-09-06 02:15] LABS: MCV 92.9 fL (80.0-100.0); Platelet Count 487 k/uL (150-450)
--- NOTE | 2020-09-06 02:24 | XR ---
EXAM: XR Chest, 2 Views CLINICAL HISTORY: ITS.REASON XR Reason: confusion; weakness TECHNIQUE: Frontal and lateral views of the chest. COMPARISON: July 27, 2020 FINDINGS: Lungs: There are prominent interstitial markings throughout both lungs, slightly increased compared to previous. Pleural space: Slight blunting of both costophrenic angles.. No pneumothorax. Heart: The cardiac silhouette is mildly enlarged. Mediastinum: Unremarkable. Bones/joints: Mild osteophytosis of the lower thoracic spine. Vasculature: The aortic arch is calcified but nondilated. Tubes, lines and devices: Status post TAVR. Upper abdomen: No pneumoperitoneum under the diaphragm. IMPRESSION: Previous TAVR. Mild cardiomegaly with slightly more prominent vascular and interstitial markings and previous, possibly mild CHF.
[2020-09-06 02:32] LABS: Potassium 6.4 mmol/L (3.5-5.1)
[2020-09-06] MEDS ORDERED: DEXTROSE 50% SYRINGE 50 ML IVP STA (02:34)
[2020-09-06] MEDS ORDERED: INSULIN REGULAR 100 UNIT/ML VIAL IV STA (02:34)
[2020-09-06] MEDS ORDERED: SODIUM BICARB 8.4% 50 ML SYR (1 MEQ/ML) IV STA (02:35)
[2020-09-06] MEDS ORDERED: CALCIUM GLUCONATE 1 GM in SODIUM CHLORIDE 0.9% 100 ML IVPB ONE (02:45)
[2020-09-06] MEDS: SODIUM CHLORIDE 0.9% 1,000 ML IV SCH ×2 (02:56→16:55)
[2020-09-06] MEDS ORDERED: ACETAMINOPHEN TAB 325 MG TAB PO PRN (03:00)
[2020-09-06] MEDS ORDERED: NALOXONE 0.4 MG/ML 1 ML VIAL IV PRN (03:00)
[2020-09-06] MEDS ORDERED: ONDANSETRON 4 MG/2 ML VIAL IVP PRN (03:00)
[2020-09-06] MEDS ORDERED: PIPERACILLIN-TAZOBACTAM 3.375 GM in SODIUM CHLORIDE 0.9% 100 ML IVPB STA (03:05)
[2020-09-06 06:37] LABS: Anisocytosis Slight; Basophils # (A) 0.1 k/uL (0-0.2); Basophils % (A) 1 %; Eosinophils # (A) 0.4 k/uL (0-0.7); Eosinophils % (A) 4 %; HCT 26.2 % (34.0-46.0); HGB 8.7 gm/dL (11.4-16.0); Lymphocytes # (A) 1.1 k/uL (1.0-4.8); Lymphocytes % (A) 12 %; MCH 30.3 pg (25.0-35.0); MCHC 33.1 g/dL (31.0-37.0); MCV 91.8 fL (80.0-100.0); Mean Platelet Volume 7.5; Monocytes # (A) 0.4 k/uL (0-1.0); Monocytes % (A) 4 %; Neutrophils # (A) 7.2 k/uL (1.3-7.7); Neutrophils % (A) 78 %; Platelet Count 380 k/uL (150-450); RBC 2.86 m/uL (3.80-5.40); WBC 9.2 k/uL (3.8-10.6)
[2020-09-06 06:58] LABS: Potassium 5.1 mmol/L (3.5-5.1)
[2020-09-06 08:19] LABS: Glucose,Whole Blood 146 mg/dL (75-99)
--- NOTE | 2020-09-06 10:39 | P.CNOR ---
History of Present Illness - [facility] Consult date: 09/06/20 Consult reason: fracture History of present illness: 84 yo female with R reverse oblique IT frature s/p fixation 6 weeks prior. Doing well with hip. States she has been up on it and walking with assist, however she is slightly confused and has dementia and is a poor historian. She finished her time at rehab and apparently was able to go home but returned with sx of a UTI. Incisions have healed and are CDI. No other issues orthopedically. Denies pain in hip. Denies radiating pain. No f/c/sob/cp. No numbness./tingling. Review of Systems 14 points review of systems completed and as stated in HPI, all other systems reviewed are negative. Past Medical History Past Medical History: Coronary Artery Disease (CAD), Cancer, Diabetes Mellitus, GERD/Reflux, Hyperlipidemia, Hypertension, Osteoarthritis (OA), Renal Disease Additional Past Medical History / Comment(s): USES A WALKER, LEG SWELLING, MURMUR, SINUS PROBLEMS, BENIGN POLYPS, INCONT OF URINE, PAST HX ANEMIA, "kidney function-3.5", severe aortic stenosis, patent foramen ovale. SKIN CANCER History of Any Multi-Drug Resistant Organisms: None Reported Past Surgical History: Heart Catheterization, Heart Catheterization With Stent Additional Past Surgical History / Comment(s): CATARACT SURGERY, COLONOSCOPY, bisi, TAVR 01/03/2018. "STENT IN [facility]". Past Anesthesia/Blood Transfusion Reactions: No Reported Reaction Date of Last Stent Placement:: January 03, 2018 Past Psychological History: No Psychological Hx Reported Smoking Status: Former smoker Past Alcohol Use History: None Reported Past Drug Use History: None Reported - Past Family History Mother Family Medical History: CVA/TIA, Diabetes Mellitus Father Family Medical History: Cancer, Coronary Artery Disease (CAD) Brother(s) Family Medical History: CVA/TIA, Diabetes Mellitus Sister(s) Family Medical History: Dementia Son(s) Family Medical History: No Reported History Daughter(s) Family Medical History: No Reported History Medications and Allergies Home Medications Medication Instructions Recorded Confirmed Type Lovastatin [Mevacor] 20 mg PO DAILY 06/23/14 07/21/20 History Potassium Chloride [K-Tab ER] 10 meq PO DAILY 06/23/14 07/21/20 History hydrALAZINE HCL [Apresoline] 75 mg PO TID 12/08/16 07/21/20 History Magnesium Oxide 400 mg PO DAILY 02/17/17 07/21/20 History allopurinoL [Zyloprim] 150 mg PO DAILY 04/28/17 07/21/20 History Vitamin E Acetate [Vitamin E] 200 unit PO DAILY 11/07/17 07/21/20 History glipiZIDE XL [Glucotrol XL] 10 mg PO AC-BID 11/17/17 07/21/20 History Famotidine [Pepcid] 20 mg PO DAILY #30 tab 11/23/17 07/21/20 Rx Apixaban [Eliquis] 2.5 mg PO BID 01/29/18 07/21/20 History Ascorbic Acid [Vitamin C] 500 mg PO DAILY 01/29/18 07/21/20 History Multivitamins, Thera [Multivitamin 1 tab PO DAILY 01/29/18 07/21/20 History (formulary)] Cholecalciferol [Vitamin D3] 800 unit PO DAILY 07/21/20 07/21/20 History Docusate [Colace] 200 mg PO DAILY 07/21/20 07/21/20 History lisinopriL [Zestril] 2.5 mg PO HS 07/21/20 07/21/20 History Diltiazem Oral [Cardizem*] 90 mg PO TID #90 tab 07/30/20 Rx Furosemide [Lasix] 40 mg PO BID@0900,1600 tab 07/30/20 Rx INSULIN ASPART (NovoLOG) [NovoLOG 0 unit SQ ACHS vial 07/30/20 Rx (formulary)] Levofloxacin [Levaquin] 250 mg PO HS tab 07/30/20 Rx Metoprolol Tartrate [Lopressor] 75 mg PO BID #60 tab 07/30/20 Rx traMADol HCl [Ultram] 50 mg PO QID #120 tab 07/30/20 Rx Allergies Allergy/AdvReac Type Severity Reaction Status Date / Time cephalexin monohydrate Allergy Rash/Hives Verified 09/06/20 00:54 [From Keflex] rofecoxib [From Vioxx] Allergy Unknown Verified 09/06/20 00:54 doxycycline [From Vibramycin] AdvReac Nausea & Verified 09/06/20 00:54 Vomiting Physical Examination Osteopathic Statement: *. No significant issues noted on an osteopathic struc tural exam other than those noted in the History and Physical/Consult. GEN: AOX2-3, mild confusion NAD VSS Inspection: [wound inspection shows no erythema or ecchymosis or edema well- healed incisions on the lateral aspect of her right leg. No pain with logroll.] Palpation: [no tennis palpation of the lateral aspect of the thigh or leg.] Motor: [5]/5 shoulder abd/EF/EE/WF/intrinsics [5]/5 DF/PF/EHL/FHL/HF/KE/KF patient is generally weak secondary to her advanced age and current state Reflexes: 2/4 DTR all upper and LE Sensation intact to light touch in C5-T1 as well as L2-S1 distribution Incision: [Clean dry and intact] 2 out of 4 DP and PT pulses bilaterally Compartments soft and compressible Results - Labs Labs: Abnormal Lab Results - Last 24 Hours (Table) 09/06/20 09/06/20 09/06/20 Range/Units 01:08 01:41 01:41 RBC 3.24 L (3.80-5.40) m/uL Hgb 9.7 L (11.4-16.0) gm/dL Hct 30.1 L (34.0-46.0) % RDW 16.4 H (11.5-15.5) % Plt Count 487 H D (150-450) k/uL Neutrophils # 8.6 H (1.3-7.7) k/uL Sodium 124 L (137-145) mmol/L Potassium 6.4 H* (3.5-5.1) mmol/L Chloride 90 L (98-107) mmol/L BUN 108 H* (7-17) mg/dL Creatinine 2.93 H (0.52-1.04) mg/dL Glucose 192 H (74-99) mg/dL POC Glucose (mg/dL) (75-99) mg/dL Urine Appearance Turbid H (Clear) Urine Protein 2+ H (Negative) Ur Leukocyte Esterase Large H (Negative) Urine RBC 72 H (0-5) /hpf Urine WBC >182 H (0-5) /hpf Urine WBC Clumps Many H (None) /hpf Urine Bacteria Moderate H (None) /hpf 09/06/20 09/06/2020 Range/Units 06:09 06:09 08:17 RBC 2.86 L (3.80-5.40) m/uL Hgb 8.7 L (11.4-16.0) gm/dL Hct 26.2 L (34.0-46.0) % RDW 16.0 H (11.5-15.5) % Plt Count (150-450) k/uL Neutrophils # (1.3-7.7) k/uL Sodium 130 L (137-145) mmol/L Potassium (3.5-5.1) mmol/L Chloride 96 L (98-107) mmol/L BUN 95 H (7-17) mg/dL Creatinine 2.73 H (0.52-1.04) mg/dL Glucose 46 L* (74-99) mg/dL POC Glucose (mg/dL) 146 H (75-99) mg/dL Urine Appearance (Clear) Urine Protein (Negative) Ur Leukocyte Esterase (Negative) Urine RBC (0-5) /hpf Urine WBC (0-5) /hpf Urine WBC Clumps (None) /hpf Urine Bacteria (None) /hpf Microbiology - Last 24 Hours (Table) 09/06/20 01:08 Urine Culture - Preliminary Urine,Catheterized H & H 09/06/20 09/06/20 Range/Units 01:41 06:09 Hgb 9.7 L 8.7 L (11.4-16.0) gm/dL Hct 30.1 L 26.2 L (34.0-46.0) % Result Diagrams: 09/06/20 06:09 09/06/20 06:09 Assessment and Plan Assessment: 84-year-old female 6 weeks status post right hip closed reduction and intramedullary nail fixation doing well. UTI Plan: -appreciate consult -Medical management -Weightbearing as tolerated right lower extremity with assist -Pain control as needed -X-rays right hip and pelvis to assess fracture and hardware -No immediate orthopedic surgical plans
--- NOTE | 2020-09-06 13:59 | XR ---
EXAMINATION TYPE: XR Hip RT and AP Pelvis DATE OF EXAM: 09/06/2020 COMPARISON: Prior pelvic and right hip x-ray July 21, 2020 HISTORY: Recent surgery with pain. TECHNIQUE: A single AP view of the pelvis is obtained. Two views of the right hip are obtained. FINDINGS: Osseous structures are demineralized. Demineralization along with large body habitus makes evaluation suboptimal. Sacroiliac joints show persistent narrowing and sclerosis bilaterally. Persist ent narrowing of pubic symphysis. Advanced axial joint space loss left hip with moderate to advanced acetabular spurring. Vascular calcification in the bilateral pelvic region extending to bilateral irasema in regions is redemonstrated. Two views right hip show partial visualization of intramedullary alexandra and large femoral neck fixating screws through comminuted intertrochanteric fracture right femur. There is advanced axial joint space loss and moderate acetabular spurring with subchondral cystic change redemonstrated. Alignment is ma intained after reduction and fixation. IMPRESSION: As above. No new or acute findings identified.
--- NOTE | 2020-09-06 13:59 | P.HPIM ---
History of Present Illness This is a pleasant 84 years old female with multiple medical problems as below. She is a patient of Dr. Bose. She was recently this hospital for hip fracture, and A. fib with RVR. At that time she had postop hypotension and res piratory failure he needed intubation for one-day. She was evaluated by labor relations or personnel negotiator and orthopedic and sent to [facility] for rehab She presents because of increasing confusion and loss of appetite. She was recently discharged from her rehab at [facility] back to home where slowly and gradually started to get worse and deteriorates. Patient is currently more awake, she complains from mild suprapubic tenderness with no significant dysuria Vitas looks stable Urine analysis is turbid and suspicious for infection. WBC is 9.2K, hemoglobin 8.7, platelets is 380 K. Lowe sodium 124, improved to 1:30, hypertensive 6.4, came back to normal 5.1. Creatinine 2.9 came back to 2.7, baseline is 1.4-1.6 Liver enzymes not elevated. Chest x-ray possible mild CHF. EKG showing normal sinus rhythm at [address]-T changes and QTC 478. In the emergency room patient was started on Zosyn Review of Systems CONSTITUTIONAL: No fever, no malaise, no fatigue. HEENT: No recent visual problems or hearing problems. Denied any sore throat. CARDIOVASCULAR: No orthopnea, PND, no palpitations, no syncope. PULMONARY: No shortness of breath, no cough, no hemoptysis. GASTROINTESTINAL: No diarrhea, no nausea, no vomiting, no abdominal pain. Normoactive bowel sounds. NEUROLOGICAL: No headaches, no weakness, no numbness. HEMATOLOGICAL: Denies any bleeding or petechiae. GENITOURINARY: Denies any burning micturition, frequency, or urgency. MUSCULOSKELETAL/RHEUMATOLOGICAL: Denies any joint pain, swelling, or any muscle pain. ENDOCRINE: Denies any polyuria or polydipsia. Past Medical History Past Medical History: Coronary Artery Disease (CAD), Cancer, Diabetes Mellitus, GERD/Reflux, Hyperlipidemia, Hypertension, Osteoarthritis (OA), Renal Disease Additional Past Medical History / Comment(s): USES A WALKER, LEG SWELLING, MURMUR, SINUS PROBLEMS, BENIGN POLYPS, INCONT OF URINE, PAST HX ANEMIA, "kidney function-3.5", severe aortic stenosis, patent foramen ovale. SKIN CANCER History of Any Multi-Drug Resistant Organisms: None Reported Past Surgical History: Heart Catheterization, Heart Catheterization With Stent Additional Past Surgical History / Comment(s): CATARACT SURGERY, COLONOSCOPY, bisi, TAVR 01/03/2018. "STENT IN [facility]". Past Anesthesia/Blood Transfusion Reactions: No Reported Reaction Date of Last Stent Placement:: January 03, 2018 Past Psychological History: No Psychological Hx Reported Smoking Status: Former smoker Past Alcohol Use History: None Reported Past Drug Use History: None Reported - Past Family History Mother Family Medical History: CVA/TIA, Diabetes Mellitus Father Family Medical History: Cancer, Coronary Artery Disease (CAD) Brother(s) Family Medical History: CVA/TIA, Diabetes Mellitus Sister(s) Family Medical History: Dementia Son(s) Family Medical History: No Reported History Daughter(s) Family Medical History: No Reported History Medications and Allergies Home Medications Medication Instructions Recorded Confirmed Type Potassium Chloride [K-Tab ER] 10 meq PO DAILY 06/23/14 09/06/20 History hydrALAZINE HCL [Apresoline] 50 mg PO TID 12/08/16 09/06/20 History Magnesium Oxide 400 mg PO DAILY 02/17/17 09/06/20 History glipiZIDE XL [Glucotrol XL] 10 mg PO AC-BID 11/17/17 09/06/20 History Famotidine [Pepcid] 20 mg PO DAILY #30 tab 11/23/17 09/06/20 Rx Apixaban [Eliquis] 2.5 mg PO BID 01/29/18 09/06/20 History Ascorbic Acid [Vitamin C] 500 mg PO DAILY 01/29/18 09/06/20 History Cholecalciferol [Vitamin D3] 800 unit PO DAILY 07/21/20 09/06/20 History Docusate [Colace] 200 mg PO DAILY 07/21/20 09/06/20 History lisinopriL [Zestril] 2.5 mg PO HS 07/21/20 09/06/20 History Furosemide [Lasix] 40 mg PO BID@0900,1600 tab 07/30/20 09/06/20 Rx Metoprolol Tartrate [Lopressor] 75 mg PO BID #60 tab 07/30/20 09/06/20 Rx traMADol HCl [Ultram] 50 mg PO QID #120 tab 07/30/20 09/06/20 Rx Acetaminophen [Tylenol] 650 mg PO Q4H PRN 09/06/20 09/06/20 History Aspirin 81 mg PO DAILY@0900 09/06/20 09/06/20 History Diltiazem HCl [Cardizem] 90 mg PO BID 09/06/20 09/06/20 History Lovastatin [Altoprev] 20 mg PO HS 09/06/20 09/06/20 History Multivitamins, Thera [Multivitamin 1 tab PO DAILY 09/06/20 09/06/20 History (formulary)] Polyethylene Glycol 3350 [Miralax] 17 gm PO DAILY 09/06/20 09/06/20 History Vitamin E 400 unit PO DAILY 09/06/20 09/06/20 History allopurinoL [Zyloprim] 150 mg PO DAILY 09/06/20 09/06/20 History hydrALAZINE HCL 25 mg PO TID 09/06/20 09/06/20 History Allergies Allergy/AdvReac Type Severity Reaction Status Date / Time cephalexin monohydrate Allergy Rash/Hives Verified 09/06/20 00:54 [From Keflex] rofecoxib [From Vioxx] Allergy Unknown Verified 09/06/20 00:54 doxycycline [From Vibramycin] AdvReac Nausea & Verified 09/06/20 00:54 Vomiting Physical Exam Vitals: Vital Signs Temp Pulse Resp BP Pulse Ox 09/06/20 11:30 97.1 F L 67 18 135/95 100 09/06/20 04:53 98 F 09/06/20 04:52 70 18 160/56 97 09/06/20 03:00 70 16 131/48 99 09/06/20 00:39 97.0 F L 82 16 135/58 96 Intake and Output 09/05/20 09/06/20 09/06/20 22:59 06:59 14:59 Other: Voiding Method Toilet Weight 77.111 kg GENERAL: The patient is alert and oriented x3, not in any acute distress. Well developed, well nourished. HEENT: Pupils are round and equally reacting to light. EOMI. No scleral icterus. No conjunctival pallor. Normocephalic, atraumatic. No pharyngeal erythema. No thyromegaly. CARDIOVASCULAR: S1 and S2 present. No murmurs, rubs, or gallops. PULMONARY: Chest is clear to auscultation, no wheezing or crackles. -ABDOMEN: Soft, mild suprapubic tenderness, nondistended, normoactive bowel sounds. No palpable organomegaly. MUSCULOSKELETAL: No joint swelling or deformity. EXTREMITIES: No cyanosis, clubbing, or pedal edema. NEUROLOGICAL: Gross neurological examination did not reveal any focal deficits. SKIN: No rashes. No petechiae Results CBC & Chem 7: 09/06/20 06:09 09/06/20 06:09 Labs: Abnormal Lab Results - Last 24 Hours (Table) 09/06/20 09/06/20 09/06/20 Range/Units 01:08 01:41 01:41 RBC 3.24 L (3.80-5.40) m/uL Hgb 9.7 L (11.4-16.0) gm/dL Hct 30.1 L (34.0-46.0) % RDW 16.4 H (11.5-15.5) % Plt Count 487 H D (150-450) k/uL Neutrophils # 8.6 H (1.3-7.7) k/uL Sodium 124 L (137-145) mmol/L Potassium 6.4 H* (3.5-5.1) mmol/L Chloride 90 L (98-107) mmol/L BUN 108 H* (7-17) mg/dL Creatinine 2.93 H (0.52-1.04) mg/dL Glucose 192 H (74-99) mg/dL POC Glucose (mg/dL) (75-99) mg/dL Urine Appearance Turbid H (Clear) Urine Protein 2+ H (Negative) Ur Leukocyte Esterase Large H (Negative) Urine RBC 72 H (0-5) /hpf Urine WBC >182 H (0-5) /hpf Urine WBC Clumps Many H (None) /hpf Urine Bacteria Moderate H (None) /hpf 09/06/20 09/06/20 09/06/20 Range/Units 06:09 06:09 08:17 RBC 2.86 L (3.80-5.40) m/uL Hgb 8.7 L (11.4-16.0) gm/dL Hct 26.2 L (34.0-46.0) % RDW 16.0 H (11.5-15.5) % Plt Count (150-450) k/uL Neutrophils # (1.3-7.7) k/uL Sodium 130 L (137-145) mmol/L Potassium (3.5-5.1) mmol/L Chloride 96 L (98-107) mmol/L BUN 95 H (7-17) mg/dL Creatinine 2.73 H (0.52-1.04) mg/dL Glucose 46 L* (74-99) mg/dL POC Glucose (mg/dL) 146 H (75-99) mg/dL Urine Appearance (Clear) Urine Protein (Negative) Ur Leukocyte Esterase (Negative) Urine RBC (0-5) /hpf Urine WBC (0-5) /hpf Urine WBC Clumps (None) /hpf Urine Bacteria (None) /hpf Microbiology - Last 24 Hours (Table) 09/06/20 01:08 Urine Culture - Preliminary Urine,Catheterized Assessment and Plan Assessment: recurrent Acute urinary tract infection acute kidney injury, mostly prerenal secondary to dehydration Metabolic encephalopathy secondary to above Status post fall and right hip fracture status post surgical reproduction A. fib with RVR, currently rate controlled Chronic kidney disease stage III severe aortic stenosis Hypertension Hyperlipidemia Osteoarthritis 2 diabetes mellitus History of coronary artery disease, status post stent placement Plan: This is a pleasant 84 years old male who presents with UTI and AK I. continue with gentle hydration, continue with Zosyn. Consult infectious disease Labs and medication were reviewed.. Continue same treatment. Continue with symptomatic treatment. Resume home medication. Monitor lytes and vitals. DVT and GI prophylaxis. Further recommendations depends on the clinical course of the patient DVT prophylaxis: Subcutaneous heparin GI Prophylaxis: Pepcid PT/OT: Pending Prognosis is guarded Dr. Bose will resume the care of the patient on Tuesday
[2020-09-06] MEDS ORDERED: hydrALAZINE HCL 50 MG TAB PO SCH (16:00)
[2020-09-06] MEDS: PIPERACILLIN-TAZOBACTAM 3.375 GM in SODIUM CHLORIDE 0.9% 100 ML IVPB SCH (16:54)
[2020-09-06] MEDS: hydrALAZINE HCL 25 MG TAB PO SCH ×2 (16:54→22:38)
--- NOTE | 2020-09-06 17:27 | P.NPCON ---
History of Present Illness - Reason for Consult Consult date: 09/06/20 acute renal failure, hyperkalemia - Chief Complaint Unwell - History of Present Illness Coming to the hospital from home as she was not feeling well at home. She has underlying CK D stage III baseline creatinine 1.4-1.7 MG per DL. Recently hospitalized for hip fracture status post surgery discharged to a rehab place and from there she went home. On admission serum sodium of 124 with a potassium of 6.4. She was treated medically sodium improved to 1:30 and a potassium of 5.1. She takes lisinopril/Lasix/potassium supplements at home. Currently sleepy not a good historian. No recent NSAID use or contrast studies. Review of Systems Constitutional: Reports as per HPI Past Medical History Past Medical History: Coronary Artery Disease (CAD), Cancer, Diabetes Mellitus, GERD/Reflux, Hyperlipidemia, Hypertension, Osteoarthritis (OA), Renal Disease Additional Past Medical History / Comment(s): USES A WALKER, LEG SWELLING, MURMUR, SINUS PROBLEMS, BENIGN POLYPS, INCONT OF URINE, PAST HX ANEMIA, "kidney function-3.5", severe aortic stenosis, patent foramen ovale. SKIN CANCER History of Any Multi-Drug Resistant Organisms: None Reported Past Surgical History: Heart Catheterization, Heart Catheterization With Stent Additional Past Surgical History / Comment(s): CATARACT SURGERY, COLONOSCOPY, bisi, TAVR 01/03/2018. "STENT IN [facility]". Past Anesthesia/Blood Transfusion Reactions: No Reported Reaction Date of Last Stent Placement:: January 03, 2018 Past Psychological History: No Psychological Hx Reported Smoking Status: Former smoker Past Alcohol Use History: None Reported Past Drug Use History: None Reported - Past Family History Mother Family Medical History: CVA/TIA, Diabetes Mellitus Father Family Medical History: Cancer, Coronary Artery Disease (CAD) Brother(s) Family Medical History: CVA/TIA, Diabetes Mellitus Sister(s) Family Medical History: Dementia Son(s) Family Medical History: No Reported History Daughter(s) Family Medical History: No Reported History Medications and Allergies Home Medications Medication Instructions Recorded Confirmed Type Potassium Chloride [K-Tab ER] 10 meq PO DAILY 06/23/14 09/06/20 History hydrALAZINE HCL [Apresoline] 50 mg PO TID 12/08/16 09/06/20 History Magnesium Oxide 400 mg PO DAILY 02/17/17 09/06/20 History glipiZIDE XL [Glucotrol XL] 10 mg PO AC-BID 11/17/17 09/06/20 History Famotidine [Pepcid] 20 mg PO DAILY #30 tab 11/23/17 09/06/20 Rx Apixaban [Eliquis] 2.5 mg PO BID 01/29/18 09/06/20 History Ascorbic Acid [Vitamin C] 500 mg PO DAILY 01/29/18 09/06/20 History Cholecalciferol [Vitamin D3] 800 unit PO DAILY 07/21/20 09/06/20 History Docusate [Colace] 200 mg PO DAILY 07/21/20 09/06/20 History lisinopriL [Zestril] 2.5 mg PO HS 07/21/20 09/06/20 History Furosemide [Lasix] 40 mg PO BID@0900,1600 tab 07/30/20 09/06/20 Rx Metoprolol Tartrate [Lopressor] 75 mg PO BID #60 tab 07/30/20 09/06/20 Rx traMADol HCl [Ultram] 50 mg PO QID #120 tab 07/30/20 09/06/20 Rx Acetaminophen [Tylenol] 650 mg PO Q4H PRN 09/06/20 09/06/20 History Aspirin 81 mg PO DAILY@0900 09/06/20 09/06/20 History Diltiazem HCl [Cardizem] 90 mg PO BID 09/06/20 09/06/20 History Lovastatin [Altoprev] 20 mg PO HS 09/06/20 09/06/20 History Multivitamins, Thera [Multivitamin 1 tab PO DAILY 09/06/20 09/06/20 History (formulary)] Polyethylene Glycol 3350 [Miralax] 17 gm PO DAILY 09/06/20 09/06/20 History Vitamin E 400 unit PO DAILY 09/06/20 09/06/20 History allopurinoL [Zyloprim] 150 mg PO DAILY 09/06/20 09/06/20 History hydrALAZINE HCL 25 mg PO TID 09/06/20 09/06/20 History Allergies Allergy/AdvReac Type Severity Reaction Status Date / Time cephalexin monohydrate Allergy Rash/Hives Verified 09/06/20 00:54 [From Keflex] rofecoxib [From Vioxx] Allergy Unknown Verified 09/06/20 00:54 doxycycline [From Vibramycin] AdvReac Nausea & Verified 09/06/20 00:54 Vomiting Physical Exam Vitals: Vital Signs Temp Pulse Resp BP Pulse Ox 09/06/20 16:50 97.1 F L 79 18 144/60 100 09/06/20 15:36 68 18 160/56 97 09/06/20 11:30 97.1 F L 67 18 135/95 100 09/06/20 04:53 98 F 09/06/20 04:52 70 18 160/56 97 09/06/20 03:00 70 16 131/48 99 09/06/20 00:39 97.0 F L 82 16 135/58 96 Intake and Output 09/06/20 09/06/20 09/06/20 06:59 14:59 22:59 Other: Voiding Method Toilet Weight 77.111 kg No acute distress S1-S2 heard Lungs clear Abdomen soft No edema Results - Lab Results Most recent lab results Calcium 9.0 mg/dL (8.4-10.2) 09/06/20 06:09 09/06/20 06:09 09/06/20 06:09 Assessment and Plan Assessment: #1 acute kidney injury suspect prerenal process with decreased by mouth intake. #2 hyperkalemia secondary to acute kidney injury/recent upper/potassium supplements. #3 chronic kidney disease stage III with a baseline creatinine of 1.4-1.7 MG per DL #4 complicated UTI #5 metabolic alkalosis Plan: #1 agree with holding potassium supplements/lisinopril/Lasix for now. #2 continue with normal saline at 75 ML's an hour. #3 check bladder scan, to rule out urinary retention. Renal ultrasound for size #4 strict ins and outs #5 avoid nephrotoxic agents and hypotensive episodes #6 labs in the morning
--- NOTE | 2020-09-06 18:32 | US ---
EXAMINATION TYPE: US kidneys/renal and bladder DATE OF EXAM: 09/06/2020 COMPARISON: 01/23/2016 CLINICAL HISTORY: hydronephrosis. EXAM MEASUREMENTS: Right Kidney: 8.8 x 4.2 x 4.4 cm Left Kidney: 9.1 x 5.4 x 5.4 cm Pre Void Residual Volume assessed for EC staff: 199.1 mL Right Kidney: lateral cortical cyst seen = 1.0 x 0.89 x 0.6cm; parapelvic cyst noted = 1.3 x 1.1 x 1. 1cm Left Kidney: prominent renal pelvis is noted; prominent Column of Vaibhav is noted mid pole. Bladder: wnl Bilateral Jets seen: yes Normal Post Void Residual: not assessed on EC patient IMPRESSION: No evidence of solid renal mass or obstruction. Mild renal cortical thinning. No adverse change lou red to old exam. Estimated bladder volume is 200 mL.
[2020-09-06] MEDS: APIXABAN 2.5 MG TABLET PO SCH (21:26)
[2020-09-06] MEDS: METOPROLOL TARTRATE 25 MG TAB PO SCH (22:39)
[2020-09-06] MEDS: DILTIAZEM ORAL 30 MG TAB PO SCH (22:39)
[2020-09-07] MEDS: PIPERACILLIN-TAZOBACTAM 3.375 GM in SODIUM CHLORIDE 0.9% 100 ML IVPB SCH ×2 (05:45→17:17)
[2020-09-07] MEDS: SODIUM CHLORIDE 0.9% 1,000 ML IV SCH ×2 (06:02→20:24)
--- NOTE | 2020-09-07 06:14 | CONS ---
CONSULTATION DATE OF SERVICE: 09/06/2020 REASON FOR CONSULTATION: Urinary tract infection. HISTORY OF PRESENT ILLNESS: The patient is an 84-year-old female who recently did have surgery on hip and subsequently the patient was completing therapy at [facility] and the patient went back to her apartment. The patient has been brought into the ER around midnight after apparently the patient was complaining of increasing confusion that was getting worse throughout the day. The patient pushed the alert button. Patient apparently did not have a good appetite and has not been eating or drinking. Has been complaining of burning of urination and abdominal discomfort and nausea but no vomiting. The patient denies having any chest pain, shortness of breath or cough and no diarrhea. On arrival to the ER, the patient was afebrile. The patient did have a normal white count with no lymphopenia. Did have elevated BUN and creatinine. The patient did have a positive UA with large leukocyte esterase and more than 1-2 WBCs. The patient did have a chest x- ray with mild cardiomegaly with slightly more prominent marking. The patient has been diagnosed with urinary tract infection. Patient started on Zosyn and admitted to the hospital. Infectious Disease was consulted for further management of antibiotic therapy. REVIEW OF SYSTEMS: Positive points have been mentioned in HPI. Rest of systems are negative. PAST MEDICAL HISTORY: Coronary artery disease, diabetes mellitus, gastroesophageal reflux disease, hypertension, hyperlipidemia, osteoarthritis. PAST SURGICAL HISTORY: PTCA with stent, cataract surgery, colonoscopy. SOCIAL HISTORY: Remote history of smoking. No drinking or drug use. FAMILY HISTORY: Mother with history of diabetes. Father with history of coronary artery disease and cancer. ALLERGIES: CEPHALEXIN, DOXYCYCLINE. MEDICATIONS: the patient is currently on Tylenol, Zyloprim, , vitamin C, Colace, Hydralazine, Lopressor, Narcan, Zosyn. PHYSICAL EXAMINATION: VITAL SIGNS: Her blood pressure is 116/42, pulse 70, temperature 97.6, she is 100% on 2 L nasal cannula. GENERAL DESCRIPTION. She is an elderly female lying in bed in no distress. No tachypnea or accessory muscles of respiration use. HEENT: Examination shows pallor, no scleral icterus. Oral mucous membranes are dry. No pharyngeal erythema or thrush. NECK: Trachea is central, no thyromegaly. LUNGS: Unlabored breathing, decreased breath sounds at bases. No wheeze or crackles. HEART: S1, S2. Regular rate and rhythm. ABDOMEN: Soft, no tenderness. No guarding or rigidity. EXTREMITIES: No edema of the feet SKIN: No rash or mass palpable. NEUROLOGICAL: Patient is awake, alert, oriented times two. Mood and affect normal. LABS: Hemoglobin 8.7, white count 9.2, BUN of 108, creatinine 2.93. Urine is positive. DIAGNOSTIC IMPRESSION: 1. Patient admitted to the hospital with generalized weakness which is multifactorial, possible dehydration. This patient is also complaining of urinary burning and concern for a symptomatic urinary tract infection, likely from gram-negative pathogen in this patient with recent hospital stays and subsequently assisted. Will need to cover for the resistant gram-negative with likely pathogen. 2. Patient's CEFAZOLIN ALLERGY will limit the number of antibiotics safe to use. PLAN: 1. Will keep the patient on Zosyn started by the ER physician. 2. IV fluids. 3. We will follow on clinical condition and culture to further adjust medication if needed. Thank you for this consultation. Will follow this patient along with you. MMODL / IJN: [id number] /
--- NOTE | 2020-09-07 07:44 | P.PN ---
Progress Note - Text Progress Note Date: 09/07/20 Images reviewed. No interval changes to pelvis or R hip. Hardware in place and stable. Pt OK for WBAT with assist. Follow up in office at regularly scheduled appt.
[2020-09-07 10:12] LABS: African American GFR (CKD) 31.3 (60.0-200.0); Anion Gap 6.7 mmol/L (4.00-12.00); BUN/Creat Ratio 43.53 Ratio (12.00-20.00); Calcium 8.7 mg/dL (8.7-10.3); Carbon Dioxide 26.3 mmol/L (21.6-31.8); Magnesium 2.7 mg/dL (1.5-2.4); Potassium 4.1 mmol/L (3.5-5.5)
[2020-09-07] MEDS: ASCORBIC ACID 500 MG TAB PO SCH (10:54)
[2020-09-07] MEDS: METOPROLOL TARTRATE 25 MG TAB PO SCH ×2 (10:54→21:49)
[2020-09-07] MEDS: hydrALAZINE HCL 25 MG TAB PO SCH ×3 (10:54→21:49)
[2020-09-07] MEDS: allopurinoL 100 MG TAB PO SCH (10:55)
[2020-09-07] MEDS: ASPIRIN 81 MG PO SCH (10:55)
[2020-09-07] MEDS: DOCUSATE 100 MG CAP PO SCH (10:55)
[2020-09-07] MEDS: FAMOTIDINE 20 MG TAB PO SCH (10:55)
[2020-09-07] MEDS: APIXABAN 2.5 MG TABLET PO SCH ×2 (10:55→21:49)
[2020-09-07 11:12] LABS: Glucose,Whole Blood 40 mg/dL (75-99)
[2020-09-07 11:41] LABS: Glucose,Whole Blood 88 mg/dL (75-99)
[2020-09-07] MEDS: CHOLECALCIFEROL 400 UNIT TAB PO SCH (13:11)
[2020-09-07] MEDS: DILTIAZEM ORAL 30 MG TAB PO SCH ×2 (13:13→22:09)
[2020-09-07 16:25] LABS: Glucose,Whole Blood 35 mg/dL (75-99)
[2020-09-07] MEDS ORDERED: DEXTROSE 50% SYRINGE 50 ML IVP STA (16:25)
[2020-09-07] MEDS ORDERED: DEXTROSE 50% SYRINGE 50 ML IVP ONE (16:28)
--- NOTE | 2020-09-07 16:28 | P.PN ---
Subjective Progress Note Date: 09/07/20 Follow-up for acute kidney injury. Objective - Vital Signs Vital signs: Vital Signs Temp 98.3 F 09/07/20 12:00 Pulse 81 09/07/20 13:14 Resp 16 09/07/20 13:14 BP 124/56 09/07/20 12:00 Pulse Ox 96 09/07/20 12:00 Intake & Output 09/06/20 09/07/20 09/07/20 18:59 06:59 18:59 Output Total 42 Balance -42 Output: Post Void Residual 42 Other: Voiding Method Toilet # Voids 3 2 0 - Exam Exam limited secondary to covid-19 pandemic and to limit PPE - Labs CBC & Chem 7: 09/06/20 06:09 09/07/20 06:02 Labs: Abnormal Lab Results - Last 24 Hours (Table) 09/07/20 09/07/20 Range/Units 06:02 11:11 BUN 74.0 H (9.0-27.0) mg/dL Creatinine 1.7 H (0.6-1.5) mg/dL Est GFR (CKD-EPI)AfAm 31.3 L (60.0-200.0) Est GFR (CKD-EPI)NonAf 27.0 L (60.0-200.0) BUN/Creatinine Ratio 43.53 H (12.00-20.00) Ratio Glucose 28 L* (70-110) mg/dL POC Glucose (mg/dL) 40 L (75-99) mg/dL Magnesium 2.7 H (1.5-2.4) mg/dL Microbiology - Last 24 Hours (Table) 09/06/20 01:08 Urine Culture - Preliminary Urine,Catheterized Group D Enterococcus Assessment and Plan Assessment: #1 acute kidney injury suspect prerenal process with decreased by mouth intake. #2 hyperkalemia secondary to acute kidney injury/recent upper/potassium supplements. #3 chronic kidney disease stage III with a baseline creatinine of 1.4-1.7 MG per DL #4 complicated UTI #5 metabolic alkalosis #6 hypoglycemic episodes Plan: #1 agree with holding potassium supplements/lisinopril/Lasix for now. Creatinine close to baseline. #2 continue with normal saline at 75 ML's an hour. #3 strict ins and outs #4 avoid nephrotoxic agents and hypotensive episodes #5 Antibiotics per infectious disease
[2020-09-07 16:52] LABS: Glucose,Whole Blood 178 mg/dL (75-99)
[2020-09-07 17:34] LABS: Glucose,Whole Blood 166 mg/dL (75-99)
[2020-09-07] MEDS: DEXTROSE 10% IN WATER 1,000 ML with SODIUM CHLORIDE 2.5MEQ/ML VIAL 153.8 MEQ IV SCH (20:26)
[2020-09-07 20:43] LABS: Glucose,Whole Blood 57 mg/dL (75-99)
[2020-09-07 20:57] LABS: Glucose,Whole Blood 49 mg/dL (75-99)
[2020-09-07 21:20] LABS: Glucose,Whole Blood 123 mg/dL (75-99)
--- NOTE | 2020-09-07 22:15 | P.PN ---
Subjective This is a pleasant 84 years old female with multiple medical problems as below. She is a patient of Dr. Bose. She was recently this hospital for hip fracture, and A. fib with RVR. At that time she had postop hypotension and respiratory failure he needed intubation for one-day. She was evaluated by food and beverage checker and orthopedic and sent to [facility] for rehab She presents because of increasing confusion and loss of appetite. She was recently discharged from her rehab at [facility] back to home where slowly and gradually started to get worse and deteriorates. Patient is currently more awake, she complains from mild suprapubic tenderness with no significant dysuria Vitas looks stable Urine analysis is turbid and suspicious for infection. WBC is 9.2K, hemoglobin 8.7, platelets is 380 K. Lowe sodium 124, improved to 1:30, hypertensive 6.4, came back to normal 5.1. Creatinine 2.9 came back to 2.7, baseline is 1.4-1.6 Liver enzymes not elevated. Chest x-ray possible mild CHF. EKG showing normal sinus rhythm at [address]-T changes and QTC 478. In the emergency room patient was started on Zosyn 09/08/2020 Patient today was easily arousable but confused and go back to sleep, her glucose was running low a 28 in the morning, patient was placed on D5W and distal was running low so it was changed to D10W at 30 mL per hour with injections of D50%, her sugar is better now. We will keep a close monitoring for her hypoglycemic episodes. Most likely these hypoglycemic episodes are due to sepsis secondary to urinary tract infection, urine culture is growing group D enterococci, final sensitivities pending. I will consult infectious disease for further recommendation about the antibiotic. Patient is currently on Zosyn. Orthopedic team on the case Review of Systems: n/a Active Medications Generic Name Dose Route Start Last Admin Trade Name Freq PRN Reason Stop Dose Admin Acetaminophen 650 mg 09/06/20 03:00 Acetaminophen Tab 325 Mg Tab PO Q6HR PRN Mild Pain or Fever > 100.5 Allopurinol 100 mg 09/07/20 09:00 09/07/20 10:55 Allopurinol 100 Mg Tab PO 100 mg DAILY OLIVIA Administration Apixaban 2.5 mg 09/06/20 21:00 09/07/20 21:49 Apixaban 2.5 Mg Tablet PO 2.5 mg BID [facility] Administration Ascorbic Acid 500 mg 09/07/20 09:00 09/07/20 10:54 Ascorbic Acid 500 Mg Tab PO 500 mg DAILY [facility] Administration Aspirin 81 mg 09/07/20 09:00 09/07/20 10:55 Aspirin 81 Mg PO 81 mg DAILY@0900 OLIVIA Administration Cholecalciferol 800 unit 09/07/20 09:00 09/07/20 13:11 Cholecalciferol 400 Unit Tab PO Not Given DAILY [facility] Diltiazem HCl 90 mg 09/06/20 21:00 09/07/20 13:13 Diltiazem Oral 30 Mg Tab PO Not Given BID [facility] Docusate Sodium 200 mg 09/07/20 09:00 09/07/20 10:55 Docusate 100 Mg Cap PO 200 mg DAILY [facility] Administration Famotidine 20 mg 09/07/20 09:00 09/07/20 10:55 Famotidine 20 Mg Tab PO 20 mg DAILY [facility] Administration Hydralazine HCl 75 mg 09/06/20 16:00 09/07/20 21:49 Hydralazine Hcl 25 Mg Tab PO 75 mg TID [facility] Administration Sodium Chloride 1,000 mls @ 75 mls/hr 09/06/20 02:45 09/07/20 20:24 Saline 0.9% IV Not Given .[id number] [facility] Piperacillin Sod/Tazobactam 100 mls @ 25 mls/hr 09/06/20 17:00 09/07/20 17:17 Sod 3.375 gm/ Sodium Chloride IVPB 25 mls/hr Q12H [facility] Administration Sodium Chloride 153.8 meq/ 1,061.52 mls @ 30 mls/hr 09/07/20 19:00 09/07/20 20:26 Dextrose/Water IV 30 mls/hr .Q24H [facility] Administration Metoprolol Tartrate 75 mg 09/06/20 21:00 09/07/20 21:49 Metoprolol Tartrate 25 Mg Tab PO 75 mg BID [facility] Administration Naloxone HCl 0.2 mg 09/06/20 03:00 Naloxone 0.4 Mg/Ml 1 Ml Vial IV Q2M PRN Opioid Reversal Ondansetron HCl 4 mg 09/06/20 03:00 Ondansetron 4 Mg/2 Ml Vial IVP Q8HR PRN Nausea And Vomiting Objective - Vital Signs Vital signs: Vital Signs Temp 98.3 F 09/07/20 12:00 Pulse 81 09/07/20 13:14 Resp 16 09/07/20 13:14 BP 124/56 09/07/20 12:00 Pulse Ox 96 09/07/20 12:00 Intake & Output 09/06/20 09/07/20 09/07/20 18:59 06:59 18:59 Intake Total 120 Output Total 42 Balance 78 Intake: Oral 120 Output: Post Void Residual 42 Other: Voiding Method Toilet # Voids 3 2 3 - Exam -GENERAL: The patient is confused and drowsy secondary to hypoglycemia HEENT: Pupils are round and equally reacting to light. EOMI. No scleral icterus. No conjunctival pallor. Normocephalic, atraumatic. No pharyngeal erythema. No thyromegaly. CARDIOVASCULAR: S1 and S2 present. No murmurs, rubs, or gallops. PULMONARY: Chest is clear to auscultation, no wheezing or crackles. ABDOMEN: Soft, nontender, nondistended, normoactive bowel sounds. No palpable organomegaly. MUSCULOSKELETAL: No joint swelling or deformity. EXTREMITIES: No cyanosis, clubbing, or pedal edema. NEUROLOGICAL: Gross neurological examination did not reveal any focal deficits. SKIN: No rashes. no petechiae. - Labs CBC & Chem 7: 09/06/20 06:09 09/07/20 06:02 Labs: Abnormal Lab Results - Last 24 Hours (Table) 09/07/20 09/07/20 09/07/20 Range/Units 06:02 11:11 16:23 BUN 74.0 H (9.0-27.0) mg/dL Creatinine 1.7 H (0.6-1.5) mg/dL Est GFR (CKD-EPI)AfAm 31.3 L (60.0-200.0) Est GFR (CKD-EPI)NonAf 27.0 L (60.0-200.0) BUN/Creatinine Ratio 43.53 H (12.00-20.00) Ratio Glucose 28 L* (70-110) mg/dL POC Glucose (mg/dL) 40 L 35 L (75-99) mg/dL Magnesium 2.7 H (1.5-2.4) mg/dL 09/07/20 09/07/20 Range/Units 16:49 17:28 BUN (9.0-27.0) mg/dL Creatinine (0.6-1.5) mg/dL Est GFR (CKD-EPI)AfAm (60.0-200.0) Est GFR (CKD-EPI)NonAf (60.0-200.0) BUN/Creatinine Ratio (12.00-20.00) Ratio Glucose (70-110) mg/dL POC Glucose (mg/dL) 178 H 166 H (75-99) mg/dL Magnesium (1.5-2.4) mg/dL Microbiology - Last 24 Hours (Table) 09/06/20 01:08 Urine Culture - Preliminary Urine,Catheterized Group D Enterococcus Assessment and Plan Assessment: recurrent Acute urinary tract infection , secondary to group D enterococci acute kidney injury, mostly prerenal secondary to dehydration , improved Hypoglycemia, continue with with glucose replacement and close monitoring Metabolic encephalopathy secondary to above Status post fall and right hip fracture status post surgical reproduction A. fib with RVR, currently rate controlled Chronic kidney disease stage III severe aortic stenosis Hypertension Hyperlipidemia Osteoarthritis 2 diabetes mellitus History of coronary artery disease, status post stent placement Plan: This is a pleasant 84 years old male who presents with UTI and AK I. continue with gentle hydration, continue with Zosyn. Consult infectious disease Labs and medication were reviewed.. Continue same treatment. Continue with symptomatic treatment. Resume home medication. Monitor lytes and vitals. DVT and GI prophylaxis. Further recommendations depends on the clinical course of the patient DVT prophylaxis: Subcutaneous heparin GI Prophylaxis: Pepcid PT/OT: Pending Prognosis is guarded Dr. Bose will resume the care of the patient on Tuesday
[2020-09-08] MEDS: AMPICILLIN-SULBACTAM 3 GM in SODIUM CHLORIDE 0.9% 100 ML IVPB SCH ×3 (00:10→21:08)
[2020-09-08 02:16] LABS: Glucose,Whole Blood 40 mg/dL (75-99)
[2020-09-08 02:16] LABS: Glucose,Whole Blood 46 mg/dL (75-99)
[2020-09-08 02:31] LABS: Glucose,Whole Blood 67 mg/dL (75-99)
[2020-09-08 02:46] LABS: Glucose,Whole Blood 110 mg/dL (75-99)
--- NOTE | 2020-09-08 05:53 | PN ---
PROGRESS NOTE DATE OF SERVICE: 09/07/2020 REASON FOR FOLLOWUP: 1. Urinary tract infection. 2. Right heel stage II pressure ulcer. INTERVAL HISTORY: Patient is currently afebrile. The patient denies having any chest pain. No shortness of breath or cough. Overall slightly weak. No vomiting or diarrhea has been reported. PHYSICAL EXAMINATION: Blood pressure 158/63 with a pulse of 87, temperature 97.9, she is 100% on room air. General description is an elderly female lying in bed in no distress. Respiratory system: Unlabored breathing, decreased breath sounds in the base, with no wheeze. Heart S1, S2. Regular rate and rhythm. Abdomen is soft, no tenderness. LABS: Urine culture is showing group D Enterococcus. DIAGNOSTIC IMPRESSION AND PLAN: 1. Patient with group D Enterococcus urinary tract infection. This patient's antibiotic will be switched over to Unasyn as no gram negative has been seen. 2. Patient with a right heel wound. Local care with a protective dressing and heel protector. Continue supportive care. MMODL / IJN: [id number] /
[2020-09-08 07:03] LABS: Glucose,Whole Blood 43 mg/dL (75-99)
[2020-09-08 07:35] LABS: Glucose,Whole Blood 82 mg/dL (75-99)
[2020-09-08] MEDS: FAMOTIDINE 20 MG TAB PO SCH (08:07)
[2020-09-08] MEDS: METOPROLOL TARTRATE 25 MG TAB PO SCH ×2 (08:07→21:06)
[2020-09-08] MEDS: hydrALAZINE HCL 25 MG TAB PO SCH ×3 (08:08→21:06)
[2020-09-08] MEDS: DOCUSATE 100 MG CAP PO SCH (08:08)
[2020-09-08] MEDS: ASPIRIN 81 MG PO SCH (08:08)
[2020-09-08] MEDS: ASCORBIC ACID 500 MG TAB PO SCH (08:08)
[2020-09-08] MEDS: APIXABAN 2.5 MG TABLET PO SCH ×2 (08:08→21:06)
[2020-09-08] MEDS: allopurinoL 100 MG TAB PO SCH (08:09)
[2020-09-08] MEDS: DILTIAZEM ORAL 30 MG TAB PO SCH ×2 (08:09→21:06)
[2020-09-08] MEDS: CHOLECALCIFEROL 400 UNIT TAB PO SCH (10:08)
--- NOTE | 2020-09-08 11:30 | P.PN ---
Subjective Patient is seen in follow-up for acute kidney injury on chronic kidney disease. Renal function improving since admission. Creatinine 1.7 as of yesterday. Normal saline has been discontinued. She is now on D10 due to low blood sugar this morning. Denies chest pain or shortness of breath. Oral intake fair. Vital signs are stable. General: The patient appeared well nourished and normally developed. HEENT: Head exam is unremarkable. Neck is without jugular venous distension. LUNGS: Breath sounds decreased. HEART: Rate and Rhythm are regular. ABDOMEN: Soft, nontender. EXTREMITITES: No edema. Objective - Vital Signs Vital signs: Vital Signs Temp 98.7 F 09/08/20 08:00 Pulse 78 09/08/20 08:00 Resp 17 09/08/20 08:00 BP 173/66 09/08/20 08:00 Pulse Ox 96 09/08/20 08:00 Intake & Output 09/07/20 09/08/20 09/08/20 18:59 06:59 18:59 Intake Total 120 650 Output Total 42 Balance 78 650 Weight 63.5 kg Intake: Oral 120 650 Output: Post Void Residual 42 Other: Voiding Method Toilet Toilet Toilet # Voids 3 2 # Bowel Movements 1 - Labs CBC & Chem 7: 09/06/20 06:09 09/07/20 06:02 Labs: Abnormal Lab Results - Last 24 Hours (Table) 09/07/20 09/07/20 09/07/20 Range/Units 06:02 16:23 16:49 Glucose 28 L* (70-110) mg/dL POC Glucose (mg/dL) 35 L 178 H (75-99) mg/dL 09/07/20 09/07/20 09/07/20 Range/Units 17:28 20:42 20:56 Glucose (70-110) mg/dL POC Glucose (mg/dL) 166 H 57 L 49 L (75-99) mg/dL 09/07/20 09/08/20 09/08/20 Range/Units 21:19 02:11 02:14 Glucose (70-110) mg/dL POC Glucose (mg/dL) 123 H 40 L 46 L (75-99) mg/dL 09/08/20 09/08/20 09/08/20 Range/Units 02:26 02:44 06:57 Glucose (70-110) mg/dL POC Glucose (mg/dL) 67 L 110 H 43 L (75-99) mg/dL 09/08/20 Range/Units 06:57 Glucose (70-110) mg/dL POC Glucose (mg/dL) 43 L (75-99) mg/dL Microbiology - Last 24 Hours (Table) 09/06/20 01:08 Urine Culture - Preliminary Urine,Catheterized Group D Enterococcus Assessment and Plan Plan: Assessment: 1. Acute kidney injury mostly prerenal from poor intake, improved with IV hydration. Creatinine 1.7 as of yesterday. 2. Chronic kidney disease stage III with baseline creatinine near 1.2-1.7. 3. Hyperkalemia secondary to acute kidney injury and potassium supplementation. Improved. 4. Enterococcus UTI maintained on antibiotics. 5. Diabetes mellitus. Plan: Off IV fluids. Encourage oral intake. Monitor blood sugars. Avoid nephrotoxins. Continue to monitor renal function and urine output.
[2020-09-08 11:54] LABS: Glucose,Whole Blood 61 mg/dL (75-99)
[2020-09-08 12:21] LABS: Glucose,Whole Blood 78 mg/dL (75-99)
[2020-09-08] MEDS: SODIUM CHLORIDE 0.9% 1,000 ML IV SCH ×2 (12:58→21:54)
[2020-09-08 13:19] VITALS: BMI 24.7
[2020-09-08 17:21] LABS: Glucose,Whole Blood 119 mg/dL (75-99)
[2020-09-08 20:00] LABS: Glucose,Whole Blood 132 mg/dL (75-99)
[2020-09-08] MEDS: DEXTROSE 10% IN WATER 1,000 ML with SODIUM CHLORIDE 2.5MEQ/ML VIAL 153.8 MEQ IV SCH (21:53)
--- NOTE | 2020-09-08 23:13 | P.PN ---
Subjective Progress Note Date: 09/08/20 Principal diagnosis: Continuing CARE with renal failure and UTI This is a history and physical on an 84-year-old white female with history of breast or failure and the need for intubation recently after having hip fracture. The patient had significant confusion and she was received discharged from rehab. UTI is noted and she is essentially admitted for acute on chronic renal failure. She seems more alert than described of the weekend. Objective - Vital Signs Vital signs: Vital Signs Temp 98.6 F 09/08/20 20:00 Pulse 75 09/08/20 20:00 Resp 20 09/08/20 20:00 BP 166/56 09/08/20 20:00 Pulse Ox 95 09/08/20 20:00 Intake & Output 09/08/20 09/08/20 09/09/20 06:59 18:59 06:59 Intake Total 650 1040 Balance 650 1040 Weight 63.5 kg 63.5 kg Intake: Intake, IV Titration 460 Amount Ampicillin-Sulbactam 3 gm 100 In Sodium Chloride 0.9% 100 ml @ 200 mls/hr IVPB Q12HR OLIVIA Rx#:[id number] Dextrose 10% in Water 1, 360 000 ml @ 30 mls/hr IV . Q24H OLIVIA with Sodium Chloride 2.5MEQ/ml Vial 153.8 meq Rx#:[id number] Oral 650 580 Other: Voiding Method Toilet Toilet # Voids 2 1 # Bowel Movements 1 1 - Constitutional General appearance: Present: average body habitus - EENT Eyes: Absent: abnormal pupil - Neck Neck: Absent: lymphadenopathy - Respiratory Respiratory: bilateral: CTA - Cardiovascular Rhythm: irregularly irregular Heart sounds: normal: S1, S2 Abnormal Heart Sounds: Absent: S3 Gallop - Gastrointestinal General gastrointestinal: Present: soft. Absent: tenderness - Integumentary Integumentary: Absent: cellulitis - Musculoskeletal Musculoskeletal: Present: generalized weakness - Psychiatric Psychiatric: Present: appropriate affect - Labs CBC & Chem 7: 09/06/20 06:09 09/07/20 06:02 Labs: Abnormal Lab Results - Last 24 Hours (Table) 09/07/20 09/08/20 09/08/20 Range/Units 06:02 02:11 02:14 Glucose 28 L* (70-110) mg/dL POC Glucose (mg/dL) 40 L 46 L (75-99) mg/dL 09/08/20 09/08/20 09/08/20 Range/Units 02:26 02:44 06:57 Glucose (70-110) mg/dL POC Glucose (mg/dL) 67 L 110 H 43 L (75-99) mg/dL 09/08/20 09/08/20 09/08/20 Range/Units 06:57 11:51 17:18 Glucose (70-110) mg/dL POC Glucose (mg/dL) 43 L 61 L 119 H (75-99) mg/dL 09/08/20 Range/Units 19:57 Glucose (70-110) mg/dL POC Glucose (mg/dL) 132 H (75-99) mg/dL Microbiology - Last 24 Hours (Table) 09/06/20 01:08 Urine Culture - Final Urine,Catheterized Enterococcus faecalis Assessment and Plan (1) Acute on chronic renal failure Current Visit: Yes Status: Acute Code(s): N17.9 - ACUTE KIDNEY FAILURE, UNSPECIFIED; N18.9 - CHRONIC KIDNEY DISEASE, UNSPECIFIED SNOMED Code(s): 599892680 (2) Urinary tract infection Current Visit: Yes Status: Acute Code(s): N39.0 - URINARY TRACT INFECTION, SITE NOT SPECIFIED SNOMED Code(s): 68587432 (3) Acute renal injury Current Visit: No Status: Acute Code(s): N17.9 - ACUTE KIDNEY FAILURE, UNSPECIFIED SNOMED Code(s): 87106812 (4) History of atrial fibrillation Current Visit: No Status: Chronic Code(s): Z86.79 - PERSONAL HISTORY OF OTHER DISEASES OF THE CIRCULATORY SYSTEM SNOMED Code(s): 677787076 (5) History of hypertension Current Visit: No Status: Chronic Code(s): Z86.79 - PERSONAL HISTORY OF OTHER DISEASES OF THE CIRCULATORY SYSTEM SNOMED Code(s): 068863153 (6) Tobacco dependence in remission Current Visit: No Status: Resolved Code(s): F17.201 - NICOTINE DEPENDENCE, UNSPECIFIED, IN REMISSION SNOMED Code(s): 357431120 Plan: We will continue to gingerly IV hydrate. Watch mental status closely. Check CMP in a.m. Hopefully, as she slowly improves, we can discharge the next 24-48 hours Time with Patient: Greater than 30
[2020-09-09 01:47] LABS: Glucose,Whole Blood 200 mg/dL (75-99)
--- NOTE | 2020-09-09 02:12 | PN ---
PROGRESS NOTE DATE OF SERVICE: 09/08/2020 REASON FOR FOLLOWUP: Enterococcus faecalis urinary tract infection. INTERVAL HISTORY: The patient is currently afebrile. She is more awake, alert, breathing comfortably. No chest pain or cough. No abdominal pain or diarrhea. PHYSICAL EXAMINATION: Blood pressure 166/56, pulse of 75, temperature 98.6. She is 95% on room air. General description is an elderly female lying in bed in no distress. RESPIRATORY SYSTEM: Unlabored breathing, decreased breath sounds at the bases. No wheeze. HEART: S1, S2. Regular rate and rhythm. ABDOMEN: Soft, no tenderness. LABS: Urine with Enterococcus faecalis. DIAGNOSTIC IMPRESSION AND PLAN: Patient with Enterococcus faecalis urinary tract infection currently on Unasyn to continue finishing therapy with oral Augmentin. Continue with supportive care. MMODL / IJN: [id number] /
[2020-09-09 07:04] LABS: Glucose,Whole Blood 252 mg/dL (75-99)
[2020-09-09 08:09] LABS: Anisocytosis Slight; HCT 22.8 % (34.0-46.0); MCHC 31.3 g/dL (31.0-37.0); MCV 95.8 fL (80.0-100.0); Macrocytosis Slight; Mean Platelet Volume 7.6; Platelet Count 351 k/uL (150-450); RBC 2.38 m/uL (3.80-5.40); RDW 16.8 % (11.5-15.5); WBC 7.9 k/uL (3.8-10.6)
[2020-09-09 08:14] LABS: HGB 7.1 gm/dL (11.4-16.0)
[2020-09-09] MEDS: FAMOTIDINE 20 MG TAB PO SCH (08:37)
[2020-09-09] MEDS: DOCUSATE 100 MG CAP PO SCH (08:37)
[2020-09-09] MEDS: APIXABAN 2.5 MG TABLET PO SCH ×2 (08:37→21:43)
[2020-09-09] MEDS: CHOLECALCIFEROL 400 UNIT TAB PO SCH (08:37)
[2020-09-09] MEDS: METOPROLOL TARTRATE 25 MG TAB PO SCH ×2 (08:38→21:43)
[2020-09-09] MEDS: hydrALAZINE HCL 25 MG TAB PO SCH ×3 (08:38→21:43)
[2020-09-09] MEDS: AMPICILLIN-SULBACTAM 3 GM in SODIUM CHLORIDE 0.9% 100 ML IVPB SCH ×2 (08:38→21:43)
[2020-09-09] MEDS: ASCORBIC ACID 500 MG TAB PO SCH (08:38)
[2020-09-09] MEDS: allopurinoL 100 MG TAB PO SCH (08:38)
[2020-09-09] MEDS: DILTIAZEM ORAL 30 MG TAB PO SCH ×2 (08:38→21:43)
[2020-09-09] MEDS: ASPIRIN 81 MG PO SCH (08:38)
[2020-09-09] MEDS: SODIUM CHLORIDE 0.9% 1,000 ML IV SCH (10:47)
--- NOTE | 2020-09-09 10:53 | P.PN ---
Subjective Patient is seen in follow-up for acute kidney injury on chronic kidney disease. Renal function improving since admission. Morning labs pending. Normal saline has been discontinued. She is still on D10 due to low blood sugars - blood sugar 252 this morning. Denies chest pain or shortness of breath. Oral intake fair. Vital signs are stable. General: The patient appeared well nourished and normally developed. HEENT: Head exam is unremarkable. Neck is without jugular venous distension. LUNGS: Breath sounds decreased. HEART: Rate and Rhythm are regular. ABDOMEN: Soft, nontender. EXTREMITITES: No edema. Objective - Vital Signs Vital signs: Vital Signs Temp 97.9 F 09/09/20 07:43 Pulse 78 09/09/20 07:43 Resp 17 09/09/20 07:43 BP 154/58 09/09/20 07:43 Pulse Ox 97 09/09/20 07:43 Intake & Output 09/08/20 09/09/20 09/09/20 18:59 06:59 18:59 Intake Total 1040 1010 Balance 1040 1010 Weight 63.5 kg 65 kg Intake: Intake, IV Titration 460 360 Amount Ampicillin-Sulbactam 3 gm 100 In Sodium Chloride 0.9% 100 ml @ 200 mls/hr IVPB Q12HR [facility] Rx#:[id number] Dextrose 10% in Water 1, 360 360 000 ml @ 30 mls/hr IV . Q24H OLIVIA with Sodium Chloride 2.5MEQ/ml Vial 153.8 meq Rx#:[id number] Oral 580 650 Other: Voiding Method Toilet Toilet # Voids 1 2 # Bowel Movements 1 1 - Labs CBC & Chem 7: 09/09/20 07:23 09/07/20 06:02 Labs: Abnormal Lab Results - Last 24 Hours (Table) 09/08/20 09/08/20 09/08/20 Range/Units 11:51 17:18 19:57 RBC (3.80-5.40) m/uL Hgb (11.4-16.0) gm/dL Hct (34.0-46.0) % RDW (11.5-15.5) % POC Glucose (mg/dL) 61 L 119 H 132 H (75-99) mg/dL 12/01/20 12/01/20 12/01/20 Range/Units 01:46 07:03 07:23 RBC 2.38 L (3.80-5.40) m/uL Hgb 7.1 L D (11.4-16.0) gm/dL Hct 22.8 L (34.0-46.0) % RDW 16.8 H (11.5-15.5) % POC Glucose (mg/dL) 200 H 252 H (75-99) mg/dL Microbiology - Last 24 Hours (Table) 09/06/20 01:08 Urine Culture - Final Urine,Catheterized Enterococcus faecalis Assessment and Plan Plan: Assessment: 1. Acute kidney injury mostly prerenal from poor intake, improved with IV hydration. Creatinine 1.7 as of 09/08. 2. Chronic kidney disease stage III with baseline creatinine near 1.2-1.7. 3. Hyperkalemia secondary to acute kidney injury and potassium supplementation. Improved. 4. Enterococcus UTI maintained on antibiotics. 5. Diabetes mellitus. 6. Acute anemia. Likely component of chronic kidney disease. Rule out iron deficiency and GIB. Plan: Stop D10. Encourage oral intake. Monitor blood sugars. Avoid nephrotoxins. Continue to monitor renal function and urine output. Morning labs pending. Check iron studies. Stool for occult blood pending. Defer to primary team for further management.
[2020-09-09 11:14] LABS: Glucose,Whole Blood 270 mg/dL (75-99)
[2020-09-09 11:48] LABS: African American GFR (CKD) 47.7 (60.0-200.0); Albumin 2.8 g/dL (3.80-4.90); Albumin/Globulin Ratio 1.56 (1.60-3.17); Anion Gap 7.6 mmol/L (4.00-12.00); BUN/Creat Ratio 27.5 Ratio (12.00-20.00); Calcium 8.4 mg/dL (8.7-10.3); Carbon Dioxide 23.4 mmol/L (21.6-31.8); Globulin 1.8 g/dL (1.6-3.3); Non-African American GFR(CKD) 41.2 (60.0-200.0); Potassium 4.2 mmol/L (3.5-5.5); Total Bilirubin 0.2 mg/dL (0.2-1.2); Total Protein 4.6 g/dL (6.2-8.2)
[2020-09-09] MEDS: DEXTROSE 10% IN WATER 1,000 ML with SODIUM CHLORIDE 2.5MEQ/ML VIAL 153.8 MEQ IV SCH (11:48)
--- NOTE | 2020-09-09 13:07 | P.PN ---
Subjective Principal diagnosis: Continuing CARE with renal failure and UTI This is a history and physical on an 84-year-old white female with history of breast or failure and the need for intubation recently after having hip fracture. The patient had significant confusion and she was received discharged from rehab. UTI is noted and she is essentially admitted for acute on chronic renal failure. She seems more alert than described of the weekend. CBC this morning has showed acute anemia. I do suspect this could be related to her renal failure. But we will follow closely and check stool guaiac today. Objective - Vital Signs Vital signs: Vital Signs Temp 97.9 F 09/09/20 11:39 Pulse 64 09/09/20 11:39 Resp 17 09/09/20 11:39 BP 139/51 09/09/20 11:39 Pulse Ox 94 L 09/09/20 11:39 Intake & Output 09/08/20 09/09/20 09/09/20 18:59 06:59 18:59 Intake Total 1040 1010 480 Balance 1040 1010 480 Weight 63.5 kg 65 kg Intake: Intake, IV Titration 460 360 Amount Ampicillin-Sulbactam 3 gm 100 In Sodium Chloride 0.9% 100 ml @ 200 mls/hr IVPB Q12HR OLIVIA Rx#:[id number] Dextrose 10% in Water 1, 360 360 000 ml @ 30 mls/hr IV . Q24H OLIVIA with Sodium Chloride 2.5MEQ/ml Vial 153.8 meq Rx#:[id number] Oral 580 650 480 Other: Voiding Method Toilet Toilet Toilet # Voids 1 2 # Bowel Movements 1 1 - Constitutional General appearance: Present: average body habitus - EENT Eyes: Absent: abnormal pupil - Neck Neck: Absent: lymphadenopathy - Respiratory Respiratory: bilateral: CTA - Cardiovascular Rhythm: regular Heart sounds: normal: S1, S2 Abnormal Heart Sounds: Absent: S3 Gallop - Gastrointestinal General gastrointestinal: Present: soft. Absent: tenderness - Psychiatric Psychiatric: Present: A&O x's 3, appropriate affect - Labs CBC & Chem 7: 09/09/20 07:23 09/09/20 07:23 Labs: Abnormal Lab Results - Last 24 Hours (Table) 09/08/20 09/08/20 09/09/20 Range/Units 17:18 19:57 01:46 RBC (3.80-5.40) m/uL Hgb (11.4-16.0) gm/dL Hct (34.0-46.0) % RDW (11.5-15.5) % BUN (9.0-27.0) mg/dL Est GFR (CKD-EPI)AfAm (60.0-200.0) Est GFR (CKD-EPI)NonAf (60.0-200.0) BUN/Creatinine Ratio (12.00-20.00) Ratio Glucose (70-110) mg/dL POC Glucose (mg/dL) 119 H 132 H 200 H (75-99) mg/dL Calcium (8.7-10.3) mg/dL Total Protein (6.2-8.2) g/dL Albumin (3.80-4.90) g/dL Albumin/Globulin Ratio (1.60-3.17) g/dL 09/09/20 09/09/20 09/09/20 Range/Units 07:03 07:23 07:23 RBC 2.38 L (3.80-5.40) m/uL Hgb 7.1 L D (11.4-16.0) gm/dL Hct 22.8 L (34.0-46.0) % RDW 16.8 H (11.5-15.5) % BUN 33.0 H (9.0-27.0) mg/dL Est GFR (CKD-EPI)AfAm 47.7 L (60.0-200.0) Est GFR (CKD-EPI)NonAf 41.2 L (60.0-200.0) BUN/Creatinine Ratio 27.50 H (12.00-20.00) Ratio Glucose 219 H (70-110) mg/dL POC Glucose (mg/dL) 252 H (75-99) mg/dL Calcium 8.4 L (8.7-10.3) mg/dL Total Protein 4.6 L (6.2-8.2) g/dL Albumin 2.80 L (3.80-4.90) g/dL Albumin/Globulin Ratio 1.56 L (1.60-3.17) g/dL 09/09/20 Range/Units 11:12 RBC (3.80-5.40) m/uL Hgb (11.4-16.0) gm/dL Hct (34.0-46.0) % RDW (11.5-15.5) % BUN (9.0-27.0) mg/dL Est GFR (CKD-EPI)AfAm (60.0-200.0) Est GFR (CKD-EPI)NonAf (60.0-200.0) BUN/Creatinine Ratio (12.00-20.00) Ratio Glucose (70-110) mg/dL POC Glucose (mg/dL) 270 H (75-99) mg/dL Calcium (8.7-10.3) mg/dL Total Protein (6.2-8.2) g/dL Albumin (3.80-4.90) g/dL Albumin/Globulin Ratio (1.60-3.17) g/dL Microbiology - Last 24 Hours (Table) 09/06/20 01:08 Urine Culture - Final Urine,Catheterized Enterococcus faecalis Assessment and Plan (1) Acute on chronic renal failure Current Visit: Yes Status: Acute Code(s): N17.9 - ACUTE KIDNEY FAILURE, UNSPECIFIED; N18.9 - CHRONIC KIDNEY DISEASE, UNSPECIFIED SNOMED Code(s): 750574471 (2) Urinary tract infection Current Visit: Yes Status: Acute Code(s): N39.0 - URINARY TRACT INFECTION, SITE NOT SPECIFIED SNOMED Code(s): 01009521 (3) Acute renal injury Current Visit: No Status: Acute Code(s): N17.9 - ACUTE KIDNEY FAILURE, UNSPECIFIED SNOMED Code(s): 84442551 (4) History of atrial fibrillation Current Visit: No Status: Chronic Code(s): Z86.79 - PERSONAL HISTORY OF OTHER DISEASES OF THE CIRCULATORY SYSTEM SNOMED Code(s): 886559109 (5) History of hypertension Current Visit: No Status: Chronic Code(s): Z86.79 - PERSONAL HISTORY OF OTHER DISEASES OF THE CIRCULATORY SYSTEM SNOMED Code(s): 641229326 (6) Tobacco dependence in remission Current Visit: No Status: Resolved Code(s): F17.201 - NICOTINE DEPENDENCE, UNSPECIFIED, IN REMISSION SNOMED Code(s): 098967862 (7) Anemia Current Visit: No Status: Acute Code(s): D64.9 - ANEMIA, UNSPECIFIED SNOMED Code(s): 940915257 Plan: We will continue to gingerly IV hydrate. Watch mental status closely. Check CMP in a.m. Hopefully, as she slowly improves, we can discharge the next 24-48 hours Question need to transfuse if her hemoglobin drops. Time with Patient: Greater than 30
[2020-09-09] MEDS: INSULIN ASPART (NovoLOG) 100 UNIT/ML VIAL SQ SCH ×3 (13:20→22:00)
--- NOTE | 2020-09-09 14:26 | CDI ---
Documentation Clarification Form Date: 09/09/2020 02:02:03 PM From: Denise Solomon RN CCDS Admit Date: 09/06/2020 03:43:00 AM Patient Name: Jeanna Fajardo Visit Number: [id number] Discharge Date: ATTENTION: The Clinical Documentation Specialists (CDI) and [facility] Coding Staff appreciate your assistance in clarifying documentation. Please respond to the clarification below the line at the bottom and electronically sign. The CDI & [facility] Coding staff will review the response and follow-up if needed. Please note: Queries are made part of the Legal Health Record. If you have any questions, please contact the author of this message via ITS. Dr. Orion Bose Sepsis is documented in the Internal Medicine Progress Note 09/07 History/Risk Factors: 84-year-old female presents to the ED with confusion suprapubic tenderness and loss of appetite. Medical History: DM, OA, Renal disease and Recent Hip fracture with repair. Clinical Indicators: 09/07 Internal Medicine Progress Note Most likely these hypoglycemic episodes are due to sepsis secondary to urinary tract infection, urine culture is growing group D enterococci, final sensitivities pending. WBC 09/06: 10.6 Lactic acid 09/06: 1.0 Blood cultures: None Drawn Urine culture 09/06: Enterococcus faecalis POC Glucose: 09/06 146; 09/07 40; 09/07 88; 09/07 35; 09/07 178; 09/07 178; 09/07 155; 09/07 57; 09/07 49; 09/07 123; 09/08 40; 09/08 46 Vitals signs on admission 09/06: B/P 135/58; HR 82; Temp 97.0F Oral; RR 16; SpO2 96% ra Treatment: ID Progress Note 09/07: Urinary tract infection, Group D Enterococcus. Right heel stage 2 pressure ulcer. Antibiotics: 09/06 Zosyn Ivpb q 12hrs d/c 09/07; 09/08 Ampicillin ivpb Q 12 hour IV Bolus:09/06 0.9ns 500cc bolus x 2 followed by 75cc/hr; Other: 09/06 Novolog achs; In your professional opinion, please clarify if these findings signify one of the following conditions, whether the condition is POA, and cause, if known: Condition Sepsis ruled out-this is the correct diagnosis Sepsis Other, please specify Unable to determine Present on Admission Yes-this is the correct diagnosis No Identify the (suspected) organism SIRS Criteria (2 or more of the following may indicate SIRS): -Temperature < 96.8F (36C) or > 101.0F (38.3C) -Heart Rate > 90 bpm -Respiratory Rate > 20 breaths/min or PaCO2 < 32 mmHg -White Blood Cell Count > 12,000 or < 4,000 cells/mm3 or > 10% bands -Lactate >2.0 mmol/L (>4.0 is equivalent to septic shock) (Last Revision: January 2018) MTDD
[2020-09-09 15:26] LABS: Ferritin 220.6 ng/mL (10.0-291.0)
[2020-09-09 15:49] LABS: % Iron Saturation 25.13 (12.00-45.00)
[2020-09-09 17:10] LABS: Glucose,Whole Blood 191 mg/dL (75-99)
[2020-09-09 21:32] LABS: Glucose,Whole Blood 187 mg/dL (75-99)
[2020-09-10 02:03] LABS: Glucose,Whole Blood 170 mg/dL (75-99)
[2020-09-10] MEDS: INSULIN ASPART (NovoLOG) 100 UNIT/ML VIAL SQ SCH ×2 (02:04→06:26)
--- NOTE | 2020-09-10 02:51 | PN ---
PROGRESS NOTE DATE OF SERVICE: 09/09/2020 REASON FOR FOLLOWUP: Enterococcus urinary tract infection. INTERVAL HISTORY: The patient is currently afebrile. The patient is more awake and alert. She is breathing comfortably. Denies having any chest pain or shortness of breath. Minimal cough. No nausea, no vomiting. No abdominal pain or diarrhea. PHYSICAL EXAMINATION: Her blood pressure is 165/66, pulse of 69, temperature 97.8. She is 98% on room air. General description is an elderly female lying in bed in no distress. RESPIRATORY SYSTEM: Unlabored breathing, clear to auscultation anteriorly. HEART: S1, S2. Regular rate and rhythm. ABDOMEN: Soft, no tenderness. LABS: Hemoglobin 7.1, white count 7.9, BUN 33, creatinine 1.2. DIAGNOSTIC IMPRESSION AND PLAN: Patient with Enterococcus faecalis urinary tract infection in this patient overall clinically responding to the Unasyn finishing therapy with oral Augmentin for about a week and continue with supportive care. MMODL / IJN: [id number] /
[2020-09-10 06:24] LABS: Glucose,Whole Blood 160 mg/dL (75-99)
[2020-09-10 08:13] LABS: Anisocytosis Slight; HCT 25.1 % (34.0-46.0); HGB 8.2 gm/dL (11.4-16.0); MCH 31.4 pg (25.0-35.0); MCHC 32.7 g/dL (31.0-37.0); MCV 95.8 fL (80.0-100.0); Macrocytosis Slight; Mean Platelet Volume 7.6; Platelet Count 306 k/uL (150-450); RBC 2.62 m/uL (3.80-5.40); RDW 16.4 % (11.5-15.5); WBC 8.9 k/uL (3.8-10.6)
[2020-09-10 08:14] LABS: Albumin 2.6 g/dL (3.5-5.0); Calcium 8.5 mg/dL (8.4-10.2); Potassium 4.2 mmol/L (3.5-5.1); Total Bilirubin 0.5 mg/dL (0.2-1.3); Total Protein 5.3 g/dL (6.3-8.2)
--- NOTE | 2020-09-10 08:47 | P.DS ---
Providers Date of admission: 09/06/20 03:43 Attending physician: Orion Bose Consults: 09/06/20 03:01 Consult Physician Routine Consulting Provider: Iesha Chavez Consult Reason/Comments: Acute on chronic renal failure; hyperkalemia Do you want consulting provider notified?: Yes 09/06/20 13:54 Consult Physician Urgent Consulting Provider: Danisha Gamboa Consult Reason/Comments: [facility] wound care Do you want consulting provider notified?: Yes Primary care physician: Orion Bose - Discharge Diagnosis(es) (1) Acute on chronic renal failure Current Visit: Yes Status: Acute (2) Urinary tract infection Current Visit: Yes Status: Acute (3) Acute renal injury Current Visit: No Status: Acute (4) History of atrial fibrillation Current Visit: No Status: Chronic (5) History of hypertension Current Visit: No Status: Chronic (6) Tobacco dependence in remission Current Visit: No Status: Resolved (7) Anemia Current Visit: No Status: Acute Hospital Course: The patient is admitted essentially for acute on chronic renal failure. The patient was also diagnosed with element of enterococcus faecalis UTI. The patient was stabilized with appropriate antibiotic treatment and now renal failure is stabilized with appropriate nephrology consult and treatment. The patient was discharged on Augmentin and follow-up with me in about a week. Patient Condition at Discharge: Serious Plan - Discharge Summary New Discharge Prescriptions: New Amoxicillin/Potassium Clav [Augmentin 500-125 Tablet] 1 tab PO Q12HR 1 Days #14 tab Continue Potassium Chloride [K-Tab ER] 10 meq PO DAILY hydrALAZINE HCL [Apresoline] 50 mg PO TID Magnesium Oxide 400 mg PO DAILY glipiZIDE XL [Glucotrol XL] 10 mg PO AC-BID Famotidine [Pepcid] 20 mg PO DAILY #30 tab Apixaban [Eliquis] 2.5 mg PO BID Ascorbic Acid [Vitamin C] 500 mg PO DAILY Cholecalciferol [Vitamin D3] 800 unit PO DAILY lisinopriL [Zestril] 2.5 mg PO HS Docusate [Colace] 200 mg PO DAILY Furosemide [Lasix] 40 mg PO BID@0900,1600 tab Metoprolol Tartrate [Lopressor] 75 mg PO BID #60 tab traMADol HCl [Ultram] 50 mg PO QID #120 tab allopurinoL [Zyloprim] 150 mg PO DAILY Diltiazem HCl [Cardizem] 90 mg PO BID Acetaminophen [Tylenol] 650 mg PO Q4H PRN PRN Reason: Pain Or Fever > 100.5 Vitamin E 400 unit PO DAILY Polyethylene Glycol 3350 [Miralax] 17 gm PO DAILY Multivitamins, Thera [Multivitamin (formulary)] 1 tab PO DAILY hydrALAZINE HCL 25 mg PO TID Lovastatin [Altoprev] 20 mg PO HS Aspirin 81 mg PO DAILY@0900 Discharge Medication List Potassium Chloride [K-Tab ER] 10 meq PO DAILY 06/23/14 [History] hydrALAZINE HCL [Apresoline] 50 mg PO TID 12/08/16 [History] Magnesium Oxide 400 mg PO DAILY 02/17/17 [History] glipiZIDE XL [Glucotrol XL] 10 mg PO AC-BID 11/17/17 [History] Famotidine [Pepcid] 20 mg PO DAILY #30 tab 11/23/17 [Rx] Apixaban [Eliquis] 2.5 mg PO BID 01/29/18 [History] Ascorbic Acid [Vitamin C] 500 mg PO DAILY 01/29/18 [History] Cholecalciferol [Vitamin D3] 800 unit PO DAILY 07/21/20 [History] Docusate [Colace] 200 mg PO DAILY 07/21/20 [History] lisinopriL [Zestril] 2.5 mg PO HS 07/21/20 [History] Furosemide [Lasix] 40 mg PO BID@0900,1600 tab 07/30/20 [Rx] Metoprolol Tartrate [Lopressor] 75 mg PO BID #60 tab 07/30/20 [Rx] traMADol HCl [Ultram] 50 mg PO QID #120 tab 07/30/20 [Rx] Acetaminophen [Tylenol] 650 mg PO Q4H PRN 09/06/20 [History] Aspirin 81 mg PO DAILY@0900 09/06/20 [History] Diltiazem HCl [Cardizem] 90 mg PO BID 09/06/20 [History] Lovastatin [Altoprev] 20 mg PO HS 09/06/20 [History] Multivitamins, Thera [Multivitamin (formulary)] 1 tab PO DAILY 09/06/20 [History] Polyethylene Glycol 3350 [Miralax] 17 gm PO DAILY 09/06/20 [History] Vitamin E 400 unit PO DAILY 09/06/20 [History] allopurinoL [Zyloprim] 150 mg PO DAILY 09/06/20 [History] hydrALAZINE HCL 25 mg PO TID 09/06/20 [History] Amoxicillin/Potassium Clav [Augmentin 500-125 Tablet] 1 tab PO Q12HR 1 Days #14 tab 09/10/20 [Rx] Follow up Appointment(s)/Referral(s): Orion Bose MD [Primary Care Provider] - 1-2 days [facility], [NON-STAFF] - 1 Week
[2020-09-10] MEDS: allopurinoL 100 MG TAB PO SCH (09:14)
[2020-09-10] MEDS: ASPIRIN 81 MG PO SCH (09:14)
[2020-09-10] MEDS: hydrALAZINE HCL 25 MG TAB PO SCH (09:14)
[2020-09-10] MEDS: CHOLECALCIFEROL 400 UNIT TAB PO SCH (09:14)
[2020-09-10] MEDS: ASCORBIC ACID 500 MG TAB PO SCH (09:14)
[2020-09-10] MEDS: DILTIAZEM ORAL 30 MG TAB PO SCH (09:14)
[2020-09-10] MEDS: METOPROLOL TARTRATE 25 MG TAB PO SCH (09:14)
[2020-09-10] MEDS: APIXABAN 2.5 MG TABLET PO SCH (09:14)
[2020-09-10] MEDS: DOCUSATE 100 MG CAP PO SCH (09:14)
[2020-09-10] MEDS: FAMOTIDINE 20 MG TAB PO SCH (09:14)
[2020-09-10 09:23] VITALS: BP 144/54; PULSE 66
[2020-09-10] MEDS: AMPICILLIN-SULBACTAM 3 GM in SODIUM CHLORIDE 0.9% 100 ML IVPB SCH (09:24)
[2020-09-10 09:27] VITALS: RESP 22; TEMP 98.8
--- NOTE | 2020-09-10 12:09 | P.PN ---
Subjective Patient is seen in follow-up for acute kidney injury on chronic kidney disease. Renal function improving since admission. Off IV fluids. Oral intake here. Blood sugar stable. No chest pain or shortness of breath. Vital signs are stable. General: The patient appeared well nourished and normally developed. HEENT: Head exam is unremarkable. Neck is without jugular venous distension. LUNGS: Breath sounds decreased. HEART: Rate and Rhythm are regular. ABDOMEN: Soft, nontender. EXTREMITITES: No edema. Objective - Vital Signs Vital signs: Vital Signs Temp 98.8 F 09/10/20 08:50 Pulse 66 09/10/20 09:22 Resp 22 09/10/20 08:50 BP 144/54 09/10/20 09:22 Pulse Ox 95 09/10/20 09:22 Intake & Output 09/09/20 09/10/20 09/10/20 18:59 06:59 18:59 Intake Total 2470 Balance 2470 Weight 67 kg Intake: Intake, IV Titration 190 Amount Ampicillin-Sulbactam 3 gm 100 In Sodium Chloride 0.9% 100 ml @ 200 mls/hr IVPB Q12HR OLIVIA Rx#:[id number] Dextrose 10% in Water 1, 90 000 ml @ 30 mls/hr IV . Q24H OLIVIA with Sodium Chloride 2.5MEQ/ml Vial 153.8 meq Rx#:[id number] Oral 2280 Other: Voiding Method Toilet Toilet Diaper # Voids 3 2 - Labs CBC & Chem 7: 09/10/20 07:44 09/10/20 07:44 Labs: Abnormal Lab Results - Last 24 Hours (Table) 09/09/20 09/09/20 09/09/20 Range/Units 07:03 17:09 21:31 RBC (3.80-5.40) m/uL Hgb (11.4-16.0) gm/dL Hct (34.0-46.0) % RDW (11.5-15.5) % Sodium (137-145) mmol/L BUN (7-17) mg/dL Creatinine (0.52-1.04) mg/dL Glucose (74-99) mg/dL POC Glucose (mg/dL) 191 H 187 H (75-99) mg/dL Iron 47 L (50-170) ug/dL TIBC 187 L (228-460) ug/dL Total Protein (6.3-8.2) g/dL Albumin (3.5-5.0) g/dL 09/10/20 09/10/20 09/10/20 Range/Units 02:01 06:20 07:44 RBC 2.62 L (3.80-5.40) m/uL Hgb 8.2 L (11.4-16.0) gm/dL Hct 25.1 L (34.0-46.0) % RDW 16.4 H (11.5-15.5) % Sodium (137-145) mmol/L BUN (7-17) mg/dL Creatinine (0.52-1.04) mg/dL Glucose (74-99) mg/dL POC Glucose (mg/dL) 170 H 160 H (75-99) mg/dL Iron (50-170) ug/dL TIBC (228-460) ug/dL Total Protein (6.3-8.2) g/dL Albumin (3.5-5.0) g/dL 09/10/20 Range/Units 07:44 RBC (3.80-5.40) m/uL Hgb (11.4-16.0) gm/dL Hct (34.0-46.0) % RDW (11.5-15.5) % Sodium 134 L (137-145) mmol/L BUN 27 H (7-17) mg/dL Creatinine 1.08 H (0.52-1.04) mg/dL Glucose 178 H (74-99) mg/dL POC Glucose (mg/dL) (75-99) mg/dL Iron (50-170) ug/dL TIBC (228-460) ug/dL Total Protein 5.3 L (6.3-8.2) g/dL Albumin 2.6 L (3.5-5.0) g/dL Assessment and Plan Plan: Assessment: 1. Acute kidney injury mostly prerenal from poor intake, improved with IV hydration. Creatinine 1.08 today. stage III with baseline creatinine near 1.2- 1.7. 3. Hyperkalemia secondary to acute kidney injury and potassium supplementation. Improved. 4. Enterococcus UTI maintained on antibiotics. 5. Diabetes mellitus. 6. Acute anemia. Likely component of chronic kidney disease. Iron replete. No active bleeding. Plan: Encourage oral intake. Avoid nephrotoxins. Continue to monitor renal function and urine output. Stable from nephrology standpoint.
--- NOTE | 2020-09-10 14:13 | PN ---
PROGRESS NOTE DATE OF SERVICE: 09/10/2020. REASON FOR FOLLOWUP: Enterococcus urinary tract infection. INTERVAL HISTORY: Patient is seen on rounds this morning. The patient overall feeling better. Breathing comfortably. No chest pain, no cough, no abdominal pain, no diarrhea. PHYSICAL EXAMINATION: Blood pressure is 144/54, pulse of 66, temperature 98.8. She is 95% on room air. General description is an elderly female, lying in bed in no distress. RESPIRATORY SYSTEM: Unlabored breathing, clear to auscultation anteriorly. HEART: S1, S2. Regular rate and rhythm. ABDOMEN: Soft, no tenderness. LABS: Hemoglobin 8.8, white count 8.9, BUN of 27, creatinine 1.08. DIAGNOSTIC IMPRESSION AND PLAN: Patient with Enterococcus urinary tract infection, overall clinical improvement. Finish therapy with oral Augmentin for a week and close outpatient followup. MMODL / IJN: [id number] /
--- NOTE | 2020-09-12 07:45 | CDI ---
Documentation Clarification Form Date: 09/12/20 From: Christine Keller CCS Phone: If you have a question about this query, please contact Mary Juárez, Clerical Secretary at [phone] between 8am and 5pm. Admit Date: 09/06/20 Discharge Date:09/10/20 Patient Name: Jeanna Fajardo Visit Number: [id number] ATTENTION: The Clinical Documentation Specialists (CDI) and [facility] Coding Staff appreciate your assistance in clarifying documentation. Please respond to the clarification below the line at the bottom and electronically sign. The CDI & [facility] Coding staff will review the response and follow-up if needed. Please note: Queries are made part of the Legal Health Record. If you have any questions, please contact the author of this message via ITS. Dear Dr. Bose, Wound Care Assessment and Dietary Consult document pressure ulcer stage II left buttock and pressure ulcer right heel unstageable. PN 09/07 documents right heel stage II pressure ulcer History/Risk Factors: Recent rehab/treatment for hip fracture, HTN, CKD, DM, Dementia, AFIB, UTI, BOBBY Clinical Indicators: Pressure ulcers Location: Right heel, Left buttock Wound description: Stage II left buttock, Unstageable right heel Treatment: Wound care, foam w/ border Elements for accurate and compliant documentation of an ulcer: *The location/laterality of the ulcer *Etiology (decubitus/pressure, diabetic, PVD) *Stage I-IV, Unstageable, Suspected Deep Tissue Injury (To the deepest stage) *If the ulcer was present at admission (POA) or occurred after admission In your professional opinion, can you please clarify the diagnosis, location, laterality and whether present on admission (POA): Stage 1 Pressure/Decubitus Ulcer (intact skin, non-blanching redness of local area) Stage 2 Pressure/Decubitus Ulcer (Partial thickness, loss of dermis, pink wound bed)-this is the correct dx Stage 3 Pressure/Decubitus Ulcer (Full thickness tissue loss) Stage 4 Pressure/Decubitus Ulcer (Full thickness tissue loss with exposed bone, tendon, or muscle. May have slough or eschar present) Unstageable Other condition, please specify Unable to determine MTDD
--- NOTE | 2020-09-12 07:59 | CDI ---
Documentation Clarification Form Date: 09/12/20 From: Christine Keller CCS Phone: If you have a question about this query, please contact Mary Juárez, Assistant Professor Of English at [phone] between 8am and 5pm. Admit Date: 09/06/20 Discharge Date: 09/10/20 Patient Name: Jeanna Fajardo Visit Number: [id number] ATTENTION: The Clinical Documentation Specialists (CDI) and [facility] Coding Staff appreciate your assistance in clarifying documentation. Please respond to the clarification below the line at the bottom and electronically sign. The CDI & [facility] Coding staff will review the response and follow-up if needed. Please note: Queries are made part of the Legal Health Record. If you have any questions, please contact the author of this message via ITS. Dear Dr. Bose, Atrial Fibrillation is documented in the PNs, DS. History/Risk Factors: CAD, Valve disease, HTN, DM, CKD, ASD Clinical Indicators: AFIB EKG/telemetry: Wide QRS rhythm Treatment: Eliquis 2.5 mg PO BID In your professional opinion, can you please clarify the type of Atrial Fibrillation, if known? Chronic/Permanent-this is the correct dx Paroxysmal Persistent Other, please specify Unable to determine MTDD
--- NOTE | 2020-09-23 11:29 | CDI ---
Documentation Clarification Form Date: 09/12/20 From: Christine Keller CCS Phone: If you have a question about this query, please contact Mary Juárez, Recoverer at [phone] between 8am and 5pm. Admit Date: 09/06/20 Discharge Date:09/10/20 Patient Name: Jeanna Fajardo Visit Number: [id number] ATTENTION: The Clinical Documentation Specialists (CDI) and [facility] Coding Staff appreciate your assistance in clarifying documentation. Please respond to the clarification below the line at the bottom and electronically sign. The CDI & [facility] Coding staff will review the response and follow-up if needed. Please note: Queries are made part of the Legal Health Record. If you have any questions, please contact the author of this message via ITS. Dear Dr. Bose, Wound Care Assessment and Dietary Consult document pressure ulcer stage II left buttock and pressure ulcer right heel unstageable. PN 09/07 documents right heel stage II pressure ulcer History/Risk Factors: Recent rehab/treatment for hip fracture, HTN, CKD, DM, Dementia, AFIB, UTI, BOBBY Clinical Indicators: Pressure ulcers Location: Right heel, Left buttock Wound description: Stage II left buttock, Unstageable right heel Treatment: Wound care, foam w/ border Elements for accurate and compliant documentation of an ulcer: *The location/laterality of the ulcer *Etiology (decubitus/pressure, diabetic, PVD) *Stage I-IV, Unstageable, Suspected Deep Tissue Injury (To the deepest stage) *If the ulcer was present at admission (POA) or occurred after admission In your professional opinion, can you please clarify the diagnosis, location, laterality and whether present on admission (POA): Stage 1 Pressure/Decubitus Ulcer (intact skin, non-blanching redness of local area) Stage 2 Pressure/Decubitus Ulcer (Partial thickness, loss of dermis, pink wound bed)-this is the correct diagnosis Stage 3 Pressure/Decubitus Ulcer (Full thickness tissue loss) Stage 4 Pressure/Decubitus Ulcer (Full thickness tissue loss with exposed bone, tendon, or muscle. May have slough or eschar present) Unstageable Other condition, please specify Unable to determine MTDD
--- NOTE | 2020-09-23 11:31 | CDI ---
Documentation Clarification Form Date: 09/12/20 From: Christine Keller CCS Phone: If you have a question about this query, please contact Mary Juárez, Supervisor [employer] at [phone] between 8am and 5pm. Admit Date: 09/06/20 Discharge Date: 09/10/20 Patient Name: Jeanna Fajardo Visit Number: [id number] ATTENTION: The Clinical Documentation Specialists (CDI) and [facility] Coding Staff appreciate your assistance in clarifying documentation. Please respond to the clarification below the line at the bottom and electronically sign. The CDI & [facility] Coding staff will review the response and follow-up if needed. Please note: Queries are made part of the Legal Health Record. If you have any questions, please contact the author of this message via ITS. Dear Dr. Bose, Atrial Fibrillation is documented in the PNs, DS. History/Risk Factors: CAD, Valve disease, HTN, DM, CKD, ASD Clinical Indicators: AFIB EKG/telemetry: Wide QRS rhythm Treatment: Eliquis 2.5 mg PO BID In your professional opinion, can you please clarify the type of Atrial Fibrillation, if known? Chronic/Permanent Paroxysmal-This is the correct diagnosis Persistent Other, please specify Unable to determine MTDD
== END 2020-09-10 12:58 | disposition home health service (06) | DRG 682 ==
LOC: EC 00:37 → 3SCARD 03:43 → 6NMEDSUR 18:05 → 6PED 09-09 18:32
PROVIDERS: ADMIT Family Medicine; ATTEND Family Medicine
DX: N17.9 Acute kidney failure, unspecified (principal); G93.41 Metabolic encephalopathy; E87.3 Alkalosis; N39.0 Urinary tract infection, site not specified; Q21.1 Atrial septal defect; E11.649 Type 2 diabetes mellitus with hypoglycemia without coma; L89.322 Pressure ulcer of left buttock, stage 2; D63.1 Anemia in chronic kidney disease; E11.22 Type 2 diabetes mellitus with diabetic chronic kidney disease; L89.612 Pressure ulcer of right heel, stage 2; F03.90 Unspecified dementia, unspecified severity, without behavioral disturbance, psychotic disturbance, mood disturbance, and anxiety; I48.0 Paroxysmal atrial fibrillation; Z20.828 Contact with and (suspected) exposure to other viral communicable diseases; N18.30 Chronic kidney disease, stage 3 unspecified; I12.9 Hypertensive chronic kidney disease with stage 1 through stage 4 chronic kidney disease, or unspecified chronic kidney disease; B95.2 Enterococcus as the cause of diseases classified elsewhere; E87.5 Hyperkalemia; R32 Unspecified urinary incontinence; R21 Rash and other nonspecific skin eruption; I25.10 Atherosclerotic heart disease of native coronary artery without angina pectoris; K21.9 Gastro-esophageal reflux disease without esophagitis; E78.5 Hyperlipidemia, unspecified; M19.90 Unspecified osteoarthritis, unspecified site; I44.0 Atrioventricular block, first degree; E86.0 Dehydration; S72.141D Displaced intertrochanteric fracture of right femur, subsequent encounter for closed fracture with routine healing; I35.0 Nonrheumatic aortic (valve) stenosis; W19.XXXD Unspecified fall, subsequent encounter; Z71.3 Dietary counseling and surveillance; Z79.01 Long term (current) use of anticoagulants; Z79.82 Long term (current) use of aspirin; Z79.84 Long term (current) use of oral hypoglycemic drugs; Z79.899 Other long term (current) drug therapy; Z85.828 Personal history of other malignant neoplasm of skin; Z86.010 Personal history of colon polyps; Z95.828 Presence of other vascular implants and grafts; Z95.2 Presence of prosthetic heart valve; Z95.5 Presence of coronary angioplasty implant and graft; Z98.49 Cataract extraction status, unspecified eye; Z87.891 Personal history of nicotine dependence; Z88.1 Allergy status to other antibiotic agents; Z88.8 Allergy status to other drugs, medicaments and biological substances; Z83.3 Family history of diabetes mellitus; Z82.3 Family history of stroke; Z82.49 Family history of ischemic heart disease and other diseases of the circulatory system; Z82.0 Family history of epilepsy and other diseases of the nervous system; Z80.9 Family history of malignant neoplasm, unspecified
CPT/HCPCS: 36415; 71046; 73502; 76770; 80048; 80053; 81001; 82728; 83525; 83540; 83550; 83605; 83735; 85025; 85027; 86337; 87077; 87086; 87186; 87635; 93005; 96361; 96365; 96366; 96367; 96375; 99285

== ENCOUNTER 2020-09-15 09:10 | Emergency (ER) | payer MEDICARE ==
[2020-09-15 09:24] VITALS: RESP 16; TEMP 98.3
[2020-09-15] MEDS ORDERED: SODIUM CHLORIDE 0.9% 500 ML 500 ML IV ONE (09:25)
--- NOTE | 2020-09-15 09:28 | ED ---
General Adult HPI - General Chief complaint: Altered Mental Status Stated complaint: altered LOC Time Seen by Provider: 09/15/20 09:10 Source: patient, EMS, RN notes reviewed, old records reviewed Mode of arrival: EMS Limitations: altered mental status - History of Present Illness Initial comments: This is an 85-year-old female who presents emergency department via EMS she was brought in for altered mental status. Patient's family is not with her so the history is all from EMS. They state that the people at the facility that she was that did not know much about her other than she was acting differently today. Normally she is alert and oriented 4 but today she didn't know the year or the president was and she seemed a little bit confused them so they called EMS. There was no history of any recent fever there was a history however of a urinary tract infection. There was some pills in a cup Next to the bed which she had not yet taken those. No other history is available this time - Related Data Home Medications Medication Instructions Recorded Confirmed Potassium Chloride [K-Tab ER] 10 meq PO DAILY 06/23/14 09/15/20 hydrALAZINE HCL [Apresoline] 50 mg PO TID 12/08/16 09/15/20 Magnesium Oxide 400 mg PO DAILY 02/17/17 09/15/20 glipiZIDE XL [Glucotrol XL] 10 mg PO AC-BID 11/17/17 09/15/20 Apixaban [Eliquis] 2.5 mg PO BID 01/29/18 09/15/20 Ascorbic Acid [Vitamin C] 500 mg PO DAILY 01/29/18 09/15/20 Cholecalciferol [Vitamin D3] 800 unit PO DAILY 07/21/20 09/15/20 Docusate [Colace] 200 mg PO DAILY 07/21/20 09/15/20 lisinopriL [Zestril] 2.5 mg PO HS 07/21/20 09/15/20 Acetaminophen [Tylenol] 650 mg PO Q4H PRN 09/06/20 09/15/20 Aspirin 81 mg PO DAILY@0900 09/06/20 09/15/20 Diltiazem HCl [Cardizem] 90 mg PO BID 09/06/20 09/15/20 Lovastatin [Altoprev] 20 mg PO HS 09/06/20 09/15/20 Multivitamins, Thera [Multivitamin 1 tab PO DAILY 09/06/20 09/15/20 (formulary)] Polyethylene Glycol 3350 [Miralax] 17 gm PO DAILY 09/06/20 09/15/20 Vitamin E 400 unit PO DAILY 09/06/20 09/15/20 allopurinoL [Zyloprim] 150 mg PO DAILY 09/06/20 09/15/20 hydrALAZINE HCL 25 mg PO TID 09/06/20 09/15/20 Previous Rx's Medication Instructions Recorded Famotidine [Pepcid] 20 mg PO DAILY #30 tab 11/23/17 Furosemide [Lasix] 40 mg PO BID@0900,1600 tab 07/30/20 Metoprolol Tartrate [Lopressor] 75 mg PO BID #60 tab 07/30/20 traMADol HCl [Ultram] 50 mg PO QID #120 tab 07/30/20 Amoxicillin/Potassium Clav 1 tab PO Q12HR 1 Days #14 tab 09/10/20 [Augmentin 500-125 Tablet] Allergies Allergy/AdvReac Type Severity Reaction Status Date / Time cephalexin monohydrate Allergy Rash/Hives Verified 09/15/20 09:47 [From Keflex] rofecoxib [From Vioxx] Allergy Unknown Verified 09/15/20 09:47 doxycycline [From Vibramycin] AdvReac Nausea & Verified 09/15/20 09:47 Vomiting Review of Systems ROS Statement: Those systems with pertinent positive or pertinent negative responses have been documented in the HPI. ROS Other: All systems not noted in ROS Statement are negative. Past Medical History Past Medical History: Coronary Artery Disease (CAD), Cancer, Diabetes Mellitus, GERD/Reflux, Hyperlipidemia, Hypertension, Osteoarthritis (OA), Renal Disease Additional Past Medical History / Comment(s): USES A WALKER, LEG SWELLING, MURMUR, SINUS PROBLEMS, BENIGN POLYPS, INCONT OF URINE, PAST HX ANEMIA, "kidney function-3.5", severe aortic stenosis, patent foramen ovale. SKIN CANCER History of Any Multi-Drug Resistant Organisms: None Reported Past Surgical History: Heart Catheterization, Heart Catheterization With Stent Additional Past Surgical History / Comment(s): CATARACT SURGERY, COLONOSCOPY, bisi, TAVR 01/03/2018. "STENT IN [facility]". Past Anesthesia/Blood Transfusion Reactions: No Reported Reaction Date of Last Stent Placement:: January 03, 2018 Past Psychological History: No Psychological Hx Reported Smoking Status: Former smoker Past Alcohol Use History: None Reported Past Drug Use History: None Reported - Past Family History Mother Family Medical History: CVA/TIA, Diabetes Mellitus Father Family Medical History: Cancer, Coronary Artery Disease (CAD) Brother(s) Family Medical History: CVA/TIA, Diabetes Mellitus Sister(s) Family Medical History: Dementia Son(s) Family Medical History: No Reported History Daughter(s) Family Medical History: No Reported History General Exam - General Exam Comments Initial Comments: GENERAL: Patient is well-developed and well-nourished. Patient is nontoxic and well- hydrated and is in no acute distress. ENT: Neck is soft and supple. No significant lymphadenopathy is noted. Oropharynx is clear. Moist mucous membranes. Neck has full range of motion without eliciting any pain. EYES: The sclera were anicteric and conjunctiva were pink and moist. Extraocular movements were intact and pupils were equal round and reactive to light. Eyelids were unremarkable. PULMONARY: Unlabored respirations. Good breath sounds bilaterally. No audible rales rhonchi or wheezing was noted. CARDIOVASCULAR: There is a regular rate and rhythm without any murmurs gallops or rubs. Femoral pulses are equal bilaterally ABDOMEN: Soft and nontender with normal bowel sounds. SKIN: Skin is clear with no lesions or rashes and otherwise unremarkable. NEUROLOGIC: Patient is alert and oriented 1. Cranial nerves II through XII are grossly intact. Motor and sensory are also intact. Normal speech, volume and content. Symmetrical smile. MUSCULOSKELETAL: Normal extremities with adequate strength and full range of motion. Right leg is considerably larger than the left leg. Patient has no calf tenderness. He shouldn't patient does have some chronic cellulitis to the right leg. LYMPHATICS: No significant lymphadenopathy is noted PSYCHIATRIC: Normal psychiatric evaluation. Limitations: altered mental status Course Vital Signs 09/15/20 09/15/20 09/15/20 09:19 10:24 11:24 Temperature 98.3 F Pulse Rate 63 77 77 Respiratory 16 16 16 Rate Blood Pressure 133/60 155/64 162/56 O2 Sat by Pulse 95 95 95 Oximetry 09/15/20 12:00 Temperature Pulse Rate 75 Respiratory 16 Rate Blood Pressure O2 Sat by Pulse 95 Oximetry Medical Decision Making - Medical Decision Making EKG shows sinus rhythm at 71 bpm NE interval is 230 QRS is an 20 QT intervals 452 QTC is 491. Patient's EKG shows no ST segment elevation or depression. Patient's sugar was found to be low so we gave her amp of D50. After the patient was alert and oriented 3. Patient after that 80 medial and continued to be at her baseline. - Lab Data Result diagrams: 09/15/20 09:49 09/15/20 09:49 Lab Results 09/15/20 09/15/20 09/15/20 Range/Units 09:48 09:49 09:49 WBC 8.7 (3.8-10.6) k/uL RBC 2.42 L (3.80-5.40) m/uL Hgb 7.5 L (11.4-16.0) gm/dL Hct 23.1 L (34.0-46.0) % MCV 95.5 (80.0-100.0) fL MCH 30.8 (25.0-35.0) pg MCHC 32.3 (31.0-37.0) g/dL RDW 17.1 H (11.5-15.5) % Plt Count 346 (150-450) k/uL MPV 7.4 Neutrophils % 74 % Lymphocytes % 13 % Monocytes % 5 % Eosinophils % 6 % Basophils % 1 % Neutrophils # 6.5 (1.3-7.7) k/uL Lymphocytes # 1.1 (1.0-4.8) k/uL Monocytes # 0.4 (0-1.0) k/uL Eosinophils # 0.6 (0-0.7) k/uL Basophils # 0.1 (0-0.2) k/uL Anisocytosis Slight Macrocytosis Slight PT 9.8 (9.0-12.0) sec INR 0.9 (<1.2) APTT 25.7 (22.0-30.0) sec Sodium (137-145) mmol/L Potassium (3.5-5.1) mmol/L Chloride (98-107) mmol/L Carbon Dioxide (22-30) mmol/L Anion Gap mmol/L BUN (7-17) mg/dL Creatinine (0.52-1.04) mg/dL Est GFR (CKD-EPI)AfAm (>60 ml/min/1.73 sqM) Est GFR (CKD-EPI)NonAf (>60 ml/min/1.73 sqM) Glucose (74-99) mg/dL POC Glucose (mg/dL) 41 L (75-99) mg/dL POC Glu Enamel Cracker ID Noa Soto Calcium (8.4-10.2) mg/dL Total Bilirubin (0.2-1.3) mg/dL AST (14-36) U/L ALT (4-34) U/L Alkaline Phosphatase (38-126) U/L Troponin I (0.000-0.034) ng/mL Total Protein (6.3-8.2) g/dL Albumin (3.5-5.0) g/dL Urine Color Urine Appearance (Clear) Urine pH (5.0-8.0) Ur Specific [place] (1.001-1.035) Urine Protein (Negative) Urine Glucose (UA) (Negative) Urine Ketones (Negative) Urine Blood (Negative) Urine Nitrite (Negative) Urine Bilirubin (Negative) Urine Urobilinogen (<2.0) mg/dL Ur Leukocyte Esterase (Negative) Urine WBC (0-5) /hpf Ur Squamous Epith Cells (0-4) /hpf Urine Bacteria (None) /hpf Urine Mucus (None) /hpf Urine Opiates Screen (NotDetected) Ur Oxycodone Screen (NotDetected) Urine Methadone Screen (NotDetected) Ur Propoxyphene Screen (NotDetected) Ur Barbiturates Screen (NotDetected) U Tricyclic Antidepress (NotDetected) Ur Phencyclidine Scrn (NotDetected) Ur Amphetamines Screen (NotDetected) U Methamphetamines Scrn (NotDetected) U Benzodiazepines Scrn (NotDetected) Urine Cocaine Screen (NotDetected) U Marijuana (THC) Screen (NotDetected) 09/15/20 09/15/20 09/15/20 Range/Units 09:49 09:49 10:30 WBC (3.8-10.6) k/uL RBC (3.80-5.40) m/uL Hgb (11.4-16.0) gm/dL Hct (34.0-46.0) % MCV (80.0-100.0) fL MCH (25.0-35.0) pg MCHC (31.0-37.0) g/dL RDW (11.5-15.5) % Plt Count (150-450) k/uL MPV Neutrophils % % Lymphocytes % % Monocytes % % Eosinophils % % Basophils % % Neutrophils # (1.3-7.7) k/uL Lymphocytes # (1.0-4.8) k/uL Monocytes # (0-1.0) k/uL Eosinophils # (0-0.7) k/uL Basophils # (0-0.2) k/uL Anisocytosis Macrocytosis PT (9.0-12.0) sec INR (<1.2) APTT (22.0-30.0) sec Sodium 133 L (137-145) mmol/L Potassium 4.6 (3.5-5.1) mmol/L Chloride 106 (98-107) mmol/L Carbon Dioxide 24 (22-30) mmol/L Anion Gap 3 mmol/L BUN 44 H (7-17) mg/dL Creatinine 1.46 H (0.52-1.04) mg/dL Est GFR (CKD-EPI)AfAm 37 (>60 ml/min/1.73 sqM) Est GFR (CKD-EPI)NonAf 32 (>60 ml/min/1.73 sqM) Glucose 36 L* (74-99) mg/dL POC Glucose (mg/dL) (75-99) mg/dL POC Glu Enamel Cracker ID Calcium 8.5 (8.4-10.2) mg/dL Total Bilirubin 0.5 (0.2-1.3) mg/dL AST 26 (14-36) U/L ALT 10 (4-34) U/L Alkaline Phosphatase 56 (38-126) U/L Troponin I <0.012 (0.000-0.034) ng/mL Total Protein 5.7 L (6.3-8.2) g/dL Albumin 2.9 L (3.5-5.0) g/dL Urine Color Yellow Urine Appearance Clear (Clear) Urine pH 6.0 (5.0-8.0) Ur Specific [place] 1.010 (1.001-1.035) Urine Protein Negative (Negative) Urine Glucose (UA) Negative (Negative) Urine Ketones Negative (Negative) Urine Blood Negative (Negative) Urine Nitrite Negative (Negative) Urine Bilirubin Negative (Negative) Urine Urobilinogen <2.0 (<2.0) mg/dL Ur Leukocyte Esterase Large H (Negative) Urine WBC 16 H (0-5) /hpf Ur Squamous Epith Cells <1 (0-4) /hpf Urine Bacteria Rare H (None) /hpf Urine Mucus Rare H (None) /hpf Urine Opiates Screen Not Detected (NotDetected) Ur Oxycodone Screen Not Detected (NotDetected) Urine Methadone Screen Not Detected (NotDetected) Ur Propoxyphene Screen Not Detected (NotDetected) Ur Barbiturates Screen Not Detected (NotDetected) U Tricyclic Antidepress Not Detected (NotDetected) Ur Phencyclidine Scrn Not Detected (NotDetected) Ur Amphetamines Screen Not Detected (NotDetected) U Methamphetamines Scrn Not Detected (NotDetected) U Benzodiazepines Scrn Not Detected (NotDetected) Urine Cocaine Screen Not Detected (NotDetected) U Marijuana (THC) Screen Not Detected (NotDetected) 09/15/20 Range/Units 10:30 WBC (3.8-10.6) k/uL RBC (3.80-5.40) m/uL Hgb (11.4-16.0) gm/dL Hct (34.0-46.0) % MCV (80.0-100.0) fL MCH (25.0-35.0) pg MCHC (31.0-37.0) g/dL RDW (11.5-15.5) % Plt Count (150-450) k/uL MPV Neutrophils % % Lymphocytes % % Monocytes % % Eosinophils % % Basophils % % Neutrophils # (1.3-7.7) k/uL Lymphocytes # (1.0-4.8) k/uL Monocytes # (0-1.0) k/uL Eosinophils # (0-0.7) k/uL Basophils # (0-0.2) k/uL Anisocytosis Macrocytosis PT (9.0-12.0) sec INR (<1.2) APTT (22.0-30.0) sec Sodium (137-145) mmol/L Potassium (3.5-5.1) mmol/L Chloride (98-107) mmol/L Carbon Dioxide (22-30) mmol/L Anion Gap mmol/L BUN (7-17) mg/dL Creatinine (0.52-1.04) mg/dL Est GFR (CKD-EPI)AfAm (>60 ml/min/1.73 sqM) Est GFR (CKD-EPI)NonAf (>60 ml/min/1.73 sqM) Glucose (74-99) mg/dL POC Glucose (mg/dL) 128 H (75-99) mg/dL POC Glu Enamel Cracker ID Noa Soto Calcium (8.4-10.2) mg/dL Total Bilirubin (0.2-1.3) mg/dL AST (14-36) U/L ALT (4-34) U/L Alkaline Phosphatase (38-126) U/L Troponin I (0.000-0.034) ng/mL Total Protein (6.3-8.2) g/dL Albumin (3.5-5.0) g/dL Urine Color Urine Appearance (Clear) Urine pH (5.0-8.0) Ur Specific [place] (1.001-1.035) Urine Protein (Negative) Urine Glucose (UA) (Negative) Urine Ketones (Negative) Urine Blood (Negative) Urine Nitrite (Negative) Urine Bilirubin (Negative) Urine Urobilinogen (<2.0) mg/dL Ur Leukocyte Esterase (Negative) Urine WBC (0-5) /hpf Ur Squamous Epith Cells (0-4) /hpf Urine Bacteria (None) /hpf Urine Mucus (None) /hpf Urine Opiates Screen (NotDetected) Ur Oxycodone Screen (NotDetected) Urine Methadone Screen (NotDetected) Ur Propoxyphene Screen (NotDetected) Ur Barbiturates Screen (NotDetected) U Tricyclic Antidepress (NotDetected) Ur Phencyclidine Scrn (NotDetected) Ur Amphetamines Screen (NotDetected) U Methamphetamines Scrn (NotDetected) U Benzodiazepines Scrn (NotDetected) Urine Cocaine Screen (NotDetected) U Marijuana (THC) Screen (NotDetected) Disposition Clinical Impression: Hypoglycemia, Altered mental status, Anemia Disposition: HOME SELF-CARE Condition: Good Instructions (If sedation given, give patient instructions): Hypoglycemia in a Person with Diabetes (ED) Is patient prescribed a controlled substance at d/c from ED?: No Referrals: Orion Bose MD [Primary Care Provider] - 1-2 days Time of Disposition: 12:41
[2020-09-15 09:53] LABS: Glucose,Whole Blood 41 mg/dL (75-99)
[2020-09-15] MEDS ORDERED: DEXTROSE 50% SYRINGE 50 ML IVP STA (09:54)
[2020-09-15 09:55] LABS: Anisocytosis Slight; Basophils # (A) 0.1 k/uL (0-0.2); Basophils % (A) 1 %; Eosinophils # (A) 0.6 k/uL (0-0.7); Eosinophils % (A) 6 %; HCT 23.1 % (34.0-46.0); HGB 7.5 gm/dL (11.4-16.0); Lymphocytes # (A) 1.1 k/uL (1.0-4.8); Lymphocytes % (A) 13 %; MCH 30.8 pg (25.0-35.0); MCHC 32.3 g/dL (31.0-37.0); MCV 95.5 fL (80.0-100.0); Macrocytosis Slight; Mean Platelet Volume 7.4; Monocytes # (A) 0.4 k/uL (0-1.0); Monocytes % (A) 5 %; Neutrophils # (A) 6.5 k/uL (1.3-7.7); Neutrophils % (A) 74 %; Platelet Count 346 k/uL (150-450); RBC 2.42 m/uL (3.80-5.40); RDW 17.1 % (11.5-15.5); WBC 8.7 k/uL (3.8-10.6)
[2020-09-15 10:03] LABS: INR 0.9 (<1.2); Partial Thromboplastin Time 25.7 sec (22.0-30.0); Prothrombin Time 9.8 sec (9.0-12.0)
--- NOTE | 2020-09-15 10:11 | XR ---
EXAMINATION TYPE: XR chest 2V DATE OF EXAM: 09/15/2020 COMPARISON: Chest x-ray number 29/05/2020 HISTORY: Altered mental status and weakness. TECHNIQUE: Frontal and lateral views of the chest are obtained. FINDINGS: There is low lung volumes and chronic parenchymal changes without suspicious new focal air space opacity, pleural effusion, or pneumothorax seen. Persistent cardiomegaly with stent graft in t he aortic root and atherosclerotic aortic knob. Bilateral hilar prominence consistent with underlying pulmonary artery hypertension. Osseous structures remain demineralized.. IMPRESSION: Cardiomegaly and chronic changes without new acute pulmonary process.
[2020-09-15 10:20] LABS: Albumin 2.9 g/dL (3.5-5.0); Calcium 8.5 mg/dL (8.4-10.2); Potassium 4.6 mmol/L (3.5-5.1); Total Bilirubin 0.5 mg/dL (0.2-1.3); Total Protein 5.7 g/dL (6.3-8.2)
[2020-09-15 10:32] LABS: Glucose,Whole Blood 128 mg/dL (75-99)
[2020-09-15 10:41] LABS: Appearance,Urine Clear (Clear); Bacteria,Urine Rare /hpf; Bilirubin,Urine Negative (Negative); Blood,Urine Negative (Negative); Color,Urine Yellow; Glucose,Urine (UA) Negative (Negative); Ketones,Urine Negative (Negative); Leukocyte Esterase,Urine Large (Negative); Mucus,Urine Rare /hpf; Nitrite,Urine Negative (Negative); Protein,Urine Negative (Negative); Squamous Epithelial Cell,Urine <1 /hpf (0-4); Urobilinogen,Urine <2.0 mg/dL (<2.0); WBC,Urine 16 /hpf (0-5)
[2020-09-15 10:50] LABS: Amphetamine Screen,Urine Not Detected (NotDetected); Barbiturate Screen,Urine Not Detected (NotDetected); Benzodiazepines Screen,Urine Not Detected (NotDetected); Cocaine Screen,Urine Not Detected (NotDetected); Methadone Screen, Urine Not Detected (NotDetected); Opiate Screen,Urine Not Detected (NotDetected); Oxycodone Screen, Urine Not Detected (NotDetected); Phencyclidine Screen,Urine Not Detected (NotDetected); Tricyclic Antidepressant,Urine Not Detected (NotDetected); Urn Cannabinoid Scrn Not Detected (NotDetected)
--- NOTE | 2020-09-15 11:18 | CT ---
EXAMINATION TYPE: CT brain wo con DATE OF EXAM: 09/15/2020 COMPARISON: 07/21/2020 HISTORY: 85-year-old female confusion, altered mental status TECHNIQUE: Examination was done in axial plane without intravenous contrast. Coronal and sagittal r econstructions performed. CT DLP: 1099.4 mGycm Automated exposure control for dose reduction was used. FINDINGS: There is no evidence of acute intracranial hemorrhage, acute ischemic changes, mass, mass-effect, or extra-axial fluid collection. There is no effacement of cerebral sulci or basal subarachnoid cister ns. There is mild ventricular prominence unchanged from prior likely secondary to central cerebral at rophy. Moderate patchy and confluent white matter hypodensities in both cerebral hemispheres are unch anged. There is no midline shift. Sears-white matter distinction is preserved. Visualized paranasal sinuses and mastoid air cells well pneumatized. Orbits and globes are intact. IMPRESSION: Mild to moderate atrophy including some central cerebral volume loss. Moderate burden of chronic smal l vessel ischemic disease. No acute intracranial abnormality seen.
[2020-09-15 11:29] VITALS: BP 162/56
[2020-09-15 12:07] VITALS: PULSE 75
[2020-09-15 12:49] LABS: Glucose,Whole Blood 94 mg/dL (75-99)
== END 2020-09-15 13:22 | disposition home or self-care (01) ==
LOC: EC 09:10
DX: R41.82 Altered mental status, unspecified (principal); D64.9 Anemia, unspecified; E11.649 Type 2 diabetes mellitus with hypoglycemia without coma; I10 Essential (primary) hypertension; K21.9 Gastro-esophageal reflux disease without esophagitis; I25.10 Atherosclerotic heart disease of native coronary artery without angina pectoris; M19.90 Unspecified osteoarthritis, unspecified site; E78.5 Hyperlipidemia, unspecified; Z79.84 Long term (current) use of oral hypoglycemic drugs; Z79.899 Other long term (current) drug therapy; Z79.82 Long term (current) use of aspirin; Z79.01 Long term (current) use of anticoagulants; Z88.1 Allergy status to other antibiotic agents; Z88.6 Allergy status to analgesic agent; Z87.891 Personal history of nicotine dependence; Z85.828 Personal history of other malignant neoplasm of skin
CPT/HCPCS: 36415; 70450; 71046; 80053; 80306; 81001; 84484; 85025; 85610; 85730; 87086; 93005; 96361; 96374; 99285

== ENCOUNTER 2020-09-17 09:36 | Inpatient (IN) | payer MEDICARE ==
[2020-09-17 09:45] LABS: Glucose,Whole Blood 136 mg/dL (75-99)
[2020-09-17] MEDS ORDERED: SODIUM CHLORIDE 0.9% 500 ML 500 ML IV ONE (09:45)
--- NOTE | 2020-09-17 10:09 | ED ---
General Adult HPI - General Chief complaint: Recheck/Abnormal Lab/Rx Stated complaint: Low blood sugar Time Seen by Provider: 09/17/20 09:36 Source: patient, EMS, RN notes reviewed, old records reviewed Mode of arrival: EMS Limitations: no limitations - History of Present Illness Initial comments: This 85-year-old female with a recent diagnosis and discharged from this facility of urinary tract infection with E. coli faecalis and also was here 2 days ago with hypoglycemia who returns today by EMS with altered mental status and a blood sugar 52. She was found be lethargic and altered in sensorium unable answer questions she was treated by paramedics and brought here for further evaluation she is more awake at this time. She denies any pain fevers chills nausea vomiting sweats. - Related Data Home Medications Medication Instructions Recorded Confirmed Potassium Chloride [K-Tab ER] 10 meq PO DAILY 06/23/14 09/17/20 hydrALAZINE HCL [Apresoline] 50 mg PO TID 12/08/16 09/17/20 Magnesium Oxide 400 mg PO DAILY 02/17/17 09/17/20 glipiZIDE XL [Glucotrol XL] 10 mg PO AC-BID 11/17/17 09/17/20 Apixaban [Eliquis] 2.5 mg PO BID 01/29/18 09/17/20 Ascorbic Acid [Vitamin C] 500 mg PO DAILY 01/29/18 09/17/20 Cholecalciferol [Vitamin D3] 800 unit PO DAILY 07/21/20 09/17/20 Docusate [Colace] 200 mg PO DAILY 07/21/20 09/17/20 lisinopriL [Zestril] 2.5 mg PO HS 07/21/20 09/17/20 Acetaminophen [Tylenol] 650 mg PO Q4H PRN 09/06/20 09/17/20 Aspirin 81 mg PO DAILY@0900 09/06/20 09/17/20 Diltiazem HCl [Cardizem] 90 mg PO BID 09/06/20 09/17/20 Lovastatin [Altoprev] 20 mg PO HS 09/06/20 09/17/20 Multivitamins, Thera [Multivitamin 1 tab PO DAILY 09/06/20 09/17/20 (formulary)] Polyethylene Glycol 3350 [Miralax] 17 gm PO DAILY 09/06/20 09/17/20 Vitamin E 400 unit PO DAILY 09/06/20 09/17/20 allopurinoL [Zyloprim] 150 mg PO DAILY 09/06/20 09/17/20 hydrALAZINE HCL 25 mg PO TID 09/06/20 09/17/20 Previous Rx's Medication Instructions Recorded Famotidine [Pepcid] 20 mg PO DAILY #30 tab 11/23/17 Furosemide [Lasix] 40 mg PO BID@0900,1600 tab 07/30/20 Metoprolol Tartrate [Lopressor] 75 mg PO BID #60 tab 07/30/20 traMADol HCl [Ultram] 50 mg PO QID #120 tab 07/30/20 Amoxicillin/Potassium Clav 1 tab PO Q12HR 1 Days #14 tab 09/10/20 [Augmentin 500-125 Tablet] Allergies Allergy/AdvReac Type Severity Reaction Status Date / Time cephalexin monohydrate Allergy Rash/Hives Verified 09/17/20 10:18 [From Keflex] rofecoxib [From Vioxx] Allergy Unknown Verified 09/17/20 10:18 doxycycline [From Vibramycin] AdvReac Nausea & Verified 09/17/20 10:18 Vomiting Review of Systems ROS Statement: Those systems with pertinent positive or pertinent negative responses have been documented in the HPI. ROS Other: All systems not noted in ROS Statement are negative. Past Medical History Past Medical History: Coronary Artery Disease (CAD), Cancer, Diabetes Mellitus, GERD/Reflux, Hyperlipidemia, Hypertension, Osteoarthritis (OA), Renal Disease Additional Past Medical History / Comment(s): USES A WALKER, LEG SWELLING, MURMUR, SINUS PROBLEMS, BENIGN POLYPS, INCONT OF URINE, PAST HX ANEMIA, "kidney function-3.5", severe aortic stenosis, patent foramen ovale. SKIN CANCER History of Any Multi-Drug Resistant Organisms: None Reported Past Surgical History: Heart Catheterization, Heart Catheterization With Stent Additional Past Surgical History / Comment(s): CATARACT SURGERY, COLONOSCOPY, bisi, TAVR 01/03/2018. "STENT IN [facility]". Past Anesthesia/Blood Transfusion Reactions: No Reported Reaction Date of Last Stent Placement:: January 03, 2018 Past Psychological History: No Psychological Hx Reported Smoking Status: Former smoker Past Alcohol Use History: None Reported Past Drug Use History: None Reported - Past Family History Mother Family Medical History: CVA/TIA, Diabetes Mellitus Father Family Medical History: Cancer, Coronary Artery Disease (CAD) Brother(s) Family Medical History: CVA/TIA, Diabetes Mellitus Sister(s) Family Medical History: Dementia Son(s) Family Medical History: No Reported History Daughter(s) Family Medical History: No Reported History General Exam - General Exam Comments Initial Comments: This is a well-developed well-nourished awake alert female Limitations: no limitations General appearance: alert, in no apparent distress Head exam: Present: atraumatic, normocephalic, normal inspection Eye exam: Present: normal appearance, PERRL, EOMI. Absent: scleral icterus, conjunctival injection, periorbital swelling ENT exam: Present: mucous membranes dry Neck exam: Present: normal inspection. Absent: tenderness, meningismus, lymphadenopathy Respiratory exam: Present: normal lung sounds bilaterally. Absent: respiratory distress, wheezes, rales, rhonchi, stridor Cardiovascular Exam: Present: regular rate, normal rhythm, normal heart sounds. Absent: systolic murmur, diastolic murmur, rubs, gallop, clicks GI/Abdominal exam: Present: soft, normal bowel sounds. Absent: distended, tenderness, guarding, rebound, rigid Extremities exam: Present: full ROM, normal capillary refill, other (Additionally there is a wound noted to the bottom of the right heel). Absent: tenderness, pedal edema, joint swelling, calf tenderness Back exam: Present: normal inspection Neurological exam: Present: alert, oriented X3, CN II-XII intact Psychiatric exam: Present: normal affect, normal mood Skin exam: Present: warm, dry, intact, normal color. Absent: rash Course Vital Signs 09/17/20 09/17/20 09/17/20 09:39 10:30 10:32 Temperature 95.5 F L Pulse Rate 65 68 Respiratory 18 21 Rate Blood Pressure 109/96 161/69 O2 Sat by Pulse 99 96 Oximetry 09/17/20 09/17/20 09/17/20 11:00 11:30 12:00 Temperature Pulse Rate 62 68 67 Respiratory 21 16 15 Rate Blood Pressure 159/72 142/63 146/78 O2 Sat by Pulse 97 97 Oximetry 09/17/20 09/17/20 09/17/20 12:20 12:30 13:00 Temperature 97.8 F Pulse Rate 63 72 Respiratory 14 25 H Rate Blood Pressure 138/67 144/48 O2 Sat by Pulse 97 Oximetry 09/17/20 09/17/20 13:30 14:00 Temperature Pulse Rate 78 76 Respiratory 14 14 Rate Blood Pressure 146/51 140/78 O2 Sat by Pulse 97 98 Oximetry Medical Decision Making - Medical Decision Making I did discuss findings with the patient as well as her son and with Dr. Bose the patient be admitted for IV hydration and monitoring of blood glucose levels. - Lab Data Result diagrams: 09/17/20 10:10 09/17/20 10:10 Lab Results 09/17/20 09/17/20 09/17/20 Range/Units 09:43 10:10 10:10 WBC 7.7 (3.8-10.6) k/uL RBC 2.55 L (3.80-5.40) m/uL Hgb 7.9 L (11.4-16.0) gm/dL Hct 24.3 L (34.0-46.0) % MCV 95.4 (80.0-100.0) fL MCH 31.2 (25.0-35.0) pg MCHC 32.7 (31.0-37.0) g/dL RDW 16.9 H (11.5-15.5) % Plt Count 412 (150-450) k/uL MPV 7.4 Neutrophils % 78 % Lymphocytes % 11 % Monocytes % 5 % Eosinophils % 4 % Basophils % 1 % Neutrophils # 6.0 (1.3-7.7) k/uL Lymphocytes # 0.9 L (1.0-4.8) k/uL Monocytes # 0.4 (0-1.0) k/uL Eosinophils # 0.3 (0-0.7) k/uL Basophils # 0.0 (0-0.2) k/uL Anisocytosis Slight PT 9.8 (9.0-12.0) sec INR 0.9 (<1.2) APTT 28.2 (22.0-30.0) sec Sodium (137-145) mmol/L Potassium (3.5-5.1) mmol/L Chloride (98-107) mmol/L Carbon Dioxide (22-30) mmol/L Anion Gap mmol/L BUN (7-17) mg/dL Creatinine (0.52-1.04) mg/dL Est GFR (CKD-EPI)AfAm (>60 ml/min/1.73 sqM) Est GFR (CKD-EPI)NonAf (>60 ml/min/1.73 sqM) Glucose (74-99) mg/dL POC Glucose (mg/dL) 136 H (75-99) mg/dL POC Glu Emergency Medical Service Manager ID Tung Arce Calcium (8.4-10.2) mg/dL Total Bilirubin (0.2-1.3) mg/dL AST (14-36) U/L ALT (4-34) U/L Alkaline Phosphatase (38-126) U/L Creatine Kinase (30-135) U/L Troponin I (0.000-0.034) ng/mL Total Protein (6.3-8.2) g/dL Albumin (3.5-5.0) g/dL Urine Color Urine Appearance (Clear) Urine pH (5.0-8.0) Ur Specific [place] (1.001-1.035) Urine Protein (Negative) Urine Glucose (UA) (Negative) Urine Ketones (Negative) Urine Blood (Negative) Urine Nitrite (Negative) Urine Bilirubin (Negative) Urine Urobilinogen (<2.0) mg/dL Ur Leukocyte Esterase (Negative) Urine RBC (0-5) /hpf Urine WBC (0-5) /hpf Ur Squamous Epith Cells (0-4) /hpf Urine Mucus (None) /hpf Urine Opiates Screen (NotDetected) Ur Oxycodone Screen (NotDetected) Urine Methadone Screen (NotDetected) Ur Propoxyphene Screen (NotDetected) Ur Barbiturates Screen (NotDetected) U Tricyclic Antidepress (NotDetected) Ur Phencyclidine Scrn (NotDetected) Ur Amphetamines Screen (NotDetected) U Methamphetamines Scrn (NotDetected) U Benzodiazepines Scrn (NotDetected) Urine Cocaine Screen (NotDetected) U Marijuana (THC) Screen (NotDetected) 09/17/20 09/17/20 09/17/20 Range/Units 10:10 10:10 11:55 WBC (3.8-10.6) k/uL RBC (3.80-5.40) m/uL Hgb (11.4-16.0) gm/dL Hct (34.0-46.0) % MCV (80.0-100.0) fL MCH (25.0-35.0) pg MCHC (31.0-37.0) g/dL RDW (11.5-15.5) % Plt Count (150-450) k/uL MPV Neutrophils % % Lymphocytes % % Monocytes % % Eosinophils % % Basophils % % Neutrophils # (1.3-7.7) k/uL Lymphocytes # (1.0-4.8) k/uL Monocytes # (0-1.0) k/uL Eosinophils # (0-0.7) k/uL Basophils # (0-0.2) k/uL Anisocytosis PT (9.0-12.0) sec INR (<1.2) APTT (22.0-30.0) sec Sodium 135 L (137-145) mmol/L Potassium 4.9 (3.5-5.1) mmol/L Chloride 104 (98-107) mmol/L Carbon Dioxide 26 (22-30) mmol/L Anion Gap 5 mmol/L BUN 39 H (7-17) mg/dL Creatinine 1.30 H (0.52-1.04) mg/dL Est GFR (CKD-EPI)AfAm 43 (>60 ml/min/1.73 sqM) Est GFR (CKD-EPI)NonAf 37 (>60 ml/min/1.73 sqM) Glucose 112 H (74-99) mg/dL POC Glucose (mg/dL) (75-99) mg/dL POC Glu Emergency Medical Service Manager ID Calcium 8.5 (8.4-10.2) mg/dL Total Bilirubin 0.5 (0.2-1.3) mg/dL AST 26 (14-36) U/L ALT 11 (4-34) U/L Alkaline Phosphatase 60 (38-126) U/L Creatine Kinase 53 (30-135) U/L Troponin I <0.012 (0.000-0.034) ng/mL Total Protein 6.0 L (6.3-8.2) g/dL Albumin 3.1 L (3.5-5.0) g/dL Urine Color Light Yellow Urine Appearance Clear (Clear) Urine pH 7.0 (5.0-8.0) Ur Specific [place] 1.009 (1.001-1.035) Urine Protein Trace H (Negative) Urine Glucose (UA) Negative (Negative) Urine Ketones Negative (Negative) Urine Blood Trace H (Negative) Urine Nitrite Negative (Negative) Urine Bilirubin Negative (Negative) Urine Urobilinogen <2.0 (<2.0) mg/dL Ur Leukocyte Esterase Small H (Negative) Urine RBC 14 H (0-5) /hpf Urine WBC 3 (0-5) /hpf Ur Squamous Epith Cells 3 (0-4) /hpf Urine Mucus Rare H (None) /hpf Urine Opiates Screen Not Detected (NotDetected) Ur Oxycodone Screen Not Detected (NotDetected) Urine Methadone Screen Not Detected (NotDetected) Ur Propoxyphene Screen Not Detected (NotDetected) Ur Barbiturates Screen Not Detected (NotDetected) U Tricyclic Antidepress Not Detected (NotDetected) Ur Phencyclidine Scrn Not Detected (NotDetected) Ur Amphetamines Screen Not Detected (NotDetected) U Methamphetamines Scrn Not Detected (NotDetected) U Benzodiazepines Scrn Not Detected (NotDetected) Urine Cocaine Screen Not Detected (NotDetected) U Marijuana (THC) Screen Not Detected (NotDetected) - EKG Data -: EKG Interpreted by Me EKG Comments: Sinus rhythm with first degree AV block rate 67. Interval 220 QRS duration 104 QT since QTC 440/464 left exodeviation - Radiology Data Radiology results: report reviewed (Reviewed as well as report similar to previous findings evidence of increased pulmonary vascular markings consistent with possible CHF), image reviewed Disposition Clinical Impression: Hypoglycemia, Mental status alteration, Dehydration, Renal insufficiency, Failure to thrive Disposition: ADMITTED IP TO THIS HOSP Condition: Fair Referrals: Orion Bose MD [Primary Care Provider] - 1-2 days
[2020-09-17 10:26] LABS: Anisocytosis Slight; Basophils % (A) 1 %; Eosinophils # (A) 0.3 k/uL (0-0.7); Eosinophils % (A) 4 %; HCT 24.3 % (34.0-46.0); HGB 7.9 gm/dL (11.4-16.0); Lymphocytes # (A) 0.9 k/uL (1.0-4.8); Lymphocytes % (A) 11 %; MCH 31.2 pg (25.0-35.0); MCHC 32.7 g/dL (31.0-37.0); MCV 95.4 fL (80.0-100.0); Mean Platelet Volume 7.4; Monocytes # (A) 0.4 k/uL (0-1.0); Monocytes % (A) 5 %; Neutrophils % (A) 78 %; Platelet Count 412 k/uL (150-450); RBC 2.55 m/uL (3.80-5.40); RDW 16.9 % (11.5-15.5); WBC 7.7 k/uL (3.8-10.6)
[2020-09-17 10:38] LABS: INR 0.9 (<1.2); Partial Thromboplastin Time 28.2 sec (22.0-30.0); Prothrombin Time 9.8 sec (9.0-12.0)
[2020-09-17 10:44] LABS: Albumin 3.1 g/dL (3.5-5.0); Calcium 8.5 mg/dL (8.4-10.2); Potassium 4.9 mmol/L (3.5-5.1); Total Bilirubin 0.5 mg/dL (0.2-1.3)
--- NOTE | 2020-09-17 11:06 | XR ---
EXAMINATION TYPE: XR chest 2V DATE OF EXAM: 09/17/2020 COMPARISON: Prior chest x-ray 09/15/2020 HISTORY: Altered mental status, confusion, low blood sugar TECHNIQUE: Frontal and lateral views of the chest are obtained. FINDINGS: Patient is status post TAVR procedure. Prominent lung volumes are suggestive of underlying COPD. Patchy basilar density is present, there is prominence the central pulmonary vascularity, torri hilar vascular indistinctness and increase in interstitium. Prominence of pulmonary artery could be d ue to pulmonary artery hypertension. No evident pneumothorax. Heart is enlarged. Aorta is dense. IMPRESSION: Findings are similar to prior exam. Correlate for congestive heart failure, pulmonary ve nous hypertension and interstitial edema, there may be minimal effusion.
[2020-09-17 12:22] LABS: Appearance,Urine Clear (Clear); Bilirubin,Urine Negative (Negative); Blood,Urine Trace (Negative); Color,Urine Light Yellow; Glucose,Urine (UA) Negative (Negative); Ketones,Urine Negative (Negative); Leukocyte Esterase,Urine Small (Negative); Mucus,Urine Rare /hpf; Nitrite,Urine Negative (Negative); Protein,Urine Trace (Negative); RBC,Urine 14 /hpf (0-5); Specific Gravity,Urine 1.009 (1.001-1.035); Squamous Epithelial Cell,Urine 3 /hpf (0-4); Urobilinogen,Urine <2.0 mg/dL (<2.0); WBC,Urine 3 /hpf (0-5)
[2020-09-17 12:27] LABS: Amphetamine Screen,Urine Not Detected (NotDetected); Barbiturate Screen,Urine Not Detected (NotDetected); Benzodiazepines Screen,Urine Not Detected (NotDetected); Cocaine Screen,Urine Not Detected (NotDetected); Methadone Screen, Urine Not Detected (NotDetected); Opiate Screen,Urine Not Detected (NotDetected); Oxycodone Screen, Urine Not Detected (NotDetected); Phencyclidine Screen,Urine Not Detected (NotDetected); Tricyclic Antidepressant,Urine Not Detected (NotDetected); Urn Cannabinoid Scrn Not Detected (NotDetected)
[2020-09-17] MEDS ORDERED: traMADol 50 MG TAB PO STA (14:04)
--- NOTE | 2020-09-17 14:33 | ED ---
Medical Decision Making - Lab Data Result diagrams: 09/17/20 10:10 09/17/20 10:10 Lab Results 09/17/20 09/17/20 09/17/20 Range/Units 09:43 10:10 10:10 WBC 7.7 (3.8-10.6) k/uL RBC 2.55 L (3.80-5.40) m/uL Hgb 7.9 L (11.4-16.0) gm/dL Hct 24.3 L (34.0-46.0) % MCV 95.4 (80.0-100.0) fL MCH 31.2 (25.0-35.0) pg MCHC 32.7 (31.0-37.0) g/dL RDW 16.9 H (11.5-15.5) % Plt Count 412 (150-450) k/uL MPV 7.4 Neutrophils % 78 % Lymphocytes % 11 % Monocytes % 5 % Eosinophils % 4 % Basophils % 1 % Neutrophils # 6.0 (1.3-7.7) k/uL Lymphocytes # 0.9 L (1.0-4.8) k/uL Monocytes # 0.4 (0-1.0) k/uL Eosinophils # 0.3 (0-0.7) k/uL Basophils # 0.0 (0-0.2) k/uL Anisocytosis Slight PT 9.8 (9.0-12.0) sec INR 0.9 (<1.2) APTT 28.2 (22.0-30.0) sec Sodium (137-145) mmol/L Potassium (3.5-5.1) mmol/L Chloride (98-107) mmol/L Carbon Dioxide (22-30) mmol/L Anion Gap mmol/L BUN (7-17) mg/dL Creatinine (0.52-1.04) mg/dL Est GFR (CKD-EPI)AfAm (>60 ml/min/1.73 sqM) Est GFR (CKD-EPI)NonAf (>60 ml/min/1.73 sqM) Glucose (74-99) mg/dL POC Glucose (mg/dL) 136 H (75-99) mg/dL POC Glu Cell Phone Repair Technician ID Tung Arce Calcium (8.4-10.2) mg/dL Total Bilirubin (0.2-1.3) mg/dL AST (14-36) U/L ALT (4-34) U/L Alkaline Phosphatase (38-126) U/L Creatine Kinase (30-135) U/L Troponin I (0.000-0.034) ng/mL Total Protein (6.3-8.2) g/dL Albumin (3.5-5.0) g/dL Urine Color Urine Appearance (Clear) Urine pH (5.0-8.0) Ur Specific [place] (1.001-1.035) Urine Protein (Negative) Urine Glucose (UA) (Negative) Urine Ketones (Negative) Urine Blood (Negative) Urine Nitrite (Negative) Urine Bilirubin (Negative) Urine Urobilinogen (<2.0) mg/dL Ur Leukocyte Esterase (Negative) Urine RBC (0-5) /hpf Urine WBC (0-5) /hpf Ur Squamous Epith Cells (0-4) /hpf Urine Mucus (None) /hpf Urine Opiates Screen (NotDetected) Ur Oxycodone Screen (NotDetected) Urine Methadone Screen (NotDetected) Ur Propoxyphene Screen (NotDetected) Ur Barbiturates Screen (NotDetected) U Tricyclic Antidepress (NotDetected) Ur Phencyclidine Scrn (NotDetected) Ur Amphetamines Screen (NotDetected) U Methamphetamines Scrn (NotDetected) U Benzodiazepines Scrn (NotDetected) Urine Cocaine Screen (NotDetected) U Marijuana (THC) Screen (NotDetected) 09/17/20 09/17/20 09/17/20 Range/Units 10:10 10:10 11:55 WBC (3.8-10.6) k/uL RBC (3.80-5.40) m/uL Hgb (11.4-16.0) gm/dL Hct (34.0-46.0) % MCV (80.0-100.0) fL MCH (25.0-35.0) pg MCHC (31.0-37.0) g/dL RDW (11.5-15.5) % Plt Count (150-450) k/uL MPV Neutrophils % % Lymphocytes % % Monocytes % % Eosinophils % % Basophils % % Neutrophils # (1.3-7.7) k/uL Lymphocytes # (1.0-4.8) k/uL Monocytes # (0-1.0) k/uL Eosinophils # (0-0.7) k/uL Basophils # (0-0.2) k/uL Anisocytosis PT (9.0-12.0) sec INR (<1.2) APTT (22.0-30.0) sec Sodium 135 L (137-145) mmol/L Potassium 4.9 (3.5-5.1) mmol/L Chloride 104 (98-107) mmol/L Carbon Dioxide 26 (22-30) mmol/L Anion Gap 5 mmol/L BUN 39 H (7-17) mg/dL Creatinine 1.30 H (0.52-1.04) mg/dL Est GFR (CKD-EPI)AfAm 43 (>60 ml/min/1.73 sqM) Est GFR (CKD-EPI)NonAf 37 (>60 ml/min/1.73 sqM) Glucose 112 H (74-99) mg/dL POC Glucose (mg/dL) (75-99) mg/dL POC Glu Cell Phone Repair Technician ID Calcium 8.5 (8.4-10.2) mg/dL Total Bilirubin 0.5 (0.2-1.3) mg/dL AST 26 (14-36) U/L ALT 11 (4-34) U/L Alkaline Phosphatase 60 (38-126) U/L Creatine Kinase 53 (30-135) U/L Troponin I <0.012 (0.000-0.034) ng/mL Total Protein 6.0 L (6.3-8.2) g/dL Albumin 3.1 L (3.5-5.0) g/dL Urine Color Light Yellow Urine Appearance Clear (Clear) Urine pH 7.0 (5.0-8.0) Ur Specific [place] 1.009 (1.001-1.035) Urine Protein Trace H (Negative) Urine Glucose (UA) Negative (Negative) Urine Ketones Negative (Negative) Urine Blood Trace H (Negative) Urine Nitrite Negative (Negative) Urine Bilirubin Negative (Negative) Urine Urobilinogen <2.0 (<2.0) mg/dL Ur Leukocyte Esterase Small H (Negative) Urine RBC 14 H (0-5) /hpf Urine WBC 3 (0-5) /hpf Ur Squamous Epith Cells 3 (0-4) /hpf Urine Mucus Rare H (None) /hpf Urine Opiates Screen Not Detected (NotDetected) Ur Oxycodone Screen Not Detected (NotDetected) Urine Methadone Screen Not Detected (NotDetected) Ur Propoxyphene Screen Not Detected (NotDetected) Ur Barbiturates Screen Not Detected (NotDetected) U Tricyclic Antidepress Not Detected (NotDetected) Ur Phencyclidine Scrn Not Detected (NotDetected) Ur Amphetamines Screen Not Detected (NotDetected) U Methamphetamines Scrn Not Detected (NotDetected) U Benzodiazepines Scrn Not Detected (NotDetected) Urine Cocaine Screen Not Detected (NotDetected) U Marijuana (THC) Screen Not Detected (NotDetected) Disposition Clinical Impression: Hypoglycemia, Mental status alteration, Dehydration, Renal insufficiency, Failure to thrive, Chronic anemia Disposition: ADMITTED IP TO THIS [facility] Condition: Fair Referrals: Orion Bose MD [Primary Care Provider] - 1-2 days
[2020-09-17] MEDS ORDERED: NALOXONE 0.4 MG/ML 1 ML VIAL IV PRN (14:34)
[2020-09-17] MEDS ORDERED: ACETAMINOPHEN TAB 325 MG TAB PO PRN (14:36)
[2020-09-17 15:31] LABS: Glucose,Whole Blood 151 mg/dL (75-99)
[2020-09-17] MEDS: SODIUM CHLORIDE 0.9% 1,000 ML IV SCH (15:38)
[2020-09-17] MEDS: hydrALAZINE HCL 25 MG TAB PO SCH ×2 (17:23→22:37)
[2020-09-17 17:58] LABS: Glucose,Whole Blood 63 mg/dL (75-99)
[2020-09-17] MEDS: glipiZIDE 10 MG TAB PO SCH (18:01)
[2020-09-17] MEDS: traMADol 50 MG TAB PO SCH ×2 (18:02→22:43)
[2020-09-17] MEDS: FUROSEMIDE 40 MG TAB PO SCH (18:05)
[2020-09-17 18:22] LABS: Glucose,Whole Blood 70 mg/dL (75-99)
[2020-09-17 18:57] LABS: Glucose,Whole Blood 108 mg/dL (75-99)
[2020-09-17 20:59] LABS: Glucose,Whole Blood 58 mg/dL (75-99)
[2020-09-17] MEDS ORDERED: AMOXIC-POT CLAV 500-125 MG 1 EACH TAB PO SCH (21:00)
[2020-09-17 21:17] LABS: Glucose,Whole Blood 66 mg/dL (75-99)
[2020-09-17 21:46] LABS: Glucose,Whole Blood 98 mg/dL (75-99)
[2020-09-17] MEDS: APIXABAN 2.5 MG TABLET PO SCH (22:34)
[2020-09-17] MEDS: DILTIAZEM ORAL 30 MG TAB PO SCH (22:34)
[2020-09-17] MEDS: ATORVASTATIN 10 MG TAB PO SCH (22:34)
[2020-09-17] MEDS: METOPROLOL TARTRATE 25 MG TAB PO SCH (22:34)
[2020-09-18 00:39] LABS: Glucose,Whole Blood 64 mg/dL (75-99)
[2020-09-18] MEDS ORDERED: DEXTROSE 50% SYRINGE 50 ML IVP ONE ×2 (00:39→03:39)
[2020-09-18 01:06] LABS: Glucose,Whole Blood 125 mg/dL (75-99)
[2020-09-18 03:39] LABS: Glucose,Whole Blood 56 mg/dL (75-99)
[2020-09-18 03:55] LABS: Glucose,Whole Blood 178 mg/dL (75-99)
[2020-09-18] MEDS: SODIUM CHLORIDE 0.9% 1,000 ML IV SCH ×2 (04:49→16:53)
[2020-09-18] MEDS: glipiZIDE 10 MG TAB PO SCH (05:38)
[2020-09-18 07:07] LABS: Glucose,Whole Blood 54 mg/dL (75-99)
[2020-09-18 07:38] LABS: Glucose,Whole Blood 89 mg/dL (75-99)
--- NOTE | 2020-09-18 08:37 | P.HPIM ---
History of Present Illness H&P Date: 09/18/20 Chief Complaint: Poor by mouth intake with hypoglycemia. This is a history and physical an 85-year-old white female with known history of diabetes gout hypertension and hyperlipidemia who was recently discharged for element of renal failure. The patient started having difficulty tolerating by mouth intake and blood sugar has been labile. We will adjust her medications. No significant fever or chills stated. She is resting comfortably. I have discussed with her increasing her by mouth intake to stabilize her sugar. Review of Systems Constitutional: Reports fatigue, Reports weakness, Denies chills, Denies fever Ears, nose, mouth and throat: Denies headache, Denies sore throat Cardiovascular: Denies chest pain, Denies shortness of breath Gastrointestinal: Denies abdominal pain, Denies diarrhea, Denies nausea, Denies vomiting Genitourinary: Denies dysuria, Denies hematuria Musculoskeletal: Denies myalgias Past Medical History Past Medical History: Coronary Artery Disease (CAD), Cancer, Diabetes Mellitus, GERD/Reflux, Hyperlipidemia, Hypertension, Osteoarthritis (OA), Renal Disease Additional Past Medical History / Comment(s): USES A WALKER, LEG SWELLING, MURMUR, SINUS PROBLEMS, BENIGN POLYPS, INCONT OF URINE, PAST HX ANEMIA, "kidney function-3.5", severe aortic stenosis, patent foramen ovale. SKIN CANCER History of Any Multi-Drug Resistant Organisms: None Reported Past Surgical History: Heart Catheterization, Heart Catheterization With Stent Additional Past Surgical History / Comment(s): CATARACT SURGERY, COLONOSCOPY, bisi, TAVR 01/03/2018. "STENT IN [facility]". Past Anesthesia/Blood Transfusion Reactions: No Reported Reaction Date of Last Stent Placement:: January 03, 2018 Past Psychological History: No Psychological Hx Reported Additional Psychological History / Comment(s): lives with her and the family home. Stopped smoking 20 years ago. No international travel. The experience. No animal exposures Smoking Status: Former smoker Past Alcohol Use History: None Reported Additional Past Alcohol Use History / Comment(s): Patient smoked one to 2 packs per day for 40 years and quit in 1989. Past Drug Use History: None Reported - Past Family History Mother Family Medical History: CVA/TIA, Diabetes Mellitus Father Family Medical History: Cancer, Coronary Artery Disease (CAD) Brother(s) Family Medical History: CVA/TIA, Diabetes Mellitus Sister(s) Family Medical History: Dementia Son(s) Family Medical History: No Reported History Daughter(s) Family Medical History: No Reported History Medications and Allergies Home Medications Medication Instructions Recorded Confirmed Type Potassium Chloride [K-Tab ER] 10 meq PO DAILY 06/23/14 09/17/20 History hydrALAZINE HCL [Apresoline] 50 mg PO TID 12/08/16 09/17/20 History Magnesium Oxide 400 mg PO DAILY 02/17/17 09/17/20 History glipiZIDE XL [Glucotrol XL] 10 mg PO AC-BID 11/17/17 09/17/20 History Famotidine [Pepcid] 20 mg PO DAILY #30 tab 11/23/17 09/17/20 Rx Apixaban [Eliquis] 2.5 mg PO BID 01/29/18 09/17/20 History Ascorbic Acid [Vitamin C] 500 mg PO DAILY 01/29/18 09/17/20 History Cholecalciferol [Vitamin D3] 800 unit PO DAILY 07/21/20 09/17/20 History Docusate [Colace] 200 mg PO DAILY 07/21/20 09/17/20 History lisinopriL [Zestril] 2.5 mg PO HS 07/21/20 09/17/20 History Furosemide [Lasix] 40 mg PO BID@0900,1600 tab 07/30/20 09/17/20 Rx Metoprolol Tartrate [Lopressor] 75 mg PO BID #60 tab 07/30/20 09/17/20 Rx traMADol HCl [Ultram] 50 mg PO QID #120 tab 07/30/20 09/17/20 Rx Acetaminophen [Tylenol] 650 mg PO Q4H PRN 09/06/20 09/17/20 History Aspirin 81 mg PO DAILY@0900 09/06/20 09/17/20 History Diltiazem HCl [Cardizem] 90 mg PO BID 09/06/20 09/17/20 History Lovastatin [Altoprev] 20 mg PO HS 09/06/20 09/17/20 History Multivitamins, Thera [Multivitamin 1 tab PO DAILY 09/06/20 09/17/20 History (formulary)] Polyethylene Glycol 3350 [Miralax] 17 gm PO DAILY 09/06/20 09/17/20 History Vitamin E 400 unit PO DAILY 09/06/20 09/17/20 History allopurinoL [Zyloprim] 150 mg PO DAILY 09/06/20 09/17/20 History hydrALAZINE HCL 25 mg PO TID 09/06/20 09/17/20 History Amoxicillin/Potassium Clav 1 tab PO Q12HR 1 Days #14 tab 09/10/20 09/17/20 Rx [Augmentin 500-125 Tablet] Allergies Allergy/AdvReac Type Severity Reaction Status Date / Time cephalexin monohydrate Allergy Rash/Hives Verified 09/17/20 10:18 [From Keflex] rofecoxib [From Vioxx] Allergy Unknown Verified 09/17/20 10:18 doxycycline [From Vibramycin] AdvReac Nausea & Verified 09/17/20 10:18 Vomiting Physical Exam Vitals: Vital Signs Temp Pulse Pulse Resp BP BP Pulse Ox 09/18/20 02:05 98.2 F 86 17 132/74 96 09/17/20 20:45 18 09/17/20 20:30 97.4 F L 62 18 144/74 98 09/17/20 20:00 98.7 F 66 16 108/26 98 09/17/20 19:00 75 19 121/49 95 09/17/20 18:00 73 21 131/51 97 09/17/20 17:00 73 20 125/49 97 09/17/20 16:00 73 20 130/61 96 09/17/20 14:00 76 14 140/78 98 09/17/20 13:30 78 14 146/51 97 09/17/20 13:00 72 25 H 144/48 09/17/20 12:30 63 14 138/67 97 09/17/20 12:20 97.8 F 09/17/20 12:00 67 15 146/78 09/17/20 11:30 68 16 142/63 97 09/17/20 11:00 62 21 159/72 97 09/17/20 10:32 68 21 161/69 96 09/17/20 10:30 95.5 F L 09/17/20 09:39 65 18 109/96 99 Intake and Output 09/17/20 09/18/20 09/18/20 22:59 06:59 14:59 Other: Voiding Method Diaper # Voids 1 Weight 77.111 kg - Constitutional General appearance: thin - EENT Eyes: no abnormal pupil - Respiratory Respiratory: bilateral: CTA - Cardiovascular Rhythm: regular Heart sounds: normal: S1, S2 Abnormal Heart Sounds: no S3 Gallop - Gastrointestinal General gastrointestinal: soft, no tenderness - Neurologic Neurologic: CNII-XII intact Results CBC & Chem 7: 09/17/20 10:10 09/17/20 10:10 Labs: Abnormal Lab Results - Last 24 Hours (Table) 09/17/20 09/17/20 09/17/20 Range/Units 09:43 10:10 10:10 RBC 2.55 L (3.80-5.40) m/uL Hgb 7.9 L (11.4-16.0) gm/dL Hct 24.3 L (34.0-46.0) % RDW 16.9 H (11.5-15.5) % Lymphocytes # 0.9 L (1.0-4.8) k/uL Sodium 135 L (137-145) mmol/L BUN 39 H (7-17) mg/dL Creatinine 1.30 H (0.52-1.04) mg/dL Glucose 112 H (74-99) mg/dL POC Glucose (mg/dL) 136 H (75-99) mg/dL Total Protein 6.0 L (6.3-8.2) g/dL Albumin 3.1 L (3.5-5.0) g/dL Urine Protein (Negative) Urine Blood (Negative) Ur Leukocyte Esterase (Negative) Urine RBC (0-5) /hpf Urine Mucus (None) /hpf 09/17/20 09/17/20 09/17/20 Range/Units 11:55 15:29 17:57 RBC (3.80-5.40) m/uL Hgb (11.4-16.0) gm/dL Hct (34.0-46.0) % RDW (11.5-15.5) % Lymphocytes # (1.0-4.8) k/uL Sodium (137-145) mmol/L BUN (7-17) mg/dL Creatinine (0.52-1.04) mg/dL Glucose (74-99) mg/dL POC Glucose (mg/dL) 151 H 63 L (75-99) mg/dL Total Protein (6.3-8.2) g/dL Albumin (3.5-5.0) g/dL Urine Protein Trace H (Negative) Urine Blood Trace H (Negative) Ur Leukocyte Esterase Small H (Negative) Urine RBC 14 H (0-5) /hpf Urine Mucus Rare H (None) /hpf 09/17/20 09/17/20 09/17/20 Range/Units 18:21 18:50 20:58 RBC (3.80-5.40) m/uL Hgb (11.4-16.0) gm/dL Hct (34.0-46.0) % RDW (11.5-15.5) % Lymphocytes # (1.0-4.8) k/uL Sodium (137-145) mmol/L BUN (7-17) mg/dL Creatinine (0.52-1.04) mg/dL Glucose (74-99) mg/dL POC Glucose (mg/dL) 70 L 108 H 58 L (75-99) mg/dL Total Protein (6.3-8.2) g/dL Albumin (3.5-5.0) g/dL Urine Protein (Negative) Urine Blood (Negative) Ur Leukocyte Esterase (Negative) Urine RBC (0-5) /hpf Urine Mucus (None) /hpf 09/17/20 09/18/20 09/18/20 Range/Units 21:16 00:38 00:54 RBC (3.80-5.40) m/uL Hgb (11.4-16.0) gm/dL Hct (34.0-46.0) % RDW (11.5-15.5) % Lymphocytes # (1.0-4.8) k/uL Sodium (137-145) mmol/L BUN (7-17) mg/dL Creatinine (0.52-1.04) mg/dL Glucose (74-99) mg/dL POC Glucose (mg/dL) 66 L 64 L 125 H (75-99) mg/dL Total Protein (6.3-8.2) g/dL Albumin (3.5-5.0) g/dL Urine Protein (Negative) Urine Blood (Negative) Ur Leukocyte Esterase (Negative) Urine RBC (0-5) /hpf Urine Mucus (None) /hpf 09/18/20 09/18/2009/18/20 Range/Units 03:38 03:53 07:04 RBC (3.80-5.40) m/uL Hgb (11.4-16.0) gm/dL Hct (34.0-46.0) % RDW (11.5-15.5) % Lymphocytes # (1.0-4.8) k/uL Sodium (137-145) mmol/L BUN (7-17) mg/dL Creatinine (0.52-1.04) mg/dL Glucose (74-99) mg/dL POC Glucose (mg/dL) 56 L 178 H 54 L (75-99) mg/dL Total Protein (6.3-8.2) g/dL Albumin (3.5-5.0) g/dL Urine Protein (Negative) Urine Blood (Negative) Ur Leukocyte Esterase (Negative) Urine RBC (0-5) /hpf Urine Mucus (None) /hpf Thrombosis Risk Factor Assmnt - Choose All That Apply Each Factor Represents 1 point: Medical pt on bed rest Each Risk Factor Represents 3 Points: Age 75 years or older Thrombosis Risk Factor Assessment Total Risk Factor Score: 4 Thrombosis Risk Factor Assessment Level: Moderate Risk Assessment and Plan (1) Chronic anemia Current Visit: Yes Status: Acute Code(s): D64.9 - ANEMIA, UNSPECIFIED SNOMED Code(s): 242409699 (2) Dehydration Current Visit: Yes Status: Acute Code(s): E86.0 - DEHYDRATION SNOMED Code(s): 49055374 (3) Hypoglycemia Current Visit: Yes Status: Acute Code(s): E16.2 - HYPOGLYCEMIA, UNSPECIFIED SNOMED Code(s): 698350307 (4) Renal insufficiency Current Visit: Yes Status: Acute Code(s): N28.9 - DISORDER OF KIDNEY AND URETER, UNSPECIFIED SNOMED Code(s): 551265667 Plan: We will go ahead and DC glipizide for now. Check CBC and CMP in a.m. Increase by mouth intake. Transfuse PRBC as needed. Hopefully we can discharge the next 48-72 hours
[2020-09-18] MEDS: MAGNESIUM OXIDE 400 MG TAB PO SCH (08:42)
[2020-09-18] MEDS: DOCUSATE 100 MG CAP PO SCH (08:42)
[2020-09-18] MEDS: ASCORBIC ACID 500 MG TAB PO SCH (08:42)
[2020-09-18] MEDS: allopurinoL 300 MG TAB PO SCH (08:43)
[2020-09-18] MEDS: APIXABAN 2.5 MG TABLET PO SCH ×2 (08:43→20:59)
[2020-09-18] MEDS: FUROSEMIDE 40 MG TAB PO SCH ×2 (08:43→16:41)
[2020-09-18] MEDS: FAMOTIDINE 20 MG TAB PO SCH (08:43)
[2020-09-18] MEDS: hydrALAZINE HCL 25 MG TAB PO SCH ×3 (08:44→21:00)
[2020-09-18] MEDS: METOPROLOL TARTRATE 25 MG TAB PO SCH ×2 (08:44→21:01)
[2020-09-18] MEDS: ASPIRIN 81 MG PO SCH (08:44)
[2020-09-18] MEDS: polyethylene glycoL 3350 17 GM POWD.PACK PO SCH (08:45)
[2020-09-18] MEDS: MULTIVITAMINS, THERA 1 EACH TAB PO SCH (08:46)
[2020-09-18] MEDS: traMADol 50 MG TAB PO SCH ×4 (09:14→20:59)
[2020-09-18] MEDS: POTASSIUM CHLORIDE ER 10 MEQ TAB.ER.PRT PO SCH (09:14)
[2020-09-18] MEDS: VITAMIN E (DL,TOCOPHERYL ACET) 400 UNIT CAP PO SCH (09:14)
[2020-09-18] MEDS: CHOLECALCIFEROL 400 UNIT TAB PO SCH (09:14)
[2020-09-18] MEDS: DILTIAZEM ORAL 30 MG TAB PO SCH ×2 (11:22→22:34)
[2020-09-18] MEDS: MEGESTROL 400 MG/10 ML CUP PO SCH (11:23)
[2020-09-18 11:33] LABS: Glucose,Whole Blood 65 mg/dL (75-99)
[2020-09-18 12:05] LABS: Glucose,Whole Blood 67 mg/dL (75-99)
[2020-09-18 12:54] VITALS: BMI 30.1
[2020-09-18 14:12] LABS: Glucose,Whole Blood 103 mg/dL (75-99)
--- NOTE | 2020-09-18 15:14 | CDI ---
Documentation Clarification Form Date: 09/18/2020 02:54:05 PM From: Rubina Farmer RN, CCDS Admit Date: 09/17/2020 02:34:00 PM Patient Name: Jeanna Fajardo Visit Number: [id number] Discharge Date: ATTENTION: The Clinical Documentation Specialists (CDI) and [facility] Coding Staff appreciate your assistance in clarifying documentation. Please respond to the clarification below the line at the bottom and electronically sign. The CDI & [facility] Coding staff will review the response and follow-up if needed. Please note: Queries are made part of the Legal Health Record. If you have any questions, please contact the author of this message via ITS. Dr. Orion Bose Altered Mental Status was documented in the ED assessment and further clarification is requested. History/Risk Factors: Diabetes Mellitus, Coronary artery disease, Hypertension, Renal disease Clinical Indicators: 85-year-old female present on 09/17 with low blood sugar, and altered mental status and a blood sugar 52. She was found to be lethargic and altered in sensorium unable to answe. She has por questions. She was treated by EMS and was more awake. ENT exam: mucous membranes dryor by mouth intake per H/P. 09/17Labs: RBS 112, 136, 151, 108, 98 HGB 7.9, HCT 24.3 09/17 Vital signs: 109/96 65 18 Treatment: Neurological assessment Q4 hrs Monitor Glucose ACHS 2 am with Novolog sliding scale Call physician if >400 or <70 mg/dl .9NS 500 mls bolus Dietitian consult D50 % 50 ml IVP X2 In your professional opinion, please clarify the etiology of the Altered Mental Status, if known. Metabolic Encephalopathy due to Hypoglycemia-this is the correct dx Other condition (please specify) Unable to determine (Last Revision: January 2018) MTDD
[2020-09-18 16:37] LABS: Glucose,Whole Blood 98 mg/dL (75-99)
[2020-09-18 20:32] LABS: Glucose,Whole Blood 126 mg/dL (75-99)
[2020-09-18] MEDS: ATORVASTATIN 10 MG TAB PO SCH (20:59)
[2020-09-18 21:12] LABS: Glucose,Whole Blood 123 mg/dL (75-99)
[2020-09-19 02:12] LABS: Glucose,Whole Blood 88 mg/dL (75-99)
[2020-09-19] MEDS: SODIUM CHLORIDE 0.9% 1,000 ML IV SCH ×2 (02:57→16:52)
[2020-09-19 07:02] LABS: Glucose,Whole Blood 141 mg/dL (75-99)
[2020-09-19] MEDS: FAMOTIDINE 20 MG TAB PO SCH (08:19)
[2020-09-19] MEDS: ASPIRIN 81 MG PO SCH (08:19)
[2020-09-19] MEDS: DOCUSATE 100 MG CAP PO SCH (08:20)
[2020-09-19] MEDS: ASCORBIC ACID 500 MG TAB PO SCH (08:20)
[2020-09-19] MEDS: allopurinoL 300 MG TAB PO SCH (08:20)
[2020-09-19] MEDS: traMADol 50 MG TAB PO SCH ×4 (08:20→22:46)
[2020-09-19] MEDS: METOPROLOL TARTRATE 25 MG TAB PO SCH ×2 (08:20→20:43)
[2020-09-19] MEDS: DILTIAZEM ORAL 30 MG TAB PO SCH ×2 (08:20→21:10)
[2020-09-19] MEDS: APIXABAN 2.5 MG TABLET PO SCH ×2 (08:20→20:43)
[2020-09-19] MEDS: POTASSIUM CHLORIDE ER 10 MEQ TAB.ER.PRT PO SCH (08:20)
[2020-09-19] MEDS: MULTIVITAMINS, THERA 1 EACH TAB PO SCH (08:20)
[2020-09-19] MEDS: polyethylene glycoL 3350 17 GM POWD.PACK PO SCH (08:20)
[2020-09-19] MEDS: CHOLECALCIFEROL 400 UNIT TAB PO SCH (08:21)
[2020-09-19] MEDS: VITAMIN E (DL,TOCOPHERYL ACET) 400 UNIT CAP PO SCH (08:21)
[2020-09-19] MEDS: MEGESTROL 400 MG/10 ML CUP PO SCH (08:22)
[2020-09-19] MEDS: MAGNESIUM OXIDE 400 MG TAB PO SCH (08:29)
[2020-09-19] MEDS: FUROSEMIDE 40 MG TAB PO SCH ×2 (08:29→16:52)
[2020-09-19] MEDS: hydrALAZINE HCL 25 MG TAB PO SCH ×3 (08:30→20:46)
--- NOTE | 2020-09-19 09:37 | CDI ---
Documentation Clarification Form Date: 09/19/2020 09:07:14 AM From: Rubina Farmer RN, CCDS Admit Date: 09/17/2020 02:34:00 PM Patient Name: Jeanna Fajardo Visit Number: [id number] Discharge Date: ATTENTION: The Clinical Documentation Specialists (CDI) and [facility] Coding Staff appreciate your assistance in clarifying documentation. Please respond to the clarification below the line at the bottom and electronically sign. The CDI & [facility] Coding staff will review the response and follow-up if needed. Please note: Queries are made part of the Legal Health Record. If you have any questions, please contact the author of this message via ITS. Dr. Orion Bose 09/17 ED extremities exam documented "a wound noted to the bottom of the right heel". 09/18 Nursing wound assessment has a documented a buttock pressure injury as stage II Please render your opinion for the etiology, location, stage of ulcers and if present on admission. History/Risk Factors: CAD, Diabetes mellitus, Renal disease, Hypertension Clinical Indicators: 85-year-old female present to ED on 09/17 with low blood sugar and altered mental status. She was found by EMS to be lethargic, with altered in sensorium. 09/17 ED has noted a wound to the bottom of the right heal, blackened, present on admission 09/18 wound assessment buttock pressure injury, cellulitis, present on admission stage II Treatment: Buttock dressing Hydrocolloid Monitor skin integrity per protocol Elements for accurate and compliant documentation of an ulcer: *The location/laterality of the ulcer *Etiology (decubitus/pressure, diabetic, PVD) *Stage I-IV, Unstageable, Suspected Deep Tissue Injury (To the deepest stage) *If the ulcer was present at admission (POA) or occurred after admission In your professional opinion, can you please clarify the diagnosis, location, laterality and whether present on admission (POA): Stage 1 Pressure/Decubitus Ulcer (intact skin, non-blanching redness of local area) Stage 2 Pressure/Decubitus Ulcer (Partial thickness, loss of dermis, pink wound bed)-this is the correct dx Stage 3 Pressure/Decubitus Ulcer (Full thickness tissue loss) Stage 4 Pressure/Decubitus Ulcer (Full thickness tissue loss with exposed bone, tendon, or muscle. May have slough or eschar present) Unstageable Other condition, please specify Unable to determine Please indicate etiology of pressure ulcer (if known). (Last Revision: July 2017) MTDD
--- NOTE | 2020-09-19 09:56 | CDI ---
Documentation Clarification Form Date: 09/19/2020 09:38:04 AM From: Rubina Farmer RN, CCDS Admit Date: 09/17/2020 02:34:00 PM Patient Name: Jeanna Fajardo Visit Number: [id number] Discharge Date: ATTENTION: The Clinical Documentation Specialists (CDI) and [facility] Coding Staff appreciate your assistance in clarifying documentation. Please respond to the clarification below the line at the bottom and electronically sign. The CDI & [facility] Coding staff will review the response and follow-up if needed. Please note: Queries are made part of the Legal Health Record. If you have any questions, please contact the author of this message via ITS. Dr. Orion Bose H/P has documented renal insufficiency. Past medical history indicate renal disease. Please render your opinion on the clinical significance of the patients BUN/Creatinine/GFR levels. History/Risk Factors: CAD, Diabetes Mellitus, Hypertension, Renal disease 09/10 per nephrology: Patients Historical CR 1.2 -1.7 Clinical Indicators: 85-year-old female present with low blood sugar, altered mental status. She had was recently discharged for element of renal failure per H/P. She started having difficulty tolerating by mouth intake and blood sugar has been labile. 09/17 BUN 39, CR 1.30 GFR 37 Treatment: Dietitian consult Increase by mouth intake Monitor I/O 0.9NS IV @ 80 mls/hr Comprehensive Metabolic Panel daily x1 In order to capture the severity of condition, please clarify if the labs/clinical indicators signify: CKD Stage 1 (GFR > 90) CKD Stage 2 (GFR 60-89) CKD Stage 3 (GFR 30-59)-this is the correct diagnosis CKD Stage 4 (GFR 15-29) Other, please specify Unable to determine (Last Revision: November 2019) MTDD
[2020-09-19 12:01] LABS: Glucose,Whole Blood 158 mg/dL (75-99)
--- NOTE | 2020-09-19 16:37 | P.PN ---
Subjective Progress Note Date: 09/19/20 Principal diagnosis: Poor appetite and hypoglycemia. This is a continuing progress note on an 85-year with failure to thrive elements. The patient as doing better since I decreased her and stopped her glipizide. No fever or chills stated. Rehab is starting. Question need for ECF. No overt Voiding symptoms stated. Objective - Vital Signs Vital signs: Vital Signs Temp 97.6 F 09/19/20 14:00 Pulse 82 09/19/20 14:00 Resp 18 09/19/20 14:00 BP 138/62 09/19/20 14:00 Pulse Ox 97 09/19/20 14:00 Intake & Output 09/18/20 09/19/20 09/19/20 18:59 06:59 18:59 Intake Total 692 118 Output Total 400 900 800 Balance 292 900 -682 Weight 77.111 kg Intake: Oral 692 118 Output: Urine 400 900 800 Other: Voiding Method Bedpan Bedpan # Voids 1 1 - Constitutional General appearance: Present: no acute distress - EENT Eyes: Absent: abnormal pupil - Neck Neck: Absent: lymphadenopathy - Respiratory Respiratory: bilateral: CTA - Cardiovascular Rhythm: regular Heart sounds: normal: S1, S2 Abnormal Heart Sounds: Absent: S3 Gallop - Gastrointestinal General gastrointestinal: Present: soft. Absent: tenderness - Musculoskeletal Musculoskeletal: Present: generalized weakness - Psychiatric Psychiatric: Present: appropriate affect, intact judgment & insight - Labs CBC & Chem 7: 09/17/20 10:10 09/17/20 10:10 Labs: Abnormal Lab Results - Last 24 Hours (Table) 09/18/20 09/18/20 09/19/20 Range/Units 20:30 21:06 07:01 POC Glucose (mg/dL) 126 H 123 H 141 H (75-99) mg/dL 09/19/20 Range/Units 12:00 POC Glucose (mg/dL) 158 H (75-99) mg/dL Assessment and Plan (1) Chronic anemia Current Visit: Yes Status: Acute Code(s): D64.9 - ANEMIA, UNSPECIFIED SNOMED Code(s): 477405308 (2) Dehydration Current Visit: Yes Status: Acute Code(s): E86.0 - DEHYDRATION SNOMED Code(s): 46650907 (3) Hypoglycemia Current Visit: Yes Status: Acute Code(s): E16.2 - HYPOGLYCEMIA, UNSPECIFIED SNOMED Code(s): 971571455 (4) Renal insufficiency Current Visit: Yes Status: Acute Code(s): N28.9 - DISORDER OF KIDNEY AND URETER, UNSPECIFIED SNOMED Code(s): 363995900 Plan: We will go ahead and DC glipizide for now. Check CBC and CMP in a.m. Increase by mouth intake. Transfuse PRBC as needed. Increase ambulation. And watch sugar closely. Dr. Hager's group will be covering for the weekend. Time with Patient: Greater than 30
[2020-09-19 16:51] LABS: Glucose,Whole Blood 258 mg/dL (75-99)
[2020-09-19] MEDS: ATORVASTATIN 10 MG TAB PO SCH (20:43)
[2020-09-19 20:45] LABS: Glucose,Whole Blood 282 mg/dL (75-99)
[2020-09-20 01:59] LABS: Glucose,Whole Blood 181 mg/dL (75-99)
[2020-09-20] MEDS: SODIUM CHLORIDE 0.9% 1,000 ML IV SCH ×2 (05:35→17:43)
[2020-09-20 07:40] LABS: Glucose,Whole Blood 126 mg/dL (75-99)
[2020-09-20 07:57] LABS: Anisocytosis Slight; HCT 22.6 % (34.0-46.0); Hypochromasia Slight; MCH 30.4 pg (25.0-35.0); MCHC 30.9 g/dL (31.0-37.0); MCV 98.2 fL (80.0-100.0); Macrocytosis Slight; Mean Platelet Volume 7.2; Platelet Count 360 k/uL (150-450); RDW 17.3 % (11.5-15.5); WBC 7.5 k/uL (3.8-10.6)
[2020-09-20] MEDS: ASCORBIC ACID 500 MG TAB PO SCH (07:58)
[2020-09-20] MEDS: APIXABAN 2.5 MG TABLET PO SCH ×2 (07:58→20:16)
[2020-09-20] MEDS: MULTIVITAMINS, THERA 1 EACH TAB PO SCH (07:58)
[2020-09-20] MEDS: MAGNESIUM OXIDE 400 MG TAB PO SCH (07:59)
[2020-09-20] MEDS: hydrALAZINE HCL 25 MG TAB PO SCH ×3 (07:59→21:15)
[2020-09-20] MEDS: DOCUSATE 100 MG CAP PO SCH (07:59)
[2020-09-20] MEDS: METOPROLOL TARTRATE 25 MG TAB PO SCH ×2 (07:59→20:16)
[2020-09-20] MEDS: traMADol 50 MG TAB PO SCH ×4 (08:00→21:15)
[2020-09-20] MEDS: POTASSIUM CHLORIDE ER 10 MEQ TAB.ER.PRT PO SCH (08:00)
[2020-09-20] MEDS: FUROSEMIDE 40 MG TAB PO SCH ×2 (08:00→17:43)
[2020-09-20] MEDS: polyethylene glycoL 3350 17 GM POWD.PACK PO SCH (08:00)
[2020-09-20] MEDS: allopurinoL 300 MG TAB PO SCH (08:00)
[2020-09-20] MEDS: MEGESTROL 400 MG/10 ML CUP PO SCH (08:01)
[2020-09-20] MEDS: VITAMIN E (DL,TOCOPHERYL ACET) 400 UNIT CAP PO SCH (08:01)
[2020-09-20] MEDS: DILTIAZEM ORAL 30 MG TAB PO SCH ×2 (08:01→20:16)
[2020-09-20] MEDS: CHOLECALCIFEROL 400 UNIT TAB PO SCH (08:02)
[2020-09-20] MEDS: ASPIRIN 81 MG PO SCH (08:03)
[2020-09-20] MEDS: FAMOTIDINE 20 MG TAB PO SCH (08:03)
[2020-09-20 11:31] LABS: Glucose,Whole Blood 200 mg/dL (75-99)
[2020-09-20 12:33] LABS: African American GFR (CKD) 47.4 (60.0-200.0); Albumin 2.9 g/dL (3.80-4.90); Albumin/Globulin Ratio 1.53 (1.60-3.17); Anion Gap 6.4 mmol/L (4.00-12.00); Calcium 8.3 mg/dL (8.7-10.3); Carbon Dioxide 26.6 mmol/L (21.6-31.8); Globulin 1.9 g/dL (1.6-3.3); Non-African American GFR(CKD) 40.9 (60.0-200.0); Potassium 4.8 mmol/L (3.5-5.5); Total Bilirubin 0.3 mg/dL (0.2-1.2); Total Protein 4.8 g/dL (6.2-8.2)
--- NOTE | 2020-09-20 13:22 | P.PN ---
<Andreina Merazica - Last Filed: 09/20/20 13:08> Subjective Progress Note Date: 09/20/20 This is an 85-year-old female was recently admitted for failure to thrive with decreased oral intake and episodes of hypoglycemia and is being closely monitored. This is a patient of Dr. Bose. Patient was on glipizide which was recently stopped and blood sugars have been more manageable. Patient is maintained on Accu-Cheks before meals at bedtime and will continue at this time. What sugar this morning was 126. Patient does have a history of anemia and current hemoglobin today is 7.0. Patient is asymptomatic with no active bleeding noted. Will repeat a.m. labs to monitor closely and transfuse PRBC less than 7 or if patient becomes symptomatic. Patient is maintained on gentle IV hydration and will continue at this time as current creatinine is 1.2, sodium is 138, potassium is 4.8. Patient is also being followed by PT/OT therapy with the possibility of ECF for continued rehab. Review of systems: Constitutional: Reports fatigue, no reports of fever, or chills Cardiovascular: No reports of chest pain or palpitations Respiratory: No reports of shortness of breath or cough GI: No reports of nausea, vomiting, or diarrhea : No reports of dysuria or retention Neurovascular: Reports generalized weakness All medications have been reviewed Objective - Vital Signs Vital signs: Vital Signs Temp 98.2 F 09/20/20 08:00 Pulse 72 09/20/20 08:00 Resp 15 09/20/20 08:00 BP 162/53 09/20/20 08:00 Pulse Ox 92 L 09/20/20 08:00 Intake & Output 09/19/20 09/20/20 09/20/20 18:59 06:59 18:59 Intake Total 668 Output Total 1702 1000 Balance -1034 -1000 Intake: Oral 668 Output: Urine 1700 1000 Uretheral (Braun) 500 Stool 2 Other: Voiding Method Bedpan Bedpan # Voids 2 - Exam GENERAL: This is an 85-year-old female awake, sitting up in the bed The patient is alert and oriented x3, not in any acute distress. Well developed, well nourished. HEENT: Pupils are round and equally reacting to light. EOMI. No scleral icterus. No conjunctival pallor. Normocephalic, atraumatic. No pharyngeal erythema. No thyromegaly. CARDIOVASCULAR: S1 and S2 present. No murmurs, rubs, or gallops. PULMONARY: Diminished breath sounds bilaterally otherwise Chest is clear to auscultation, no wheezing or crackles. ABDOMEN: Soft, nontender, nondistended, normoactive bowel sounds. No palpable organomegaly. MUSCULOSKELETAL: No joint swelling or deformity. EXTREMITIES: No cyanosis, clubbing, no pedal edema noted on exam NEUROLOGICAL: Gross neurological examination did not reveal any focal deficits. Diffusely weak SKIN: No rashes or lesions noted - Labs CBC & Chem 7: 09/20/20 06:47 09/20/20 06:47 Labs: Abnormal Lab Results - Last 24 Hours (Table) 09/19/20 09/19/20 09/20/20 Range/Units 16:50 20:43 01:56 RBC (3.80-5.40) m/uL Hgb (11.4-16.0) gm/dL Hct (34.0-46.0) % MCHC (31.0-37.0) g/dL RDW (11.5-15.5) % POC Glucose (mg/dL) 258 H 282 H 181 H (75-99) mg/dL 09/20/20 09/20/20 09/20/20 Range/Units 06:47 07:30 11:03 RBC 2.30 L (3.80-5.40) m/uL Hgb 7.0 L (11.4-16.0) gm/dL Hct 22.6 L (34.0-46.0) % MCHC 30.9 L (31.0-37.0) g/dL RDW 17.3 H (11.5-15.5) % POC Glucose (mg/dL) 126 H 200 H (75-99) mg/dL Assessment and Plan Assessment: Chronic anemia Dehydration Hypoglycemia Metabolic encephalopathy secondary to hypoglycemia, resolved Renal insufficiency, CKD stage III Diabetes mellitus type 2 Gait dysfunction Weakness Full code DVT prophylaxis: Patient on eliquis GI prophylaxis: Pepcid Plan: Continue with current medications, management, and symptomatic treatment. Continue to monitor blood sugars before meals at bedtime. Glipizide has been discontinued. Continue gentle IV hydration and monitor labs and vital signs closely. Will repeat a.m. labs. PT/OT following recommending subacute rehab for continued strength and mobility. Social work is following for possible ECF placement. Hemoglobin is stable at 7.0 with no active bleeding noted. Will continue to monitor closely and transfuse if less than 7 or if patient is symptomatic. Further recommendations to follow based on the clinical course of the patient. <Aayush,Miguelito E - Last Filed: 09/20/20 23:06> Subjective I have discussed the plan and I have reviewed the notes with RAISER HELPER Janice and I agree with it except was mentioned below Patient is seen and examined by me at bedside Patient is alert to time place and person, she mildly confused which looks close to her baseline. A shunt was recently treated for UTI and discharged from hospital, presents with a little more confusion. Urine analysis is a slightly abnormal, we going to repeat urinalysis and check a bladder scan. Also she has chronic anemia that has been slowly trended down over several days and weeks. Currently is around 7. We will do anemia workup. Also physical therapy evaluation. Vitas looks stable. For lower her fluids to D5 normal saline at 50, patient is eating about 50% of her meals. Also she has chronic kidney disease stage III and her creatinine is stable currently at 1.2 We will follow up the patient Dr. Bose will resume the care of the patient on 09/22 Objective - Vital Signs Vital signs: Vital Signs Temp 98.8 F 09/20/20 19:13 Pulse 62 09/20/20 19:13 Resp 16 09/20/20 19:13 BP 160/69 09/20/20 19:13 Pulse Ox 91 L 09/20/20 19:13 Intake & Output 09/20/20 09/20/20 09/21/20 06:59 18:59 06:59 Output Total 1000 1500 Balance -1000 -1500 Output: Urine 1000 1500 Uretheral (Braun) 500 Other: Voiding Method Bedpan - Labs CBC & Chem 7: 09/20/20 06:47 09/20/20 06:47 Labs: Abnormal Lab Results - Last 24 Hours (Table) 09/20/20 09/20/20 09/20/20 Range/Units 01:56 06:47 06:47 RBC 2.30 L (3.80-5.40) m/uL Hgb 7.0 L (11.4-16.0) gm/dL Hct 22.6 L (34.0-46.0) % MCHC 30.9 L (31.0-37.0) g/dL RDW 17.3 H (11.5-15.5) % BUN 30.0 H (9.0-27.0) mg/dL Est GFR (CKD-EPI)AfAm 47.4 L (60.0-200.0) Est GFR (CKD-EPI)NonAf 40.9 L (60.0-200.0) BUN/Creatinine Ratio 25.00 H (12.00-20.00) Ratio Glucose 112 H (70-110) mg/dL POC Glucose (mg/dL) 181 H (75-99) mg/dL Calcium 8.3 L (8.7-10.3) mg/dL Total Protein 4.8 L (6.2-8.2) g/dL Albumin 2.90 L (3.80-4.90) g/dL Albumin/Globulin Ratio 1.53 L (1.60-3.17) g/dL 09/20/20 09/20/20 09/20/20 Range/Units 07:30 11:03 17:02 RBC (3.80-5.40) m/uL Hgb (11.4-16.0) gm/dL Hct (34.0-46.0) % MCHC (31.0-37.0) g/dL RDW (11.5-15.5) % BUN (9.0-27.0) mg/dL Est GFR (CKD-EPI)AfAm (60.0-200.0) Est GFR (CKD-EPI)NonAf (60.0-200.0) BUN/Creatinine Ratio (12.00-20.00) Ratio Glucose (70-110) mg/dL POC Glucose (mg/dL) 126 H 200 H 235 H (75-99) mg/dL Calcium (8.7-10.3) mg/dL Total Protein (6.2-8.2) g/dL Albumin (3.80-4.90) g/dL Albumin/Globulin Ratio (1.60-3.17) g/dL 09/20/20 Range/Units 19:45 RBC (3.80-5.40) m/uL Hgb (11.4-16.0) gm/dL Hct (34.0-46.0) % MCHC (31.0-37.0) g/dL RDW (11.5-15.5) % BUN (9.0-27.0) mg/dL Est GFR (CKD-EPI)AfAm (60.0-200.0) Est GFR (CKD-EPI)NonAf (60.0-200.0) BUN/Creatinine Ratio (12.00-20.00) Ratio Glucose (70-110) mg/dL POC Glucose (mg/dL) 237 H (75-99) mg/dL Calcium (8.7-10.3) mg/dL Total Protein (6.2-8.2) g/dL Albumin (3.80-4.90) g/dL Albumin/Globulin Ratio (1.60-3.17) g/dL
[2020-09-20 17:22] LABS: Glucose,Whole Blood 235 mg/dL (75-99)
[2020-09-20 19:48] LABS: Glucose,Whole Blood 237 mg/dL (75-99)
[2020-09-20] MEDS: ATORVASTATIN 10 MG TAB PO SCH (20:16)
[2020-09-21 01:40] LABS: Glucose,Whole Blood 165 mg/dL (75-99)
[2020-09-21 02:32] LABS: Appearance,Urine Clear (Clear); Bacteria,Urine Many /hpf; Bilirubin,Urine Negative (Negative); Blood,Urine Negative (Negative); Color,Urine Light Yellow; Glucose,Urine (UA) Negative (Negative); Ketones,Urine Negative (Negative); Leukocyte Esterase,Urine Moderate (Negative); Mucus,Urine Few /hpf; Nitrite,Urine Positive (Negative); Protein,Urine Negative (Negative); Specific Gravity,Urine 1.006 (1.001-1.035); Squamous Epithelial Cell,Urine <1 /hpf (0-4); Urobilinogen,Urine <2.0 mg/dL (<2.0); WBC,Urine 10 /hpf (0-5)
[2020-09-21] MEDS: SODIUM CHLORIDE 0.9% 1,000 ML IV SCH ×2 (05:33→17:30)
[2020-09-21 06:05] LABS: Anisocytosis Slight; Basophils # (A) 0.1 k/uL (0-0.2); Basophils % (A) 1 %; Eosinophils # (A) 0.5 k/uL (0-0.7); Eosinophils % (A) 6 %; HCT 23.7 % (34.0-46.0); HGB 7.4 gm/dL (11.4-16.0); Lymphocytes # (A) 1.7 k/uL (1.0-4.8); Lymphocytes % (A) 21 %; MCH 30.1 pg (25.0-35.0); MCHC 31.2 g/dL (31.0-37.0); MCV 96.7 fL (80.0-100.0); Macrocytosis Slight; Mean Platelet Volume 7.1; Monocytes # (A) 0.3 k/uL (0-1.0); Monocytes % (A) 4 %; Neutrophils # (A) 5.6 k/uL (1.3-7.7); Neutrophils % (A) 68 %; Platelet Count 374 k/uL (150-450); RBC 2.45 m/uL (3.80-5.40); RDW 17.5 % (11.5-15.5); WBC 8.2 k/uL (3.8-10.6)
[2020-09-21 07:13] LABS: Glucose,Whole Blood 146 mg/dL (75-99)
[2020-09-21] MEDS: hydrALAZINE HCL 25 MG TAB PO SCH ×3 (08:24→20:50)
[2020-09-21] MEDS: FUROSEMIDE 40 MG TAB PO SCH ×2 (08:24→16:58)
[2020-09-21] MEDS: traMADol 50 MG TAB PO SCH ×4 (08:24→21:08)
[2020-09-21] MEDS: METOPROLOL TARTRATE 25 MG TAB PO SCH ×2 (08:24→20:50)
[2020-09-21] MEDS: DOCUSATE 100 MG CAP PO SCH (08:24)
[2020-09-21] MEDS: allopurinoL 300 MG TAB PO SCH (08:24)
[2020-09-21] MEDS: APIXABAN 2.5 MG TABLET PO SCH ×2 (08:24→21:04)
[2020-09-21] MEDS: polyethylene glycoL 3350 17 GM POWD.PACK PO SCH (08:24)
[2020-09-21] MEDS: MEGESTROL 400 MG/10 ML CUP PO SCH (08:25)
[2020-09-21] MEDS: ASPIRIN 81 MG PO SCH (08:25)
[2020-09-21] MEDS: MULTIVITAMINS, THERA 1 EACH TAB PO SCH (08:25)
[2020-09-21] MEDS: DILTIAZEM ORAL 30 MG TAB PO SCH ×2 (08:25→20:52)
[2020-09-21] MEDS: CHOLECALCIFEROL 400 UNIT TAB PO SCH (08:25)
[2020-09-21] MEDS: VITAMIN E (DL,TOCOPHERYL ACET) 400 UNIT CAP PO SCH (08:25)
[2020-09-21] MEDS: ASCORBIC ACID 500 MG TAB PO SCH (08:25)
[2020-09-21] MEDS: MAGNESIUM OXIDE 400 MG TAB PO SCH (08:25)
[2020-09-21] MEDS: POTASSIUM CHLORIDE ER 10 MEQ TAB.ER.PRT PO SCH (08:25)
[2020-09-21] MEDS: FAMOTIDINE 20 MG TAB PO SCH (08:25)
[2020-09-21 09:57] LABS: % Iron Saturation 19.42 (12.00-45.00); African American GFR (CKD) 47.4 (60.0-200.0); Anion Gap 8.5 mmol/L (4.00-12.00); BUN/Creat Ratio 23.33 Ratio (12.00-20.00); Calcium 8.5 mg/dL (8.7-10.3); Carbon Dioxide 26.5 mmol/L (21.6-31.8); Non-African American GFR(CKD) 40.9 (60.0-200.0); Potassium 4.4 mmol/L (3.5-5.5)
[2020-09-21 10:05] LABS: Ferritin 172.2 ng/mL (10.0-291.0)
[2020-09-21 10:18] LABS: Folate, Serum 22.4 ng/mL
[2020-09-21] MEDS ORDERED: AMPICILLIN-SULBACTAM 3 GM in SODIUM CHLORIDE 0.9% 100 ML IVPB SCH (11:00)
[2020-09-21 11:50] LABS: Glucose,Whole Blood 211 mg/dL (75-99)
--- NOTE | 2020-09-21 12:54 | P.PN ---
<Andreina Merazica - Last Filed: 09/21/20 12:37> Subjective Progress Note Date: 09/21/20 This is an 85-year-old female was recently admitted for failure to thrive with decreased oral intake and episodes of hypoglycemia and is being closely monitored. This is a patient of Dr. Bose. Patient was on glipizide which was recently stopped and blood sugars have been more manageable. Patient is maintained on Accu-Cheks before meals at bedtime and will continue at this time. What sugar this morning was 126. Patient does have a history of anemia and current hemoglobin today is 7.0. Patient is asymptomatic with no active bleeding noted. Will repeat a.m. labs to monitor closely and transfuse PRBC less than 7 or if patient becomes symptomatic. Patient is maintained on gentle IV hydration and will continue at this time as current creatinine is 1.2, sodium is 138, potassium is 4.8. Patient is also being followed by PT/OT therapy with the possibility of ECF for continued rehab. 09/21/2020 Patient is seen and evaluated in follow-up continues to be quite weak and lethargic with poor oral intake although states she is eating minimally. Patient had urinalysis done which showed positive nitrates along with leukocytes and awaiting urine culture. Patient was recently treated with enterococcus faecalis and has been known to have multiple urinary tract infections. Currently using a pure wick device for urine collection as patient is incontinent and bladder scan was done showing 310 mL of retention. Will replace pure wick and monitor closely with post void bladder scans if possible and if continues to retain will insert indwelling Braun catheter. Patient will be initiated on Unasyn and infectious disease is consulted. Blood sugar slightly more controlled and will continue to monitor Accu-Cheks before meals at bedtime and continue to hold glipizide at this time. Sodium today is 136, potassium is 4.4, creatinine is 1.2, current hemoglobin is stable at 7.4. Iron studies show iron is 40, TIBC is 206, vitamin B12 is 422, folate is 22.4, and ferritin is 172. Review of systems: Constitutional: Reports fatigue, no reports of fever, or chills Cardiovascular: No reports of chest pain or palpitations Respiratory: No reports of shortness of breath or cough GI: No reports of nausea, vomiting, or diarrhea : Reports mild dysuria and retention Neurovascular: Reports generalized weakness All medications have been reviewed Objective - Vital Signs Vital signs: Vital Signs Temp 98.6 F 09/21/20 07:48 Pulse 70 09/21/20 07:48 Resp 16 09/21/20 08:00 BP 181/51 09/21/20 07:48 Pulse Ox 93 L 09/21/20 07:52 Intake & Output 09/20/20 09/21/20 09/21/20 18:59 06:59 18:59 Output Total 1500 1650 Balance -1500 -1650 Output: Urine 1500 1650 Straight 250 Other: Voiding Method Bedpan - Exam GENERAL: This is an 85-year-old female awake, sitting up in the chair. The patient is alert and oriented x3, not in any acute distress. Well developed, w ell nourished. HEENT: Pupils are round and equally reacting to light. EOMI. No scleral icterus. No conjunctival pallor. Normocephalic, atraumatic. No pharyngeal erythema. No thyromegaly. CARDIOVASCULAR: S1 and S2 present. No murmurs, rubs, or gallops. PULMONARY: Diminished breath sounds bilaterally otherwise Chest is clear to auscultation, no wheezing or crackles. ABDOMEN: Soft, nontender, nondistended, normoactive bowel sounds. No palpable organomegaly. MUSCULOSKELETAL: No joint swelling or deformity. EXTREMITIES: No cyanosis, clubbing, no pedal edema noted on exam NEUROLOGICAL: Gross neurological examination did not reveal any focal deficits. Diffusely weak SKIN: No rashes or lesions noted - Labs CBC & Chem 7: 09/21/20 05:30 09/21/20 05:30 Labs: Abnormal Lab Results - Last 24 Hours (Table) 09/20/20 09/20/20 09/21/20 Range/Units 17:02 19:45 01:39 RBC (3.80-5.40) m/uL Hgb (11.4-16.0) gm/dL Hct (34.0-46.0) % RDW (11.5-15.5) % BUN (9.0-27.0) mg/dL Est GFR (CKD-EPI)AfAm (60.0-200.0) Est GFR (CKD-EPI)NonAf (60.0-200.0) BUN/Creatinine Ratio (12.00-20.00) Ratio Glucose (70-110) mg/dL POC Glucose (mg/dL) 235 H 237 H 165 H (75-99) mg/dL Calcium (8.7-10.3) mg/dL Iron (50-170) ug/dL TIBC (228-460) ug/dL Urine Nitrite (Negative) Ur Leukocyte Esterase (Negative) Urine WBC (0-5) /hpf Urine Bacteria (None) /hpf Urine Mucus (None) /hpf 09/21/20 09/21/20 09/21/20 Range/Units 02:10 05:30 05:30 RBC 2.45 L (3.80-5.40) m/uL Hgb 7.4 L (11.4-16.0) gm/dL Hct 23.7 L (34.0-46.0) % RDW 17.5 H (11.5-15.5) % BUN 28.0 H (9.0-27.0) mg/dL Est GFR (CKD-EPI)AfAm 47.4 L (60.0-200.0) Est GFR (CKD-EPI)NonAf 40.9 L (60.0-200.0) BUN/Creatinine Ratio 23.33 H (12.00-20.00) Ratio Glucose 124 H (70-110) mg/dL POC Glucose (mg/dL) (75-99) mg/dL Calcium 8.5 L (8.7-10.3) mg/dL Iron 40 L (50-170) ug/dL TIBC 206 L (228-460) ug/dL Urine Nitrite Positive H (Negative) Ur Leukocyte Esterase Moderate H (Negative) Urine WBC 10 H (0-5) /hpf Urine Bacteria Many H (None) /hpf Urine Mucus Few H (None) /hpf 09/21/20 09/21/20 Range/Units 07:03 11:22 RBC (3.80-5.40) m/uL Hgb (11.4-16.0) gm/dL Hct (34.0-46.0) % RDW (11.5-15.5) % BUN (9.0-27.0) mg/dL Est GFR (CKD-EPI)AfAm (60.0-200.0) Est GFR (CKD-EPI)NonAf (60.0-200.0) BUN/Creatinine Ratio (12.00-20.00) Ratio Glucose (70-110) mg/dL POC Glucose (mg/dL) 146 H 211 H (75-99) mg/dL Calcium (8.7-10.3) mg/dL Iron (50-170) ug/dL TIBC (228-460) ug/dL Urine Nitrite (Negative) Ur Leukocyte Esterase (Negative) Urine WBC (0-5) /hpf Urine Bacteria (None) /hpf Urine Mucus (None) /hpf Microbiology - Last 24 Hours (Table) 09/21/20 02:10 Urine Culture - Preliminary Urine,Clean Catch Assessment and Plan Assessment: Chronic anemia Dehydration Possible acute urinary tract infection, present on admission Hypoglycemia Metabolic encephalopathy secondary to hypoglycemia, resolved Renal insufficiency, CKD stage III Diabetes mellitus type 2 Gait dysfunction Weakness Full code DVT prophylaxis: Patient on eliquis GI prophylaxis: Pepcid Plan: Continue with current medications, management, and symptomatic treatment. C ontinue to monitor blood sugars before meals at bedtime. Glipizide has been discontinued. Continue gentle IV hydration and monitor labs and vital signs closely. Will repeat a.m. labs. PT/OT following recommending subacute rehab for continued strength and mobility. Social work is following for possible ECF placement. Hemoglobin is stable at 7.4 with no active bleeding noted. Anemia workup in process. Urinalysis repeated shows some nitrates along with leukocytes and will initiate IV Unasyn and infectious disease has been consulted. We'll continue with bladder scans and monitor for retention and if patient is retaining Will insert indwelling Braun catheter. Pure wick device to be replaced. Will continue to monitor closely and transfuse if less than 7 or if patient is symptomatic. Further recommendations to follow based on the clinical course of the patient. Dr. Bose will resume the care of the patient on 09/22 Subjective I have discussed the plan and I have reviewed the notes with STACEY Camacho and I agree with it except was mentioned below Patient is seen and examined by me at bedside Patient is alert to time place and person, she mildly confused which looks close to her baseline. Patient was recently treated for UTI and discharged from [facility], presents with a little more confusion. Urine analysis is a slightly abnormal, we going to repeat urinalysis and check a bladder scan. Also she has chronic anemia that has been slowly trended down over several days and weeks. Currently is around 7. We will do anemia workup. Also physical therapy evaluation. Vitas looks stable. lower her fluids to D5 normal saline at 50, patient is eating about 50% of her meals. Also she has chronic kidney disease stage III and her creatinine is stable currently at 1.2 We will follow up with the patient <Miguelito Looney E - Last Filed: 09/22/20 00:12> Subjective 09/21/20 I have discussed the plan and I have reviewed the notes with JAVA PERFORMANCE ENGINEER Janice and I agree with it except was mentioned below Patient is seen and examined by me at bedside -Patient is with urinary tract infection, she has dysuria, she was started on an Unasyn and infectious disease consult. Bladder scan is 310, no evidence of ur inary retention, no need for Braun catheter no need for Braun catheter nowv -Patient has hemoglobin of 7.4 daily. Anemia workup showing anemia of chronic disease. B12 is 500, replacement with [place], Cyanocobalamine of 500 mg daily is a started -History of paroxysmal atrial fibrillation. Also history of diastolic heart failure. Patient is on Eliquis and aspirin. -History of CHF, discontinue IV fluid, patient is eating 50-100% of her meal, blood pressure is stable and creatinine is stable at 1.1-1.2. Continue with Lasix. -CKD, stage III. Continue monitor creatinine -Physical therapy evaluation is done, I think patient would benefit from ECF placement for subacute rehab, I discussed with the patient and she is going to think about it. foster care worker consulted Dr. Bose will resume the care of the patient tomorrow Prognosis is guarded Objective - Vital Signs Vital signs: Vital Signs Temp 98.0 F 09/21/20 19:14 Pulse 65 09/21/20 19:14 Resp 16 09/21/20 19:14 BP 132/65 09/21/20 19:14 Pulse Ox 98 09/21/20 19:14 Intake & Output 09/21/20 09/21/20 09/22/20 06:59 18:59 06:59 Output Total 1650 502 Balance -1650 -502 Output: Urine 1650 500 Straight 250 Stool 2 Other: Voiding Method Indwelling Catheter - Labs CBC & Chem 7: 09/21/20 05:30 09/21/20 05:30 Labs: Abnormal Lab Results - Last 24 Hours (Table) 09/21/20 09/21/20 09/21/20 Range/Units 01:39 02:10 05:30 RBC 2.45 L (3.80-5.40) m/uL Hgb 7.4 L (11.4-16.0) gm/dL Hct 23.7 L (34.0-46.0) % RDW 17.5 H (11.5-15.5) % BUN (9.0-27.0) mg/dL Est GFR (CKD-EPI)AfAm (60.0-200.0) Est GFR (CKD-EPI)NonAf (60.0-200.0) BUN/Creatinine Ratio (12.00-20.00) Ratio Glucose (70-110) mg/dL POC Glucose (mg/dL) 165 H (75-99) mg/dL Calcium (8.7-10.3) mg/dL Iron (50-170) ug/dL TIBC (228-460) ug/dL Urine Appearance (Clear) Urine Protein (Negative) Urine Blood (Negative) Urine Nitrite Positive H (Negative) Ur Leukocyte Esterase Moderate H (Negative) Urine WBC 10 H (0-5) /hpf Urine WBC Clumps (None) /hpf Urine Bacteria Many H (None) /hpf Hyaline Casts (0-2) /lpf Urine Mucus Few H (None) /hpf 09/21/20 09/21/20 09/21/20 Range/Units 05:30 07:03 11:22 RBC (3.80-5.40) m/uL Hgb (11.4-16.0) gm/dL Hct (34.0-46.0) % RDW (11.5-15.5) % BUN 28.0 H (9.0-27.0) mg/dL Est GFR (CKD-EPI)AfAm 47.4 L (60.0-200.0) Est GFR (CKD-EPI)NonAf 40.9 L (60.0-200.0) BUN/Creatinine Ratio 23.33 H (12.00-20.00) Ratio Glucose 124 H (70-110) mg/dL POC Glucose (mg/dL) 146 H 211 H (75-99) mg/dL Calcium 8.5 L (8.7-10.3) mg/dL Iron 40 L (50-170) ug/dL TIBC 206 L (228-460) ug/dL Urine Appearance (Clear) Urine Protein (Negative) Urine Blood (Negative) Urine Nitrite (Negative) Ur Leukocyte Esterase (Negative) Urine WBC (0-5) /hpf Urine WBC Clumps (None) /hpf Urine Bacteria (None) /hpf Hyaline Casts (0-2) /lpf Urine Mucus (None) /hpf 09/21/20 09/21/20 09/21/20 Range/Units 16:00 16:56 20:29 RBC (3.80-5.40) m/uL Hgb (11.4-16.0) gm/dL Hct (34.0-46.0) % RDW (11.5-15.5) % BUN (9.0-27.0) mg/dL Est GFR (CKD-EPI)AfAm (60.0-200.0) Est GFR (CKD-EPI)NonAf (60.0-200.0) BUN/Creatinine Ratio (12.00-20.00) Ratio Glucose (70-110) mg/dL POC Glucose (mg/dL) 215 H 151 H (75-99) mg/dL Calcium (8.7-10.3) mg/dL Iron (50-170) ug/dL TIBC (228-460) ug/dL Urine Appearance Turbid H (Clear) Urine Protein 1+ H (Negative) Urine Blood Small H (Negative) Urine Nitrite Positive H (Negative) Ur Leukocyte Esterase Large H (Negative) Urine WBC (0-5) /hpf Urine WBC Clumps Many H (None) /hpf Urine Bacteria Many H (None) /hpf Hyaline Casts 5 H (0-2) /lpf Urine Mucus Occasional H (None) /hpf Microbiology - Last 24 Hours (Table) 09/21/20 16:20 Urine Culture - Preliminary Urine,Voided 09/21/20 02:10 Urine Culture - Preliminary Urine,Clean Catch
[2020-09-21 17:02] LABS: Glucose,Whole Blood 215 mg/dL (75-99)
[2020-09-21 18:59] LABS: Appearance,Urine Turbid (Clear); Bacteria,Urine Many /hpf; Bilirubin,Urine Negative (Negative); Blood,Urine Small (Negative); Color,Urine Yellow; Glucose,Urine (UA) Negative (Negative); Hyaline Casts,Urine 5 /lpf (0-2); Ketones,Urine Negative (Negative); Leukocyte Esterase,Urine Large (Negative); Mucus,Urine Occasional /hpf; Nitrite,Urine Positive (Negative); PH, Urine 7.5 (5.0-8.0); Protein,Urine 1+ (Negative); RBC,Urine 4 /hpf (0-5); Specific Gravity,Urine 1.013 (1.001-1.035); Squamous Epithelial Cell,Urine 1 /hpf (0-4); Urobilinogen,Urine <2.0 mg/dL (<2.0); WBC,Urine >182 /hpf (0-5)
[2020-09-21 20:30] LABS: Glucose,Whole Blood 151 mg/dL (75-99)
[2020-09-21] MEDS: ATORVASTATIN 10 MG TAB PO SCH (20:51)
[2020-09-21] MEDS: AMPICILLIN-SULBACTAM 3 GM in SODIUM CHLORIDE 0.9% 100 ML IVPB SCH (20:53)
[2020-09-22 02:06] LABS: Glucose,Whole Blood 156 mg/dL (75-99)
[2020-09-22] MEDS: AMPICILLIN-SULBACTAM 3 GM in SODIUM CHLORIDE 0.9% 100 ML IVPB SCH ×3 (05:05→20:09)
--- NOTE | 2020-09-22 05:10 | CONS ---
CONSULTATION DATE OF SERVICE: 09/21/2020 REASON FOR CONSULTATION: Urinary tract infection. HISTORY OF PRESENT ILLNESS: The patient is an 85-year-old female who was recently admitted to this facility. She was treated for urinary tract infection. Urine culture was positive for Enterococcus on 09/06/2020. She was treated with IV Unasyn subsequently advised one week course of oral Augmentin on discharge and the patient discharged on 09/10/2020. The patient presented back within a week to the hospital on 09/17/2020 for evaluation of mental status changes and on arrival of the EMS, the patient was noted to have hypoglycemia with a blood sugar of 52. The patient apparently was unable to answer questions. The patient was seen by the paramedics and brought for further evaluation to the hospital. The patient on admission did not have slightly hypothermic, but no fever and no fever has been recorded since then. The patient did have a normal white count. She did have a UA on admission did shows only 3 WBCs. Cultures were not done. However, apparently the patient did have decreased urine output for which a Braun catheter was placed by nursing staff and noticed to have significant purulent urine. Culture obtained and the patient was started on Unasyn. Infectious Disease was consulted for further management of antibiotic therapy. The patient remains to be feeling weak and tired, no energy. Denies having any headache. No chest pain, shortness of breath or cough. No nausea, no vomiting. No abdominal pain or diarrhea. REVIEW OF SYSTEMS: Positive points have been mentioned in HPI. Rest of systems are negative. PAST MEDICAL HISTORY: Coronary artery disease, diabetes mellitus, gastroesophageal reflux disease, hypertension, hyperlipidemia, renal insufficiency, and recurrent UTI. PAST SURGICAL HISTORY: PTCA with stent, cataract surgery, colonoscopy, stent in aorta. SOCIAL HISTORY: Remote history of smoking. No drinking or drug use. FAMILY HISTORY: Positive for CVA and diabetes. ALLERGIES: CEPHALEXIN, DOXYCYCLINE; however, tolerated Unasyn without any problem. MEDICATIONS: Medications include the patient is currently on Tylenol, Zyloprim, Unasyn 3 grams q.12 hours. She is on Eliquis, vitamin C, aspirin, Lipitor, vitamin D3, Cardizem, Colace, Pepcid, Lasix, hydralazine, Zestril, mag oxide, Lopressor, Theragran, Narcan, MiraLAX, IV fluid, and tramadol. PHYSICAL EXAMINATION: Blood pressure 132/65 with a pulse of 65, temperature 98. She is 98% on room air. General description is an elderly female lying in bed in no distress. No tachypnea or accessory muscle of respiration use. HEENT: Examination shows slight pallor. No scleral icterus. Oral mucous membrane is dry. No pharyngeal erythema or thrush. NECK: Trachea central. No thyromegaly. LUNGS: Unlabored breathing, clear to auscultation anteriorly. No wheeze or crackle. HEART: S1, S2. Regular rate and rhythm. ABDOMEN: Soft, no tenderness. No guarding or rigidity. EXTREMITIES: No edema of feet. SKIN EXAMINATION: No rash or mass palpable. NEUROLOGICAL: The patient is awake, alert and oriented x2. Mood and affect normal. LABS: Hemoglobin 7.4, white count 8.2, BUN of 28, creatinine 1.2. Urine did show large leukocyte esterases and WBC clumps. Cultures currently pending. DIAGNOSTIC IMPRESSION: Patient admitted to the hospital with generalized weakness, mental status changes likely multifactorial in this patient recently treated for urinary tract infection and she was noticed to have significant purulent urine at the time of Braun insertion with component of symptomatic urinary tract infection, concern for possible gram-negative versus enterococcus that she recently grew and is not clear if she completed her antibiotic or not. PLAN: 1. We will adjust her antibiotic to Unasyn 3 grams q.8 hours. 2. Gentle IV fluid. 3. We will follow on clinical condition and culture to further adjust medication if needed. Thank you for this consultation. Will follow this patient along with you. MMODL / IJN: [id number] /
[2020-09-22 07:10] LABS: Glucose,Whole Blood 129 mg/dL (75-99)
[2020-09-22] MEDS: ASCORBIC ACID 500 MG TAB PO SCH (08:25)
[2020-09-22] MEDS: DOCUSATE 100 MG CAP PO SCH (08:25)
[2020-09-22] MEDS: polyethylene glycoL 3350 17 GM POWD.PACK PO SCH (08:26)
[2020-09-22] MEDS: MEGESTROL 400 MG/10 ML CUP PO SCH (08:26)
[2020-09-22] MEDS: DILTIAZEM ORAL 30 MG TAB PO SCH ×2 (08:27→20:10)
[2020-09-22] MEDS: CYANOCOBALAMIN 500 MCG TAB PO SCH (08:28)
[2020-09-22] MEDS: hydrALAZINE HCL 25 MG TAB PO SCH ×3 (08:28→20:11)
[2020-09-22] MEDS: VITAMIN E (DL,TOCOPHERYL ACET) 400 UNIT CAP PO SCH (08:28)
[2020-09-22] MEDS: ASPIRIN 81 MG PO SCH (08:29)
[2020-09-22] MEDS: CHOLECALCIFEROL 400 UNIT TAB PO SCH (08:30)
[2020-09-22] MEDS: APIXABAN 2.5 MG TABLET PO SCH ×2 (08:30→20:10)
[2020-09-22] MEDS: FAMOTIDINE 20 MG TAB PO SCH (08:31)
[2020-09-22] MEDS: FUROSEMIDE 40 MG TAB PO SCH ×2 (08:31→15:08)
[2020-09-22] MEDS: allopurinoL 300 MG TAB PO SCH (08:31)
[2020-09-22] MEDS: POTASSIUM CHLORIDE ER 10 MEQ TAB.ER.PRT PO SCH (08:32)
[2020-09-22] MEDS: MULTIVITAMINS, THERA 1 EACH TAB PO SCH (08:33)
[2020-09-22] MEDS: METOPROLOL TARTRATE 25 MG TAB PO SCH ×2 (08:33→20:09)
[2020-09-22] MEDS: traMADol 50 MG TAB PO SCH ×4 (08:34→20:11)
[2020-09-22] MEDS: MAGNESIUM OXIDE 400 MG TAB PO SCH (08:35)
[2020-09-22 11:24] LABS: Glucose,Whole Blood 185 mg/dL (75-99)
--- NOTE | 2020-09-22 13:53 | P.PN ---
Subjective Progress Note Date: 09/22/20 HISTORY OF PRESENT ILLNESS This is an 85 she will female who came into the hospital due to gener alized weakness, mental status changes and currently under treatment for urinary tract infection. Braun catheter drainage is now clear urine. She has been treated with Unasyn 3 g IV piggyback every 8 hours. Patient states that she is feeling well today. She denies any shortness of breath. No chest pain, no shortness of breath, no cough. She denies any abdominal pain, no nausea or vomiting. Urine culture is gram-negative bacilli. PHYSICAL EXAMINATION Gen: This is an 85-year-old female. Patient is resting bed and appears to be comfortable and in no acute distress. Braun catheter draining clear shabbir urine. HEENT: Head is atraumatic, normocephalic. Pupils equal, round. Sclerae is anicteric. No thrush. NECK: Supple. No JVD. LUNGS: Clear to auscultation. No wheezes or rhonchi. No intercostal retractions. HEART: Regular rate and rhythm. No murmur. ABDOMEN: Soft. Bowel sounds are present. No masses. No tenderness. EXTREMITIES: No pedal edema. No calf tenderness. NEUROLOGICAL: Patient is awake, alert and oriented x3. Cranial nerves 2 through 12 are grossly intact. ASSESSMENT Metabolic encephalopathy secondary to urinary tract infection Acute urinary tract infection Urinary retention requiring Braun catheter placement PLAN Continue Unasyn 3 g IV piggyback every 8 hours Await urine culture report Further recommendations based upon clinical course The above dictated assessment and findings were discussed with Dr. Gamboa. The impression and plan of care have been directed as dictated. Rosemarie Suarez nurse practitioner acting as scribe for Dr. Gamboa. Objective - Vital Signs Vital signs: Vital Signs Temp 98.0 F 09/22/20 07:48 Pulse 73 09/22/20 07:48 Resp 18 09/22/20 07:48 BP 147/67 09/22/20 07:48 Pulse Ox 94 L 09/22/20 07:48 Intake & Output 09/21/20 09/22/20 09/22/20 18:59 06:59 18:59 Intake Total 120 Output Total 502 650 Balance -502 -530 Intake: Oral 120 Output: Urine 500 650 Uretheral (Braun) 650 Stool 2 Other: Voiding Method Indwelling Catheter - Labs CBC & Chem 7: 09/21/20 05:30 09/21/20 05:30 Labs: Abnormal Lab Results - Last 24 Hours (Table) 09/21/20 09/21/20 09/21/20 Range/Units 11:22 16:00 16:56 POC Glucose (mg/dL) 211 H 215 H (75-99) mg/dL Urine Appearance Turbid H (Clear) Urine Protein 1+ H (Negative) Urine Blood Small H (Negative) Urine Nitrite Positive H (Negative) Ur Leukocyte Esterase Large H (Negative) Urine WBC Clumps Many H (None) /hpf Urine Bacteria Many H (None) /hpf Hyaline Casts 5 H (0-2) /lpf Urine Mucus Occasional H (None) /hpf 09/21/20 09/22/20 09/22/20 Range/Units 20:29 02:04 07:07 POC Glucose (mg/dL) 151 H 156 H 129 H (75-99) mg/dL Urine Appearance (Clear) Urine Protein (Negative) Urine Blood (Negative) Urine Nitrite (Negative) Ur Leukocyte Esterase (Negative) Urine WBC Clumps (None) /hpf Urine Bacteria (None) /hpf Hyaline Casts (0-2) /lpf Urine Mucus (None) /hpf 09/22/20 Range/Units 11:22 POC Glucose (mg/dL) 185 H (75-99) mg/dL Urine Appearance (Clear) Urine Protein (Negative) Urine Blood (Negative) Urine Nitrite (Negative) Ur Leukocyte Esterase (Negative) Urine WBC Clumps (None) /hpf Urine Bacteria (None) /hpf Hyaline Casts (0-2) /lpf Urine Mucus (None) /hpf Microbiology - Last 24 Hours (Table) 09/21/20 16:20 Urine Culture - Preliminary Urine,Voided 09/21/20 02:10 Urine Culture - Preliminary Urine,Clean Catch
[2020-09-22 16:33] LABS: Glucose,Whole Blood 166 mg/dL (75-99)
--- NOTE | 2020-09-22 18:34 | P.PN ---
Subjective Principal diagnosis: Poor appetite and hypoglycemia. This is a continuing progress note on an 85-year with failure to thrive elements . The patient as doing better since I decreased her and stopped her glipizide. No fever or chills stated. Rehab is starting. Question need for ECF. No overt Voiding symptoms stated. Her blood sugar seems to be much more stable but She is requiring 2 person transfer. ECF Objective - Vital Signs Vital signs: Vital Signs Temp 97.9 F 09/22/20 14:00 Pulse 75 09/22/20 14:00 Resp 18 09/22/20 14:00 BP 157/73 09/22/20 14:00 Pulse Ox 93 L 09/22/20 14:00 Intake & Output 09/21/20 09/22/20 09/22/20 18:59 06:59 18:59 Intake Total 120 Output Total 502 1000 Balance -502 -880 Intake: Oral 120 Output: Urine 500 1000 Uretheral (Braun) 1000 Stool 2 Other: Voiding Method Indwelling Catheter - Constitutional General appearance: Present: thin. Absent: no acute distress - EENT Eyes: Absent: abnormal pupil - Neck Neck: Absent: lymphadenopathy - Respiratory Respiratory: bilateral: CTA - Cardiovascular Rhythm: regular Heart sounds: normal: S1, S2 Abnormal Heart Sounds: Absent: S3 Gallop - Gastrointestinal General gastrointestinal: Present: soft. Absent: tenderness - Musculoskeletal Musculoskeletal: Present: generalized weakness - Psychiatric Psychiatric: Present: A&O x's 3, appropriate affect - Labs CBC & Chem 7: 09/21/20 05:30 09/21/20 05:30 Labs: Abnormal Lab Results - Last 24 Hours (Table) 09/21/20 09/21/20 09/22/20 Range/Units 16:00 20:29 02:04 POC Glucose (mg/dL) 151 H 156 H (75-99) mg/dL Urine Appearance Turbid H (Clear) Urine Protein 1+ H (Negative) Urine Blood Small H (Negative) Urine Nitrite Positive H (Negative) Ur Leukocyte Esterase Large H (Negative) Urine WBC Clumps Many H (None) /hpf Urine Bacteria Many H (None) /hpf Hyaline Casts 5 H (0-2) /lpf Urine Mucus Occasional H (None) /hpf 09/22/20 09/22/20 09/22/20 Range/Units 07:07 11:22 16:31 POC Glucose (mg/dL) 129 H 185 H 166 H (75-99) mg/dL Urine Appearance (Clear) Urine Protein (Negative) Urine Blood (Negative) Urine Nitrite (Negative) Ur Leukocyte Esterase (Negative) Urine WBC Clumps (None) /hpf Urine Bacteria (None) /hpf Hyaline Casts (0-2) /lpf Urine Mucus (None) /hpf Microbiology - Last 24 Hours (Table) 09/21/20 02:10 Urine Culture - Preliminary Urine,Clean Catch Gram Neg Bacilli 09/21/20 16:20 Urine Culture - Preliminary Urine,Voided Assessment and Plan (1) Chronic anemia Current Visit: Yes Status: Acute Code(s): D64.9 - ANEMIA, UNSPECIFIED SNOMED Code(s): 418341218 (2) Dehydration Current Visit: Yes Status: Acute Code(s): E86.0 - DEHYDRATION SNOMED C ode(s): 97250282 (3) Hypoglycemia Current Visit: Yes Status: Acute Code(s): E16.2 - HYPOGLYCEMIA, UNSPECIFIED SNOMED Code(s): 375469919 (4) Renal insufficiency Current Visit: Yes Status: Acute Code(s): N28.9 - DISORDER OF KIDNEY AND URETER, UNSPECIFIED SNOMED Code(s): 610351124 (5) Neurologic gait dysfunction Current Visit: Yes Status: Acute Code(s): R26.9 - UNSPECIFIED ABNORMALITIES OF GAIT AND MOBILITY SNOMED Code(s): 55929794 Plan: We will go ahead and DC glipizide for now. Check CBC and CMP in a.m. Increase by mouth intake. Transfuse PRBC as needed. Increase ambulation. Question need for ECF
[2020-09-22 19:29] LABS: Anisocytosis Slight; Basophils # (A) 0.1 k/uL (0-0.2); Basophils % (A) 1 %; Eosinophils # (A) 0.5 k/uL (0-0.7); Eosinophils % (A) 6 %; HCT 26.9 % (34.0-46.0); HGB 8.6 gm/dL (11.4-16.0); Hypochromasia Slight; Lymphocytes # (A) 0.9 k/uL (1.0-4.8); Lymphocytes % (A) 10 %; MCH 31.2 pg (25.0-35.0); MCHC 31.9 g/dL (31.0-37.0); MCV 97.8 fL (80.0-100.0); Macrocytosis Slight; Mean Platelet Volume 7.2; Monocytes # (A) 0.5 k/uL (0-1.0); Monocytes % (A) 5 %; Neutrophils # (A) 6.7 k/uL (1.3-7.7); Neutrophils % (A) 76 %; Platelet Count 380 k/uL (150-450); RBC 2.75 m/uL (3.80-5.40); RDW 17.6 % (11.5-15.5); WBC 8.8 k/uL (3.8-10.6)
[2020-09-22] MEDS: ATORVASTATIN 10 MG TAB PO SCH (20:11)
[2020-09-22 20:16] LABS: Glucose,Whole Blood 271 mg/dL (75-99)
[2020-09-22 22:38] LABS: Glucose,Whole Blood 172 mg/dL (75-99)
[2020-09-23 04:02] LABS: Glucose,Whole Blood 117 mg/dL (75-99)
[2020-09-23] MEDS: AMPICILLIN-SULBACTAM 3 GM in SODIUM CHLORIDE 0.9% 100 ML IVPB SCH ×2 (04:02→11:36)
[2020-09-23 06:54] LABS: Glucose,Whole Blood 116 mg/dL (75-99)
[2020-09-23 07:24] VITALS: RESP 18
[2020-09-23] MEDS: MULTIVITAMINS, THERA 1 EACH TAB PO SCH (07:36)
[2020-09-23] MEDS: VITAMIN E (DL,TOCOPHERYL ACET) 400 UNIT CAP PO SCH (07:36)
[2020-09-23] MEDS: POTASSIUM CHLORIDE ER 10 MEQ TAB.ER.PRT PO SCH (07:36)
[2020-09-23] MEDS: FAMOTIDINE 20 MG TAB PO SCH (07:36)
[2020-09-23] MEDS: hydrALAZINE HCL 25 MG TAB PO SCH ×2 (07:36→14:53)
[2020-09-23] MEDS: APIXABAN 2.5 MG TABLET PO SCH (07:36)
[2020-09-23] MEDS: FUROSEMIDE 40 MG TAB PO SCH ×2 (07:37→14:52)
[2020-09-23] MEDS: DOCUSATE 100 MG CAP PO SCH (07:37)
[2020-09-23] MEDS: ASPIRIN 81 MG PO SCH (07:37)
[2020-09-23] MEDS: ASCORBIC ACID 500 MG TAB PO SCH (07:37)
[2020-09-23] MEDS: CHOLECALCIFEROL 400 UNIT TAB PO SCH (07:37)
[2020-09-23] MEDS: MAGNESIUM OXIDE 400 MG TAB PO SCH (07:37)
[2020-09-23] MEDS: DILTIAZEM ORAL 30 MG TAB PO SCH (07:38)
[2020-09-23] MEDS: allopurinoL 300 MG TAB PO SCH (07:38)
[2020-09-23] MEDS: METOPROLOL TARTRATE 25 MG TAB PO SCH (07:38)
[2020-09-23] MEDS: polyethylene glycoL 3350 17 GM POWD.PACK PO SCH (07:39)
[2020-09-23] MEDS: MEGESTROL 400 MG/10 ML CUP PO SCH (07:39)
[2020-09-23] MEDS: traMADol 50 MG TAB PO SCH ×2 (07:39→14:52)
[2020-09-23] MEDS: CYANOCOBALAMIN 500 MCG TAB PO SCH (07:39)
[2020-09-23 08:02] LABS: Anisocytosis Slight; HCT 23.9 % (34.0-46.0); HGB 7.9 gm/dL (11.4-16.0); MCH 31.7 pg (25.0-35.0); MCHC 32.8 g/dL (31.0-37.0); MCV 96.6 fL (80.0-100.0); Macrocytosis Slight; Mean Platelet Volume 7.3; Platelet Count 359 k/uL (150-450); RBC 2.48 m/uL (3.80-5.40); RDW 17.7 % (11.5-15.5); WBC 7.5 k/uL (3.8-10.6)
--- NOTE | 2020-09-23 08:32 | P.DS ---
Providers Date of admission: 09/17/20 14:34 Attending physician: Orion Bose Consults: 09/21/20 10:56 Consult Physician Urgent Consulting Provider: Danisha Gamboa Consult Reason/Comments: UTI Do you want consulting provider notified?: Yes Primary care physician: Orion Bose - Discharge Diagnosis(es) (1) Chronic anemia Current Visit: Yes Status: Acute (2) Dehydration Current Visit: Yes Status: Acute (3) Hypoglycemia Current Visit: Yes Status: Acute (4) Renal insufficiency Current Visit: Yes Status: Acute (5) Neurologic gait dysfunction Current Visit: Yes Status: Acute Hospital Course: This discharge summary 85-year-old white female essentially admitted for weakness and hyperglycemia with element of dehydration and malnutrition. The patient was stabilized from a medical perspective but still has considerable weakness. She'll be transferred to [facility] for appropriate rehab because of her social situation. She primarily lives alone but has excellent support but is not 24/7. The patient will be discharged on appropriate antibiotic treatment to follow-up with me in about one to weeks. Patient Condition at Discharge: Fair Plan - Discharge Summary Discharge Rx Participant: No New Discharge Prescriptions: New Megestrol [Megace] 400 mg PO DAILY #30 ml Cyanocobalamin [Vitamin B-12] 500 mcg PO DAILY tab Continue Potassium Chloride [K-Tab ER] 10 meq PO DAILY hydrALAZINE HCL [Apresoline] 50 mg PO TID Magnesium Oxide 400 mg PO DAILY Famotidine [Pepcid] 20 mg PO DAILY #30 tab Apixaban [Eliquis] 2.5 mg PO BID Ascorbic Acid [Vitamin C] 500 mg PO DAILY Cholecalciferol [Vitamin D3] 800 unit PO DAILY lisinopriL [Zestril] 2.5 mg PO HS Docusate [Colace] 200 mg PO DAILY Furosemide [Lasix] 40 mg PO BID@0900,1600 tab Metoprolol Tartrate [Lopressor] 75 mg PO BID #60 tab allopurinoL [Zyloprim] 150 mg PO DAILY Diltiazem HCl [Cardizem] 90 mg PO BID Acetaminophen [Tylenol] 650 mg PO Q4H PRN PRN Reason: Pain Or Fever > 100.5 Vitamin E 400 unit PO DAILY Polyethylene Glycol 3350 [Miralax] 17 gm PO DAILY Multivitamins, Thera [Multivitamin (formulary)] 1 tab PO DAILY hydrALAZINE HCL 25 mg PO TID Lovastatin [Altoprev] 20 mg PO HS Aspirin 81 mg PO DAILY@0900 Amoxicillin/Potassium Clav [Augmentin 500-125 Tablet] 1 tab PO Q12HR 1 Days #14 tab traMADol HCl [Ultram] 50 mg PO QID #120 tab Discontinued glipiZIDE XL [Glucotrol XL] 10 mg PO AC-BID Discharge Medication List Potassium Chloride [K-Tab ER] 10 meq PO DAILY 06/23/14 [History] hydrALAZINE HCL [Apresoline] 50 mg PO TID 12/08/16 [History] Magnesium Oxide 400 mg PO DAILY 02/17/17 [History] Famotidine [Pepcid] 20 mg PO DAILY #30 tab 11/23/17 [Rx] Apixaban [Eliquis] 2.5 mg PO BID 01/29/18 [History] Ascorbic Acid [Vitamin C] 500 mg PO DAILY 01/29/18 [History] Cholecalciferol [Vitamin D3] 800 unit PO DAILY 07/21/20 [History] Docusate [Colace] 200 mg PO DAILY 07/21/20 [History] lisinopriL [Zestril] 2.5 mg PO HS 07/21/20 [History] Furosemide [Lasix] 40 mg PO BID@0900,1600 tab 07/30/20 [Rx] Metoprolol Tartrate [Lopressor] 75 mg PO BID #60 tab 07/30/20 [Rx] Acetaminophen [Tylenol] 650 mg PO Q4H PRN 09/06/20 [History] Aspirin 81 mg PO DAILY@0900 09/06/20 [History] Diltiazem HCl [Cardizem] 90 mg PO BID 09/06/20 [History] Lovastatin [Altoprev] 20 mg PO HS 09/06/20 [History] Multivitamins, Thera [Multivitamin (formulary)] 1 tab PO DAILY 09/06/20 [History] Polyethylene Glycol 3350 [Miralax] 17 gm PO DAILY 09/06/20 [History] Vitamin E 400 unit PO DAILY 09/06/20 [History] allopurinoL [Zyloprim] 150 mg PO DAILY 09/06/20 [History] hydrALAZINE HCL 25 mg PO TID 09/06/20 [History] Amoxicillin/Potassium Clav [Augmentin 500-125 Tablet] 1 tab PO Q12HR 1 Days #14 tab 09/10/20 [Rx] Cyanocobalamin [Vitamin B-12] 500 mcg PO DAILY tab 09/23/20 [Rx] Megestrol [Megace] 400 mg PO DAILY #30 ml 09/23/20 [Rx] traMADol HCl [Ultram] 50 mg PO QID #120 tab 09/23/20 [Rx] Follow up Appointment(s)/Referral(s): [facility], [NON-STAFF] - 1-2 Days Orion Bose MD [Primary Care Provider] - 2 Weeks
[2020-09-23 11:38] LABS: Glucose,Whole Blood 204 mg/dL (75-99)
--- NOTE | 2020-09-23 12:22 | CDI ---
Documentation Clarification Form Date: 09/23/2020 12:05:51 PM From: Rubina Farmer RN, CCDS Admit Date: 09/17/2020 02:34:00 PM Patient Name: Jeanna Fajardo Visit Number: [id number] Discharge Date: ATTENTION: The Clinical Documentation Specialists (CDI) and [facility] Coding Staff appreciate your assistance in clarifying documentation. Please respond to the clarification below the line at the bottom and electronically sign. The CDI & [facility] Coding staff will review the response and follow-up if needed. Please note: Queries are made part of the Legal Health Record. If you have any questions, please contact the author of this message via ITS. Dr. Orion Bose Malnutrition has been documented in discharge summary on 09/23. Please render your opinion on the degree of malnutrition. History/Risk Factors: hyperlipidemia, renal disease, dehydration Clinical Indicators: 85-year-old female presented on 09/17 with altered mental status and admitted for hypoglycemia. On admission blood sugar 112. She reports poor oral intake, chewing trouble, decreased appetite per nutritional assessment. Labs: 09/17 Glucose 112, 151, 108, 98, Total Protein 6.0, Albumin 3.1, Bun 39, Creatinine 1.30 Current BMI: 30.1 kg (indicate Overweight) Weight loss: Patient reports trying to lose weight. Lost 80-90 lbs. in 2 years Insufficient energy intake: 25-50 % of meals Loss of muscle mass: Mild temporal muscle wasting Treatment: Dietary Consult: Yes Consistent Carb diet, oral supplements Glucerna TID Monitor PO, supplement intake In your professional opinion, can you please clarify if these findings signify one of the following conditions? Mild Protein-Calorie Malnutrition Moderate Protein-Calorie Malnutrition-this is the correct diagnosis. BMI is incorrect Severe Protein-Calorie Malnutrition Other condition, please specify Unable to determine (Last Revision: April 2019) MTDD
[2020-09-23] MEDS ORDERED: CIPROFLOXACIN HCL 500 MG TAB PO SCH (14:00)
--- NOTE | 2020-09-23 14:16 | P.PN ---
Subjective Progress Note Date: 09/23/20 HISTORY OF PRESENT ILLNESS This is an 85 she will female who came into the hospital due to gener alized weakness, mental status changes and currently under treatment for urinary tract infection. Braun catheter drainage is now clear urine. She has been treated with Unasyn 3 g IV piggyback every 8 hours. Patient states that she is feeling well today. She denies any shortness of breath. No chest pain, no shortness of breath, no cough. She denies any abdominal pain, no nausea or vomiting. Urine culture is finalized with Pseudomonas susceptible to ciprofloxacin. PHYSICAL EXAMINATION Gen: This is an 85-year-old female. Patient is resting bed and appears to be comfortable and in no acute distress. Braun catheter draining clear shabbir urine. HEENT: Head is atraumatic, normocephalic. Pupils equal, round. Sclerae is anicteric. No thrush. NECK: Supple. No JVD. LUNGS: Clear to auscultation. No wheezes or rhonchi. No intercostal retractions. HEART: Regular rate and rhythm. No murmur. ABDOMEN: Soft. Bowel sounds are present. No masses. No tenderness. Braun catheter. EXTREMITIES: No pedal edema. No calf tenderness. NEUROLOGICAL: Patient is awake, alert and oriented x3. ASSESSMENT Metabolic encephalopathy secondary to urinary tract infection Acute urinary tract infection Urinary retention requiring Braun catheter placement PLAN Change Unasyn to ciprofloxacin 500 mg oral twice daily Prescription for ciprofloxacin 500 mg twice daily for 7 days sent to pharmacy Patient is cleared by ID for discharge. The above dictated assessment and findings were discussed with Dr. Gamboa. The impression and plan of care have been directed as dictated. Rosemarie Suarez nurse practitioner acting as scribe for Dr. Gamboa. Objective - Vital Signs Vital signs: Vital Signs Temp 98.1 F 09/23/20 07:22 Pulse 65 09/23/20 07:22 Resp 18 09/23/20 07:22 BP 162/62 09/23/20 07:22 Pulse Ox 96 09/23/20 07:22 Intake & Output 09/22/20 09/23/20 09/23/20 18:59 06:59 18:59 Intake Total 756 420 Output Total 1000 1500 Balance -244 -1500 420 Weight 77.111 kg Intake: Oral 356 420 Other 400 Output: Urine 1000 1500 Uretheral (Braun) 1000 Other: Voiding Method Indwelling Catheter Indwelling Catheter - Labs CBC & Chem 7: 09/23/20 07:06 09/21/20 05:30 Labs: Abnormal Lab Results - Last 24 Hours (Table) 09/22/20 09/22/20 09/22/20 Range/Units 16:31 18:47 20:15 RBC 2.75 L (3.80-5.40) m/uL Hgb 8.6 L (11.4-16.0) gm/dL Hct 26.9 L (34.0-46.0) % RDW 17.6 H (11.5-15.5) % Lymphocytes # 0.9 L (1.0-4.8) k/uL POC Glucose (mg/dL) 166 H 271 H (75-99) mg/dL 09/22/20 09/23/20 09/23/20 Range/Units 22:35 04:00 06:41 RBC (3.80-5.40) m/uL Hgb (11.4-16.0) gm/dL Hct (34.0-46.0) % RDW (11.5-15.5) % Lymphocytes # (1.0-4.8) k/uL POC Glucose (mg/dL) 172 H 117 H 116 H (75-99) mg/dL 09/23/20 09/23/20 Range/Units 07:06 11:36 RBC 2.48 L (3.80-5.40) m/uL Hgb 7.9 L (11.4-16.0) gm/dL Hct 23.9 L (34.0-46.0) % RDW 17.7 H (11.5-15.5) % Lymphocytes # (1.0-4.8) k/uL POC Glucose (mg/dL) 204 H (75-99) mg/dL Microbiology - Last 24 Hours (Table) 09/21/20 02:10 Urine Culture - Final Urine,Clean Catch Pseudomonas aeruginosa 09/21/20 16:20 Urine Culture - Preliminary Urine,Voided Gram Neg Bacilli
[2020-09-23 14:38] VITALS: BP 127/69; PULSE 60; TEMP 97.5
[2020-09-23 16:41] LABS: Glucose,Whole Blood 225 mg/dL (75-99)
== END 2020-09-23 17:25 | DRG 637 ==
LOC: EC 09:36 → 4SSUR 14:34 → 5NMEDONC 20:09
PROVIDERS: ADMIT Family Medicine; ATTEND Family Medicine
DX: E11.649 Type 2 diabetes mellitus with hypoglycemia without coma (principal); G93.41 Metabolic encephalopathy; I13.0 Hypertensive heart and chronic kidney disease with heart failure and stage 1 through stage 4 chronic kidney disease, or unspecified chronic kidney disease; I50.32 Chronic diastolic (congestive) heart failure; N39.0 Urinary tract infection, site not specified; E44.0 Moderate protein-calorie malnutrition; I48.0 Paroxysmal atrial fibrillation; R62.7 Adult failure to thrive; I25.10 Atherosclerotic heart disease of native coronary artery without angina pectoris; E86.0 Dehydration; L89.312 Pressure ulcer of right buttock, stage 2; N18.30 Chronic kidney disease, stage 3 unspecified; E11.22 Type 2 diabetes mellitus with diabetic chronic kidney disease; E78.5 Hyperlipidemia, unspecified; D63.1 Anemia in chronic kidney disease; Z20.828 Contact with and (suspected) exposure to other viral communicable diseases; Z60.2 Problems related to living alone; R32 Unspecified urinary incontinence; I35.0 Nonrheumatic aortic (valve) stenosis; Z79.01 Long term (current) use of anticoagulants; Z79.82 Long term (current) use of aspirin; Z79.84 Long term (current) use of oral hypoglycemic drugs; Z79.899 Other long term (current) drug therapy; Z88.1 Allergy status to other antibiotic agents; Z88.0 Allergy status to penicillin; Z95.5 Presence of coronary angioplasty implant and graft; Z98.890 Other specified postprocedural states; Z82.49 Family history of ischemic heart disease and other diseases of the circulatory system; Z82.3 Family history of stroke; Z83.3 Family history of diabetes mellitus; Z87.891 Personal history of nicotine dependence; Z87.440 Personal history of urinary (tract) infections; Z85.828 Personal history of other malignant neoplasm of skin; Z81.8 Family history of other mental and behavioral disorders
CPT/HCPCS: 36415; 70450; 71046; 80048; 80053; 80306; 81001; 82550; 82607; 82728; 82746; 83540; 83550; 84484; 85025; 85027; 85610; 85730; 87077; 87086; 87186; 87635; 93005; 94760; 96360; 96361; 96374; 99285

== ENCOUNTER 2020-09-25 02:06 | Inpatient (IN) | payer MEDICARE ==
[2020-09-25] MEDS ORDERED: PANTOPRAZOLE 40 MG/10 ML VIAL IVP STA (02:23)
[2020-09-25] MEDS ORDERED: ONDANSETRON 4 MG/2 ML VIAL IVP STA (02:23)
[2020-09-25] MEDS ORDERED: SODIUM CHLORIDE 0.9% 1,000 ML IV STA (02:23)
--- NOTE | 2020-09-25 02:24 | ED ---
Altered Mental Status HPI - General Chief Complaint: GI Bleed Stated Complaint: GI Bleed Time Seen by Provider: 09/25/20 02:23 Source: EMS, RN notes reviewed, old records reviewed Mode of arrival: EMS Limitations: altered mental status - History of Present Illness Initial Comments: This is a 85-year-old female who was unable to provide history. Patient's brought in for weakness altered mental status not acting appropriately. EMS states patient a large bloody bowel movement on Route ER, patient herself without significant complaints of pain or MD Complaint: altered mental status, weakness -: unknown Severity: moderate Consistency of Symptoms: getting worse Context: history of similar presentation Associated Symptoms: weakness - Related Data Home Medications Medication Instructions Recorded Confirmed Potassium Chloride [K-Tab ER] 10 meq PO DAILY 06/23/14 09/17/20 hydrALAZINE HCL [Apresoline] 50 mg PO TID 12/08/16 09/17/20 Magnesium Oxide 400 mg PO DAILY 02/17/17 09/17/20 Apixaban [Eliquis] 2.5 mg PO BID 01/29/18 09/17/20 Ascorbic Acid [Vitamin C] 500 mg PO DAILY 01/29/18 09/17/20 Cholecalciferol [Vitamin D3] 800 unit PO DAILY 07/21/20 09/17/20 Docusate [Colace] 200 mg PO DAILY 07/21/20 09/17/20 lisinopriL [Zestril] 2.5 mg PO HS 07/21/20 09/17/20 Acetaminophen [Tylenol] 650 mg PO Q4H PRN 09/06/20 09/17/20 Aspirin 81 mg PO DAILY@0900 09/06/20 09/17/20 Diltiazem HCl [Cardizem] 90 mg PO BID 09/06/20 09/17/20 Lovastatin [Altoprev] 20 mg PO HS 09/06/20 09/17/20 Multivitamins, Thera [Multivitamin 1 tab PO DAILY 09/06/20 09/17/20 (formulary)] Polyethylene Glycol 3350 [Miralax] 17 gm PO DAILY 09/06/20 09/17/20 Vitamin E 400 unit PO DAILY 09/06/20 09/17/20 allopurinoL [Zyloprim] 150 mg PO DAILY 09/06/20 09/17/20 hydrALAZINE HCL 25 mg PO TID 09/06/20 09/17/20 Previous Rx's Medication Instructions Recorded Famotidine [Pepcid] 20 mg PO DAILY #30 tab 11/23/17 Furosemide [Lasix] 40 mg PO BID@0900,1600 tab 07/30/20 Metoprolol Tartrate [Lopressor] 75 mg PO BID #60 tab 07/30/20 Amoxicillin/Potassium Clav 1 tab PO Q12HR 1 Days #14 tab 09/10/20 [Augmentin 500-125 Tablet] Ciprofloxacin HCl [Cipro] 500 mg PO Q12HR #14 tablet 09/23/20 Cyanocobalamin [Vitamin B-12] 500 mcg PO DAILY tab 09/23/20 Megestrol [Megace] 400 mg PO DAILY #30 ml 09/23/20 traMADol HCl [Ultram] 50 mg PO QID #120 tab 09/23/20 traMADol HCl [Ultram] 50 mg PO QID #120 tab 09/23/20 Allergies Allergy/AdvReac Type Severity Reaction Status Date / Time cephalexin monohydrate Allergy Rash/Hives Verified 09/17/20 10:18 [From Keflex] rofecoxib [From Vioxx] Allergy Unknown Verified 09/17/20 10:18 doxycycline [From Vibramycin] AdvReac Nausea & Verified 09/17/20 10:18 Vomiting Review of Systems ROS Statement: Those systems with pertinent positive or pertinent negative responses have been documented in the HPI. ROS Other: All systems not noted in ROS Statement are negative. Past Medical History Past Medical History: Coronary Artery Disease (CAD), Cancer, Diabetes Mellitus, GERD/Reflux, Hyperlipidemia, Hypertension, Osteoarthritis (OA), Renal Disease Additional Past Medical History / Comment(s): USES A WALKER, LEG SWELLING, MURMUR, SINUS PROBLEMS, BENIGN POLYPS, INCONT OF URINE, PAST HX ANEMIA, "kidney function-3.5", severe aortic stenosis, patent foramen ovale. SKIN CANCER History of Any Multi-Drug Resistant Organisms: None Reported Past Surgical History: Heart Catheterization, Heart Catheterization With Stent Additional Past Surgical History / Comment(s): CATARACT SURGERY, COLONOSCOPY, bisi, TAVR 01/03/2018. "STENT IN [facility]". Past Anesthesia/Blood Transfusion Reactions: No Reported Reaction Date of Last Stent Placement:: January 03, 2018 Past Psychological History: No Psychological Hx Reported Smoking Status: Former smoker Past Alcohol Use History: None Reported Past Drug Use History: None Reported - Past Family History Mother Family Medical History: CVA/TIA, Diabetes Mellitus Father Family Medical History: Cancer, Coronary Artery Disease (CAD) Brother(s) Family Medical History: CVA/TIA, Diabetes Mellitus Sister(s) Family Medical History: Dementia Son(s) Family Medical History: No Reported History Daughter(s) Family Medical History: No Reported History General Exam Limitations: altered mental status General appearance: alert, in no apparent distress Head exam: Present: atraumatic, normocephalic, normal inspection Eye exam: Present: normal appearance, PERRL, EOMI. Absent: scleral icterus, conjunctival injection, periorbital swelling ENT exam: Present: normal exam, mucous membranes moist Neck exam: Present: normal inspection. Absent: tenderness, meningismus, lymphadenopathy Respiratory exam: Present: normal lung sounds bilaterally. Absent: respiratory distress, wheezes, rales, rhonchi, stridor Cardiovascular Exam: Present: regular rate, normal rhythm, normal heart sounds. Absent: systolic murmur, diastolic murmur, rubs, gallop, clicks GI/Abdominal exam: Present: soft, normal bowel sounds. Absent: distended, tenderness, guarding, rebound, rigid Extremities exam: Present: normal inspection, full ROM, normal capillary refill. Absent: tenderness, pedal edema, joint swelling, calf tenderness Back exam: Present: normal inspection Neurological exam: Present: alert, oriented X3, CN II-XII intact Psychiatric exam: Present: normal affect, normal mood Skin exam: Present: warm, dry, intact, normal color. Absent: rash Course Vital Signs 09/25/20 02:08 Temperature 98.6 F Pulse Rate 96 Respiratory 18 Rate Blood Pressure 185/73 O2 Sat by Pulse 95 Oximetry - Reevaluation(s) Reevaluation #1: 09/25/20 02:56 Medical record is reviewed Reevaluation #2: 09/25/20 03:29 Patient informed results, again remains a poor story Reevaluation #3: 09/25/20 03:29 No recurrent GI bleed here in the ER no active blood per rectum Medical Decision Making - Medical Decision Making 85 female GI bleed per history, patient be admitted for monitoring of CBC, overall hemodynamics support - Lab Data Result diagrams: 09/25/20 02:23 09/25/20 02:23 Lab Results 09/25/20 09/25/20 09/25/20 Range/Units 02:23 02:23 02:23 WBC 8.2 (3.8-10.6) k/uL RBC 2.65 L (3.80-5.40) m/uL Hgb 8.2 L (11.4-16.0) gm/dL Hct 25.8 L (34.0-46.0) % MCV 97.2 (80.0-100.0) fL MCH 31.0 (25.0-35.0) pg MCHC 31.9 (31.0-37.0) g/dL RDW 18.5 H (11.5-15.5) % Plt Count 381 (150-450) k/uL MPV 7.1 Neutrophils % 67 % Lymphocytes % 18 % Monocytes % 5 % Eosinophils % 9 % Basophils % 0 % Neutrophils # 5.5 (1.3-7.7) k/uL Lymphocytes # 1.5 (1.0-4.8) k/uL Monocytes # 0.4 (0-1.0) k/uL Eosinophils # 0.7 (0-0.7) k/uL Basophils # 0.0 (0-0.2) k/uL Hypochromasia Slight Anisocytosis Slight Macrocytosis Slight PT 10.6 (9.0-12.0) sec INR 1.0 (<1.2) APTT 26.2 (22.0-30.0) sec Sodium 136 L (137-145) mmol/L Potassium 4.4 (3.5-5.1) mmol/L Chloride 105 (98-107) mmol/L Carbon Dioxide 24 (22-30) mmol/L Anion Gap 7 mmol/L BUN 39 H (7-17) mg/dL Creatinine 1.67 H (0.52-1.04) mg/dL Est GFR (CKD-EPI)AfAm 32 (>60 ml/min/1.73 sqM) Est GFR (CKD-EPI)NonAf 28 (>60 ml/min/1.73 sqM) Glucose 102 H (74-99) mg/dL Plasma Lactic Acid Evgeny (0.7-2.0) mmol/L Calcium 8.8 (8.4-10.2) mg/dL Magnesium 2.0 (1.6-2.3) mg/dL Total Bilirubin 0.5 (0.2-1.3) mg/dL AST 21 (14-36) U/L ALT 10 (4-34) U/L Alkaline Phosphatase 58 (38-126) U/L Ammonia (<30) umol/L Creatine Kinase 28 L (30-135) U/L Troponin I (0.000-0.034) ng/mL Total Protein 6.0 L (6.3-8.2) g/dL Albumin 3.1 L (3.5-5.0) g/dL Lipase 34 (23-300) U/L Blood Type Blood Type Recheck Bld Type Recheck Status Antibody Screen Spec Expiration Date 09/25/20 09/25/20 09/25/20 Range/Units 02:23 02:23 02:23 WBC (3.8-10.6) k/uL RBC (3.80-5.40) m/uL Hgb (11.4-16.0) gm/dL Hct (34.0-46.0) % MCV (80.0-100.0) fL MCH (25.0-35.0) pg MCHC (31.0-37.0) g/dL RDW (11.5-15.5) % Plt Count (150-450) k/uL MPV Neutrophils % % Lymphocytes % % Monocytes % % Eosinophils % % Basophils % % Neutrophils # (1.3-7.7) k/uL Lymphocytes # (1.0-4.8) k/uL Monocytes # (0-1.0) k/uL Eosinophils # (0-0.7) k/uL Basophils # (0-0.2) k/uL Hypochromasia Anisocytosis Macrocytosis PT (9.0-12.0) sec INR (<1.2) APTT (22.0-30.0) sec Sodium (137-145) mmol/L Potassium (3.5-5.1) mmol/L Chloride (98-107) mmol/L Carbon Dioxide (22-30) mmol/L Anion Gap mmol/L BUN (7-17) mg/dL Creatinine (0.52-1.04) mg/dL Est GFR (CKD-EPI)AfAm (>60 ml/min/1.73 sqM) Est GFR (CKD-EPI)NonAf (>60 ml/min/1.73 sqM) Glucose (74-99) mg/dL Plasma Lactic Acid Evgeny 1.0 (0.7-2.0) mmol/L Calcium (8.4-10.2) mg/dL Magnesium (1.6-2.3) mg/dL Total Bilirubin (0.2-1.3) mg/dL AST (14-36) U/L ALT (4-34) U/L Alkaline Phosphatase (38-126) U/L Ammonia <9 (<30) umol/L Creatine Kinase (30-135) U/L Troponin I 0.013 (0.000-0.034) ng/mL Total Protein (6.3-8.2) g/dL Albumin (3.5-5.0) g/dL Lipase (23-300) U/L Blood Type A Positive Blood Type Recheck A Pos Bld Type Recheck Status No Antibody Screen NEGATIVE Spec Expiration Date 09/28/2020 - 2322 Disposition Clinical Impression: Acute on chronic renal failure, Dehydration, Altered mental status, Gastrointestinal hemorrhage Disposition: ADMITTED IP TO THIS HOSP Condition: Fair Is patient prescribed a controlled substance at d/c from ED?: No Referrals: Orion Bose MD [Primary Care Provider] - 1-2 days
[2020-09-25 02:35] LABS: Anisocytosis Slight; Basophils % (A) 0 %; Eosinophils # (A) 0.7 k/uL (0-0.7); Eosinophils % (A) 9 %; HCT 25.8 % (34.0-46.0); HGB 8.2 gm/dL (11.4-16.0); Hypochromasia Slight; Lymphocytes # (A) 1.5 k/uL (1.0-4.8); Lymphocytes % (A) 18 %; MCHC 31.9 g/dL (31.0-37.0); MCV 97.2 fL (80.0-100.0); Macrocytosis Slight; Mean Platelet Volume 7.1; Monocytes # (A) 0.4 k/uL (0-1.0); Monocytes % (A) 5 %; Neutrophils # (A) 5.5 k/uL (1.3-7.7); Neutrophils % (A) 67 %; Platelet Count 381 k/uL (150-450); RBC 2.65 m/uL (3.80-5.40); RDW 18.5 % (11.5-15.5); WBC 8.2 k/uL (3.8-10.6)
[2020-09-25 02:45] LABS: Partial Thromboplastin Time 26.2 sec (22.0-30.0); Prothrombin Time 10.6 sec (9.0-12.0)
[2020-09-25 02:47] LABS: Albumin 3.1 g/dL (3.5-5.0); Calcium 8.8 mg/dL (8.4-10.2); Potassium 4.4 mmol/L (3.5-5.1); Total Bilirubin 0.5 mg/dL (0.2-1.3)
[2020-09-25 04:11] LABS: Appearance,Urine Clear (Clear); Bilirubin,Urine Negative (Negative); Blood,Urine Negative (Negative); Color,Urine Light Yellow; Glucose,Urine (UA) Negative (Negative); Ketones,Urine Negative (Negative); Leukocyte Esterase,Urine Negative (Negative); Nitrite,Urine Negative (Negative); PH, Urine 7.5 (5.0-8.0); Protein,Urine Negative (Negative); Specific Gravity,Urine 1.011 (1.001-1.035); Urobilinogen,Urine <2.0 mg/dL (<2.0)
[2020-09-25 07:28] LABS: Glucose,Whole Blood 107 mg/dL (75-99)
[2020-09-25 11:39] LABS: Anisocytosis Slight; HCT 22.5 % (34.0-46.0); Hypochromasia Slight; MCH 30.3 pg (25.0-35.0); MCHC 30.9 g/dL (31.0-37.0); Macrocytosis Slight; Mean Platelet Volume 6.9; Platelet Count 327 k/uL (150-450); RDW 18.4 % (11.5-15.5); WBC 6.5 k/uL (3.8-10.6)
[2020-09-25 11:54] LABS: Glucose,Whole Blood 112 mg/dL (75-99)
[2020-09-25] MEDS: METOPROLOL TARTRATE 25 MG TAB PO SCH ×2 (12:44→20:43)
[2020-09-25] MEDS: DILTIAZEM ORAL 30 MG TAB PO SCH ×2 (12:44→20:43)
[2020-09-25] MEDS: CIPROFLOXACIN HCL 500 MG TAB PO SCH ×2 (12:45→20:43)
[2020-09-25] MEDS: FAMOTIDINE 20 MG TAB PO SCH (12:45)
--- NOTE | 2020-09-25 12:48 | P.GSCN ---
History of Present Illness Consult date: 09/25/20 History of present illness: CHIEF COMPLAINT: Blood in stool HISTORY OF PRESENT ILLNESS: This is a 85-year-old female with a history of anemia, coronary artery disease with stent, pacemaker, paroxysmal atrial fibrillation anticoagulated with Eliquis, chronic kidney disease, GERD, hyperlipidemia, hypertension, severe aortic stenosis status post TAPVR and 2018 and patent foramen ovale. Patient is confused and unable to give history. History was obtained from chart. Patient was brought from [facility] due to altered mental status and increase in weakness. She was just discharged from the hospital on 09/23/2020 due to weakness, dehydration and a UTI. Apparently at [facility] she had a bloody bowel movement with clots at [facility] and a large bloody bowel movement in transit to the ER per EMS. On admission hemoglobin was 8.2. Per nursing staff patient had no further bloody stools through the night or this morning. Patient lying in bed comfortably with no distress. Patient denies any abdominal pain. PAST MEDICAL HISTORY: See list. PAST SURGICAL HISTORY: See list. MEDICATIONS: See list. ALLERGIES: See list. SOCIAL HISTORY: No illicit drug use. REVIEW OF SYSTEMS: CONSTITUTIONAL: Denies fever or chills. HEENT: Denies blurred vision, vision changes, or eye pain. Denies hemoptysis CARDIOVASCULAR: Denies chest pain or pressure. RESPIRATORY: No shortness of breath. GASTROINTESTINAL: See HPI for pertinent findings HEMATOLOGIC: Denies bleeding disorders. GENITOURINARY: Denies any blood in urine or increased urinary frequency. SKIN: Denies pruitis. Denies rash. PHYSICAL EXAM: VITAL SIGNS: Reviewed GENERAL: Well-developed in no acute distress. HEENT: No sclera icterus. Extraocular movements grossly intact. Moist buccal mucosa. Head is atraumatic, normocephalic. No nasal drainage. ABDOMEN: Soft. Nondistended. Nontender NEUROLOGIC: Patient is pleasantly confused LABORATORY DATA: WBC 8.2 hemoglobin 8.2 and repeat home hemoglobin 7.0 creatinine 1.67 IMAGING: ASSESSMENT: 1. Acute GI bleed 2. Acute blood loss anemia 3. History of chronic anemia PLAN: -Plan for colonoscopy on 09/29/[address] Cespedes -Continue monitor hemoglobin -Continue IV fluids -Recommend to hold Eliquis and aspirin for now Thank you for this consultation Physician Intel Analyst note has been reviewed by physician. Signing provider agrees with the documented findings, assessment, and plan of care. Past Medical History Past Medical History: Coronary Artery Disease (CAD), Cancer, Diabetes Mellitus, GERD/Reflux, Hyperlipidemia, Hypertension, Osteoarthritis (OA), Renal Disease Additional Past Medical History / Comment(s): USES A WALKER, LEG SWELLING, MURMUR, SINUS PROBLEMS, BENIGN POLYPS, INCONT OF URINE, PAST HX ANEMIA, "kidney function-3.5", severe aortic stenosis, patent foramen ovale. SKIN CANCER History of Any Multi-Drug Resistant Organisms: None Reported Past Surgical History: Heart Catheterization, Heart Catheterization With Stent Additional Past Surgical History / Comment(s): CATARACT SURGERY, COLONOSCOPY, bisi, TAVR 01/03/2018. "STENT IN [facility]". Past Anesthesia/Blood Transfusion Reactions: No Reported Reaction Date of Last Stent Placement:: January 03, 2018 Past Psychological History: No Psychological Hx Reported Additional Psychological History / Comment(s): lives with her and the family home. Stopped smoking 20 years ago. No international travel. The experience. No animal exposures Smoking Status: Never smoker Past Alcohol Use History: None Reported Additional Past Alcohol Use History / Comment(s): Patient smoked one to 2 packs per day for 40 years and quit in 1989. Past Drug Use History: None Reported - Past Family History Mother Family Medical History: CVA/TIA, Diabetes Mellitus Father Family Medical History: Cancer, Coronary Artery Disease (CAD) Brother(s) Family Medical History: CVA/TIA, Diabetes Mellitus Sister(s) Family Medical History: Dementia Son(s) Family Medical History: No Reported History Daughter(s) Family Medical History: No Reported History Medications and Allergies Home Medications Medication Instructions Recorded Confirmed Type Potassium Chloride [K-Tab ER] 10 meq PO DAILY 06/23/14 09/25/20 History hydrALAZINE HCL [Apresoline] 50 mg PO TID 12/08/16 09/25/20 History Magnesium Oxide 400 mg PO DAILY 02/17/17 09/25/20 History Famotidine [Pepcid] 20 mg PO DAILY #30 tab 11/23/17 09/25/20 Rx Apixaban [Eliquis] 2.5 mg PO BID 01/29/18 09/25/20 History Ascorbic Acid [Vitamin C] 500 mg PO DAILY 01/29/18 09/25/20 History Cholecalciferol [Vitamin D3] 800 unit PO DAILY 07/21/20 09/25/20 History Docusate [Colace] 200 mg PO DAILY 07/21/20 09/25/20 History lisinopriL [Zestril] 2.5 mg PO HS 07/21/20 09/25/20 History Furosemide [Lasix] 40 mg PO BID@0900,1600 tab 07/30/20 09/25/20 Rx Metoprolol Tartrate [Lopressor] 75 mg PO BID #60 tab 07/30/20 09/25/20 Rx Acetaminophen [Tylenol] 650 mg PO Q4H PRN 09/06/20 09/25/20 History Aspirin 81 mg PO DAILY@0900 09/06/20 09/25/20 History Diltiazem HCl [Cardizem] 90 mg PO BID 09/06/20 09/25/20 History Lovastatin [Altoprev] 20 mg PO HS 09/06/20 09/25/20 History Multivitamins, Thera [Multivitamin 1 tab PO DAILY 09/06/20 09/25/20 History (formulary)] Polyethylene Glycol 3350 [Miralax] 17 gm PO DAILY 09/06/20 09/25/20 History Vitamin E 400 unit PO DAILY 09/06/20 09/25/20 History allopurinoL [Zyloprim] 150 mg PO DAILY 09/06/20 09/25/20 History hydrALAZINE HCL 25 mg PO TID 09/06/20 09/25/20 History Amoxicillin/Potassium Clav 1 tab PO Q12HR 1 Days #14 tab 09/10/20 09/25/20 Rx [Augmentin 500-125 Tablet] Ciprofloxacin HCl [Cipro] 500 mg PO Q12HR #14 tablet 09/23/20 09/25/20 Rx Cyanocobalamin [Vitamin B-12] 500 mcg PO DAILY tab 09/23/20 09/25/20 Rx Megestrol [Megace] 400 mg PO DAILY #30 ml 09/23/20 09/25/20 Rx traMADol HCl [Ultram] 50 mg PO QID #120 tab 09/23/20 09/25/20 Rx Allergies Allergy/AdvReac Type Severity Reaction Status Date / Time cephalexin monohydrate Allergy Rash/Hives Verified 09/25/20 09:39 [From Keflex] rofecoxib [From Vioxx] Allergy Unknown Verified 09/25/20 09:39 doxycycline [From Vibramycin] AdvReac Nausea & Verified 09/25/20 09:39 Vomiting Surgical - Exam Vital Signs Temp Pulse Resp BP Pulse Ox 98.6 F 96 18 185/73 95 09/25/20 02:08 09/25/20 02:08 09/25/20 02:08 09/25/20 02:08 09/25/20 02:08 Results - Labs 09/25/20 11:16 09/25/20 02:23 Abnormal Lab Results - Last 24 Hours (Table) 09/25/20 09/25/20 09/25/20 Range/Units 02:23 02:23 07:06 RBC 2.65 L (3.80-5.40) m/uL Hgb 8.2 L (11.4-16.0) gm/dL Hct 25.8 L (34.0-46.0) % MCHC (31.0-37.0) g/dL RDW 18.5 H (11.5-15.5) % Sodium 136 L (137-145) mmol/L BUN 39 H (7-17) mg/dL Creatinine 1.67 H (0.52-1.04) mg/dL Glucose 102 H (74-99) mg/dL POC Glucose (mg/dL) 107 H (75-99) mg/dL Creatine Kinase 28 L (30-135) U/L Total Protein 6.0 L (6.3-8.2) g/dL Albumin 3.1 L (3.5-5.0) g/dL 09/25/20 09/25/20 Range/Units 11:16 11:48 RBC 2.30 L (3.80-5.40) m/uL Hgb 7.0 L (11.4-16.0) gm/dL Hct 22.5 L (34.0-46.0) % MCHC 30.9 L (31.0-37.0) g/dL RDW 18.4 H (11.5-15.5) % Sodium (137-145) mmol/L BUN (7-17) mg/dL Creatinine (0.52-1.04) mg/dL Glucose (74-99) mg/dL POC Glucose (mg/dL) 112 H (75-99) mg/dL Creatine Kinase (30-135) U/L Total Protein (6.3-8.2) g/dL Albumin (3.5-5.0) g/dL Diabetes panel 09/25/20 Range/Units 02:23 Sodium 136 L (137-145) mmol/L Potassium 4.4 (3.5-5.1) mmol/L Chloride 105 (98-107) mmol/L Carbon Dioxide 24 (22-30) mmol/L BUN 39 H (7-17) mg/dL Creatinine 1.67 H (0.52-1.04) mg/dL Glucose 102 H (74-99) mg/dL Calcium 8.8 (8.4-10.2) mg/dL AST 21 (14-36) U/L ALT 10 (4-34) U/L Alkaline Phosphatase 58 (38-126) U/L Total Protein 6.0 L (6.3-8.2) g/dL Albumin 3.1 L (3.5-5.0) g/dL Calcium panel 09/25/20 Range/Units 02:23 Calcium 8.8 (8.4-10.2) mg/dL Albumin 3.1 L (3.5-5.0) g/dL Pituitary panel 09/25/20 Range/Units 02:23 Sodium 136 L (137-145) mmol/L Potassium 4.4 (3.5-5.1) mmol/L Chloride 105 (98-107) mmol/L Carbon Dioxide 24 (22-30) mmol/L BUN 39 H (7-17) mg/dL Creatinine 1.67 H (0.52-1.04) mg/dL Glucose 102 H (74-99) mg/dL Calcium 8.8 (8.4-10.2) mg/dL Adrenal panel 09/25/20 Range/Units 02:23 Sodium 136 L (137-145) mmol/L Potassium 4.4 (3.5-5.1) mmol/L Chloride 105 (98-107) mmol/L Carbon Dioxide 24 (22-30) mmol/L BUN 39 H (7-17) mg/dL Creatinine 1.67 H (0.52-1.04) mg/dL Glucose 102 H (74-99) mg/dL Calcium 8.8 (8.4-10.2) mg/dL Total Bilirubin 0.5 (0.2-1.3) mg/dL AST 21 (14-36) U/L ALT 10 (4-34) U/L Alkaline Phosphatase 58 (38-126) U/L Total Protein 6.0 L (6.3-8.2) g/dL Albumin 3.1 L (3.5-5.0) g/dL
[2020-09-25 13:25] VITALS: BMI 32.9
[2020-09-25 16:58] LABS: Glucose,Whole Blood 118 mg/dL (75-99)
[2020-09-25 21:03] LABS: Glucose,Whole Blood 112 mg/dL (75-99)
[2020-09-26 06:26] LABS: Anisocytosis Slight; HCT 27.4 % (34.0-46.0); Hypochromasia Slight; MCH 31.3 pg (25.0-35.0); MCHC 32.5 g/dL (31.0-37.0); MCV 96.4 fL (80.0-100.0); Macrocytosis Slight; Mean Platelet Volume 7.9; Platelet Count 339 k/uL (150-450); RBC 2.85 m/uL (3.80-5.40); RDW 18.2 % (11.5-15.5); WBC 7.8 k/uL (3.8-10.6)
[2020-09-26 06:39] LABS: HGB 8.9 gm/dL (11.4-16.0)
[2020-09-26 06:49] LABS: Glucose,Whole Blood 106 mg/dL (75-99)
[2020-09-26] MEDS: FAMOTIDINE 20 MG TAB PO SCH (08:38)
[2020-09-26] MEDS: CIPROFLOXACIN HCL 500 MG TAB PO SCH ×2 (08:38→22:40)
[2020-09-26] MEDS: METOPROLOL TARTRATE 25 MG TAB PO SCH ×2 (08:38→21:54)
[2020-09-26] MEDS: DILTIAZEM ORAL 30 MG TAB PO SCH ×2 (08:39→22:40)
--- NOTE | 2020-09-26 08:40 | P.PN ---
Subjective Progress Note Date: 09/26/20 Principal diagnosis: The patient is here essentially for altered mental status and GI bleed. Appreciate multiple consultants input. We'll ask neurology to see patient today. The patient still has some cognitive decline. I do suspect element of delirium or onset of dementia. Hemoglobin has been stable otherwise. Objective - Vital Signs Vital signs: Vital Signs Temp 98.1 F 09/26/20 01:45 Pulse 62 09/26/20 01:45 Resp 16 09/26/20 01:45 BP 152/72 09/26/20 01:45 Pulse Ox 94 L 09/26/20 01:45 Intake & Output 09/25/20 09/26/20 09/26/20 18:59 06:59 18:59 Intake Total 0 310 Balance 0 310 Weight 81.647 kg Intake: Blood Product 0 310 Rc As-1 Unit 0 310 [id number] Other: Voiding Method Bedpan Bedpan Diaper Diaper Incontinent Incontinent # Voids 1 1 - Constitutional General appearance: Present: average body habitus - EENT Eyes: Absent: abnormal pupil - Neck Neck: Absent: lymphadenopathy - Respiratory Respiratory: bilateral: diminished - Cardiovascular Rhythm: regular Heart sounds: normal: S1, S2 Abnormal Heart Sounds: Absent: S3 Gallop - Gastrointestinal General gastrointestinal: Present: soft. Absent: tenderness - Labs CBC & Chem 7: 09/26/20 06:09 09/25/20 02:23 Labs: Abnormal Lab Results - Last 24 Hours (Table) 09/25/20 09/25/20 09/25/20 Range/Units 02:23 11:16 11:48 RBC 2.30 L (3.80-5.40) m/uL Hgb 7.0 L (11.4-16.0) gm/dL Hct 22.5 L (34.0-46.0) % MCHC 30.9 L (31.0-37.0) g/dL RDW 18.4 H (11.5-15.5) % POC Glucose (mg/dL) 112 H (75-99) mg/dL Crossmatch See Detail 09/25/20 09/25/20 09/26/20 Range/Units 16:51 21:02 06:09 RBC 2.85 L (3.80-5.40) m/uL Hgb 8.9 L D (11.4-16.0) gm/dL Hct 27.4 L (34.0-46.0) % MCHC (31.0-37.0) g/dL RDW 18.2 H (11.5-15.5) % POC Glucose (mg/dL) 118 H 112 H (75-99) mg/dL Crossmatch 09/26/20 Range/Units 06:46 RBC (3.80-5.40) m/uL Hgb (11.4-16.0) gm/dL Hct (34.0-46.0) % MCHC (31.0-37.0) g/dL RDW (11.5-15.5) % POC Glucose (mg/dL) 106 H (75-99) mg/dL Crossmatch Assessment and Plan (1) Atrial fibrillation with RVR Current Visit: No Status: Acute Code(s): I48.91 - UNSPECIFIED ATRIAL FIBRILLATION SNOMED Code(s): 657003812336567 (2) High risk for readmission Current Visit: No Status: Acute Code(s): Z91.89 - [facility] PERSONAL RISK FACTORS, NOT ELSEWHERE CLASSIFIED SNOMED Code(s): 732349357 (3) Neurologic gait dysfunction Current Visit: No Status: Acute Code(s): R26.9 - UNSPECIFIED ABNORMALITIES OF GAIT AND MOBILITY SNOMED Code(s): 90507443 (4) History of hypertension Current Visit: No Status: Chronic Code(s): Z86.79 - PERSONAL HISTORY OF OTHER DISEASES OF THE CIRCULATORY SYSTEM SNOMED Code(s): 826142665 (5) Gastrointestinal hemorrhage Current Visit: Yes Status: Acute Code(s): K92.2 - GASTROINTESTINAL HEMORRHAGE, UNSPECIFIED SNOMED Code(s): 58543744 Plan: Check CBC and CMP in a.m. Dr. Hager's group Route covering for the weekend. We'll ask neurology to comment. I do suspect this is more delirium or metabolic. See orders otherwise.
[2020-09-26 09:22] LABS: African American GFR (CKD) 36.2 (60.0-200.0); Albumin 3.3 g/dL (3.80-4.90); Albumin/Globulin Ratio 1.74 (1.60-3.17); Anion Gap 8.4 mmol/L (4.00-12.00); BUN/Creat Ratio 18.67 Ratio (12.00-20.00); Calcium 8.7 mg/dL (8.7-10.3); Carbon Dioxide 23.6 mmol/L (21.6-31.8); Globulin 1.9 g/dL (1.6-3.3); Non-African American GFR(CKD) 31.2 (60.0-200.0); Potassium 4.3 mmol/L (3.5-5.5); Total Bilirubin 0.4 mg/dL (0.2-1.2); Total Protein 5.2 g/dL (6.2-8.2)
[2020-09-26 12:02] LABS: Glucose,Whole Blood 97 mg/dL (75-99)
--- NOTE | 2020-09-26 13:20 | P.PN ---
Subjective Progress Note Date: 09/26/20 CHIEF COMPLAINT: Blood in stool HISTORY OF PRESENT ILLNESS: Patient is being followed for her GI bleed. Per nursing patient has had no further blood in the stool. She is less confused today. She knew her name and the year. She denies any abdominal pain. Currently on a clear liquid diet. Scheduled for colonoscopy on Tuesday. Afebrile. Patient did receive 1 unit of blood yesterday her hemoglobin has gone up from 7-8.9. WBC is 7.8 Medicine service is consulted neurology in regards to patient's confusion PHYSICAL EXAM: VITAL SIGNS: Reviewed. GENERAL: Well-developed in no acute distress. HEENT: No sclera icterus. Extraocular movements grossly intact. Moist buccal mucosa. Head is atraumatic, normocephalic. ABDOMEN: Soft. Nondistended. Nontender. NEUROLOGIC: Alert and oriented 2. Cranial nerves II through XII grossly intact. ASSESSMENT: 1. Acute GI bleed 2. Acute blood loss anemia 3. History of chronic anemia PLAN: -Plan for colonoscopy on 09/29/[address] Cespedes -Continue monitor hemoglobin -Continue IV fluids -Recommend to hold Eliquis and aspirin for now -Add ensure clear and continue with clear liquid diet for over the weekend Physician Counter Manager note has been reviewed by physician. Signing provider agrees with the documented findings, assessment, and plan of care. Objective - Vital Signs Vital signs: Vital Signs Temp 98 F 09/26/20 08:00 Pulse 55 L 09/26/20 08:00 Resp 16 09/26/20 08:00 BP 160/65 09/26/20 08:00 Pulse Ox 94 L 09/26/20 08:00 Intake & Output 09/25/20 09/26/20 09/26/20 18:59 06:59 18:59 Intake Total 0 310 400 Balance 0 310 400 Weight 81.647 kg Intake: Oral 400 Blood Product 0 310 Rc As-1 Unit 0 310 [id number] Other: Voiding Method Bedpan Bedpan Bedpan Diaper Diaper Diaper Incontinent Incontinent Incontinent # Voids 1 1 1 - Labs CBC & Chem 7: 09/26/20 06:09 09/26/20 06:09 Labs: Abnormal Lab Results - Last 24 Hours (Table) 09/25/20 09/25/20 09/25/20 Range/Units 02:23 16:51 21:02 RBC (3.80-5.40) m/uL Hgb (11.4-16.0) gm/dL Hct (34.0-46.0) % RDW (11.5-15.5) % BUN (9.0-27.0) mg/dL Est GFR (CKD-EPI)AfAm (60.0-200.0) Est GFR (CKD-EPI)NonAf (60.0-200.0) POC Glucose (mg/dL) 118 H 112 H (75-99) mg/dL Total Protein (6.2-8.2) g/dL Albumin (3.80-4.90) g/dL Crossmatch See Detail 09/26/20 09/26/20 09/26/20 Range/Units 06:09 06:09 06:46 RBC 2.85 L (3.80-5.40) m/uL Hgb 8.9 L D (11.4-16.0) gm/dL Hct 27.4 L (34.0-46.0) % RDW 18.2 H (11.5-15.5) % BUN 28.0 H (9.0-27.0) mg/dL Est GFR (CKD-EPI)AfAm 36.2 L (60.0-200.0) Est GFR (CKD-EPI)NonAf 31.2 L (60.0-200.0) POC Glucose (mg/dL) 106 H (75-99) mg/dL Total Protein 5.2 L (6.2-8.2) g/dL Albumin 3.30 L (3.80-4.90) g/dL Crossmatch
[2020-09-26 17:24] LABS: Glucose,Whole Blood 206 mg/dL (75-99)
--- NOTE | 2020-09-26 23:56 | P.CNNES ---
History of Present Illness Consult date: 09/26/20 Requesting physician: Orion Bose Reason for Consult: Altered mental status, delirium History of Present Illness: Patient is a 85-year-old female came to the hospital yesterday at 2:06 AM for altered mental status and weakness, not acting appropriately. Patient had a large bloody bowel movement en-route to the ER. Patient did not have any subjective complaints when she arrived. Her vital signs on arrival was blood pressure 185/73, pulse of 98.6. Patient was diagnosed with acute on chronic renal failure, dehydration, altered mental status and gastrointestinal hemorrhage. Patient's blood test on arrival shows WBC 8.2 hemoglobin 8.2 with platelets 381. PT/PTT normal sodium 136 potassium 4.4, BUN 39, creatinine 1.67. Hepatic panel normal. UA negative. Patient's B12 is 422, folate is normal. Vitamin D 29.3, TSH is mildly decreased 0.247 and free T4 2.17. Hemoglobin A1c 5.9. Computed tomography scan of head from 09/15/2020 showed mild to moderate atrophy including central cerebral volume loss. Moderate burden of chronic small vessel ischemic change. Patient's 2-D echo from 07/24/2020 showed normal left- ventricular size, moderate concentric LVH, EF is 55-60%. TAVR, moderate mitral annular calcification. Moderate mitral stenosis. Patient has history of severe aortic stenosis for which she had undergone TAVR. Patient was on Apixaban 2.5 mg twice a day and aspirin 81 mg. Patient states that she lives with her daughter. She broke her hip in June 2020 and since then she has not walked. She could not tell me how she fell when she broke her hip. She had a previous femoral fracture 3 years ago. Patient does have history of possible dementia. Review of Systems Patient denies headache, any chest pain, shortness of breath wheezing or cough. Denies abdominal pain nausea vomiting. She had bleeding in stools in the past. Denies any numbness tingling or focal weakness or strokelike symptoms. Patient does have right leg pain from recent surgery, difficulty walking. All other review of systems unremarkable. Past Medical History Past Medical History: Coronary Artery Disease (CAD), Cancer, Diabetes Mellitus, GERD/Reflux, Hyperlipidemia, Hypertension, Osteoarthritis (OA), Renal Disease Additional Past Medical History / Comment(s): USES A WALKER, LEG SWELLING, MURMUR, SINUS PROBLEMS, BENIGN POLYPS, INCONT OF URINE, PAST HX ANEMIA, "kidney function-3.5", severe aortic stenosis, patent foramen ovale. SKIN CANCER History of Any Multi-Drug Resistant Organisms: None Reported Past Surgical History: Heart Catheterization, Heart Catheterization With Stent Additional Past Surgical History / Comment(s): CATARACT SURGERY, COLONOSCOPY, bisi, TAVR 01/03/2018. "STENT IN [facility]". Past Anesthesia/Blood Transfusion Reactions: No Reported Reaction Date of Last Stent Placement:: January 03, 2018 Past Psychological History: No Psychological Hx Reported Additional Psychological History / Comment(s): lives with her and the family home. Stopped smoking 20 years ago. No international travel. The experience. No animal exposures Smoking Status: Never smoker Past Alcohol Use History: None Reported Additional Past Alcohol Use History / Comment(s): Patient smoked one to 2 packs per day for 40 years and quit in 1989. Past Drug Use History: None Reported - Past Family History Mother Family Medical History: CVA/TIA, Diabetes Mellitus Father Family Medical History: Cancer, Coronary Artery Disease (CAD) Brother(s) Family Medical History: CVA/TIA, Diabetes Mellitus Sister(s) Family Medical History: Dementia Son(s) Family Medical History: No Reported History Daughter(s) Family Medical History: No Reported History Medications and Allergies Home Medications Medication Instructions Recorded Confirmed Type Potassium Chloride [K-Tab ER] 10 meq PO DAILY 06/23/14 09/25/20 History hydrALAZINE HCL [Apresoline] 50 mg PO TID 12/08/16 09/25/20 History Magnesium Oxide 400 mg PO DAILY 02/17/17 09/25/20 History Famotidine [Pepcid] 20 mg PO DAILY #30 tab 11/23/17 09/25/20 Rx Apixaban [Eliquis] 2.5 mg PO BID 01/29/18 09/25/20 History Ascorbic Acid [Vitamin C] 500 mg PO DAILY 01/29/18 09/25/20 History Cholecalciferol [Vitamin D3] 800 unit PO DAILY 07/21/20 09/25/20 History Docusate [Colace] 200 mg PO DAILY 07/21/20 09/25/20 History lisinopriL [Zestril] 2.5 mg PO HS 07/21/20 09/25/20 History Furosemide [Lasix] 40 mg PO BID@0900,1600 tab 07/30/20 09/25/20 Rx Metoprolol Tartrate [Lopressor] 75 mg PO BID #60 tab 07/30/20 09/25/20 Rx Acetaminophen [Tylenol] 650 mg PO Q4H PRN 09/06/20 09/25/20 History Aspirin 81 mg PO DAILY@0900 09/06/20 09/25/20 History Diltiazem HCl [Cardizem] 90 mg PO BID 09/06/20 09/25/20 History Lovastatin [Altoprev] 20 mg PO HS 09/06/20 09/25/20 History Multivitamins, Thera [Multivitamin 1 tab PO DAILY 09/06/20 09/25/20 History (formulary)] Polyethylene Glycol 3350 [Miralax] 17 gm PO DAILY 09/06/20 09/25/20 History Vitamin E 400 unit PO DAILY 09/06/20 09/25/20 History allopurinoL [Zyloprim] 150 mg PO DAILY 09/06/20 09/25/20 History hydrALAZINE HCL 25 mg PO TID 09/06/20 09/25/20 History Amoxicillin/Potassium Clav 1 tab PO Q12HR 1 Days #14 tab 09/10/20 09/25/20 Rx [Augmentin 500-125 Tablet] Ciprofloxacin HCl [Cipro] 500 mg PO Q12HR #14 tablet 09/23/20 09/25/20 Rx Cyanocobalamin [Vitamin B-12] 500 mcg PO DAILY tab 09/23/20 09/25/20 Rx Megestrol [Megace] 400 mg PO DAILY #30 ml 09/23/20 09/25/20 Rx traMADol HCl [Ultram] 50 mg PO QID #120 tab 09/23/20 09/25/20 Rx Allergies Allergy/AdvReac Type Severity Reaction Status Date / Time cephalexin monohydrate Allergy Rash/Hives Verified 09/25/20 09:39 [From Keflex] rofecoxib [From Vioxx] Allergy Unknown Verified 09/25/20 09:39 doxycycline [From Vibramycin] AdvReac Nausea & Verified 09/25/20 09:39 Vomiting Physical Examination - Vital Signs Vital Signs: Vital Signs Temp Pulse Pulse Resp BP BP Pulse Ox 09/26/20 14:00 98.4 F 82 16 156/62 09/26/20 08:00 98 F 55 L 16 160/65 94 L 09/26/20 01:45 98.1 F 62 16 152/72 94 L 09/25/20 20:34 98.3 F 64 16 137/66 95 Intake and Output 09/26/20 09/26/20 09/26/20 06:59 14:59 22:59 Intake Total 700 300 Balance 700 300 Intake: Oral 700 300 Other: Voiding Method Bedpan Diaper Incontinent # Voids 1 1 # Bowel Movements 2 On examination patient is an elderly female, in no acute distress. Patient is slightly inattentive. She knows that it is September 2020 in that she is the hospital although she does not know the name. She knows that she is in [facility] and states current president is "Korina". She knows the next president will be Mariana. Patient knows her date of of September 14. Speech and language functions are intact. Sometimes she has word hesitancy. On cran ial nerve examination pupils are round and reactive to light, visual david are full on confrontation, extraocular muscles are intact with no nystagmus. Face is symmetric, tongue protrudes to the midline. Palatal elevation and sensation normal, hearing is slightly decreased and shoulder shrug normal. Facial sensation is normal. On muscle strength testing the strength is normal in both arms and the left leg. Her right ankle is normal. Hip not checked because of recent fractures. Reflexes are 1+ and plantars are downgoing. Sensory touch is equal with no neglect. No ataxia for [id number] testing. Tone and bulk of muscles normal. Patient does not walk since her hip fracture. On general examination there is bilateral carotid bruit, S1 and S2 was audible. Abdomen is soft, chest is clear. No peripheral edema. Results - Laboratory Findings CBC and BMP: 09/27/20 05:40 09/27/20 05:40 Abnormal Lab Findings: Abnormal Labs 09/25/20 09/25/20 09/25/20 02:23 02:23 02:23 RBC 2.65 L Hgb 8.2 L Hct 25.8 L MCHC RDW 18.5 H Sodium 136 L BUN 39 H Creatinine 1.67 H Est GFR (CKD-EPI)AfAm Est GFR (CKD-EPI)NonAf Glucose 102 H POC Glucose (mg/dL) Creatine Kinase 28 L Total Protein 6.0 L Albumin 3.1 L Crossmatch See Detail 09/25/20 09/25/20 09/25/20 07:06 11:16 11:48 RBC 2.30 L Hgb 7.0 L Hct 22.5 L MCHC 30.9 L RDW 18.4 H Sodium BUN Creatinine Est GFR (CKD-EPI)AfAm Est GFR (CKD-EPI)NonAf Glucose POC Glucose (mg/dL) 107 H 112 H Creatine Kinase Total Protein Albumin Crossmatch 09/25/20 09/25/20 09/26/20 16:51 21:02 06:09 RBC 2.85 L Hgb 8.9 L D Hct 27.4 L MCHC RDW 18.2 H Sodium BUN Creatinine Est GFR (CKD-EPI)AfAm Est GFR (CKD-EPI)NonAf Glucose POC Glucose (mg/dL) 118 H 112 H Creatine Kinase Total Protein Albumin Crossmatch 09/26/20 09/26/20 09/26/20 06:09 06:46 17:22 RBC Hgb Hct MCHC RDW Sodium BUN 28.0 H Creatinine Est GFR (CKD-EPI)AfAm 36.2 L Est GFR (CKD-EPI)NonAf 31.2 L Glucose POC Glucose (mg/dL) 106 H 206 H Creatine Kinase Total Protein 5.2 L Albumin 3.30 L Crossmatch Assessment and Plan Assessment: * Altered mental status, likely due to delirium, superimposed on mild cognitive impairment * Anemia due to GI bleed * Carotid bruit Plan: * Carotid ultrasound for bilateral carotid bruit. * Medical management as per IM. * No other neurological workup indicated. * May follow up with neurologist as an outpatient for further management of cognitive impairment.
[2020-09-27 06:17] LABS: Anisocytosis Slight; HCT 27.4 % (34.0-46.0); HGB 9.2 gm/dL (11.4-16.0); Hypochromasia Slight; MCHC 33.4 g/dL (31.0-37.0); MCV 95.7 fL (80.0-100.0); Macrocytosis Slight; Mean Platelet Volume 7.4; Platelet Count 330 k/uL (150-450); RBC 2.86 m/uL (3.80-5.40); RDW 17.8 % (11.5-15.5); WBC 7.9 k/uL (3.8-10.6)
[2020-09-27] MEDS: METOPROLOL TARTRATE 25 MG TAB PO SCH ×2 (09:00→21:03)
[2020-09-27] MEDS: FAMOTIDINE 20 MG TAB PO SCH (09:00)
[2020-09-27] MEDS: CIPROFLOXACIN HCL 500 MG TAB PO SCH (09:00)
[2020-09-27] MEDS: DILTIAZEM ORAL 30 MG TAB PO SCH ×2 (09:01→21:05)
[2020-09-27 10:05] LABS: Albumin 3.3 g/dL (3.80-4.90); Albumin/Globulin Ratio 1.65 (1.60-3.17); Anion Gap 6.3 mmol/L (4.00-12.00); BUN/Creat Ratio 17.69 Ratio (12.00-20.00); Calcium 8.6 mg/dL (8.7-10.3); Carbon Dioxide 23.7 mmol/L (21.6-31.8); Non-African American GFR(CKD) 37.1 (60.0-200.0); Total Bilirubin 0.4 mg/dL (0.2-1.2); Total Protein 5.3 g/dL (6.2-8.2)
--- NOTE | 2020-09-27 15:40 | P.PN ---
Subjective Progress Note Date: 09/27/20 CHIEF COMPLAINT: Gastrointestinal bleed HISTORY OF PRESENT ILLNESS: The patient is a 85-year-old female with dementia who presents with GI bleed. Per discussion with nurse, bleeding has moderately improved. Patient denies any abdominal pain. She is tolerating clear liquid diet. Patient is status post hip replacement last 2 months. Otherwise, patient had received 1 unit of blood 09/25/2020. Hemoglobin has been stable 8.9-9.2. ROS: No reports of nausea and vomiting. Had non-bloody bowel movements. No fevers or chills. No new chest pain. No productive sputum PHYSICAL EXAM: VITAL SIGNS: Reviewed CONSTITUTIONAL: Well developed and in no acute distress. EYES: Conjuctivae without sclera icterus. Extraocular movements grossly intact. HEAD, EARS, NOSE, THROAT: Moist buccal mucosa. Head is atraumatic, normocephalic. Hears conversational speech. No nasal drainage. NECK: Supple. No thyroidomegaly. RESPIRATORY: Non-labored respirations and equal bilateral excursions. CARDIOVASCULAR: Palpable 2+ radial pulses. ABDOMEN: No peritonitis MUSCULOSKELETAL: No gross deformity of the lower extremities noted. No clubbing. No cyanosis. SKIN: Good skin turgor. Well perfused. NEUROLOGIC: Cranial nerves II through XII grossly intact. No focal or lateralizing signs. PSYCH: Appropriate affect. Alert and oriented to person, place and time. CLINICAL LABS: Hemoglobin of 8.9-9.2 ASSESSMENT: 1. Gastrointestinal bleed PLAN: 1. Colonoscopy advised for GI bleed 2. IV fluid hydration Objective - Vital Signs Vital signs: Vital Signs Temp 98.0 F 09/27/20 14:00 Pulse 62 09/27/20 14:00 Resp 18 09/27/20 14:00 BP 132/75 09/27/20 14:00 Pulse Ox 97 09/27/20 14:00 Intake & Output 09/26/20 09/27/20 09/27/20 18:59 06:59 18:59 Intake Total 1000 1800 Balance 1000 1800 Intake: Oral 1000 1800 Other: Voiding Method Bedpan Bedpan Diaper Diaper Incontinent Incontinent # Voids 1 1 1 # Bowel Movements 2 2 - Labs CBC & Chem 7: 09/27/20 05:40 09/27/20 05:40 Labs: Abnormal Lab Results - Last 24 Hours (Table) 09/26/20 09/27/20 09/27/20 Range/Units 17:22 05:40 05:40 RBC 2.86 L (3.80-5.40) m/uL Hgb 9.2 L (11.4-16.0) gm/dL Hct 27.4 L (34.0-46.0) % RDW 17.8 H (11.5-15.5) % Est GFR (CKD-EPI)AfAm 43.0 L (60.0-200.0) Est GFR (CKD-EPI)NonAf 37.1 L (60.0-200.0) POC Glucose (mg/dL) 206 H (75-99) mg/dL Calcium 8.6 L (8.7-10.3) mg/dL Total Protein 5.3 L (6.2-8.2) g/dL Albumin 3.30 L (3.80-4.90) g/dL Assessment and Plan (1) Gastrointestinal hemorrhage Current Visit: Yes Status: Acute Code(s): K92.2 - GASTROINTESTINAL HEMORRHAGE, UNSPECIFIED SNOMED Code(s): 66229456
--- NOTE | 2020-09-27 20:31 | US ---
EXAMINATION TYPE: US carotid duplex BILAT DATE OF EXAM: 09/27/2020 COMPARISON: NONE CLINICAL HISTORY: AMS, carotid bruit. AMS, carotid bruit EXAM MEASUREMENTS: RIGHT: Peak Systolic Velocity (PSV) cm/sec ----- Right CCA: 62.2 ----- Right ICA: 146 ----- Right ECA: 107 ICA/CCA ratio: 2.3 RIGHT: End Diastole cm/sec ----- Right CCA: 6.7 ----- Right ICA: 15.7 ----- Right ECA: 0.0 LEFT: Peak Systolic Velocity (PSV) cm/sec ----- Left CCA: 79.6 ----- Left ICA: 106 ----- Left ECA: 134 ICA/CCA ratio: 1.3 LEFT: End Diastole cm/sec ----- Left CCA: 7.7 ----- Left ICA: 11.6 ----- Left ECA: 0.0 VERTEBRALS (direction of flow): Right Vertebral: unable to visualize Left Vertebral: Antegrade Rhythm: Arrhythmia Moderate to severe plaque right bifurcation. Mild plaque left bifurcation. Increased velocities right ICA IMPRESSION: Bilateral plaque formation. We could not demonstrate arterial flow in the right vertebral artery. The re is antegrade flow in the left vertebral artery. There is elevated velocity in plaque formation at corresponds to 50-70% stenosis in the right interna l carotid artery. There is close to 50% stenosis in the left internal carotid artery. Criteria for Assigning % of Stenosis / Diameter reduction (Estimation based on the indirect measurements of the internal carotid artery velocities (ICA PSV). 1. Normal (no stenosis)=ICA PSV < 125 cm/s: ratio < 2.0: ICA EDV<40 cm/s. 2. Less than 50% stenosis=ICA PSV < 125 cm/s: ratio < 2.0: ICA EDV<40 cm/s. 3. 50 to 69% stenosis=ICA PSV of 125 to 230 cm/s: ration 2.0 ? 4.0: ICA EDV 40-100 cm/s. 4. Greater than 70% stenosis to near occlusion= ICA PSV > 230 cm/s: ratio > 4.0: ICA EDV > 100 cm/s. 5. Near occlusion= ICA PSV velocities may be low or undetectable: variable ratio and ICA EDV. 6. Total occlusion=unable to detect flow.
[2020-09-27] MEDS: lisinopriL 5 MG TAB PO SCH (21:03)
[2020-09-27] MEDS: CIPROFLOXACIN HCL 250 MG TAB PO SCH (21:05)
[2020-09-28 06:53] LABS: Anisocytosis Slight; HCT 29.8 % (34.0-46.0); HGB 9.6 gm/dL (11.4-16.0); Hypochromasia Slight; MCH 31.3 pg (25.0-35.0); MCHC 32.2 g/dL (31.0-37.0); MCV 97.3 fL (80.0-100.0); Macrocytosis Slight; Platelet Count 369 k/uL (150-450); RBC 3.07 m/uL (3.80-5.40); RDW 17.7 % (11.5-15.5); WBC 9.4 k/uL (3.8-10.6)
[2020-09-28] MEDS: DILTIAZEM ORAL 30 MG TAB PO SCH ×2 (08:17→20:16)
[2020-09-28] MEDS: CIPROFLOXACIN HCL 250 MG TAB PO SCH ×2 (08:17→20:16)
[2020-09-28] MEDS: FAMOTIDINE 20 MG TAB PO SCH (08:29)
[2020-09-28] MEDS: METOPROLOL TARTRATE 25 MG TAB PO SCH ×2 (08:29→20:21)
[2020-09-28] MEDS ORDERED: PEG 3350-NA SULF,BICARB,CL/KCL 4,000 ML BOTTLE PO ONE (09:00)
[2020-09-28 12:58] LABS: African American GFR (CKD) 52.6 (60.0-200.0); Anion Gap 9.9 mmol/L (4.00-12.00); BUN/Creat Ratio 17.27 Ratio (12.00-20.00); Calcium 8.8 mg/dL (8.7-10.3); Carbon Dioxide 19.1 mmol/L (21.6-31.8); Non-African American GFR(CKD) 45.4 (60.0-200.0); Potassium 3.9 mmol/L (3.5-5.5)
--- NOTE | 2020-09-28 15:26 | P.PN ---
Subjective Progress Note Date: 09/28/20 CHIEF COMPLAINT: Gastrointestinal bleed HISTORY OF PRESENT ILLNESS: The patient is a 85-year-old female with dementia who presents with GI bleed. No new issues. She is tolerating clear liquid diet. No reports of abdominal pain or cramping. Patient denies any blood in stools today. ROS: No reports of nausea and vomiting. No fevers or chills. PHYSICAL EXAM: VITAL SIGNS: Reviewed CONSTITUTIONAL: Well developed and in no acute distress. EYES: Conjuctivae without sclera icterus. Extraocular movements grossly intact. HEAD, EARS, NOSE, THROAT: Moist buccal mucosa. Head is atraumatic, normoceph alic. Hears conversational speech. No nasal drainage. NECK: Supple. No thyroidomegaly. RESPIRATORY: Non-labored respirations and equal bilateral excursions. CARDIOVASCULAR: Palpable 2+ radial pulses. ABDOMEN: No peritonitis MUSCULOSKELETAL: No gross deformity of the lower extremities noted. No clubbing. No cyanosis. SKIN: Good skin turgor. Well perfused. NEUROLOGIC: Cranial nerves II through XII grossly intact. No focal or lateralizing signs. PSYCH: Alert and oriented to person. CLINICAL LABS: Hemoglobin of 8.9-9.2, now up to 9.6 ASSESSMENT: 1. Gastrointestinal bleed PLAN: 1. Recommend colonoscopy 2. Clear liquid diet 3. Start bowel prep. Objective - Vital Signs Vital signs: Vital Signs Temp 96.9 F L 09/28/20 14:00 Pulse 61 09/28/20 14:00 Resp 16 09/28/20 14:00 BP 157/66 09/28/20 14:00 Pulse Ox 96 09/28/20 14:00 Intake & Output 09/27/20 09/28/20 09/28/20 18:59 06:59 18:59 Intake Total 2150 Balance 2150 Intake: Oral 2150 Other: Voiding Method Bedpan Bedside Commode Bedside Commode Diaper Diaper Diaper Incontinent Incontinent Incontinent # Voids 1 2 2 # Bowel Movements 2 - Labs CBC & Chem 7: 09/28/20 06:33 09/28/20 06:33 Labs: Abnormal Lab Results - Last 24 Hours (Table) 09/28/20 09/28/20 Range/Units 06:33 06:33 RBC 3.07 L (3.80-5.40) m/uL Hgb 9.6 L (11.4-16.0) gm/dL Hct 29.8 L (34.0-46.0) % RDW 17.7 H (11.5-15.5) % Carbon Dioxide 19.1 L (21.6-31.8) mmol/L Est GFR (CKD-EPI)AfAm 52.6 L (60.0-200.0) Est GFR (CKD-EPI)NonAf 45.4 L (60.0-200.0) Assessment and Plan (1) Gastrointestinal hemorrhage Current Visit: Yes Status: Acute Code(s): K92.2 - GASTROINTESTINAL HEMORRHAGE, UNSPECIFIED SNOMED Code(s): 10809985
[2020-09-28] MEDS: lisinopriL 5 MG TAB PO SCH (20:20)
--- NOTE | 2020-09-28 23:17 | P.PN ---
Subjective Progress Note Date: 09/27/20 The patient is here essentially for altered mental status and GI bleed. 09/27/2020 Patient is currently lying in bed comfortably. Also mental status with mild cognitive impairment. Carotid duplex was ordered and neurology has seen the patient. Otherwise patient is being continued on clear liquid diet. General surgery is planning for colonoscopy due to GI bleed. Patient did have bowel meant today. No complaints of dark stools or blood in the stool. No fever no chills. No chest pain or shortness of breath. Laboratory data showed hemoglobin 9.2 and platelets 330 BUN 23 and creatinine 1.3 Current medications reviewed. Objective - Vital Signs Vital signs: Vital Signs Temp 98.1 F 09/27/20 07:35 Pulse 85 09/27/20 07:35 Resp 18 09/27/20 07:35 BP 145/81 09/27/20 07:35 Pulse Ox 97 09/27/20 07:35 Intake & Output 09/26/20 09/27/20 09/27/20 18:59 06:59 18:59 Intake Total 1000 1100 Balance 1000 1100 Intake: Oral 1000 1100 Other: Voiding Method Bedpan Bedpan Diaper Diaper Incontinent Incontinent # Voids 1 1 1 # Bowel Movements 2 2 - Exam - Constitutional General appearance: Present: average body habitus - EENT Eyes: Absent: abnormal pupil - Neck Neck: Absent: lymphadenopathy - Respiratory Respiratory: bilateral: diminished - Cardiovascular Rhythm: regular Heart sounds: normal: S1, S2 Abnormal Heart Sounds: Absent: S3 Gallop - Gastrointestinal General gastrointestinal: Present: soft. Absent: tenderness - Labs CBC & Chem 7: 09/28/20 06:33 09/28/20 06:33 Labs: Abnormal Lab Results - Last 24 Hours (Table) 09/26/20 09/27/20 09/27/20 Range/Units 17:22 05:40 05:40 RBC 2.86 L (3.80-5.40) m/uL Hgb 9.2 L (11.4-16.0) gm/dL Hct 27.4 L (34.0-46.0) % RDW 17.8 H (11.5-15.5) % Est GFR (CKD-EPI)AfAm 43.0 L (60.0-200.0) Est GFR (CKD-EPI)NonAf 37.1 L (60.0-200.0) POC Glucose (mg/dL) 206 H (75-99) mg/dL Calcium 8.6 L (8.7-10.3) mg/dL Total Protein 5.3 L (6.2-8.2) g/dL Albumin 3.30 L (3.80-4.90) g/dL Assessment and Plan Assessment: (1) Atrial fibrillation with RVR. Eliquis is on hold due to lower GI bleed. HR controlled. Current Visit: No Status: Acute Code(s): I48.91 - UNSPECIFIED ATRIAL FIBRILLATION SNOMED Code(s): 165449347584555 (2) High risk for readmission Current Visit: No Status: Acute Code(s): Z91.89 - [facility] PERSONAL RISK FACTORS, NOT ELSEWHERE CLASSIFIED SNOMED Code(s): 804779372 (3) Neurologic gait dysfunction Current Visit: No Status: Acute Code(s): R26.9 - UNSPECIFIED ABNORMALITIES OF GAIT AND MOBILITY SNOMED Code(s): 56127191 (4) History of hypertension Current Visit: No Status: Chronic Code(s): Z86.79 - PERSONAL HISTORY OF OTHER DISEASES OF THE CIRCULATORY SYSTEM SNOMED Code(s): 850532133 (5) Gastrointestinal hemorrhage Current Visit: Yes Status: Acute Code(s): K92.2 - GASTROINTESTINAL HEMORRHAGE, UNSPECIFIED SNOMED Code(s): 68740025 6. Mild cognitive impairment. Delirium. Plan: Patient will be continued on clear liquid diet. And monitor H&H. General surgery is following and is planning for colonoscopy. Anticoagulation is on hold. Time with Patient: Greater than 30
--- NOTE | 2020-09-28 23:18 | P.PN ---
Subjective Progress Note Date: 09/28/20 The patient is here essentially for altered mental status and GI bleed. 09/27/2020 Patient is currently lying in bed comfortably. Also mental status with mild cognitive impairment. Carotid duplex was ordered and neurology has seen the patient. Otherwise patient is being continued on clear liquid diet. General surgery is planning for colonoscopy due to GI bleed. Patient did have bowel meant today. No complaints of dark stools or blood in the stool. No fever no chills. No chest pain or shortness of breath. Laboratory data showed hemoglobin 9.2 and platelets 330 BUN 23 and creatinine 1.3 09/28/2020 Patient is currently resting in the bed comfortably. Tolerating liquid diet. No complaints of abdominal pain. No blood in the stool today. No nausea vomiting or diarrhea. No complaints of chest pain or shortness breath. Patient is afebrile. Patient does have underlying mild cognitive impairment. No agitation noted. General surgery is planning for colonoscopy tomorrow. Hb 9.6 today. Current medications reviewed. Objective - Vital Signs Vital signs: Vital Signs Temp 96.9 F L 09/28/20 14:00 Pulse 61 09/28/20 14:00 Resp 16 09/28/20 14:00 BP 157/66 09/28/20 14:00 Pulse Ox 96 09/28/20 14:00 Intake & Output 09/27/20 09/28/20 09/28/20 18:59 06:59 18:59 Intake Total 2150 Balance 2150 Intake: Oral 2150 Other: Voiding Method Bedpan Bedside Commode Bedside Commode Diaper Diaper Diaper Incontinent Incontinent Incontinent # Voids 1 2 2 # Bowel Movements 2 - Exam - Constitutional General appearance: Present: average body habitus - EENT Eyes: Absent: abnormal pupil - Neck Neck: Absent: lymphadenopathy - Respiratory Respiratory: bilateral: diminished - Cardiovascular Rhythm: regular Heart sounds: normal: S1, S2 Abnormal Heart Sounds: Absent: S3 Gallop - Gastrointestinal General gastrointestinal: Present: soft. Absent: tenderness - Labs CBC & Chem 7: 09/28/20 06:33 09/28/20 06:33 Labs: Abnormal Lab Results - Last 24 Hours (Table) 09/28/20 09/28/20 Range/Units 06:33 06:33 RBC 3.07 L (3.80-5.40) m/uL Hgb 9.6 L (11.4-16.0) gm/dL Hct 29.8 L (34.0-46.0) % RDW 17.7 H (11.5-15.5) % Carbon Dioxide 19.1 L (21.6-31.8) mmol/L Est GFR (CKD-EPI)AfAm 52.6 L (60.0-200.0) Est GFR (CKD-EPI)NonAf 45.4 L (60.0-200.0) Assessment and Plan Assessment: (1) Atrial fibrillation with RVR. Eliquis is on hold due to lower GI bleed. HR controlled. Current Visit: No Status: Acute Code(s): I48.91 - UNSPECIFIED ATRIAL FIBRILLATION SNOMED Code(s): 487222289528010 (2) High risk for readmission Current Visit: No Status: Acute Code(s): Z91.89 - [facility] PERSONAL RISK FACTORS, NOT ELSEWHERE CLASSIFIED SNOMED Code(s): 155047417 (3) Neurologic gait dysfunction Current Visit: No Status: Acute Code(s): R26.9 - UNSPECIFIED ABNORMALITIES OF GAIT AND MOBILITY SNOMED Code(s): 10834060 (4) History of hypertension Current Visit: No Status: Chronic Code(s): Z86.79 - PERSONAL HISTORY OF OTHER DISEASES OF THE CIRCULATORY SYSTEM SNOMED Code(s): 145061015 (5) Gastrointestinal hemorrhage Current Visit: Yes Status: Acute Code(s): K92.2 - GASTROINTESTINAL HEMORRHAGE, UNSPECIFIED SNOMED Code(s): 80101767 6. Mild cognitive impairment. Delirium. Plan: Patient will be continued on clear liquid diet. And monitor H&H. General surgery is following and is planning for colonoscopy. Anticoagulation is on hold.
[2020-09-29 07:54] LABS: Anisocytosis Slight; HCT 28.2 % (34.0-46.0); HGB 9.2 gm/dL (11.4-16.0); Hypochromasia Slight; MCHC 32.6 g/dL (31.0-37.0); MCV 98.1 fL (80.0-100.0); Macrocytosis Slight; Mean Platelet Volume 7.2; Platelet Count 340 k/uL (150-450); RBC 2.87 m/uL (3.80-5.40); RDW 17.7 % (11.5-15.5); WBC 7.8 k/uL (3.8-10.6)
--- NOTE | 2020-09-29 08:23 | P.PN ---
Subjective Principal diagnosis: The patient is here essentially for altered mental status and GI bleed. Appreciate multiple consultants input. Appreciate neurology input. The patient seems much more oriented today than on admission. However, I'm not sure she is tolerating her bowel prep. Await possible colonoscopy today. Objective - Vital Signs Vital signs: Vital Signs Temp 98.0 F 09/29/20 01:30 Pulse 69 09/29/20 01:30 Resp 16 09/29/20 01:30 BP 189/63 09/29/20 02:45 Pulse Ox 98 09/29/20 01:30 Intake & Output 09/28/20 09/29/20 09/29/20 18:59 06:59 18:59 Intake Total 600 Balance 600 Intake: Oral 600 Other: Voiding Method Bedside Commode Diaper Incontinent # Voids 2 # Bowel Movements 2 - Constitutional General appearance: Present: thin - EENT Eyes: Absent: abnormal pupil - Neck Neck: Absent: lymphadenopathy - Respiratory Respiratory: bilateral: CTA - Cardiovascular Rhythm: irregularly irregular Heart sounds: normal: S1, S2 Abnormal Heart Sounds: Absent: S3 Gallop - Gastrointestinal General gastrointestinal: Present: soft. Absent: tenderness - Psychiatric Psychiatric: Present: A&O x's 3 - Labs CBC & Chem 7: 09/29/20 07:03 09/28/20 06:33 Labs: Abnormal Lab Results - Last 24 Hours (Table) 09/28/20 09/29/20 Range/Units 06:33 07:03 RBC 2.87 L (3.80-5.40) m/uL Hgb 9.2 L (11.4-16.0) gm/dL Hct 28.2 L (34.0-46.0) % RDW 17.7 H (11.5-15.5) % Carbon Dioxide 19.1 L (21.6-31.8) mmol/L Est GFR (CKD-EPI)AfAm 52.6 L (60.0-200.0) Est GFR (CKD-EPI)NonAf 45.4 L (60.0-200.0) Assessment and Plan (1) Atrial fibrillation with RVR Current Visit: No Status: Acute Code(s): I48.91 - UNSPECIFIED ATRIAL FIBRILLATION SNOMED Code(s): 562092036710189 (2) High risk for readmission Current Visit: No Status: Acute Code(s): Z91.89 - OTH PERSONAL RISK FACTORS, NOT ELSEWHERE CLASSIFIED SNOMED Code(s): 098593832 (3) Neurologic gait dysfunction Current Visit: No Status: Acute Code(s): R26.9 - UNSPECIFIED ABNORMALITIES OF GAIT AND MOBILITY SNOMED Code(s): 27214996 (4) History of hypertension Current Visit: No Status: Chronic Code(s): Z86.79 - PERSONAL HISTORY OF OTHER DISEASES OF THE CIRCULATORY SYSTEM SNOMED Code(s): 201553257 (5) Gastrointestinal hemorrhage Current Visit: Yes Status: Acute Code(s): K92.2 - GASTROINTESTINAL HEMORRHAG E, UNSPECIFIED SNOMED Code(s): 19759203 Plan: Check CBC and CMP in a.m. I await possibility of colonoscopy today. See orders otherwise.
[2020-09-29] MEDS: LACTATED RINGERS 1,000 ML IV SCH (08:45)
[2020-09-29] MEDS: CIPROFLOXACIN HCL 250 MG TAB PO SCH ×2 (08:48→22:22)
[2020-09-29] MEDS: DILTIAZEM ORAL 30 MG TAB PO SCH ×2 (08:48→22:21)
[2020-09-29] MEDS: FAMOTIDINE 20 MG TAB PO SCH (08:48)
[2020-09-29] MEDS: METOPROLOL TARTRATE 25 MG TAB PO SCH ×2 (08:48→22:21)
[2020-09-29] MEDS ORDERED: PROPOFOL 10 MG/ML 20 ML VIAL IV ONE (11:04)
[2020-09-29] MEDS ORDERED: SODIUM CHLORIDE 0.9% 500 ML 500 ML IV ONE (11:09)
--- NOTE | 2020-09-29 11:21 | P.OP ---
Date of Procedure: 09/29/20 Preoperative Diagnosis: GI bleed Postoperative Diagnosis: Diverticulosis No evidence of GI bleed Procedure(s) Performed: Colonoscopy Anesthesia: MAC Surgeon: Carroll Cespedes Pathology: none sent Condition: stable Disposition: PACU Description of Procedure: The patient's placed on the endoscopy table in the lateral position. She received IV sedation. Digital rectal exam performed which revealed no abnormalities. Flexible colonoscope is then placed patient anus passed throughout the entire colon. The ileocecal valve was visualized. The cecum, ascending and transverse colon appeared normal. In the descending; there was moderate diverticular changes. There is no evidence of any GI bleed. The scope was then brought back the rectum this appeared normal. Scope was withdrawn for patient. No evidence of GI bleed was seen. It is presumed the patient's rectal bleeding is due to diverticulosis
[2020-09-29 11:44] LABS: African American GFR (CKD) 59.1 (60.0-200.0); Anion Gap 10.1 mmol/L (4.00-12.00); Calcium 8.6 mg/dL (8.7-10.3); Carbon Dioxide 18.9 mmol/L (21.6-31.8); Potassium 3.6 mmol/L (3.5-5.5)
[2020-09-29] MEDS: lisinopriL 5 MG TAB PO SCH (22:21)
[2020-09-30] MEDS: LACTATED RINGERS 1,000 ML IV SCH
[2020-09-30 06:22] LABS: Anisocytosis Slight; HCT 28.6 % (34.0-46.0); HGB 9.1 gm/dL (11.4-16.0); Hypochromasia Slight; MCH 30.9 pg (25.0-35.0); MCHC 31.8 g/dL (31.0-37.0); MCV 97.1 fL (80.0-100.0); Macrocytosis Slight; Mean Platelet Volume 7.4; Platelet Count 316 k/uL (150-450); RBC 2.95 m/uL (3.80-5.40); RDW 17.4 % (11.5-15.5); WBC 8.7 k/uL (3.8-10.6)
[2020-09-30 07:40] VITALS: BP 174/61; PULSE 63; RESP 16; TEMP 97.8
--- NOTE | 2020-09-30 08:35 | P.DS ---
Providers Date of admission: 09/25/20 03:28 Attending physician: Orion Bose Consults: 09/25/20 08:29 Consult Physician Routine Consulting Provider: Carroll Cespedes Consult Reason/Comments: GI bleed Do you want consulting provider notified?: Yes 09/26/20 08:31 Consult Physician Routine Consulting Provider: Suni Holbrook Consult Reason/Comments: Altered mental status;delirium Do you want consulting provider notified?: Yes Primary care physician: Orion Bose - Discharge Diagnosis(es) (1) Atrial fibrillation with RVR Current Visit: No Status: Acute (2) High risk for readmission Current Visit: No Status: Acute (3) Neurologic gait dysfunction Current Visit: No Status: Acute (4) History of hypertension Current Visit: No Status: Chronic (5) Gastrointestinal hemorrhage Current Visit: Yes Status: Acute Hospital Course: This discharge summary 85-year-old white female with known history of atrial fibrillation came in with altered mental status. The patient had acute delirium and most likely element of dehydration and metabolic encephalopathy. She also had element of GI bleed. Hemoglobin was stable but colonoscopy did not reveal any acute issue. She is cleared from consultants standpoint and will be discharged back to [facility] today. Patient Condition at Discharge: Fair Plan - Discharge Summary New Discharge Prescriptions: Continue Potassium Chloride [K-Tab ER] 10 meq PO DAILY hydrALAZINE HCL [Apresoline] 50 mg PO TID Magnesium Oxide 400 mg PO DAILY Famotidine [Pepcid] 20 mg PO DAILY #30 tab Apixaban [Eliquis] 2.5 mg PO BID Ascorbic Acid [Vitamin C] 500 mg PO DAILY Cholecalciferol [Vitamin D3] 800 unit PO DAILY lisinopriL [Zestril] 2.5 mg PO HS Docusate [Colace] 200 mg PO DAILY Furosemide [Lasix] 40 mg PO BID@0900,1600 tab Metoprolol Tartrate [Lopressor] 75 mg PO BID #60 tab allopurinoL [Zyloprim] 150 mg PO DAILY Diltiazem HCl [Cardizem] 90 mg PO BID Acetaminophen [Tylenol] 650 mg PO Q4H PRN PRN Reason: Pain Or Fever > 100.5 Vitamin E 400 unit PO DAILY Polyethylene Glycol 3350 [Miralax] 17 gm PO DAILY Multivitamins, Thera [Multivitamin (formulary)] 1 tab PO DAILY hydrALAZINE HCL 25 mg PO TID Lovastatin [Altoprev] 20 mg PO HS Aspirin 81 mg PO DAILY@0900 Megestrol [Megace] 400 mg PO DAILY #30 ml Cyanocobalamin [Vitamin B-12] 500 mcg PO DAILY tab Ciprofloxacin HCl [Cipro] 500 mg PO Q12HR #14 tablet traMADol HCl [Ultram] 50 mg PO QID #120 tab Discontinued Amoxicillin/Potassium Clav [Augmentin 500-125 Tablet] 1 tab PO Q12HR 1 Days #14 tab Discharge Medication List Potassium Chloride [K-Tab ER] 10 meq PO DAILY 06/23/14 [History] hydrALAZINE HCL [Apresoline] 50 mg PO TID 12/08/16 [History] Magnesium Oxide 400 mg PO DAILY 02/17/17 [History] Famotidine [Pepcid] 20 mg PO DAILY #30 tab 11/23/17 [Rx] Apixaban [Eliquis] 2.5 mg PO BID 01/29/18 [History] Ascorbic Acid [Vitamin C] 500 mg PO DAILY 01/29/18 [History] Cholecalciferol [Vitamin D3] 800 unit PO DAILY 07/21/20 [History] Docusate [Colace] 200 mg PO DAILY 07/21/20 [History] lisinopriL [Zestril] 2.5 mg PO HS 07/21/20 [History] Furosemide [Lasix] 40 mg PO BID@0900,1600 tab 07/30/20 [Rx] Metoprolol Tartrate [Lopressor] 75 mg PO BID #60 tab 07/30/20 [Rx] Acetaminophen [Tylenol] 650 mg PO Q4H PRN 09/06/20 [History] Aspirin 81 mg PO DAILY@0900 09/06/20 [History] Diltiazem HCl [Cardizem] 90 mg PO BID 09/06/20 [History] Lovastatin [Altoprev] 20 mg PO HS 09/06/20 [History] Multivitamins, Thera [Multivitamin (formulary)] 1 tab PO DAILY 09/06/20 [History] Polyethylene Glycol 3350 [Miralax] 17 gm PO DAILY 09/06/20 [History] Vitamin E 400 unit PO DAILY 09/06/20 [History] allopurinoL [Zyloprim] 150 mg PO DAILY 09/06/20 [History] hydrALAZINE HCL 25 mg PO TID 09/06/20 [History] Ciprofloxacin HCl [Cipro] 500 mg PO Q12HR #14 tablet 09/23/20 [Rx] Cyanocobalamin [Vitamin B-12] 500 mcg PO DAILY tab 09/23/20 [Rx] Megestrol [Megace] 400 mg PO DAILY #30 ml 09/23/20 [Rx] traMADol HCl [Ultram] 50 mg PO QID #120 tab 09/30/20 [Rx] Follow up Appointment(s)/Referral(s): Orion Bose MD [Primary Care Provider] - 2 Weeks Discharge Disposition: TRANSFER TO SNF/ECF
[2020-09-30] MEDS: CIPROFLOXACIN HCL 250 MG TAB PO SCH (09:05)
[2020-09-30] MEDS: FAMOTIDINE 20 MG TAB PO SCH (09:06)
[2020-09-30] MEDS: METOPROLOL TARTRATE 25 MG TAB PO SCH (09:06)
[2020-09-30] MEDS: DILTIAZEM ORAL 30 MG TAB PO SCH (09:06)
[2020-09-30 10:11] LABS: African American GFR (CKD) 59.1 (60.0-200.0); Albumin 3.2 g/dL (3.80-4.90); Albumin/Globulin Ratio 1.68 (1.60-3.17); Anion Gap 10.2 mmol/L (4.00-12.00); Calcium 8.5 mg/dL (8.7-10.3); Carbon Dioxide 18.8 mmol/L (21.6-31.8); Globulin 1.9 g/dL (1.6-3.3); Total Bilirubin 0.3 mg/dL (0.3-1.2); Total Protein 5.1 g/dL (6.2-8.2)
--- NOTE | 2020-09-30 11:26 | P.PN ---
Subjective Progress Note Date: 09/30/20 CHIEF COMPLAINT: Blood in stool HISTORY OF PRESENT ILLNESS: Patient is being followed for her GI bleed. Patient is status post colonoscopy which did reveal diverticulosis and no active bleeding. Patient per nursing staff has had no further bowel movements with bleeding. Hemoglobin stable at 9.1 WBC 8.7. Patient afebrile. Tolerating diet. PHYSICAL EXAM: VITAL SIGNS: Reviewed. GENERAL: Well-developed in no acute distress. HEENT: No sclera icterus. Extraocular movements grossly intact. Moist buccal mucosa. Head is atraumatic, normocephalic. ABDOMEN: Soft. Nondistended. Nontender. NEUROLOGIC: Alert and oriented 2. Cranial nerves II through XII grossly intact. ASSESSMENT: 1. Acute GI bleed possibly due to a diverticular bleed. Status post colonoscopy with diverticulosis and no active bleeding. Patient's symptoms have now resolved. Hemoglobin stable. 2. Acute blood loss anemia 3. History of chronic anemia PLAN: -Patient is stable for discharge from surgical standpoint Physician Photographic Equipment Technician note has been reviewed by physician. Signing provider agrees with the documented findings, assessment, and plan of care. Objective - Vital Signs Vital signs: Vital Signs Temp 97.8 F 09/30/20 06:42 Pulse 63 09/30/20 06:42 Resp 16 09/30/20 06:42 BP 174/61 09/30/20 06:42 Pulse Ox 96 09/30/20 06:42 Intake & Output 09/29/20 09/30/20 09/30/20 18:59 06:59 18:59 Intake Total 100 150 180 Balance 100 150 180 Weight 81.647 kg Intake: IV 100 Oral 150 180 Other: # Voids 2 - Labs CBC & Chem 7: 09/30/20 05:48 09/30/20 05:48 Labs: Abnormal Lab Results - Last 24 Hours (Table) 09/29/20 09/30/20 09/30/20 Range/Units 07:03 05:48 05:48 RBC 2.95 L (3.80-5.40) m/uL Hgb 9.1 L (11.4-16.0) gm/dL Hct 28.6 L (34.0-46.0) % RDW 17.4 H (11.5-15.5) % Chloride 110 H 111 H (96-109) mmol/L Carbon Dioxide 18.9 L 18.8 L (21.6-31.8) mmol/L Est GFR (CKD-EPI)AfAm 59.1 L 59.1 L (60.0-200.0) Est GFR (CKD-EPI)NonAf 51.0 L 51.0 L (60.0-200.0) BUN/Creatinine Ratio 22.00 H (12.00-20.00) Ratio Glucose 128 H (70-110) mg/dL Calcium 8.6 L 8.5 L (8.7-10.3) mg/dL Total Protein 5.1 L (6.2-8.2) g/dL Albumin 3.20 L (3.80-4.90) g/dL
== END 2020-09-30 13:45 | DRG 377 ==
LOC: EC 02:06 → 5NMEDONC 03:28
PROVIDERS: ADMIT Family Medicine; ATTEND Family Medicine
PROC: 30233N1 Transfusion of Nonautologous Red Blood Cells into Peripheral Vein, Percutaneous Approach (ICD-10-PCS; 2020-09-29)
PROC: 0DJD8ZZ Inspection of Lower Intestinal Tract, Via Natural or Artificial Opening Endoscopic (ICD-10-PCS; principal; 2020-09-29 13:30)
DX: K57.31 Diverticulosis of large intestine without perforation or abscess with bleeding (principal); G93.41 Metabolic encephalopathy; D62 Acute posthemorrhagic anemia; N17.9 Acute kidney failure, unspecified; F05 Delirium due to known physiological condition; E11.22 Type 2 diabetes mellitus with diabetic chronic kidney disease; F03.90 Unspecified dementia, unspecified severity, without behavioral disturbance, psychotic disturbance, mood disturbance, and anxiety; I48.0 Paroxysmal atrial fibrillation; E86.0 Dehydration; N18.9 Chronic kidney disease, unspecified; M10.9 Gout, unspecified; E78.5 Hyperlipidemia, unspecified; I08.0 Rheumatic disorders of both mitral and aortic valves; I12.9 Hypertensive chronic kidney disease with stage 1 through stage 4 chronic kidney disease, or unspecified chronic kidney disease; I25.10 Atherosclerotic heart disease of native coronary artery without angina pectoris; K21.9 Gastro-esophageal reflux disease without esophagitis; M19.90 Unspecified osteoarthritis, unspecified site; R26.9 Unspecified abnormalities of gait and mobility; R09.89 Other specified symptoms and signs involving the circulatory and respiratory systems; Z20.828 Contact with and (suspected) exposure to other viral communicable diseases; R32 Unspecified urinary incontinence; Z79.01 Long term (current) use of anticoagulants; Z79.82 Long term (current) use of aspirin; Z79.899 Other long term (current) drug therapy; Z79.891 Long term (current) use of opiate analgesic; Z79.84 Long term (current) use of oral hypoglycemic drugs; Z88.6 Allergy status to analgesic agent; Z88.1 Allergy status to other antibiotic agents; Z85.828 Personal history of other malignant neoplasm of skin; Z87.891 Personal history of nicotine dependence; Z95.5 Presence of coronary angioplasty implant and graft; Z96.649 Presence of unspecified artificial hip joint; Z98.49 Cataract extraction status, unspecified eye; Z95.2 Presence of prosthetic heart valve; Z98.890 Other specified postprocedural states; Z87.440 Personal history of urinary (tract) infections; Z82.49 Family history of ischemic heart disease and other diseases of the circulatory system; Z83.3 Family history of diabetes mellitus; Z82.0 Family history of epilepsy and other diseases of the nervous system; Z82.3 Family history of stroke
CPT/HCPCS: 36415; 45378; 80048; 80053; 81003; 82140; 82550; 83605; 83690; 83735; 84484; 85025; 85027; 85610; 85730; 86850; 86900; 86901; 86920; 87635; 93880; 96361; 96374; 96375; 99285

== ENCOUNTER 2020-10-07 23:54 | Emergency (ER) | payer MEDICARE ==
[2020-10-08] VITALS: RESP 18
--- NOTE | 2020-10-08 00:58 | CT ---
EXAM: CT Head Without Intravenous Contrast CLINICAL HISTORY: Injury. Headache. Neck pain. TECHNIQUE: Axial computed tomography images of the head/brain without intravenous contrast. CTDI is 27.685 mGy and DLP is 682.65 mGy-cm. This CT exam was performed using one or more of the following dose reduction techniques: automated exposure control, adjustment of the mA and/or kV according to patient size, and/or use of iterative reconstruction technique. COMPARISON: 09/15/2020. FINDINGS: Brain: No abnormal extra-axial collection. No hemorrhage. Ventricles: There is prominence of the ventricular system, cortical sulci, basilar cisterns, compatible with age related atrophy. Bones/joints: Calvarium is within normal limits. No acute fracture. Soft tissues: A 7.2 x 1.6 cm high left right occipital scalp hematoma is noted. Additionally, there is a smaller 3.2 x 0.7 cm high right occipital scalp hematoma. Sinuses: Visualized sinuses are unremarkable. Mastoid air cells: Mastoid air cells are well pneumatized IMPRESSION: 1. Bilateral scalp hematomas in the prone occipital regions. 2. Age-related changes. 3. No acute intracranial pathology appeared 4. If there is concern for etiology such as early acute lacunar infarcts, magnetic resonance imaging of the brain with diffusion-weighted sequences should be performed. EXAM: CT Cervical Spine Without Intravenous Contrast CLINICAL HISTORY: Injury. Headache. Neck pain. TECHNIQUE: Axial computed tomography images of the cervical spine without intravenous contrast. CTDI is 27.685 mGy and DLP is 682.65 mGy-cm. This CT exam was performed using one or more of the following dose reduction techniques: automated exposure control, adjustment of the mA and/or kV according to patient size, and/or use of iterative reconstruction technique. COMPARISON: No previous studies. FINDINGS: Vertebrae: There is straightening and reversal of the curvature of the cervical spine suggestive of muscle spasm. There is grade 1 anterolisthesis of C7 upon T1 vertebral body. Visualized thoracic vertebral bodies are maintained in height. Levoscoliosis. There is a normal relationship of C1 and C2. No acute fracture. Discs/spinal canal/neural foramina: Moderate to severe degenerative disc disease of the cervical spine. Transaxial images of the cervical spine reveals multilevel disc osteophyte complexes and posterior facet hypertrophy No spinal canal stenosis. Soft tissues: Unremarkable. Lung apices: Lung apices are unremarkable. Other findings: Spinous processes are unremarkable. IMPRESSION: 1. Advanced degenerative disc disease of the cervical spine appeared 2. No acute injury to the cervical spine is detected.
[2020-10-08] MEDS ORDERED: Acetaminophen-Codeine 300-30mg TAB PO STA (01:29)
--- NOTE | 2020-10-08 01:38 | ED ---
General Adult HPI - General Chief complaint: Fall Stated complaint: Fall Time Seen by Provider: 10/08/20 00:05 Source: EMS, RN notes reviewed, old records reviewed Mode of arrival: EMS Limitations: altered mental status - History of Present Illness Initial comments: 85-year-old female patient from assisted living facility ED for a fall. Patient attempted to get up although she is nonambulatory. Patient does have some dementia. Patient fell hitting the back of her head. She is anticoagulated L class. She is denying any other complaints. Patient does have a pressure ulcer on the back of her right heel which is causing her some discomfort. She reports some mild headache near the hematoma. No known loss of consciousness. Systemic: Pt denies fatigue, fever/chills, rash. Pt denies weakness, night sweats, weight loss. Neuro: Pt denies visual disturbances, syncope or pre-syncope. HEENT: Pt denies ocular discharge or irritation, otalgia, rhinorrhea, pharyngitis or notable lymphadenopathy. Cardiopulmonary: Pt denies chest pain, SOB, heart palpitations, dyspnea on exertion. Abdominal/GI: Pt denies abdominal pain, n/v/d. : Pt denies dysuria, burning w/ urination, frequency/urgency. Denies new onset urinary or bowel incontinence. MSK: Pt denies myalgia, loss of strength or function in extremities. Neuro: Pt denies new onset weakness, paresthesias. - Related Data Home Medications Medication Instructions Recorded Confirmed Potassium Chloride [K-Tab ER] 10 meq PO DAILY 06/23/14 09/25/20 hydrALAZINE HCL [Apresoline] 50 mg PO TID 12/08/16 09/25/20 Magnesium Oxide 400 mg PO DAILY 02/17/17 09/25/20 Apixaban [Eliquis] 2.5 mg PO BID 01/29/18 09/25/20 Ascorbic Acid [Vitamin C] 500 mg PO DAILY 01/29/18 09/25/20 Cholecalciferol [Vitamin D3] 800 unit PO DAILY 07/21/20 09/25/20 Docusate [Colace] 200 mg PO DAILY 07/21/20 09/25/20 lisinopriL [Zestril] 2.5 mg PO HS 07/21/20 09/25/20 Acetaminophen [Tylenol] 650 mg PO Q4H PRN 09/06/20 09/25/20 Aspirin 81 mg PO DAILY@0900 09/06/20 09/25/20 Diltiazem HCl [Cardizem] 90 mg PO BID 09/06/20 09/25/20 Lovastatin [Altoprev] 20 mg PO HS 09/06/20 09/25/20 Multivitamins, Thera [Multivitamin 1 tab PO DAILY 09/06/20 09/25/20 (formulary)] Polyethylene Glycol 3350 [Miralax] 17 gm PO DAILY 09/06/20 09/25/20 Vitamin E 400 unit PO DAILY 09/06/20 09/25/20 allopurinoL [Zyloprim] 150 mg PO DAILY 09/06/20 09/25/20 hydrALAZINE HCL 25 mg PO TID 09/06/20 09/25/20 Previous Rx's Medication Instructions Recorded Famotidine [Pepcid] 20 mg PO DAILY #30 tab 11/23/17 Furosemide [Lasix] 40 mg PO BID@0900,1600 tab 07/30/20 Metoprolol Tartrate [Lopressor] 75 mg PO BID #60 tab 07/30/20 Ciprofloxacin HCl [Cipro] 500 mg PO Q12HR #14 tablet 09/23/20 Cyanocobalamin [Vitamin B-12] 500 mcg PO DAILY tab 09/23/20 Megestrol [Megace] 400 mg PO DAILY #30 ml 09/23/20 traMADol HCl [Ultram] 50 mg PO QID #120 tab 09/30/20 Allergies Allergy/AdvReac Type Severity Reaction Status Date / Time cephalexin monohydrate Allergy Rash/Hives Verified 10/08/20 00:01 [From Keflex] rofecoxib [From Vioxx] Allergy Unknown Verified 10/08/20 00:01 doxycycline [From Vibramycin] AdvReac Nausea & Verified 10/08/20 00:01 Vomiting Review of Systems ROS Statement: Those systems with pertinent positive or pertinent negative responses have been documented in the HPI. ROS Other: All systems not noted in ROS Statement are negative. Past Medical History Past Medical History: Coronary Artery Disease (CAD), Cancer, Diabetes Mellitus, GERD/Reflux, Hyperlipidemia, Hypertension, Osteoarthritis (OA), Renal Disease Additional Past Medical History / Comment(s): USES A WALKER, LEG SWELLING, MURMUR, SINUS PROBLEMS, BENIGN POLYPS, INCONT OF URINE, PAST HX ANEMIA, "kidney function-3.5", severe aortic stenosis, patent foramen ovale. SKIN CANCER History of Any Multi-Drug Resistant Organisms: None Reported Past Surgical History: Heart Catheterization, Heart Catheterization With Stent Additional Past Surgical History / Comment(s): CATARACT SURGERY, COLONOSCOPY, bisi, TAVR 01/03/2018. "STENT IN [facility]". Past Anesthesia/Blood Transfusion Reactions: No Reported Reaction Date of Last Stent Placement:: January 03, 2018 Past Psychological History: No Psychological Hx Reported Smoking Status: Never smoker Past Alcohol Use History: None Reported Past Drug Use History: None Reported - Past Family History Mother Family Medical History: CVA/TIA, Diabetes Mellitus Father Family Medical History: Cancer, Coronary Artery Disease (CAD) Brother(s) Family Medical History: CVA/TIA, Diabetes Mellitus Sister(s) Family Medical History: Dementia Son(s) Family Medical History: No Reported History Daughter(s) Family Medical History: No Reported History General Exam - General Exam Comments Initial Comments: Constitutional: NAD, AOX3, Pt has pleasant affect. HEENT: NC/AT, trachea midline, neck supple, no lymphadenopathy. External ears appear normal, without discharge. Mucous membranes moist. Eyes PERRLA, EOM intac t. There is no scleral icterus. No pallor noted. Cardiopulmonary: RRR, no murmurs, rubs or gallops, no JVD noted. Lungs CTAB in anterior and posterior david. No peripheral edema. Abdominal exam: Abdomen soft and non-distended. Abdomen non-tender to palpation in all 4 quadrants. Bowel sounds active in LLQ. No hepatosplenomegaly. No ecchymosis Neuro: CN II-XII intact. No nuchal rigidity. No raccon eyes, no barker sign, no hemotympanum. No cervical spinal tenderness. Hematoma noted posterior scalp. MSK: Extremities palpated without any focal area of tenderness. Range of motion is intact. Limitations: altered mental status Course Vital Signs 10/07/20 23:58 Temperature 98 F Pulse Rate 64 Respiratory 18 Rate Blood Pressure 123/71 O2 Sat by Pulse 95 Oximetry Medical Decision Making - Medical Decision Making 85-year-old female patient ED for a mechanical fall. Hematoma noted on scalp. CT brain C-spine doesn't display hematoma no acute intracranial process. Degenerative disc disease no acute cervical spinal injury is noted. Patient stable to be discharged with outpatient follow-up and return precautions. Case discussed with Dr. Fraser. Disposition Clinical Impression: Fall, Hematoma Disposition: HOME SELF-CARE Condition: Stable Instructions (If sedation given, give patient instructions): Fall Prevention (ED) Additional Instructions: Follow up with PCP tomorrow. Return to ED with any worsening symptoms. Is patient prescribed a controlled substance at d/c from ED?: No Referrals: Orion Bose MD [Primary Care Provider] - 1-2 days
[2020-10-08 02:33] VITALS: BP 109/82; PULSE 70; TEMP 98.3
== END 2020-10-08 02:25 | disposition home or self-care (01) ==
LOC: EC 23:54
DX: M50.30 Other cervical disc degeneration, unspecified cervical region (principal); S00.03XA Contusion of scalp, initial encounter; I10 Essential (primary) hypertension; K21.9 Gastro-esophageal reflux disease without esophagitis; I25.10 Atherosclerotic heart disease of native coronary artery without angina pectoris; M19.90 Unspecified osteoarthritis, unspecified site; E78.5 Hyperlipidemia, unspecified; Z79.82 Long term (current) use of aspirin; Z79.899 Other long term (current) drug therapy; Z79.01 Long term (current) use of anticoagulants; Z88.1 Allergy status to other antibiotic agents; Z88.6 Allergy status to analgesic agent; Z85.828 Personal history of other malignant neoplasm of skin; W18.30XA Fall on same level, unspecified, initial encounter
CPT/HCPCS: 70450; 72125; 99284

== ENCOUNTER 2020-10-17 06:08 | Inpatient (IN) | payer MEDICARE ==
[2020-10-17] MEDS ORDERED: PANTOPRAZOLE 40 MG/10 ML VIAL IVP STA (06:16)
--- NOTE | 2020-10-17 06:38 | ED ---
GI Bleed HPI - General Chief complaint: GI Bleed Stated complaint: GI Bleed Time Seen by Provider: 10/17/20 06:15 Source: patient, EMS Mode of arrival: EMS Limitations: altered mental status - History of Present Illness Initial comments: Patient is a 85-year-old female, with history of A. fib, diabetes, hypertension, renal disease, presenting to the emergency department via EMS from [facility] with complaints of a possible GI bleed. Staff noticed bright red blood in her stool today. Patient is on Eliquis. Patient did have lab work obtained yesterday showed a hemoglobin of 6.7. Patient denies any pain at this time. She does have history of dementia, she is at her baseline. No recent fever, chills, cough. No chest pain, abdominal pain, nausea or vomiting. She is further complaints. Upon arrival to the ER, her vitals are stable. - Related Data Home Medications Medication Instructions Recorded Confirmed Potassium Chloride [K-Tab ER] 10 meq PO DAILY@1700 06/23/14 10/17/20 hydrALAZINE HCL [Apresoline] 50 mg PO TID@0600,1400,2200 12/08/16 10/17/20 Magnesium Oxide 400 mg PO DAILY@0800 02/17/17 10/17/20 Apixaban [Eliquis] 2.5 mg PO BID@0800,1700 01/29/18 10/17/20 Ascorbic Acid [Vitamin C] 500 mg PO DAILY@1700 01/29/18 10/17/20 Cholecalciferol [Vitamin D3] 800 unit PO DAILY@1700 07/21/20 10/17/20 Docusate [Colace] 200 mg PO DAILY@1700 07/21/20 10/17/20 lisinopriL [Zestril] 2.5 mg PO HS 07/21/20 10/17/20 Acetaminophen [Tylenol] 650 mg PO Q4H PRN 09/06/20 10/17/20 Aspirin 81 mg PO DAILY@0900 09/06/20 10/17/20 Diltiazem HCl [Cardizem] 90 mg PO BID@0800,1700 09/06/20 10/17/20 Lovastatin [Altoprev] 20 mg PO HS 09/06/20 10/17/20 Multivitamins, Thera [Multivitamin 1 tab PO DAILY@169909/06/20 10/17/20 (formulary)] Polyethylene Glycol 3350 [Miralax] 17 gm PO DAILY@79909/06/20 10/17/20 Vitamin E 400 unit PO DAILY@169909/06/20 10/17/20 allopurinoL [Zyloprim] 150 mg PO DAILY 09/06/20 10/17/20 hydrALAZINE HCL 25 mg PO TID@0600,1400,2200 09/06/20 10/17/20 Acetaminophen Suppository [Tylenol 650 mg RECTAL Q4H PRN 10/17/20 10/17/20 Suppository] Cyanocobalamin [Vitamin B-12] 500 mcg PO DAILY@169910/17/20 10/17/20 Ensure Clear 237 ml PO DAILY@169910/17/20 10/17/20 Famotidine [Pepcid] 20 mg PO DAILY@59910/17/20 10/17/20 Ferrous Sulfate [Feosol] 325 mg PO DAILY@169910/17/20 10/17/20 Furosemide [Lasix] 40 mg PO DAILY@79910/17/20 10/17/20 Lactose-Reduced Food [Ensure Plus] 237 ml PO DAILY 10/17/20 10/17/20 Magnesium Hydroxide [Milk of 7,200 mg PO DAILY PRN 10/17/20 10/17/20 Magnesia Concentrate] Megestrol [Megace] 400 mg PO DAILY@79910/17/20 10/17/20 Na Phos,M-B/Na Phos,Di-Ba [Fleet 133 ml RECTAL DAILY PRN 10/17/20 10/17/20 Adult] Nystatin 100,000Unit/gm Cream 1 applic TOPICAL BID 10/17/20 10/17/20 [Mycostatin Cream] Ondansetron [Zofran] 4 mg PO Q8HR PRN 10/17/20 10/17/20 Triamcinolone 0.5% Cream [Kenalog 1 applic TOPICAL BID 10/17/20 10/17/20 0.5% Cream] bisacodyL [Dulcolax] 10 mg RECTAL DAILY@0600 PRN 10/17/20 10/17/20 traMADol HCl [Ultram] 50 mg PO QID PRN 10/17/20 10/17/20 Allergies Allergy/AdvReac Type Severity Reaction Status Date / Time cephalexin monohydrate Allergy Rash/Hives Verified 10/17/20 07:00 [From Keflex] rofecoxib [From Vioxx] Allergy Unknown Verified 10/17/20 07:00 doxycycline [From Vibramycin] AdvReac Nausea & Verified 10/17/20 07:00 Vomiting Review of Systems ROS Statement: Those systems with pertinent positive or pertinent negative responses have been documented in the HPI. ROS Other: All systems not noted in ROS Statement are negative. Past Medical History Past Medical History: Atrial Fibrillation, Coronary Artery Disease (CAD), Cancer, Diabetes Mellitus, GERD/Reflux, Hyperlipidemia, Hypertension, Osteoarthritis (OA), Renal Disease Additional Past Medical History / Comment(s): USES A WALKER, LEG SWELLING, MURMUR, SINUS PROBLEMS, BENIGN POLYPS, INCONT OF URINE, PAST HX ANEMIA, "kidney function-3.5", severe aortic stenosis, patent foramen ovale. SKIN CANCER History of Any Multi-Drug Resistant Organisms: None Reported Past Surgical History: Heart Catheterization, Heart Catheterization With Stent Additional Past Surgical History / Comment(s): CATARACT SURGERY, COLONOSCOPY, bisi, TAVR 01/03/2018. "STENT IN [facility]". Past Anesthesia/Blood Transfusion Reactions: No Reported Reaction Date of Last Stent Placement:: January 03, 2018 Past Psychological History: No Psychological Hx Reported Smoking Status: Former smoker Past Alcohol Use History: None Reported Past Drug Use History: None Reported - Past Family History Mother Family Medical History: CVA/TIA, Diabetes Mellitus Father Family Medical History: Cancer, Coronary Artery Disease (CAD) Brother(s) Family Medical History: CVA/TIA, Diabetes Mellitus Sister(s) Family Medical History: Dementia Son(s) Family Medical History: No Reported History Daughter(s) Family Medical History: No Reported History General Exam - General Exam Comments Initial Comments: GENERAL: Patient is well-developed and well-nourished. Patient is nontoxic and in no acute distress. HEAD: Atraumatic, normocephalic. EYES: Pupils equal round and reactive to light, extraocular movements intact, sclera anicteric, conjunctiva are normal. Eyelids were unremarkable. ENT: TMs normal, nares patent, oropharynx clear without exudates. Moist mucous membranes. NECK: Normal range of motion, supple without lymphadenopathy or JVD. LUNGS: Unlabored respirations. Breath sounds clear to auscultation bilaterally and equal. No wheezes rales or rhonchi. HEART: Regular rate and rhythm without murmurs, rubs or gallops. ABDOMEN: Soft, nontender, normoactive bowel sounds. No guarding, no rebound. No masses appreciated. : Deferred MUSCULOSKELETAL: Normal extremities with adequate strength and normal range of motion, no pitting or edema. No clubbing or cyanosis. NEUROLOGICAL: Patient is alert and oriented x 1, history dementia, her baseline. Motor and sensory are also intact. Cranial nerves II through XII grossly intact. Symmetrical smile. Normal speech, normal gait. PSYCH: Normal mood, normal affect. SKIN: Warm, Dry, normal turgor, no rashes or lesions noted. Limitations: altered mental status Rectal exam: Present: normal rectal tone, heme (+) stool Course Vital Signs 10/17/20 10/17/20 10/17/20 06:09 06:35 07:10 Temperature 98.2 F 97.9 F 97.3 F L Pulse Rate 61 75 77 Respiratory 18 18 20 Rate Blood Pressure 175/80 113/75 144/97 O2 Sat by Pulse 99 98 96 Oximetry Medical Decision Making - Medical Decision Making Patient is an 85-year-old female with history of dementia, A. fib, diabetes, hypertension, presenting for possible GI bleed. Hemoglobin yesterday was 6.7, today is 8.0. Positive occult test. No pain. Creatine is 3.30, BUN is 86, sodium is 132, potassium 5.7. Lactic acid is normal at 1.1, troponin is normal. UA does show evidence for UTI, patient was given single dose of Cipro in the ER, fluids and protonix. Patient will be admitted for GI bleed, a KI, UTI. Consult to claribel pizarro. Rapid covid negative. Patient accepted by Dr. Bose. Case discussed Dr. Arce. - Lab Data Result diagrams: 10/17/20 06:33 10/17/20 06:33 Lab Results 10/17/20 10/17/20 10/17/20 Range/Units 06:33 06:33 06:33 WBC 12.1 H (3.8-10.6) k/uL RBC 2.60 L (3.80-5.40) m/uL Hgb 8.0 L (11.4-16.0) gm/dL Hct 25.0 L (34.0-46.0) % MCV 96.3 (80.0-100.0) fL MCH 30.8 (25.0-35.0) pg MCHC 32.0 (31.0-37.0) g/dL RDW 17.1 H (11.5-15.5) % Plt Count 496 H (150-450) k/uL MPV 7.4 Neutrophils % 78 % Lymphocytes % 13 % Monocytes % 4 % Eosinophils % 4 % Basophils % 1 % Neutrophils # 9.4 H (1.3-7.7) k/uL Lymphocytes # 1.5 (1.0-4.8) k/uL Monocytes # 0.4 (0-1.0) k/uL Eosinophils # 0.5 (0-0.7) k/uL Basophils # 0.1 (0-0.2) k/uL Hypochromasia Slight Anisocytosis Slight Macrocytosis Slight PT 10.6 (9.0-12.0) sec INR 1.0 (<1.2) APTT 26.2 (22.0-30.0) sec Sodium (137-145) mmol/L Potassium (3.5-5.1) mmol/L Chloride (98-107) mmol/L Carbon Dioxide (22-30) mmol/L Anion Gap mmol/L BUN (7-17) mg/dL Creatinine (0.52-1.04) mg/dL Est GFR (CKD-EPI)AfAm (>60 ml/min/1.73 sqM) Est GFR (CKD-EPI)NonAf (>60 ml/min/1.73 sqM) Glucose (74-99) mg/dL Plasma Lactic Acid Evgeny (0.7-2.0) mmol/L Calcium (8.4-10.2) mg/dL Magnesium (1.6-2.3) mg/dL Total Bilirubin (0.2-1.3) mg/dL AST (14-36) U/L ALT (4-34) U/L Alkaline Phosphatase (38-126) U/L Troponin I (0.000-0.034) ng/mL Total Protein (6.3-8.2) g/dL Albumin (3.5-5.0) g/dL Urine Color Urine Appearance (Clear) Urine pH (5.0-8.0) Ur Specific [place] (1.001-1.035) Urine Protein (Negative) Urine Glucose (UA) (Negative) Urine Ketones (Negative) Urine Blood (Negative) Urine Nitrite (Negative) Urine Bilirubin (Negative) Urine Urobilinogen (<2.0) mg/dL Ur Leukocyte Esterase (Negative) Urine RBC (0-5) /hpf Urine WBC (0-5) /hpf Urine WBC Clumps (None) /hpf Ur Squamous Epith Cells (0-4) /hpf Stool Occult Blood Positive H (Negative) Coronavirus (PCR) (Not Detectd) Blood Type Blood Type Recheck Bld Type Recheck Status Antibody Screen Spec Expiration Date 10/17/20 10/17/20 10/17/20 Range/Units 06:33 06:33 06:33 WBC (3.8-10.6) k/uL RBC (3.80-5.40) m/uL Hgb (11.4-16.0) gm/dL Hct (34.0-46.0) % MCV (80.0-100.0) fL MCH (25.0-35.0) pg MCHC (31.0-37.0) g/dL RDW (11.5-15.5) % Plt Count (150-450) k/uL MPV Neutrophils % % Lymphocytes % % Monocytes % % Eosinophils % % Basophils % % Neutrophils # (1.3-7.7) k/uL Lymphocytes # (1.0-4.8) k/uL Monocytes # (0-1.0) k/uL Eosinophils # (0-0.7) k/uL Basophils # (0-0.2) k/uL Hypochromasia Anisocytosis Macrocytosis PT (9.0-12.0) sec INR (<1.2) APTT (22.0-30.0) sec Sodium 132 L (137-145) mmol/L Potassium 5.7 H (3.5-5.1) mmol/L Chloride 108 H (98-107) mmol/L Carbon Dioxide 14 L (22-30) mmol/L Anion Gap 10 mmol/L BUN 86 H (7-17) mg/dL Creatinine 3.30 H (0.52-1.04) mg/dL Est GFR (CKD-EPI)AfAm 14 (>60 ml/min/1.73 sqM) Est GFR (CKD-EPI)NonAf 12 (>60 ml/min/1.73 sqM) Glucose 138 H (74-99) mg/dL Plasma Lactic Acid Evgeny 1.1 (0.7-2.0) mmol/L Calcium 8.9 (8.4-10.2) mg/dL Magnesium 2.5 H (1.6-2.3) mg/dL Total Bilirubin 0.5 (0.2-1.3) mg/dL AST 22 (14-36) U/L ALT 11 (4-34) U/L Alkaline Phosphatase 69 (38-126) U/L Troponin I <0.012 (0.000-0.034) ng/mL Total Protein 6.3 (6.3-8.2) g/dL Albumin 3.2 L (3.5-5.0) g/dL Urine Color Urine Appearance (Clear) Urine pH (5.0-8.0) Ur Specific [place] (1.001-1.035) Urine Protein (Negative) Urine Glucose (UA) (Negative) Urine Ketones (Negative) Urine Blood (Negative) Urine Nitrite (Negative) Urine Bilirubin (Negative) Urine Urobilinogen (<2.0) mg/dL Ur Leukocyte Esterase (Negative) Urine RBC (0-5) /hpf Urine WBC (0-5) /hpf Urine WBC Clumps (None) /hpf Ur Squamous Epith Cells (0-4) /hpf Stool Occult Blood (Negative) Coronavirus (PCR) (Not Detectd) Blood Type Blood Type Recheck Bld Type Recheck Status Antibody Screen Spec Expiration Date 10/17/20 10/17/20 10/17/20 Range/Units 06:33 06:38 06:50 WBC (3.8-10.6) k/uL RBC (3.80-5.40) m/uL Hgb (11.4-16.0) gm/dL Hct (34.0-46.0) % MCV (80.0-100.0) fL MCH (25.0-35.0) pg MCHC (31.0-37.0) g/dL RDW (11.5-15.5) % Plt Count (150-450) k/uL MPV Neutrophils % % Lymphocytes % % Monocytes % % Eosinophils % % Basophils % % Neutrophils # (1.3-7.7) k/uL Lymphocytes # (1.0-4.8) k/uL Monocytes # (0-1.0) k/uL Eosinophils # (0-0.7) k/uL Basophils # (0-0.2) k/uL Hypochromasia Anisocytosis Macrocytosis PT (9.0-12.0) sec INR (<1.2) APTT (22.0-30.0) sec Sodium (137-145) mmol/L Potassium (3.5-5.1) mmol/L Chloride (98-107) mmol/L Carbon Dioxide (22-30) mmol/L Anion Gap mmol/L BUN (7-17) mg/dL Creatinine (0.52-1.04) mg/dL Est GFR (CKD-EPI)AfAm (>60 ml/min/1.73 sqM) Est GFR (CKD-EPI)NonAf (>60 ml/min/1.73 sqM) Glucose (74-99) mg/dL Plasma Lactic Acid Evgeny (0.7-2.0) mmol/L Calcium (8.4-10.2) mg/dL Magnesium (1.6-2.3) mg/dL Total Bilirubin (0.2-1.3) mg/dL AST (14-36) U/L ALT (4-34) U/L Alkaline Phosphatase (38-126) U/L Troponin I (0.000-0.034) ng/mL Total Protein (6.3-8.2) g/dL Albumin (3.5-5.0) g/dL Urine Color Yellow Urine Appearance Turbid H (Clear) Urine pH 7.5 (5.0-8.0) Ur Specific [place] 1.015 (1.001-1.035) Urine Protein 1+ H (Negative) Urine Glucose (UA) Negative (Negative) Urine Ketones Negative (Negative) Urine Blood Negative (Negative) Urine Nitrite Negative (Negative) Urine Bilirubin Negative (Negative) Urine Urobilinogen <2.0 (<2.0) mg/dL Ur Leukocyte Esterase Large H (Negative) Urine RBC 1 (0-5) /hpf Urine WBC >182 H (0-5) /hpf Urine WBC Clumps Many H (None) /hpf Ur Squamous Epith Cells <1 (0-4) /hpf Stool Occult Blood (Negative) Coronavirus (PCR) Not Detected (Not Detectd) Blood Type A Positive Blood Type Recheck A Pos Bld Type Recheck Status No Antibody Screen NEGATIVE Spec Expiration Date 10/20/2020 - 2879 - EKG Data EKG Comments: Sinus rhythm first-degree AV block, left anterior fascicular block, no signs of acute process. To my to previous EKG on 09/17/2020. Ventricular rate 69, para level CCXII, QTC 426. Disposition Clinical Impression: Acute on chronic renal failure, UTI (urinary tract infection), GI bleed Disposition: ADMITTED IP TO THIS [facility] Condition: Stable Decision Date: 10/17/20 Decision Time: 07:52
[2020-10-17 06:41] LABS: Anisocytosis Slight; Basophils # (A) 0.1 k/uL (0-0.2); Basophils % (A) 1 %; Eosinophils # (A) 0.5 k/uL (0-0.7); Eosinophils % (A) 4 %; Hypochromasia Slight; Lymphocytes # (A) 1.5 k/uL (1.0-4.8); Lymphocytes % (A) 13 %; MCH 30.8 pg (25.0-35.0); MCV 96.3 fL (80.0-100.0); Macrocytosis Slight; Mean Platelet Volume 7.4; Monocytes # (A) 0.4 k/uL (0-1.0); Monocytes % (A) 4 %; Neutrophils # (A) 9.4 k/uL (1.3-7.7); Neutrophils % (A) 78 %; Platelet Count 496 k/uL (150-450); RDW 17.1 % (11.5-15.5); WBC 12.1 k/uL (3.8-10.6)
[2020-10-17 06:48] LABS: Albumin 3.2 g/dL (3.5-5.0); Calcium 8.9 mg/dL (8.4-10.2); Magnesium 2.5 mg/dL (1.6-2.3); Potassium 5.7 mmol/L (3.5-5.1); Total Bilirubin 0.5 mg/dL (0.2-1.3); Total Protein 6.3 g/dL (6.3-8.2)
[2020-10-17 07:00] LABS: Partial Thromboplastin Time 26.2 sec (22.0-30.0); Prothrombin Time 10.6 sec (9.0-12.0)
[2020-10-17] MEDS ORDERED: SODIUM CHLORIDE 0.9% 500 ML 500 ML IV STA ×2 (07:14→08:17)
[2020-10-17 07:37] LABS: Appearance,Urine Turbid (Clear); Bilirubin,Urine Negative (Negative); Blood,Urine Negative (Negative); Color,Urine Yellow; Glucose,Urine (UA) Negative (Negative); Ketones,Urine Negative (Negative); Leukocyte Esterase,Urine Large (Negative); Nitrite,Urine Negative (Negative); PH, Urine 7.5 (5.0-8.0); Protein,Urine 1+ (Negative); RBC,Urine 1 /hpf (0-5); Specific Gravity,Urine 1.015 (1.001-1.035); Squamous Epithelial Cell,Urine <1 /hpf (0-4); Urobilinogen,Urine <2.0 mg/dL (<2.0); WBC,Urine >182 /hpf (0-5)
[2020-10-17] MEDS ORDERED: LEVOFLOXACIN 750 MG TAB PO STA (07:48)
[2020-10-17] MEDS ORDERED: NALOXONE 0.4 MG/ML 1 ML VIAL IV PRN (07:53)
[2020-10-17] MEDS ORDERED: SODIUM CHLORIDE 0.9% 1,000 ML IV STA (08:17)
[2020-10-17] MEDS ORDERED: DEXTROSE 50% SYRINGE 50 ML IVP STA (10:39)
[2020-10-17] MEDS ORDERED: INSULIN REGULAR 100 UNIT/ML VIAL IV ONE (10:39)
[2020-10-17] MEDS ORDERED: SODIUM BICARB 8.4% 50 ML SYR (1 MEQ/ML) IV STA (10:39)
--- NOTE | 2020-10-17 11:26 | P.NPCON ---
History of Present Illness - Reason for Consult acute renal failure, chronic renal failure - History of Present Illness Reason for consultation: Acute kidney injury on chronic kidney disease History of present illness: Patient is a 85-year-old female seen in consultation for acute kidney injury on chronic kidney disease. Patient has chronic kidney disease stage IIIa with baseline creatinine in the range of 1-1.5. Creatinine on admission was 3.3. Patient presents from an accident care facility and is not a reliable historian. She was noted to have bright red stool per rectum while she was being cleaned and was initially sent to the hospital. Her hemoglobin yesterday was 6.7 but it doesn't seem like she received any transfusions. Hemoglobin this morning was 8.0. Potassium was on the higher side at 5.7 and she was noted to be acidotic with a bicarbonate level of 14. Blood pressure is stable. She did receive a normal saline bolus in the ER and is now maintained on normal saline at 75 mL an hour. She was receiving diuretics outpatient as well as lisinopril which are currently held. Patient's renal ultrasound from August 2020 revealed small size kidneys with no evidence of hydronephrosis. Vital signs are stable. General: The patient appeared well nourished and normally developed. HEENT: Head exam is unremarkable. Neck is without jugular venous distension. LUNGS: Breath sounds decreased. HEART: Rate and Rhythm are regular. ABDOMEN: Soft, nontender. EXTREMITITES: No edema. Past Medical History Past Medical History: Atrial Fibrillation, Coronary Artery Disease (CAD), Cancer, Diabetes Mellitus, GERD/Reflux, Hyperlipidemia, Hypertension, Osteoarthritis (OA), Renal Disease Additional Past Medical History / Comment(s): USES A WALKER, LEG SWELLING, MURMUR, SINUS PROBLEMS, BENIGN POLYPS, INCONT OF URINE, PAST HX ANEMIA, "kidney function-3.5", severe aortic stenosis, patent foramen ovale. SKIN CANCER History of Any Multi-Drug Resistant Organisms: None Reported Past Surgical History: Heart Catheterization, Heart Catheterization With Stent Additional Past Surgical History / Comment(s): CATARACT SURGERY, COLONOSCOPY, bisi, TAVR 01/03/2018. "STENT IN [facility]". Past Anesthesia/Blood Transfusion Reactions: No Reported Reaction Date of Last Stent Placement:: January 03, 2018 Smoking Status: Former smoker - Past Family History Mother Family Medical History: CVA/TIA, Diabetes Mellitus Father Family Medical History: Cancer, Coronary Artery Disease (CAD) Brother(s) Family Medical History: CVA/TIA, Diabetes Mellitus Sister(s) Family Medical History: Dementia Son(s) Family Medical History: No Reported History Daughter(s) Family Medical History: No Reported History Medications and Allergies Home Medications Medication Instructions Recorded Confirmed Type Potassium Chloride [K-Tab ER] 10 meq PO DAILY@1700 06/23/14 10/17/20 History hydrALAZINE HCL [Apresoline] 50 mg PO TID@0600,1400,2200 12/08/16 10/17/20 History Magnesium Oxide 400 mg PO DAILY@0800 02/17/17 10/17/20 History Apixaban [Eliquis] 2.5 mg PO BID@0800,1700 01/29/18 10/17/20 History Ascorbic Acid [Vitamin C] 500 mg PO DAILY@1700 01/29/18 10/17/20 History Cholecalciferol [Vitamin D3] 800 unit PO DAILY@1700 07/21/20 10/17/20 History Docusate [Colace] 200 mg PO DAILY@1700 07/21/20 10/17/20 History lisinopriL [Zestril] 2.5 mg PO HS 07/21/20 10/17/20 History Acetaminophen [Tylenol] 650 mg PO Q4H PRN 09/06/20 10/17/20 History Aspirin 81 mg PO DAILY@0900 09/06/20 10/17/20 History Diltiazem HCl [Cardizem] 90 mg PO BID@0800,1700 09/06/20 10/17/20 History Lovastatin [Altoprev] 20 mg PO HS 09/06/20 10/17/20 History Multivitamins, Thera [Multivitamin 1 tab PO DAILY@0 09/06/20 10/17/20 History (formulary)] Polyethylene Glycol 3350 [Miralax] 17 gm PO DAILY@0800 09/06/20 10/17/20 History Vitamin E 400 unit PO DAILY@1700 09/06/20 10/17/20 History allopurinoL [Zyloprim] 150 mg PO DAILY 09/06/20 10/17/20 History hydrALAZINE HCL 25 mg PO TID@0600,1400,2200 09/06/20 10/17/20 History Acetaminophen Suppository [Tylenol 650 mg RECTAL Q4H PRN 10/17/20 10/17/20 History Suppository] Cyanocobalamin [Vitamin B-12] 500 mcg PO DAILY@169910/17/20 10/17/20 History Ensure Clear 237 ml PO DAILY@169910/17/20 10/17/20 History Famotidine [Pepcid] 20 mg PO DAILY@0610/17/20 10/17/20 History Ferrous Sulfate [Feosol] 325 mg PO DAILY@169910/17/20 10/17/20 History Furosemide [Lasix] 40 mg PO DAILY@79910/17/20 10/17/20 History Lactose-Reduced Food [Ensure Plus] 237 ml PO DAILY 10/17/20 10/17/20 History Magnesium Hydroxide [Milk of 7,200 mg PO DAILY PRN 10/17/20 10/17/20 History Magnesia Concentrate] Megestrol [Megace] 400 mg PO DAILY@79910/17/20 10/17/20 History Na Phos,M-B/Na Phos,Di-Ba [Fleet 133 ml RECTAL DAILY PRN 10/17/20 10/17/20 History Adult] Nystatin 100,000Unit/gm Cream 1 applic TOPICAL BID 10/17/20 10/17/20 History [Mycostatin Cream] Ondansetron [Zofran] 4 mg PO Q8HR PRN 10/17/20 10/17/20 History Triamcinolone 0.5% Cream [Kenalog 1 applic TOPICAL BID 10/17/20 10/17/20 History 0.5% Cream] bisacodyL [Dulcolax] 10 mg RECTAL DAILY@0600 PRN 10/17/20 10/17/20 History traMADol HCl [Ultram] 50 mg PO QID PRN 10/17/20 10/17/20 History Allergies Allergy/AdvReac Type Severity Reaction Status Date / Time cephalexin monohydrate Allergy Rash/Hives Verified 10/17/20 07:00 [From Keflex] rofecoxib [From Vioxx] Allergy Unknown Verified 10/17/20 07:00 doxycycline [From Vibramycin] AdvReac Nausea & Verified 10/17/20 07:00 Vomiting Physical Exam Vitals: Vital Signs Temp Pulse Resp BP Pulse Ox 10/17/20 08:57 97.6 F 83 20 145/58 97 10/17/20 07:10 97.3 F L 77 20 144/97 96 10/17/20 06:35 97.9 F 75 18 113/75 98 10/17/20 06:09 98.2 F 61 18 175/80 99 Intake and Output 10/16/20 10/17/20 10/17/20 22:59 06:59 14:59 Other: Weight 72.212 kg 72.212 kg Results - Lab Results Most recent lab results Calcium 8.9 mg/dL (8.4-10.2) 10/17/20 06:33 Magnesium 2.5 mg/dL (1.6-2.3) H 10/17/20 06:33 10/17/20 06:33 10/17/20 06:33 Assessment and Plan Plan: Assessment: 1. Acute kidney injury secondary to ATN secondary to acute blood loss anemia an d overdiuresis. Creatinine 3.3 on admission. 2. Chronic kidney disease stage III. Baseline creatinine in the range of 1- 1.5. Etiology is nephrosclerosis. 3. Acute GI bleed. Hemoglobin 8.0 this morning. Surgery consulted. 4. Metabolic acidosis secondary to acute kidney injury. 5. Hyperkalemia secondary to acute kidney injury, lisinopril, acidosis as well as GI bleed. 6. Hypertension with chronic kidney disease. Plan: Stop normal saline. Start bicarb drip at 75 mL an hour. 10 units of IV insulin with an amp of D50 now. Repeat BMP this afternoon. Check bladder scan to make sure no urinary retention. She did undergo straight catheterization in the ER. Check iron studies. Add Cara. Thank you for the consultation. I will continue to follow the patient with you during her hospital stay.
[2020-10-17] MEDS: DEXTROSE 5% IN WATER 1,000 ML with SODIUM BICARB (1 MEQ/ML) 150 ML IV SCH (11:36)
[2020-10-17] MEDS ORDERED: DARBEPOETIN ALFA 40 MCG/0.4 ML SYRINGE SQ SCH (12:00)
--- NOTE | 2020-10-17 13:44 | P.GSCN ---
History of Present Illness Consult date: 10/17/20 History of present illness: CHIEF COMPLAINT: Anemia and GI bleed HISTORY OF PRESENT ILLNESS: This is a 85-year-old female with a known history of atrial fibrillation anticoagulated with the Eliquis, dementia, diabetes mellitus, hypertension, chronic kidney disease stage III, coronary artery disease with cardiac stent, severe aortic stenosis status post TAVR and PFO. Patient had recent hospitalization in September for GI bleed she underwent colonoscopy on 09/29/[address] mckeon which had shown diverticulosis and no active bleeding. Patient is resident at [facility]. Apparently patient was noted to have bright red blood in her stools today. She had a hemoglobin drawn yesterday which was 6.7 her hemoglobin today is 8. It does not appear that she received a blood transfusion. Her fecal occult blood is positive. Per floor nursing has been no further evidence of GI bleeding. Patient denies any abdominal pain. Denies any nausea or vomiting. Denies any fever or chills. Surgical service was consulted for GI bleed and anemia. Patient also has e vidence of acute kidney injury and is being followed by nephrology PAST MEDICAL HISTORY: See list. PAST SURGICAL HISTORY: See list. MEDICATIONS: See list. ALLERGIES: See list. SOCIAL HISTORY: No illicit drug use. REVIEW OF SYSTEMS: CONSTITUTIONAL: Denies fever or chills. HEENT: Denies blurred vision, vision changes, or eye pain. Denies hemoptysis CARDIOVASCULAR: Denies chest pain or pressure. RESPIRATORY: No shortness of breath. GASTROINTESTINAL: See HPI for pertinent findings HEMATOLOGIC: Denies bleeding disorders. GENITOURINARY: Denies any blood in urine or increased urinary frequency. SKIN: Denies pruitis. Denies rash. PHYSICAL EXAM: VITAL SIGNS: Reviewed GENERAL: Well-developed in no acute distress. HEENT: No sclera icterus. Extraocular movements grossly intact. Moist buccal mucosa. Head is atraumatic, normocephalic. No nasal drainage. ABDOMEN: Soft. Nondistended. Nontender NEUROLOGIC: Confused LABORATORY DATA: WBC 12.1 hemoglobin 8.0 fecal occult blood positive Creatinine 3.30 CO2 14 potassium 5.7 Covid not detected IMAGING: ASSESSMENT: 1. Acute GI bleed likely secondary to diverticular bleed. Patient had colonoscopy on 09/29/2020 that showed diverticulosis and no active bleeding at that time 2. Acute blood loss anemia 3. Acute kidney injury followed by nephrology 4. Hyperkalemia followed by nephrology PLAN: -We'll check tagged RBC scan if recurrent bleeding occurs -Continue to monitor hemoglobin -Continue to monitor for signs of bleeding -Nephrology is added Aranesp and checking iron studies -Continue to hold Eliquis Thank you for this consultation Physician [employer] Professor note has been reviewed by physician. Signing provider agrees with the documented findings, assessment, and plan of care. Past Medical History Past Medical History: Atrial Fibrillation, Coronary Artery Disease (CAD), Can cer, Diabetes Mellitus, GERD/Reflux, Hyperlipidemia, Hypertension, Osteoarthritis (OA), Renal Disease Additional Past Medical History / Comment(s): USES A WALKER, LEG SWELLING, MURMUR, SINUS PROBLEMS, BENIGN POLYPS, INCONT OF URINE, PAST HX ANEMIA, "kidney function-3.5", severe aortic stenosis, patent foramen ovale. SKIN CANCER History of Any Multi-Drug Resistant Organisms: None Reported Past Surgical History: Heart Catheterization, Heart Catheterization With Stent Additional Past Surgical History / Comment(s): CATARACT SURGERY, COLONOSCOPY, bisi, TAVR 01/03/2018. "STENT IN [facility]". Past Anesthesia/Blood Transfusion Reactions: No Reported Reaction Date of Last Stent Placement:: January 03, 2018 Smoking Status: Former smoker - Past Family History Mother Family Medical History: CVA/TIA, Diabetes Mellitus Father Family Medical History: Cancer, Coronary Artery Disease (CAD) Brother(s) Family Medical History: CVA/TIA, Diabetes Mellitus Sister(s) Family Medical History: Dementia Son(s) Family Medical History: No Reported History Daughter(s) Family Medical History: No Reported History Medications and Allergies Home Medications Medication Instructions Recorded Confirmed Type Potassium Chloride [K-Tab ER] 10 meq PO DAILY@1700 06/23/10/17/20 History hydrALAZINE HCL [Apresoline] 50 mg PO TID@0600,1400,2200 12/08/16 10/17/20 History Magnesium Oxide 400 mg PO DAILY@0800 02/17/17 10/17/20 History Apixaban [Eliquis] 2.5 mg PO BID@0800,1700 01/29/18 10/17/20 History Ascorbic Acid [Vitamin C] 500 mg PO DAILY@1700 01/29/18 10/17/20 History Cholecalciferol [Vitamin D3] 800 unit PO DAILY@1700 07/21/20 10/17/20 History Docusate [Colace] 200 mg PO DAILY@1700 07/21/20 10/17/20 History lisinopriL [Zestril] 2.5 mg PO HS 07/21/20 10/17/20 History Acetaminophen [Tylenol] 650 mg PO Q4H PRN 09/06/20 10/17/20 History Aspirin 81 mg PO DAILY@0900 09/06/20 10/17/20 History Diltiazem HCl [Cardizem] 90 mg PO BID@0800,1700 09/06/20 10/17/20 History Lovastatin [Altoprev] 20 mg PO HS 09/06/20 10/17/20 History Multivitamins, Thera [Multivitamin 1 tab PO DAILY@0 09/06/20 10/17/20 History (formulary)] Polyethylene Glycol 3350 [Miralax] 17 gm PO DAILY@0800 09/06/20 10/17/20 History Vitamin E 400 unit PO DAILY@1700 09/06/20 10/17/20 History allopurinoL [Zyloprim] 150 mg PO DAILY 09/06/20 10/17/20 History hydrALAZINE HCL 25 mg PO TID@0600,1400,2200 09/06/20 10/17/20 History Acetaminophen Suppository [Tylenol 650 mg RECTAL Q4H PRN 10/17/20 10/17/20 History Suppository] Cyanocobalamin [Vitamin B-12] 500 mcg PO DAILY@169910/17/20 10/17/20 History Ensure Clear 237 ml PO DAILY@169910/17/20 10/17/20 History Famotidine [Pepcid] 20 mg PO DAILY@0610/17/20 10/17/20 History Ferrous Sulfate [Feosol] 325 mg PO DAILY@169910/17/20 10/17/20 History Furosemide [Lasix] 40 mg PO DAILY@0800 10/17/20 10/17/20 History Lactose-Reduced Food [Ensure Plus] 237 ml PO DAILY 10/17/20 10/17/20 History Magnesium Hydroxide [Milk of 7,200 mg PO DAILY PRN 10/17/20 10/17/20 History Magnesia Concentrate] Megestrol [Megace] 400 mg PO DAILY@0800 10/17/20 10/17/20 History Na Phos,M-B/Na Phos,Di-Ba [Fleet 133 ml RECTAL DAILY PRN 10/17/20 10/17/20 History Adult] Nystatin 100,000Unit/gm Cream 1 applic TOPICAL BID 10/17/20 10/17/20 History [Mycostatin Cream] Ondansetron [Zofran] 4 mg PO Q8HR PRN 10/17/20 10/17/20 History Triamcinolone 0.5% Cream [Kenalog 1 applic TOPICAL BID 10/17/20 10/17/20 History 0.5% Cream] bisacodyL [Dulcolax] 10 mg RECTAL DAILY@0600 PRN 10/17/20 10/17/20 History traMADol HCl [Ultram] 50 mg PO QID PRN 10/17/20 10/17/20 History Allergies Allergy/AdvReac Type Severity Reaction Status Date / Time cephalexin monohydrate Allergy Rash/Hives Verified 10/17/20 07:00 [From Keflex] rofecoxib [From Vioxx] Allergy Unknown Verified 10/17/20 07:00 doxycycline [From Vibramycin] AdvReac Nausea & Verified 10/17/20 07:00 Vomiting Surgical - Exam Vital Signs Temp Pulse Resp BP Pulse Ox 98.2 F 61 18 175/80 99 10/17/20 06:09 10/17/20 06:09 10/17/20 06:09 10/17/20 06:09 10/17/20 06:09 Results - Labs 10/17/20 06:33 10/17/20 06:33 Abnormal Lab Results - Last 24 Hours (Table) 10/17/20 10/17/20 10/17/20 Range/Units 06:33 06:33 06:33 WBC 12.1 H (3.8-10.6) k/uL RBC 2.60 L (3.80-5.40) m/uL Hgb 8.0 L (11.4-16.0) gm/dL Hct 25.0 L (34.0-46.0) % RDW 17.1 H (11.5-15.5) % Plt Count 496 H (150-450) k/uL Neutrophils # 9.4 H (1.3-7.7) k/uL Sodium 132 L (137-145) mmol/L Potassium 5.7 H (3.5-5.1) mmol/L Chloride 108 H (98-107) mmol/L Carbon Dioxide 14 L (22-30) mmol/L BUN 86 H (7-17) mg/dL Creatinine 3.30 H (0.52-1.04) mg/dL Glucose 138 H (74-99) mg/dL Magnesium 2.5 H (1.6-2.3) mg/dL Albumin 3.2 L (3.5-5.0) g/dL Urine Appearance (Clear) Urine Protein (Negative) Ur Leukocyte Esterase (Negative) Urine WBC (0-5) /hpf Urine WBC Clumps (None) /hpf Stool Occult Blood Positive H (Negative) 10/17/20 Range/Units 06:38 WBC (3.8-10.6) k/uL RBC (3.80-5.40) m/uL Hgb (11.4-16.0) gm/dL Hct (34.0-46.0) % RDW (11.5-15.5) % Plt Count (150-450) k/uL Neutrophils # (1.3-7.7) k/uL Sodium (137-145) mmol/L Potassium (3.5-5.1) mmol/L Chloride (98-107) mmol/L Carbon Dioxide (22-30) mmol/L BUN (7-17) mg/dL Creatinine (0.52-1.04) mg/dL Glucose (74-99) mg/dL Magnesium (1.6-2.3) mg/dL Albumin (3.5-5.0) g/dL Urine Appearance Turbid H (Clear) Urine Protein 1+ H (Negative) Ur Leukocyte Esterase Large H (Negative) Urine WBC >182 H (0-5) /hpf Urine WBC Clumps Many H (None) /hpf Stool Occult Blood (Negative) Diabetes panel 10/17/20 Range/Units 06:33 Sodium 132 L (137-145) mmol/L Potassium 5.7 H (3.5-5.1) mmol/L Chloride 108 H (98-107) mmol/L Carbon Dioxide 14 L (22-30) mmol/L BUN 86 H (7-17) mg/dL Creatinine 3.30 H (0.52-1.04) mg/dL Glucose 138 H (74-99) mg/dL Calcium 8.9 (8.4-10.2) mg/dL AST 22 (14-36) U/L ALT 11 (4-34) U/L Alkaline Phosphatase 69 (38-126) U/L Total Protein 6.3 (6.3-8.2) g/dL Albumin 3.2 L (3.5-5.0) g/dL Calcium panel 10/17/20 Range/Units 06:33 Calcium 8.9 (8.4-10.2) mg/dL Albumin 3.2 L (3.5-5.0) g/dL Pituitary panel 10/17/20 Range/Units 06:33 Sodium 132 L (137-145) mmol/L Potassium 5.7 H (3.5-5.1) mmol/L Chloride 108 H (98-107) mmol/L Carbon Dioxide 14 L (22-30) mmol/L BUN 86 H (7-17) mg/dL Creatinine 3.30 H (0.52-1.04) mg/dL Glucose 138 H (74-99) mg/dL Calcium 8.9 (8.4-10.2) mg/dL Adrenal panel 10/17/20 Range/Units 06:33 Sodium 132 L (137-145) mmol/L Potassium 5.7 H (3.5-5.1) mmol/L Chloride 108 H (98-107) mmol/L Carbon Dioxide 14 L (22-30) mmol/L BUN 86 H (7-17) mg/dL Creatinine 3.30 H (0.52-1.04) mg/dL Glucose 138 H (74-99) mg/dL Calcium 8.9 (8.4-10.2) mg/dL Total Bilirubin 0.5 (0.2-1.3) mg/dL AST 22 (14-36) U/L ALT 11 (4-34) U/L Alkaline Phosphatase 69 (38-126) U/L Total Protein 6.3 (6.3-8.2) g/dL Albumin 3.2 L (3.5-5.0) g/dL
[2020-10-17] MEDS ORDERED: ACETAMINOPHEN TAB 325 MG TAB PO PRN (15:24)
--- NOTE | 2020-10-17 15:24 | P.HPIM ---
History of Present Illness H&P Date: 10/17/20 Chief Complaint: Weakness. This is a history and physical and 85-year-old female who has struggled with re- hospitalization and readmission. She has presented with acute renal failure and significant anemia. The patient has had significant problems with weakness and has been doing well at the extended care facility but has now had a significant change in activity level. No overt fever or chills but due to her multiple comorbidities and advancing age, she is admitted appropriately Review of Systems Constitutional: Reports fatigue, Reports weakness Eyes: denies blurred vision, denies pain Ears, nose, mouth and throat: Denies headache, Denies sore throat Cardiovascular: Denies chest pain, Denies shortness of breath Respiratory: Denies cough Gastrointestinal: Denies abdominal pain, Denies diarrhea, Denies nausea, Denies vomiting Genitourinary: Denies dysuria, Denies hematuria Past Medical History Past Medical History: Atrial Fibrillation, Coronary Artery Disease (CAD), Cancer, Diabetes Mellitus, GERD/Reflux, Hyperlipidemia, Hypertension, Osteoarthritis (OA), Renal Disease Additional Past Medical History / Comment(s): USES A WALKER, LEG SWELLING, MURMUR, SINUS PROBLEMS, BENIGN POLYPS, INCONT OF URINE, PAST HX ANEMIA, "kidney function-3.5", severe aortic stenosis, patent foramen ovale. SKIN CANCER History of Any Multi-Drug Resistant Organisms: None Reported Past Surgical History: Heart Catheterization, Heart Catheterization With Stent Additional Past Surgical History / Comment(s): CATARACT SURGERY, COLONOSCOPY, bisi, TAVR 01/03/2018. "STENT IN [facility]". Past Anesthesia/Blood Transfusion Reactions: No Reported Reaction Date of Last Stent Placement:: January 03, 2018 Smoking Status: Former smoker - Past Family History Mother Family Medical History: CVA/TIA, Diabetes Mellitus Father Family Medical History: Cancer, Coronary Artery Disease (CAD) Brother(s) Family Medical History: CVA/TIA, Diabetes Mellitus Sister(s) Family Medical History: Dementia Son(s) Family Medical History: No Reported History Daughter(s) Family Medical History: No Reported History Medications and Allergies Home Medications Medication Instructions Recorded Confirmed Type Potassium Chloride [K-Tab ER] 10 meq PO DAILY@1700 06/23/14 10/17/20 History hydrALAZINE HCL [Apresoline] 50 mg PO TID@0600,1400,2200 12/08/16 10/17/20 History Magnesium Oxide 400 mg PO DAILY@0800 02/17/17 10/17/20 History Apixaban [Eliquis] 2.5 mg PO BID@0800,1700 01/29/18 10/17/20 History Ascorbic Acid [Vitamin C] 500 mg PO DAILY@1700 01/29/18 10/17/20 History Cholecalciferol [Vitamin D3] 800 unit PO DAILY@1700 07/21/20 10/17/20 History Docusate [Colace] 200 mg PO DAILY@17007/21/20 10/17/20 History lisinopriL [Zestril] 2.5 mg PO HS 07/21/20 10/17/20 History Acetaminophen [Tylenol] 650 mg PO Q4H PRN 09/06/20 10/17/20 History Aspirin 81 mg PO DAILY@0900 09/06/20 10/17/20 History Diltiazem HCl [Cardizem] 90 mg PO BID@0800,169909/06/20 10/17/20 History Lovastatin [Altoprev] 20 mg PO HS 09/06/20 10/17/20 History Multivitamins, Thera [Multivitamin 1 tab PO DAILY@169909/06/20 10/17/20 History (formulary)] Polyethylene Glycol 3350 [Miralax] 17 gm PO DAILY@0800 09/06/20 10/17/20 History Vitamin E 400 unit PO DAILY@1700 09/06/20 10/17/20 History allopurinoL [Zyloprim] 150 mg PO DAILY 09/06/20 10/17/20 History hydrALAZINE HCL 25 mg PO TID@0600,1400,2200 09/06/20 10/17/20 History Acetaminophen Suppository [Tylenol 650 mg RECTAL Q4H PRN 10/17/20 10/17/20 History Suppository] Cyanocobalamin [Vitamin B-12] 500 mcg PO DAILY@169910/17/20 10/17/20 History Ensure Clear 237 ml PO DAILY@1700 10/17/20 10/17/20 History Famotidine [Pepcid] 20 mg PO DAILY@0610/17/20 10/17/20 History Ferrous Sulfate [Feosol] 325 mg PO DAILY@1700 10/17/20 10/17/20 History Furosemide [Lasix] 40 mg PO DAILY@0800 10/17/20 10/17/20 History Lactose-Reduced Food [Ensure Plus] 237 ml PO DAILY 10/17/20 10/17/20 History Magnesium Hydroxide [Milk of 7,200 mg PO DAILY PRN 10/17/20 10/17/20 History Magnesia Concentrate] Megestrol [Megace] 400 mg PO DAILY@0800 10/17/20 10/17/20 History Na Phos,M-B/Na Phos,Di-Ba [Fleet 133 ml RECTAL DAILY PRN 10/17/20 10/17/20 History Adult] Nystatin 100,000Unit/gm Cream 1 applic TOPICAL BID 10/17/20 10/17/20 History [Mycostatin Cream] Ondansetron [Zofran] 4 mg PO Q8HR PRN 10/17/20 10/17/20 History Triamcinolone 0.5% Cream [Kenalog 1 applic TOPICAL BID 10/17/20 10/17/20 History 0.5% Cream] bisacodyL [Dulcolax] 10 mg RECTAL DAILY@0600 PRN 10/17/20 10/17/20 History traMADol HCl [Ultram] 50 mg PO QID PRN 10/17/20 10/17/20 History Allergies Allergy/AdvReac Type Severity Reaction Status Date / Time cephalexin monohydrate Allergy Rash/Hives Verified 10/17/20 07:00 [From Keflex] rofecoxib [From Vioxx] Allergy Unknown Verified 10/17/20 07:00 doxycycline [From Vibramycin] AdvReac Nausea & Verified 10/17/20 07:00 Vomiting Physical Exam Vitals: Vital Signs Temp Pulse Pulse Resp BP BP Pulse Ox 10/17/20 14:53 18 10/17/20 14:00 97.9 F 84 18 129/64 98 10/17/20 09:30 97.6 F 88 17 162/63 94 L 10/17/20 08:57 97.6 F 83 20 145/58 97 10/17/20 07:10 97.3 F L 77 20 144/97 96 10/17/20 06:35 97.9 F 75 18 113/75 98 10/17/20 06:09 98.2 F 61 18 175/80 99 Intake and Output 10/17/20 10/17/20 10/17/20 06:59 14:59 22:59 Intake Total 75 Balance 75 Intake: IV 75 Dextrose 5% in Water 1, 75 000 ml @ 75 mls/hr IV . [id number] OLIVIA with Sodium Bicarb (1 Meq/ml) 150 ml Rx#:[id number] Other: Voiding Method Incontinent # Voids 1 Weight 72.212 kg 72.212 kg - Constitutional General appearance: mild distress, thin - Neck Neck: no lymphadenopathy - Respiratory Respiratory: bilateral: diminished - Cardiovascular Rhythm: regular Heart sounds: normal: S1, S2 Abnormal Heart Sounds: no S3 Gallop - Gastrointestinal General gastrointestinal: soft, no tenderness - Integumentary Integumentary: no cellulitis - Musculoskeletal Musculoskeletal: generalized weakness - Psychiatric Psychiatric: A&O x's 3 Results CBC & Chem 7: 10/17/20 06:33 10/17/20 06:33 Labs: Abnormal Lab Results - Last 24 Hours (Table) 10/17/20 10/17/20 10/17/20 Range/Units 06:33 06:33 06:33 WBC 12.1 H (3.8-10.6) k/uL RBC 2.60 L (3.80-5.40) m/uL Hgb 8.0 L (11.4-16.0) gm/dL Hct 25.0 L (34.0-46.0) % RDW 17.1 H (11.5-15.5) % Plt Count 496 H (150-450) k/uL Neutrophils # 9.4 H (1.3-7.7) k/uL Sodium 132 L (137-145) mmol/L Potassium 5.7 H (3.5-5.1) mmol/L Chloride 108 H (98-107) mmol/L Carbon Dioxide 14 L (22-30) mmol/L BUN 86 H (7-17) mg/dL Creatinine 3.30 H (0.52-1.04) mg/dL Glucose 138 H (74-99) mg/dL Magnesium 2.5 H (1.6-2.3) mg/dL Albumin 3.2 L (3.5-5.0) g/dL Urine Appearance (Clear) Urine Protein (Negative) Ur Leukocyte Esterase (Negative) Urine WBC (0-5) /hpf Urine WBC Clumps (None) /hpf Stool Occult Blood Positive H (Negative) 10/17/20 Range/Units 06:38 WBC (3.8-10.6) k/uL RBC (3.80-5.40) m/uL Hgb (11.4-16.0) gm/dL Hct (34.0-46.0) % RDW (11.5-15.5) % Plt Count (150-450) k/uL Neutrophils # (1.3-7.7) k/uL Sodium (137-145) mmol/L Potassium (3.5-5.1) mmol/L Chloride (98-107) mmol/L Carbon Dioxide (22-30) mmol/L BUN (7-17) mg/dL Creatinine (0.52-1.04) mg/dL Glucose (74-99) mg/dL Magnesium (1.6-2.3) mg/dL Albumin (3.5-5.0) g/dL Urine Appearance Turbid H (Clear) Urine Protein 1+ H (Negative) Ur Leukocyte Esterase Large H (Negative) Urine WBC >182 H (0-5) /hpf Urine WBC Clumps Many H (None) /hpf Stool Occult Blood (Negative) Thrombosis Risk Factor Assmnt - Choose All That Apply Any of the Below Risk Factors Present?: Yes Each Factor Represents 1 point: Obesity (BMI >25) Other Risk Factors: Yes Each Risk Factor Represents 3 Points: Age 75 years or older Other congenital or acquired thrombophilia - If yes, enter type in comment: No Thrombosis Risk Factor Assessment Total Risk Factor Score: 4 Thrombosis Risk Factor Assessment Level: Moderate Risk Assessment and Plan (1) Chronic atrial fibrillation Current Visit: Yes Status: Acute Code(s): I48.20 - CHRONIC ATRIAL FIBRILLATION, UNSPECIFIED SNOMED Code(s): 641539088 (2) Acute on chronic renal failure Current Visit: Yes Status: Acute Code(s): N17.9 - ACUTE KIDNEY FAILURE, UNSPECIFIED; N18.9 - CHRONIC KIDNEY DISEASE, UNSPECIFIED SNOMED Code(s): 505273606 (3) Gastrointestinal hemorrhage Current Visit: Yes Status: Acute Code(s): K92.2 - GASTROINTESTINAL HEMORRHAGE, UNSPECIFIED SNOMED Code(s): 04948595 (4) Anemia Current Visit: No Status: Acute Code(s): D64.9 - ANEMIA, UNSPECIFIED SNOMED Code(s): 244096038 (5) Diabetes Current Visit: No Status: Chronic Code(s): E11.9 - TYPE 2 DIABETES MELLITUS WITHOUT COMPLICATIONS SNOMED Code(s): 33697682 (6) History of hyperlipidemia Current Visit: No Status: Chronic Code(s): Z86.39 - PERSONAL HISTORY OF EN DO, NUTRITIONAL AND METABOLIC DISEASE SNOMED Code(s): 151396495 (7) History of hypertension Current Visit: No Status: Chronic Code(s): Z86.79 - PERSONAL HISTORY OF OTHER DISEASES OF THE CIRCULATORY SYSTEM SNOMED Code(s): 314770253 (8) Tobacco dependence in remission Current Visit: No Status: Resolved Code(s): F17.201 - NICOTINE DEPENDENCE, UNSPECIFIED, IN REMISSION SNOMED Code(s): 458584576 Plan: We will consult appropriate surgery and nephrology for GI bleeding and acute on chronic renal failure. history of diabetes and hypoglycemia when she was taking glipizide. This medication will be continued be held. Hydrate gingerly. Check CBC and CMP in the a.m. Reconcile home medications. Dr. Hager's group will be covering for the weekend. Time with Patient: Greater than 30
[2020-10-17 16:26] LABS: African American GFR (CKD) 15 (>60 ml/min/1.73 sqM); Blood Urea Nitrogen 75 mg/dL (7-17); Calcium 8.1 mg/dL (8.4-10.2); Carbon Dioxide 17 mmol/L (22-30); Chloride 109 mmol/L (98-107); Glucose 189 mg/dL (74-99); Non-African American GFR(CKD) 13 (>60 ml/min/1.73 sqM); Potassium 5.1 mmol/L (3.5-5.1)
[2020-10-17 16:27] LABS: Anion Gap 8 mmol/L; Sodium 134 mmol/L (137-145)
[2020-10-17] MEDS: FERROUS SULFATE 325 MG TAB PO SCH (16:36)
[2020-10-17] MEDS: ASCORBIC ACID 500 MG TAB PO SCH (16:36)
[2020-10-17] MEDS: CYANOCOBALAMIN 500 MCG TAB PO SCH (16:36)
[2020-10-17] MEDS: CHOLECALCIFEROL 400 UNIT TAB PO SCH (16:36)
[2020-10-17] MEDS: DILTIAZEM ORAL 30 MG TAB PO SCH (16:36)
[2020-10-17] MEDS ORDERED: NON FORMULARY DRUG (Ensure Clear 1 BOX Liquid) PO SCH (17:00)
[2020-10-17 17:07] LABS: Ferritin 204.3 ng/mL (10.0-291.0)
[2020-10-18] MEDS: hydrALAZINE HCL 50 MG TAB PO SCH ×4 (04:53→21:07)
[2020-10-18] MEDS: hydrALAZINE HCL 25 MG TAB PO SCH ×4 (04:54→21:07)
[2020-10-18] MEDS ORDERED: bisacodyL 10 MG SUPP RECTAL PRN (06:00)
[2020-10-18] MEDS: FAMOTIDINE 20 MG TAB PO SCH (06:11)
[2020-10-18 06:27] LABS: Anisocytosis Slight; HCT 21.6 % (34.0-46.0); MCH 30.1 pg (25.0-35.0); MCV 96.9 fL (80.0-100.0); Macrocytosis Slight; Mean Platelet Volume 7.3; Platelet Count 443 k/uL (150-450); RBC 2.23 m/uL (3.80-5.40); RDW 17.8 % (11.5-15.5); WBC 10.3 k/uL (3.8-10.6)
[2020-10-18 06:35] LABS: HGB 6.7 gm/dL (11.4-16.0)
[2020-10-18] MEDS: DEXTROSE 5% IN WATER 1,000 ML with SODIUM BICARB (1 MEQ/ML) 150 ML IV SCH (07:10)
[2020-10-18] MEDS: DILTIAZEM ORAL 30 MG TAB PO SCH ×2 (08:53→17:53)
[2020-10-18] MEDS: allopurinoL 300 MG TAB PO SCH (08:53)
[2020-10-18] MEDS: FUROSEMIDE 40 MG TAB PO SCH (08:53)
[2020-10-18] MEDS ORDERED: NON FORMULARY DRUG (Lactose-Reduced Food [Ensure Plus] 237 ML Liquid) PO SCH (09:00)
[2020-10-18] MEDS ORDERED: ASPIRIN 81 MG PO SCH (09:00)
[2020-10-18 09:49] LABS: African American GFR (CKD) 16.3 (60.0-200.0); Albumin/Globulin Ratio 1.43 (1.60-3.17); Anion Gap 9.6 mmol/L (4.00-12.00); BUN/Creat Ratio 25.52 Ratio (12.00-20.00); Calcium 8.2 mg/dL (8.7-10.3); Carbon Dioxide 21.4 mmol/L (21.6-31.8); Globulin 2.1 g/dL (1.6-3.3); Magnesium 2.1 mg/dL (1.5-2.4); Non-African American GFR(CKD) 14.1 (60.0-200.0); Total Bilirubin 0.3 mg/dL (0.2-1.2); Total Protein 5.1 g/dL (6.2-8.2)
--- NOTE | 2020-10-18 12:02 | P.PN ---
Progress Note - Text Progress Note Date: 10/18/20 Patient remained stable. She has dropped her hemoglobin. Is 6.7 this morning. Patient has a known history of diverticulosis. It was presumed that her bleeding is due to diverticulosis. On exam vital signs are stable. Abdomen soft. Patient was received supportive care. She is receiving a unit of blood this morning. She'll be closely observed.
--- NOTE | 2020-10-18 15:17 | P.PN ---
Subjective Progress Note Date: 10/18/20 Follow-up for acute kidney injury. Objective - Vital Signs Vital signs: Vital Signs Temp 98.3 F 10/18/20 15:08 Pulse 98 10/18/20 15:08 Resp 14 10/18/20 15:08 BP 169/53 10/18/20 15:08 Pulse Ox 97 10/18/20 15:07 Intake & Output 10/17/20 10/18/20 10/18/20 18:59 06:59 18:59 Intake Total 300 50 200 Output Total 2 Balance 300 50 198 Weight 72.212 kg Intake: IV 300 Dextrose 5% in Water 1, 300 000 ml @ 75 mls/hr IV . [id number] OLIVIA with Sodium Bicarb (1 Meq/ml) 150 ml Rx#:[id number] Oral 50 Blood Product 200 Rc As-1 Unit 200 [id number] Output: Urine 1 Stool 1 Other: Voiding Method Incontinent Incontinent # Voids 1 1 - Exam No acute distress S1-S2 heard Decreased breath. No edema - Labs CBC & Chem 7: 10/18/20 05:27 10/18/20 05:27 Labs: Abnormal Lab Results - Last 24 Hours (Table) 10/17/20 10/17/20 10/17/20 Range/Units 06:33 06:33 15:43 RBC (3.80-5.40) m/uL Hgb (11.4-16.0) gm/dL Hct (34.0-46.0) % RDW (11.5-15.5) % Sodium 134 L (137-145) mmol/L Chloride 109 H (98-107) mmol/L Carbon Dioxide 17 L (22-30) mmol/L BUN 75 H (7-17) mg/dL Creatinine 3.09 H (0.52-1.04) mg/dL Est GFR (CKD-EPI)AfAm (60.0-200.0) Est GFR (CKD-EPI)NonAf (60.0-200.0) BUN/Creatinine Ratio (12.00-20.00) Ratio Glucose 189 H (74-99) mg/dL Calcium 8.1 L (8.4-10.2) mg/dL Iron 33 L (50-170) ug/dL Total Protein (6.2-8.2) g/dL Albumin (3.80-4.90) g/dL Albumin/Globulin Ratio (1.60-3.17) g/dL Crossmatch See Detail 10/18/20 10/18/20 Range/Units 05:27 05:27 RBC 2.23 L (3.80-5.40) m/uL Hgb 6.7 L* (11.4-16.0) gm/dL Hct 21.6 L (34.0-46.0) % RDW 17.8 H (11.5-15.5) % Sodium (137-145) mmol/L Chloride (98-107) mmol/L Carbon Dioxide 21.4 L (22-30) mmol/L BUN 74.0 H (7-17) mg/dL Creatinine 2.9 H (0.52-1.04) mg/dL Est GFR (CKD-EPI)AfAm 16.3 L (60.0-200.0) Est GFR (CKD-EPI)NonAf 14.1 L (60.0-200.0) BUN/Creatinine Ratio 25.52 H (12.00-20.00) Ratio Glucose (74-99) mg/dL Calcium 8.2 L (8.4-10.2) mg/dL Iron (50-170) ug/dL Total Protein 5.1 L (6.2-8.2) g/dL Albumin 3.00 L (3.80-4.90) g/dL Albumin/Globulin Ratio 1.43 L (1.60-3.17) g/dL Crossmatch Assessment and Plan Assessment: #1 acute kidney injury secondary to ischemic ATN from acute blood loss anemia. #2 metabolic acidosis improving #3 CK D stage III secondary to nephrosclerosis with a baseline creatinine of 1.0-1.5 MG per DL. #4 hyperkalemia resolved #5 hypertension with CKD #6 anemia multifactorial #7 complicated UTI Plan: #1 renal function improving. Lasix has been start the primary team.. Stop bicarb drip. #2 discontinue lisinopril and do not started discharge because of the risk of hyperkalemia. #3 avoid nephrotoxic agents and hypotensive episodes.
[2020-10-18 15:57] LABS: Anisocytosis Slight; Basophils % (A) 0 %; Eosinophils # (A) 0.3 k/uL (0-0.7); Eosinophils % (A) 3 %; HCT 23.8 % (34.0-46.0); HGB 7.9 gm/dL (11.4-16.0); Lymphocytes # (A) 1.3 k/uL (1.0-4.8); Lymphocytes % (A) 13 %; MCH 31.7 pg (25.0-35.0); MCHC 33.1 g/dL (31.0-37.0); MCV 95.8 fL (80.0-100.0); Macrocytosis Slight; Mean Platelet Volume 7.2; Monocytes # (A) 0.5 k/uL (0-1.0); Monocytes % (A) 5 %; Neutrophils # (A) 7.9 k/uL (1.3-7.7); Neutrophils % (A) 77 %; Platelet Count 400 k/uL (150-450); RBC 2.48 m/uL (3.80-5.40); RDW 16.9 % (11.5-15.5); WBC 10.2 k/uL (3.8-10.6)
[2020-10-18] MEDS: CHOLECALCIFEROL 400 UNIT TAB PO SCH (17:52)
[2020-10-18] MEDS: CYANOCOBALAMIN 500 MCG TAB PO SCH (17:52)
[2020-10-18] MEDS: ASCORBIC ACID 500 MG TAB PO SCH (17:52)
[2020-10-18] MEDS: FERROUS SULFATE 325 MG TAB PO SCH (17:53)
--- NOTE | 2020-10-18 23:04 | P.PN ---
Subjective Progress Note Date: 10/18/20 Principal diagnosis: GI bleed and BOBBY Ms. Fajardo is a 85-year-old female with a past medical history of atrial fibrillation, coronary artery disease, diabetes mellitus, GERD, hypertension, hyperlipidemia, chronic kidney disease stage III who was noted to have bright red stool per rectum while being cleaned at [facility], brought into the hospital via EMS. Patient is on anticoagulation with Eliquis. Patient is a poor historian as she has history of dementia. At the time of admission her hemoglobin was found to be 8 and a repeat a early from this morning was 6.7. As per discussion with nursing staff this morning, patient had a stool that was dark in color but no bright red blood noted. Currently patient is waiting to have a blood transfusion done. Review of systems could not be done as the patient is a poor historian. On reviewing the vitals temperature of 98.4, heart rate 84, respiratory rate 12, blood pressure 132/77 saturating at 97% on room air. On reviewing her labs hemoglobin is 6.7, platelets 443, white count of 10.3. BUN is 74 and creatinine of 2.9. Active Medications Acetaminophen (Acetaminophen Tab 325 Mg Tab) 650 mg PO Q4H PRN PRN Reason: Pain or Fever > 100.5 Allopurinol (Allopurinol 300 Mg Tab) 150 mg PO DAILY [facility] Last Admin: 10/18/20 08:53 Dose: 150 mg Documented by: Ascorbic Acid (Ascorbic Acid 500 Mg Tab) 500 mg PO DAILY@1700 [facility] Last Admin: 10/17/20 16:36 Dose: 500 mg Documented by: Aspirin (Aspirin 81 Mg) 81 mg PO DAILY@0900 [facility] Last Admin: 10/18/20 08:55 Dose: Not Given Documented by: Bisacodyl (Bisacodyl 10 Mg Supp) 10 mg RECTAL DAILY@0600 PRN PRN Reason: Constipation Cholecalciferol (Cholecalciferol 400 Unit Tab) 800 unit PO DAILY@1700 [facility] Last Admin: 10/17/20 16:36 Dose: 800 unit Documented by: Cyanocobalamin (Cyanocobalamin 500 Mcg Tab) 500 mcg PO DAILY@1700 [facility] Last Admin: 10/17/20 16:36 Dose: 500 mcg Documented by: Darbepoetin Harrison (Darbepoetin Harrison 40 Mcg/0.4 Ml Syringe) 40 mcg SQ Q7D [facility] Last Admin: 10/17/20 13:13 Dose: 40 mcg Documented by: Diltiazem HCl (Diltiazem Oral 30 Mg Tab) 90 mg PO BID@0800,1700 [facility] Last Admin: 10/18/20 08:53 Dose: 90 mg Documented by: Famotidine (Famotidine 20 Mg Tab) 20 mg PO DAILY@0600 [facility] Last Admin: 10/18/20 06:11 Dose: 20 mg Documented by: Ferrous Sulfate (Ferrous Sulfate 325 Mg Tab) 325 mg PO DAILY@1700 [facility] Last Admin: 10/17/20 16:36 Dose: 325 mg Documented by: Furosemide (Furosemide 40 Mg Tab) 40 mg PO DAILY@0800 [facility] Last Admin: 10/18/20 08:53 Dose: 40 mg Documented by: Hydralazine HCl (Hydralazine Hcl 50 Mg Tab) 50 mg PO TID@0600,1400,2200 [facility] Last Admin: 10/18/20 06:11 Dose: 50 mg Documented by: Hydralazine HCl (Hydralazine Hcl 25 Mg Tab) 25 mg PO TID@0600,1400,2200 [facility] Last Admin: 10/18/20 06:11 Dose: 25 mg Documented by: Sodium Bicarbonate 150 ml/ (Dextrose/Water) 1,150 mls @ 75 mls/hr IV .[id number] [facility] Last Admin: 10/18/20 07:10 Dose: 75 mls/hr Documented by: Lisinopril (Lisinopril 2.5 Mg Tab) 2.5 mg PO HS [facility] Last Admin: 10/17/20 20:51 Dose: 2.5 mg Documented by: Naloxone HCl (Naloxone 0.4 Mg/Ml 1 Ml Vial) 0.2 mg IV Q2M PRN PRN Reason: Opioid Reversal Objective - Vital Signs Vital signs: Vital Signs Temp 97.3 F L 10/18/20 08:05 Pulse 103 H 10/18/20 08:05 Resp 13 10/18/20 08:05 BP 135/68 10/18/20 08:05 Pulse Ox 93 L 10/18/20 08:05 Intake & Output 10/17/20 10/18/20 10/18/20 18:59 06:59 18:59 Intake Total 300 50 Balance 300 50 Weight 72.212 kg Intake: IV 300 Dextrose 5% in Water 1, 300 000 ml @ 75 mls/hr IV . [id number] OLIVIA with Sodium Bicarb (1 Meq/ml) 150 ml Rx#:[id number] Oral 50 Other: Voiding Method Incontinent Incontinent # Voids 1 1 - Exam General: The patient appeared well nourished and normally developed. HEENT: Head exam is unremarkable. Neck is without jugular venous distension. LUNGS: Breath sounds decreased at the lower lung bases HEART: Rate and Rhythm are regular. ABDOMEN: Soft, nontender. EXTREMITITES: No edema. - Labs CBC & Chem 7: 10/18/20 15:34 10/18/20 05:27 Labs: Abnormal Lab Results - Last 24 Hours (Table) 10/17/20 10/17/20 10/17/20 Range/Units 06:33 06:33 15:43 RBC (3.80-5.40) m/uL Hgb (11.4-16.0) gm/dL Hct (34.0-46.0) % RDW (11.5-15.5) % Sodium 134 L (137-145) mmol/L Chloride 109 H (98-107) mmol/L Carbon Dioxide 17 L (22-30) mmol/L BUN 75 H (7-17) mg/dL Creatinine 3.09 H (0.52-1.04) mg/dL Est GFR (CKD-EPI)AfAm (60.0-200.0) Est GFR (CKD-EPI)NonAf (60.0-200.0) BUN/Creatinine Ratio (12.00-20.00) Ratio Glucose 189 H (74-99) mg/dL Calcium 8.1 L (8.4-10.2) mg/dL Iron 33 L (50-170) ug/dL Total Protein (6.2-8.2) g/dL Albumin (3.80-4.90) g/dL Albumin/Globulin Ratio (1.60-3.17) g/dL Crossmatch See Detail 10/18/20 10/18/20 Range/Units 05:27 05:27 RBC 2.23 L (3.80-5.40) m/uL Hgb 6.7 L* (11.4-16.0) gm/dL Hct 21.6 L (34.0-46.0) % RDW 17.8 H (11.5-15.5) % Sodium (137-145) mmol/L Chloride (98-107) mmol/L Carbon Dioxide 21.4 L (22-30) mmol/L BUN 74.0 H (7-17) mg/dL Creatinine 2.9 H (0.52-1.04) mg/dL Est GFR (CKD-EPI)AfAm 16.3 L (60.0-200.0) Est GFR (CKD-EPI)NonAf 14.1 L (60.0-200.0) BUN/Creatinine Ratio 25.52 H (12.00-20.00) Ratio Glucose (74-99) mg/dL Calcium 8.2 L (8.4-10.2) mg/dL Iron (50-170) ug/dL Total Protein 5.1 L (6.2-8.2) g/dL Albumin 3.00 L (3.80-4.90) g/dL Albumin/Globulin Ratio 1.43 L (1.60-3.17) g/dL Crossmatch Assessment and Plan Assessment: ASSESSMENT Acute blood loss anemia secondary to GI bleed Acute kidney injury Chronic kidney disease stage III Type 2 diabetes mellitus Hypertension Hyperlipidemia Chronic atrial fibrillation on anticoagulation with Eliquis on hold now Coronary artery disease Severe aortic stenosis History of skin cancer Moderate protein calorie malnutrition PLAN: General surgery is consulted for GI bleed, no acute intervention planned. Patient is receiving 1 unit of PRBCs for low hemoglobin of 6.7. Will repeat CBC and transfuse if less than 7. Nephrology following the patient closely for acute kidney injury. We will repeat urinalysis with reflex cultures. continue with the current medication regimen and further recommendations to follow depending on the progress of the patient.
[2020-10-19 07:06] LABS: Anisocytosis Slight; Basophils % (A) 0 %; Eosinophils # (A) 0.4 k/uL (0-0.7); Eosinophils % (A) 4 %; HCT 23.9 % (34.0-46.0); HGB 7.8 gm/dL (11.4-16.0); Hypochromasia Slight; Lymphocytes # (A) 1.4 k/uL (1.0-4.8); Lymphocytes % (A) 14 %; MCH 31.4 pg (25.0-35.0); MCHC 32.5 g/dL (31.0-37.0); MCV 96.6 fL (80.0-100.0); Macrocytosis Slight; Mean Platelet Volume 7.2; Monocytes # (A) 0.6 k/uL (0-1.0); Monocytes % (A) 5 %; Neutrophils # (A) 7.6 k/uL (1.3-7.7); Neutrophils % (A) 75 %; Platelet Count 398 k/uL (150-450); RBC 2.48 m/uL (3.80-5.40); RDW 16.8 % (11.5-15.5); WBC 10.1 k/uL (3.8-10.6)
[2020-10-19] MEDS: allopurinoL 300 MG TAB PO SCH (08:57)
[2020-10-19] MEDS: hydrALAZINE HCL 50 MG TAB PO SCH ×3 (08:58→20:37)
[2020-10-19] MEDS: DILTIAZEM ORAL 30 MG TAB PO SCH ×2 (08:58→16:43)
[2020-10-19] MEDS: FAMOTIDINE 20 MG TAB PO SCH (08:58)
[2020-10-19] MEDS: hydrALAZINE HCL 25 MG TAB PO SCH ×3 (08:59→20:37)
[2020-10-19] MEDS: FUROSEMIDE 40 MG TAB PO SCH (08:59)
[2020-10-19 10:46] LABS: African American GFR (CKD) 16.3 (60.0-200.0); Anion Gap 11.6 mmol/L (4.00-12.00); BUN/Creat Ratio 23.79 Ratio (12.00-20.00); Calcium 8.3 mg/dL (8.7-10.3); Carbon Dioxide 20.4 mmol/L (21.6-31.8); Non-African American GFR(CKD) 14.1 (60.0-200.0); Potassium 4.6 mmol/L (3.5-5.5)
--- NOTE | 2020-10-19 11:07 | P.PN ---
Progress Note - Text Progress Note Date: 10/19/20 Patient's resting comfortably in bed. She is complaints of back pain from lying in bed. She's had no further GI bleed. Her hemoglobin remained stable. He will was 7.8. On exam vitals are stable. Soft. Probable diverticular bleed. Patient will be clinically observe this point.
--- NOTE | 2020-10-19 14:12 | P.PN ---
Subjective Progress Note Date: 10/19/20 Follow-up for acute kidney injury. Objective - Vital Signs Vital signs: Vital Signs Temp 98.2 F 10/19/20 08:00 Pulse 110 H 10/19/20 08:00 Resp 20 10/19/20 08:00 BP 159/64 10/19/20 08:00 Pulse Ox 98 10/19/20 08:00 Intake & Output 10/18/20 10/19/20 10/19/20 18:59 06:59 18:59 Intake Total 200 250 Output Total 4 Balance 196 250 Intake: Oral 250 Blood Product 200 Rc As-1 Unit 200 [id number] Output: Urine 3 Stool 1 Other: # Voids 3 # Bowel Movements 1 - Exam No acute distress S1-S2 heard Decreased breath. No edema - Labs CBC & Chem 7: 10/19/20 06:21 10/19/20 06:21 Labs: Abnormal Lab Results - Last 24 Hours (Table) 10/17/20 10/18/20 10/19/20 Range/Units 06:33 15:34 06:21 RBC 2.48 L 2.48 L (3.80-5.40) m/uL Hgb 7.9 L 7.8 L (11.4-16.0) gm/dL Hct 23.8 L 23.9 L (34.0-46.0) % RDW 16.9 H 16.8 H (11.5-15.5) % Neutrophils # 7.9 H (1.3-7.7) k/uL Carbon Dioxide (21.6-31.8) mmol/L BUN (9.0-27.0) mg/dL Creatinine (0.6-1.5) mg/dL Est GFR (CKD-EPI)AfAm (60.0-200.0) Est GFR (CKD-EPI)NonAf (60.0-200.0) BUN/Creatinine Ratio (12.00-20.00) Ratio Glucose (70-110) mg/dL Calcium (8.7-10.3) mg/dL Crossmatch See Detail 10/19/20 Range/Units 06:21 RBC (3.80-5.40) m/uL Hgb (11.4-16.0) gm/dL Hct (34.0-46.0) % RDW (11.5-15.5) % Neutrophils # (1.3-7.7) k/uL Carbon Dioxide 20.4 L (21.6-31.8) mmol/L BUN 69.0 H (9.0-27.0) mg/dL Creatinine 2.9 H (0.6-1.5) mg/dL Est GFR (CKD-EPI)AfAm 16.3 L (60.0-200.0) Est GFR (CKD-EPI)NonAf 14.1 L (60.0-200.0) BUN/Creatinine Ratio 23.79 H (12.00-20.00) Ratio Glucose 125 H (70-110) mg/dL Calcium 8.3 L (8.7-10.3) mg/dL Crossmatch Assessment and Plan Assessment: #1 acute kidney injury secondary to ischemic ATN from acute blood loss anemia. #2 metabolic acidosis improving #3 CK D stage III secondary to nephrosclerosis with a baseline creatinine of 1.0-1.5 MG per DL. #4 hyperkalemia resolved #5 hypertension with CKD #6 anemia multifactorial #7 complicated UTI Plan: #1 renal function stable. Continue with Lasix by mouth daily. #2 avoid nephrotoxic agents and hypotensive episodes.
[2020-10-19] MEDS: CYANOCOBALAMIN 500 MCG TAB PO SCH (16:43)
[2020-10-19] MEDS: FERROUS SULFATE 325 MG TAB PO SCH (16:43)
[2020-10-19] MEDS: ASCORBIC ACID 500 MG TAB PO SCH (16:43)
[2020-10-19] MEDS: CHOLECALCIFEROL 400 UNIT TAB PO SCH (16:44)
--- NOTE | 2020-10-19 22:35 | P.PN ---
Subjective Progress Note Date: 10/19/20 Principal diagnosis: GI bleed and BOBBY Ms. Fajardo is a 85-year-old female with a past medical history of atrial fibrillation, coronary artery disease, diabetes mellitus, GERD, hypertension, hyperlipidemia, chronic kidney disease stage III who was noted to have bright red stool per rectum while being cleaned at [facility], brought into the hospital via EMS. Patient is on anticoagulation with Eliquis. Patient is a poor historian as she has history of dementia. At the time of admission her hemoglobin was found to be 8 and a repeat a early from this morning was 6.7. As per discussion with nursing staff this morning, patient had a stool that was dark in color but no bright red blood noted. Currently patient is waiting to have a blood transfusion done. Review of systems could not be done as the patient is a poor historian. On reviewing the vitals temperature of 98.4, heart rate 84, respiratory rate 12, blood pressure 132/77 saturating at 97% on room air. On reviewing her labs hemoglobin is 6.7, platelets 443, white count of 10.3. BUN is 74 and creatinine of 2.9. On 10/19/2020 - Patient was seen and examined in the general medical floor. Patient is a poor historian. On talking with the nursing staff, patient had a dark-colored stool this morning on reviewing the labs her hemoglobin has been stable at 7.8. On reviewing her vitals temperature of 98.2, heart rate 100-1 10 respiratory rate 20, blood pressure 1 59-64 saturating at 98% on room air pat ient's creatinine is trending down it is 2.9 today. Active Medications Acetaminophen (Acetaminophen Tab 325 Mg Tab) 650 mg PO Q4H PRN PRN Reason: Pain or Fever > 100.5 Allopurinol (Allopurinol 300 Mg Tab) 150 mg PO DAILY [facility] Last Admin: 10/19/20 08:57 Dose: 150 mg Documented by: Ascorbic Acid (Ascorbic Acid 500 Mg Tab) 500 mg PO DAILY@1700 [facility] Last Admin: 10/19/20 16:43 Dose: 500 mg Documented by: Bisacodyl (Bisacodyl 10 Mg Supp) 10 mg RECTAL DAILY@0600 PRN PRN Reason: Constipation Cholecalciferol (Cholecalciferol 400 Unit Tab) 800 unit PO DAILY@1700 [facility] Last Admin: 10/19/20 16:44 Dose: 800 unit Documented by: Cyanocobalamin (Cyanocobalamin 500 Mcg Tab) 500 mcg PO DAILY@1700 [facility] Last Admin: 10/19/20 16:43 Dose: 500 mcg Documented by: Darbepoetin Harrison (Darbepoetin Harrison 40 Mcg/0.4 Ml Syringe) 40 mcg SQ Q7D [facility] Last Admin: 10/17/20 13:13 Dose: 40 mcg Documented by: Diltiazem HCl (Diltiazem Oral 30 Mg Tab) 90 mg PO BID@0800,1700 [facility] Last Admin: 10/19/20 16:43 Dose: 90 mg Documented by: Famotidine (Famotidine 20 Mg Tab) 20 mg PO DAILY@0600 [facility] Last Admin: 10/19/20 08:58 Dose: 20 mg Documented by: Ferrous Sulfate (Ferrous Sulfate 325 Mg Tab) 325 mg PO DAILY@1700 [facility] Last Admin: 10/19/20 16:43 Dose: 325 mg Documented by: Furosemide (Furosemide 40 Mg Tab) 40 mg PO DAILY@0800 [facility] Last Admin: 10/19/20 08:59 Dose: 40 mg Documented by: Hydralazine HCl (Hydralazine Hcl 50 Mg Tab) 50 mg PO TID@0600,1400,2200 [facility] Last Admin: 10/19/20 20:37 Dose: 50 mg Documented by: Hydralazine HCl (Hydralazine Hcl 25 Mg Tab) 25 mg PO TID@0600,1400,2200 [facility] Last Admin: 10/19/20 20:37 Dose: 25 mg Documented by: Naloxone HCl (Naloxone 0.4 Mg/Ml 1 Ml Vial) 0.2 mg IV Q2M PRN PRN Reason: Opioid Reversal Objective - Vital Signs Vital signs: Vital Signs Temp 98.2 F 10/19/20 08:00 Pulse 110 H 10/19/20 08:00 Resp 20 10/19/20 08:00 BP 159/64 10/19/20 08:00 Pulse Ox 98 10/19/20 08:00 Intake & Output 10/18/20 10/19/20 10/19/20 18:59 06:59 18:59 Intake Total 200 250 Output Total 4 Balance 196 250 Intake: Oral 250 Blood Product 200 Rc As-1 Unit 200 [id number] Output: Urine 3 Stool 1 Other: # Voids 3 # Bowel Movements 1 - Exam General: The patient appeared well nourished and normally developed. HEENT: Head exam is unremarkable. LUNGS: Breath sounds decreased at the lower lung bases HEART: Rate and Rhythm are regular. ABDOMEN: Soft, nontender. EXTREMITITES: No edema. - Labs CBC & Chem 7: 10/19/20 06:21 10/19/20 06:21 Labs: Abnormal Lab Results - Last 24 Hours (Table) 10/17/20 10/18/20 10/19/20 Range/Units 06:33 15:34 06:21 RBC 2.48 L 2.48 L (3.80-5.40) m/uL Hgb 7.9 L 7.8 L (11.4-16.0) gm/dL Hct 23.8 L 23.9 L (34.0-46.0) % RDW 16.9 H 16.8 H (11.5-15.5) % Neutrophils # 7.9 H (1.3-7.7) k/uL Carbon Dioxide (21.6-31.8) mmol/L BUN (9.0-27.0) mg/dL Creatinine (0.6-1.5) mg/dL Est GFR (CKD-EPI)AfAm (60.0-200.0) Est GFR (CKD-EPI)NonAf (60.0-200.0) BUN/Creatinine Ratio (12.00-20.00) Ratio Glucose (70-110) mg/dL Calcium (8.7-10.3) mg/dL Crossmatch See Detail 10/19/20 Range/Units 06:21 RBC (3.80-5.40) m/uL Hgb (11.4-16.0) gm/dL Hct (34.0-46.0) % RDW (11.5-15.5) % Neutrophils # (1.3-7.7) k/uL Carbon Dioxide 20.4 L (21.6-31.8) mmol/L BUN 69.0 H (9.0-27.0) mg/dL Creatinine 2.9 H (0.6-1.5) mg/dL Est GFR (CKD-EPI)AfAm 16.3 L (60.0-200.0) Est GFR (CKD-EPI)NonAf 14.1 L (60.0-200.0) BUN/Creatinine Ratio 23.79 H (12.00-20.00) Ratio Glucose 125 H (70-110) mg/dL Calcium 8.3 L (8.7-10.3) mg/dL Crossmatch Assessment and Plan Assessment: ASSESSMENT Acute blood loss anemia secondary to GI bleed Acute kidney injury Chronic kidney disease stage III Type 2 diabetes mellitus Hypertension Hyperlipidemia Chronic atrial fibrillation on anticoagulation with Eliquis on hold now Coronary artery disease Severe aortic stenosis History of skin cancer Moderate protein calorie malnutrition PLAN: General surgery is consulted for GI bleed, no acute intervention planned. Patient is received 1 unit of PRBCs for low hemoglobin of 6.7, yesterday and today her Hb is 7.8. Will transfuse if less than 7. Nephrology following the patient closely for acute kidney injury. We will repeat urinalysis with reflex cultures. continue with the current medication regimen and further recommendations to follow depending on the progress of the patient.
[2020-10-20] MEDS: hydrALAZINE HCL 50 MG TAB PO SCH ×4 (05:52→19:36)
[2020-10-20] MEDS: FAMOTIDINE 20 MG TAB PO SCH ×2 (05:52→05:59)
[2020-10-20] MEDS: hydrALAZINE HCL 25 MG TAB PO SCH ×3 (05:59→19:37)
[2020-10-20 06:12] LABS: Anisocytosis Slight; Basophils # (A) 0.1 k/uL (0-0.2); Basophils % (A) 1 %; Eosinophils # (A) 0.4 k/uL (0-0.7); Eosinophils % (A) 5 %; HGB 7.5 gm/dL (11.4-16.0); Lymphocytes # (A) 1.2 k/uL (1.0-4.8); Lymphocytes % (A) 13 %; MCH 31.2 pg (25.0-35.0); MCHC 32.7 g/dL (31.0-37.0); MCV 95.2 fL (80.0-100.0); Mean Platelet Volume 7.4; Monocytes # (A) 0.5 k/uL (0-1.0); Monocytes % (A) 5 %; Neutrophils # (A) 7.1 k/uL (1.3-7.7); Neutrophils % (A) 76 %; Platelet Count 391 k/uL (150-450); RBC 2.42 m/uL (3.80-5.40); RDW 16.9 % (11.5-15.5); WBC 9.4 k/uL (3.8-10.6)
[2020-10-20] MEDS: allopurinoL 300 MG TAB PO SCH (08:24)
[2020-10-20] MEDS: FUROSEMIDE 40 MG TAB PO SCH (08:24)
[2020-10-20] MEDS: DILTIAZEM ORAL 30 MG TAB PO SCH ×2 (08:24→17:53)
[2020-10-20 09:35] LABS: Anion Gap 11.5 mmol/L (4.00-12.00); BUN/Creat Ratio 22.14 Ratio (12.00-20.00); Calcium 8.4 mg/dL (8.7-10.3); Carbon Dioxide 20.5 mmol/L (21.6-31.8); Non-African American GFR(CKD) 14.7 (60.0-200.0); Potassium 4.7 mmol/L (3.5-5.5)
--- NOTE | 2020-10-20 13:15 | P.PN ---
Subjective Progress Note Date: 10/20/20 CHIEF COMPLAINT: GI bleed HISTORY OF PRESENT ILLNESS: Patient is being followed for a diverticular bleed. She's had no further active bleeding. No bowel movement. Hemoglobin 7.5. Patient did receive 1 unit of blood during her admission. Afebrile. She denies abdominal pain. She is tolerating regular diet. WBC 9.4 Hgb 7.5 nephrology following for acute kidney injury creatinine 2.8 PHYSICAL EXAM: VITAL SIGNS: Reviewed. GENERAL: Well-developed in no acute distress. HEENT: No sclera icterus. Extraocular movements grossly intact. Moist buccal mucosa. Head is atraumatic, normocephalic. ABDOMEN: Soft. Nondistended. Nontender. NEUROLOGIC: Alert and oriented. Cranial nerves II through XII grossly intact. ASSESSMENT: 1. Acute GI bleed likely secondary to diverticular bleed. Patient had colonoscopy on 09/29/2020 that showed diverticulosis and no active bleeding at that time 2. Acute blood loss anemia 3. Acute kidney injury followed by nephrology PLAN: -Continue supportive care. -Continue to monitor hemoglobin and for any active signs of bleeding -Eliquis remains on hold -No surgical intervention planned Physician Chocolate Temperer note has been reviewed by physician. Signing provider agrees with the documented findings, assessment, and plan of care. Objective - Vital Signs Vital signs: Vital Signs Temp 98.9 F 10/20/20 08:00 Pulse 76 10/20/20 08:00 Resp 18 10/20/20 08:00 BP 116/50 10/20/20 08:00 Pulse Ox 96 10/20/20 08:00 Intake & Output 10/19/20 10/20/20 10/20/20 18:59 06:59 18:59 Intake Total 260 Output Total 3 1 Balance 257 -1 Intake: Oral 260 Output: Urine 2 Stool 1 1 Other: Voiding Method Incontinent Incontinent Incontinent # Voids 1 1 # Bowel Movements 1 1 - Labs CBC & Chem 7: 10/20/20 05:32 10/20/20 05:32 Labs: Abnormal Lab Results - Last 24 Hours (Table) 10/20/20 10/20/20 Range/Units 05:32 05:32 RBC 2.42 L (3.80-5.40) m/uL Hgb 7.5 L (11.4-16.0) gm/dL Hct 23.0 L (34.0-46.0) % RDW 16.9 H (11.5-15.5) % Carbon Dioxide 20.5 L (21.6-31.8) mmol/L BUN 62.0 H (9.0-27.0) mg/dL Creatinine 2.8 H (0.6-1.5) mg/dL Est GFR (CKD-EPI)AfAm 17.0 L (60.0-200.0) Est GFR (CKD-EPI)NonAf 14.7 L (60.0-200.0) BUN/Creatinine Ratio 22.14 H (12.00-20.00) Ratio Glucose 117 H (70-110) mg/dL Calcium 8.4 L (8.7-10.3) mg/dL
--- NOTE | 2020-10-20 14:50 | PN ---
PROGRESS NOTE The patient is seen for followup for acute kidney injury. Her renal function has improved slightly with creatinine down to 2.8 from 3 and 2.9 mg/dL. Hemoglobin was low at 6.7 now at about 7.5 g/dL. PHYSICAL EXAMINATION: On examination, blood pressure was 116/50, heart rate 76 per minute. Patient is afebrile. EXAMINATION OF THE HEART: S1, S2. EXAMINATION OF THE LUNGS: Bilateral breath sounds are heard. Abdomen is soft, nontender. Examination of lower extremities shows no evidence of edema. COLLECTION ADMINISTRATOR exam grossly intact. LABS: Labs show sodium of 139, potassium 4.7, chloride 107, BUN of 62, serum creatinine 2.8, hemoglobin 7.5 g/dL. ASSESSMENT: 1. Acute kidney injury secondary to anemia and ischemic acute tubular necrosis from the anemia. 2. Metabolic acidosis, now improving. 3. Chronic kidney disease stage 3. Baseline creatinine about 1-1.5 mg/dL secondary to nephrosclerosis. 4. Hyperkalemia, resolved. 5. Complicated urinary tract infection. 6. Anemia multifactorial, no active bleeding. Maintained on Aranesp. PLAN: Continue to encourage increased oral intake. Continue current medications. The patient will need outpatient followup in about a week post discharge. MMODL / IJN: [id number] /
[2020-10-20] MEDS: CYANOCOBALAMIN 500 MCG TAB PO SCH (14:53)
[2020-10-20] MEDS: ASCORBIC ACID 500 MG TAB PO SCH (14:53)
[2020-10-20] MEDS: FERROUS SULFATE 325 MG TAB PO SCH (14:53)
[2020-10-20] MEDS: CHOLECALCIFEROL 400 UNIT TAB PO SCH (17:54)
--- NOTE | 2020-10-20 22:49 | P.PN ---
Subjective Progress Note Date: 10/20/20 Principal diagnosis: Weakness and anemia. The patient is admittedWith significant weakness and acute renal failure on chronic. With element of probably diverticular bleed. Recent colonoscopy but her frailty is somewhat hindering her. She is very lethargic this morning and difficult to arouse. Objective - Vital Signs Vital signs: Vital Signs Temp 98.1 F 10/20/20 20:00 Pulse 66 10/20/20 20:00 Resp 17 10/20/20 20:00 BP 123/61 10/20/20 20:00 Pulse Ox 99 10/20/20 20:00 Intake & Output 10/20/20 10/20/20 10/21/20 06:59 18:59 06:59 Output Total 1 Balance -1 Output: Stool 1 Other: Voiding Method Incontinent Incontinent Incontinent # Voids 1 4 # Bowel Movements 1 - Constitutional General appearance: Present: no acute distress - EENT Eyes: Absent: abnormal pupil - Neck Neck: Absent: lymphadenopathy - Respiratory Respiratory: bilateral: CTA - Cardiovascular Rhythm: regular Heart sounds: normal: S1, S2 Abnormal Heart Sounds: Absent: S3 Gallop - Gastrointestinal General gastrointestinal: Present: soft. Absent: tenderness - Musculoskeletal Musculoskeletal: Present: generalized weakness - Labs CBC & Chem 7: 10/20/20 05:32 10/20/20 05:32 Labs: Abnormal Lab Results - Last 24 Hours (Table) 10/17/20 10/20/20 10/20/20 Range/Units 06:33 05:32 05:32 RBC 2.42 L (3.80-5.40) m/uL Hgb 7.5 L (11.4-16.0) gm/dL Hct 23.0 L (34.0-46.0) % RDW 16.9 H (11.5-15.5) % Carbon Dioxide 20.5 L (21.6-31.8) mmol/L BUN 62.0 H (9.0-27.0) mg/dL Creatinine 2.8 H (0.6-1.5) mg/dL Est GFR (CKD-EPI)AfAm 17.0 L (60.0-200.0) Est GFR (CKD-EPI)NonAf 14.7 L (60.0-200.0) BUN/Creatinine Ratio 22.14 H (12.00-20.00) Ratio Glucose 117 H (70-110) mg/dL Calcium 8.4 L (8.7-10.3) mg/dL Crossmatch See Detail Assessment and Plan (1) Chronic atrial fibrillation Current Visit: Yes Status: Acute Code(s): I48.20 - CHRONIC ATRIAL FIBRILLATION, UNSPECIFIED SNOMED Code(s): 997944229 (2) Acute on chronic renal failure Current Visit: Yes Status: Acute Code(s): N17.9 - ACUTE KIDNEY FAILURE, UNSPECIFIED; N18.9 - CHRONIC KIDNEY DISEASE, UNSPECIFIED SNOMED Code(s): 051159507 (3) Gastrointestinal hemorrhage Current Visit: Yes Status: Acute Code(s): K92.2 - GASTROINTESTINAL HEMORRHAGE, UNSPECIFIED SNOMED Code(s): 81500406 (4) Anemia Current Visit: No Status: Acute Code(s): D64.9 - ANEMIA, UNSPECIFIED SNOMED Code(s): 466797930 (5) Diabetes Current Visit: No Status: Chronic Code(s): E11.9 - TYPE 2 DIABETES MELLITUS WITHOUT COMPLICATIONS SNOMED Code(s): 01128863 (6) History of hyperlipidemia Current Visit: No Status: Chronic Code(s): Z86.39 - PERSONAL HISTORY OF ENDO, NUTRITIONAL AND METABOLIC DISEASE SNOMED Code(s): 738270457 (7) History of hypertension Current Visit: No Status: Chronic Code(s): Z86.79 - PERSONAL HISTORY OF OTHER DISEASES OF THE CIRCULATORY SYSTEM SNOMED Code(s): 481689379 (8) Tobacco dependence in remission Current Visit: No Status: Resolved Code(s): F17.201 - NICOTINE DEPENDENCE, UNSPECIFIED, IN REMISSION SNOMED Code(s): 186906413 Plan: Appreciate multiple consultants including nephrology and general surgery. We will check CMP in a.m. and serial CBC. Prognosis guarded secondary to her frailty and multiple comorbidities. I worry that this element of renal disease is her new baseline. Increase PT
[2020-10-21] MEDS: hydrALAZINE HCL 25 MG TAB PO SCH ×2 (06:05→13:29)
[2020-10-21] MEDS: hydrALAZINE HCL 50 MG TAB PO SCH ×2 (06:06→13:29)
[2020-10-21] MEDS: FAMOTIDINE 20 MG TAB PO SCH (06:06)
[2020-10-21 06:20] LABS: Anisocytosis Slight; HCT 22.6 % (34.0-46.0); HGB 7.3 gm/dL (11.4-16.0); Hypochromasia Slight; MCH 31.5 pg (25.0-35.0); MCHC 32.5 g/dL (31.0-37.0); Macrocytosis Slight; Mean Platelet Volume 7.3; Platelet Count 360 k/uL (150-450); RBC 2.33 m/uL (3.80-5.40); RDW 16.8 % (11.5-15.5); WBC 10.2 k/uL (3.8-10.6)
[2020-10-21 07:48] VITALS: RESP 18
[2020-10-21] MEDS: DILTIAZEM ORAL 30 MG TAB PO SCH (08:05)
[2020-10-21] MEDS: allopurinoL 300 MG TAB PO SCH (08:06)
[2020-10-21] MEDS: FUROSEMIDE 40 MG TAB PO SCH (08:07)
[2020-10-21 10:11] LABS: Albumin/Globulin Ratio 1.58 (1.60-3.17); Anion Gap 7.2 mmol/L (4.00-12.00); BUN/Creat Ratio 20.36 Ratio (12.00-20.00); Calcium 8.2 mg/dL (8.7-10.3); Carbon Dioxide 20.8 mmol/L (21.6-31.8); Globulin 1.9 g/dL (1.6-3.3); Non-African American GFR(CKD) 14.7 (60.0-200.0); Potassium 4.3 mmol/L (3.5-5.5); Total Bilirubin 0.2 mg/dL (0.3-1.2); Total Protein 4.9 g/dL (6.2-8.2)
--- NOTE | 2020-10-21 11:16 | P.PN ---
Subjective Progress Note Date: 10/21/20 CHIEF COMPLAINT: GI bleed HISTORY OF PRESENT ILLNESS: Patient is being followed for a diverticular bleed. She's had no further active bleeding. No bowel movement. Hemoglobin 7.3 stable. Afebrile. WBC 10.2. Tolerating regular diet. Patient remains off of her Eliquis PHYSICAL EXAM: VITAL SIGNS: Reviewed. GENERAL: Well-developed in no acute distress. HEENT: No sclera icterus. Extraocular movements grossly intact. Moist buccal mucosa. Head is atraumatic, normocephalic. ABDOMEN: Soft. Nondistended. Nontender. NEUROLOGIC: Alert and oriented. Cranial nerves II through XII grossly intact. ASSESSMENT: 1. Acute GI bleed likely secondary to diverticular bleed. Patient had colonoscopy on 09/29/2020 that showed diverticulosis and no active bleeding at that time 2. Acute blood loss anemia 3. Acute kidney injury followed by nephrology PLAN: -Recommend that patient remains off of the Eliquis due to recurrent GI bleeds -No surgical intervention planned -Patient can be discharge from surgical standpoint Physician Provider Enrollment Specialist note has been reviewed by physician. Signing provider agrees with the documented findings, assessment, and plan of care. Objective - Vital Signs Vital signs: Vital Signs Temp 98.2 F 10/21/20 07:47 Pulse 85 10/21/20 07:47 Resp 18 10/21/20 07:47 BP 127/64 10/21/20 07:47 Pulse Ox 95 10/21/20 07:47 Intake & Output 10/20/20 10/21/20 10/21/20 18:59 06:59 18:59 Intake Total 120 Balance 120 Intake: Oral 120 Other: Voiding Method Incontinent Incontinent Incontinent # Voids 4 2 1 - Labs CBC & Chem 7: 10/21/20 06:01 10/21/20 06:01 Labs: Abnormal Lab Results - Last 24 Hours (Table) 10/17/20 10/21/20 10/21/20 Range/Units 06:33 06:01 06:01 RBC 2.33 L (3.80-5.40) m/uL Hgb 7.3 L (11.4-16.0) gm/dL Hct 22.6 L (34.0-46.0) % RDW 16.8 H (11.5-15.5) % Carbon Dioxide 20.8 L (21.6-31.8) mmol/L BUN 57.0 H (9.0-27.0) mg/dL Creatinine 2.8 H (0.6-1.5) mg/dL Est GFR (CKD-EPI)AfAm 17.0 L (60.0-200.0) Est GFR (CKD-EPI)NonAf 14.7 L (60.0-200.0) BUN/Creatinine Ratio 20.36 H (12.00-20.00) Ratio Glucose 133 H (70-110) mg/dL Calcium 8.2 L (8.7-10.3) mg/dL Total Bilirubin 0.2 L (0.3-1.2) mg/dL Total Protein 4.9 L (6.2-8.2) g/dL Albumin 3.00 L (3.80-4.90) g/dL Albumin/Globulin Ratio 1.58 L (1.60-3.17) g/dL Crossmatch See Detail
--- NOTE | 2020-10-21 12:31 | P.DS ---
Providers Date of admission: 10/17/20 07:43 Attending physician: Orion Bose Consults: 10/17/20 08:16 Consult Physician Urgent Consulting Provider: Carroll Cespedes Consult Reason/Comments: GI bleed Do you want consulting provider notified?: Yes Consult Physician Urgent Consulting Provider: Iesha Chavez Consult Reason/Comments: Acute kidney failure, UTI Do you want consulting provider notified?: Yes Primary care physician: Orion Bose - Discharge Diagnosis(es) (1) Chronic atrial fibrillation Current Visit: Yes Status: Acute (2) Acute on chronic renal failure Current Visit: Yes Status: Acute (3) Gastrointestinal hemorrhage Current Visit: Yes Status: Acute (4) Anemia Current Visit: No Status: Acute (5) Diabetes Current Visit: No Status: Chronic (6) History of hyperlipidemia Current Visit: No Status: Chronic (7) History of hypertension Current Visit: No Status: Chronic (8) Tobacco dependence in remission Current Visit: No Status: Resolved Hospital Course: This is a discharge summary on an 85-year-old white who is essentially admitted for acute on chr. She has history of probable diverticular bleed. Nephrology and surgery were then consult. The patient did quite well and is now at her baseline weakness. Due to her Overt comorbidities, I suspect she will be struggling with weakness. The patient will be transferred back to-2 weeks. Patient Condition at Discharge: Stable Plan - Discharge Summary New Discharge Prescriptions: New Darbepoetin Harrison [Aranesp] 40 mcg SQ Q7D syringe Continue Potassium Chloride [K-Tab ER] 10 meq PO DAILY@1700 hydrALAZINE HCL [Apresoline] 50 mg PO TID@0600,1400,2200 Magnesium Oxide 400 mg PO DAILY@0800 Ascorbic Acid [Vitamin C] 500 mg PO DAILY@1700 Cholecalciferol [Vitamin D3 (10 Mcg = 400 Iu)] 800 unit PO DAILY@1700 lisinopriL [Zestril] 2.5 mg PO HS Docusate [Colace] 200 mg PO DAILY@1700 allopurinoL [Zyloprim] 150 mg PO DAILY Diltiazem HCl [Cardizem] 90 mg PO BID@0800,1700 Acetaminophen [Tylenol] 650 mg PO Q4H PRN PRN Reason: Pain Or Fever > 100.5 Vitamin E 400 unit PO DAILY@1700 Polyethylene Glycol 3350 [Miralax] 17 gm PO DAILY@0800 Multivitamins, Thera [Multivitamin (formulary)] 1 tab PO DAILY@1700 hydrALAZINE HCL 25 mg PO TID@0600,1400,2200 Lovastatin [Altoprev] 20 mg PO HS Aspirin 81 mg PO DAILY@0900 traMADol HCl [Ultram] 50 mg PO QID PRN PRN Reason: Pain Ondansetron [Zofran] 4 mg PO Q8HR PRN PRN Reason: Nausea And Vomiting Na Phos,M-B/Na Phos,Di-Ba [Fleet Adult] 133 ml RECTAL DAILY PRN PRN Reason: Constipation Magnesium Hydroxide [Milk of Magnesia Concentrate] 7,200 mg PO DAILY PRN PRN Reason: Constipation bisacodyL [Dulcolax] 10 mg RECTAL DAILY@0600 PRN PRN Reason: Constipation Acetaminophen Suppository [Tylenol Suppository] 650 mg RECTAL Q4H PRN PRN Reason: Pain Or Fever > 100.5 Triamcinolone 0.5% Cream [Kenalog 0.5% Cream] 1 applic TOPICAL BID Nystatin 100,000Unit/gm Cream [Mycostatin Cream] 1 applic TOPICAL BID Megestrol [Megace] 400 mg PO DAILY@0800 Furosemide [Lasix] 40 mg PO DAILY@0800 Ferrous Sulfate [Iron (65 MG Elemental)] 325 mg PO DAILY@1700 Famotidine [Pepcid] 20 mg PO DAILY@0600 Lactose-Reduced Food [Ensure Plus] 237 ml PO DAILY Ensure Clear 237 ml PO DAILY@1700 Cyanocobalamin [Vitamin B-12] 500 mcg PO DAILY@1700 Discontinued Apixaban [Eliquis] 2.5 mg PO BID@0800,1700 Discharge Medication List Potassium Chloride [K-Tab ER] 10 meq PO DAILY@1700 06/23/14 [History] hydrALAZINE HCL [Apresoline] 50 mg PO TID@0600,1400,2200 12/08/16 [History] Magnesium Oxide 400 mg PO DAILY@0800 02/17/17 [History] Ascorbic Acid [Vitamin C] 500 mg PO DAILY@1700 01/29/18 [History] Cholecalciferol [Vitamin D3 (10 Mcg = 400 Iu)] 800 unit PO DAILY@1700 07/21/20 [History] Docusate [Colace] 200 mg PO DAILY@169907/21/20 [History] lisinopriL [Zestril] 2.5 mg PO HS 07/21/20 [History] Acetaminophen [Tylenol] 650 mg PO Q4H PRN 09/06/20 [History] Aspirin 81 mg PO DAILY@0909/06/20 [History] Diltiazem HCl [Cardizem] 90 mg PO BID@0800,17009/06/20 [History] Lovastatin [Altoprev] 20 mg PO HS 09/06/20 [History] Multivitamins, Thera [Multivitamin (formulary)] 1 tab PO DAILY@169909/06/20 [History] Polyethylene Glycol 3350 [Miralax] 17 gm PO DAILY@0809/06/20 [History] Vitamin E 400 unit PO DAILY@169909/06/20 [History] allopurinoL [Zyloprim] 150 mg PO DAILY 09/06/20 [History] hydrALAZINE HCL 25 mg PO TID@0600,1400,2200 09/06/20 [History] Acetaminophen Suppository [Tylenol Suppository] 650 mg RECTAL Q4H PRN 10/17/20 [History] Cyanocobalamin [Vitamin B-12] 500 mcg PO DAILY@169910/17/20 [History] Ensure Clear 237 ml PO DAILY@169910/17/20 [History] Famotidine [Pepcid] 20 mg PO DAILY@0610/17/20 [History] Ferrous Sulfate [Iron (65 MG Elemental)] 325 mg PO DAILY@169910/17/20 [History] Furosemide [Lasix] 40 mg PO DAILY@79910/17/20 [History] Lactose-Reduced Food [Ensure Plus] 237 ml PO DAILY 10/17/20 [History] Magnesium Hydroxide [Milk of Magnesia Concentrate] 7,200 mg PO DAILY PRN 10/17/20 [History] Megestrol [Megace] 400 mg PO DAILY@79910/17/20 [History] Na Phos,M-B/Na Phos,Di-Ba [Fleet Adult] 133 ml RECTAL DAILY PRN 10/17/20 [History] Nystatin 100,000Unit/gm Cream [Mycostatin Cream] 1 applic TOPICAL BID 10/17/20 [History] Ondansetron [Zofran] 4 mg PO Q8HR PRN 10/17/20 [History] Triamcinolone 0.5% Cream [Kenalog 0.5% Cream] 1 applic TOPICAL BID 10/17/20 [History] bisacodyL [Dulcolax] 10 mg RECTAL DAILY@0600 PRN 10/17/20 [History] traMADol HCl [Ultram] 50 mg PO QID PRN 10/17/20 [History] Darbepoetin Harrison [Aranesp] 40 mcg SQ Q7D syringe 10/21/20 [Rx] Follow up Appointment(s)/Referral(s): Natalia Torres MD [STAFF PHYSICIAN] - 1 Week Orion Bose MD [Primary Care Provider] - 1-2 days Patient Instructions/Handouts: Gastrointestinal Bleeding (DC) Activity/Diet/Wound Care/Special Instructions: No Eliquis activity as tolerated regular diet right heel ulcer-wear boot and elevate heels
[2020-10-21 13:32] VITALS: BP 116/41; PULSE 75; TEMP 97.6
--- NOTE | 2020-10-21 16:36 | PN ---
PROGRESS NOTE Patient is seen for followup for chronic kidney disease and acute kidney injury. Her renal function is stable. There are plans for discharge today. Patient denies any significant complaints. PHYSICAL EXAMINATION: On examination today, blood pressure was 127/64, heart rate 85 per minute. She is afebrile. EXAMINATION OF THE HEART: S1, S2. EXAMINATION OF LUNGS: Decreased breath sounds at bases. ABDOMEN: Soft, nontender, obese . Exam of lower extremities shows trace edema bilaterally. CHILDREN'S LITERATURE PROFESSOR exam grossly intact. LABS: Labs show sodium 137, potassium 4.3, chloride 109, BUN 57, serum creatinine 2.8 today. ASSESSMENT: 1. Acute kidney injury, stable, slightly improved although creatinine staying at about 2.8, which is down from about 3.2 on initial admission. 2. Metabolic acidosis, currently improved. 3. Chronic kidney disease stage 3 baseline creatinine 1-1.5 secondary to nephrosclerosis. 4. Complicated urinary tract infection. 5. Anemia multifactorial including anemia of chronic disease. No active bleeding noted. Maintained on Aranesp. 6. Hyperkalemia, now resolved. PLAN: Patient is stable for discharge. Will change the Aranesp to Procrit. She will need to follow up in about one week post discharge. May continue the current dose of Lasix. MMODL / IJN: [id number] /
== END 2020-10-21 16:15 | DRG 377 ==
LOC: EC 06:08 → 5NMEDONC 07:43
PROVIDERS: ADMIT Family Medicine; ATTEND Family Medicine
PROC: 30233N1 Transfusion of Nonautologous Red Blood Cells into Peripheral Vein, Percutaneous Approach (ICD-10-PCS; principal; 2020-10-18)
DX: K57.91 Diverticulosis of intestine, part unspecified, without perforation or abscess with bleeding (principal); N17.0 Acute kidney failure with tubular necrosis; N39.0 Urinary tract infection, site not specified; I48.20 Chronic atrial fibrillation, unspecified; D62 Acute posthemorrhagic anemia; E87.2 Acidosis; E44.0 Moderate protein-calorie malnutrition; Q21.1 Atrial septal defect; L97.419 Non-pressure chronic ulcer of right heel and midfoot with unspecified severity; D63.8 Anemia in other chronic diseases classified elsewhere; E11.22 Type 2 diabetes mellitus with diabetic chronic kidney disease; F03.90 Unspecified dementia, unspecified severity, without behavioral disturbance, psychotic disturbance, mood disturbance, and anxiety; E11.621 Type 2 diabetes mellitus with foot ulcer; N18.31 Chronic kidney disease, stage 3a; I12.9 Hypertensive chronic kidney disease with stage 1 through stage 4 chronic kidney disease, or unspecified chronic kidney disease; Z20.822 Contact with and (suspected) exposure to COVID-19; I44.0 Atrioventricular block, first degree; I44.4 Left anterior fascicular block; E78.5 Hyperlipidemia, unspecified; E87.5 Hyperkalemia; I25.10 Atherosclerotic heart disease of native coronary artery without angina pectoris; K59.00 Constipation, unspecified; Z68.28 Body mass index [BMI] 28.0-28.9, adult; K21.9 Gastro-esophageal reflux disease without esophagitis; M54.9 Dorsalgia, unspecified; R32 Unspecified urinary incontinence; R53.1 Weakness; M19.90 Unspecified osteoarthritis, unspecified site; F17.201 Nicotine dependence, unspecified, in remission; Z79.01 Long term (current) use of anticoagulants; Z79.82 Long term (current) use of aspirin; Z79.899 Other long term (current) drug therapy; Z95.2 Presence of prosthetic heart valve; Z85.828 Personal history of other malignant neoplasm of skin; Z98.890 Other specified postprocedural states; Z95.5 Presence of coronary angioplasty implant and graft; Z98.49 Cataract extraction status, unspecified eye; Z71.3 Dietary counseling and surveillance; Z88.6 Allergy status to analgesic agent; Z88.1 Allergy status to other antibiotic agents; Z82.3 Family history of stroke; Z83.3 Family history of diabetes mellitus; Z82.49 Family history of ischemic heart disease and other diseases of the circulatory system; Z81.8 Family history of other mental and behavioral disorders
CPT/HCPCS: 36415; 51702; 80048; 80053; 81001; 82272; 82728; 83540; 83605; 83735; 84484; 85025; 85027; 85610; 85730; 86850; 86900; 86901; 86920; 87635; 93005; 96361; 96374; 99285